=== PATIENT | female | born 1960 | race Caucasian/White ===

== ENCOUNTER → 2016-09-13 | Outpatient (CLI) | payer MEDICARE, MEDICAID ==
[~2016-09-13] MED LIST: AC500T PO; ALBU0.8322 IH; ALBU17AE23 IH; ALPR0.5T72 PO; ALPR1T PO; AMLO5TAB2 PO; ASP81CT PO; ASP81TEC PO; ATOR20TA49 PO; ATOR40TA PO; ATR20T PO; BACL10TA PO; BPR150TCR PO; BREO INH; CLCX200C PO; CPR500T PO; CYCL10TA45 PO; CYCL5TAB PO; DULO60CA6 PO; ESCI20TA38 PO; FLUT100D IH; FLUT9.9S NS; FURO20TA4 PO; HYDR-3062 PO; HYDR-3714 PO; ISOS30TA7 PO; ISOS30TA74 PO; KCL10CCR PO; LATA2.5D5 OU; LISI5TAB PO; LORA10TA7 PO; NAPR-243 PO; NF-ESOM40C PO; NTR.4SL SL; OMEG1CAP PO; ONDAN4ODT PO; POTA10CA43 PO; PRD10T PO; PREG75CA PO; PRM25T PO; PRO AIR; QUET200T PO; QUET300T PO; QUET300T3 PO; QUET50TA PO; RNT150T PO; RT-ALBUINH IH; RT-ALBUTEROL SULF 2.5 MG/3 ML PRE-MIX VIAL IH ONE; RT-ALBUTEROL SULF 2.5 MG/3 ML PRE-MIX VIAL ONE; SOD SULFACET; SUCR1TAB36 PO; TOPI100T11 PO; TOPI200T19 PO; TOPI50TA2 PO; TRAZ50TA67 PO; TRM50T PO; VARE1TAB17 PO; VILA20TA PO; [UNRECOGNIZED DRUG - OTHER]
== END ==
LOC: RT 10:15
PROVIDERS: ATTEND Nurse Practitioner Family
DX: R05 Cough (principal); R06.02 Shortness of breath; J44.9 Chronic obstructive pulmonary disease, unspecified; Z72.0 Tobacco use
CPT/HCPCS: 94060; 94640; 94726; 94729

== ENCOUNTER → 2016-10-04 | Outpatient (CLI) | payer MEDICARE, MEDICAID ==
[~2016-10-04] MED LIST changes: -RT-ALBUTEROL SULF 2.5 MG/3 ML PRE-MIX VIAL IH ONE; -RT-ALBUTEROL SULF 2.5 MG/3 ML PRE-MIX VIAL ONE
== END ==
LOC: RAD 11:44
PROVIDERS: ATTEND Internal Medicine Cardiovascular Disease
DX: I25.10 Atherosclerotic heart disease of native coronary artery without angina pectoris (principal); I65.23 Occlusion and stenosis of bilateral carotid arteries; I73.9 Peripheral vascular disease, unspecified; R06.02 Shortness of breath; Z72.0 Tobacco use
CPT/HCPCS: 93923

== ENCOUNTER → 2017-08-06 | Outpatient (CLI) | payer MEDICARE, MEDICAID ==
--- NOTE | 2017-08-06 12:22 | Diagnostic Imaging Report ---
PROCEDURE: MRI lumbar spine. TECHNIQUE: Multiplanar, multisequence MRI of the lumbar spine was performed without contrast. INDICATION: Low back pain. Correlation is made with prior MRI lumbar spine study from 09/08/2015. FINDINGS: Left convexity scoliotic curvature is noted. Lordotic curvature is normal. There appeared to be chronic compression fracture deformities involving T11 and L4, similar to prior study. Remaining lumbar vertebrae show normal stature and normal marrow signal intensity. No geographic marrow lesion is seen. Mild generalized disc desiccation is noted but no significant loss of disc space is seen. The conus is unremarkable at the L1 level. T12-L1: No central canal or neuroforaminal stenosis is identified. L1-L2: The degree of disc bulging seen on prior MRI is much improved. No significant disc bulge is present on today's study. No central canal or neuroforaminal stenosis is seen. There is some minimal linear signal noted in the posterior annulus midline at this level which may be owing to degeneration. L2-L3: There is ligamentous thickening and facet changes as well as mild annular bulging. However, no significant central canal or neuroforaminal stenosis is seen. L3-L4: There is ligamentous thickening and facet changes as well as broad-based disc/osteophyte complex. This does again demonstrate significant central canal stenosis, similar to prior exam. There is also mild left and moderate right neuroforaminal stenosis. L4-L5: Annular bulging is seen. Central canal is patent. The neuroforamina are patent. L5-S1: Central canal is patent. No neuroforaminal stenosis is seen. There are degenerative changes to the facets. Paraspinous tissues are unremarkable. IMPRESSION: Multilevel lumbar spondylosis and scoliosis, most marked at the L3-L4 level where there is central canal stenosis. This is similar to prior MRI from 09/08/2015. No acute compression fracture is detected. Dictated by: Dictated on workstation # [id number]
== END ==
LOC: RAD 11:17
PROVIDERS: ATTEND Orthopaedic Surgery
DX: M48.061 Spinal stenosis, lumbar region without neurogenic claudication (principal); M47.816 Spondylosis without myelopathy or radiculopathy, lumbar region; M41.86 Other forms of scoliosis, lumbar region
CPT/HCPCS: 72148

== ENCOUNTER 2017-10-16 11:34 | Outpatient (CLI) | payer MEDICARE, MEDICAID ==
[~2017-10-16] VITALS: Ht 165.1 cm; Wt 70.3 kg
[2017-10-16 11:41] VITALS: BP 113/66
[2017-10-16] MEDS ORDERED: OMEG-105 PO (12:30)
[2017-10-16] MEDS ORDERED: ESOM40CA52 PO (12:30)
[2017-10-16] MEDS ORDERED: FURO20TA4 PO (12:30)
[2017-10-16] MEDS ORDERED: ESCI20TA45 PO (12:30)
[2017-10-16] MEDS ORDERED: ISOS30TA3 PO (12:30)
[2017-10-16] MEDS ORDERED: TOPI200T8 PO (12:30)
[2017-10-16] MEDS ORDERED: ACHD5005 PO (12:30)
[2017-10-16] MEDS ORDERED: PREG100C PO (12:30)
[2017-10-16] MEDS ORDERED: FLUT1AER IH (12:30)
[2017-10-16] MEDS ORDERED: RT-ALBUINH IH (12:30)
[2017-10-16] MEDS ORDERED: POTA10TA10 PO (12:30)
[2017-10-16] MEDS ORDERED: ASPI-586 PO (12:30)
[2017-10-16] MEDS ORDERED: UMEC62.5 IH (12:33)
[2017-10-16 12:40] LABS: BASOPHILS % (AUTO) 0 % (0-10); EOSINOPHILS # (AUTO) 0.2 10^3/uL (0.0-0.3); EOSINOPHILS % (AUTO) 2 % (0-10); HEMATOCRIT 39 % (35-52); HEMOGLOBIN 13.2 G/DL (11.5-16.0); LYMPHOCYTES # (AUTO) 2.7 X 10^3 (1.0-4.0); LYMPHOCYTES % (AUTO) 40 % (12-44); MEAN CORPUSCULAR HEMOGLOBIN 30 PG (25-34); MEAN CORPUSCULAR HGB CONC 34 G/DL (32-36); MEAN CORPUSCULAR VOLUME 89 FL (80-99); MEAN PLATELET VOLUME 11.6 FL (7.4-10.4); MONOCYTES # (AUTO) 0.5 X 10^3 (0.0-1.0); MONOCYTES % (AUTO) 8 % (0-12); NEUTROPHILS # (AUTO) 3.3 X 10^3 (1.8-7.8); NEUTROPHILS % (AUTO) 50 % (42-75); PLATELET COUNT 185 10^3/uL (130-400); RED BLOOD COUNT 4.42 10^6/uL (4.35-5.85); RED CELL DISTRIBUTION WIDTH 13.3 % (10.0-14.5); WHITE BLOOD COUNT 6.7 10^3/uL (4.3-11.0)
[2017-10-16 13:14] LABS: BUN/CREATININE RATIO 11; CALCIUM 8.5 MG/DL (8.5-10.1); CARBON DIOXIDE 23 MMOL/L (21-32); CHLORIDE 110 MMOL/L (98-107); CREATININE SERUM 0.81 MG/DL (0.60-1.30); GFR ESTIMATED > 60; GLUCOSE 86 MG/DL (70-105); POTASSIUM 3.6 MMOL/L (3.6-5.0); SODIUM 141 MMOL/L (135-145)
[2017-10-16] MEDS ORDERED: LATA2.5D5 OU (13:19)
[2017-10-16] MEDS ORDERED: SUMA50TA2 PO (13:19)
[2017-10-16] MEDS ORDERED: BUPR100T7 PO (13:19)
[2017-10-16] MEDS ORDERED: MONT10TA24 PO (13:19)
[2017-10-16] MEDS ORDERED: FLUT15.88 NSEACH (13:19)
[2017-10-16] MEDS ORDERED: ALBU0.63 IH (13:19)
== END 2017-10-16 12:10 | disposition home or self-care (01) ==
LOC: PREOP 11:34
PROVIDERS: ATTEND Orthopaedic Surgery
DX: Z01.812 Encounter for preprocedural laboratory examination (principal); Z11.2 Encounter for screening for other bacterial diseases; M48.061 Spinal stenosis, lumbar region without neurogenic claudication
CPT/HCPCS: 36415; 80048; 85025; 87081

== ENCOUNTER 2017-10-22 08:45 | Day surgery (SDC) | payer MEDICARE, MEDICAID ==
[~2017-10-22] VITALS: Ht 165.1 cm; Wt 70.3 kg
[~2017-10-22 08:45] MED LIST changes: +ACHD5005 PO; +ALBU0.63 IH; +ASPI-586 PO; +BUPR100T7 PO; +ESCI20TA45 PO; +ESOM40CA52 PO; +FLUT15.88 NSEACH; +FLUT1AER IH; +ISOS30TA3 PO; +MONT10TA24 PO; +OMEG-105 PO; +POTA10TA10 PO; +PREG100C PO; +SUMA50TA2 PO; +TOPI200T8 PO; +UMEC62.5 IH
[2017-10-22] MEDS ORDERED: proPOfol 200 MG/20 ML (DIPRIVAN) VIAL IV ONE (08:53)
[2017-10-22] MEDS ORDERED: SEVOFLURANE (ULTANE) 15 ML INHAL SOLN ONE ×2 (08:53→12:04)
[2017-10-22] MEDS ORDERED: ROCURONIUM 10 MG/ML 5 ML SYRINGE IV ONE (08:53)
[2017-10-22] MEDS ORDERED: LIDOCAINE PF 2% 5 ML (XYLOCAINE) VIAL ONE (08:53)
[2017-10-22] MEDS ORDERED: MIDAZOLAM 2 MG/2 ML (VERSED) VIAL ONE (08:53)
[2017-10-22] MEDS ORDERED: fentaNYL INJECTION 250 MCG/5 ML AMP ONE (08:53)
[2017-10-22] MEDS ORDERED: ONDANSETRON 4 MG/2 ML (SDV) Z0FRAN ONE (08:53)
[2017-10-22] MEDS ORDERED: NICOTINE 14 MG (NICODERM) PATCH TD SCH (09:00)
[2017-10-22] MEDS ORDERED: RT-ALBUTEROL SULF 2.5 MG/3 ML PRE-MIX VIAL INH ONE (09:15)
[2017-10-22] MEDS ORDERED: BACITRACIN 100,000 UNIT/NS 1000 ML POUR BOTTLE IR ONE ×2 (09:30)
[2017-10-22] MEDS ORDERED: ceFAZolin 2 GM IV Premixed 50 ML IV ONE (09:30)
[2017-10-22] MEDS: LACTATED RINGERS 1,000 ML IV PRN ×2 (09:35→11:25)
[2017-10-22] MEDS ORDERED: VANCOMYCIN 1000 MG/VIAL ONE (09:41)
[2017-10-22] MEDS ORDERED: DEXMEDETOMIDINE 200 MCG/2 ML (PRECEDEX) VIAL IV ONE (10:17)
[2017-10-22] MEDS ORDERED: BUP/EPI 0.5% 1:200,000 (SENSORCAINE) 30 ML VIAL ONE (11:06)
[2017-10-22] MEDS ORDERED: DEXAMETHASONE 10 MG/ML (DECADRON) 1 ML VIAL ONE (11:33)
[2017-10-22] MEDS ORDERED: NEOSTIGMINE 1 MG/ML 5 ML SYRINGE ONE (11:48)
[2017-10-22] MEDS ORDERED: GLYCOPYRROLATE 0.2 MG/ML (ROBINUL) 2 ML VIAL ONE (11:48)
[2017-10-22] MEDS ORDERED: ONDANSETRON 4 MG/2 ML (SDV) Z0FRAN IVP PRN (12:15)
[2017-10-22] MEDS ORDERED: morphine INJ 10 MG/ML 1ML (SYR OR VIAL) IVP PRN (12:15)
[2017-10-22] MEDS ORDERED: BACLOFEN 10 MG (LIORESAL) TAB PO PRN (12:30)
[2017-10-22] MEDS ORDERED: BISACODYL 5 MG (DULCOLAX) TABLET PO PRN (12:30)
[2017-10-22] MEDS ORDERED: SUMAtriptan 50 MG (IMITREX) TAB PO PRN (12:30)
[2017-10-22] MEDS ORDERED: BISACODYL 10 MG SUPP (DULCOLAX) PR PRN (12:30)
[2017-10-22] MEDS ORDERED: RT-ALBUTEROL SULF 2.5 MG/3 ML PRE-MIX VIAL IH PRN (12:30)
[2017-10-22] MEDS ORDERED: NON-FORMULARY MEDICATION 1 EA EA (Albuterol Sulfate 0.63 MG) IH PRN (12:30)
[2017-10-22] MEDS ORDERED: PROMETHAZINE 25 MG (PHENERGAN) TAB PO PRN (12:30)
[2017-10-22] MEDS ORDERED: ACETAMINOPHEN 325 MG TABLET/CAPLET (TYLENOL) PO PRN (12:30)
[2017-10-22] MEDS ORDERED: oxyCODONE/APAP 5/325MG (PERCOCET 5) TABLET PO PRN (12:30)
[2017-10-22] MEDS ORDERED: ONDANSETRON 4 MG/2 ML (SDV) Z0FRAN IV PRN (12:30)
[2017-10-22 13:00] VITALS: BP 93/51
[2017-10-22] MEDS: HYDROcodone/APAP 5 MG/325 MG (LORTAB) TAB PO PRN ×2 (13:30→21:23)
[2017-10-22] MEDS ORDERED: PATIENT MAY USE OWN MEDS, ALL MC SCH (13:45)
[2017-10-22] MEDS: SUCRALFATE 1 GM (CARAFATE) TAB PO SCH ×2 (13:45→21:24)
[2017-10-22] MEDS: PREGABALIN 100 MG (LYRICA) CAPSULE PO SCH ×2 (14:00→22:35)
--- NOTE | 2017-10-22 14:38 | Diagnostic Imaging Report ---
Indication: Fluoroscopy for lumbar spine surgery. Fluoroscopy was provided in the OR during lumbar spine surgery. Seven seconds of fluoroscopy was utilized. Two images were obtained. Surgical instruments are noted in the posterior soft tissues at the L4-5 level. Impression: Fluoroscopy for lumbar spine surgery. Dictated by: Dictated on workstation # [id number]
[2017-10-22 15:20] VITALS: BP 84/50
[2017-10-22] MEDS: fentaNYL INJECTION 100 MCG/2 ML AMP IVP PRN ×2 (15:35→22:42)
[2017-10-22] MEDS: ceFAZolin INJECTION 1,000 MG in NS (IVPB) 50 ML IV SCH (16:25)
--- NOTE | 2017-10-22 17:17 | OPERATIVE REPORT ---
DATE OF SERVICE: 10/22/2017 SURGEON: Natalie Gomez DO MERCHANT MARINER: SHAUNA Foy This is a medically necessary procedure. Assistance is necessary for retraction of vital neurovascular structures. Without an assistant clinical nurse manager, the procedure would not be possible. PREOPERATIVE DIAGNOSES: 1. Lumbar spinal stenosis (central, connective tissue). 2. Lumbar radiculopathy. 3. Neurogenic claudication. POSTOPERATIVE DIAGNOSES: 1. Lumbar spinal stenosis (central, connective tissue). 2. Lumbar radiculopathy. 3. Neurogenic claudication. PROCEDURE PERFORMED: L3-4 bilateral laminectomy with hemifacetectomy and foraminotomies. COMPLICATIONS: None. SPECIMENS: None. DRAINS PLACED: None. ESTIMATED BLOOD LOSS: Minimal. HISTORY OF PRESENT ILLNESS: The patient is a very pleasant 57-year-old female who presented to me with neurogenic claudication. She failed all conservative measures and wished to proceed with surgery. DESCRIPTION OF PROCEDURE: The patient was identified by name and wrist band in the preoperative holding area. Her operative site was signed, consent was signed. SCDs were placed. Neuromonitoring was hooked up and antibiotics were started. She was taken to the operating room theater and placed under general endotracheal tube anesthesia and transferred to the operating room table in the prone position. She was prepped and draped in usual sterile fashion. Formal timeout was conducted. At this point, lateral x-ray was used to ada out the extent of my incision. I infiltrated the skin and soft tissue with 0.5% Marcaine with epinephrine. I made a midline incision from the spinous process of L3, spinous process of L4, I proceed with bilateral subperiosteal paraspinal muscular approach exposing the L3-L4 posterior elements. I used a Leksell rongeur, high speed bur and Kerrison rongeurs to perform bilateral laminectomy, hemifacetectomies and foraminotomies and I was happy with the decompression. I irrigated the wound, maintained hemostasis and I closed the wound in my usual layered fashion utilizing 0 Vicryl followed by 2-0 Vicryl followed by running 3-0 subcuticular stitch. I then placed the patient in the supine position, took her to PACU where she awoke without incident. She tolerated the procedure well. Plan at this time is to discharge the patient today. She knows to avoid any bending, twisting, pushing, pulling. Follow up with me in 2 weeks. Keep her wound clean and dry. Job ID: [id number] DocumentID: [id number] Dictated Date: 10/22/2017 11:42:13 Antique Furniture Reproducer Date: 10/22/2017 17:16:55 Dictated By: NATALIE GOMEZ DO
--- OUTSIDE RECORDS SUMMARY | 2017-10-22 17:54 | XMS REPORT ---
Author Author HASEEB COOK Organization [facility] Address [address] [place] [address] Care Team Providers Care Cleaner And Trimmer Name Role Phone HASEEB COOK Unavailable PROBLEMS Type Condition ICD9-CM Code [id number] Code Onset Dates Condition Status SNOMED Code Problem Arthritis M19.90 Active 6693922 Problem Mixed hyperlipidemia E78.2 Active 609803562 Problem Chronic pain syndrome G89.4 Active 495472115 Problem Chronic obstructive pulmonary disease (COPD) suggested by initial evaluation J44.9 Active 49921205 Problem Gastroesophageal reflux disease without esophagitis K21.9 Active 014424236 Problem 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 09790975 Problem Migraine without aura and with status migrainosus, not intractable G43.001 Active 528665866 Problem Chronic renal insufficiency, stage 1 N18.1 Active 739437547 Problem Cervical pain M54.2 Active 59728430 Problem Compression fracture T14.8 Active 812494450 Problem Back pain at L4-L5 level M54.5 Active 175741476 ALLERGIES Unknown Allergies SOCIAL HISTORY No smoking Hx information available PLAN OF CARE VITAL SIGNS MEDICATIONS Medication Instructions Dosage Frequency Start Date End Date Duration Status Hydrocodone-Acetaminophen 5-325 MG Orally 2 times a day prn 1 tablet as needed Active RESULTS No Results PROCEDURES No Known procedures IMMUNIZATIONS No Known Immunizations
--- OUTSIDE RECORDS SUMMARY | 2017-10-22 17:54 | XMS REPORT ---
Author Author HASEEB COOK Organization [employer] Address Unknown Phone Unavailable Care Team Providers Care Pulley Worker Name Role Phone HASEEB COOK CP Unavailable Allergies No Known Allergies Problems Problem Type Condition Code Onset Dates Condition Status Problem Cervical pain M54.2 Active Problem Gastroesophageal reflux disease without esophagitis K21.9 Active Problem Mixed hyperlipidemia E78.2 Active Problem Migraine without aura and with status migrainosus, not intractable G43.001 Active Problem Back pain at L4-L5 level M54.5 Active Problem 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 Problem Chronic pain syndrome G89.4 Active Problem Chronic renal insufficiency, stage 1 N18.1 Active Problem Compression fracture T14.8 Active Problem Arthritis M19.90 Active Medications No Known Medications Results No Known Results Summary Purpose [employer] Submission
--- OUTSIDE RECORDS SUMMARY | 2017-10-22 17:54 | XMS REPORT ---
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 Active Problem Other disorder of coccyx 724.79 Active Problem Lumbago 724.2 Active Problem Impaired fasting glucose 790.21 Active Problem Pure hyperglyceridemia 272.1 Active Problem Other and unspecified hyperlipidemia 272.4 Active Problem Onychia and paronychia of finger 681.02 Active Problem Unspecified myalgia and myositis 729.1 Active Problem Costochondritis 733.6 Active Problem Edema 782.3 Active Problem Unspecified hypothyroidism 244.9 Active Problem Peptic ulcer, unspecified site, unspecified as acute or chronic, without mention of hemorrhage, perforation, or obstruction 533.90 Active Problem Enthesopathy of hip region 726.5 Active Problem Nondependent tobacco use disorder 305.1 Active Problem Unspecified arthropathy, site unspecified 716.90 Active Problem Unspecified disorder of kidney and ureter 593.9 Active Problem Painful respiration 786.52 Active Problem Encounter for long-term (current) use of other medications V58.69 Active Problem Nonspecific abnormal results of thyroid function study 794.5 Active Problem Esophageal reflux 530.81 Active Problem Dizziness and giddiness 780.4 Active Problem Diabetes mellitus without mention of complication, type II or unspecified type, not stated as uncontrolled 250.00 Active Problem Chest pain, unspecified 786.50 Active Problem Orthostatic hypotension 458.0 Active Problem Cervicalgia 723.1 Active Problem Shortness of breath 786.05 Active Problem Other disorder of impulse control 312.39 Active Problem Sacroiliitis, not elsewhere classified 720.2 Active Problem Dyspepsia and other specified disorders of function of stomach 536.8 Active Problem Disturbance of skin sensation 782.0 Active Problem Special screening for malignant neoplasms, colon V76.51 Active Problem Routine gynecological examination V72.31 Active Problem Disturbance of salivary secretion 527.7 Active Problem Abnormal involuntary movements 781.0 Active Medications Medication Code System Code Instructions Start Date End Date Status Dosage Zantac 75 [facility] [address]-34 75 MG Orally 2 times a day Feb 03, 2015 1 tablet Results No Known Results Summary Purpose [employer] Submission
--- OUTSIDE RECORDS SUMMARY | 2017-10-22 17:54 | XMS REPORT ---
Author Author HASEEB COOK Organization [employer] Address Unknown Phone Unavailable Care Team Providers Care Supervisor Engraving Name Role Phone HASEEB COOK CP Unavailable [...]
--- OUTSIDE RECORDS SUMMARY | 2017-10-22 17:56 | XMS REPORT ---
Author Author HASEEB COOK Organization [facility] Address [address] [place] [address] Care Team Providers Care Slip Feeder Name Role Phone HASEEB COOK Unavailable PROBLEMS Type Condition ICD9-CM Code [id number] Code Onset Dates Condition Status SNOMED Code Problem Arthritis M19.90 Active 7592912 Problem Mixed hyperlipidemia E78.2 Active 767283541 Problem Chronic pain syndrome G89.4 Active 733916644 Problem Chronic obstructive pulmonary disease (COPD) suggested by initial evaluation J44.9 Active 44231559 Problem Gastroesophageal reflux disease without esophagitis K21.9 Active 795984790 Problem 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 48924388 Problem Migraine without aura and with status migrainosus, not intractable G43.001 Active 622764877 Problem Chronic renal insufficiency, stage 1 N18.1 Active 230795987 Problem Cervical pain M54.2 Active 16873960 Problem Compression fracture T14.8 Active 589023627 Problem Back pain at L4-L5 level M54.5 Active 279570055 ALLERGIES No Information SOCIAL HISTORY Never Assessed PLAN OF CARE VITAL SIGNS MEDICATIONS Medication Instructions Dosage Frequency Start Date End Date Duration Status Albuterol Sulfate 0.083% Inhalation 2 times a day 3 ml 12h 20 Active RESULTS No Results PROCEDURES No Known procedures IMMUNIZATIONS No Known Immunizations MEDICAL (GENERAL) HISTORY Type Description Date Medical History 11/2009 cardiovascular disorder-- lexiscan normal done by Dr Alba Medical History respiratory disorder-- PFT's 08/18/09: "possible small airway disease, otherwise normal." Will trial on Albuterol Medical History gastrointestinal disorder-- colon cancer screening 08/2009: hemoccult cards negative Medical History post cholecyectomy Medical History hyperlipidemia Medical History arthritis-- MRI of the L-spine 11/2009- degenerative disc disease, most pronounced @ L2-3; no evidence of spinal stenosis or nerve root encroachment Medical History evaluated by Thad Fermin 10/2009- dx of right sacroiliac joint dysfunction w/ a chronic lumbosacral sprain and core deconditioning. PT ordered Medical History headache syndromes Medical History psychiatric disorders- depression, panic disorder, dependent personality disorder. Being seen by [facility] Medical History chonic pain since 1994 when pt fell and pulled tendons in back , hip, and right knee Medical History sleep study- negative for apnea, positive for primary snoring disorder Medical History Peptic ulcer, unspecified site, unspecified as acute or chronic, without mention of hemorrhage, perforation, or obstruction Medical History Impaired fasting glucose Surgical History genito-urinary tract surgery Surgical History hysterectomy 1986 partial--2004 oophorectomy Surgical History arthroscopy of the right knee- done by Dr Coleman 06/2009 Surgical History EGD: hiatal hernia, multiple stomach ulcers in the antrum (2- 3 mm in diameter), shallow erosions in the duodenum. Biopsy negative for H pylori. 07/2012 Surgical History heart cath - did not show any significant CAD Spring 2009 Surgical History bilat eye lid surgery for drooping 10/06/13 Hospitalization History numerous hospitalizations
--- OUTSIDE RECORDS SUMMARY | 2017-10-22 17:56 | XMS REPORT ---
Author HASEEB Valverde Organization [employer] Address Unknown Phone Unavailable Care Team Providers Care Production Support Manager Name Role Phone HASEEB COOK CP Unavailable Allergies No Known Allergies Problems Problem Type Condition Code Onset Dates Condition Status Problem Chronic pain syndrome G89.4 Active Problem Chronic renal insufficiency, stage 1 N18.1 Active Problem Arthritis M19.90 Active Problem Cervical pain M54.2 Active Problem Gastroesophageal reflux disease without esophagitis K21.9 Active Problem Mixed hyperlipidemia E78.2 Active Medications No Known Medications Results No Known Results Summary Purpose [employer] Submission
--- OUTSIDE RECORDS SUMMARY | 2017-10-22 17:56 | XMS REPORT ---
Author HASEEB Valverde Organization [employer] Address Unknown Phone Unavailable Care Team Providers Care Nursing Home Admissions Director Name Role Phone HASEEB COOK CP Unavailable Allergies No Known Allergies Problems Problem Type Condition Code Onset Dates Condition Status Problem Chronic pain syndrome G89.4 Active Problem Chronic renal insufficiency, stage 1 N18.1 Active Problem Arthritis M19.90 Active Problem Cervical pain M54.2 Active Problem Gastroesophageal reflux disease without esophagitis K21.9 Active Problem Mixed hyperlipidemia E78.2 Active Medications Medication Code System Code Instructions Start Date End Date Status Dosage Lyrica [facility] [id number] 75MG TAKE ONE CAPSULE BY MOUTH TWICE DAILY FOR NEUROPATHY/ANXIETY AND PAIN Results No Known Results Summary Purpose [employer] Submission
--- OUTSIDE RECORDS SUMMARY | 2017-10-22 17:56 | XMS REPORT ---
Author HASEEB Valverde Organization [employer] Address Unknown Phone Unavailable Care Team Providers Care Asphalt Heater Tender Name Role Phone HASEEB COOK CP Unavailable [...] Start Date End Date Status Dosage Lyrica [facility] [id number] 75MG TAKE ONE CAPSULE BY MOUTH TWICE DAILY FOR NEUROPATHY/ANXIETY AND PAIN Results No Known Results Summary Purpose [employer] Submission
--- OUTSIDE RECORDS SUMMARY | 2017-10-22 17:56 | XMS REPORT ---
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
--- OUTSIDE RECORDS SUMMARY | 2017-10-22 17:56 | XMS REPORT ---
Author HASEEB Valverde Organization [employer] Address Unknown Phone Unavailable Care Team Providers Care Photo Lab Specialist Name Role Phone HASEEB COOK CP Unavailable Allergies No Known Allergies Problems Problem Type Condition Code Onset Dates Condition Status Problem Chronic pain syndrome G89.4 Active Problem Chronic renal insufficiency, stage 1 N18.1 Active Problem Arthritis M19.90 Active Problem Cervical pain M54.2 Active Assessment Chronic renal insufficiency, stage 1 N18.1 Active Problem Gastroesophageal reflux disease without esophagitis K21.9 Active Problem Mixed hyperlipidemia E78.2 Active Medications No Known Medications Results No Known Results Summary Purpose [employer] Submission
--- OUTSIDE RECORDS SUMMARY | 2017-10-22 17:56 | XMS REPORT ---
Author Author HASEEB COOK Organization [employer] Address Unknown Phone Unavailable Care Team Providers Care Computer Tape Librarian Name Role Phone HASEEB COOK CP Unavailable [...] Instructions Start Date End Date Status Dosage Carafate [facility] [address]-55 1 GM 3 times a day Feb 10, 2015 1 tablet on an empty stomach before meals Results No Known Results Summary Purpose [employer] Submission
--- OUTSIDE RECORDS SUMMARY | 2017-10-22 17:56 | XMS REPORT ---
Author Author HASEEB COOK Organization [facility] Address [address] [place] [address] Care Team Providers Care Payment Processor Name Role Phone HASEEB COOK Unavailable PROBLEMS Type Condition ICD9-CM Code [id number] Code Onset Dates Condition Status SNOMED Code Problem Gastroesophageal reflux disease without esophagitis K21.9 Active 115926498 Problem Chronic renal insufficiency, stage 1 N18.1 Active 328287068 Problem Cervical pain M54.2 Active 51143208 Problem Chronic fatigue R53.82 Active 96713116 Problem Psychiatric illness F99 Active 39059803 Problem Compression fracture T14.8 Active 532082601 Problem Back pain at L4-L5 level M54.5 Active 149901486 Problem 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 05490147 Problem Migraine without aura and with status migrainosus, not intractable G43.001 Active 368150314 Problem Chronic obstructive pulmonary disease (COPD) suggested by initial evaluation J44.9 Active 29989651 Problem Arthritis M19.90 Active 8243690 Problem Chronic pain syndrome G89.4 Active 287910270 Problem Infarction of distal end of right femur M87.051 Active 298618423 Problem Mixed hyperlipidemia E78.2 Active 174516560 ALLERGIES No Information ENCOUNTERS Encounter Location Date Diagnosis [facility] [id number] [address] Sep, Arthritis M19.90 [facility] [id number], [place] [address] Sep, [facility] [id number] [place] [address] 56968- 2875 Aug, Chronic pain syndrome G89.4 ; Chronic obstructive pulmonary disease (COPD) suggested by initial evaluation J44.9 ; Arthritis M19.90 ; Migraine without aura and with status migrainosus, not intractable G43.001 ; Gastroesophageal reflux disease without esophagitis K21.9 ; Mixed hyperlipidemia E78.2 ; Chronic renal insufficiency, stage 1 N18.1 and Chronic fatigue R53.82 [facility] [facility] [id number] [place] [address] 13315- 3212 Aug, Chronic pain syndrome G89.4 [facility] [id number] [place] [address] 18663- 8008 Aug, [facility] [id number] [place] [address] 38126- 0145 Aug, Arthritis M19.90 [facility] [id number] [place] [address] 55886- 0163 Aug, [facility] [id number] [place] [address] 53176- 9104 Jul, Chronic pain syndrome G89.4 ; Chronic obstructive pulmonary disease (COPD) suggested by initial evaluation J44.9 ; Arthritis M19.90 ; Migraine without aura and with status migrainosus, not intractable G43.001 ; Gastroesophageal reflux disease without esophagitis K21.9 ; Mixed hyperlipidemia E78.2 ; Chronic renal insufficiency, stage 1 N18.1 and Closed compression fracture of L4 lumbar vertebra with delayed healing, subsequent encounter S32.040G [place] [id number] [place] [address] 99042- 7715 Jul, Chronic pain syndrome G89.4 [facility] [id number] [place] [address] 25184- 0357 Jul, [facility] [facility] [id number] [place] [address] 17000- 2122 Jul, [facility] [facility] [id number] [place] [address] 81443- 1524 Jul, Arthritis M19.90 [facility] [id number] [place] [address] 10436- 4056 Jul, Infarction of distal end of right femur M87.051 [place] [facility] [address], [place] [address] 3462 Jun, Chronic pain syndrome G89.4 ; Chronic obstructive pulmonary disease (COPD) suggested by initial evaluation J44.9 ; Arthritis M19.90 ; Migraine without aura and with status migrainosus, not intractable G43.001 ; Gastroesophageal reflux disease without esophagitis K21.9 ; Mixed hyperlipidemia E78.2 ; Chronic renal insufficiency, stage 1 N18.1 ; Pain in right ankle and joints of right foot M25.571 and Pain, joint, knee, right M25.561 [place] [facility] [id number] [place] [address] 58074- 2606 Jun, Arthritis M19.90 [facility] [facility] [id number] [place] [address] 93247- 7530 May, [facility] [id number] [place] [address] 62888- 4895 May, Chronic pain syndrome G89.4 and Migraine without aura and with status migrainosus, not intractable G43.001 [place] [id number] [place] [address] 83473- 8363 May, Arthritis M19.90 [facility] [facility] [id number] [place] [address] 11894- 3828 May, Chronic obstructive pulmonary disease (COPD) suggested by initial evaluation J44.9 [place] [id number] [place] [address] 39743- 1723 Apr, [place] [facility] [id number] [place] [address] 71635- 4902 Apr, Arthritis M19.90 [facility] [facility] [id number] [place] [address] 74054- 4248 Mar, Arthritis M19.90 [facility] [id number] [place] [address] 17292- 1439 Feb, [place] [id number] [place] [address] 07197- 6042 Feb, [facility] [id number] [place] [address] 57170- 6613 Feb, Chronic pain syndrome G89.4 [place] [id number] [place] [address] 46331- 2707 13 Feb, 2017 Migraine without aura and with status migrainosus, not intractable G43.001 ; Arthritis M19.90 ; Gastroesophageal reflux disease without esophagitis K21.9 ; Chronic pain syndrome G89.4 ; Chronic renal insufficiency, stage 1 N18.1 ; Mixed hyperlipidemia E78.2 ; Chronic obstructive pulmonary disease (COPD) suggested by initial evaluation J44.9 ; Skin infection L08.9 and Encounter for immunization Z23 [place] [id number] [place] [address] 60026- 2603 Jan, Migraine without aura and with status migrainosus, not intractable G43.001 [place] [address] 80167- 6258 Jan, Migraine without aura and with status migrainosus, not intractable G43.001 [place] [id number] [place] [address] 99590- 0438 Jan, Arthritis M19.90 [place] [id number] [place] [address] 21507- 0860 Jan, [place] [id number] [place] [address] 61380- 5285 Dec, Arthritis M19.90 [place] [id number] [place] [address] 16956- 8375 Nov, Gastroesophageal reflux disease without esophagitis K21.9 [place] [address] 35124- 2616 Nov, Arthritis M19.90 [place] [id number] [place] [address] 87214- 8294 October, Chronic pain syndrome G89.4 ; Arthritis M19.90 ; Chronic renal insufficiency, stage 1 N18.1 ; Gastroesophageal reflux disease without esophagitis K21.9 ; Cervical pain M54.2 and Chronic obstructive pulmonary disease (COPD) suggested by initial evaluation J44.9 [facility] [id number] [place] [address] 87049- 5732 October, [facility] [id number] [place] [address] 42316- 3104 October, Chronic obstructive pulmonary disease (COPD) suggested by initial evaluation J44.9 [facility] [id number] [place] [address] 45781- 2280 October, 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 [facility] [id number] [place] [address] 35440- 1908 October, Mixed hyperlipidemia E78.2 ; Migraine without aura and with status migrainosus, not intractable G43.001 and 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 [facility] [id number] [place] [address] 45866- 0612 October, [facility] [id number] [place] [address] 63651- 3831 October, [facility] [id number] [place] [address] 15395- 0164 October, [facility] [id number] [place] [address] 40020- 2391 October, [facility] [id number] [place] [address] 88977- 5965 October, [facility] [id number] [place] [address] 91025- 0826 Sep, Chronic pain syndrome G89.4 [facility] [id number] [place] [address] 69207- 1187 Sep, Chronic pain syndrome G89.4 [facility] [id number] [place] [address] 28055- 5293 Sep, [facility] [id number] [place] [address] 92578- 9485 Sep, [facility] [id number] [place] [address] 52229- 8848 Sep, Chronic pain syndrome G89.4 [facility] [id number] [place] [address] 04376- 2881 Aug, Chronic pain syndrome G89.4 [facility] [id number] [place] [address] 76328- 7174 Aug, Chronic pain syndrome G89.4 and Mixed hyperlipidemia E78.2 [facility] [id number] [place] [address] 20938- 9634 Jul, [facility] [id number] [place] [address] 80710- 8750 Jun, [facility] [id number] [place] [address] 37124- 4723 Jun, Chronic pain syndrome G89.4 [facility] [id number] [place] [address] 85136- 1983 Jun, [facility] [id number] [place] [address] 68159- 7071 May, Fever chills R50.9 ; Chronic pain syndrome G89.4 ; Chronic renal insufficiency, stage 1 N18.1 ; Influenza B J10.1 ; Upper respiratory tract infection, unspecified type J06.9 and Migraine without aura and with status migrainosus, not intractable G43.001 [facility] [id number] [place] [address] 25896- 4053 May, [facility] [id number] [place] [address] 32139- 2504 Apr, [facility] [id number] [place] [address] 05301- 8225 Apr, [facility] [id number] [place] [address] 82329- 5528 Apr, [facility] [id number] [place] [address] 26879- 8445 Mar, [facility] [id number] [place] [address] 41262- 4133 Mar, [facility] [id number] [place] [address] 56713- 1006 Mar, Left anterior shoulder pain M25.512 [facility] [id number] [place] [address] 90793- 3352 Mar, Left anterior shoulder pain M25.512 ; Chronic pain syndrome G89.4 and Chronic renal insufficiency, stage 1 N18.1 [facility] [id number] [place] [address] 95272- 6382 Mar, [facility] [id number] [place] [address] 63860- 3178 Feb, [facility] [id number] [place] [address] 16600- 9543 Feb, [facility] [id number] [place] [address] 55407- 4823 Feb, [facility] [id number] [place] [address] 15937- 1392 Feb, Encounter for immunization Z23 [facility] [id number] [place] [address] 22463- 6349 Feb, [facility] [id number] [place] [address] 97098- 3775 Feb, [facility] [id number] [place] [address] 79296- 7863 Feb, Chronic pain syndrome G89.4 ; Chronic renal insufficiency, stage 1 N18.1 ; Migraine without aura and with status migrainosus, not intractable G43.001 ; Gastroesophageal reflux disease without esophagitis K21.9 ; Mixed hyperlipidemia E78.2 and 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 [place] [address] [address]- 7772 Jan, [facility] [id number] [place] [address] 73802- 3335 Nov, Chronic pain syndrome G89.4 ; Chronic renal insufficiency, stage 1 N18.1 ; Migraine without aura and with status migrainosus, not intractable G43.001 and Gastroesophageal reflux disease without esophagitis K21.9 [facility] [id number] [place] [address] 01979- 3995 October, [facility] [id number] [place] [address] 69488- 6692 October, [facility] [id number] [place] [address] 72306- 1135 Sep, [facility] [id number] [place] [address] 92717- 9064 Sep, Back pain at L4-L5 level M54.5 and Compression fracture T14.8 [facility] [id number] [place] [address] 55063- 0788 Aug, [facility] [id number] [place] [address] 86600- 6583 Aug, [facility] [address] [place] [address] 19969- 0922 Aug, Back pain at L4-L5 level M54.5 and Compression fracture T14.8 [facility] [id number] [place] [address] 60631- 4534 Aug, Rib pain on right side R07.81 ; Right hip pain M25.551 and Lumbar pain M54.5 [facility] [id number] [place] [address] 57651- 2569 Jul, [facility] [address] [place] [address] 51787- 4122 Jul, [facility] [id number] [address]- 7416 Jul, Chronic pain syndrome G89.4 ; Chronic renal insufficiency, stage 1 N18.1 ; Mixed hyperlipidemia E78.2 and Scleritis, left H15.002 [facility] [address], [place] [address]- 5711 Jun, [facility] [id number] [place] [address] 28961- 7356 May, [facility] [id number] [place] [address] 16441- 8864 Apr, [facility] [id number] [place] [address] 30337- 4257 Apr, [facility] [id number] [place] [address] 20109- 1632 Apr, [facility] [id number] [place] [address] 24108- 9572 Mar, [facility] [id number] [place] [address] 99133- 7273 Mar, Chronic renal insufficiency, stage 1 N18.1 [facility] [address] [place] [address] 32837- 1690 Mar, Arthritis M19.90 ; Encounter for immunization Z23 ; Chronic pain syndrome G89.4 ; Chronic renal insufficiency, stage 1 N18.1 ; Gastroesophageal reflux disease without esophagitis K21.9 and Mixed hyperlipidemia E78.2 [facility] [address], [place] [address]- 7996 Mar, [facility] [id number] [place] [address] 12507- 7384 Feb, [facility] [address], [place] [address]- 0768 Feb, [facility] [address] [place] [address] 61784- 5449 Dec, [facility] [address] [address]- 9702 Dec, Unspecified myalgia and myositis 729.1 ; Sacroiliitis, not elsewhere classified 720.2 ; Headache 784.0 ; Renal insufficiency 593.9 ; Vitamin D deficiency 268.9 ; Fatigue 780.79 and Edema 782.3 [facility] [id number] [place] [address] 40338- 7184 Dec, [facility] [id number] [place] [address] 77796- 1832 Dec, [facility] [id number] [place] [address] 67025- 7760 Dec, [facility] [id number] [place] [address] 04095- 8618 Dec, [facility] [id number] [place] [address] 19239- 4022 Dec, [facility] [address] [place] [address] 88054- 2320 Nov, [facility] [id number] [place] [address] 54247- 9271 Nov, [facility] [address], [place] [address]- 6966 Nov, [facility] [id number] [place] [address] 20191- 7786 Nov, Unspecified myalgia and myositis 729.1 ; Nausea alone 787.02 ; Sacroiliitis, not elsewhere classified 720.2 ; Headache 784.0 and Renal insufficiency 593.9 [facility] [address] [place] [address] 27343- 5831 October, [facility] [address], [place] [address]- 4764 October, [facility] [id number] [place] [address] [place] [address]- 5948 14 Sep, 2014 [facility] [place] [facility] [address] [id number] [place] [address]- 2980 13 Sep, 2014 [facility] [place] [facility] [address] [id number] [place] [address]- 1916 30 Aug, 2014 [facility] [place] [facility] [address] [id number] [place] [address]- 8016 30 Aug, 2014 [facility] [place] [facility] [address] [id number] [place] [address]- 3061 20 Aug, 2014 [facility] [place] [facility] [address] [id number] [place] [address]- 8113 20 Aug, 2014 [facility] [place] [facility] [address] [id number] [place] [address]- 2007 20 Aug, 2014 [facility] [place] [facility] [address] [id number] [place] [address]- 2201 20 Aug, 2014 [facility] [place] [facility] [address] [id number] [place] [address]- 3785 13 Aug, 2014 [facility] [place] [facility] [address] [id number] [place] [address]- 2879 13 Aug, 2014 [facility] [place] [facility] [address] [id number] [place] [address]- 8937 13 Aug, 2014 [facility] [place] [facility] [address] [id number] [place] [address]- 6089 13 Aug, 2014 [facility] [place] [facility] [address] [id number] [place] [address]- 0023 11 Aug, 2014 [facility] [place] [facility] [address] [id number] [place] [address]- 0374 11 Aug, 2014 [facility] [place] [facility] [address] [id number] [place] [address]- 5409 05 Aug, 2014 [facility] [place] [facility] [address] [id number] [place] [address]- 3646 05 Aug, 2014 [facility] [place] [facility] [address] [id number] [place] [address]- 8565 Aug, 2014 [facility] [place] [facility] [address] [id number] [place] [address]- 6600 Aug, 2014 [facility] [place] [facility] [address] [id number] [place] [address]- 3917 Jul, 2014 [facility] [place] [facility] [address] [id number] [place] [address]- 5292 Jul, 2014 [facility] [place] [facility] [address] [id number] [place] [address]- 6105 Jul, 2014 [facility] [place] [facility] [address] [id number] [place] [address]- 1321 Jul, 2014 [facility] [place] [facility] [address] [facility] [id number] [place] [address]- 6576 Jul, 2014 [facility] [place] [facility] [address] [facility] [id number] [place] [address]- 8175 Jul, 2014 [facility] [place] [facility] [address] [facility] [id number] [place] [address]- 4304 Jul, 2014 [facility] [place] [facility] [address] [facility] [id number] [place] [address]- 2601 Jul, 2014 [facility] [place] [facility] [address] [facility] [id number] [place] [address]- 5007 Jul, 2014 [facility] [place] [facility] [address] [facility] [id number] [place] [address]- 4872 Jul, 2014 [facility] [place] [facility] [address] [facility] [id number] [place] [address]- 4240 Jul, 2014 [facility] [place] [facility] [address] [id number] [place] [address]- 7484 Jul, 2014 [facility] [place] [facility] [address] [facility] [id number] [place] [address]- 3066 Jul, 2014 [facility] [place] [facility] [address] [facility] [id number] [place] [address]- 9213 Jul, [facility] [address] [id number] [place] [address]- 3795 Jul, [facility] [place] [facility] [address] [id number] [place] [address]- 5276 Jul, [facility] [place] [facility] [address] [id number] [place] [address]- 4203 Jun, [facility] [place] [facility] [address] [id number] [place] [address]- 9136 Jun, [facility] [place] [facility] [address] [id number] [place] [address]- 6359 Jun, [facility] [place] [facility] [address] [id number] [place] [address]- 1987 Jun, [facility] [place] [facility] [address] [id number] [place] [address]- 1335 Jun, [facility] [place] [facility] [address] [id number] [place] [address]- 1622 Jun, [facility] [place] [facility] [address] [id number] [place] [address]- 1639 Jun, [facility] [place] [facility] [address] [id number] [place] [address]- 0735 Jun, [facility] [place] [facility] [address] [id number] [place] [address]- 8233 Jun, [facility] [place] [facility] [address] [id number] [place] [address]- 8590 Jun, [facility] [place] [facility] [address] [id number] [place] [address]- 5223 Jun, [facility] [place] [facility] [address] [id number] [place] [address]- 8296 Jun, [facility] [place] [facility] [address] [id number] [place] [address]- 8946 May, [facility] [place] [facility] [address] [id number] [place] [address]- 8867 29 May, 2014 [facility] [place] [facility] [address] [id number] [place] [address]- 7754 May, [facility] [place] [facility] [address] [id number] [place] [address] May, [facility] [place] [facility] [address] [id number] [place] [address] 18 May, 2014 [facility] [place] [facility] [address] [id number] [place] [address] 16 May, 2014 [facility] [place] [facility] [address] [id number] [place] [address] 15 May, 2014 [facility] [place] [facility] [address] [id number] [place] [address] 12 May, 2014 [facility] [place] [facility] [address] [id number] [place] [address] May, [facility] [place] [facility] [address] [id number] [place] [address] May, [facility] [place] [facility] [address] [id number] [place] [address] May, [facility] [place] [facility] [address] [id number] [place] [address] May, [facility] [place] [facility] [address] [id number] [place] [address] May, [facility] [place] [facility] [address] [id number] [place] [address] May, [facility] [place] [facility] [address] [id number] [place] [address] May, [facility] [place] [facility] [address] [id number] [place] [address] May, [facility] [place] [facility] [address] [id number] [place] [address] May, [facility] [place] [facility] [address] [id number] [place] [address] May, [facility] [place] [facility] [address] [id number] [place] [address] Apr, [facility] [place] [facility] [address] [id number] [place] [address] Apr, [facility] [place] [facility] [address] [id number] [place] [address] Apr, [facility] [place] [facility] [address] [id number] [place] [address] Apr, [facility] [place] [facility] [address] [id number] [place] [address] Apr, [facility] [place] [facility] [address] [id number] [place] [address] Apr, [facility] [place] [facility] [address] [id number] [place] [address] Apr, [facility] [place] [facility] [address] [id number] [place] [address] Apr, [facility] [place] [facility] [address] [id number] [place] [address] Mar, [facility] [place] [facility] [address] [id number] [place] [address] Mar, [facility] [place] [facility] [address] [id number] [address] 14 Mar, 2014 [facility] [place] [facility] [address] [id number] [place] [address]673 30 Feb, 2014 [facility] [place] [facility] [address] [id number] [place] [address] 0605 30 Feb, 2014 [facility] [place] [facility] [address] [id number] [place] [address] 4589 26 Feb, 2014 [facility] [place] [facility] [address] [id number] [place] [address] 6975 26 Feb, 2014 [facility] [place] [facility] [address] [id number] [place] [address] 59[address] Feb, [facility] [place] [facility] [address] [id number] [place] [address] 2546 Feb, [facility] [place] [facility] [address] [id number] [place] [address]- 9206 Feb, [facility] [place] [facility] [address] [id number] [place] [address]- 5818 Feb, [facility] [place] [facility] [address] [id number] [place] [address] 4018 Jan, [facility] [place] [facility] [address] [id number] [place] [address]- 3290 Jan, [facility] [place] [facility] [address] [id number] [place] [address] 3108 Jan, [facility] [place] [facility] [address] [id number] [place] [address]- 0248 Jan, [facility] [place] [facility] [address] [id number] [place] [address]- 2117 Jan, [facility] [place] [facility] [address] [id number] [place] [address]- 8602 Jan, [facility] [place] [facility] [address] [id number] [place] [address]- 5679 Dec, [facility] [place] [facility] [address] [id number] [place] [address]- 6136 Dec, [facility] [place] [facility] [address] [id number] [place] [address]- 2791 Dec, [facility] [place] [facility] [address] [id number] [place] [address]- 9440 Dec, [facility] [place] [facility] [address] [id number] [place] [address]- 1170 Nov, [facility] [place] [facility] [address] [id number] [place] [address]- 2867 Nov, [facility] [place] [facility] [address] [id number] [place] [address]- 4774 Nov, [facility] [place] [facility] [address] [id number] [place] [address]- 1523 Nov, [facility] [place] [facility] [address] [id number] [place] [address]- 9674 Nov, [facility] [place] [facility] [address] [id number] [place] [address]- 1302 Nov, [facility] [place] [facility] [address] [id number] [place] [address]- 3676 Nov, [facility] [place] [facility] [address] [id number] [place] [address]- 6534 Nov, [facility] [place] [facility] [address] [id number], [place] [address] 3323 Nov, [facility] [place] [facility] [address] [id number], [place] [address]- 0583 Nov, [facility] [place] [facility] [address] [id number] [place] [address]- 0604 Nov, [facility] [place] [facility] [address] [id number], [place] [address]- 7602 Nov, [facility] [place] [facility] [address] [id number], [place] [address]- 9859 Nov, [facility] [place] [facility] [address] [id number], [place] [address]- 7535 Nov, [facility] [place] [facility] [address] [id number], [place] [address]- 9133 Nov, [facility] [place] [facility] [address] [id number] [address]- 3958 Nov, [facility] [place] [facility] [address] [id number] [place] [address]- 1334 Nov, [facility] [place] [facility] [address] [id number] [place] [address]- 3552 Nov, [facility] [place] [facility] [address] [id number] [place] [address]- 6728 Nov, [facility] [place] [facility] [address] [id number] [place] [address]- 3857 Nov, [facility] [place] [facility] [address] [id number] [place] [address]- 9831 Nov, [facility] [place] [facility] [address] [id number] [place] [address]- 4071 Nov, [facility] [place] [facility] [address] [id number] [place] [address]- 6645 Nov, [facility] [place] [facility] [address] [id number] [place] [address]- 5348 Nov, [facility] [place] [facility] [address] [id number] [place] [address]- 0228 Nov, [facility] [place] [facility] [address] [id number] [place] [address]- 9890 Nov, [facility] [place] [facility] [address] [id number] [place] [address]- 5385 October, [facility] [place] [facility] [address] [id number] [place] [address]- 2885 October, [facility] [place] [facility] [address] [id number] [place] [address]- 9107 October, [facility] [place] [facility] [address] [id number] [place] [address]- 0181 October, [facility] [place] [facility] [address] [id number] [place] [address]- 8452 October, [facility] [place] [facility] [address] [id number] [place] [address]- 6826 October, [facility] [place] [facility] [address] [id number] [place] [address]- 0068 October, [facility] [address] [id number] [place] [address]- 2860 October, [facility] [address] [id number] [place] [address]- 9751 October, [facility] [place] [facility] [address] [id number] [place] [address]- 3611 October, [facility] [address] [id number] [place] [address]- 3045 October, [facility] [place] [facility] [address] [id number] [place] [address]- 0678 October, [facility] [address] [id number] [place] [address]- 4101 October, [facility] [address] [id number] [place] [address]- 5112 October, [facility] [address] [id number] [place] [address]- 8230 October, [facility] [place] [facility] [address] [id number] [place] [address]- 0039 October, [facility] [place] [facility] [address] [id number] [place] [address]- 5021 October, [facility] [place] [facility] [address] [id number] [place] [address]- 8536 Sep, [facility] [place] [facility] [address] [id number] [place] [address]- 4877 Sep, [facility] [place] [facility] [address] [id number] [place] [address]- 0492 Sep, [facility] [place] [facility] [address] [id number] [place] [address]- 3409 Sep, [facility] [place] [facility] [address] [id number], [place] [address]- 1688 Sep, [facility] [place] [facility] [address] [id number] [place] [address]- 5996 Sep, [facility] [place] [facility] [address] [id number] [place] [address] Sep, [facility] [place] [facility] [address] [id number] [place] [address]- 3133 Aug, [facility] [place] [facility] [address] [id number] [place] [address]- 5000 Aug, [facility] [place] [facility] [address] [id number] [place] [address]- 8042 Aug, [facility] [place] [facility] [address] [facility] [id number] [place] [address]- 5659 Aug, [facility] [place] [facility] [address] [facility] [id number] [place] [address]- 5836 Aug, [facility] [place] [facility] [address] [facility] [id number] [place] [address]- 2629 Aug, [facility] [place] [facility] [address] [id number] [place] [address]- 0587 Jul, [facility] [place] [facility] [address] [facility] [id number] [place] [address]- 8915 Jul, [facility] [place] [facility] [address] [id number] [place] [address]- 7901 Jul, [facility] [place] [facility] [address] [facility] [id number], [place] [address] 1947 Jul, [facility] [place] [facility] [address] [id number] [place] [address]- 0104 Jul, [facility] [place] [facility] [address] [id number] [place] [address]- 2972 Jul, [facility] [place] [facility] [address] [facility] [id number], [place] [address]- 1186 Jul, [facility] [place] [facility] [address] [id number] [place] [address]- 6184 17 Jul, 2013 [facility] [place] [facility] [address] [id number] [place] [address]- 6883 Jul, [facility] [place] [facility] [address] [id number] [place] [address]- 2240 Jul, [facility] [place] [facility] [address] [id number] [place] [address]- 7512 Jun, [facility] [place] [facility] [address] [id number] [place] [address]- 8408 Jun, [facility] [place] [facility] [address] [id number] [place] [address]- 8280 Jun, [facility] [place] [facility] [address] [id number] [place] [address]- 9505 Jun, [facility] [place] [facility] [address] [id number] [place] [address]- 8371 Jun, [facility] [place] [facility] [address] [id number] [place] [address]- 6326 Jun, [facility] [place] [facility] [address] [id number], [place] [address]- 2379 Jun, [facility] [place] [facility] [address] [facility] [id number], [place] [address]- 2462 May, [facility] [place] [facility] [address] [id number], [place] [address]- 3585 May, [facility] [place] [facility] [address] [id number] [place] [address]- 4419 May, [facility] [place] [facility] [address] [id number] [place] [address]- 0017 May, [facility] [place] [facility] [address] [id number] 6654 May, [facility] [place] [facility] [address] [id number], [place] [address]- 9347 May, [facility] [place] [facility] [address] [id number] [place] [address]- 3675 Apr, [facility] [place] [facility] [address] [id number], [place] [address]- 2423 Apr, [facility] [place] [facility] [address] [facility] [id number] [place] [address]- 1924 Apr, [facility] [place] [facility] [address] [id number] [place] [address]- 5624 Apr, [facility] [place] [facility] [address] [id number] [place] [address]- 9061 15 Apr, 2013 [facility] [place] [facility] [address] [facility] [id number] [place] [address]- 2705 14 Apr, 2013 [facility] [place] [facility] [address] [facility] [id number][place] [address]- 8626 Apr, [facility] [place] [facility] [address] [facility] [id number] [place] [address]- 5340 Apr, [facility] [place] [facility] [address] [facility] [id number], [place] [address]- 9293 Apr, [facility] [place] [facility] [address] [facility] [id number], [place] [address]- 7322 Apr, [facility] [place] [facility] [address] [facility] [id number], [place] [address]- 7990 Apr, [facility] [place] [facility] [address] [facility] [id number], [place] [address]- 9684 Apr, [facility] [place] [facility] [address] [id number], [place] [address]- 2857 Apr, [facility] [place] [facility] [address] [facility] [id number], [place] [address]- 8591 Mar, [facility] [place] [facility] [address] [facility] [id number], [place] [address]- 9917 Mar, [facility] [place] [facility] [address] [id number] [place] [address]- 5354 29 Mar, 2012 [facility] [place] [facility] [address] [id number] [place] [address]- 2595 28 Mar, 2012 [facility] [place] [facility] [address] [id number] [place] [address]- 5012 28 Mar, 2012 [facility] [place] [facility] [address] [id number] [place] [address]- 1526 16 Mar, 2012 [facility] [place] [facility] [address] [id number] [place] [address]- 9524 16 Mar, 2012 [facility] [place] [facility] [address] [id number] [place] [address]- 9394 15 Mar, 2012 [facility] [place] [facility] [address] [id number] [place] [address]- 3910 15 Mar, 2012 [facility] [place] [facility] [address] [id number] [place] [address]- 8178 15 Mar, 2012 [facility] [place] [facility] [address] [id number] [place] [address]- 2311 15 Mar, 2012 [facility] [place] [facility] [address] [id number] [place] [address]- 6968 13 Mar, 2012 [facility] [place] [facility] [address] [id number] [place] [address]- 9467 10 Mar, 2012 [facility] [place] [facility] [address] [id number] [place] [address]- 6187 10 Mar, 2012 [facility] [place] [facility] [address] [id number] [place] [address]- 6042 2012 [facility] [place] [facility] [address] [id number] [place] [address]- 9649 03 Mar, 2012 [facility] [place] [facility] [address] [id number] [place] [address]- 1021 27 Feb, 2012 [facility] [place] [facility] [address] [id number] [place] [address]- 7888 26 Sep, 2012 [facility] [place] [facility] [address] [id number] [place] [address] 2540 25 Sep, 2012 [facility] [place] [facility] [address] [id number] [place] [address] 254 24 Sep, 2012 [facility] [place] [facility] [address] [id number] [place] [address]- 6155 23 Sep, 2012 [facility] [place] [facility] [address] [id number] [place] [address]- 9330 20 Sep, 2012 [facility] [place] [facility] [address] [id number] [place] [address]- 1993 18 Sep, 2012 [facility] [place] [facility] [address] [id number] [place] [address]- 9602 17 Feb, 2012 [facility] [place] [facility] [address] [id number] [place] [address]- 1802 11 Feb, 2012 [facility] [place] [facility] [address] [id number] [place] [address]- 6437 09 Sep, 2012 [facility] [place] [facility] [address] [id number] [place] [address]- 4836 09 Sep, 2012 [facility] [place] [facility] [address] [id number] [place] [address]- 1547 08 Sep, 2012 [facility] [place] [facility] [address] [id number], [place] [address]- 0810 06 Sep, 2012 [facility] [place] [facility] [address] [id number], [place] [address]- 0150 06 Sep, 2012 [facility] [place] [facility] [address] [id number] [place] [address]- 1370 04 Feb, 2012 [facility] [place] [facility] [address] [id number] [place] [address]- 4328 26 Jan, 2012 [facility] [place] [facility] [address] [id number] [place] [address]- 4223 23 Jan, 2013 [facility] [place] [facility] [address] [id number] [place] [address]- 6467 Jan, [facility] [address] [id number] [place] [address]- 8133 Jan, [facility] [place] [facility] [address] [id number] [place] [address]- 0667 Jan, [facility] [place] [facility] [address] [id number] [place] [address]- 1250 Jan, [facility] [place] [facility] [address] [id number] [place] [address]- 5783 Jan, [facility] [place] [facility] [address] [id number] [place] [address]- 0580 Jan, [facility] [place] [facility] [address] [id number] [place] [address]- 3773 Jan, [facility] [place] [facility] [address] [id number] [place] [address]- 2348 Dec, [facility] [place] [facility] [address] [id number] [place] [address]- 5622 Dec, [facility] [place] [facility] [address] [id number] [place] [address]- 8867 Dec, [facility] [place] [facility] [address] [id number] [place] [address]- 1688 Dec, [facility] [place] [facility] [address] [id number] [place] [address]- 4525 Dec, [facility] [place] [facility] [address] [id number] [place] [address]- 8878 Dec, [facility] [place] [facility] [address] [id number] [place] [address]- 4758 Dec, [facility] [place] [facility] [address] [id number] [place] [address]- 0463 Dec, [facility] [place] [facility] [address] [id number] [place] [address]- 7008 Nov, [facility] [place] [facility] [address] [id number] [place] [address]- 2286 28 Nov, 2012 [facility] [place] [facility] [address] [id number] [place] [address]- 6934 25 Nov, 2012 [facility] [place] [facility] [address] [id number] [place] [address]- 4788 24 Nov, 2012 [facility] [place] [facility] [address] [id number] [place] [address]- 8417 Nov, [facility] [place] [facility] [address] [id number] [place] [address]- 1001 18 Nov, 2012 [facility] [place] [facility] [address] [id number] [place] [address]- 8188 18 Nov, 2012 [facility] [place] [facility] [address] [id number] [place] [address]- 1388 17 Nov, 2012 [facility] [place] [facility] [address] [id number] [place] [address]- 9618 14 Nov, 2012 [facility] [place] [facility] [address] [id number] [place] [address]- 9075 Nov, [facility] [place] [facility] [address] [id number] [place] [address]- 7336 12 Nov, 2012 [facility] [place] [facility] [address] [id number] [place] [address]- 9264 08 Nov, 2012 [facility] [place] [facility] [address] [id number] [place] [address]- 0627 05 Nov, 2012 [facility] [place] [facility] [address] [id number] [place] [address]- 5675 04 Nov, 2012 [facility] [place] [facility] [address] [id number] [place] [address]- 8424 04 Nov, 2012 [facility] [place] [facility] [address] [id number] [place] [address]- 1536 03 Nov, 2012 [facility] [place] [facility] [address] [id number] [place] [address]- 7046 Nov, [facility] [address] [id number] [place] [address] Nov, [facility] [address] [id number] [place] [address] October, [facility] [address] [id number] [place] [address] October, [facility] [address] [id number] [place] [address] October, [facility] [address] [id number] [place] [address] October, [facility] [address] [id number] [place] [address] October, [facility] [address] [id number] [place] [address] October, [facility] [address] [id number] [place] [address] October, [facility] [address] [id number] [place] [address] October, [facility] [address] [id number] [place] [address] Sep, [facility] [address] [id number] [place] [address] Sep, [facility] [place] [facility] [address] [id number] [place] [address] Sep, [facility] [place] [facility] [address] [id number] [place] [address] Sep, [facility] [place] [facility] [address] [id number] [place] [address] Sep, [facility] [place] [facility] [address] [id number] [place] [address] Sep, [facility] [place] [facility] [address] [id number] [place] [address] 05 Sep, 2012 [facility] [address] [id number] [place] [address] 29 Aug, 2012 [facility] [address] [id number] [place] [address] Aug, [facility] [address] [id number] [place] [address] Aug, [facility] [address] [id number] [place] [address] Aug, [facility] [address] [id number] [place] [address] Aug, [facility] [address] [id number] [place] [address] Aug, [facility] [address] [id number] [place] [address] Aug, [facility] [address] [id number] [place] [address]268 Aug, [facility] [address] [id number] [place] [address] Jul, [facility] [address] [id number] [place] [address] 14[address] Jul, [facility] [address] [id number] [place] [address] Jun, [facility] [address] [id number] [place] [address] Jun, [facility] [address] [id number] [place] [address] Jun, [facility] [address] [id number] [place] [address]46 Jun, [facility] [address] [id number] [place] [address] Jun, [facility] [place] [facility] [address] [id number] [place] [address] May, [facility] [place] [facility] [address] [id number] [place] [address]36 May, [facility] [place] [facility] [address] [id number] [place] [address]676 May, [facility] [place] [facility] [address] [id number] [place] [address]- [address]846 May, [facility] [place] [facility] [address] [id number] [place] [address] 1449 May, [facility] [place] [facility] [address] [id number] [place] [address]20 May, [facility] [place] [facility] [address] [id number] [place] [address]- 6715 May, [facility] [place] [facility] [address] [id number] [place] [address] May, [facility] [place] [facility] [address] [id number] [place] [address]- [address]687 Apr, [facility] [place] [facility] [address] [id number] [place] [address] 8037 Apr, [facility] [place] [facility] [address] [id number] [place] [address]- [address] Apr, [facility] [place] [facility] [address] [id number] [place] [address]- 6[address] Apr, [facility] [place] [facility] [address] [id number] [place] [address]- 8900 Apr, [facility] [place] [facility] [address] [id number] [place] [address]- 6680 Apr, [facility] [place] [facility] [address] [id number] [place] [address] 16 Apr, 2012 [facility] [place] [facility] [address] [id number], [place] [address] 16 Apr, 2012 [facility] [place] [facility] [address] [id number] [place] [address] 15 Apr, 2012 [facility] [place] [facility] [address] [id number], [place] [address] 15 Apr, 2012 [facility] [place] [facility] [address] [id number] [place] [address] Apr, [facility] [place] [facility] [address] [id number] [place] [address]- [address]486 Apr, [facility] [place] [facility] [address] [id number] [place] [address], [place] [address]- [address] Apr, [facility] [place] [facility] [address] [id number], [place] [address] 8[address] Apr, [facility] [place] [facility] [address] [id number], [place] [address] Apr, [facility] [place] [facility] [address] [id number], [place] [address]- [address]240 Apr, [facility] [place] [facility] [address] [facility] [id number] [place] [address]- 3849 Apr, [facility] [place] [facility] [address] [facility] [id number], [place] [address]- [address] Apr, [facility] [place] [facility] [address] [facility] [id number], [place] [address] 44[address] Mar, [facility] [place] [facility] [address] [id number], [place] [address]- 9769 Mar, [facility] [place] [facility] [address] [id number], [place] [address]- 8853 Mar, [facility] [place] [facility] [address] [facility] [id number], [place] [address]- 74[address] Mar, [facility] [place] [facility] [address] [facility] [id number], [place] [address]- 1599 17 Mar, 2012 [facility] [place] [facility] [address] [id number] [place] [address]- 9306 15 Mar, 2012 [facility] [place] [facility] [address] [id number] [place] [address]- 8126 15 Mar, 2012 [facility] [place] [facility] [address] [id number] [place] [address] 2546 Mar, [facility] [place] [facility] [address] [id number] [place] [address]- 4296 Mar, [facility] [place] [facility] [address] [address] [id number] [place] [address] Mar, [facility] [place] [facility] [address] [id number] [place] [address] Mar, [facility] [place] [facility] [address] [id number] [place] [address] 4799 27 Feb, 2012 [facility] [place] [facility] [address] [id number] [place] [address] 5[address] 26 Feb, 2012 [facility] [place] [facility] [address] [id number] [place] [address] 9644 12 Feb, 2012 [facility] [place] [facility] [address] [id number] [place] [address] 2462 30 Jan, 2012 [facility] [place] [facility] [address] [id number] [place] [address] 2547 29 Jan, 2012 [facility] [place] [facility] [address] [id number] [place] [address] 2546 Jan, [facility] [place] [facility] [address] [id number] [place] [address] 2547 Jan, [facility] [place] [facility] [address] [id number] [place] [address] 2546 Jan, [facility] [place] [facility] [address] [id number] [place] [address] 2546 16 Jan, 2012 [facility] [place] [facility] [address] [id number] [place] [address] 2488 16 Jan, 2012 [facility] [place] [facility] [address] [id number] [place] [address] 8694 Jan, [facility] [place] [facility] [address] [id number] [place] [address] 3596 15 Jan, 2012 [facility] [place] [facility] [address] [id number] [place] [address] 6866 Jan, [facility] [place] [facility] [address] [id number] [place] [address] 3203 Dec, [facility] [place] [facility] [address] [id number] [place] [address] 7750 Dec, [facility] [place] [facility] [address] [id number] [place] [address] 9360 Dec, [facility] [place] [facility] [address] [id number] [place] [address] 3426 Dec, [facility] [place] [facility] [address] [id number] [place] [address] 24 Dec, 2011 [facility] [place] [facility] [address] [id number] [place] [address] 0305 Dec, [facility] [place] [facility] [address] [id number] [place] [address] 3897 18 Dec, 2011 [facility] [place] [facility] [address] [id number] [place] [address] 6598 17 Dec, 2011 [facility] [place] [facility] [address] [id number] [place] [address]- 1135 14 Dec, 2011 [facility] [place] [facility] [address] [id number] [place] [address] 0950 12 Dec, 2011 [facility] [place] [facility] [address] [id number] [place] [address] 3336 Dec, [facility] [place] [facility] [address] [id number] [place] [address] 9038 Dec, [facility] [place] [facility] [address] [id number] [place] [address] 6960 Dec, [facility] [place] [facility] [address] [id number] [place] [address] 7734 Nov, [facility] [place] [facility] [address] [id number] [place] [address] 6225 Nov, [facility] [place] [facility] [address] [id number] [place] [address] 0440 Nov, [facility] [place] [facility] [address] [id number] [place] [address] 7336 Nov, [facility] [place] [facility] [address] [id number] [place] [address] 7915 Nov, [facility] [place] [facility] [address] [id number] [place] [address] 6882 Nov, [facility] [address] [id number] [place] [address] 2460 October, [facility] [address] [id number] [place] [address] 4440 October, [facility] [place] [facility] [address] [id number] [place] [address] 5358 October, [facility] [address] [id number] [place] [address] 5911 October, [facility] [place] [facility] [address] [id number] [place] [address] 8183 October, [facility] [place] [facility] [address] [id number] [place] [address] 9745 October, [facility] [place] [facility] [address] [id number] [place] [address]- 1744 October, [facility] [place] [facility] [address] [id number] [place] [address] 9164 Sep, [facility] [place] [facility] [address] [id number] [place] [address] 3124 Sep, [facility] [place] [facility] [address] [id number] [place] [address] 6710 Sep, [facility] [address] [id number] [place] [address] 5415 Sep, [facility] [address] [id number] [place] [address] 1992 Sep, [facility] [address] [id number] [place] [address] 2379 20 Sep, 2011 [facility] [address] [id number] [place] [address] 2025 16 Sep, 2011 [facility] [address] [id number] [place] [address] 9190 Sep, [facility] [address] [id number] [place] [address] 7210 Sep, [facility] [address] [id number] [place] [address] 8571 Sep, [facility] [address] [id number] [place] [address] 5998 Sep, [facility] [address] [id number] [place] [address]- 2387 Sep, [facility] [address] [id number] [place] [address] 4925 15 Aug, 2011 [facility] [place] [facility] [address] [id number] [place] [address]- 7627 Aug, [facility] [place] [facility] [address] [id number] [place] [address]- 4033 Aug, [facility] [place] [facility] [address] [id number] [place] [address]- 8792 Aug, [facility] [place] [facility] [address] [id number] [place] [address] 6178 Jul, [facility] [place] [facility] [address] [id number] [place] [address] 2546 Jul, [facility] [address] [id number] [place] [address] 2546 Jul, [facility] [place] [facility] [address] [id number] [place] [address] 2546 Jul, [facility] [place] [facility] [address] [id number] [place] [address]- 3046 Jul, [facility] [place] [facility] [address] [id number] [place] [address] 2546 Jul, [facility] [address] [id number] [place] [address] 1966 Jul, [facility] [place] [facility] [address] [id number] [place] [address] 2546 Jul, [facility] [address] [id number] [place] [address]- 5806 Jul, [facility] [address] [id number] [place] [address]- 9847 Jul, [facility] [place] [facility] [address] [id number] [place] [address]- 8386 Jul, [facility] [address] [id number] [place] [address]- 3930 Jul, [facility] [place] [facility] [address] [id number] [place] [address] 2546 Jul, [facility] [place] [facility] [address] [id number] [place] [address] 2546 Jun, [facility] [place] [facility] [address] [id number] [place] [address] 2546 Jun, [facility] [place] [facility] [address] [id number] [place] [address] 2546 Jun, [facility] [place] [facility] [address] [id number] [place] [address]- 9779 Jun, [facility] [address] [id number] [place] [address]- 6913 Jun, [facility] [place] [facility] [address] [id number] [place] [address]- 9795 Jun, [facility] [place] [facility] [address] [id number] [place] [address]- 6541 Jun, [facility] [place] [facility] [address] [id number] [place] [address]- 5075 Jun, [facility] [place] [facility] [address] [id number] [place] [address]- 4214 Jun, [facility] [place] [facility] [address] [id number] [place] [address]- 5679 Jun, [facility] [place] [facility] [address] [id number] [place] [address]- 4427 May, [facility] [place] [facility] [address] [id number] [place] [address]- 2496 May, [facility] [place] [facility] [address] [id number] [place] [address]- 1816 May, [facility] [place] [facility] [address] [id number] [place] [address]- 2777 May, [facility] [place] [facility] [address] [id number] [place] [address]- 3104 Apr, [facility] [place] [facility] [address] [id number] [address]- 0831 Apr, [facility] [place] [facility] [address] [id number] [place] [address]- 3624 Apr, [facility] [place] [facility] [address] [id number] [place] [address]- 1370 Apr, [facility] [place] [facility] [address] [id number] [place] [address]- 3597 Apr, [facility] [place] [facility] [address] [id number] [place] [address]- 6842 31 Mar, 2011 [facility] [address] [id number] [place] [address]- 0066 24 Mar, 2011 [facility] [place] [facility] [address] [id number] [place] [address]- 0506 18 Mar, 2011 [facility] [place] [facility] [address] [id number] [place] [address]- 7746 18 Mar, 2011 [facility] [place] [facility] [address] [id number] [place] [address]- 0091 28 May, 2010 [facility] [place] [facility] [address] [id number] [place] [address]- 3760 22 May, 2010 [facility] [place] [facility] [address] [id number] [place] [address]- 2809 17 May, 2010 [facility] [place] [facility] [address] [id number] [place] [address]- 7440 17 May, 2010 [facility] [place] [facility] [address] [id number] [place] [address]- 7327 15 May, 2010 [facility] [place] [facility] [address] [id number] [place] [address]- 5172 09 May, 2010 [facility] [place] [facility] [address] [facility] [id number] [place] [address]- 1624 08 May, 2010 [facility] [place] [facility] [address] [id number] [place] [address]- 7890 May, [facility] [place] [facility] [address] [id number] [place] [address]- 2547 29 Apr, 2010 [facility] [place] [facility] [address] [id number] [place] [address]- 2116 16 Apr, 2010 [facility] [place] [facility] [address] [facility] [id number] [place] 6396 16 Apr, 2010 [facility] [place] [facility] [address] [facility] [id number] [place] 7435 15 Apr, 2010 [facility] [place] [facility] [address] [place] [address]- [address] 08 Apr, 2010 [facility] [address] [place] [address]- 6906 Apr, [facility] [address] [place] [address]- 2546 Apr, [facility] [id number] [place] [address]- 5446 Apr, [facility] [address], [place] [address]- 0146 Mar, [facility] [id number] [place] [address] 20[address]- 7876 Jan, [facility] [id number] [place] [address] 106[address]- 2812 Nov, [facility] [id number] [place] [address] 79[address]- 1326 October, [facility] [id number] [place] [address]- 5233 Sep, [facility] [id number] [place] [address] 8[address]- 7905 Aug, [facility] [address] [place] [address]- 6145 Jul, [facility] [address], [place] [address]- 0866 Jun, IMMUNIZATIONS No Known Immunizations SOCIAL HISTORY Never Assessed REASON FOR VISIT Refill request PLAN OF CARE VITAL SIGNS MEDICATIONS Unknown Medications RESULTS No Results PROCEDURES No Known procedures INSTRUCTIONS MEDICATIONS ADMINISTERED No Known Medications MEDICAL (GENERAL) HISTORY Type Description Date Medical History 11/2009 cardiovascular disorder-- lexiscan normal done by Dr Alba Medical History respiratory disorder-- PFT's 08/18/09: "possible small airway disease, otherwise normal." Will trial on Albuterol Medical History gastrointestinal disorder-- colon cancer screening 08/2009: hemoccult cards negative Medical History hyperlipidemia Medical History arthritis-- MRI of the L-spine 11/2009- degenerative disc disease, most pronounced @ L2-3; no evidence of spinal stenosis or nerve root encroachment Medical History evaluated by Thad Fermin 10/2009- dx of right sacroiliac joint dysfunction w/ a chronic lumbosacral sprain and core deconditioning. PT ordered Medical History Chronic Migraine with/without aura Dr. Vo [facility] Manages Medical History psychiatric disorders- depression, panic disorder, dependent personality disorder. Being seen by [facility] Medical History chonic pain since 1994 when pt fell and pulled tendons in back , hip, and right knee Medical History sleep study- negative for apnea, positive for primary snoring disorder Medical History Peptic ulcer Disease Medical History COPD-Small Airway Disease sees Dr. Bustillo Medical History Arthritis Medical History Renal Insuficiency Chronic Stage I Medical History Compression fracture Surgical History genito-urinary tract surgery Surgical History [...]
--- OUTSIDE RECORDS SUMMARY | 2017-10-22 17:56 | XMS REPORT ---
Author HASEEB Valverde [facility] eClinicalWorks Address Unknown Phone Unavailable Care Team Providers Care Engine Head Repairer Name Role Phone HASEEB COOK Unavailable Allergies, Adverse Reactions, Alerts Substance Reaction Event Type N.K.D.A. Info Not Available Non Drug Allergy Problems Problem Type Condition Code Onset Dates [...] fracture T14.8 Active Problem Arthritis M19.90 Active Assessment Chronic renal insufficiency, stage 1 N18.1 Active Assessment Chronic pain syndrome G89.4 Active Assessment Left anterior shoulder pain M25.512 Active Medications Medication Code System Code Instructions Start Date End Date Status Dosage Imitrex [facility] [address]-69 50 mg Orally Twice a day prn 1 tablet as needed Albuterol Sulfate [facility] [address]-11 (2.5 MG/3ML) 0.083% Inhalation 2 times a day 3 ml Potassium Chloride [facility] [address]-08 10 mEq Once a day December 11, 2012 started by Aayush Lexapro [facility] [address]-00 20 mg Jun 08, 2014 1 tablet by Oral route 1 time per day takes 1 1/2 tabs daily Nexium [facility] [address]-57 40MG Orally Once a day [address] [facility] [address]-55 100 mg October 09, 2013 take 1 tablet (50 mg ) by oral route 2 times per day Lyrica [facility] [address]-86 100 MG Orally 2 times a day 1 capsule Hydrocodone-Acetaminophen [facility] [address]-47 5-325 MG Orally 2 times a day prn 1 tablet as needed Lipitor [facility] [address]-13 20 mg Orally Once a day Jan 18, 2012 1 tablet by Oral route 1 time per day Ventolin HFA [facility] [address]-53 90 mcg/actuation Inhalation every 4 hrs prn November 06, [address] [facility] [address]-92 1 mg December 24, 2013 0.5 tablet by Oral route 2 times per day Baclofen [facility] [address]-92 10 mg Orally 2 times a day PRN 1 tablet with food or milk Promethazine HCl [facility] 44243646058 25 MG Orally every 12 hrs prn nausea 1 tablet as needed Seroquel XR [facility] [address]-64 200 MG Orally December 24, 2013 200 Mg by Oral route 1 time per day once daily at night (300 mg) [id number] Ethyl Esters [facility] 92128147213 1GM TAKE ONE CAPSULE BY MOUTH TWICE DAILY Procedures Procedure Coding System Code Date [facility] VISIT ESTABLISHED PATIENT CPT-4 G0467 Mar 28, 2016 Office Visit, Est Pt., Level 4 CPT-4 77676 Mar 28, 2016 X-RAY EXAM OF SHOULDER CPT-4 01209 Mar 28, 2016 Vital Signs Date/Time: Mar 28, 2016 Cardiac Monitoring Heart Rate 100 bpm Weight 164 lbs Height 64 in BMI 28.15 Index Head Circumference 16 cm Blood Pressure Diastolic 78 mmHg Blood Pressure Systolic 110 mmHg Results No Known Results Summary Purpose eClinicalWorks Submission
--- OUTSIDE RECORDS SUMMARY | 2017-10-22 17:57 | XMS REPORT ---
Author Author HASEEB COOK [facility] Address [address] [place] [address] Care Team Providers Care Scalder Name Role Phone HASEEB COOK Unavailable PROBLEMS Type Condition ICD9-CM Code YHV33-LC Code Onset Dates Condition Status SNOMED Code Problem Mixed hyperlipidemia E78.2 Active 158454389 Problem Chronic renal insufficiency, stage 1 N18.1 Active 136447191 Problem Gastroesophageal reflux disease without esophagitis K21.9 Active 860353888 Problem Cervical pain M54.2 Active 88817848 Problem 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 84145881 Problem Migraine without aura and with status migrainosus, not intractable G43.001 Active 462148410 Problem Arthritis M19.90 Active 3250036 Problem Chronic pain syndrome G89.4 Active 924050229 Problem Back pain at L4-L5 level M54.5 Active 221213665 Problem Compression fracture T14.8 Active 231556468 ALLERGIES Unknown Allergies SOCIAL HISTORY No smoking Hx information available PLAN OF CARE VITAL SIGNS MEDICATIONS Unknown Medications RESULTS No Results PROCEDURES No Known procedures IMMUNIZATIONS No Known Immunizations
--- OUTSIDE RECORDS SUMMARY | 2017-10-22 17:57 | XMS REPORT ---
Author HASEEB Valverde [facility] eClinicalWorks Address Unknown Phone Unavailable Care Team Providers Care Track Laying Machine Operator Name Role Phone HASEEB COOK Unavailable Allergies, Adverse Reactions, Alerts Substance Reaction Event Type N.K.D.A. Info Not Available Non Drug Allergy Problems Problem Type Condition Code Onset Dates Condition Status Assessment Chronic renal insufficiency, stage 1 N18.1 Active Assessment Encounter for immunization Z23 Active Assessment Chronic pain syndrome G89.4 Active Assessment Mixed hyperlipidemia E78.2 Active Assessment Gastroesophageal reflux disease without esophagitis K21.9 Active Problem Chronic pain syndrome G89.4 Active Problem Chronic renal insufficiency, stage 1 N18.1 Active Problem Arthritis M19.90 Active Problem Cervical pain M54.2 Active Assessment Arthritis M19.90 Active Problem Gastroesophageal reflux disease without esophagitis K21.9 Active Problem Mixed hyperlipidemia E78.2 Active Medications Medication Code System Code Instructions Start Date End Date Status Dosage Topamax [facility] [address]-33 100 mg October 09, 2013 take 1 tablet (50 mg ) by oral route 2 times per day Seroquel XR [facility] [address]-53 200 MG Orally December 24, 2013 200 Mg by Oral route 1 time per day once daily at night (300 mg) Baclofen [facility] [address]-37 10 MG Orally 2 times a day PRN 1 tablet with food or milk T.E.D. Knee Length/M-Long [facility] 8080-471956 November 12, 2014 as directed Ventolin HFA [facility] [address]-22 90 mcg/actuation November 06, 2012 inhale 2 puff by Inhalation route as needed every 4-6 hours PRN for cough or wheeze Nexium [facility] 45217528580 40MG TAKE ONE CAPSULE BY MOUTH TWICE DAILY Flonase [facility] [address]-43 50 mcg/actuation August 06, 2014 1 sprays by Nasal route 2 times per day in each nostril Lipitor [facility] [address]-41 20 mg 1 TAB orally once a day Jan 18, 2012 1 tablet by Oral route 1 time per day Carafate [facility] 38703781375 1 GM 3 times a day 1 tablet on an empty stomach before meals Lexapro [facility] [address]-37 20 mg Jun 08, 2014 1 tablet by Oral route 1 time per day takes 1 1/2 tabs daily Albuterol Sulfate [facility] 59296716060 (2.5 MG/3ML) 0.083% USE ONE VIAL IN NEBULIZER TWICE DAILY NEEDED FOR COUGH AND WHEEZE Promethazine HCl [facility] 62940956111 25 MG Orally every 12 hrs prn nausea 1 tablet as needed Fish Oil [facility] [address]-84 1000 MG Orally Twice a day 1 capsule Lyrica [facility] 05731301940 75MG TAKE ONE CAPSULE BY MOUTH TWICE DAILY FOR NEUROPATHY/ANXIETY AND PAIN Potassium Chloride [facility] [address]-47 10 mEq Once a day December 11, 2012 started by Aayush Hydrocodone-Acetaminophen [facility] [address]-58 5-325 MG Orally 3 times a day prn- must last 30 days. 1 tablet as needed Procedures Procedure Coding System Code Date VENIPUNCT, ROUTINE* CPT-4 16703 Mar 18, 2015 FLUARIX QUAD (3 & UP)-GSK-2014 CPT-4 15711 Mar 18, 2015 [facility] NOBLL Mar 18, 2015 [facility] VISIT ESTABLISHED PATIENT CPT-4 G0467 Mar 18, 2015 SINGLE IMMUNIZATION ADMIN CPT-4 46370 Mar 18, 2015 Office Visit, Est Pt., Level 4 CPT-4 65347 Mar 18, 2015 Vital Signs Date/Time: Mar 18, 2015 Temperature 99.6 F Weight 172.4 lbs Height 64 in BMI 29.59 Index Blood Pressure Diastolic 72 mmHg Blood Pressure Systolic 110 mmHg Cardiac Monitoring Heart Rate 80 bpm Results Name Result Date Reference Range Unit Abnormality Flag ROUTINE VENIPUNCTURE CMP Immunizations Vaccine Administration Date FLUARIX QUAD (3 & UP)-GSK-2014Mar 18, 2015 Summary Purpose eClinicalWorks Submission
--- OUTSIDE RECORDS SUMMARY | 2017-10-22 17:58 | XMS REPORT ---
Author Author HASEEB COOK Organization [facility] Address [address] [place] [address] Care Team Providers Care Industrial Maintenance Technician Name Role Phone HASEEB COOK Unavailable PROBLEMS Type Condition ICD9-CM Code RRR89-KR Code Onset Dates Condition Status SNOMED Code Problem Gastroesophageal reflux disease without esophagitis K21.9 Active 903172349 Problem Chronic renal insufficiency, stage 1 N18.1 Active 373945755 Problem Cervical pain M54.2 Active 23178470 Problem Chronic fatigue R53.82 Active 26670294 Problem Psychiatric illness F99 Active 23582692 Problem Compression fracture T14.8 Active 268547546 Problem Back pain at L4-L5 level M54.5 Active 088505529 Problem 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 45756224 Problem Migraine without aura and with status migrainosus, not intractable G43.001 Active 245772432 Problem Chronic obstructive pulmonary disease (COPD) suggested by initial evaluation J44.9 Active 25001227 Problem Arthritis M19.90 Active 3976239 Problem Chronic pain syndrome G89.4 Active 484638598 Problem Infarction of distal end of right femur M87.051 Active 404258339 Problem Mixed hyperlipidemia E78.2 Active 991901286 ALLERGIES No Known Allergies ENCOUNTERS Encounter Location Date Diagnosis [facility] [id number], [place] [address] Sep, Arthritis M19.90 [facility] [address] [facility] [id number] [address] Sep, [facility] [address], [place] [address] Aug, Chronic pain syndrome G89.4 ; Chronic obstructive pulmonary disease (COPD) suggested by initial evaluation J44.9 ; Arthritis M19.90 ; Migraine without aura and with status migrainosus, not intractable G43.001 ; Gastroesophageal reflux disease without esophagitis K21.9 ; Mixed hyperlipidemia E78.2 ; Chronic renal insufficiency, stage 1 N18.1 and Chronic fatigue R53.82 [id number] [place] [address] 88627- 8968 Aug, Chronic pain syndrome G89.4 [facility] [id number] [place] [address] 69458- 1333 Aug, [facility] [id number] [place] [address] 82083- 9383 Aug, Arthritis M19.90 [facility] [id number] [place] [address] 30135- 9955 Aug, [facility] [id number] [place] [address] 79069- 2597 Jul, Chronic pain syndrome G89.4 ; Chronic obstructive pulmonary disease (COPD) suggested by initial evaluation J44.9 ; Arthritis M19.90 ; Migraine without aura and with status migrainosus, not intractable G43.001 ; Gastroesophageal reflux disease without esophagitis K21.9 ; Mixed hyperlipidemia E78.2 ; Chronic renal insufficiency, stage 1 N18.1 and Closed compression fracture of L4 lumbar vertebra with delayed healing, subsequent encounter S32.040G [id number] [place] [address] 24665- 9383 Jul, Chronic pain syndrome G89.4 [facility] [id number] [place] [address] 32152- 1807 Jul, [facility] [id number] [place] [address] 00261- 2280 Jul, [facility] [id number] [place] [address] 14004- 3368 Jul, Arthritis M19.90 [facility] [id number] [place] [address] 02437- 2144 Jul, Infarction of distal end of right femur M87.051 [facility] [address] [address], [place] [address] Jun, Chronic pain syndrome G89.4 ; Chronic [...] M25.571 and Pain, joint, knee, right M25.561 [facility] [id number], [place] [address] Jun, Arthritis M19.90 [facility] [id number] [place] [address] 00514- 6269 May, [facility] [id number] [place] [address] 17430- 0965 May, Chronic pain syndrome G89.4 and Migraine without aura and with status migrainosus, not intractable G43.001 [address] [id number] [place] [address] 44661- 4015 May, Arthritis M19.90 [facility] [id number] [place] [address] 48577- 3122 May, Chronic obstructive pulmonary disease (COPD) suggested by initial evaluation J44.9 [facility] [id number] [place] [address] 85114- 6740 Apr, [address] [id number] [place] [address] 84959- 7577 Apr, Arthritis M19.90 [facility] [id number] [place] [address] 83985- 8439 Mar, Arthritis M19.90 [facility] [id number] [place] [address] 34715- 4793 30 Feb, 2017 [facility] [id number] [place] [address] 74138- 3944 Feb, [facility] [id number] [place] [address] 54524- 1461 Feb, Chronic pain syndrome G89.4 [facility] [id number] [place] [address] 49049- 1722 13 Feb, 2017 Migraine without aura and with status migrainosus, not intractable G43.001 ; Arthritis M19.90 ; Gastroesophageal reflux disease without esophagitis K21.9 ; Chronic pain syndrome G89.4 ; Chronic renal insufficiency, stage 1 N18.1 ; Mixed hyperlipidemia E78.2 ; Chronic obstructive pulmonary disease (COPD) suggested by initial evaluation J44.9 ; Skin infection L08.9 and Encounter for immunization Z23 [facility] [id number] [place] [address] 38632- 2405 Jan, Migraine without aura and with status migrainosus, not intractable G43.001 [facility] [id number] [place] [address] 41666- 7926 Jan, Migraine without aura and with status migrainosus, not intractable G43.001 [facility] [id number] [place] [address] 71796- 2124 Jan, Arthritis M19.90 [facility] [id number] [place] [address] 32216- 1970 Jan, [facility] [id number] [place] [address] 26085- 3780 Dec, Arthritis M19.90 [facility] [id number] [place] [address] 93496- 5765 Nov, Gastroesophageal reflux disease without esophagitis K21.9 [facility] [id number] [place] [address] 57108- 8615 Nov, Arthritis M19.90 [facility] [id number] [place] [address] 64136- 6428 October, Chronic pain syndrome G89.4 ; Arthritis M19.90 ; Chronic renal insufficiency, stage 1 N18.1 ; Gastroesophageal reflux disease without esophagitis K21.9 ; Cervical pain M54.2 and Chronic obstructive pulmonary disease (COPD) suggested by initial evaluation J44.9 [facility] [id number] [place] [address] 41906- 6365 October, [facility] [id number] [place] [address] 16186- 7505 October, Chronic obstructive pulmonary disease (COPD) suggested by initial evaluation J44.9 [facility] [id number] [place] [address] 37635- 5679 October, 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 [facility] [id number] [place] [address] 75908- 5875 October, Mixed hyperlipidemia E78.2 ; Migraine without aura and with status migrainosus, not intractable G43.001 and 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 [facility] [id number] [place] [address] 26985- 3288 October, [facility] [id number] [place] [address] 41116- 2397 October, [facility] [id number] [place] [address] 10755- 6235 October, [facility] [id number] [place] [address] 33771- 0599 October, [facility] [id number] [place] [address] 26796- 0171 October, [facility] [id number] [place] [address] 38738- 2455 Sep, Chronic pain syndrome G89.4 [facility] [id number] [place] [address] 93555- 1363 Sep, Chronic pain syndrome G89.4 [facility] [id number] [place] [address] 68365- 7882 Sep, [facility] [address], [place] [address]- 4648 Sep, [facility] [id number] [place] [address] 58083- 3764 Sep, Chronic pain syndrome G89.4 [facility] [id number] [place] [address] 14923- 0439 Aug, Chronic pain syndrome G89.4 [facility] [id number] [place] [address] 81707- 4789 Aug, Chronic pain syndrome G89.4 and Mixed hyperlipidemia E78.2 [facility] [id number] [place] [address] 68948- 7633 Jul, [facility] [id number] [place] [address] 18314- 9001 Jun, [facility] [id number] [place] [address] 04772- 6146 Jun, Chronic pain syndrome G89.4 [facility] [id number] [place] [address] 68788- 4977 Jun, [facility] [id number] [place] [address] 16907- 2031 May, Fever chills R50.9 ; Chronic pain syndrome G89.4 ; Chronic renal insufficiency, stage 1 N18.1 ; Influenza B J10.1 ; Upper respiratory tract infection, unspecified type J06.9 and Migraine without aura and with status migrainosus, not intractable G43.001 [facility] [address], [place] [address]- 4684 May, [facility] [id number] [place] [address] 71730- 2546 Apr, [facility] [id number] [place] [address] 36009- 3530 Apr, [facility] [id number] [place] [address] 10402- 8270 Apr, [facility] [id number] [place] [address] 86075- 1187 Mar, [facility] [id number] [place] [address] 68341- 6372 Mar, [facility] [id number] [place] [address] 94525- 6670 Mar, Left anterior shoulder pain M25.512 [facility] [id number] [place] [address] 66537- 0819 Mar, Left anterior shoulder pain M25.512 ; Chronic pain syndrome G89.4 and Chronic renal insufficiency, stage 1 N18.1 [facility] [id number] [place] [address] 78609- 0944 Mar, [facility] [id number] [place] [address] 04420- 0683 Feb, [facility] [id number] [place] [address] 83302- 5797 Feb, [facility] [id number] [place] [address] 31854- 4650 Feb, [facility] [id number] [place] [address] 80587- 3684 Feb, Encounter for immunization Z23 [facility] [id number] [place] [address] 74650- 2712 Feb, [facility] [id number] [place] [address] 46772- 0881 Feb, [facility] [id number] [place] [address] 94904- 0751 Feb, Chronic pain syndrome G89.4 ; Chronic renal insufficiency, stage 1 N18.1 ; Migraine without aura and with status migrainosus, not intractable G43.001 ; Gastroesophageal reflux disease without esophagitis K21.9 ; Mixed hyperlipidemia E78.2 and 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 [address] [facility] [id number] [place] [address] 81995- 9789 Jan, [facility] [id number] [place] [address] 28426- 4982 Nov, Chronic pain syndrome G89.4 ; Chronic renal insufficiency, stage 1 N18.1 ; Migraine without aura and with status migrainosus, not intractable G43.001 and Gastroesophageal reflux disease without esophagitis K21.9 [facility] [id number] [place] [address] 63489- 6478 October, [facility] [id number] [place] [address] 99800- 8594 October, [facility] [id number] [place] [address] 79605- 5338 Sep, [facility] [id number] [place] [address] 48130- 1584 Sep, Back pain at L4-L5 level M54.5 and Compression fracture T14.8 [facility] [id number] [place] [address] 32402- 4083 Aug, [facility] [id number] [place] [address] 14475- 4088 Aug, [facility] [id number] [place] [address] 37404- 7279 Aug, Back pain at L4-L5 level M54.5 and Compression fracture T14.8 [facility] [id number] [place] [address] 05113- 7483 Aug, Rib pain on right side R07.81 ; Right hip pain M25.551 and Lumbar pain M54.5 [facility] [id number] [place] [address] 69390- 0002 Jul, [facility] [id number] [place] [address] 10607- 6372 Jul, [facility] [address], [place] [address]- 5486 Jul, Chronic pain syndrome G89.4 ; Chronic renal insufficiency, stage 1 N18.1 ; Mixed hyperlipidemia E78.2 and Scleritis, left H15.002 [facility] [address], [place] [address]- 5096 Jun, [facility] [id number] [place] [address] 18819- 1769 May, [facility] [id number] [place] [address] 60070- 1414 Apr, [facility] [id number] [place] [address] 98088- 8819 Apr, [facility] [id number] [place] [address] 93025- 1323 Apr, [facility] [id number] [place] [address] 58067- 2301 Mar, [facility] [id number] [place] [address] 84979- 1772 Mar, Chronic renal insufficiency, stage 1 N18.1 [facility] [id number] [place] [address] 15207- 1855 Mar, Arthritis M19.90 ; Encounter for immunization Z23 ; Chronic pain syndrome G89.4 ; Chronic renal insufficiency, stage 1 N18.1 ; Gastroesophageal reflux disease without esophagitis K21.9 and Mixed hyperlipidemia E78.2 [facility] [address], [place] [address]- 5786 Mar, [facility] [id number] [place] [address] 37568- 0919 Feb, [facility] [address], [place] [address]- 8467 Feb, [facility] [address], [place] [address]- 4456 Dec, [facility] [address], [place] [address]- 5603 Dec, Unspecified myalgia and myositis 729.1 ; Sacroiliitis, not elsewhere classified 720.2 ; Headache 784.0 ; Renal insufficiency 593.9 ; Vitamin D deficiency 268.9 ; Fatigue 780.79 and Edema 782.3 [facility] [id number] [place] [address] 08937- 8730 Dec, [facility] [id number] [place] [address] 13062- 3556 Dec, [facility] [id number] [place] [address] 52591- 9255 Dec, [facility] [id number] [place] [address] 12436- 1591 Dec, [facility] [id number] [place] [address] 60545- 0476 Dec, [facility] [id number] [place] [address] 99186- 7426 Nov, [facility] [id number] [place] [address] 98274- 3567 Nov, [facility] [address], [place] [address]- 1438 Nov, [facility] [id number] [place] [address] 94425- 1325 Nov, Unspecified myalgia and myositis 729.1 ; Nausea alone 787.02 ; Sacroiliitis, not elsewhere classified 720.2 ; Headache 784.0 and Renal insufficiency 593.9 [facility] [id number] [place] [address] 24198- 8654 October, [facility] [id number], [place] [address]- 6824 October, [facility] [id number] [place] [address], [place] [address]- 5834 14 Sep, 2014 [facility] [place] [facility] [address] [id number] [place] [address]- 5297 13 Sep, 2014 [facility] [place] [facility] [address] [id number] [place] [address]- 7506 30 Aug, 2014 [facility] [place] [facility] [address] [id number] [place] [address]- 3926 30 Aug, 2014 [facility] [place] [facility] [address] [id number] [place] [address]- 5803 20 Aug, 2014 [facility] [place] [facility] [address] [id number] [place] [address]- 4430 20 Aug, 2014 [facility] [place] [facility] [address] [id number] [place] [address]- 4807 20 Aug, 2014 [facility] [place] [facility] [address] [id number] [place] [address]- 4535 20 Aug, 2014 [facility] [place] [facility] [address] [id number] [place] [address]- 6200 13 Aug, 2014 [facility] [place] [facility] [address] [id number] [place] [address]- 7295 13 Aug, 2014 [facility] [place] [facility] [address] [id number] [place] [address]- 4245 13 Aug, 2014 [facility] [place] [facility] [address] [id number] [place] [address]- 2740 13 Aug, 2014 [facility] [place] [facility] [address] [id number] [place] [address]- 6193 11 Aug, 2014 [facility] [place] [facility] [address] [id number] [place] [address]- 2281 11 Aug, 2014 [facility] [place] [facility] [address] [id number] [place] [address]- 5220 05 Aug, 2014 [facility] [place] [facility] [address] [id number] [place] [address]- 9741 05 Aug, 2014 [facility] [place] [facility] [address] [id number] [place] [address]- 3234 Aug, 2014 [facility] [place] [facility] [address] [id number] [place] [address]- 7142 Aug, 2014 [facility] [place] [facility] [address] [id number] [place] [address]- 1913 Jul, 2014 [facility] [place] [facility] [address] [facility] [id number] [place] [address]- 4053 Jul, 2014 [facility] [place] [facility] [address] [id number] [place] [address]- 2753 Jul, 2014 [facility] [place] [facility] [address] [id number] [place] [address]- 8614 Jul, 2014 [facility] [place] [facility] [address] [facility] [id number] [place] [address]- 4913 Jul, 2014 [facility] [place] [facility] [address] [facility] [id number] [place] [address]- 8593 Jul, 2014 [facility] [place] [facility] [address] [facility] [id number] [place] [address]- 9560 Jul, 2014 [facility] [place] [facility] [address] [facility] [id number] [place] [address]- 4325 Jul, 2014 [facility] [place] [facility] [address] [facility] [id number] [place] [address]- 5045 Jul, 2014 [facility] [place] [facility] [address] [facility] [id number] [address]- 1692 Jul, 2014 [facility] [place] [facility] [address] [facility] [id number] [place] [address]- 6863 Jul, 2014 [facility] [place] [facility] [address] [facility] [id number] [place] [address]- 2137 Jul, 2014 [facility] [place] [facility] [address] [facility] [id number] [place] [address]- 5510 Jul, 2014 [facility] [place] [facility] [address] [facility] [id number] [place] [address] Jul, [facility] [place] [facility] [address] [id number] [place] [address] Jul, [facility] [place] [facility] [address] [id number] [place] [address] Jul, [facility] [place] [facility] [address] [id number] [place] [address] Jun, [facility] [place] [facility] [address] [id number] [place] [address] Jun, [facility] [place] [facility] [address] [id number] [place] [address] Jun, [facility] [place] [facility] [address] [id number] [place] [address] Jun, [facility] [place] [facility] [address] [id number] [place] [address] Jun, [facility] [place] [facility] [address] [id number] [place] [address] Jun, [facility] [place] [facility] [address] [id number] [place] [address] Jun, [facility] [place] [facility] [address] [id number] [place] [address] Jun, [facility] [place] [facility] [address] [id number] [place] [address]681 Jun, [facility] [place] [facility] [address] [id number] [place] [address] Jun, [facility] [place] [facility] [address] [id number] [place] [address] Jun, [facility] [place] [facility] [address] [id number] [place] [address] Jun, [facility] [place] [facility] [address] [id number] [place] [address] May, [facility] [place] [facility] [address] [id number] [place] [address] 29 May, 2014 [facility] [place] [facility] [address] [id number] [place] [address] May, [facility] [place] [facility] [address] [id number] [place] [address] May, [facility] [place] [facility] [address] [id number] [place] [address] 18 May, 2014 [facility] [place] [facility] [address] [id number] [place] [address] 16 May, 2014 [facility] [place] [facility] [address] [id number] [place] [address]- [address] 15 May, 2014 [facility] [place] [facility] [address] [id number] [place] [address] 12 May, 2014 [facility] [place] [facility] [address] [id number] [place] [address]- [address] May, [facility] [place] [facility] [address] [id number] [place] [address] 39[address] May, [facility] [place] [facility] [address] [id number] [place] [address] May, [facility] [place] [facility] [address] [id number] [place] [address] May, [facility] [place] [facility] [address] [id number] [place] [address] May, [facility] [place] [facility] [address] [id number] [place] [address] May, [facility] [place] [facility] [address] [id number] [place] [address] May, [facility] [place] [facility] [address] [id number] [place] [address] May, [facility] [place] [facility] [address] [id number] [place] [address]676 May, [facility] [place] [facility] [address] [id number] [place] [address] May, [facility] [place] [facility] [address] [id number] [place] [address] Apr, [facility] [place] [facility] [address] [id number] [place] [address] Apr, [facility] [place] [facility] [address] [id number] [place] [address] Apr, [facility] [place] [facility] [address] [id number] [place] [address] Apr, [facility] [place] [facility] [address] [address] [id number] [place] [address] Apr, [facility] [place] [facility] [address] [id number] [place] [address] 96[address] Apr, [facility] [place] [facility] [address] [id number] [place] [address]- 1192 Apr, [facility] [place] [facility] [address] [id number] [place] [address] 48[address] Apr, [facility] [place] [facility] [address] [facility] [id number] [place] [address] 8040 Mar, [facility] [place] [facility] [address] [id number] [place] [address] 1520 14 Mar, 2014 [facility] [place] [facility] [address] [id number] [place] [address]- 1065 14 Mar, 2014 [facility] [place] [facility] [address] [id number] [place] [address]- 7958 30 Feb, 2014 [facility] [place] [facility] [address] [id number] [place] [address]- 9900 30 Feb, 2014 [facility] [place] [facility] [address] [id number] [place] [address] 1079 26 Feb, 2014 [facility] [place] [facility] [address] [id number] [place] [address] 2489 Feb, [facility] [place] [facility] [address] [id number] [place] [address] 2887 Feb, [facility] [place] [facility] [address] [id number] [place] [address] 3353 Feb, [facility] [place] [facility] [address] [id number] [place] [address]- 7599 Feb, [facility] [place] [facility] [address] [id number] [place] [address]- 7365 Feb, [facility] [place] [facility] [address] [id number] [place] [address]- 8886 Jan, [facility] [place] [facility] [address] [id number] [place] [address]- 0080 Jan, [facility] [place] [facility] [address] [id number] [place] [address]- 1857 Jan, [facility] [place] [facility] [address] [id number] [place] [address]- 7407 Jan, [facility] [place] [facility] [address] [id number] [place] [address]- 1702 Jan, [facility] [place] [facility] [address] [id number] [place] [address]- 3543 Jan, [facility] [place] [facility] [address] [id number] [place] [address]- 5967 Dec, [facility] [place] [facility] [address] [id number] [place] [address]- 5433 Dec, [facility] [place] [facility] [address] [id number] [place] [address]- 5477 Dec, [facility] [place] [facility] [address] [id number] [place] [address]- 6029 Dec, [facility] [place] [facility] [address] [id number] [place] [address]- 5652 Nov, [facility] [place] [facility] [address] [id number] [place] [address]- 4342 Nov, [facility] [place] [facility] [address] [id number] [place] [address]- 5852 Nov, [facility] [place] [facility] [address] [id number] [place] [address]- 5117 Nov, [facility] [place] [facility] [address] [id number] [place] [address]- 7604 Nov, [facility] [place] [facility] [address] [id number] [place] [address]- 7140 Nov, [facility] [place] [facility] [address] [id number] [place] [address]- 9758 Nov, [facility] [place] [facility] [address] [id number] [place] [address]- 2563 Nov, [facility] [place] [facility] [address] [id number] [place] [address]- 6345 Nov, [facility] [place] [facility] [address] [id number] [place] [address]- 5583 Nov, [facility] [place] [facility] [address] [id number] [place] [address]- 9232 Nov, [facility] [place] [facility] [address] [id number], [place] [address]- 6409 Nov, [facility] [place] [facility] [address] [id number], [place] [address]- 5863 Nov, [facility] [place] [facility] [address] [id number] [place] [address]- 5145 Nov, [facility] [place] [facility] [address] [id number] [place] [address]- 8143 Nov, [facility] [place] [facility] [address] [id number] [place] [address]- 7701 Nov, [facility] [place] [facility] [address] [id number] [place] [address]- 5426 Nov, [facility] [place] [facility] [address] [id number] [place] [address]- 7868 Nov, [facility] [place] [facility] [address] [id number] [place] [address]- 5723 Nov, [facility] [place] [facility] [address] [id number] [place] [address]- 1241 Nov, [facility] [place] [facility] [address] [id number] [place] [address]- 9080 Nov, [facility] [place] [facility] [address] [id number] [place] [address]- 1213 Nov, [facility] [place] [facility] [address] [id number] [place] [address]- 7040 Nov, [facility] [place] [facility] [address] [id number] [place] [address]- 1251 Nov, [facility] [place] [facility] [address] [id number] [place] [address]- 2972 Nov, [facility] [place] [facility] [address] [id number] [place] [address]- 8652 Nov, [facility] [place] [facility] [address] [id number] [place] [address]- 1605 October, [facility] [place] [facility] [address] [id number] [place] [address]- 4154 October, [facility] [place] [facility] [address] [id number] [place] [address]- 7480 October, [facility] [place] [facility] [address] [id number] [place] [address]- 6197 October, [facility] [place] [facility] [address] [id number] [place] [address]- 4633 October, [facility] [place] [facility] [address] [id number] [place] [address]- 1376 October, [facility] [address] [id number] [place] [address]- 1176 October, [facility] [place] [facility] [address] [id number] [place] [address]- 9601 October, [facility] [place] [facility] [address] [id number] [place] October, [facility] [place] [facility] [address] [id number] [place] [address]- 2408 October, [facility] [place] [facility] [address] [id number] [place] [address]- 2323 October, [facility] [place] [facility] [address] [id number] [place] [address]- 2870 October, [facility] [place] [facility] [address] [id number] [place] [address]- 7228 October, [facility] [place] [facility] [address] [id number] [place] [address]- 8826 October, [facility] [place] [facility] [address] [id number] [place] [address]- 0103 October, [facility] [place] [facility] [address] [id number] [place] [address]- 1859 October, [facility] [place] [facility] [address] [id number] [place] [address]- 8103 October, [facility] [place] [facility] [address] [id number] [place] [address]- 7379 Sep, [facility] [place] [facility] [address] [id number] [place] [address]- 2742 Sep, [facility] [place] [facility] [address] [id number] [place] [address]- 9024 Sep, [facility] [place] [facility] [address] [id number] [place] [address]- 3484 Sep, [facility] [place] [facility] [address] [id number], [place] [address]- 5057 Sep, [facility] [place] [facility] [address] [id number] [place] [address]- 1602 Sep, [facility] [place] [facility] [address] [id number] [place] [address]690 Sep, [facility] [place] [facility] [address] [facility] [id number] [place] [address]- 8866 Aug, [facility] [place] [facility] [address] [id number] [place] [address]- 3092 Aug, [facility] [place] [facility] [address] [id number] [place] [address]- 2000 Aug, [facility] [place] [facility] [address] [facility] [id number] [place] [address]- 5964 Aug, [facility] [place] [facility] [address] [facility] [id number] [place] [address]- 3192 Aug, [facility] [place] [facility] [address] [facility] [id number] [place] [address]- 3521 Aug, [facility] [place] [facility] [address] [facility] [id number] [place] [address]- 5314 Jul, [facility] [place] [facility] [address] [facility] [id number] [place] [address]- 3334 Jul, [facility] [place] [facility] [address] [facility] [id number] [place] [address]- 9215 Jul, [facility] [place] [facility] [address] [facility] [id number], [place] [address]- 6388 Jul, [facility] [place] [facility] [address] [facility] [id number] [place] [address]- 0067 Jul, [facility] [place] [facility] [address] [facility] [id number], [place] [address]- 2948 Jul, [facility] [place] [facility] [address] [facility] [id number], [place] [address]- 5041 Jul, [facility] [place] [facility] [address] [id number] [place] [address]- 5251 Jul, [facility] [place] [facility] [address] [id number] [place] [address]- 6038 Jul, [facility] [place] [facility] [address] [id number] [place] [address]- 8695 Jul, [facility] [place] [facility] [address] [id number] [place] [address]- 2626 Jun, [facility] [place] [facility] [address] [id number] [place] [address]- 2094 Jun, [facility] [place] [facility] [address] [id number] [place] [address]- 4294 Jun, [facility] [place] [facility] [address] [id number] [place] [address]- 7947 Jun, [facility] [place] [facility] [address] [id number], [place] [address]- 9577 Jun, [facility] [place] [facility] [address] [id number] [place] [address]- 2283 Jun, [facility] [place] [facility] [address] [id number], [place] [address]- 8520 Jun, [facility] [place] [facility] [address] [id number], [place] [address]- 8654 May, [facility] [place] [facility] [address] [id number], [place] [address]- 8418 May, [facility] [place] [facility] [address] [id number], [place] [address]- 8637 May, [facility] [place] [facility] [address] [id number], [place] [address]- 3839 May, [facility] [place] [facility] [address] [id number], [place] [address]- 3069 May, [facility] [place] [facility] [address] [id number], [place] [address]- 8431 May, [facility] [address] [id number] [place] [address]- 1510 Apr, [facility] [place] [facility] [address] [id number], [place] [address]- 0367 Apr, [facility] [place] [facility] [address] [facility] [id number] [place] [address]- 8282 Apr, [facility] [place] [facility] [address] [id number], [place] [address]- 8532 Apr, [facility] [place] [facility] [address] [facility] [id number] [place] [address], [place] [address]- 6489 15 Apr, 2013 [facility] [place] [facility] [address] [facility] [id number], [place] [address]- 1664 14 Apr, 2013 [facility] [place] [facility] [address] [id number], [place] [address]- 6129 Apr, [facility] [place] [facility] [address] [facility] [id number], [place] [address]- 7724 Apr, [facility] [place] [facility] [address] [id number], [place] [address]- 4852 Apr, [facility] [place] [facility] [address] [id number], [place] [address]- 5867 Apr, [facility] [place] [facility] [address] [facility] [id number], [place] [address]- 4151 Apr, [facility] [place] [facility] [address] [facility] [id number], [place] [address]- 1220 Apr, [facility] [place] [facility] [address] [facility] [id number], [place] [address]- 3424 Apr, [facility] [place] [facility] [address] [facility] [id number], [place] [address]- 9484 Mar, [facility] [place] [facility] [address] [facility] [id number], [place] [address]- 4168 Mar, [facility] [place] [facility] [address] [id number] [place] [address]- 3743 29 Mar, 2012 [facility] [place] [facility] [address] [id number] [place] [address]- 9383 28 Mar, 2012 [facility] [place] [facility] [address] [id number] [place] [address]- 5649 28 Mar, 2012 [facility] [place] [facility] [address] [id number] [place] [address]- 4319 16 Mar, 2012 [facility] [place] [facility] [address] [id number] [place] [address]- 3022 16 Mar, 2012 [facility] [place] [facility] [address] [id number] [place] [address]- 6056 15 Mar, 2012 [facility] [place] [facility] [address] [id number] [place] [address]- 0293 15 Mar, 2012 [facility] [place] [facility] [address] [id number] [place] [address]- 1927 15 Mar, 2012 [facility] [place] [facility] [address] [id number] [place] [address]- 2301 15 Mar, 2012 [facility] [place] [facility] [address] [id number] [place] [address]- 0621 13 Mar, 2012 [facility] [place] [facility] [address] [id number] [place] [address]- 9266 10 Mar, 2012 [facility] [place] [facility] [address] [id number] [place] [address]- 4472 10 Mar, 2012 [facility] [place] [facility] [address] [id number] [place] [address]- 9825 2013 [facility] [place] [facility] [address] [id number] [place] [address]- 8209 03 Mar, 2013 [facility] [place] [facility] [address] [id number] [place] [address]- 3741 27 Feb, 2012 [facility] [place] [facility] [address] [id number] [place] [address]- 7998 26 Sep, 2012 [facility] [place] [facility] [address] [id number] [place] [address] 2545 25 Sep, 2012 [facility] [place] [facility] [address] [id number] [place] [address]- 3106 24 Sep, 2012 [facility] [place] [facility] [address] [id number] [place] [address]- 3546 23 Sep, 2012 [facility] [place] [facility] [address] [id number] [place] [address]- 4413 20 Sep, 2012 [facility] [place] [facility] [address] [id number] [place] [address]- 8027 18 Sep, 2012 [facility] [place] [facility] [address] [id number] [place] [address]- 8017 17 Feb, 2012 [facility] [place] [facility] [address] [id number] [place] [address]- 6126 11 Feb, 2012 [facility] [place] [facility] [address] [id number] [place] [address]- 2832 09 Sep, 2012 [facility] [place] [facility] [address] [id number] [place] [address]- 5182 09 Sep, 2012 [facility] [place] [facility] [address] [id number] [place] [address]- 8152 08 Sep, 2012 [facility] [place] [facility] [address] [id number], [place] [address]- 3439 06 Sep, 2012 [facility] [place] [facility] [address] [id number], [place] [address]- 2540 06 Sep, 2012 [facility] [place] [facility] [address] [id number] [place] [address]- 2542 04 Feb, 2012 [facility] [place] [facility] [address] [id number] [place] [address]- 6515 26 Jan, 2013 [facility] [place] [facility] [address] [id number] [place] [address]- 8949 Jan, [facility] [place] [facility] [address] [id number] [place] [address]- 8770 Jan, [facility] [place] [facility] [address] [id number] [place] [address]- 3214 Jan, [facility] [place] [facility] [address] [id number] [place] [address]- 3171 Jan, [facility] [place] [facility] [address] [id number] [place] [address]- 4074 Jan, [facility] [place] [facility] [address] [id number] [place] [address]- 4016 Jan, [facility] [place] [facility] [address] [id number] [place] [address]- 8165 Jan, [facility] [place] [facility] [address] [id number] [place] [address]- 4473 Jan, [facility] [place] [facility] [address] [id number] [place] [address]- 8983 Dec, [facility] [place] [facility] [address] [id number] [place] [address]- 3592 Dec, [facility] [place] [facility] [address] [id number] [place] [address]- 8418 Dec, [facility] [place] [facility] [address] [id number] [place] [address]- 6912 Dec, [facility] [place] [facility] [address] [id number] [place] [address]- 3460 Dec, [facility] [place] [facility] [address] [id number] [place] [address]- 3062 Dec, [facility] [place] [facility] [address] [id number] [place] [address]- 2887 Dec, [facility] [place] [facility] [address] [id number] [id number] 7231 Dec, [facility] [place] [facility] [address] [id number] [place] [address]- 7510 Nov, [facility] [place] [facility] [address] [id number] [place] [address]- 8765 Nov, [facility] [place] [facility] [address] [id number] [place] [address]- 7048 Nov, [facility] [place] [facility] [address] [id number] [place] [address]- 1024 24 Nov, 2012 [facility] [place] [facility] [address] [id number] [place] [address]- 6536 Nov, [facility] [place] [facility] [address] [id number] [place] [address]- 7243 18 Nov, 2012 [facility] [place] [facility] [address] [id number] [place] [address]- 3406 Nov, [facility] [place] [facility] [address] [id number] [place] [address]- 1313 17 Nov, 2012 [facility] [place] [facility] [address] [id number] [place] [address]- 6937 14 Nov, 2012 [facility] [place] [facility] [address] [id number] [place] [address]- 1478 Nov, [facility] [place] [facility] [address] [id number] [place] [address]- 7567 Nov, [facility] [place] [facility] [address] [id number] [place] [address]- 2279 08 Nov, 2012 [facility] [place] [facility] [address] [id number] [place] [address]- 0601 05 Nov, 2012 [facility] [place] [facility] [address] [id number] [place] [address]- 0054 04 Nov, 2012 [facility] [place] [facility] [address] [id number] [place] [address]- 1299 04 Nov, 2012 [facility] [place] [facility] [address] [id number] [place] [address]- 7029 03 Nov, 2012 [facility] [place] [facility] [address] [id number] [place] [address]- 2546 Nov, [facility] [address] [id number] [place] [address]- 6789 Nov, [facility] [address] [id number] [place] [address] October, [facility] [address] [id number] [place] [address] October, [facility] [address] [id number] [place] [address] October, [facility] [address] [id number] [place] [address] October, [facility] [address] [id number] [place] [address] October, [facility] [address] [id number] [place] [address] October, [facility] [address] [id number] [place] [address] October, [facility] [address] [id number] [place] [address] October, [facility] [address] [id number] [place] [address] Sep, [facility] [place] [facility] [address] [id number] [place] [address] Sep, [facility] [place] [facility] [address] [id number] [place] [address] Sep, [facility] [place] [facility] [address] [id number] [place] [address] Sep, [facility] [place] [facility] [address] [id number] [place] [address] Sep, [facility] [place] [facility] [address] [id number] [place] [address] Sep, [facility] [place] [facility] [address] [id number] [place] [address] 05 Sep, 2012 [facility] [address] [id number] [place] [address] 29 Aug, 2012 [facility] [address] [id number] [place] [address] Aug, [facility] [address] [id number] [place] [address] 269[address] Aug, [facility] [address] [id number] [place] [address] Aug, [facility] [address] [id number] [place] [address] Aug, [facility] [address] [id number] [place] [address] Aug, [facility] [address] [id number] [place] [address] Aug, [facility] [address] [id number] [place] [address] Aug, [facility] [address] [id number] [place] [address] 15[address] Jul, [facility] [address] [id number] [place] [address] 79[address] Jul, [facility] [address] [id number] [place] [address] Jun, [facility] [address] [id number] [place] [address] Jun, [facility] [place] [facility] [address] [id number] [place] [address]- 27[address] Jun, [facility] [place] [facility] [address] [id number] [place] [address]- [address] Jun, [facility] [address] [id number] [place] [address] 1673 Jun, [facility] [place] [facility] [address] [id number] [place] [address] May, [facility] [place] [facility] [address] [id number] [place] [address]- 07[address] May, [facility] [place] [facility] [address] [id number] [place] [address] May, [facility] [place] [facility] [address] [id number] [place] [address] May, [facility] [place] [facility] [address] [id number] [place] [address] 94[address] May, [facility] [place] [facility] [address] [id number] [place] [address] 39[address] May, [facility] [place] [facility] [address] [id number] [place] [address] May, [facility] [place] [facility] [address] [id number] [place] [address]- [address] May, [facility] [place] [facility] [address] [id number] [place] [address]- [address] Apr, [facility] [place] [facility] [address] [id number] [place] [address] 46[address] Apr, [facility] [place] [facility] [address] [id number] [place] [address] Apr, [facility] [place] [facility] [address] [id number], [place] [address] Apr, [facility] [place] [facility] [address] [id number] [place] [address] Apr, [facility] [place] [facility] [address] [id number] [place] [address]- [address] Apr, [facility] [place] [facility] [address] [facility] [id number] [place] [address]- [address] 16 Apr, 2012 [facility] [place] [facility] [address] [id number] [place] [address]- 76[address] 16 Apr, 2012 [facility] [place] [facility] [address] [id number] [place] [address] 15 Apr, 2012 [facility] [place] [facility] [address] [id number] [place] [address]- [address] 15 Apr, 2012 [facility] [place] [facility] [address] [facility] [id number] [place] [address]- 2870 Apr, [facility] [place] [facility] [address] [id number] [place] [address] 96[address] Apr, [facility] [place] [facility] [address] [id number] [place] [address]- 26[address] Apr, [facility] [place] [facility] [address] [id number] [place] [address]- 8698 Apr, [facility] [place] [facility] [address] [facility] [id number] [place] [address]- [address]17 Apr, [facility] [place] [facility] [address] [facility] [id number] [place] [address]- 3947 Apr, [facility] [place] [facility] [address] [facility] [id number] [place] [address]- 7[address] Apr, [facility] [place] [facility] [address] [facility] [id number] [place] [address]- 9601 Apr, [facility] [place] [facility] [address] [facility] [id number] [place] [address] 9447 Mar, [facility] [place] [facility] [address] [id number], [place] [address] Mar, [facility] [place] [facility] [address] [id number] [place] [address]- 9189 Mar, [facility] [place] [facility] [address] [facility] [id number] [place] [address]- [address] 18 Mar, 2012 [facility] [place] [facility] [address] [facility] [id number], [place] [address] 17 Mar, 2012 [facility] [place] [facility] [address] [id number] [place] [address]- 75[address] 15 Mar, 2012 [facility] [place] [facility] [address] [id number] [place] [address]- 9664 15 Mar, 2012 [facility] [place] [facility] [address] [id number] [place] [address]- 4[address] Mar, [facility] [place] [facility] [address] [id number] [place] [address]- 1087 Mar, [facility] [place] [facility] [address] [id number] [place] [address]- 5963 Mar, [facility] [place] [facility] [address] [id number] [place] [address] Mar, [facility] [place] [facility] [address] [id number] [place] [address] Feb, [facility] [place] [facility] [address] [id number] [place] [address] Feb, [facility] [place] [facility] [address] [id number] [place] [address] 6[address] Feb, [facility] [place] [facility] [address] [id number] [place] [address]141 30 Jan, 2012 [facility] [place] [facility] [address] [id number] [place] [address] Jan, [facility] [place] [facility] [address] [id number] [place] [address] 46[address] Jan, [facility] [place] [facility] [address] [id number] [place] [address] Jan, [facility] [place] [facility] [address] [id number] [place] [address] Jan, [facility] [place] [facility] [address] [id number] [place] [address]- 254 16 Jan, 2012 [facility] [place] [facility] [address] [id number] [place] [address] 2439 16 Jan, 2012 [facility] [place] [facility] [address] [id number] [place] [address] 3254 Jan, [facility] [place] [facility] [address] [id number] [place] [address] 4586 Jan, [facility] [place] [facility] [address] [id number] [place] [address] 8[address] Jan, [facility] [place] [facility] [address] [id number] [place] [address] 4[address] Dec, [facility] [place] [facility] [address] [id number] [place] [address]- 5533 Dec, [facility] [place] [facility] [address] [id number] [place] [address] 2860 Dec, [facility] [place] [facility] [address] [id number] [place] [address]- 4[address] Dec, [facility] [place] [facility] [address] [id number] [place] [address] 00[address] 24 Dec, 2011 [facility] [place] [facility] [address] [id number] [place] [address] 7339 Dec, [facility] [place] [facility] [address] [id number] [place] [address] 37[address] Dec, [facility] [place] [facility] [address] [id number] [place] [address]- 0965 17 Dec, 2011 [facility] [place] [facility] [address] [id number] [place] [address] 4[address] 14 Dec, 2011 [facility] [place] [facility] [address] [id number] [place] [address] 9143 12 Dec, 2011 [facility] [place] [facility] [address] [id number] [place] [address] 2829 Dec, [facility] [place] [facility] [address] [id number] [place] [address] 3118 Dec, [facility] [place] [facility] [address] [id number] [place] [address] 2173 Dec, [facility] [address] [id number] [place] [address] 6325 Nov, [facility] [address] [id number] [place] [address] 8744 Nov, [facility] [address] [id number] [place] [address]- 0166 Nov, [facility] [address] [id number] [place] [address] 9296 Nov, [facility] [address] [id number] [place] [address] 3580 Nov, [facility] [address] [id number] [place] [address] 6309 Nov, [facility] [address] [id number] [place] [address] 3216 October, [facility] [address] [id number] [place] [address] 4973 October, [facility] [address] [id number] [place] [address] 7303 October, [facility] [address] [id number] [place] [address] 8629 October, [facility] [address] [id number] [place] [address] 5924 October, [facility] [address] [id number] [place] [address]- 3235 October, [facility] [place] [facility] [address] [id number] [place] [address] 6466 October, [facility] [address] [id number] [place] [address]- 5878 Sep, [facility] [address] [id number] [place] [address]- 1874 Sep, [facility] [place] [facility] [address] [id number] [place] [address]- 1195 26 Sep, 2011 [facility] [place] [facility] [address] [id number] [place] [address]- 5498 25 Sep, 2011 [facility] [place] [facility] [address] [id number] [place] [address]- 5529 23 Sep, 2011 [facility] [place] [facility] [address] [id number] [place] [address]- 0184 20 Sep, 2011 [facility] [address] [id number] [place] [address]- 9603 16 Sep, 2011 [facility] [place] [facility] [address] [id number] [place] [address]- 6894 Sep, [facility] [address] [id number] [place] [address]- 9023 Sep, [facility] [address] [id number] [place] [address]- 8477 Sep, [facility] [place] [facility] [address] [id number] [place] [address]- 3928 Sep, [facility] [place] [facility] [address] [id number] [place] [address]- 1183 Sep, [facility] [place] [facility] [address] [id number] [place] [address] 8124 15 Aug, 2011 [facility] [place] [facility] [address] [id number], [place] [address] 116[address] Aug, [facility] [place] [facility] [address] [id number] [place] [address]- 8764 Aug, [facility] [place] [facility] [address] [id number] [place] [address]- 6721 Aug, [facility] [place] [facility] [address] [id number] [place] [address] 4460 Jul, [facility] [place] [facility] [address] [id number], [place] [address] 2546 Jul, [facility] [address] [id number] [place] [address] 2546 Jul, [facility] [place] [facility] [address] [id number] [place] [address] 2546 Jul, [facility] [place] [facility] [address] [id number] [place] [address] 2546 Jul, [facility] [place] [facility] [address] [id number] [place] [address] 2546 Jul, [facility] [place] [facility] [address] [id number] [place] [address] 2546 Jul, [facility] [place] [facility] [address] [id number] [place] [address] 2546 Jul, [facility] [place] [facility] [address] [id number] [place] [address] 2546 Jul, [facility] [place] [facility] [address] [id number] [place] [address]- 5117 Jul, [facility] [place] [facility] [address] [id number] [place] [address] 1766 Jul, [facility] [place] [facility] [address] [facility] [id number] [place] [address] 8956 Jul, [facility] [place] [facility] [address] [facility] [id number] [place] [address] 2546 Jul, [facility] [place] [facility] [address] [id number] [place] [address] 2546 Jun, [facility] [place] [facility] [address] [id number] [place] [address] 2546 Jun, [facility] [place] [facility] [address] [facility] [id number] [place] [address] 2546 Jun, [facility] [place] [facility] [address] [facility] [id number] [place] [address]- 3336 Jun, [facility] [place] [facility] [address] [id number] [place] [address]- 4215 Jun, [facility] [place] [facility] [address] [id number] [place] [address]- 6026 Jun, [facility] [place] [facility] [address] [id number] [place] [address]- 9447 Jun, [facility] [place] [facility] [address] [id number] [place] [address]- 9386 Jun, [facility] [place] [facility] [address] [id number] [place] [address]- 7264 Jun, [facility] [place] [facility] [address] [id number] [place] [address]- 1055 Jun, [facility] [place] [facility] [address] [id number] [place] [address]- 1520 May, [facility] [place] [facility] [address] [id number] [place] [address]- 7730 May, [facility] [place] [facility] [address] [id number] [place] [address]- 2050 May, [facility] [place] [facility] [address] [id number] [place] [address]- 5153 May, [facility] [place] [facility] [address] [id number], [place] [address]- 4698 Apr, [facility] [place] [facility] [address] [id number], [place] [address]- 1589 Apr, [facility] [place] [facility] [address] [id number] [place] [address]- 7143 Apr, [facility] [place] [facility] [address] [id number] [place] [address]- 0237 Apr, [facility] [place] [facility] [address] [id number] [place] [address]- 9018 Apr, [facility] [place] [facility] [address] [id number] [place] [address]- 4662 31 Mar, 2011 [facility] [address] [id number] [place] [address]- 1016 24 Mar, 2011 [facility] [place] [facility] [address] [id number] [place] [address]- 9586 18 Mar, 2011 [facility] [address] [id number] [place] [address]- 6176 18 Mar, 2011 [facility] [place] [facility] [address] [id number] [place] [address] 2545 28 May, 2010 [facility] [address] [id number] [place] [address]- 7343 22 May, 2010 [facility] [place] [facility] [address] [id number] [place] [address]- 3016 17 May, 2010 [facility] [address] [id number] [place] [address]- 2211 17 May, 2010 [facility] [place] [facility] [address] [id number] [place] [address] 2544 15 May, 2010 [facility] [place] [facility] [address] [id number] [place] [address]- 1939 09 May, 2010 [facility] [place] [facility] [address] [facility] [id number] [place] [address]- 4472 08 May, 2010 [facility] [place] [facility] [address] [id number] [place] [address]- 8540 May, [facility] [place] [facility] [address] [id number] [place] [address] 2544 29 Apr, 2010 [facility] [place] [facility] [address] [id number] [place] [address] 2546 16 Apr, 2010 [facility] [place] [facility] [address] [id number] [place] [address]- 2546 16 Apr, 2010 [facility] [place] [facility] [address] [id number] [place] [address]- 0549 15 Apr, 2010 [facility] [address] [address]- 2546 08 Apr, 2010 [facility] [id number] [place] [address] 2546 05 Apr, 2010 [facility] [id number] [place] [address] 635[address]- 2546 Apr, [facility] [id number] [place] [address]58- 2546 Apr, [facility] [id number] [place] [address] 90353- 7403 Mar, [facility] [id number] [place] [address] 30897- 3426 Jan, [facility] [id number] [place] [address] 83584- 0746 Nov, [facility] [id number] [place] [address] 80092- 4726 October, [facility] [id number] [place] [address] 57170- 9779 Sep, [facility] [id number] [place] [address] 79945- 0976 Aug, [facility] [id number] [place] [address] 99398- 1256 Jul, [facility] [id number] [place] [address] 84742- 2546 Jun, IMMUNIZATIONS Vaccine Route Administration Date Status FLUARIX QUAD (3 AND UP) 2017 IM Intramuscular Feb 14, 2017 Administered SOCIAL HISTORY Never Assessed REASON FOR VISIT Pain management (chronic)-AHarrymanRN, Dizziness, is temporarily stopping certain meds to rule them out PLAN OF CARE Activity Details Follow Up 3 Months or prn Reason:pain VITAL SIGNS Height 64 in 2017-02-14 Weight 165.0 lbs 2017-02-14 Temperature 98.6 degrees Fahrenheit 2017-02-14 Heart Rate 90 bpm 2017-02-14 Respiratory Rate 20 2017-02-14 BMI 28.32 kg/m2 2017-02-14 Blood pressure systolic 94 mmHg 2017-02-14 Blood pressure diastolic 62 mmHg 2017-02-14 MEDICATIONS Medication Instructions Dosage Frequency Start Date End Date Duration Status Carafate 1 GM 1 tablet on an empty stomach before meals 8h Active Baclofen 10MG Orally 2 times a day PRN 1 tablet with food or milk 90 days Active Potassium Chloride 10 mEq started by Aayush 24h Dec, Active Lyrica 100 mg Orally 2 times a day 1 capsule 12h 28 days Active Topamax 200 MG Orally Twice a day 1 tablet 12h October, Active Vstzg-2-hsij Ethyl Esters 1GM 1 capsule 12h Active Bactroban 2 % Externally Three times a day 1 application to affected area 8h Feb, Feb, 07 days Active Promethazine HCl 25MG Orally every 12 hrs prn nausea 1 tablet as needed 15 Active Lipitor 20 mg Orally Once a day-must have appt for further refills 1 tablet by Oral route 1 time per day Jan, Active Hydrocodone-Acetaminophen 5-325 MG Orally 3 times a day 1 tablet as needed 8h 13 Feb, 2017 Mar, 28 days Active Ventolin HFA 108 (90 Base) mcg/act Inhalation every 4 hrs prn 2 puffs Nov, Active Imitrex 50 mg Orally Twice a day prn 1 tablet as needed Active Nexium 40 mg Orally Once a day 1 capsule 24h Active Lexapro 20 mg 1 tablet by Oral route 1 time per day takes 1 1/2 tabs daily Jun, Active Albuterol Sulfate (2.5 MG/3ML) 0.083% Inhalation 2 times a day 3 ml 12h Active Seroquel XR 50 mg Orally 2 times a day 1 tablet 12h Dec, Active Fluticasone Propionate 50 mcg/act USE ONE SPRAY(S) IN EACH NOSTRIL TWICE DAILY Active RESULTS Name Result Date Reference Range AMERITOX 2017-02-14 CBC 2017-02-14 WBC 8.5 3.4-10.8 RBC 4.76 3.77-5.28 Hemoglobin 13.9 11.1-15.9 Hematocrit 41.1 34.0-46.6 MCV 86 79-97 MCH 29.2 26.6-33.0 MCHC 33.8 31.5-35.7 RDW 14.6 12.3-15.4 Platelets 237 150-379 Neutrophils 42 Lymphs 48 Monocytes 9 Eos 1 Basos 0 Neutrophils (Absolute) 3.6 1.4-7.0 Lymphs (Absolute) 4.0 0.7-3.1 Monocytes(Absolute) 0.7 0.1-0.9 Eos (Absolute) 0.1 0.0-0.4 Baso (Absolute) 0.0 0.0-0.2 Immature Granulocytes 0 Immature Grans (Abs) 0.0 0.0-0.1 CMP 2017-02-14 Glucose, Serum 86 65-99 BUN 8 6-24 Creatinine, Serum 1.01 0.57-1.00 eGFR If NonAfricn Am 62 >59 eGFR If Africn Am 71 >59 BUN/Creatinine Ratio 8 9-23 Sodium, Serum 143 134-144 Potassium, Serum 4.0 3.5-5.2 Chloride, Serum 102 96-106 Carbon Dioxide, Total 25 18-29 Calcium, Serum 8.8 8.7-10.2 Protein, Total, Serum 6.2 6.0-8.5 Albumin, Serum 3.9 3.5-5.5 Globulin, Total 2.3 1.5-4.5 A/G Ratio 1.7 1.2-2.2 Bilirubin, Total <0.2 0.0-1.2 Alkaline Phosphatase, S 125 39-117 AST (SGOT) 12 0-40 ALT (SGPT) 21 0-32 PROCEDURES Procedure Date Ordered Result Body Site LAB [facility] Feb 14, 2017 [facility] VISIT ESTABLISHED PATIENT Feb 14, 2017 No Charge Feb 14, 2017 VENIPUNCT, ROUTINE* Feb 14, 2017 SINGLE IMMUNIZATION ADMIN Feb 14, 2017 FLUARIX QUAD (3 & UP)-[id number] 14, 2017 INSTRUCTIONS MEDICATIONS ADMINISTERED No Known Medications MEDICAL [...] disorder, dependent personality disorder. Being seen by [facility] Medical History chonic pain since 1994 when [...]
--- OUTSIDE RECORDS SUMMARY | 2017-10-22 17:58 | XMS REPORT ---
Author Author HASEEB COOK Organization [employer] Address Unknown Phone Unavailable Care Team Providers Care Zipper Sewing Machine Operator Name Role Phone HASEEB COOK CP Unavailable [...] T14.8 Active Problem Arthritis M19.90 Active Medications Medication Code System Code Instructions Start Date End Date Status Dosage Nexium [facility] [place] [address]-04 40MG Orally Once a day 1 capsule Promethazine HCl [facility] [place] 00816040844 25 MG Orally every 12 hrs prn nausea 1 tablet as needed Lyrica [facility] [place] [address]-67 100 MG Orally 2 times a day 1 capsule Dkzam-5-pkxn Ethyl Esters [facility] [place] [id number] 1GM Twice a day October 04, 2016 1 capsule Results No Known Results Summary Purpose [employer] Submission
--- OUTSIDE RECORDS SUMMARY | 2017-10-22 17:58 | XMS REPORT ---
Author HASEEB Valverde Organization [employer] Address Unknown Phone Unavailable Care Team Providers Care Pipe Or Steam Fitter Furnace Installer Name Role Phone HASEEB COOK CP Unavailable [...] Start Date End Date Status Dosage Lyrica [facility] [id number] 75MG TAKE ONE CAPSULE BY MOUTH TWICE DAILY FOR NEUROPATHY/ANXIETY AND PAIN Results No Known Results Summary Purpose [employer] Submission
--- OUTSIDE RECORDS SUMMARY | 2017-10-22 17:59 | XMS REPORT ---
Author Author HASEEB COOK Organization [employer] Address Unknown Phone Unavailable Care Team Providers Care Volunteer Specialist Name Role Phone HASEEB COOK CP [...] Instructions Start Date End Date Status Dosage Albuterol Sulfate [facility] [address]-62 (2.5 MG/3ML) 0.083% Inhalation 2 times a day 3 ml Results No Known Results Summary Purpose [employer] Submission
--- OUTSIDE RECORDS SUMMARY | 2017-10-22 17:59 | XMS REPORT ---
Author Author HASEEB COOK Organization [facility] Address [address] [place] [address] Care Team Providers Care Secondary Education Professor Name Role Phone HASEEB COOK Unavailable PROBLEMS Type Condition ICD9-CM Code HCP15-IE Code Onset Dates Condition Status SNOMED Code Problem Arthritis M19.90 Active 6210352 Problem Mixed hyperlipidemia E78.2 Active 933953172 Problem Chronic pain syndrome G89.4 Active 188665962 Problem Chronic obstructive pulmonary disease (COPD) suggested by initial evaluation J44.9 Active 21834936 Problem Gastroesophageal reflux disease without esophagitis K21.9 Active 691677223 Problem 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 66963333 Problem Migraine without aura and with status migrainosus, not intractable G43.001 Active 107038574 Problem Chronic renal insufficiency, stage 1 N18.1 Active 018007468 Problem Cervical pain M54.2 Active 30613677 Problem Compression fracture T14.8 Active 503155396 Problem Back pain at L4-L5 level M54.5 Active 431291890 ALLERGIES No Information SOCIAL HISTORY Never Assessed PLAN OF CARE VITAL SIGNS MEDICATIONS Medication Instructions Dosage Frequency Start Date End Date Duration Status Albuterol Sulfate (2.5 MG/3ML) 0.083% Inhalation 2 times a day 3 ml 12h 90 days Active Fluticasone Propionate 50 mcg/act USE ONE SPRAY(S) IN EACH NOSTRIL TWICE DAILY 30 Active RESULTS No Results PROCEDURES No Known [...] disorder, dependent personality disorder. Being seen by [facility] Medical History chonic pain since 1994 when [...]
--- OUTSIDE RECORDS SUMMARY | 2017-10-22 17:59 | XMS REPORT ---
Author Author HASEEB COOK Organization [facility] Address [address] [place] [address] Care Team Providers Care Rug Hooker Name Role Phone HASEEB COOK Unavailable PROBLEMS Type Condition ICD9-CM Code VIL24-RU Code Onset Dates Condition Status SNOMED Code Problem Gastroesophageal reflux disease without esophagitis K21.9 Active 008964409 Problem Chronic renal insufficiency, stage 1 N18.1 Active 937194560 Problem Cervical pain M54.2 Active 03340416 Problem Chronic fatigue R53.82 Active 05942886 Problem Psychiatric illness F99 Active 27528775 Problem Compression fracture T14.8 Active 160957316 Problem Back pain at L4-L5 level M54.5 Active 547475945 Problem 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 48406109 Problem Migraine without aura and with status migrainosus, not intractable G43.001 Active 936825414 Problem Chronic obstructive pulmonary disease (COPD) suggested by initial evaluation J44.9 Active 67386686 Problem Arthritis M19.90 Active 6165759 Problem Chronic pain syndrome G89.4 Active 899108999 Problem Infarction of distal end of right femur M87.051 Active 091262248 Problem Mixed hyperlipidemia E78.2 Active 597074004 ALLERGIES No Information ENCOUNTERS Encounter Location Date Diagnosis [facility] [id number] [address] Sep, Arthritis M19.90 [facility] [id number] [address] Sep, [facility] [address] [address] Aug, Chronic pain syndrome G89.4 ; Chronic obstructive pulmonary disease (COPD) suggested by initial evaluation J44.9 ; Arthritis M19.90 ; Migraine without aura and with status migrainosus, not intractable G43.001 ; Gastroesophageal reflux disease without esophagitis K21.9 ; Mixed hyperlipidemia E78.2 ; Chronic renal insufficiency, stage 1 N18.1 and Chronic fatigue R53.82 [facility] [id number] [place] [address] 12022- 5743 Aug, Chronic pain syndrome G89.4 [facility] [id number] [place] [address] 23479- 5257 Aug, [facility] [id number] [place] [address] 27323- 7700 Aug, Arthritis M19.90 [facility] [id number] [place] [address] 46128- 9907 Aug, [facility] [id number] [place] [address] 28324- 0165 Jul, Chronic pain syndrome G89.4 ; Chronic obstructive pulmonary disease (COPD) suggested by initial evaluation J44.9 ; Arthritis M19.90 ; Migraine without aura and with status migrainosus, not intractable G43.001 ; Gastroesophageal reflux disease without esophagitis K21.9 ; Mixed hyperlipidemia E78.2 ; Chronic renal insufficiency, stage 1 N18.1 and Closed compression fracture of L4 lumbar vertebra with delayed healing, subsequent encounter S32.040G [facility] [id number] [place] [address] 89308- 0218 Jul, Chronic pain syndrome G89.4 [facility] [id number] [place] [address] 83098- 1884 Jul, [facility] [id number] [place] [address] 08514- 3583 Jul, [facility] [id number] [place] [address] 96187- 0097 Jul, Arthritis M19.90 [facility] [id number] [place] [address] 25860- 3741 Jul, Infarction of distal end of right femur M87.051 [facility] [address] [address] 5[address] Jun, Chronic pain syndrome G89.4 ; Chronic [...] M25.571 and Pain, joint, knee, right M25.561 [facility] [id number] [place] [address] 76255- 7480 Jun, Arthritis M19.90 [facility] [id number] [place] [address] 32402- 2296 May, [facility] [id number] [place] [address] 81618- 8324 May, Chronic pain syndrome G89.4 and Migraine without aura and with status migrainosus, not intractable G43.001 [facility] [id number] [place] [address] 36558- 9726 May, Arthritis M19.90 [facility] [id number] [place] [address] 43960- 0185 May, Chronic obstructive pulmonary disease (COPD) suggested by initial evaluation J44.9 [facility] [id number] [place] [address] 02179- 0682 Apr, [facility] [id number] [place] [address] 16816- 4805 Apr, Arthritis M19.90 [facility] [id number] [place] [address] 17510- 1149 Mar, Arthritis M19.90 [facility] [address] [place] [address] 74968- 7747 Feb, [facility] [id number] [place] [address] 13388- 6339 Feb, [facility] [id number] [place] [address] 42593- 8079 Feb, Chronic pain syndrome G89.4 [facility] [id number] [place] [address] 08436- 1560 13 Feb, 2017 Migraine without aura and with status migrainosus, not intractable G43.001 ; Arthritis M19.90 ; Gastroesophageal reflux disease without esophagitis K21.9 ; Chronic pain syndrome G89.4 ; Chronic renal insufficiency, stage 1 N18.1 ; Mixed hyperlipidemia E78.2 ; Chronic obstructive pulmonary disease (COPD) suggested by initial evaluation J44.9 ; Skin infection L08.9 and Encounter for immunization Z23 [facility] [id number] [place] [address] 72671- 5759 Jan, Migraine without aura and with status migrainosus, not intractable G43.001 [facility] [address] 46438- 2844 Jan, Migraine without aura and with status migrainosus, not intractable G43.001 [facility] [id number] [place] [address] 49970- 0970 Jan, Arthritis M19.90 [facility] [id number] [place] [address] 15804- 3888 Jan, [facility] [id number] [place] [address] 35046- 6411 Dec, Arthritis M19.90 [facility] [id number] [place] [address] 63417- 5498 Nov, Gastroesophageal reflux disease without esophagitis K21.9 [facility] [address] 36961- 9503 Nov, Arthritis M19.90 [facility] [id number] [place] [address] 83772- 1712 October, Chronic pain syndrome G89.4 ; Arthritis M19.90 ; Chronic renal insufficiency, stage 1 N18.1 ; Gastroesophageal reflux disease without esophagitis K21.9 ; Cervical pain M54.2 and Chronic obstructive pulmonary disease (COPD) suggested by initial evaluation J44.9 [facility] [id number] [place] [address] 20330- 8468 October, [facility] [id number] [place] [address] 76960- 1070 October, Chronic obstructive pulmonary disease (COPD) suggested by initial evaluation J44.9 [facility] [id number] [place] [address] 08349- 3003 October, 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 [facility] [id number] [place] [address] 53455- 2605 October, Mixed hyperlipidemia E78.2 ; Migraine without aura and with status migrainosus, not intractable G43.001 and 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 [facility] [id number] [place] [address] 62792- 4684 October, [facility] [id number] [place] [address] 37673- 6583 October, [facility] [id number] [place] [address] 56604- 1967 October, [facility] [id number] [place] [address] 22139- 8903 October, [facility] [id number] [place] [address] 88878- 8213 October, [facility] [id number] [place] [address] 20000- 4438 Sep, Chronic pain syndrome G89.4 [facility] [id number] [place] [address] 78502- 0995 Sep, Chronic pain syndrome G89.4 [facility] [id number] [place] [address] 01977- 2470 Sep, [facility] [id number] [place] [address] 84675- 5944 Sep, [facility] [id number] [place] [address] 41106- 8847 Sep, Chronic pain syndrome G89.4 [facility] [id number] [place] [address] 21042- 6671 Aug, Chronic pain syndrome G89.4 [facility] [id number] [place] [address] 06637- 7668 Aug, Chronic pain syndrome G89.4 and Mixed hyperlipidemia E78.2 [facility] [id number] [place] [address] 73459- 3154 Jul, [facility] [id number] [place] [address] 95251- 1770 Jun, [facility] [id number] [place] [address] 08896- 8813 Jun, Chronic pain syndrome G89.4 [facility] [id number] [place] [address] 49353- 4879 Jun, [facility] [id number] [place] [address] 22337- 8351 May, Fever chills R50.9 ; Chronic pain syndrome G89.4 ; Chronic renal insufficiency, stage 1 N18.1 ; Influenza B J10.1 ; Upper respiratory tract infection, unspecified type J06.9 and Migraine without aura and with status migrainosus, not intractable G43.001 [facility] [id number] [place] [address] 43114- 0891 May, [facility] [id number] [place] [address] 11400- 3198 Apr, [facility] [id number] [place] [address] 84044- 6257 Apr, [facility] [id number] [place] [address] 02488- 3678 Apr, [facility] [id number] [place] [address] 38619- 0433 Mar, [facility] [id number] [place] [address] 91057- 1485 Mar, [facility] [id number] [place] [address] 59233- 6469 Mar, Left anterior shoulder pain M25.512 [facility] [id number] [place] [address] 20826- 6564 Mar, Left anterior shoulder pain M25.512 ; Chronic pain syndrome G89.4 and Chronic renal insufficiency, stage 1 N18.1 [facility] [id number] [place] [address] 26629- 3410 Mar, [facility] [id number] [place] [address] 76136- 6984 Feb, [facility] [id number] [place] [address] 80232- 1041 Feb, [facility] [id number] [place] [address] 94804- 5314 Feb, [facility] [id number] [place] [address] 66614- 5156 Feb, Encounter for immunization Z23 [facility] [id number] [place] [address] 02791- 6750 Feb, [facility] [id number] [place] [address] 26087- 9489 Feb, [facility] [id number] [place] [address] 55589- 7551 Feb, Chronic pain syndrome G89.4 ; Chronic renal insufficiency, stage 1 N18.1 ; Migraine without aura and with status migrainosus, not intractable G43.001 ; Gastroesophageal reflux disease without esophagitis K21.9 ; Mixed hyperlipidemia E78.2 and 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 [facility] [address] [address]- 6343 Jan, [facility] [id number] [place] [address] 27901- 1514 Nov, Chronic pain syndrome G89.4 ; Chronic renal insufficiency, stage 1 N18.1 ; Migraine without aura and with status migrainosus, not intractable G43.001 and Gastroesophageal reflux disease without esophagitis K21.9 [facility] [id number] [place] [address] 01715- 6600 October, [facility] [id number] [place] [address] 66036- 0998 October, [facility] [id number] [place] [address] 78087- 9052 Sep, [facility] [id number] [place] [address] 09725- 6804 Sep, Back pain at L4-L5 level M54.5 and Compression fracture T14.8 [facility] [id number] [place] [address] 26894- 2717 Aug, [facility] [id number] [place] [address] 53610- 3837 Aug, [facility] [address] [place] [address] 09226- 8729 Aug, Back pain at L4-L5 level M54.5 and Compression fracture T14.8 [facility] [id number] [place] [address] 45687- 4838 Aug, Rib pain on right side R07.81 ; Right hip pain M25.551 and Lumbar pain M54.5 [facility] [id number] [place] [address] 75109- 5804 Jul, [facility] [address] [place] [address] 23226- 1165 Jul, [facility] [id number] [address]- 4785 Jul, Chronic pain syndrome G89.4 ; Chronic renal insufficiency, stage 1 N18.1 ; Mixed hyperlipidemia E78.2 and Scleritis, left H15.002 [facility] [address] [address]- 0990 Jun, [facility] [id number] [place] [address] 37214- 4488 May, [facility] [id number] [place] [address] 01184- 5953 Apr, [facility] [id number] [place] [address] 65478- 2845 Apr, [facility] [id number] [place] [address] 92971- 5200 Apr, [facility] [id number] [place] [address] 65368- 4285 Mar, [facility] [id number] [place] [address] 04372- 0297 Mar, Chronic renal insufficiency, stage 1 N18.1 [facility] [address] [place] [address] 49324- 8934 Mar, Arthritis M19.90 ; Encounter for immunization Z23 ; Chronic pain syndrome G89.4 ; Chronic renal insufficiency, stage 1 N18.1 ; Gastroesophageal reflux disease without esophagitis K21.9 and Mixed hyperlipidemia E78.2 [facility] [address] [address]- 0147 Mar, [facility] [id number] [place] [address] 15030- 5697 Feb, [facility] [address] [address]- 1466 Feb, [facility] [address] [place] [address] 87728- 2622 Dec, [facility] [address] [address]- 8260 Dec, Unspecified myalgia and myositis 729.1 ; Sacroiliitis, not elsewhere classified 720.2 ; Headache 784.0 ; Renal insufficiency 593.9 ; Vitamin D deficiency 268.9 ; Fatigue 780.79 and Edema 782.3 [facility] [id number] [place] [address] 78907- 6378 Dec, [facility] [id number] [place] [address] 15532- 1180 Dec, [facility] [id number] [place] [address] 55978- 7541 Dec, [facility] [id number] [place] [address] 92395- 3909 Dec, [facility] [id number] [place] [address] 09028- 3125 Dec, [facility] [address] [place] [address] 14128- 8589 Nov, [facility] [id number] [place] [address] 37497- 1241 Nov, [facility] [address] [address]- 8291 Nov, [facility] [id number] [place] [address] 37475- 0330 Nov, Unspecified myalgia and myositis 729.1 ; Nausea alone 787.02 ; Sacroiliitis, not elsewhere classified 720.2 ; Headache 784.0 and Renal insufficiency 593.9 [facility] [address] [place] [address] 79839- 8942 October, [facility] [address] [address]- 4792 October, [facility] [id number] [place] [address] [place] [address]- 4233 14 Sep, 2014 [facility] [place] [facility] [address] [id number] [place] [address]- 9244 13 Sep, 2014 [facility] [place] [facility] [address] [id number] [place] [address]- 0556 30 Aug, 2014 [facility] [place] [facility] [address] [id number] [place] [address]- 3376 30 Aug, 2014 [facility] [place] [facility] [address] [id number] [place] [address]- 8545 20 Aug, 2014 [facility] [place] [facility] [address] [id number] [place] [address]- 2687 20 Aug, 2014 [facility] [place] [facility] [address] [id number] [place] [address]- 9292 20 Aug, 2014 [facility] [place] [facility] [address] [id number] [place] [address]- 9551 20 Aug, 2014 [facility] [place] [facility] [address] [id number] [place] [address]- 1026 13 Aug, 2014 [facility] [place] [facility] [address] [id number] [place] [address]- 1728 13 Aug, 2014 [facility] [place] [facility] [address] [id number] [place] [address]- 3248 13 Aug, 2014 [facility] [place] [facility] [address] [id number] [place] [address]- 5712 13 Aug, 2014 [facility] [place] [facility] [address] [id number] [place] [address]- 6885 11 Aug, 2014 [facility] [place] [facility] [address] [id number] [place] [address]- 2205 11 Aug, 2014 [facility] [place] [facility] [address] [id number] [place] [address]- 1018 05 Aug, 2014 [facility] [place] [facility] [address] [id number] [place] [address]- 6796 05 Aug, 2014 [facility] [place] [facility] [address] [id number] [place] [address]- 9895 Aug, 2014 [facility] [place] [facility] [address] [id number] [place] [address]- 6905 Aug, 2014 [facility] [place] [facility] [address] [id number] [place] [address]- 3904 Jul, 2014 [facility] [place] [facility] [address] [id number] [place] [address]- 0326 Jul, 2014 [facility] [place] [facility] [address] [id number] [place] [address]- 8952 Jul, 2014 [facility] [place] [facility] [address] [id number] [place] [address]- 3582 Jul, 2014 [facility] [place] [facility] [address] [facility] [id number] [place] [address]- 5807 Jul, 2014 [facility] [place] [facility] [address] [facility] [id number] [place] [address]- 2648 Jul, 2014 [facility] [place] [facility] [address] [facility] [id number] [place] [address]- 5859 Jul, 2014 [facility] [place] [facility] [address] [facility] [id number] [place] [address]- 6094 Jul, 2014 [facility] [place] [facility] [address] [facility] [id number] [place] [address]- 2643 Jul, 2014 [facility] [place] [facility] [address] [facility] [id number] [place] [address]- 7467 Jul, 2014 [facility] [place] [facility] [address] [facility] [id number] [place] [address]- 4708 Jul, 2014 [facility] [place] [facility] [address] [id number] [place] [address]- 4351 Jul, 2014 [facility] [place] [facility] [address] [facility] [id number] [place] [address]- 4281 Jul, 2014 [facility] [place] [facility] [address] [facility] [id number] [place] [address]- 2903 Jul, [facility] [address] [id number] [place] [address]- 5257 Jul, [facility] [place] [facility] [address] [id number] [place] [address]- 3266 Jul, [facility] [place] [facility] [address] [id number] [place] [address]- 2210 Jun, [facility] [place] [facility] [address] [id number] [place] [address]- 7598 Jun, [facility] [place] [facility] [address] [id number] [place] [address]- 1215 Jun, [facility] [place] [facility] [address] [id number] [place] [address]- 1411 Jun, [facility] [place] [facility] [address] [id number] [place] [address]- 6422 Jun, [facility] [place] [facility] [address] [id number] [place] [address]- 0963 Jun, [facility] [place] [facility] [address] [id number] [place] [address]- 0423 Jun, [facility] [place] [facility] [address] [id number] [place] [address]- 9190 Jun, [facility] [place] [facility] [address] [id number] [place] [address]- 4262 Jun, [facility] [place] [facility] [address] [id number] [place] [address]- 2063 Jun, [facility] [place] [facility] [address] [id number] [place] [address]- 9412 Jun, [facility] [place] [facility] [address] [id number] [place] [address]- 9166 Jun, [facility] [place] [facility] [address] [id number] [place] [address]- 3513 May, [facility] [place] [facility] [address] [id number] [place] [address]- 2042 29 May, 2014 [facility] [place] [facility] [address] [id number] [place] [address] May, [facility] [place] [facility] [address] [id number] [place] [address] May, [facility] [place] [facility] [address] [id number] [place] [address] 18 May, 2014 [facility] [place] [facility] [address] [id number] [place] [address] 16 May, 2014 [facility] [place] [facility] [address] [id number] [place] [address] 15 May, 2014 [facility] [place] [facility] [address] [id number] [place] [address] 12 May, 2014 [facility] [place] [facility] [address] [id number] [place] [address] May, [facility] [place] [facility] [address] [id number] [place] [address] May, [facility] [place] [facility] [address] [id number] [place] [address] May, [facility] [place] [facility] [address] [id number] [place] [address] May, [facility] [place] [facility] [address] [id number] [place] [address] May, [facility] [place] [facility] [address] [id number] [place] [address] May, [facility] [place] [facility] [address] [id number] [place] [address] May, [facility] [place] [facility] [address] [id number] [place] [address] May, [facility] [place] [facility] [address] [id number] [place] [address] May, [facility] [place] [facility] [address] [id number] [place] [address] May, [facility] [place] [facility] [address] [id number] [place] [address] Apr, [facility] [place] [facility] [address] [id number] [place] [address] Apr, [facility] [place] [facility] [address] [id number] [place] [address] Apr, [facility] [place] [facility] [address] [id number] [place] [address] Apr, [facility] [place] [facility] [address] [address] [id number] [place] [address] Apr, [facility] [place] [facility] [address] [id number] [place] [address] 8858 Apr, [facility] [place] [facility] [address] [id number] [place] [address] 4926 Apr, [facility] [place] [facility] [address] [id number] [place] [address] 9247 Apr, [facility] [place] [facility] [address] [id number] [place] [address] 3226 Mar, [facility] [place] [facility] [address] [id number] [place] [address]- 4984 Mar, [facility] [place] [facility] [address] [id number] [place] [address] 3198 14 Mar, 2014 [facility] [place] [facility] [address] [id number] [place] [address]- 5044 30 Feb, 2014 [facility] [place] [facility] [address] [id number] [place] [address]- 5184 30 Feb, 2014 [facility] [place] [facility] [address] [id number] [place] [address]- 5523 26 Feb, 2014 [facility] [place] [facility] [address] [id number] [place] [address] 3173 26 Feb, 2014 [facility] [place] [facility] [address] [id number] [facility] [place] [address] 49[address] Feb, [facility] [place] [facility] [address] [id number] [place] [address] 2546 Feb, [facility] [place] [facility] [address] [id number] [place] [address]- 6586 Feb, [facility] [place] [facility] [address] [id number] [place] [address]- 5581 Feb, [facility] [place] [facility] [address] [id number] [place] [address] 1908 Jan, [facility] [place] [facility] [address] [id number] [place] [address]- 6020 Jan, [facility] [place] [facility] [address] [id number] [place] [address]- 5585 Jan, [facility] [place] [facility] [address] [id number] [place] [address]- 3072 Jan, [facility] [place] [facility] [address] [id number] [place] [address]- 4877 Jan, [facility] [place] [facility] [address] [id number] [place] [address]- 3804 Jan, [facility] [place] [facility] [address] [id number] [place] [address]- 9076 Dec, [facility] [place] [facility] [address] [id number] [place] [address]- 4987 Dec, [facility] [place] [facility] [address] [id number] [place] [address]- 6612 Dec, [facility] [place] [facility] [address] [id number] [place] [address]- 7215 Dec, [facility] [place] [facility] [address] [id number] [place] [address]- 6795 Nov, [facility] [place] [facility] [address] [id number] [place] [address]- 4022 Nov, [facility] [place] [facility] [address] [id number] [place] [address]- 6176 Nov, [facility] [place] [facility] [address] [id number] [place] [address]- 1455 Nov, [facility] [place] [facility] [address] [id number] [place] [address]- 9212 Nov, [facility] [place] [facility] [address] [id number] [place] [address]- 2774 Nov, [facility] [place] [facility] [address] [id number] [place] [address]- 3879 Nov, [facility] [place] [facility] [address] [id number] [place] [address]- 6498 Nov, [facility] [place] [facility] [address] [id number] [place] [address] 1837 Nov, [facility] [place] [facility] [address] [id number] [place] [address]- 1064 Nov, [facility] [place] [facility] [address] [id number] [place] [address]- 7284 Nov, [facility] [place] [facility] [address] [id number] [place] [address] 8754 Nov, [facility] [place] [facility] [address] [id number] [place] [address]- 9478 Nov, [facility] [place] [facility] [address] [id number] [place] [address] 7016 Nov, [facility] [place] [facility] [address] [id number] [place] [address]- 2033 Nov, [facility] [place] [facility] [address] [id number] [place] [address]- 2267 Nov, [facility] [place] [facility] [address] [id number] [place] [address]- 6343 Nov, [facility] [place] [facility] [address] [id number] [place] [address]- 5704 Nov, [facility] [place] [facility] [address] [id number] [place] [address]- 0874 Nov, [facility] [place] [facility] [address] [id number] [place] [address]- 7543 Nov, [facility] [place] [facility] [address] [id number] [place] [address]- 1143 Nov, [facility] [place] [facility] [address] [id number] [place] [address]- 7399 Nov, [facility] [place] [facility] [address] [id number] [place] [address]- 7117 Nov, [facility] [place] [facility] [address] [id number] [place] [address]- 8130 Nov, [facility] [place] [facility] [address] [id number] [place] [address]- 2613 Nov, [facility] [place] [facility] [address] [id number] [place] [address]- 2560 Nov, [facility] [place] [facility] [address] [id number] [place] [address]- 3409 October, [facility] [place] [facility] [address] [id number] [place] [address]- 6465 October, [facility] [place] [facility] [address] [id number] [place] [address]- 2884 October, [facility] [place] [facility] [address] [id number] [place] [address]- 2147 October, [facility] [place] [facility] [address] [id number] [place] [address]- 9626 October, [facility] [place] [facility] [address] [id number] [place] [address]- 0894 October, [facility] [place] [facility] [address] [id number] [place] [address]- 0735 October, [facility] [address] [id number] [place] [address]- 8171 October, [facility] [address] [id number] [place] [address]- 7734 October, [facility] [place] [facility] [address] [id number] [place] [address]- 4274 October, [facility] [address] [id number] [place] [address]- 2326 October, [facility] [place] [facility] [address] [id number] [place] [address]- 6036 October, [facility] [address] [id number] [place] [address]- 5135 October, [facility] [address] [id number] [place] [address]- 2485 October, [facility] [address] [id number] [place] [address]- 3265 October, [facility] [place] [facility] [address] [id number] [place] [address]- 5218 October, [facility] [place] [facility] [address] [id number] [place] [address]- 7575 October, [facility] [place] [facility] [address] [id number] [place] [address]- 7305 Sep, [facility] [place] [facility] [address] [id number] [place] [address]- 0929 Sep, [facility] [place] [facility] [address] [id number] [place] [address]- 7198 Sep, [facility] [place] [facility] [address] [id number] [place] [address]- 2435 Sep, [facility] [place] [facility] [address] [id number] [place] [address]- 4971 Sep, [facility] [place] [facility] [address] [id number] [place] [address]- 1520 Sep, [facility] [place] [facility] [address] [id number] [place]99 Sep, [facility] [place] [facility] [address] [id number] [place] [address]- 3407 Aug, [facility] [place] [facility] [address] [id number] [place] [address]- 2627 Aug, [facility] [place] [facility] [address] [id number] [place] [address]- 2946 Aug, [facility] [place] [facility] [address] [facility] [id number] [place] [address]- 3709 Aug, [facility] [place] [facility] [address] [facility] [id number] [place] [address]- 9758 Aug, [facility] [place] [facility] [address] [facility] [id number] [place] [address]- 4371 Aug, [facility] [place] [facility] [address] [id number] [place] [address]- 9395 Jul, [facility] [place] [facility] [address] [facility] [id number] [place] [address]- 1619 Jul, [facility] [place] [facility] [address] [id number] [place] [address]- 8986 Jul, [facility] [place] [facility] [address] [facility] [id number] [place] [address]- 0005 Jul, [facility] [place] [facility] [address] [id number] [place] [address]- 7439 Jul, [facility] [place] [facility] [address] [id number] [place] [address]- 0486 Jul, [facility] [place] [facility] [address] [facility] [id number] [place] [address]- 4495 Jul, [facility] [place] [facility] [address] [id number] [place] [address]- 2014 17 Jul, 2013 [facility] [place] [facility] [address] [id number] [place] [address]- 8068 Jul, [facility] [place] [facility] [address] [id number] [place] [address]- 8061 Jul, [facility] [place] [facility] [address] [id number] [place] [address]- 2438 Jun, [facility] [place] [facility] [address] [id number] [place] [address]- 2001 Jun, [facility] [place] [facility] [address] [id number] [place] [address]- 7109 Jun, [facility] [place] [facility] [address] [id number] [place] [address]- 1512 Jun, [facility] [place] [facility] [address] [id number] [place] [address]- 8932 Jun, [facility] [place] [facility] [address] [id number] [place] [address]- 5734 Jun, [facility] [place] [facility] [address] [id number] [place] [address]- 2735 Jun, [facility] [place] [facility] [address] [facility] [id number] [place] [address]- 4436 May, [facility] [place] [facility] [address] [id number] [place] [address]- 1901 May, [facility] [place] [facility] [address] [id number] [place] [address]- 1914 May, [facility] [place] [facility] [address] [id number] [place] [address]- 9424 May, [facility] [place] [facility] [address] [id number] [place]84 May, [facility] [place] [facility] [address] [id number] [place] [address]- 6883 May, [facility] [place] [facility] [address] [id number] [place] [address]- 0524 Apr, [facility] [place] [facility] [address] [id number] [place] [address]- 1166 Apr, [facility] [place] [facility] [address] [facility] [id number] [place] [address]- 4519 Apr, [facility] [place] [facility] [address] [id number] [place] [address]- 2562 Apr, [facility] [place] [facility] [address] [id number] [place] [address]- 3499 15 Apr, 2013 [facility] [place] [facility] [address] [facility] [id number] [place] [address]- 1783 14 Apr, 2013 [facility] [place] [facility] [address] [facility] [id number] [place] [address]- 6717 Apr, [facility] [place] [facility] [address] [facility] [id number] [place] [address]- 3437 Apr, [facility] [place] [facility] [address] [facility] [id number] [place] [address]- 2965 Apr, [facility] [place] [facility] [address] [facility] [id number] [place] [address]- 1646 Apr, [facility] [place] [facility] [address] [facility] [id number] [place] [address]- 6070 Apr, [facility] [place] [facility] [address] [facility] [id number] [place] [address]- 0851 Apr, [facility] [place] [facility] [address] [id number] [place] [address]- 7141 Apr, [facility] [place] [facility] [address] [facility] [id number] [place] [address]- 0324 Mar, [facility] [place] [facility] [address] [facility] [id number] [place] [address]- 7149 Mar, [facility] [place] [facility] [address] [id number] [place] [address]- 5699 29 Mar, 2012 [facility] [place] [facility] [address] [id number] [place] [address]- 2795 28 Mar, 2012 [facility] [place] [facility] [address] [id number] [place] [address]- 1171 28 Mar, 2012 [facility] [place] [facility] [address] [id number] [place] [address]- 8977 16 Mar, 2012 [facility] [place] [facility] [address] [id number] [place] [address]- 4846 16 Mar, 2012 [facility] [place] [facility] [address] [id number] [place] [address]- 0971 15 Mar, 2012 [facility] [place] [facility] [address] [id number] [place] [address]- 1111 15 Mar, 2012 [facility] [place] [facility] [address] [id number] [place] [address]- 6970 15 Mar, 2012 [facility] [place] [facility] [address] [id number] [place] [address]- 1919 15 Mar, 2012 [facility] [place] [facility] [address] [id number] [place] [address]- 5833 13 Mar, 2012 [facility] [place] [facility] [address] [id number] [place] [address]- 6968 10 Mar, 2012 [facility] [place] [facility] [address] [id number] [place] [address]- 2811 10 Mar, 2012 [facility] [place] [facility] [address] [id number] [place] [address]- 4046 2012 [facility] [place] [facility] [address] [id number] [place] [address]- 8148 03 Mar, 2012 [facility] [place] [facility] [address] [id number] [place] [address]- 9787 27 Feb, 2012 [facility] [place] [facility] [address] [id number] [place] [address]- 1299 26 Sep, 2012 [facility] [place] [facility] [address] [id number] [place] [address] 2540 25 Sep, 2012 [facility] [place] [facility] [address] [id number] [place] [address] 2549 24 Sep, 2012 [facility] [place] [facility] [address] [id number] [place] [address]- 1870 23 Sep, 2012 [facility] [place] [facility] [address] [id number] [place] [address]- 6593 20 Sep, 2012 [facility] [place] [facility] [address] [id number] [place] [address]- 0145 18 Sep, 2012 [facility] [place] [facility] [address] [id number] [place] [address]- 4820 17 Feb, 2012 [facility] [place] [facility] [address] [id number] [place] [address]- 2189 11 Feb, 2012 [facility] [place] [facility] [address] [id number] [place] [address]- 1781 09 Sep, 2012 [facility] [place] [facility] [address] [id number] [place] [address]- 5594 09 Sep, 2012 [facility] [place] [facility] [address] [id number] [place] [address]- 4618 08 Sep, 2012 [facility] [place] [facility] [address] [id number] [place] [address]- 4082 06 Sep, 2012 [facility] [place] [facility] [address] [id number] [place] [address]- 1113 06 Sep, 2012 [facility] [place] [facility] [address] [id number] [place] [address]- 5364 04 Feb, 2012 [facility] [place] [facility] [address] [id number] [place] [address]- 2331 26 Jan, 2012 [facility] [place] [facility] [address] [id number] [place] [address]- 6333 23 Jan, 2013 [facility] [place] [facility] [address] [id number] [place] [address]- 9933 Jan, [facility] [address] [id number] [place] [address]- 4739 Jan, [facility] [place] [facility] [address] [id number] [place] [address]- 1494 Jan, [facility] [place] [facility] [address] [id number] [place] [address]- 2937 Jan, [facility] [place] [facility] [address] [id number] [place] [address]- 9279 Jan, [facility] [place] [facility] [address] [id number] [place] [address]- 2131 Jan, [facility] [place] [facility] [address] [id number] [place] [address]- 4597 Jan, [facility] [place] [facility] [address] [id number] [place] [address]- 0164 Dec, [facility] [place] [facility] [address] [id number] [place] [address]- 6295 Dec, [facility] [place] [facility] [address] [id number] [place] [address]- 3681 Dec, [facility] [place] [facility] [address] [id number] [place] [address]- 1352 Dec, [facility] [place] [facility] [address] [id number] [place] [address]- 1439 Dec, [facility] [place] [facility] [address] [id number] [place] [address]- 4470 Dec, [facility] [place] [facility] [address] [id number] [place] [address]- 8627 Dec, [facility] [place] [facility] [address] [id number] [place] [address]- 0796 Dec, [facility] [place] [facility] [address] [id number] [place] [address]- 3973 Nov, [facility] [place] [facility] [address] [id number] [place] [address]- 8597 28 Nov, 2012 [facility] [place] [facility] [address] [id number] [place] [address]- 2135 25 Nov, 2012 [facility] [place] [facility] [address] [id number] [place] [address]- 8377 24 Nov, 2012 [facility] [place] [facility] [address] [id number] [place] [address]- 5098 Nov, [facility] [place] [facility] [address] [id number] [place] [address]- 4949 18 Nov, 2012 [facility] [place] [facility] [address] [id number] [place] [address]- 5173 18 Nov, 2012 [facility] [place] [facility] [address] [id number] [place] [address]- 1135 17 Nov, 2012 [facility] [place] [facility] [address] [id number] [place] [address]- 1090 14 Nov, 2012 [facility] [place] [facility] [address] [id number] [place] [address]- 1363 Nov, [facility] [place] [facility] [address] [id number] [place] [address]- 7015 12 Nov, 2012 [facility] [place] [facility] [address] [id number] [place] [address]- 9099 08 Nov, 2012 [facility] [place] [facility] [address] [id number] [place] [address]- 5685 05 Nov, 2012 [facility] [place] [facility] [address] [id number] [place] [address]- 2610 04 Nov, 2012 [facility] [place] [facility] [address] [id number] [place] [address]- 2662 04 Nov, 2012 [facility] [place] [facility] [address] [id number] [place] [address]- 5219 03 Nov, 2012 [facility] [place] [facility] [address] [id number] [place] [address]- 4656 Nov, [facility] [address] [id number] [place] [address]- 1637 Nov, [facility] [address] [id number] [place] [address]- 7682 October, [facility] [address] [id number] [place] [address] October, [facility] [address] [id number] [place] [address] October, [facility] [address] [id number] [place] [address] October, [facility] [address] [id number] [place] [address] October, [facility] [address] [id number] [place] [address] October, [facility] [address] [id number] [place] [address] October, [facility] [address] [id number] [place] [address] October, [facility] [address] [id number] [place] [address] Sep, [facility] [address] [id number] [place] [address] Sep, [facility] [place] [facility] [address] [id number] [place] [address] Sep, [facility] [place] [facility] [address] [id number] [place] [address] Sep, [facility] [place] [facility] [address] [id number] [place] [address] 74[address] Sep, [facility] [place] [facility] [address] [id number] [place] [address] Sep, [facility] [place] [facility] [address] [id number] [place] [address]- 1575 05 Sep, 2012 [facility] [address] [id number] [place] [address] 29 Aug, 2012 [facility] [address] [id number] [place] [address] Aug, [facility] [address] [id number] [place] [address] Aug, [facility] [address] [id number] [place] [address] 9[address] Aug, [facility] [address] [id number] [place] [address] Aug, [facility] [address] [id number] [place] [address] 4758 Aug, [facility] [address] [id number] [place] [address] 8588 Aug, [facility] [address] [id number] [place] [address] 4581 Aug, [facility] [address] [id number] [place] [address] 1156 Jul, [facility] [address] [id number] [place] [address] Jul, [facility] [address] [id number] [place] [address] Jun, [facility] [address] [id number] [place] [address] 1417 Jun, [facility] [address] [id number] [place] [address] Jun, [facility] [address] [id number] [place] [address] Jun, [facility] [address] [id number] [place] [address] 97[address] Jun, [facility] [place] [facility] [address] [id number] [place] [address] May, [facility] [place] [facility] [address] [id number] [place] [address] 9396 May, [facility] [place] [facility] [address] [id number] [place] [address] 5[address] May, [facility] [place] [facility] [address] [id number] [place] [address]- 2166 May, [facility] [place] [facility] [address] [id number] [place] [address] May, [facility] [place] [facility] [address] [id number] [place] [address]- 16[address] May, [facility] [place] [facility] [address] [id number] [place] [address]- [address]208 May, [facility] [place] [facility] [address] [id number] [place] [address]- 8035 May, [facility] [place] [facility] [address] [id number] [place] [address]- 45[address] Apr, [facility] [place] [facility] [address] [id number] [place] [address]- 4410 Apr, [facility] [place] [facility] [address] [id number] [place] [address]- 8477 Apr, [facility] [place] [facility] [address] [id number] [place] [address]- 7147 Apr, [facility] [place] [facility] [address] [id number] [place] [address]- 9417 Apr, [facility] [place] [facility] [address] [id number] [place] [address] Apr, [facility] [place] [facility] [address] [id number] [place] [address] 16 Apr, 2012 [facility] [place] [facility] [address] [id number] [place] [address] 16 Apr, 2012 [facility] [place] [facility] [address] [id number] [place] [address]- [address] 15 Apr, 2012 [facility] [place] [facility] [address] [id number] [place] [address] 15 Apr, 2012 [facility] [place] [facility] [address] [id number] [place] [address]- [address] Apr, [facility] [place] [facility] [address] [id number] [place] [address]- 0901 Apr, [facility] [place] [facility] [id number] [place] [address], [place] [address]- [address] Apr, [facility] [place] [facility] [address] [id number] [place] [address] 80[address] Apr, [facility] [place] [facility] [address] [id number] [place] [address] Apr, [facility] [place] [facility] [address] [id number] [place] [address] 9843 Apr, [facility] [place] [facility] [address] [facility] [id number] [place] [address] 3709 Apr, [facility] [place] [facility] [address] [facility] [id number] [place] [address] Apr, [facility] [place] [facility] [address] [facility] [id number] [place] [address] 80[address] Mar, [facility] [place] [facility] [address] [id number] [place] [address] 2550 Mar, [facility] [place] [facility] [address] [id number] [address] Mar, [facility] [place] [facility] [address] [facility] [id number] [place] [address] Mar, [facility] [place] [facility] [address] [facility] [id number] [address] 17 Mar, 2012 [facility] [place] [facility] [address] [id number] [place] [address] 2936 15 Mar, 2012 [facility] [place] [facility] [address] [id number] [place] [address] 1056 15 Mar, 2012 [facility] [place] [facility] [address] [id number] [place] [address] 2546 Mar, [facility] [place] [facility] [address] [id number] [place] [address] 8356 Mar, [facility] [place] [facility] [address] [id number] [place] [address] 3726 Mar, [facility] [place] [facility] [address] [id number] [place] [address] 8967 Mar, [facility] [place] [facility] [address] [id number] [place] [address] 2242 27 Feb, 2012 [facility] [place] [facility] [address] [id number] [place] [address] 0886 26 Feb, 2012 [facility] [place] [facility] [address] [id number] [place] [address]- 0984 12 Feb, 2012 [facility] [place] [facility] [address] [id number] [place] [address]- 5972 30 Jan, 2012 [facility] [place] [facility] [address] [id number] [place] [address] 2543 29 Jan, 2012 [facility] [place] [facility] [address] [id number] [place] [address]- 2546 Jan, [facility] [place] [facility] [address] [id number] [place] [address] 2543 Jan, [facility] [place] [facility] [address] [id number] [place] [address] 2546 Jan, [facility] [place] [facility] [address] [id number] [place] [address] 2546 16 Jan, 2012 [facility] [place] [facility] [address] [id number] [place] [address]- 7456 16 Jan, 2012 [facility] [place] [facility] [address] [id number] [place] [address]- 0902 Jan, [facility] [place] [facility] [address] [id number] [place] [address]- 3296 15 Jan, 2012 [facility] [place] [facility] [address] [id number] [place] [address] 3136 Jan, [facility] [place] [facility] [address] [id number] [place] [address] 6106 Dec, [facility] [place] [facility] [address] [id number] [place] [address]- 3258 Dec, [facility] [place] [facility] [address] [id number] [place] [address]- 4279 Dec, [facility] [place] [facility] [address] [id number] [place] [address]- 1831 Dec, [facility] [place] [facility] [address] [id number] [place] [address]- 4377 24 Dec, 2011 [facility] [place] [facility] [address] [id number] [place] [address]- 1076 Dec, [facility] [place] [facility] [address] [id number] [place] [address]- 3593 18 Dec, 2011 [facility] [place] [facility] [address] [id number] [place] [address]- 1141 17 Dec, 2011 [facility] [place] [facility] [address] [id number] [place] [address]- 3587 14 Dec, 2011 [facility] [place] [facility] [address] [id number] [place] [address]- 5802 12 Dec, 2011 [facility] [place] [facility] [address] [id number] [place] [address]- 4221 Dec, [facility] [place] [facility] [address] [id number] [place] [address] 9141 Dec, [facility] [place] [facility] [address] [id number] [place] [address]- 4469 Dec, [facility] [place] [facility] [address] [id number] [place] [address]- 4064 Nov, [facility] [place] [facility] [address] [id number] [place] [address]- 8189 Nov, [facility] [place] [facility] [address] [id number] [place] [address]- 9513 Nov, [facility] [place] [facility] [address] [id number] [place] [address]- 5242 Nov, [facility] [place] [facility] [address] [id number] [place] [address]- 3022 Nov, [facility] [place] [facility] [address] [id number] [place] [address]- 7566 Nov, [facility] [address] [id number] [place] [address]- 0838 October, [facility] [address] [id number] [place] [address]- 3925 October, [facility] [place] [facility] [address] [id number] [place] [address]- 1362 October, [facility] [address] [id number] [place] [address] 7214 October, [facility] [place] [facility] [address] [id number] [place] [address]- 3754 October, [facility] [place] [facility] [address] [id number] [place] [address]- 2053 October, [facility] [place] [facility] [address] [id number] [place] [address]- 9334 October, [facility] [place] [facility] [address] [id number] [place] [address]- 9120 Sep, [facility] [place] [facility] [address] [id number] [place] [address]- 6614 Sep, [facility] [place] [facility] [address] [id number] [place] [address]- 7441 Sep, [facility] [address] [id number] [place] [address]- 5049 Sep, [facility] [address] [id number] [place] [address]- 2538 Sep, [facility] [address] [id number] [place] [address]- 3130 20 Sep, 2011 [facility] [address] [id number] [place] [address]- 9978 16 Sep, 2011 [facility] [address] [id number] [place] [address]- 7069 Sep, [facility] [address] [id number] [place] [address]- 6136 Sep, [facility] [address] [id number] [place] [address]- 5683 Sep, [facility] [address] [id number] [place] [address]- 4553 Sep, [facility] [address] [id number] [place] [address]- 1391 Sep, [facility] [address] [id number] [place] [address]- 3513 15 Aug, 2011 [facility] [place] [facility] [address] [id number] [place] [address]- 0133 Aug, [facility] [place] [facility] [address] [id number] [place] [address]- 6092 Aug, [facility] [place] [facility] [address] [id number] [place] [address]- 8309 Aug, [facility] [place] [facility] [address] [id number] [place] [address]- 1246 Jul, [facility] [place] [facility] [address] [id number] [place] [address] 2546 Jul, [facility] [address] [id number] [place] [address] 2546 Jul, [facility] [place] [facility] [address] [id number] [place] [address] 2546 Jul, [facility] [place] [facility] [address] [id number] [place] [address]- 5336 Jul, [facility] [place] [facility] [address] [id number] [place] [address] 2546 Jul, [facility] [address] [id number] [place] [address]- 8906 Jul, [facility] [place] [facility] [address] [id number] [place] [address] 2546 Jul, [facility] [address] [id number] [place] [address]- 4726 Jul, [facility] [address] [id number] [place] [address]- 5879 Jul, [facility] [place] [facility] [address] [id number] [place] [address]- 0066 Jul, [facility] [address] [id number] [place] [address]- 9536 Jul, [facility] [place] [facility] [address] [id number] [place] [address] 2546 Jul, [facility] [place] [facility] [address] [id number] [place] [address] 2546 Jun, [facility] [place] [facility] [address] [id number] [place] [address] 2546 Jun, [facility] [place] [facility] [address] [id number] [place] [address] 2546 Jun, [facility] [place] [facility] [address] [id number] [place] [address]- 9217 Jun, [facility] [address] [id number] [place] [address]- 9944 Jun, [facility] [place] [facility] [address] [id number] [place] [address]- 1713 Jun, [facility] [place] [facility] [address] [id number] [place] [address]- 1268 Jun, [facility] [place] [facility] [address] [id number] [place] [address]- 1765 Jun, [facility] [place] [facility] [address] [id number] [place] [address]- 0448 Jun, [facility] [place] [facility] [address] [id number] [place] [address]- 7644 Jun, [facility] [place] [facility] [address] [id number] [place] [address]- 8565 May, [facility] [place] [facility] [address] [id number] [place] [address]- 6993 May, [facility] [place] [facility] [address] [id number] [place] [address]- 9689 May, [facility] [place] [facility] [address] [id number] [place] [address]- 3508 May, [facility] [place] [facility] [address] [id number] [place] [address]- 9951 Apr, [facility] [place] [facility] [address] [id number] [address]- 4898 Apr, [facility] [place] [facility] [address] [id number] [place] [address]- 5559 Apr, [facility] [place] [facility] [address] [id number] [place] [address]- 8300 Apr, [facility] [place] [facility] [address] [id number] [place] [address]- 3288 Apr, [facility] [place] [facility] [address] [id number] [place] [address]- 9997 31 Mar, 2011 [facility] [address] [id number] [place] [address]- 6956 24 Mar, 2011 [facility] [place] [facility] [address] [id number] [place] [address]- 8926 18 Mar, 2011 [facility] [place] [facility] [address] [id number] [place] [address]- 5756 18 Mar, 2011 [facility] [place] [facility] [address] [id number] [place] [address]- 3364 28 May, 2010 [facility] [place] [facility] [address] [id number] [place] [address]- 5808 22 May, 2010 [facility] [place] [facility] [address] [id number] [place] [address]- 5359 17 May, 2010 [facility] [place] [facility] [address] [id number] [place] [address]- 1506 17 May, 2010 [facility] [place] [facility] [address] [id number] [place] [address]- 6177 15 May, 2010 [facility] [place] [facility] [address] [id number] [place] [address]- 0984 09 May, 2010 [facility] [place] [facility] [address] [facility] [id number] [place] [address]- 3153 08 May, 2010 [facility] [place] [facility] [address] [id number] [place] [address]- 4480 May, [facility] [place] [facility] [address] [id number] [place] [address]- 2540 29 Apr, 2010 [facility] [place] [facility] [address] [id number] [place] [address]- 5756 16 Apr, 2010 [facility] [place] [facility] [address] [facility] [id number] [place] [address]236 16 Apr, 2010 [facility] [place] [facility] [address] [facility] [id number] [place] [address] 15 Apr, 2010 [facility] [place] [facility] [id number] [address] 6716 Apr, [facility] [id number] [address]- 2746 Apr, [facility] [id number] [address]- 3756 Apr, [facility] [id number] [place] [address]- 4616 Apr, [facility] [id number] [address]- 1107 Mar, [facility] [id number] [place] [address]- 7936 Jan, [facility] [id number] [place] [address]- 8741 Nov, [facility] [id number] [place] [address]- 8697 October, [facility] [id number] [place] [address]26- 5794 Sep, [facility] [id number] [address]- 5320 Aug, [facility] [id number] [address]- 5031 Jul, [facility] [id number] [address]- 8006 Jun, IMMUNIZATIONS No Known Immunizations SOCIAL HISTORY Never Assessed REASON FOR VISIT Lyrica refill PLAN OF CARE VITAL SIGNS MEDICATIONS Medication Instructions Dosage Frequency Start Date End Date Duration Status Lyrica 100 mg Orally 2 times a day 1 capsule 12h 28 days Active RESULTS No Results PROCEDURES No Known [...] disorder, dependent personality disorder. Being seen by [facility] Medical History chonic pain since 1994 when [...]
--- OUTSIDE RECORDS SUMMARY | 2017-10-22 17:59 | XMS REPORT ---
Author HASEEB Valverde Organization [employer] Address Unknown Phone Unavailable Care Team Providers Care Mill Tender Name Role Phone HASEEB COOK CP [...] Instructions Start Date End Date Status Dosage Hydrocodone-Acetaminophen [facility] [address]-82 5-325 MG Orally 3 times a day prn- must last 30 days. 1-2 tablet as needed Results No Known Results Summary Purpose [employer] Submission
--- OUTSIDE RECORDS SUMMARY | 2017-10-22 17:59 | XMS REPORT ---
Author Author HASEEB COOK Organization [employer] Address Unknown Phone Unavailable Care Team Providers Care Air Compressor Engineer Name Role Phone HASEEB COOK CP Unavailable Allergies No Known Allergies Problems Problem Type Condition Code Onset Dates Condition Status Problem Mixed hyperlipidemia E78.2 Active Problem Cervical pain M54.2 Active Problem Back pain at L4-L5 level M54.5 Active Problem Compression fracture T14.8 Active Problem Migraine without aura and with status migrainosus, not intractable G43.001 Active Problem Chronic renal insufficiency, stage 1 N18.1 Active Problem Gastroesophageal reflux disease without esophagitis K21.9 Active Problem Arthritis M19.90 Active Problem Chronic pain syndrome G89.4 Active Medications No Known Medications Results No Known Results Summary Purpose [employer] Submission
--- OUTSIDE RECORDS SUMMARY | 2017-10-22 17:59 | XMS REPORT ---
Author Author HASEEB COOK Organization [employer] Address Unknown Phone Unavailable Care Team Providers Care Employment Consultant Name Role Phone HASEEB COOK CP Unavailable Allergies No Known Allergies Problems Problem Type Condition Code Onset Dates Condition Status Problem Cervical pain M54.2 Active Problem Compression fracture T14.8 Active Problem Arthritis M19.90 Active Problem Back pain at L4-L5 level M54.5 Active Problem Gastroesophageal reflux disease without esophagitis K21.9 Active Problem Mixed hyperlipidemia E78.2 Active Problem Chronic pain syndrome G89.4 Active Problem Chronic renal insufficiency, stage 1 N18.1 Active Medications Medication Code System Code Instructions Start Date End Date Status Dosage Lyrica [facility] [id number] 75MG appt needed for futher refills TAKE ONE CAPSULE BY MOUTH TWICE DAILY FOR NEUROPATHY/ANXIETY AND PAIN Results No Known Results Summary Purpose [employer] Submission
--- OUTSIDE RECORDS SUMMARY | 2017-10-22 17:59 | XMS REPORT ---
Author Author HASEEB COOK [facility] Address [address] [place] [address] Care Team Providers Care Sub Acute Care Nurse Name Role Phone HASEEB COOK Unavailable PROBLEMS Type Condition ICD9-CM Code KOR37-DV Code Onset Dates Condition Status SNOMED Code Problem Mixed hyperlipidemia E78.2 Active 987003136 Problem Chronic renal insufficiency, stage 1 N18.1 Active 753654340 Problem Gastroesophageal reflux disease without esophagitis K21.9 Active 807992217 Assessment Encounter for immunization Z23 Feb, Active 475234857 Problem Cervical pain M54.2 Active 85546245 Problem 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 46346620 Problem Migraine without aura and with status migrainosus, not intractable G43.001 Active 638271892 Problem Arthritis M19.90 Active 4824625 Problem Chronic pain syndrome G89.4 Active 187658113 Problem Back pain at L4-L5 level M54.5 Active 048766165 Problem Compression fracture T14.8 Active 491526984 ALLERGIES Unknown Allergies SOCIAL HISTORY No smoking Hx information available PLAN OF CARE VITAL SIGNS MEDICATIONS Unknown Medications RESULTS No Results PROCEDURES Procedure Date Ordered Related Diagnosis Body Site FLUARIX QUAD P-FREE 3 AND UP .50 2015Feb 23, 2016 SINGLE IMMUNIZATION ADMIN Feb 23, 2016 IMMUNIZATIONS Vaccine Route Administration Date Status FLUARIX QUAD P-FREE 3 AND UP .50 2015 IM Intramuscular Feb 23, 2016 Administered
--- OUTSIDE RECORDS SUMMARY | 2017-10-22 17:59 | XMS REPORT ---
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 27565037 Problem Migraine without aura and with status migrainosus, not intractable G43.001 Active 527782604 Problem Arthritis M19.90 Active 9337313 Problem Chronic pain syndrome G89.4 Active 744738419 Problem Back pain at L4-L5 level M54.5 Active 630795082 Problem Compression fracture T14.8 Active 301763620 ALLERGIES Unknown Allergies SOCIAL HISTORY No smoking Hx information available PLAN OF CARE VITAL SIGNS MEDICATIONS Medication Instructions Dosage Frequency Start Date End Date Duration Status Hydrocodone-Acetaminophen 5-325 MG Orally 2 times a day prn must last 28 days 1 tablet as needed Active RESULTS No Results PROCEDURES No Known procedures IMMUNIZATIONS No Known Immunizations
--- OUTSIDE RECORDS SUMMARY | 2017-10-22 18:00 | XMS REPORT ---
Author Author HASEEB COOK Organization 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 68037302 Problem Migraine without aura and with status migrainosus, not intractable G43.001 Active 707757835 Problem Arthritis M19.90 Active 3323499 Problem Chronic pain syndrome G89.4 Active 387510335 Problem Back pain at L4-L5 level M54.5 Active 875180524 Problem Compression fracture T14.8 Active 349609347 ALLERGIES Unknown Allergies SOCIAL HISTORY No smoking Hx information available PLAN OF CARE VITAL SIGNS MEDICATIONS Medication Instructions Dosage Frequency Start Date End Date Duration Status Lyrica 100 MG Orally 2 times a day 1 capsule 12h Active RESULTS No Results PROCEDURES No Known procedures IMMUNIZATIONS No Known Immunizations
--- OUTSIDE RECORDS SUMMARY | 2017-10-22 18:00 | XMS REPORT ---
Author Author HASEEB COOK Organization [employer] Address Unknown Phone Unavailable Care Team Providers Care Quality Worker Name Role Phone HASEEB COOK CP [...]
--- OUTSIDE RECORDS SUMMARY | 2017-10-22 18:01 | XMS REPORT ---
Author Author HASEEB COOK Organization [facility] Address [address] [place] [address] Care Team Providers Care Grounds Maintenance Manager Name Role Phone HASEEB COOK Unavailable PROBLEMS Type Condition ICD9-CM Code GNM72-OP Code Onset Dates Condition Status SNOMED Code Problem Arthritis M19.90 Active 2384060 Problem Mixed hyperlipidemia E78.2 Active 851995621 Problem Chronic pain syndrome G89.4 Active 663169201 Problem Chronic obstructive pulmonary disease (COPD) suggested by initial evaluation J44.9 Active 55839592 Problem Gastroesophageal reflux disease without esophagitis K21.9 Active 974236907 Problem 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 Being seen by [facility] Medical History chonic pain since 1994 [...]
--- OUTSIDE RECORDS SUMMARY | 2017-10-22 18:01 | XMS REPORT ---
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 Unknown Non Drug Allergy Feb, Unknown SOCIAL HISTORY No smoking Hx information available PLAN OF CARE VITAL SIGNS Height 64 in 2016-02-03 Weight 163.3 lbs 2016-02-03 Heart Rate 90 bpm 2016-02-03 Respiratory Rate 18 2016-02-03 BMI 28.03 kg/m2 2016-02-03 Blood pressure systolic 114 mmHg 2016-02-03 Blood pressure diastolic 76 mmHg 2016-02-03 MEDICATIONS Medication Instructions Dosage Frequency Start Date End Date Duration Status Promethazine HCl 25 MG Orally every 12 hrs prn nausea 1 tablet as needed 15 Active Imitrex 50 mg Orally Twice a day prn 1 tablet as needed Active Potassium Chloride 10 mEq started by Aayush 24h Dec, Active Xanax 1 mg 0.5 tablet by Oral route 2 times per day Dec, Active Ventolin HFA 90 mcg/actuation Inhalation every 4 hrs prn 2 puffs Nov, Active Carafate 1 GM 1 tablet on an empty stomach before meals 8h Active Hydrocodone-Acetaminophen 5-325 MG Orally 2 times a day prn 1 tablet as needed Active Topamax 100 mg take 1 tablet (50 mg) by oral route 2 times per day October, Active Lipitor 20 mg Orally Once a day 1 tablet by Oral route 1 time per day 24h 16 Jan, 2012 Active Crfxo-8-cats Ethyl Esters 1GM TAKE ONE CAPSULE BY MOUTH TWICE DAILY 30 Active Albuterol Sulfate (2.5 MG/3ML) 0.083% Inhalation 2 times a day 3 ml 12h 90 days Active Lyrica 100 MG Orally 2 times a day 1 capsule 12h Active Lexapro 20 mg 1 tablet by Oral route 1 time per day takes 1 1/2 tabs daily Jun, Active Seroquel XR 200 MG 200 Mg by Oral route 1 time per day once daily at night (300 mg) Dec, Active Nexium 40MG Orally Once a day 1 capsule 24h 30 Active Fluticasone Propionate 50MCG/AC USE ONE SPRAY(S) IN EACH NOSTRIL TWICE DAILY 30 Active Baclofen 10 MG Orally 2 times a day PRN 1 tablet with food or milk Active RESULTS Name Result Date Reference Range CBC 2016-02-03 WBC 8.8 3.4-10.8 RBC 5.09 3.77-5.28 Hemoglobin 14.8 11.1-15.9 Hematocrit 43.6 34.0-46.6 MCV 86 79-97 MCH 29.1 26.6-33.0 MCHC 33.9 31.5-35.7 RDW 14.4 12.3-15.4 Platelets 233 150-379 Neutrophils 54 Lymphs 37 Monocytes 8 Eos 1 Basos 0 Immature Cells Neutrophils (Absolute) 4.8 1.4-7.0 Lymphs (Absolute) 3.2 0.7-3.1 Monocytes(Absolute) 0.7 0.1-0.9 Eos (Absolute) 0.1 0.0-0.4 Baso (Absolute) 0.0 0.0-0.2 Immature Granulocytes 0 Immature Grans (Abs) 0.0 0.0-0.1 NRBC Hematology Comments: CMP 2016-02-03 Glucose, Serum 95 65-99 BUN 7 6-24 Creatinine, Serum 0.96 0.57-1.00 eGFR If NonAfricn Am 66 >59 eGFR If Africn Am 76 >59 BUN/Creatinine Ratio 7 9-23 Sodium, Serum 145 134-144 Potassium, Serum 3.9 3.5-5.2 Chloride, Serum 105 97-108 Carbon Dioxide, Total 23 18-29 Calcium, Serum 9.0 8.7-10.2 Protein, Total, Serum 6.5 6.0-8.5 Albumin, Serum 4.2 3.5-5.5 Globulin, Total 2.3 1.5-4.5 A/G Ratio 1.8 1.1-2.5 Bilirubin, Total 0.2 0.0-1.2 Alkaline Phosphatase, S 117 39-117 AST (SGOT) 10 0-40 ALT (SGPT) 14 0-32 PROCEDURES Procedure Date Ordered Related Diagnosis Body Site LAB [facility] Feb 03, 2016 [facility] VISIT ESTABLISHED PATIENT Feb 03, 2016 VENIPUNCT, ROUTINE* Feb 03, 2016 Office Visit, Est Pt., Level 5 Feb 03, 2016 IMMUNIZATIONS No Known Immunizations
--- OUTSIDE RECORDS SUMMARY | 2017-10-22 18:01 | XMS REPORT ---
Author Author JAYRO CUMMINGS Organization [facility] Address [address] [place] [address] Care Team Providers Care Training Personnel Supervisor Name Role Phone JAYRO CUMMINGS Unavailable PROBLEMS Type Condition ICD9-CM Code GOS95-[place] Code Onset Dates Condition Status SNOMED Code Problem Gastroesophageal reflux disease without esophagitis K21.9 Active 222561426 Problem Chronic renal insufficiency, stage 1 N18.1 Active 830474092 Problem Cervical pain M54.2 Active 51989621 Problem Chronic fatigue R53.82 Active 86302234 Problem Psychiatric illness F99 Active 15599841 Problem Compression fracture T14.8 Active 660474426 Problem Back pain at L4-L5 level M54.5 Active 943143009 Problem 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 28198529 Problem Migraine without aura and with status migrainosus, not intractable G43.001 Active 607487352 Problem Chronic obstructive pulmonary disease (COPD) suggested by initial evaluation J44.9 Active 54687447 Problem Arthritis M19.90 Active 8195198 Problem Chronic pain syndrome G89.4 Active 142727074 Problem Infarction of distal end of right femur M87.051 Active 432310119 Problem Mixed hyperlipidemia E78.2 Active 026827584 ALLERGIES No Information ENCOUNTERS Encounter Location Date Diagnosis [facility] [address], [place] [address] Aug, Chronic pain syndrome G89.4 ; Chronic obstructive pulmonary disease (COPD) suggested by initial evaluation J44.9 ; Arthritis M19.90 ; Migraine without aura and with status migrainosus, not intractable G43.001 ; Gastroesophageal reflux disease without esophagitis K21.9 ; Mixed hyperlipidemia E78.2 ; Chronic renal insufficiency, stage 1 N18.1 and Chronic fatigue R53.82 [facility] [id number], [place] [address] Aug, Chronic pain syndrome G89.4 [facility] [address] [address] 28[address] Aug, [facility] [id number] [place] [address] 74438- 8833 Aug, Arthritis M19.90 [facility] [id number] [place] [address] 65014- 0101 Aug, [facility] [id number] [place] [address] 59759- 0708 Jul, Chronic pain syndrome G89.4 ; Chronic obstructive pulmonary disease (COPD) suggested by initial evaluation J44.9 ; Arthritis M19.90 ; Migraine without aura and with status migrainosus, not intractable G43.001 ; Gastroesophageal reflux disease without esophagitis K21.9 ; Mixed hyperlipidemia E78.2 ; Chronic renal insufficiency, stage 1 N18.1 and Closed compression fracture of L4 lumbar vertebra with delayed healing, subsequent encounter S32.040G [facility] [id number] [place] [address] 18995- 6248 Jul, Chronic pain syndrome G89.4 [facility] [id number] [place] [address] 63952- 5310 Jul, [facility] [id number] [place] [address] 10610- 5828 Jul, [facility] [id number] [place] [address] 23903- 8346 Jul, Arthritis M19.90 [facility] [id number] [place] [address] 22660- 0359 Jul, Infarction of distal end of right femur M87.051 [facility] [id number] [place] [address] 29769- 8182 Jun, Chronic pain syndrome G89.4 ; Chronic [...] M25.571 and Pain, joint, knee, right M25.561 [facility] [id number] [place] [address] 08354- 7468 Jun, Arthritis M19.90 [facility] [id number] [place] [address] 01414- 1736 May, [facility] [id number] [place] [address] 91344- 7551 May, Chronic pain syndrome G89.4 and Migraine without aura and with status migrainosus, not intractable G43.001 [facility] [id number] [place] [address] 90854- 0429 May, Arthritis M19.90 [facility] [id number] [place] [address] 07871- 2858 May, Chronic obstructive pulmonary disease (COPD) suggested by initial evaluation J44.9 [facility] [id number] [place] [address] 62592- 9996 Apr, [facility] [id number] [place] [address] 67985- 8153 Apr, Arthritis M19.90 [facility] [id number] [place] [address] 95586- 4895 Mar, Arthritis M19.90 [facility] [id number] [place] [address] 93561 2548 30 Feb, 2017 [facility] [id number] [place] [address] 77089- 5846 Feb, [facility] [id number] [place] [address] 03451- 2547 18 Feb, 2017 Chronic pain syndrome G89.4 [facility] [id number] [place] [address] 40748- 6288 Feb, Migraine without aura and with status migrainosus, not intractable G43.001 ; Arthritis M19.90 ; Gastroesophageal reflux disease without esophagitis K21.9 ; Chronic pain syndrome G89.4 ; Chronic renal insufficiency, stage 1 N18.1 ; Mixed hyperlipidemia E78.2 ; Chronic obstructive pulmonary disease (COPD) suggested by initial evaluation J44.9 ; Skin infection L08.9 and Encounter for immunization Z23 [facility] [address] 90165- 1384 Jan, Migraine without aura and with status migrainosus, not intractable G43.001 [facility] [address] 15008- 7523 Jan, Migraine without aura and with status migrainosus, not intractable G43.001 [facility] [id number] [place] [address] 25689- 9503 Jan, Arthritis M19.90 [facility] [address] 43010- 1396 Jan, [facility] [id number] [place] [address] 60541- 2743 Dec, Arthritis M19.90 [facility] [id number] [place] [address] 54569- 4588 Nov, Gastroesophageal reflux disease without esophagitis K21.9 [facility] [id number] [place] [address] 03497- 2406 Nov, Arthritis M19.90 [facility] [id number] [place] [address] 44704- 6777 October, Chronic pain syndrome G89.4 ; Arthritis M19.90 ; Chronic renal insufficiency, stage 1 N18.1 ; Gastroesophageal reflux disease without esophagitis K21.9 ; Cervical pain M54.2 and Chronic obstructive pulmonary disease (COPD) suggested by initial evaluation J44.9 [facility] [id number] [place] [address] 42949- 8129 October, [facility] [address], [place] [address]- 6635 October, Chronic obstructive pulmonary disease (COPD) suggested by initial evaluation J44.9 [facility] [id number] [place] [address] 55738- 5020 October, 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 [facility] [id number] [place] [address] 56853- 6901 October, Mixed hyperlipidemia E78.2 ; Migraine without aura and with status migrainosus, not intractable G43.001 and 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 [facility] [id number] [place] [address] 35829- 0689 October, [facility] [id number] [place] [address] 52920- 1699 October, [facility] [id number] [place] [address] 83809- 8357 October, [facility] [id number] [place] [address] 00832- 9553 October, [facility] [id number] [place] [address] 51786- 3196 October, [facility] [id number] [place] [address] 20132- 5827 Sep, Chronic pain syndrome G89.4 [facility] [id number] [place] [address] 78451- 2054 Sep, Chronic pain syndrome G89.4 [facility] [id number] [place] [address] 38070- 0959 Sep, [facility] [id number] [place] [address] 05759- 8570 Sep, [facility] [id number] [place] [address] 07879- 9660 Sep, Chronic pain syndrome G89.4 [facility] [id number] [place] [address] 22420- 5088 Aug, Chronic pain syndrome G89.4 [facility] [id number] [place] [address] 00417- 2117 Aug, Chronic pain syndrome G89.4 and Mixed hyperlipidemia E78.2 [facility] [id number] [place] [address] 40970- 0866 Jul, [facility] [id number] [place] [address] 15609- 5113 Jun, [facility] [id number] [place] [address] 81706- 3744 Jun, Chronic pain syndrome G89.4 [facility] [id number] [place] [address] 09968- 6410 Jun, [facility] [id number] [place] [address] 35287- 2494 May, Fever chills R50.9 ; Chronic pain syndrome G89.4 ; Chronic renal insufficiency, stage 1 N18.1 ; Influenza B J10.1 ; Upper respiratory tract infection, unspecified type J06.9 and Migraine without aura and with status migrainosus, not intractable G43.001 [facility] [address], [place] [address]- 4539 May, [facility] [id number] [place] [address] 38221- 3421 Apr, [facility] [id number] [place] [address] 97713- 6680 Apr, [facility] [id number] [place] [address] 56329- 2282 Apr, [facility] [id number] [place] [address] 61941- 9993 Mar, [facility] [id number] [place] [address] 25076- 1833 Mar, [facility] [id number] [place] [address] 49119- 2036 Mar, Left anterior shoulder pain M25.512 [facility] [id number] [place] [address] 94999- 7167 Mar, Left anterior shoulder pain M25.512 ; Chronic pain syndrome G89.4 and Chronic renal insufficiency, stage 1 N18.1 [facility] [address] 43686- 7922 Mar, [facility] [id number] [place] [address] 46206- 4807 Feb, [facility] [address] 01292- 6810 Feb, [facility] [address] 89705- 8747 Feb, [facility] [address] 65062- 3615 Feb, Encounter for immunization Z23 [facility] [id number] [place] [address] 41515- 0561 Feb, [facility] [id number] [place] [address] 04096- 5738 Feb, [facility] [id number] [place] [address] 73684- 6793 Feb, Chronic pain syndrome G89.4 ; Chronic renal insufficiency, stage 1 N18.1 ; Migraine without aura and with status migrainosus, not intractable G43.001 ; Gastroesophageal reflux disease without esophagitis K21.9 ; Mixed hyperlipidemia E78.2 and 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 [facility] [id number] [place] [address] 42247- 0523 Jan, [facility] [id number] [place] [address] 15425- 0150 Nov, Chronic pain syndrome G89.4 ; Chronic renal insufficiency, stage 1 N18.1 ; Migraine without aura and with status migrainosus, not intractable G43.001 and Gastroesophageal reflux disease without esophagitis K21.9 [facility] [address] 84353- 2485 October, [facility] [id number] [place] [address] 97135- 4430 October, [facility] [id number] [place] [address] 47950- 8994 Sep, [facility] [id number] [place] [address] 40973- 5166 Sep, Back pain at L4-L5 level M54.5 and Compression fracture T14.8 [facility] [id number] [place] [address] 61782- 1822 Aug, [facility] [address] 44419- 9797 Aug, [facility] [id number] [place] [address] 45343- 7589 Aug, Back pain at L4-L5 level M54.5 and Compression fracture T14.8 [facility] [id number] [place] [address] 42212- 5541 Aug, Rib pain on right side R07.81 ; Right hip pain M25.551 and Lumbar pain M54.5 [facility] [id number] [place] [address] 06966- 2923 Jul, [facility] [id number] [place] [address] 03733- 1835 Jul, [facility] [id number] [place] [address] 65994- 3972 Jul, Chronic pain syndrome G89.4 ; Chronic renal insufficiency, stage 1 N18.1 ; Mixed hyperlipidemia E78.2 and Scleritis, left H15.002 [facility] [id number] [place] [address] 83402- 3176 Jun, [facility] [id number] [place] [address] 86551- 3030 May, [facility] [id number] [place] [address] 28547- 2484 Apr, [facility] [id number] [place] [address] 22969- 1586 Apr, [facility] [address] 24886- 7991 Apr, [facility] [id number] [place] [address] 20704- 2757 Mar, [facility] [id number] [place] [address] 52487- 9190 Mar, Chronic renal insufficiency, stage 1 N18.1 [facility] [address] 66939- 2323 Mar, Arthritis M19.90 ; Encounter for immunization Z23 ; Chronic pain syndrome G89.4 ; Chronic renal insufficiency, stage 1 N18.1 ; Gastroesophageal reflux disease without esophagitis K21.9 and Mixed hyperlipidemia E78.2 [facility] [id number] [place] [address] 17030- 3783 Mar, [facility] [id number] [place] [address] 35280- 3074 Feb, [facility] [id number] [place] [address] 20024- 0216 Feb, [facility] [id number] [place] [address] 66341- 8915 Dec, [facility] [id number] [place] [address] 08960- 3462 Dec, Unspecified myalgia and myositis 729.1 ; Sacroiliitis, not elsewhere classified 720.2 ; Headache 784.0 ; Renal insufficiency 593.9 ; Vitamin D deficiency 268.9 ; Fatigue 780.79 and Edema 782.3 [facility] [address], [place] [address]- 6656 Dec, [facility] [id number] [place] [address] 93989- 5908 Dec, [facility] [id number] [place] [address] 60876- 7672 Dec, [facility] [id number] [place] [address] 31752- 6158 Dec, [facility] [id number] [place] [address] 13747- 5135 Dec, [facility] [id number] [place] [address] 33838- 7675 Nov, [facility] [id number] [place] [address] 17788- 8333 Nov, [facility] [id number] [place] [address] 80432- 3534 Nov, [facility] [id number] [place] [address] 74554- 4999 Nov, Unspecified myalgia and myositis 729.1 ; Nausea alone 787.02 ; Sacroiliitis, not elsewhere classified 720.2 ; Headache 784.0 and Renal insufficiency 593.9 [facility] [id number] [address]- 9586 October, [facility] [address], [place] [address]- 7549 October, [facility] [id number] [place] [address] 21901- 7606 Sep, [facility] [address], [place] [address]- 1702 Sep, [facility] [id number] [place] [address] 69438- 0049 30 Aug, 2014 [facility] [place] [facility] [address] [id number] [place] [address]- 3782 30 Aug, 2014 [facility] [place] [facility] [address] [id number] [place] [address]- 2271 20 Aug, 2014 [facility] [place] [facility] [address] [id number] [place] [address]- 9508 20 Aug, 2014 [facility] [place] [facility] [address] [id number] [place] [address]- 1963 20 Aug, 2014 [facility] [place] [facility] [address] [id number] [place] [address]- 0312 20 Aug, 2014 [facility] [place] [facility] [address] [id number] [place] [address]- 0214 13 Aug, 2014 [facility] [place] [facility] [address] [id number] [place] [address]- 6490 Aug, [facility] [place] [facility] [address] [id number] [place] [address]- 2428 Aug, [facility] [place] [facility] [address] [id number] [place] [address]- 6986 Aug, [facility] [place] [facility] [address] [id number] [place] [address]- 8581 Aug, [facility] [place] [facility] [address] [id number] [place] [address]- 9783 Aug, [facility] [place] [facility] [address] [id number], [place] [address]- 3673 05 Aug, 2014 [facility] [place] [facility] [address] [id number] [place] [address]- 0899 Aug, [facility] [place] [facility] [address] [id number] [place] [address]- 4987 Aug, [facility] [place] [facility] [address] [id number] [place] [address]- 5082 Aug, [facility] [place] [facility] [address] [facility] [id number] [place] [address]- 0183 Jul, 2014 [facility] [place] [facility] [address] [facility] [id number] [place] [address]- 8506 Jul, 2014 [facility] [place] [facility] [address] [facility] [id number] [place] [address]- 2543 20 Jul, 2014 [facility] [place] [facility] [address] [facility] [id number] [place] [address]- 2421 Jul, 2014 [facility] [place] [facility] [address] [facility] [id number] [place] [address]- 5448 Jul, 2014 [facility] [place] [facility] [address] [facility] [id number] [place] [address]- 8218 Jul, 2014 [facility] [place] [facility] [address] [facility] [id number] [place] [address]- 1439 Jul, 2014 [facility] [place] [facility] [id number] [address]- 9046 Jul, 2014 [facility] [place] [facility] [address] [facility] [id number], [place] [address]- 7007 Jul, 2014 [facility] [place] [facility] [id number] [address]- 0309 Jul, 2014 [facility] [place] [facility] [id number], [place] [address]- 0461 Jul, 2014 [facility] [place] [facility] [address] [facility] [id number], [place] [address]- 8457 Jul, 2014 [facility] [place] [facility] [address] [facility] [id number] [place] [address]- 9804 Jul, 2014 [facility] [place] [facility] [address] [facility] [id number], [place] [address]- 1174 Jul, 2014 [facility] [place] [facility] [address] [facility] [id number], [place] [address]- 1540 Jul, 2014 [facility] [place] [facility] [address] [facility] [id number], [place] [address]- 1423 Jul, [facility] [address] [id number] [place] [address]- 9727 Jun, [facility] [place] [facility] [address] [id number] [place] [address]- 5812 Jun, [facility] [place] [facility] [address] [id number] [place] [address]- 1849 Jun, [facility] [place] [facility] [address] [id number] [place] [address]- 8938 Jun, [facility] [place] [facility] [address] [id number] [place] [address]- 6510 Jun, [facility] [place] [facility] [address] [id number] [place] [address]- 4281 Jun, [facility] [place] [facility] [address] [id number] [place] [address]- 6993 Jun, [facility] [place] [facility] [address] [id number] [place] [address]- 4427 Jun, [facility] [place] [facility] [address] [id number] [place] [address]- 6223 Jun, [facility] [place] [facility] [address] [id number] [place] [address]- 8158 Jun, [facility] [place] [facility] [address] [id number] [place] [address]- 1711 Jun, [facility] [place] [facility] [address] [id number], [place] [address]- 2030 Jun, [facility] [place] [facility] [address] [id number] [place] [address]- 6177 May, [facility] [place] [facility] [address] [id number] [place] [address]- 3632 May, [facility] [place] [facility] [address] [id number] [place] [address]- 9063 May, [facility] [place] [facility] [address] [id number] [place] 0965 22 May, 2014 [facility] [place] [facility] [address] [id number] [place] 2726 18 May, 2014 [facility] [place] [facility] [address] [id number] [place] [address] 16 May, 2014 [facility] [place] [facility] [address] [id number] [place] [address] 15 May, 2014 [facility] [place] [facility] [address] [id number] [place] [address] 12 May, 2014 [facility] [place] [facility] [address] [id number] [place] [address] 11 May, 2014 [facility] [place] [facility] [address] [id number] [place] [address] 11 May, 2014 [facility] [place] [facility] [address] [id number] [place] [address] 10 May, 2014 [facility] [place] [facility] [address] [id number] [place] [address] 10 May, 2014 [facility] [place] [facility] [address] [id number] [place] [address] 04 May, 2014 [facility] [place] [facility] [address] [id number] [place] [address] 04 May, 2014 [facility] [place] [facility] [address] [id number] [place] [address] 04 May, 2014 [facility] [place] [facility] [address] [id number] [place] [address] 04 May, 2014 [facility] [place] [facility] [address] [id number] [place] [address] 03 May, 2014 [facility] [place] [facility] [address] [id number] [place] [address] 03 May, 2014 [facility] [place] [facility] [address] [id number] [place] [address] Apr, [facility] [place] [facility] [address] [id number] [place] [address] Apr, [facility] [place] [facility] [address] [id number] [place] [address] Apr, [facility] [place] [facility] [address] [id number] [place] [address] Apr, [facility] [place] [facility] [address] [id number] [place] [address] Apr, [facility] [place] [facility] [address] [id number] [place] [address] Apr, [facility] [place] [facility] [address] [id number] [place] [address] Apr, [facility] [place] [facility] [address] [id number] [place] [address] Apr, [facility] [place] [facility] [address] [id number] [place] [address] 17 Mar, 2014 [facility] [place] [facility] [address] [id number] [place] [address] 14 Mar, 2014 [facility] [place] [facility] [address] [id number] [place] [address] 3969 14 Mar, 2014 [facility] [place] [facility] [address] [id number], [place] [address] 30 Feb, 2014 [facility] [place] [facility] [address] [id number], [place] [address] 30 Feb, 2013 [facility] [place] [facility] [address] [id number] [place] [address] 26 Feb, 2014 [facility] [place] [facility] [address] [id number] [place] [address] 26 Feb, 2013 [facility] [place] [facility] [address] [id number] [place] [address] 9367 10 Feb, 2014 [facility] [place] [facility] [address] [id number] [place] [address] 10 Feb, 2014 [facility] [place] [facility] [address] [id number] [place] [address] 44[address] Feb, [facility] [place] [facility] [address] [id number] [place] [address] 4[address] Feb, [facility] [place] [facility] [address] [id number] [place] [address] 2931 Jan, [facility] [place] [facility] [address] [id number] [place] [address] 2013 Jan, [facility] [place] [facility] [address] [id number] [place] [address]- 4484 Jan, [facility] [place] [facility] [address] [id number] [place] [address] 7567 Jan, [facility] [place] [facility] [address] [id number] [place] [address]- 0224 Jan, [facility] [place] [facility] [address] [id number] [place] [address]- 2240 Jan, [facility] [place] [facility] [address] [id number] [place] [address] 0457 Dec, [facility] [place] [facility] [address] [id number] [place] [address] 7160 Dec, [facility] [place] [facility] [address] [id number] [place] [address]- 1162 Dec, [facility] [place] [facility] [address] [id number] [place] [address]- 8533 Dec, [facility] [place] [facility] [address] [id number] [place] [address]- 8623 Nov, [facility] [place] [facility] [address] [id number] [place] [address]- 2488 Nov, [facility] [place] [facility] [address] [id number] [place] [address]- 7514 Nov, [facility] [place] [facility] [address] [id number] [place] [address]- 0415 Nov, [facility] [place] [facility] [address] [id number] [place] [address]- 6532 Nov, [facility] [place] [facility] [address] [id number] [place] [address]- 7906 Nov, [facility] [place] [facility] [address] [id number] [place] [address]- 6113 Nov, [facility] [place] [facility] [address] [id number] [place] [address]- 8136 Nov, [facility] [place] [facility] [address] [id number] [place] [address]- 4421 Nov, [facility] [place] [facility] [address] [id number] [place] [address]- 3083 Nov, [facility] [place] [facility] [address] [id number] [place] [address]- 1020 Nov, [facility] [place] [facility] [address] [id number] [place] [address]- 4116 Nov, [facility] [place] [facility] [address] [id number] [place] [address]- 7835 Nov, [facility] [place] [facility] [address] [id number] [place] [address]- 5320 Nov, [facility] [place] [facility] [address] [id number] [place] [address]- 7383 Nov, [facility] [place] [facility] [address] [id number] [place] [address]- 5863 Nov, [facility] [place] [facility] [address] [id number] [place] [address]- 1045 Nov, [facility] [place] [facility] [address] [id number] [place] [address]- 9487 Nov, [facility] [place] [facility] [address] [id number] [place] [address]- 4631 Nov, [facility] [place] [facility] [address] [id number] [place] [address]- 6151 Nov, [facility] [place] [facility] [address] [id number] [place] [address]- 3868 Nov, [facility] [place] [facility] [address] [id number] [place] [address]- 7895 Nov, [facility] [place] [facility] [address] [id number] [place] [address]- 1855 Nov, [facility] [place] [facility] [address] [id number] [place] [address]- 2741 Nov, [facility] [place] [facility] [address] [id number] [place] [address]- 9300 Nov, [facility] [place] [facility] [address] [id number] [place] [address]- 5109 Nov, [facility] [place] [facility] [address] [id number] [place] [address]- 0667 October, [facility] [place] [facility] [address] [id number] [place] [address]- 1181 October, [facility] [place] [facility] [address] [id number] [place] [address]- 5283 October, [facility] [place] [facility] [address] [id number] [place] [address]- 0034 October, [facility] [place] [facility] [address] [id number] [place] [address]- 1898 October, [facility] [place] [facility] [address] [id number] [place] [address]- 6974 October, [facility] [place] [facility] [address] [id number] [place] [address]- 7527 October, [facility] [place] [facility] [address] [id number] [place] [address]- 3551 October, [facility] [place] [facility] [address] [id number] [place] [address]- 5077 October, [facility] [address] [id number] [place] [address]- 9607 October, [facility] [address] [id number] [place] [address] 1980 October, [facility] [address] [id number] [place] [address]- 6350 October, [facility] [address] [id number] [place] [address]- 3936 October, [facility] [address] [id number] [place] [address]- 9682 October, [facility] [address] [id number] [place] [address]- 2918 October, [facility] [address] [id number] [place] [address]- 8576 October, [facility] [address] [id number] [place] [address]- 2443 October, [facility] [address] [id number] [place] [address]- 9477 Sep, [facility] [address] [id number] [place] [address]- 7217 Sep, [facility] [place] [facility] [address] [id number] [place] [address]- 0301 Sep, [facility] [address] [id number] [place] [address]- 6964 Sep, [facility] [place] [facility] [address] [id number] [place] [address]- 6322 Sep, [facility] [place] [facility] [address] [id number] [place] [address]- 4026 Sep, [facility] [place] [facility] [address] [id number] [place] [address]29 Sep, [facility] [place] [facility] [address] [id number] [place] [address]- 8551 Aug, [facility] [place] [facility] [address] [id number] [place] [address]- 4376 Aug, [facility] [place] [facility] [address] [id number] [place] [address]- 2583 Aug, [facility] [place] [facility] [address] [id number] [place] [address]- 9294 Aug, [facility] [place] [facility] [address] [id number] [place] [address]- 7721 Aug, [facility] [place] [facility] [address] [id number] [place] [address]- 0175 Aug, [facility] [place] [facility] [address] [id number] [place] [address]- 4431 Jul, [facility] [place] [facility] [address] [id number] [place] [address]- 0699 Jul, [facility] [place] [facility] [address] [id number] [place] [address]- 0344 Jul, [facility] [place] [facility] [address] [facility] [id number] [place] [address]- 5517 Jul, [facility] [place] [facility] [address] [id number] [place] [address]- 9867 Jul, [facility] [place] [facility] [address] [id number] [place] [address]- 5573 18 Jul, 2013 [facility] [place] [facility] [address] [id number] [place] [address]- 5362 Jul, [facility] [place] [facility] [address] [id number] [place] [address]- 9383 17 Jul, 2013 [facility] [place] [facility] [address] [id number] [place] [address]- 2194 14 Jul, 2013 [facility] [place] [facility] [address] [id number] [place] [address]- 2435 14 Jul, 2013 [facility] [address] [id number] [place] [address]- 8340 Jun, [facility] [place] [facility] [address] [id number] [place] [address]- 0916 Jun, [facility] [address] [id number] [place] [address]- 1742 Jun, [facility] [place] [facility] [address] [id number] [place] [address]- 7221 Jun, [facility] [address] [id number] [place] [address]- 2432 Jun, [facility] [address] [id number] [place] [address]- 8053 Jun, [facility] [address] [id number] [place] [address]- 2479 Jun, [facility] [address] [id number] [place] [address]- 5099 May, [facility] [address] [id number] [place] [address]- 3639 May, [facility] [address] [id number] [place] [address]- 0607 May, [facility] [place] [facility] [address] [id number] [place] [address]- 5998 May, [facility] [place] [facility] [address] [id number] [place] [address]- 1630 May, [facility] [place] [facility] [address] [id number] [place] [address]- 4403 May, [facility] [place] [facility] [address] [id number] [place] [address]- 9738 Apr, [facility] [place] [facility] [address] [id number] [place] [address]- 3659 Apr, [facility] [place] [facility] [address] [id number] [place] [address]- 1893 Apr, [facility] [place] [facility] [address] [id number] [place] [address]- 5605 Apr, [facility] [place] [facility] [address] [id number] [place] [address]- 1903 15 Apr, 2013 [facility] [place] [facility] [address] [id number] [place] [address]- 2186 14 Apr, 2013 [facility] [place] [facility] [address] [id number] [place] [address]- 8145 Apr, [facility] [place] [facility] [address] [id number] [address]- 2252 Apr, [facility] [place] [facility] [address] [id number] [place] [address]- 5742 Apr, [facility] [place] [facility] [address] [id number], [place] [address]- 5848 Apr, [facility] [place] [facility] [address] [id number] [place] [address]- 5331 Apr, [facility] [place] [facility] [address] [id number], [place] [address]- 1547 Apr, [facility] [place] [facility] [address] [id number], [place] [address]- 3851 Apr, [facility] [place] [facility] [address] [id number], [place] [address]- 9747 Mar, [facility] [place] [facility] [address] [id number] [place] [address]- 1366 Mar, [facility] [place] [facility] [address] [id number], [place] [address]- 2178 Mar, [facility] [place] [facility] [address] [id number] [place] [address]- 0023 Mar, [facility] [place] [facility] [address] [id number] [place] [address]- 0514 28 Mar, 2012 [facility] [place] [facility] [address] [id number] [place] [address]- 4021 16 Mar, 2012 [facility] [place] [facility] [address] [id number] [place] [address]- 6895 16 Mar, 2012 [facility] [place] [facility] [address] [id number] [place] [address]- 0894 15 Mar, 2012 [facility] [place] [facility] [address] [id number] [place] [address]- 3747 15 Mar, 2012 [facility] [place] [facility] [address] [id number] [place] [address]- 2182 15 Mar, 2012 [facility] [place] [facility] [address] [id number] [place] [address]- 1636 15 Mar, 2012 [facility] [place] [facility] [address] [id number] [place] [address]- 5659 13 Mar, 2012 [facility] [place] [facility] [address] [id number] [place] [address]- 9021 10 Mar, 2012 [facility] [place] [facility] [address] [id number] [place] [address]- 9823 10 Mar, 2012 [facility] [place] [facility] [address] [id number] [place] [address]- 6755 2013 [facility] [place] [facility] [address] [id number] [place] [address]- 9777 03 Mar, 2012 [facility] [place] [facility] [address] [id number] [place] [address]- 2549 27 Feb, 2012 [facility] [place] [facility] [address] [id number] [place] [address]- 7599 26 Feb, 2012 [facility] [place] [facility] [address] [id number] [place] [address]- 5785 25 Feb, 2012 [facility] [place] [facility] [address] [id number] [place] [address]- 1515 24 Feb, 2012 [facility] [place] [facility] [address] [id number] [place] [address] 2541 23 Sep, 2012 [facility] [place] [facility] [address] [id number] [place] [address] 2546 20 Sep, 2012 [facility] [place] [facility] [address] [id number] [place] [address] 2546 18 Sep, 2012 [facility] [place] [facility] [address] [id number] [place] [address] 2546 17 Sep, 2012 [facility] [place] [facility] [address] [id number] [place] [address] 2542 11 Sep, 2012 [facility] [place] [facility] [address] [id number] [place] [address]- 8896 09 Sep, 2012 [facility] [place] [facility] [address] [id number] [place] [address]- 0697 09 Sep, 2012 [facility] [place] [facility] [address] [id number] [place] [address]- 9886 08 Sep, 2012 [facility] [place] [facility] [address] [id number] [place] [address]- 5718 06 Sep, 2012 [facility] [place] [facility] [address] [id number] [place] [address]- 2547 06 Feb, 2012 [facility] [place] [facility] [address] [id number] [place] [address] 2549 04 Feb, 2012 [facility] [place] [facility] [address] [id number] [place] [address]- 2541 26 Jan, 2012 [facility] [place] [facility] [address] [id number] [place] [address] 2540 23 Jan, 2012 [facility] [place] [facility] [address] [id number] [place] [address]- 2543 22 Jan, 2012 [facility] [place] [facility] [address] [id number] [place] [address]- 254 16 Jan, 2012 [facility] [place] [facility] [address] [id number] [place] [address]- 5808 15 Jan, 2013 [facility] [place] [facility] [address] [id number] [place] [address]- 2918 Jan, [facility] [place] [facility] [address] [id number] [place] [address]- 9656 Jan, [facility] [place] [facility] [address] [id number] [place] [address]- 1794 Jan, [facility] [place] [facility] [address] [id number] [place] [address]- 7704 Jan, [facility] [place] [facility] [address] [id number] [place] [address]- 9655 Dec, [facility] [place] [facility] [address] [id number] [place] [address]- 3060 Dec, [facility] [place] [facility] [address] [id number] [place] [address]- 6783 Dec, [facility] [place] [facility] [address] [id number] [place] [address]- 2569 Dec, [facility] [place] [facility] [address] [id number] [place] [address]- 5274 Dec, [facility] [place] [facility] [address] [id number] [place] [address]- 2961 Dec, [facility] [place] [facility] [address] [id number] [place] [address]- 5296 Dec, [facility] [place] [facility] [address] [id number] [place] [address]- 9588 Dec, [facility] [place] [facility] [address] [id number] [place] [address]- 1166 Nov, [facility] [place] [facility] [address] [id number] [place] [address]- 1826 Nov, [facility] [place] [facility] [address] [id number] [place] [address]- 1711 Nov, [facility] [place] [facility] [address] [id number] [place] [address]- 6087 24 Nov, 2012 [facility] [address] [id number] [place] [address]- 0969 Nov, [facility] [place] [facility] [address] [id number] [place] [address]- 1500 18 Nov, 2012 [facility] [place] [facility] [address] [id number] [place] [address]- 1202 18 Nov, 2012 [facility] [place] [facility] [address] [id number] [place] [address]- 1620 17 Nov, 2012 [facility] [place] [facility] [address] [id number] [place] [address]- 1259 14 Nov, 2012 [facility] [place] [facility] [address] [id number] [place] [address]- 5975 Nov, [facility] [place] [facility] [address] [id number] [place] [address]- 3332 Nov, [facility] [place] [facility] [address] [id number] [place] [address]- 8206 08 Nov, 2012 [facility] [place] [facility] [address] [id number] [place] [address]- 4530 05 Nov, 2012 [facility] [place] [facility] [address] [id number] [place] [address]- 5163 04 Nov, 2012 [facility] [place] [facility] [address] [id number] [place] [address]- 2584 Nov, [facility] [place] [facility] [address] [id number] [place] [address]- 9737 Nov, [facility] [place] [facility] [address] [id number] [place] [address]- 6829 Nov, [facility] [place] [facility] [address] [id number] [place] [address]- 2907 Nov, [facility] [place] [facility] [address] [id number] [place] [address]- 0331 October, [facility] [address] [id number] [place] [address]- 4365 October, [facility] [address] [id number] [place] [address]- 7613 October, [facility] [address] [id number] [place] [address]- 3814 October, [facility] [address] [id number] [place] [address]- 7662 October, [facility] [address] [id number] [place] [address]- 3894 October, [facility] [address] [id number] [place] [address]- 2026 October, [facility] [address] [id number] [place] [address]- 8273 October, [facility] [address] [id number] [place] [address]- 0281 Sep, [facility] [address] [id number] [place] [address]- 5608 Sep, [facility] [address] [id number] [place] [address]- 3548 Sep, [facility] [address] [id number] [place] [address]- 7422 Sep, [facility] [address] [id number] [place] [address]- 5380 Sep, [facility] [address] [id number] [place] [address]- 1974 Sep, [facility] [place] [facility] [address] [id number] [place] [address]- 7179 Sep, [facility] [address] [id number] [place] [address]32 Aug, [facility] [address] [id number], [place] [address]- 9745 Aug, [facility] [address] [id number] [place] [address]- 0963 Aug, [facility] [address] [id number] [place] [address]- 4748 Aug, [facility] [address] [id number] [place] [address]- 5502 Aug, [facility] [address] [id number] [place] [address]- 0366 Aug, [facility] [address] [id number] [place] [address] Aug, [facility] [address] [id number] [place] [address] Aug, [facility] [address] [id number] [place] [address] Jul, [facility] [address] [id number] [place] [address] Jul, [facility] [address] [id number] [place] [address] Jun, [facility] [address] [facility] [id number] [place] [address] Jun, [facility] [address] [id number], [place] [address] Jun, [facility] [place] [facility] [address] [id number], [place] [address] Jun, [facility] [place] [facility] [address] [id number] [place] [address] Jun, [facility] [place] [facility] [address] [id number] [place] [address] May, [facility] [place] [facility] [address] [id number] [place] [address] May, [facility] [place] [facility] [address] [id number] [place] [address] 13 May, 2012 [facility] [place] [facility] [address] [id number] [place] [address] May, [facility] [place] [facility] [address] [id number] [place] [address] 2546 May, [facility] [place] [facility] [address] [id number] [place] [address] May, [facility] [place] [facility] [address] [id number] [place] [address] May, [facility] [place] [facility] [address] [id number] [place] [address] May, [facility] [place] [facility] [address] [id number] [place] [address] Apr, [facility] [place] [facility] [address] [id number] [place] [address] Apr, [facility] [place] [facility] [address] [id number] [place] [address] Apr, [facility] [place] [facility] [address] [id number] [place] [address] Apr, [facility] [place] [facility] [address] [id number] [place] [address] Apr, [facility] [place] [facility] [address] [id number] [place] [address]- [address] 19 Apr, 2012 [facility] [place] [facility] [address] [id number] [place] [address] 2546 16 Apr, 2012 [facility] [place] [facility] [address] [id number] [place] [address] 2546 16 Apr, 2012 [facility] [place] [facility] [address] [id number] [place] [address] 15 Apr, 2012 [facility] [place] [facility] [address] [id number] [place] [address] Apr, [facility] [place] [facility] [address] [id number] [place] [address] Apr, [facility] [place] [facility] [address] [id number] [place] [address] Apr, [facility] [place] [facility] [address] [facility] [id number] [place] [address] 39[address] Apr, [facility] [place] [facility] [address] [id number] [place] [address] 9499 Apr, [facility] [place] [facility] [address] [id number] [place] [address]- [address]68 Apr, [facility] [place] [facility] [address] [id number] [place] [address], [place] [address]- [address] Apr, [facility] [place] [facility] [address] [facility] [id number] [place] [address] 3514 Apr, [facility] [place] [facility] [address] [id number], [place] [address] Apr, [facility] [place] [facility] [address] [id number], [place] [address] Mar, [facility] [place] [facility] [address] [facility] [id number], [place] [address] Mar, [facility] [place] [facility] [address] [id number], [place] [address] Mar, [facility] [place] [facility] [address] [id number], [place] [address] 18 Mar, 2012 [facility] [place] [facility] [address] [id number], [place] [address] 17 Mar, 2012 [facility] [place] [facility] [address] [facility] [id number], [place] [address] 15 Mar, 2012 [facility] [place] [facility] [address] [facility] [id number], [place] [address] 15 Mar, 2012 [facility] [place] [facility] [address] [id number] [place] [address] 12 Mar, 2012 [facility] [place] [facility] [address] [id number] [place] [address]- [address] Mar, [facility] [place] [facility] [address] [id number] [place] [address]- [address] Mar, [facility] [place] [facility] [address] [id number] [place] [address]- [address] Mar, [facility] [place] [facility] [address] [id number] [place] [address] 2548 27 Feb, 2012 [facility] [place] [facility] [address] [id number] [place] [address]- [address] 26 Feb, 2012 [facility] [place] [facility] [address] [id number] [place] [address]- [address]79 12 Feb, 2012 [facility] [place] [facility] [address] [id number] [place] [address]- [address] 30 Jan, 2012 [facility] [place] [facility] [address] [id number] [place] [address]- [address]88 29 Jan, 2012 [facility] [place] [facility] [address] [id number] [place] [address]- [address] Jan, [facility] [place] [facility] [address] [id number] [place] [address]- [address]28 23 Jan, 2012 [facility] [place] [facility] [address] [id number] [place] [address] 2546 Jan, [facility] [place] [facility] [address] [id number] [place] [address]- [address]41 16 Jan, 2012 [facility] [place] [facility] [address] [id number] [place] [address] 2541 Jan, [facility] [place] [facility] [address] [id number] [place] [address]- [address]46 15 Jan, 2012 [facility] [place] [facility] [address] [id number] [place] [address]- 2548 Jan, [facility] [place] [facility] [address] [id number] [place] [address]- 6344 Jan, [facility] [place] [facility] [address] [id number] [place] [address]- [address]574 Dec, [facility] [place] [facility] [address] [id number] [place] [address]- 2890 Dec, [facility] [place] [facility] [address] [id number] [place] [address]- 299[address] Dec, [facility] [place] [facility] [address] [id number] [place] [address]- 5868 Dec, [facility] [place] [facility] [address] [id number] [place] [address]- 1249 Dec, [facility] [place] [facility] [address] [id number] [place] [address]- 7028 Dec, [facility] [place] [facility] [address] [id number] [place] [address]- 3738 Dec, [facility] [place] [facility] [address] [id number] [place] [address]- 2530 Dec, [facility] [place] [facility] [address] [id number] [place] [address]- [address] Dec, [facility] [place] [facility] [address] [id number] [place] [address] Dec, [facility] [place] [facility] [address] [id number] [place] [address] Dec, [facility] [place] [facility] [address] [id number] [place] [address] Dec, [facility] [place] [facility] [address] [id number] [place] [address] Dec, [facility] [place] [facility] [address] [id number] [place] [address] 118[address] Nov, [facility] [place] [facility] [address] [id number] [place] [address] 9580 Nov, [facility] [place] [facility] [address] [id number] [place] [address] Nov, [facility] [place] [facility] [address] [id number] [place] [address] Nov, [facility] [place] [facility] [address] [id number] [place] [address] Nov, [facility] [place] [facility] [address] [id number] [place] [address] 9871 Nov, [facility] [place] [facility] [address] [id number] [place] [address] October, [facility] [place] [facility] [address] [id number] [place] [address] October, [facility] [place] [facility] [address] [id number] [place] [address] October, [facility] [place] [facility] [address] [id number] [place] [address] 8[address] October, [facility] [place] [facility] [address] [id number] [place] [address] October, [facility] [place] [facility] [address] [id number] [place] [address] 3093 October, [facility] [place] [facility] [address] [id number] [place] [address] 69[address] October, [facility] [place] [facility] [address] [id number] [place] [address] Sep, [facility] [place] [facility] [address] [id number] [place] [address]753 Sep, [facility] [place] [facility] [address] [id number] [place] [address] Sep, [facility] [place] [facility] [address] [id number] [place] [address] Sep, [facility] [place] [facility] [address] [id number] [place] [address] 23 Sep, 2011 [facility] [address] [id number] [place] [address] 20 Sep, 2011 [facility] [place] [facility] [address] [id number] [place] [address] 5976 16 Sep, 2011 [facility] [address] [id number] [place] [address] 2796 06 Sep, 2011 [facility] [address] [id number] [place] [address] 06 Sep, 2011 [facility] [address] [id number] [place] [address] 3643 04 Sep, 2011 [facility] [address] [id number] [place] [address] Sep, [facility] [address] [id number] [place] [address] 0566 Sep, [facility] [address] [id number] [place] [address] 48[address] 15 Aug, 2011 [facility] [address] [id number] [place] [address] 7702 13 Aug, 2011 [facility] [address] [id number] [place] [address] 378[address] 13 Aug, 2011 [facility] [place] [facility] [address] [id number] [place] [address] Aug, [facility] [address] [id number] [place] [address] 5673 29 Jul, 2011 [facility] [place] [facility] [address] [id number] [place] [address] 4567 28 Jul, 2011 [facility] [place] [facility] [address] [id number] [place] [address] 8776 Jul, [facility] [place] [facility] [address] [id number] [place] [address] 2735 Jul, [facility] [place] [facility] [address] [id number] [place] [address] 1456 Jul, [facility] [place] [facility] [address] [id number] [place] [address] 4866 Jul, [facility] [place] [facility] [address] [facility] [id number] [place] [address] Jul, [facility] [place] [facility] [address] [id number] [place] [address] 8596 Jul, [facility] [place] [facility] [address] [id number] [place] [address] 0406 Jul, [facility] [place] [facility] [address] [id number] [place] [address] 5136 Jul, [facility] [place] [facility] [address] [facility] [id number] [place] [address] 2396 Jul, [facility] [place] [facility] [address] [facility] [id number] [place] [address]- 7205 Jul, [facility] [place] [facility] [address] [facility] [id number] [place] [address]- 5138 Jul, [facility] [place] [facility] [address] [facility] [id number] [place] [address]- 2593 Jun, [facility] [place] [facility] [address] [facility] [id number] [place] [address]- 2666 Jun, [facility] [place] [facility] [address] [id number] [place] [address]- 3402 Jun, [facility] [place] [facility] [address] [id number] [place] [address]- 1446 Jun, [facility] [place] [facility] [address] [facility] [id number] [place] [address]- 2206 Jun, [facility] [place] [facility] [address] [facility] [id number] [place] [address]- 2658 Jun, [facility] [place] [facility] [address] [id number] [place] [address]- 4090 Jun, [facility] [place] [facility] [address] [id number] [place] [address]- 8884 Jun, [facility] [place] [facility] [address] [id number] [place] [address] 1887 Jun, [facility] [place] [facility] [address] [id number] [place] [address]- 3281 Jun, [facility] [place] [facility] [address] [id number] [place] [address]- 7964 May, [facility] [place] [facility] [address] [id number] [place] [address]- 3114 May, [facility] [place] [facility] [address] [id number] [place] [address]- 4514 May, [facility] [place] [facility] [address] [id number] [place] [address]- 9349 May, [facility] [place] [facility] [address] [id number] [place] [address]- 7149 Apr, [facility] [place] [facility] [address] [id number] [place] [address]- 7805 Apr, [facility] [place] [facility] [address] [id number] [place] [address]- 8691 Apr, [facility] [place] [facility] [address] [id number] [place] [address]- 0632 Apr, [facility] [place] [facility] [address] [id number] [place] [address]- 8778 Apr, [facility] [place] [facility] [address] [id number] [place] [address] 31 Mar, 2011 [facility] [place] [facility] [address] [id number] [place] [address]- 9269 24 Mar, 2011 [facility] [place] [facility] [address] [id number] [place] [address]- 5089 18 Mar, 2011 [facility] [address] [id number] [place] [address]- 2701 18 Mar, 2011 [facility] [place] [facility] [address] [id number] [place] [address]- 4526 28 May, 2010 [facility] [place] [facility] [address] [facility] [id number] [place] [address]- 3396 22 May, 2010 [facility] [place] [facility] [address] [id number] [place] [address]- 6586 17 May, 2010 [facility] [place] [facility] [address] [id number] [place] [address]- 2196 17 May, 2010 [facility] [place] [facility] [address] [id number] [place] [address]- 8692 15 May, 2010 [facility] [place] [facility] [address] [facility] [id number] [place] [address]- 9910 09 May, 2010 [facility] [place] [facility] [address] [id number] [address]59 08 May, 2010 [facility] [place] [facility] [address] [id number] [place] [address]- 4905 May, [facility] [place] [facility] [address] [id number], [place] [address]- 4325 29 Apr, 2010 [facility] [place] [facility] [address] [id number], [place] [address]- 2356 16 Apr, 2010 [facility] [place] [facility] [address] [id number], [place] [address] 2544 16 Apr, 2010 [facility] [place] [facility] [address] [id number], [place] [address]- 7556 15 Apr, 2010 [facility] [place] [facility] [address] [facility] [id number], [place] [address]- 9093 08 Apr, 2010 [facility] [place] [facility] [address] [facility] [id number], [place] [address] 2546 05 Apr, 2010 [facility] [place] [facility] [id number], [place] [address] Apr, [facility] [id number], [place] [address]76 Apr, [facility] [id number], [place] [address]- 8146 Mar, [facility] [id number], [place] [address]- 5176 Jan, [facility] [id number] [place] [address]- 9656 Nov, [facility] [id number] [place] [address]- 5096 October, [facility] [id number] [place] [address]- 5436 Sep, [facility] [id number] [place] [address]- 6896 Aug, [facility] [address], [place] [address]- 3876 Jul, [facility] [id number] [place] [address]- 2556 Jun, IMMUNIZATIONS No Known Immunizations SOCIAL HISTORY Never Assessed REASON FOR VISIT Controlled Med Refill PLAN OF CARE VITAL SIGNS MEDICATIONS Medication Instructions Dosage Frequency Start Date End Date Duration Status Hydrocodone-Acetaminophen 5-325 MG Orally 2 times a day prn-Must have appt for further refills 1 tablet as needed Dec, Active RESULTS No Results PROCEDURES No Known [...] disorder, dependent personality disorder. Being seen by [facility] Medical History chonic pain since 1994 [...]
--- OUTSIDE RECORDS SUMMARY | 2017-10-22 18:01 | XMS REPORT ---
Author Author HASEEB COOK Organization [facility] Address [address] [place] [address] Care Team Providers Care Fiscal Manager Name Role Phone HASEEB COOK Unavailable PROBLEMS Type Condition ICD9-CM Code [id number] Code Onset Dates Condition Status SNOMED Code Problem Arthritis M19.90 Active 3606261 Problem Mixed hyperlipidemia E78.2 Active 052982747 Problem Chronic pain syndrome G89.4 Active 107765387 Problem Chronic obstructive pulmonary disease (COPD) suggested by initial evaluation J44.9 Active 97821388 Problem Gastroesophageal reflux disease without esophagitis K21.9 Active 016506247 Problem 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
--- OUTSIDE RECORDS SUMMARY | 2017-10-22 18:01 | XMS REPORT ---
Author Author HASEEB COOK Organization [employer] Address Unknown Phone Unavailable Care Team Providers Care Blog Writer Name Role Phone HASEEB COOK CP Unavailable [...]
--- OUTSIDE RECORDS SUMMARY | 2017-10-22 18:02 | XMS REPORT ---
Author Author HASEEB COOK Organization [employer] Address Unknown Phone Unavailable Care Team Providers Care Director Of Transportation Name Role Phone HASEEB COOK CP Unavailable Allergies No Known Allergies Problems Problem Type Condition Code Onset Dates Condition Status Problem Cervical pain M54.2 Active Problem Gastroesophageal reflux disease without esophagitis K21.9 Active Problem Mixed hyperlipidemia E78.2 Active Assessment Left anterior shoulder pain M25.512 Active Problem Migraine without aura and with status migrainosus, not intractable G43.001 Active Problem Back pain at L4-L5 level M54.5 Active Problem 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 [address]-79 10 mg Orally 2 times a day PRN Jun 27, 2016 1 tablet with food or milk Results No Known Results Summary Purpose [employer] Submission
--- OUTSIDE RECORDS SUMMARY | 2017-10-22 18:02 | XMS REPORT ---
Author Author HASEEB COOK Organization [facility] Address [address] [place] [address] Care Team Providers Care Veneer Jointer Returner Name Role Phone HASEEB COOK Unavailable PROBLEMS Type Condition ICD9-CM Code [id number] Code Onset Dates Condition Status SNOMED Code Problem Mixed hyperlipidemia E78.2 Active 205381037 Problem Chronic renal insufficiency, stage 1 N18.1 Active 089791473 Problem Gastroesophageal reflux disease without esophagitis K21.9 Active 548524165 Problem Chronic obstructive pulmonary disease (COPD) suggested by initial evaluation J44.9 Active 71390787 Problem Cervical pain M54.2 Active 59157972 Problem 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 Unknown Non Drug Allergy May, Unknown SOCIAL HISTORY No smoking Hx information available PLAN OF CARE Activity Details Follow Up 3 Months or if not improving Reason:Pain VITAL SIGNS Height 64 in 2016-05-25 Weight 163.7 lbs 2016-05-25 Temperature 100.1 degrees Fahrenheit 2016-05-25 Heart Rate 94 bpm 2016-05-25 Respiratory Rate 18 2016-05-25 BMI 28.10 kg/m2 2016-05-25 Blood pressure systolic 106 mmHg 2016-05-25 Blood pressure diastolic 68 mmHg 2016-05-25 MEDICATIONS Medication Instructions Dosage Frequency Start Date End Date Duration Status Lexapro 20 mg 1 tablet by Oral route 1 time per day takes 1 1/2 tabs daily Jun, Active Baclofen 10 mg Orally 2 times a day PRN 1 tablet with food or milk Active Promethazine HCl 25 MG Orally every 12 hrs prn nausea 1 tablet as needed 15 Active Lyrica 100 MG Orally 2 times a day 1 capsule 12h Active Kfocq-4-iaob Ethyl Esters 1GM 1 capsule 12h 3 Oct, 2016 90 days Active Ventolin HFA 90 mcg/actuation Inhalation every 4 hrs prn 2 puffs Nov, Active Lipitor 20 mg Orally Once a day 1 tablet by Oral route 1 time per day 24h 16 Jan, 2012 Active Nexium 40MG Orally Once a day 1 capsule 24h Active Levaquin 500 MG Orally Once a day 1 tablet 24h May, Jun, 10 day(s) Active Imitrex 50 mg Orally Twice a day prn 1 tablet as needed Active Potassium Chloride 10 mEq started by Aayush 24h Dec, Active Hydrocodone-Acetaminophen 5-325 MG Orally 2 times a day prn 1 tablet as needed Active Topamax 100 mg take 1 tablet (50 mg) by oral route 2 times per day October, Active Albuterol Sulfate (2.5 MG/3ML) 0.083% Inhalation 2 times a day 3 ml 12h 90 days Active Xanax 1 mg 0.5 tablet by Oral route 2 times per day Dec, Active Seroquel XR 50 mg Orally 2 times a day 1 tablet 12h Dec, Active RESULTS Name Result Date Reference Range INFLUENZA A & B (IN HOUSE) 2016-05-25 INFLUENZA A Negative INFLUENZA B Positive Control + Lot # [id number] Exp date CBC 2016-05-25 WBC 7.6 3.4-10.8 RBC 4.71 3.77-5.28 Hemoglobin 13.5 11.1-15.9 Hematocrit 40.0 34.0-46.6 MCV 85 79-97 MCH 28.7 26.6-33.0 MCHC 33.8 31.5-35.7 RDW 14.7 12.3-15.4 Platelets 235 150-379 Neutrophils 48 Lymphs 44 Monocytes 7 Eos 1 Basos 0 Immature Cells Neutrophils (Absolute) 3.6 1.4-7.0 Lymphs (Absolute) 3.3 0.7-3.1 Monocytes(Absolute) 0.5 0.1-0.9 Eos (Absolute) 0.0 0.0-0.4 Baso (Absolute) 0.0 0.0-0.2 Immature Granulocytes 0 Immature Grans (Abs) 0.0 0.0-0.1 [facility] Hematology Comments: CMP 2016-05-25 Glucose, Serum 85 65-99 BUN 6 6-24 Creatinine, Serum 0.89 0.57-1.00 eGFR If NonAfricn Am 72 >59 eGFR If Africn Am 83 >59 BUN/Creatinine Ratio 7 9-23 Sodium, Serum 144 134-144 Potassium, Serum 4.2 3.5-5.2 Chloride, Serum 104 96-106 Carbon Dioxide, Total 25 18-29 Calcium, Serum 8.6 8.7-10.2 Protein, Total, Serum 6.1 6.0-8.5 Albumin, Serum 4.0 3.5-5.5 Globulin, Total 2.1 1.5-4.5 A/G Ratio 1.9 1.1-2.5 Bilirubin, Total <0.2 0.0-1.2 Alkaline Phosphatase, S 131 39-117 AST (SGOT) 18 0-40 ALT (SGPT) 26 0-32 Xray : Chest (IN HOUSE) 2016-05-25 PROCEDURES Procedure Date Ordered Related Diagnosis Body Site INFLUENZA ASSAY W/OPTIC May 25, 2016 LAB NOT BILLED BY [facility] May 25, 2016 [facility] VISIT ESTABLISHED PATIENT May 25, 2016 CHEST X-RAY May 25, 2016 VENIPUNCT, ROUTINE* May 25, 2016 Office Visit, Est Pt., Level 5 May 25, 2016 IMMUNIZATIONS No Known Immunizations
--- OUTSIDE RECORDS SUMMARY | 2017-10-22 18:02 | XMS REPORT ---
Author Author HASEEB COOK Organization [employer] Address Unknown Phone Unavailable Care Team Providers Care Partition Assembly Machine Operator Name Role Phone HASEEB COOK CP Unavailable Allergies No Known Allergies Problems Problem Type Condition Code Onset Dates Condition Status Problem Mastodynia [...] Start Date End Date Status Dosage Hydrocodone-Acetaminophen [facility] [address]-96 5-325 MG Orally 3 times a day prn- must last 30 days. 1 tablet as needed Results No Known Results Summary Purpose [employer] Submission
--- OUTSIDE RECORDS SUMMARY | 2017-10-22 18:03 | XMS REPORT ---
Author Author HASEEB COOK [facility] Address [address] [place] [address] Care Team Providers Care Branch Specialist Name Role Phone HASEEB COOK Unavailable PROBLEMS Type Condition ICD9-CM Code TFE87-PS Code Onset Dates Condition Status SNOMED Code Problem Chronic pain syndrome G89.4 Active 969146112 Problem Cervical pain M54.2 Active 28000888 Problem Mixed hyperlipidemia E78.2 Active 010579779 Problem Infarction of distal end of right femur M87.051 Active 372047475 Problem Chronic obstructive pulmonary disease (COPD) suggested by initial evaluation J44.9 Active 69945825 Problem Gastroesophageal reflux disease without esophagitis K21.9 Active 079968102 Problem Arthritis M19.90 Active 9791403 Problem Psychiatric illness F99 Active 54212711 Problem 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 96914114 Problem Back pain at L4-L5 level M54.5 Active 319610616 Problem Chronic renal insufficiency, stage 1 N18.1 Active 092348640 Problem Migraine without aura and with status migrainosus, not intractable G43.001 Active 657929330 Problem Compression fracture T14.8 Active 817173535 ALLERGIES No Information ENCOUNTERS Encounter Location Date Diagnosis [facility] [id number] [address] 29 Aug, 2017 [facility] [id number] [address] 1846 21 Aug, 2017 Chronic pain syndrome G89.4 [facility] [address] [address] 8818 20 Aug, 2017 [facility] [address] [address] 4[address] 13 Aug, 2017 Arthritis M19.90 [facility] [id number] [place] [address] 41435- 5781 Aug, [place] [id number] [place] [address] 97626- 5061 Jul, Chronic pain syndrome G89.4 ; Chronic obstructive pulmonary disease (COPD) suggested by initial evaluation J44.9 ; Arthritis M19.90 ; Migraine without aura and with status migrainosus, not intractable G43.001 ; Gastroesophageal reflux disease without esophagitis K21.9 ; Mixed hyperlipidemia E78.2 ; Chronic renal insufficiency, stage 1 N18.1 and Closed compression fracture of L4 lumbar vertebra with delayed healing, subsequent encounter S32.040G [place] [id number] [place] [address] 27361- 5273 Jul, Chronic pain syndrome G89.4 [place] [id number] [place] [address] 05712- 7423 Jul, [place] [id number] [place] [address] 28664- 2430 Jul, [place] [id number] [place] [address] 50070- 7621 Jul, Arthritis M19.90 [place] [id number] [place] [address] 03002- 6652 Jul, Infarction of distal end of right femur M87.051 [place] [id number] [place] [address] 68744- 4037 Jun, Chronic pain syndrome G89.4 ; Chronic [...] M25.571 and Pain, joint, knee, right M25.561 [place] [address] [place] [address] 08899- 0523 Jun, Arthritis M19.90 [facility] [address] [address]- 1189 May, [facility] [id number] [place] [address] 70425- 9602 May, Chronic pain syndrome G89.4 and Migraine without aura and with status migrainosus, not intractable G43.001 [facility] [id number] [place] [address] 45037- 5106 May, Arthritis M19.90 [facility] [id number] [place] [address] 82368- 9275 May, Chronic obstructive pulmonary disease (COPD) suggested by initial evaluation J44.9 [facility] [id number] [place] [address] 32732- 9820 Apr, [facility] [id number] [place] [address] 86350- 2579 Apr, Arthritis M19.90 [facility] [id number] [place] [address] 54048- 2679 Mar, Arthritis M19.90 [facility] [id number] [place] [address] 40878- 2297 30 Feb, 2017 [facility] [address] [address]- 5330 Feb, [facility] [address] [address]- 5963 18 Feb, 2017 Chronic pain syndrome G89.4 [facility] [address] [address]- 6651 13 Feb, 2017 Migraine without aura and with status migrainosus, not intractable G43.001 ; Arthritis M19.90 ; Gastroesophageal reflux disease without esophagitis K21.9 ; Chronic pain syndrome G89.4 ; Chronic renal insufficiency, stage 1 N18.1 ; Mixed hyperlipidemia E78.2 ; Chronic obstructive pulmonary disease (COPD) suggested by initial evaluation J44.9 ; Skin infection L08.9 and Encounter for immunization Z23 [facility] [address] [address]- 8449 Jan, Migraine without aura and with status migrainosus, not intractable G43.001 [facility] [id number] [place] [address] 97637- 1400 Jan, Migraine without aura and with status migrainosus, not intractable G43.001 [facility] [id number] [place] [address] 33115- 1465 Jan, Arthritis M19.90 [facility] [id number] [place] [address] 92081- 6688 Jan, [place] [id number] [place] [address] 54098- 8134 Dec, Arthritis M19.90 [place] [id number] [place] [address] 31524- 1552 Nov, Gastroesophageal reflux disease without esophagitis K21.9 [place] [id number] [place] [address] 28251- 7421 Nov, Arthritis M19.90 [place] [id number] [place] [address] 46426- 9698 October, Chronic pain syndrome G89.4 ; Arthritis M19.90 ; Chronic renal insufficiency, stage 1 N18.1 ; Gastroesophageal reflux disease without esophagitis K21.9 ; Cervical pain M54.2 and Chronic obstructive pulmonary disease (COPD) suggested by initial evaluation J44.9 [place] [id number] [place] [address] 05460- 6265 October, [facility] [id number] [place] [address] 04244- 5340 October, Chronic obstructive pulmonary disease (COPD) suggested by initial evaluation J44.9 [place] [id number] [place] [address] 64600- 6454 October, 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 [place] [address] [address]- 3342 October, Mixed hyperlipidemia E78.2 ; Migraine without aura and with status migrainosus, not intractable G43.001 and 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 [facility] [address] [address]- 4691 October, [facility] [id number] [place] [address] 16107- 4989 October, [facility] [id number] [place] [address] 20958- 6168 October, [facility] [id number] [place] [address] 24307- 6988 October, [facility] [id number] [place] [address] 29156- 6068 October, [facility] [id number] [place] [address] 14500- 7264 Sep, Chronic pain syndrome G89.4 [facility] [id number] [place] [address] 09122- 9223 Sep, Chronic pain syndrome G89.4 [facility] [address] [address]- 7036 Sep, [facility] [address] [address]- 3897 Sep, [facility] [id number] [place] [address] 81609- 3617 Sep, Chronic pain syndrome G89.4 [facility] [id number] [place] [address] 54793- 0915 Aug, Chronic pain syndrome G89.4 [facility] [address] [address]- 8840 Aug, Chronic pain syndrome G89.4 and Mixed hyperlipidemia E78.2 [facility] [id number] [address]- 2140 Jul, [facility] [id number] [place] [address] 07745- 7483 Jun, [facility] [id number] [place] [address] 64872- 6461 Jun, Chronic pain syndrome G89.4 [facility] [id number] [place] [address] 76403- 5547 Jun, [facility] [id number] [place] [address] 91305- 5135 May, Fever chills R50.9 ; Chronic pain syndrome G89.4 ; Chronic renal insufficiency, stage 1 N18.1 ; Influenza B J10.1 ; Upper respiratory tract infection, unspecified type J06.9 and Migraine without aura and with status migrainosus, not intractable G43.001 [facility] [id number] [place] [address] 43024- 4250 May, [facility] [id number] [place] [address] 71972- 5851 Apr, [facility] [id number] [place] [address] 55169- 8144 Apr, [facility] [id number] [place] [address] 10020- 5627 Apr, [facility] [id number] [place] [address] 74822- 4406 Mar, [facility] [id number] [place] [address] 42003- 5548 Mar, [facility] [id number] [place] [address] 93514- 2049 Mar, Left anterior shoulder pain M25.512 [facility] [id number] [place] [address] 65655- 1425 Mar, Left anterior shoulder pain M25.512 ; Chronic pain syndrome G89.4 and Chronic renal insufficiency, stage 1 N18.1 [facility] [address] [address]- 6694 18 Mar, 2016 [facility] [id number] [place] [address] 46785- 8479 30 Feb, 2016 [facility] [address] [address]- 5712 Feb, [facility] [id number] [place] [address] 44433- 8426 Feb, [facility] [id number] [place] [address] 28705- 5804 Feb, Encounter for immunization Z23 [facility] [id number] [place] [address] 60360- 3171 Feb, [place] [id number] [place] [address] 72481- 5803 Feb, [facility] [id number] [place] [address] 60140- 5971 Feb, Chronic pain syndrome G89.4 ; Chronic renal insufficiency, stage 1 N18.1 ; Migraine without aura and with status migrainosus, not intractable G43.001 ; Gastroesophageal reflux disease without esophagitis K21.9 ; Mixed hyperlipidemia E78.2 and 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 [facility] [address] [address]- 7417 Jan, [facility] [address] [address]- 7038 Nov, Chronic pain syndrome G89.4 ; Chronic renal insufficiency, stage 1 N18.1 ; Migraine without aura and with status migrainosus, not intractable G43.001 and Gastroesophageal reflux disease without esophagitis K21.9 [facility] [address] [address]- 3870 October, [facility] [id number] [place] [address] 83762- 7789 October, [facility] [address] [address]- 0102 Sep, [facility] [id number] [place] [address] 80253- 6710 Sep, Back pain at L4-L5 level M54.5 and Compression fracture T14.8 [facility] [id number] [place] [address] 62424- 1660 Aug, [facility] [id number] [place] [address] 11072- 7891 Aug, [facility] [id number] [place] [address] 61990- 6537 Aug, Back pain at L4-L5 level M54.5 and Compression fracture T14.8 [facility] [id number] [place] [address] 55370- 7010 Aug, Rib pain on right side R07.81 ; Right hip pain M25.551 and Lumbar pain M54.5 [facility] [id number] [place] [address] 00034- 6594 Jul, [facility] [id number] [place] [address] 75078- 0715 Jul, [facility] [address] [place] [address] 81857- 4278 Jul, Chronic pain syndrome G89.4 ; Chronic renal insufficiency, stage 1 N18.1 ; Mixed hyperlipidemia E78.2 and Scleritis, left H15.002 [facility] [address] [address]- 8836 Jun, [facility] [id number] [place] [address] 73819- 3500 May, [facility] [id number] [place] [address] 71023- 2735 Apr, [facility] [id number] [place] [address] 90632- 4600 Apr, [facility] [id number] [place] [address] 94213- 8790 Apr, [facility] [id number] [place] [address] 64045- 1658 Mar, [facility] [id number] [place] [address] 10274- 8685 Mar, Chronic renal insufficiency, stage 1 N18.1 [facility] [id number] [place] [address] 30992- 0384 Mar, Arthritis M19.90 ; Encounter for immunization Z23 ; Chronic pain syndrome G89.4 ; Chronic renal insufficiency, stage 1 N18.1 ; Gastroesophageal reflux disease without esophagitis K21.9 and Mixed hyperlipidemia E78.2 [place] [id number] [place] [address] 18534- 1099 Mar, [facility] [id number] [place] [address] 48417- 2708 Feb, [facility] [id number] [place] [address] 15640- 6084 Feb, [facility] [id number] [place] [address] 00913- 1075 Dec, [facility] [id number] [place] [address] 42714- 8676 Dec, Unspecified myalgia and myositis 729.1 ; Sacroiliitis, not elsewhere classified 720.2 ; Headache 784.0 ; Renal insufficiency 593.9 ; Vitamin D deficiency 268.9 ; Fatigue 780.79 and Edema 782.3 [facility] [id number] [place] [address] 04993- 5722 Dec, [facility] [id number] [place] [address] 62782- 1528 Dec, [facility] [address] [address]- 0836 Dec, [facility] [address] [address]- 8185 Dec, [facility] [address] [address]- 9979 Dec, [facility] [id number] [place] [address] 99464- 9994 Nov, [facility] [address] [address]- 2297 Nov, [facility] [id number] [place] [address] 85927- 0877 Nov, [facility] [address] [address]- 7092 Nov, Unspecified myalgia and myositis 729.1 ; Nausea alone 787.02 ; Sacroiliitis, not elsewhere classified 720.2 ; Headache 784.0 and Renal insufficiency 593.9 [facility] [address] [address]- 7401 October, [facility] [address] [address]- 1387 October, [facility] [address] [address]- 6840 Sep, [facility] [address] [address]- 1239 Sep, [facility] [address] [address]- 8688 Aug, [facility] [address] [address]- 5037 Aug, [facility] [id number] [address]- 2163 Aug, [facility] [address] [address]- 1689 20 Aug, 2014 [facility] [place] [facility] [address] [id number] [place] [address]- 4679 Aug, [facility] [place] [facility] [address] [id number] [place] [address]- 9641 20 Aug, 2014 [facility] [place] [facility] [address] [id number] [place] [address]- 2618 13 Aug, 2014 [facility] [place] [facility] [address] [id number] [place] [address]- 1076 13 Aug, 2014 [facility] [place] [facility] [address] [id number] [place] [address]- 7519 Aug, [facility] [place] [facility] [address] [id number] [place] [address]- 1345 Aug, [facility] [place] [facility] [address] [facility] [id number] [place] [address]- 5534 Aug, [facility] [place] [facility] [address] [id number] [place] [address]- 0726 Aug, [facility] [place] [facility] [address] [id number] [place] [address]- 4196 Aug, [facility] [place] [facility] [address] [facility] [id number] [place] [address]- 9398 Aug, [facility] [place] [facility] [address] [id number] [place] [address]- 4534 Aug, [facility] [place] [facility] [address] [id number] [place] [address]- 3051 Aug, [facility] [place] [facility] [address] [id number] [place] [address]- 6682 Jul, [facility] [place] [facility] [address] [id number] [place] [address]- 4533 Jul, [facility] [place] [facility] [address] [facility] [id number] [place] [address]- 5305 Jul, [facility] [place] [facility] [address] [id number] [place] [address]- 9857 Jul, 2014 [facility] [place] [facility] [address] [id number] [place] [address]- 8657 Jul, 2014 [facility] [place] [facility] [address] [id number] [place] [address]- 2861 Jul, 2014 [facility] [place] [facility] [address] [id number] [place] [address]- 4717 Jul, 2014 [facility] [place] [facility] [address] [id number] [place] [address]- 7165 Jul, 2014 [facility] [place] [facility] [address] [id number] [place] [address]- 5247 Jul, 2014 [facility] [place] [facility] [address] [facility] [id number] [place] [address]- 5973 Jul, 2014 [facility] [place] [facility] [address] [facility] [id number] [address]- 5355 Jul, 2014 [facility] [place] [facility] [address] [facility] [id number] [place] [address]- 2170 Jul, 2014 [facility] [place] [facility] [address] [facility] [id number] [place] [address]- 3377 Jul, 2014 [facility] [place] [facility] [address] [facility] [id number] [address]- 6811 Jul, 2014 [facility] [place] [facility] [address] [id number] [address]- 1931 Jul, 2014 [facility] [place] [facility] [address] [id number] [place] [address]- 3108 Jul, 2014 [facility] [place] [facility] [address] [facility] [id number] [place] [address]- 4996 Jun, [facility] [place] [facility] [address] [facility] [id number] [place] [address]- 5797 Jun, [facility] [place] [facility] [address] [facility] [id number] [place] [address]- 0026 15 Jun, 2014 [facility] [address] [id number] [place] [address]- 3422 Jun, [facility] [address] [id number] [place] [address]- 3862 Jun, [facility] [address] [id number] [place] [address]- 6494 Jun, [facility] [address] [id number] [place] [address]- 8198 Jun, [facility] [address] [id number] [place] [address]- 6432 Jun, [facility] [address] [id number] [place] [address]- 6695 Jun, [facility] [address] [id number] [place] [address]- 1137 Jun, [facility] [address] [id number] [place] [address]- 4949 Jun, [facility] [address] [id number] [place] [address] Jun, [facility] [address] [id number] [place] [address] May, [facility] [address] [id number] [place] [address] 29 May, 2014 [facility] [address] [id number] [place] [address] May, [facility] [place] [facility] [address] [id number] [place] [address] 22 May, 2014 [facility] [place] [facility] [address] [id number] [place] [address] 18 May, 2014 [facility] [address] [id number] [place] [address] 16 May, 2014 [facility] [place] [facility] [address] [id number] [place] [address] 15 May, 2014 [facility] [place] [facility] [address] [id number] [place] [address] 12 May, 2014 [facility] [place] [facility] [address] [id number] [place] May, [facility] [place] [facility] [address] [id number] [place] [address] May, [facility] [place] [facility] [address] [id number] [place] [address] May, [facility] [place] [facility] [address] [id number] [place] [address] May, [facility] [place] [facility] [address] [id number] [place] [address] May, [facility] [place] [facility] [address] [id number] [place] [address] 04 May, 2014 [facility] [place] [facility] [address] [id number] [place] [address] May, [facility] [place] [facility] [address] [id number] [place] [address] 04 May, 2014 [facility] [place] [facility] [address] [id number] [place] [address] May, [facility] [place] [facility] [address] [id number] [place] [address] 03 May, 2014 [facility] [place] [facility] [address] [id number] [place] [address] Apr, [facility] [place] [facility] [address] [id number] [place] [address] Apr, [facility] [place] [facility] [address] [id number] [place] [address] Apr, [facility] [place] [facility] [address] [id number] [address] Apr, [facility] [place] [facility] [address] [id number] [place] [address] Apr, [facility] [place] [facility] [address] [id number] [place] [address] Apr, [facility] [place] [facility] [address] [id number] [place] [address]- 2015 Apr, [facility] [place] [facility] [address] [id number] [place] [address] Apr, [facility] [place] [facility] [address] [id number] [place] [address] 17 Mar, 2014 [facility] [place] [facility] [address] [id number] [place] [address] 4023 14 Mar, 2014 [facility] [place] [facility] [address] [id number] [place] [address] 3023 Mar, [facility] [place] [facility] [address] [id number] [place] [address]- 0490 30 Feb, 2014 [facility] [place] [facility] [address] [id number] [place] [address]- 1799 30 Feb, 2014 [facility] [place] [facility] [address] [id number] [place] [address] 2684 26 Feb, 2013 [facility] [place] [facility] [address] [id number] [place] [address] 3326 26 Feb, 2013 [facility] [place] [facility] [address] [id number] [place] [address]- 2544 10 Feb, 2013 [facility] [place] [facility] [address] [id number] [place] [address]- 2544 10 Feb, 2013 [facility] [place] [facility] [address] [id number] [place] [address]- 9410 02 Feb, 2013 [facility] [place] [facility] [address] [id number] [place] [address]- 6812 02 Feb, 2013 [facility] [place] [facility] [address] [id number] [place] [address] 4036 Jan, [facility] [place] [facility] [address] [id number] [place] [address] 3380 Jan, [facility] [place] [facility] [address] [id number] [place] [address] 6226 Jan, [facility] [place] [facility] [address] [id number] [place] [address]- 8676 Jan, [facility] [place] [facility] [address] [id number] [place] [address]- 2600 Jan, [facility] [place] [facility] [address] [id number] [place] [address]- 4637 Jan, [facility] [place] [facility] [address] [id number] [place] [address]- 5228 Dec, [facility] [place] [facility] [address] [id number] [place] [address]- 6502 Dec, [facility] [place] [facility] [address] [id number] [place] [address]- 4700 Dec, [facility] [place] [facility] [address] [id number] [place] [address]- 7941 Dec, [facility] [place] [facility] [address] [id number] [place] [address]- 1658 Nov, [facility] [place] [facility] [address] [id number] [place] [address]- 4835 Nov, [facility] [place] [facility] [address] [id number] [place] [address]- 0119 Nov, [facility] [place] [facility] [address] [id number] [place] [address]- 1655 Nov, [facility] [place] [facility] [address] [id number] [place] [address]- 6945 Nov, [facility] [place] [facility] [address] [id number] [place] [address]- 4637 Nov, [facility] [place] [facility] [address] [id number] [place] [address]- 4939 Nov, [facility] [place] [facility] [address] [id number] [place] [address]- 1666 Nov, [facility] [place] [facility] [address] [id number] [place] [address]- 7797 Nov, [facility] [place] [facility] [address] [id number] [place] [address]- 7350 Nov, [facility] [place] [facility] [address] [id number] [place] [address]- 0276 Nov, [facility] [place] [facility] [address] [id number] [place] [address]- 0212 Nov, [facility] [place] [facility] [address] [id number] [place] [address]- 5561 Nov, [facility] [place] [facility] [address] [id number] [place] [address]- 3210 Nov, [facility] [place] [facility] [address] [id number] [place] [address]- 3780 Nov, [facility] [place] [facility] [address] [id number] [place] [address]- 6868 Nov, [facility] [place] [facility] [address] [id number] [place] [address]- 5972 Nov, [facility] [place] [facility] [address] [id number] [address]- 4934 Nov, [facility] [place] [facility] [address] [id number] [place] [address]- 2616 Nov, [facility] [place] [facility] [address] [id number] [place] [address]- 2461 Nov, [facility] [place] [facility] [address] [id number] [place] [address]- 8177 Nov, [facility] [place] [facility] [address] [id number] [place] [address]- 5450 Nov, [facility] [place] [facility] [address] [id number] [place] [address]- 6918 Nov, [facility] [place] [facility] [address] [id number] [place] [address]- 6727 Nov, [facility] [place] [facility] [address] [id number] [place] [address]- 7961 Nov, [facility] [place] [facility] [address] [id number] [place] [address]- 3294 Nov, [facility] [place] [facility] [address] [id number] [place] [address]- 8362 October, [facility] [place] [facility] [address] [id number] [place] [address]- 4655 October, [facility] [place] [facility] [address] [id number] [place] [address]- 5769 October, [facility] [place] [facility] [address] [id number] [place] [address]- 4078 October, [facility] [place] [facility] [address] [id number] [place] [address]- 8079 October, [facility] [place] [facility] [address] [id number] [place] [address]- 1037 October, [facility] [place] [facility] [address] [id number] [place] [address]- 7000 October, [facility] [place] [facility] [address] [id number] [place] [address]- 1422 October, [facility] [place] [facility] [address] [id number] [place] [address]- 4437 October, [facility] [place] [facility] [address] [id number] [place] [address]- 6828 October, [facility] [place] [facility] [address] [id number] [place] [address] October, [facility] [place] [facility] [address] [id number] [place] [address]- 5436 October, [facility] [place] [facility] [address] [id number] [place] [address]- 2918 October, [facility] [place] [facility] [address] [id number] [place] [address]- 7107 October, [facility] [place] [facility] [address] [id number] [place] [address]- 8605 October, [facility] [place] [facility] [address] [id number] [place] [address]- 0463 October, [facility] [place] [facility] [address] [id number] [place] [address]- 7540 October, [facility] [place] [facility] [address] [id number] [place] [address]- 2968 Sep, [facility] [place] [facility] [address] [id number] [place] [address]- 2824 Sep, [facility] [place] [facility] [address] [id number] [place] [address]- 3311 Sep, [facility] [place] [facility] [address] [id number] [place] [address]- 8552 Sep, [facility] [place] [facility] [address] [id number] [place] [address]- 4052 Sep, [facility] [place] [facility] [address] [id number] [place] [address]- 1893 Sep, [facility] [place] [facility] [address] [id number] [place] [address]- 7226 Sep, [facility] [place] [facility] [address] [id number] [place] [address]- 7637 Aug, [facility] [place] [facility] [address] [id number] [place] [address]- 3667 Aug, [facility] [place] [facility] [address] [id number] [place] [address]- 5897 08 Aug, 2013 [facility] [place] [facility] [address] [id number] [place] [address]- 0046 Aug, [facility] [place] [facility] [address] [id number] [place] [address]- 4555 Aug, [facility] [place] [facility] [address] [facility] [id number] [place] [address]- 9132 Aug, [facility] [place] [facility] [address] [id number] [place] [address]- 8106 Jul, [facility] [place] [facility] [address] [id number] [place] [address]- 8914 Jul, [facility] [place] [facility] [address] [id number] [place] [address]- 3504 Jul, [facility] [place] [facility] [address] [facility] [id number] [place] [address]- 1264 Jul, [facility] [place] [facility] [address] [id number] [place] [address]- 8301 Jul, [facility] [place] [facility] [address] [facility] [id number] [place] [address]- 2019 Jul, [facility] [place] [facility] [address] [facility] [id number] [place] [address]- 7498 Jul, [facility] [place] [facility] [address] [facility] [id number] [place] [address]- 5130 Jul, [facility] [place] [facility] [address] [facility] [id number] [place] [address]- 9956 Jul, [facility] [place] [facility] [address] [id number] [place] [address]- 7046 Jul, [facility] [place] [facility] [address] [facility] [id number] [place] [address]- 6266 Jun, [facility] [place] [facility] [address] [facility] [id number] [place] [address]- 3727 Jun, [facility] [place] [facility] [address] [id number] [place] [address]- 0981 Jun, [facility] [address] [id number] [place] [address]- 7003 Jun, [facility] [place] [facility] [address] [id number] [place] [address]- 0596 Jun, [facility] [address] [id number] [place] [address]- 7710 Jun, [facility] [address] [id number] [place] [address]- 3459 Jun, [facility] [address] [id number] [place] [address]- 2108 May, [facility] [address] [id number] [place] [address]- 1150 May, [facility] [address] [id number] [place] [address]- 2200 May, [facility] [address] [id number] [place] [address]- 6357 May, [facility] [address] [id number] [place] [address]- 0840 May, [facility] [address] [id number] [place] [address]- 9270 May, [facility] [place] [facility] [address] [id number] [place] [address]- 2278 Apr, [facility] [place] [facility] [address] [id number] [place] [address]- 8274 Apr, [facility] [place] [facility] [address] [id number] [place] [address]- 3252 Apr, [facility] [place] [facility] [address] [id number] [place] [address]- 1304 15 Apr, 2013 [facility] [place] [facility] [address] [id number] [place] [address]- 9840 15 Apr, 2013 [facility] [place] [facility] [address] [id number] [place] [address]- 9158 14 Apr, 2013 [facility] [place] [facility] [address] [id number] [place] [address]- 1340 Apr, [facility] [place] [facility] [address] [id number] [place] [address]- 7336 Apr, [facility] [place] [facility] [address] [id number] [place] [address]- 4188 Apr, [facility] [place] [facility] [address] [id number] [place] [address]- 3429 Apr, [facility] [place] [facility] [address] [id number] [place] [address]- 2457 Apr, [facility] [place] [facility] [address] [id number] [place] [address]- 3103 Apr, [facility] [place] [facility] [address] [id number] [place] [address]- 9544 Apr, [facility] [place] [facility] [address] [id number] [place] [address]- 8904 Mar, [facility] [place] [facility] [address] [id number] [place] [address]- 7749 Mar, [facility] [place] [facility] [address] [id number] [address]- 3801 29 Mar, 2013 [facility] [place] [facility] [address] [id number][place] [address]- 1795 28 Mar, 2013 [facility] [place] [facility] [address] [id number] [place] [address]- 0483 28 Mar, 2013 [facility] [place] [facility] [address] [id number][place] [address]- 8602 16 Mar, 2013 [facility] [place] [facility] [address] [id number] [place] [address]- 3859 16 Mar, 2013 [facility] [place] [facility] [address] [id number] [place] [address]- 9069 15 Mar, 2012 [facility] [address] [id number] [place] [address]- 9987 15 Mar, 2012 [facility] [place] [facility] [address] [id number] [place] [address]- 1647 15 Mar, 2012 [facility] [address] [id number] [place] [address]- 0753 15 Mar, 2012 [facility] [place] [facility] [address] [id number] [place] [address]- 3672 13 Mar, 2012 [facility] [address] [id number] [place] [address]- 2084 10 Mar, 2012 [facility] [place] [facility] [address] [id number] [place] [address]- 9468 10 Mar, 2012 [facility] [place] [facility] [address] [id number] [place] [address]- 4783 2012 [facility] [address] [id number] [place] [address]- 4937 03 Mar, 2013 [facility] [place] [facility] [address] [id number] [place] [address]- 7720 27 Feb, 2012 [facility] [address] [id number] [place] [address]- 0750 26 Sep, 2012 [facility] [place] [facility] [address] [id number] [place] [address]- 2542 25 Sep, 2012 [facility] [place] [facility] [address] [id number] [place] [address]- 2547 24 Sep, 2012 [facility] [place] [facility] [address] [id number] [place] [address]- 2542 23 Sep, 2012 [facility] [place] [facility] [address] [id number] [place] [address]- 254 20 Sep, 2012 [facility] [place] [facility] [address] [id number] [place] 4720 18 Sep, 2012 [facility] [place] [facility] [address] [id number] [place] [address]- 3987 17 Feb, 2012 [facility] [place] [facility] [address] [id number] [place] [address]- 7265 11 Feb, 2012 [facility] [place] [facility] [address] [id number] [place] [address]- 4352 09 Sep, 2012 [facility] [place] [facility] [address] [id number] [place] [address]- 4811 09 Sep, 2012 [facility] [place] [facility] [address] [id number] [place] [address]- 3103 08 Sep, 2012 [facility] [place] [facility] [address] [id number] [place] [address]- 0145 06 Feb, 2012 [facility] [place] [facility] [address] [id number] [place] [address]- 0149 06 Feb, 2012 [facility] [place] [facility] [address] [id number] [place] [address]- 6198 04 Feb, 2012 [facility] [place] [facility] [address] [id number] [place] [address]- 3748 26 Jan, 2013 [facility] [place] [facility] [address] [id number] [place] [address]- 6456 23 Jan, 2013 [facility] [place] [facility] [address] [id number] [place] [address]- 3925 22 Jan, 2013 [facility] [place] [facility] [address] [id number][place] [address]- 4446 16 Jan, 2013 [facility] [place] [facility] [address] [id number] [place] [address]- 2912 15 Jan, 2013 [facility] [place] [facility] [address] [id number] [place] [address]- 6740 14 Jan, 2013 [facility] [place] [facility] [address] [id number] [place] [address]- 1317 07 Jan, 2013 [facility] [place] [facility] [address] [id number] [address]- 4225 Jan, [facility] [place] [facility] [address] [id number] [place] [address]- 7177 Jan, [facility] [place] [facility] [address] [id number] [place] [address]- 8938 Dec, [facility] [place] [facility] [address] [id number] [place] [address]- 8491 Dec, [facility] [place] [facility] [address] [id number] [place] [address]- 4815 Dec, [facility] [place] [facility] [address] [id number] [place] [address]- 1733 Dec, [facility] [place] [facility] [address] [id number] [place] [address]- 2587 Dec, [facility] [place] [facility] [address] [id number] [place] [address]- 8892 Dec, [facility] [place] [facility] [address] [id number] [place] [address]- 4980 Dec, [facility] [place] [facility] [address] [id number] [place] [address]- 5834 Dec, [facility] [place] [facility] [address] [id number] [place] [address]- 2209 Nov, [facility] [place] [facility] [address] [id number] [place] [address]- 8308 Nov, [facility] [place] [facility] [address] [id number] [place] [address]- 3091 Nov, [facility] [place] [facility] [address] [id number] [place] [address]- 2410 Nov, [facility] [place] [facility] [address] [id number] [place] [address]- 3174 Nov, [facility] [place] [facility] [address] [id number] [place] [address]- 9724 Nov, [facility] [place] [facility] [address] [id number] [place] [address]- 4738 18 Nov, 2012 [facility] [place] [facility] [address] [id number] [place] [address]- 2770 17 Nov, 2012 [facility] [place] [facility] [address] [id number] [place] [address]- 7262 14 Nov, 2012 [facility] [place] [facility] [address] [id number] [place] [address]- 2518 Nov, [facility] [place] [facility] [address] [id number] [place] [address]- 4001 Nov, [facility] [place] [facility] [address] [id number] [place] [address] Nov, [facility] [place] [facility] [address] [id number] [place] [address] Nov, [facility] [place] [facility] [address] [id number] [place] [address] Nov, [facility] [place] [facility] [address] [id number] [place] [address] Nov, [facility] [place] [facility] [address] [id number] [place] [address] 98[address] Nov, [facility] [place] [facility] [address] [id number] [place] [address] Nov, [facility] [place] [facility] [address] [id number] [place] [address] Nov, [facility] [place] [facility] [address] [id number] [place] [address] October, [facility] [place] [facility] [address] [id number] [place] [address] October, [facility] [place] [facility] [address] [id number] [place] [address] October, [facility] [place] [facility] [address] [id number] [place] [address] October, [facility] [address] [id number] [place] [address] October, [facility] [address] [id number] [place] [address] October, [facility] [address] [id number] [place] [address] October, [facility] [address] [id number] [place] [address] 8448 October, [facility] [address] [id number] [place] [address] 18[address] Sep, [facility] [address] [id number] [place] [address] 235[address] Sep, [facility] [address] [id number] [place] [address] 12[address] Sep, [facility] [address] [id number] [place] [address]- 1836 Sep, [facility] [address] [id number] [place] [address]- [address]841 Sep, [facility] [address] [id number] [place] [address] 59[address] Sep, [facility] [address] [id number] [address] Sep, [facility] [place] [facility] [address] [id number][place] [address] Aug, [facility] [place] [facility] [address] [id number] [place] [address] 6599 Aug, [facility] [place] [facility] [address] [id number] [place] [address] Aug, [facility] [place] [facility] [address] [id number] [place] [address] 2590 Aug, [facility] [place] [facility] [address] [id number] [place] [address]- [address] 04 Aug, 2012 [facility] [address] [id number] [place] [address]679 Aug, [facility] [address] [id number] [place] [address]- 9296 Aug, [facility] [address] [id number] [place] [address]196 Aug, [facility] [address] [id number] [place] [address]226 Jul, [facility] [address] [id number] [place] [address] 8025 Jul, [facility] [address] [id number] [place] [address] 32[address] Jun, [facility] [address] [id number] [place] [address] 117[address] Jun, [facility] [address] [id number] [place] [address]- 1509 Jun, [facility] [address] [id number] [place] [address] 4[address] Jun, [facility] [address] [id number] [place] [address] Jun, [facility] [address] [id number] [place] [address]- 9816 May, [facility] [address] [id number] [place] [address]- 1424 May, [facility] [address] [id number] [place] [address]- [address] May, [facility] [address] [id number] [place] [address] 2546 May, [facility] [address] [id number] [place] [address] 5399 May, [facility] [place] [facility] [address] [id number] [place] [address] 4016 May, [facility] [place] [facility] [address] [id number] [place] [address]- 1518 May, [facility] [place] [facility] [address] [id number] [place] [address]- 1755 May, [facility] [place] [facility] [address] [id number] [place] [address]- 6515 Apr, [facility] [place] [facility] [address] [id number] [place] [address]- 2432 Apr, [facility] [place] [facility] [address] [id number] [place] [address]- 488[address] Apr, [facility] [place] [facility] [address] [id number] [place] [address]- 1170 Apr, [facility] [place] [facility] [address] [id number] [place] [address]- [address]102 Apr, [facility] [place] [facility] [address] [id number] [place] [address]- 6255 Apr, [facility] [place] [facility] [address] [id number] [place] [address]- 4057 16 Apr, 2012 [facility] [place] [facility] [address] [id number] [place] [address]- 6055 16 Apr, 2012 [facility] [place] [facility] [address] [id number] [address]149 15 Apr, 2012 [facility] [place] [facility] [address] [id number] [place] [address]- 9295 15 Apr, 2012 [facility] [place] [facility] [address] [id number] [place] [address]- 2342 Apr, [facility] [place] [facility] [address] [id number][place] [address]- [address]80 12 Apr, 2012 [facility] [place] [facility] [address] [id number] [address]- 1002 Apr, [facility] [place] [facility] [address] [id number] [place] [address]- 1014 Apr, [facility] [place] [facility] [address] [id number][place] [address]- 8424 Apr, [facility] [place] [facility] [address] [facility] [id number] [place] [address]- 6356 Apr, [facility] [place] [facility] [address] [id number] [place] [address] Apr, [facility] [place] [facility] [address] [id number] [place] [address]- 8515 Apr, [facility] [place] [facility] [address] [id number] [place] [address]- 0030 Mar, [facility] [place] [facility] [address] [id number] [place] [address]- 7808 Mar, [facility] [place] [facility] [address] [id number] [place] [address]- 2446 Mar, [facility] [place] [facility] [address] [id number][place] [address]- 4575 Mar, [facility] [place] [facility] [address] [facility] [id number][place] [address]- 1233 Mar, [facility] [place] [facility] [address] [id number][place] [address]- 0549 15 Mar, 2012 [facility] [place] [facility] [address] [facility] [id number][place] [address]- 6218 15 Mar, 2012 [facility] [place] [facility] [address] [id number][place] [address]- 0773 Mar, [facility] [place] [facility] [address] [facility] [id number][place] [address]- 2564 Mar, [facility] [place] [facility] [address] [facility] [id number] [place] [address]- 0747 Mar, [facility] [place] [facility] [address] [id number] [place] [address]- 7127 Mar, [facility] [place] [facility] [address] [id number] [place] [address] 27 Feb, 2012 [facility] [place] [facility] [address] [id number] [place] [address] 26 Feb, 2012 [facility] [place] [facility] [address] [id number] [place] [address] 12 Feb, 2012 [facility] [place] [facility] [address] [id number] [place] [address] 30 Jan, 2012 [facility] [place] [facility] [address] [id number] [place] [address] 74[address] Jan, [facility] [place] [facility] [address] [id number] [place] [address] 9797 Jan, [facility] [place] [facility] [address] [id number] [place] [address] Jan, [facility] [place] [facility] [address] [id number] [place] [address] 8477 Jan, [facility] [place] [facility] [address] [id number] [place] [address] 3460 Jan, [facility] [place] [facility] [address] [id number] [place] [address] 5646 Jan, [facility] [place] [facility] [address] [id number] [place] [address] 10[address] Jan, [facility] [place] [facility] [address] [id number] [place] [address] 254 Jan, [facility] [place] [facility] [address] [id number] [place] [address] 7744 Jan, [facility] [place] [facility] [address] [id number] [place] [address] 2546 Dec, [facility] [place] [facility] [address] [id number] [place] [address] Dec, [facility] [place] [facility] [address] [id number] [place] [address] 5[address] 27 Dec, 2011 [facility] [place] [facility] [address] [id number] [place] [address] 8919 Dec, [facility] [place] [facility] [address] [id number] [place] [address] 8597 24 Dec, 2011 [facility] [place] [facility] [address] [id number] [place] [address]- 3792 20 Dec, 2011 [facility] [place] [facility] [address] [id number] [place] [address] 18 Dec, 2011 [facility] [place] [facility] [address] [id number] [place] [address] 4113 17 Dec, 2011 [facility] [place] [facility] [address] [id number] [place] [address] 8306 Dec, [facility] [place] [facility] [address] [id number] [place] [address] 5889 Dec, [facility] [place] [facility] [address] [id number] [place] [address] 7928 Dec, [facility] [place] [facility] [address] [id number] [place] [address]- 0181 Dec, [facility] [place] [facility] [address] [id number] [place] [address]- 8318 Dec, [facility] [place] [facility] [address] [id number] [place] [address] 3540 Nov, [facility] [place] [facility] [address] [id number] [place] [address] 9033 Nov, [facility] [place] [facility] [address] [id number] [place] [address]- 3435 Nov, [facility] [place] [facility] [address] [id number] [place] [address] 6198 Nov, [facility] [place] [facility] [address] [id number] [place] [address]- 6528 Nov, [facility] [address] [id number] [place] [address] 1519 Nov, [facility] [place] [facility] [address] [id number] [place] [address]- 0540 October, [facility] [address] [id number] [place] [address] 5925 October, [facility] [place] [facility] [address] [id number] [place] [address] 7284 October, [facility] [address] [id number] [place] [address] 3013 October, [facility] [place] [facility] [address] [id number] [place] [address] 6477 October, [facility] [address] [id number] [place] [address]- 2134 October, [facility] [address] [id number] [place] [address] 0235 October, [facility] [address] [id number] [place] [address] 7993 30 Sep, 2011 [facility] [place] [facility] [address] [id number] [place] [address] 0547 Sep, [facility] [place] [facility] [address] [id number] [place] [address] 9644 Sep, [facility] [place] [facility] [address] [id number] [place] [address]- 1710 Sep, [facility] [place] [facility] [address] [id number] [place] [address] 480[address] Sep, [facility] [place] [facility] [address] [id number] [place] [address] 4408 Sep, [facility] [place] [facility] [address] [id number] [place] [address] 16 Sep, 2011 [facility] [place] [facility] [address] [id number] [place] [address] 4253 06 Sep, 2011 [facility] [place] [facility] [address] [id number] [place] [address] Sep, [facility] [place] [facility] [address] [id number] [place] [address]- 6676 04 Sep, 2011 [facility] [place] [facility] [address] [id number] [place] [address] 3470 Sep, [facility] [place] [facility] [address] [id number] [place] [address] 0104 02 Sep, 2011 [facility] [place] [facility] [address] [id number] [place] [address] 7402 15 Aug, 2011 [facility] [place] [facility] [address] [facility] [id number] [place] [address]- 8203 13 Aug, 2011 [facility] [place] [facility] [address] [id number] [place] [address]- 1763 13 Aug, 2011 [facility] [place] [facility] [address] [id number] [place] [address]- 1298 Aug, [facility] [place] [facility] [address] [id number] [place] [address]- 2434 29 Jul, 2011 [facility] [place] [facility] [address] [facility] [id number] [place] [address]- 6644 28 Jul, 2011 [facility] [place] [facility] [address] [id number] [place] [address]- 1458 22 Jul, 2011 [facility] [place] [facility] [address] [id number] [place] [address]- 7414 Jul, [facility] [place] [facility] [address] [id number] [place] [address]- 2243 20 Jul, 2011 [facility] [place] [facility] [address] [facility] [id number] [place] [address]- 3611 16 Jul, 2011 [facility] [place] [facility] [address] [facility] [id number] [place] [address]- 3925 16 Jul, 2011 [facility] [address] [id number] [place] [address]- 2986 09 Jul, 2011 [facility] [place] [facility] [address] [id number] [place] [address]- 9626 07 Jul, 2011 [facility] [address] [id number] [place] [address]- 9966 Jul, [facility] [place] [facility] [address] [id number] [place] [address]- 4926 Jul, [facility] [address] [id number] [place] [address]- 0486 Jul, [facility] [place] [facility] [address] [id number] [place] [address]- 2126 Jul, [facility] [address] [id number] [place] [address]- 5282 Jun, [facility] [address] [id number] [place] [address]- 0593 Jun, [facility] [place] [facility] [address] [id number] [place] [address]- 6470 Jun, [facility] [address] [id number] [place] [address]- 4306 Jun, [facility] [place] [facility] [address] [id number] [place] [address]- 8646 Jun, [facility] [place] [facility] [address] [id number] [place] [address]- 9027 Jun, [facility] [place] [facility] [address] [id number] [place] [address]- 6553 Jun, [facility] [place] [facility] [address] [id number] [place] [address]- 6446 Jun, [facility] [place] [facility] [address] [id number] [place] [address]- 8725 Jun, [facility] [place] [facility] [address] [id number] [place] [address]- 0617 Jun, [facility] [place] [facility] [address] [id number] [place] [address]- 9043 May, [facility] [place] [facility] [address] [id number] [place] [address]- 7711 May, [facility] [place] [facility] [address] [id number] [place] [address]- 0314 May, [facility] [place] [facility] [address] [id number] [place] [address] May, [facility] [place] [facility] [address] [id number] [place] [address]- 2623 Apr, [facility] [place] [facility] [address] [id number] [place] [address]- 5494 Apr, [facility] [place] [facility] [address] [id number] [place] [address]- 6409 Apr, [facility] [place] [facility] [address] [id number] [place] [address]- 1052 Apr, [facility] [place] [facility] [address] [id number] [address]- 1226 Apr, [facility] [place] [facility] [address] [id number] [place] [address]- 3114 31 Mar, 2011 [facility] [place] [facility] [address] [id number] [address]- 6075 Mar, [facility] [place] [facility] [address] [id number] [place] [address]- 9278 Mar, [facility] [place] [facility] [address] [id number] [place] [address]- 8106 Mar, [facility] [place] [facility] [address] [id number][place] [address] 3696 28 May, 2010 [facility] [place] [facility] [address] [id number][place] [address]- 3156 22 May, 2010 [facility] [address] [id number] [place] [address]- 1076 17 May, 2010 [facility] [place] [facility] [address] [id number] [place] [address]- 1316 17 May, 2010 [facility] [place] [facility] [address] [facility] [id number] [place] [address]- 7246 15 May, 2010 [facility] [place] [facility] [address] [id number] [place] [address]- 5677 09 May, 2010 [facility] [address] [id number] [place] [address]- 5976 08 May, 2010 [facility] [place] [facility] [address] [id number] [place] [address]- 9440 May, [facility] [place] [facility] [address] [facility] [id number] [place] [address]- 9857 29 Apr, 2010 [facility] [place] [facility] [address] [facility] [id number] [place] [address]- 6815 16 Apr, 2010 [facility] [place] [facility] [address] [facility] [id number] [place] [address]- 0621 16 Apr, 2010 [facility] [place] [facility] [address] [facility] [id number] [place] [address]- 8103 15 Apr, 2010 [facility] [place] [facility] [address] [facility] [id number][place] [address]- 3137 08 Apr, 2010 [facility] [place] [facility] [address] [facility] [id number][place] [address]- 4782 05 Apr, 2010 [facility] [place] [facility] [address] [facility] [id number] [address]- 3041 04 Apr, 2010 [facility] [place] [facility] [address] [facility] [id number][place] [address]- 4739 03 Apr, 2010 [facility] [place] [facility] [address] [facility] [id number][place] [address]- 9063 21 Mar, 2010 [facility] [place] [facility] [address] [id number] [address]- 2546 11 Jan, 2010 [facility] [address] [id number] [address] 6166 15 Nov, 2009 [facility] [id number] [address] 25[address] October, [facility] [id number] [address] 2546 Sep, [facility] [id number] [address]- 2546 Aug, [facility] [id number] [place] [address] 2546 Jul, [facility] [id number] [address]- 2546 Jun, IMMUNIZATIONS No Known Immunizations SOCIAL HISTORY Never Assessed REASON FOR VISIT medication refill PLAN OF CARE VITAL SIGNS MEDICATIONS Medication Instructions Dosage Frequency Start Date End Date Duration Status Carafate 1 GM 1 tablet on an empty stomach before meals 8h Active RESULTS No Results PROCEDURES No Known [...] disorder, dependent personality disorder. Being seen by [facility] Medical History chonic pain [...]
--- OUTSIDE RECORDS SUMMARY | 2017-10-22 18:04 | XMS REPORT ---
Author Author HASEEB COOK Organization [facility] Address [address] [place] [address] Care Team Providers Care Outbound Supervisor Name Role Phone HASEEB COOK Unavailable PROBLEMS Type Condition ICD9-CM Code CIO14-NE Code Onset Dates Condition Status SNOMED Code Problem Arthritis M19.90 Active 9676256 Problem Mixed hyperlipidemia E78.2 Active 651799700 Problem Chronic pain syndrome G89.4 Active 848091175 Problem Chronic obstructive pulmonary disease (COPD) suggested by initial evaluation J44.9 Active 01396367 Problem Gastroesophageal reflux disease without esophagitis K21.9 Active 569356303 Problem 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
--- OUTSIDE RECORDS SUMMARY | 2017-10-22 18:04 | XMS REPORT ---
Author Author HASEEB COOK Organization [facility] Address [address] [place] [address] Care Team Providers Care Service Operator Name Role Phone HASEEB COOK Unavailable PROBLEMS Type Condition ICD9-CM Code [id number] Code Onset Dates Condition Status SNOMED Code Problem Arthritis M19.90 Active 2704090 Problem Mixed hyperlipidemia E78.2 Active 123482345 Problem Chronic pain syndrome G89.4 Active 331800055 Problem Chronic obstructive pulmonary disease (COPD) suggested by initial evaluation J44.9 Active 90623607 Problem Gastroesophageal reflux disease without esophagitis K21.9 Active 499394438 Problem 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 Being seen by [facility] Medical History chonic pain since [...]
--- OUTSIDE RECORDS SUMMARY | 2017-10-22 18:05 | XMS REPORT ---
Author Author HASEEB COOK Organization [employer] Address Unknown Phone Unavailable Care Team Providers Care Rn Clinical Documentation Name Role Phone HASEEB COOK CP Unavailable [...] Start Date End Date Status Dosage Hydrocodone-Acetaminophen [facility] [address]-13 5-325 MG Orally 2 times a day prn 1 tablet as needed Results No Known Results Summary Purpose [employer] Submission
--- OUTSIDE RECORDS SUMMARY | 2017-10-22 18:05 | XMS REPORT ---
Author Author HASEEB COOK Organization [employer] Address Unknown Phone Unavailable Care Team Providers Care Well Logging [employer] Name Role Phone HASEEB COOK CP Unavailable [...] Start Date End Date Status Dosage Hydrocodone-Acetaminophen [facility] [address]-35 5-325 MG Orally 3 times a day prn- must last 4 weeks. Appt needed before next refill. 1-2 tablet as needed Results No Known Results Summary Purpose [employer] Submission
--- OUTSIDE RECORDS SUMMARY | 2017-10-22 18:05 | XMS REPORT ---
Author Author HASEEB COOK Organization [facility] Address [address] [place] [address] Care Team Providers Care Continuing Education Dean Name Role Phone HASEEB COOK Unavailable PROBLEMS Type Condition ICD9-CM Code XRL28-YO Code Onset Dates Condition Status SNOMED Code Problem Gastroesophageal reflux disease without esophagitis K21.9 Active 740478082 Problem Chronic renal insufficiency, stage 1 N18.1 Active 033935050 Problem Cervical pain M54.2 Active 79456058 Problem Chronic fatigue R53.82 Active 82436473 Problem Psychiatric illness F99 Active 98785031 Problem Compression fracture T14.8 Active 431918829 Problem Back pain at L4-L5 level M54.5 Active 315782139 Problem 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 12159250 Problem Migraine without aura and with status migrainosus, not intractable G43.001 Active 533205283 Problem Chronic obstructive pulmonary disease (COPD) suggested by initial evaluation J44.9 Active 99630172 Problem Arthritis M19.90 Active 1152574 Problem Chronic pain syndrome G89.4 Active 259019848 Problem Infarction of distal end of right femur M87.051 Active 433417895 Problem Mixed hyperlipidemia E78.2 Active 113004563 ALLERGIES No Information ENCOUNTERS Encounter Location Date Diagnosis [facility] [id number] [address] Sep, Arthritis M19.90 [facility] [id number] [address] 8[address] Sep, [facility] [id number] [place] [address] 23878- 7054 Aug, Chronic pain syndrome G89.4 ; Chronic obstructive pulmonary disease (COPD) suggested by initial evaluation J44.9 ; Arthritis M19.90 ; Migraine without aura and with status migrainosus, not intractable G43.001 ; Gastroesophageal reflux disease without esophagitis K21.9 ; Mixed hyperlipidemia E78.2 ; Chronic renal insufficiency, stage 1 N18.1 and Chronic fatigue R53.82 [place] [id number] [place] [address] 19386- 5383 Aug, Chronic pain syndrome G89.4 [facility] [id number] [place] [address] 67789- 2381 Aug, [facility] [id number] [place] [address] 79882- 0814 Aug, Arthritis M19.90 [facility] [id number] [place] [address] 15105- 3267 Aug, [facility] [id number] [place] [address] 57445- 1323 Jul, Chronic pain syndrome G89.4 ; Chronic obstructive pulmonary disease (COPD) suggested by initial evaluation J44.9 ; Arthritis M19.90 ; Migraine without aura and with status migrainosus, not intractable G43.001 ; Gastroesophageal reflux disease without esophagitis K21.9 ; Mixed hyperlipidemia E78.2 ; Chronic renal insufficiency, stage 1 N18.1 and Closed compression fracture of L4 lumbar vertebra with delayed healing, subsequent encounter S32.040G [place] [id number] [place] [address] 98388- 1083 Jul, Chronic pain syndrome G89.4 [place] [id number] [place] [address] 96217- 3970 Jul, [place] [id number] [place] [address] 58287- 3225 Jul, [place] [id number] [place] [address] 14621- 0722 Jul, Arthritis M19.90 [place] [id number] [place] [address] 05263- 9867 Jul, Infarction of distal end of right femur M87.051 [place] [address], [place] [address] 0152 Jun, Chronic pain syndrome G89.4 ; Chronic [...] M25.571 and Pain, joint, knee, right M25.561 [place] [id number] [place] [address] 58146- 6345 Jun, Arthritis M19.90 [place] [id number] [place] [address] 52510- 7797 May, [place] [id number] [place] [address] 11616- 3008 May, Chronic pain syndrome G89.4 and Migraine without aura and with status migrainosus, not intractable G43.001 [place] [id number] [place] [address] 87109- 0578 May, Arthritis M19.90 [facility] [id number] [place] [address] 02723- 7975 May, Chronic obstructive pulmonary disease (COPD) suggested by initial evaluation J44.9 [place] [id number] [place] [address] 20678- 7227 Apr, [place] [id number] [place] [address] 92120- 3161 Apr, Arthritis M19.90 [place] [id number] [place] [address] 53622- 8148 Mar, Arthritis M19.90 [facility] [id number] [place] [address] 54429- 5818 Feb, [place] [id number] [place] [address] 98034- 5644 Feb, [facility] [id number] [place] [address] 24500- 8410 Feb, Chronic pain syndrome G89.4 [place] [id number] [place] [address] 44999- 4879 13 Feb, 2017 Migraine without aura and with status migrainosus, not intractable G43.001 ; Arthritis M19.90 ; Gastroesophageal reflux disease without esophagitis K21.9 ; Chronic pain syndrome G89.4 ; Chronic renal insufficiency, stage 1 N18.1 ; Mixed hyperlipidemia E78.2 ; Chronic obstructive pulmonary disease (COPD) suggested by initial evaluation J44.9 ; Skin infection L08.9 and Encounter for immunization Z23 [place] [id number] [place] [address] 58152- 2811 Jan, Migraine without aura and with status migrainosus, not intractable G43.001 [place] [address] 68621- 1580 Jan, Migraine without aura and with status migrainosus, not intractable G43.001 [place] [id number] [place] [address] 48610- 2626 Jan, Arthritis M19.90 [place] [id number] [place] [address] 07839- 4238 Jan, [place] [id number] [place] [address] 47934- 0472 Dec, Arthritis M19.90 [place] [id number] [place] [address] 47004- 0146 Nov, Gastroesophageal reflux disease without esophagitis K21.9 [place] [address] 11919- 1116 Nov, Arthritis M19.90 [place] [id number] [place] [address] 06709- 7306 October, Chronic pain syndrome G89.4 ; Arthritis M19.90 ; Chronic renal insufficiency, stage 1 N18.1 ; Gastroesophageal reflux disease without esophagitis K21.9 ; Cervical pain M54.2 and Chronic obstructive pulmonary disease (COPD) suggested by initial evaluation J44.9 [facility] [id number] [place] [address] 33230- 9824 October, [facility] [id number] [place] [address] 00698- 5357 October, Chronic obstructive pulmonary disease (COPD) suggested by initial evaluation J44.9 [facility] [id number] [place] [address] 43037- 9219 October, 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 [facility] [id number] [place] [address] 07565- 7476 October, Mixed hyperlipidemia E78.2 ; Migraine without aura and with status migrainosus, not intractable G43.001 and 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 [facility] [id number] [place] [address] 19802- 5833 October, [facility] [id number] [place] [address] 48992- 7831 October, [facility] [id number] [place] [address] 25750- 2730 October, [facility] [id number] [place] [address] 41502- 6751 October, [facility] [id number] [place] [address] 89968- 4576 October, [facility] [id number] [place] [address] 87557- 5520 Sep, Chronic pain syndrome G89.4 [facility] [id number] [place] [address] 74547- 1403 Sep, Chronic pain syndrome G89.4 [facility] [id number] [place] [address] 13953- 6241 Sep, [facility] [id number] [place] [address] 63269- 9193 Sep, [facility] [id number] [place] [address] 28294- 7227 Sep, Chronic pain syndrome G89.4 [facility] [id number] [place] [address] 41187- 4149 Aug, Chronic pain syndrome G89.4 [facility] [id number] [place] [address] 11403- 2293 Aug, Chronic pain syndrome G89.4 and Mixed hyperlipidemia E78.2 [facility] [id number] [place] [address] 14685- 1858 Jul, [facility] [id number] [place] [address] 66543- 1695 Jun, [facility] [id number] [place] [address] 27808- 2198 Jun, Chronic pain syndrome G89.4 [facility] [id number] [place] [address] 80592- 3943 Jun, [facility] [id number] [place] [address] 21790- 7760 May, Fever chills R50.9 ; Chronic pain syndrome G89.4 ; Chronic renal insufficiency, stage 1 N18.1 ; Influenza B J10.1 ; Upper respiratory tract infection, unspecified type J06.9 and Migraine without aura and with status migrainosus, not intractable G43.001 [facility] [id number] [place] [address] 00188- 5170 May, [facility] [id number] [place] [address] 19616- 8565 Apr, [facility] [id number] [place] [address] 89445- 2996 Apr, [facility] [id number] [place] [address] 71683- 7285 Apr, [facility] [id number] [place] [address] 37646- 6890 Mar, [facility] [id number] [place] [address] 84901- 0789 Mar, [facility] [id number] [place] [address] 25298- 1899 Mar, Left anterior shoulder pain M25.512 [facility] [id number] [place] [address] 25663- 4253 Mar, Left anterior shoulder pain M25.512 ; Chronic pain syndrome G89.4 and Chronic renal insufficiency, stage 1 N18.1 [facility] [id number] [place] [address] 46619- 6005 Mar, [facility] [id number] [place] [address] 18407- 7116 Feb, [facility] [id number] [place] [address] 59327- 2218 Feb, [facility] [id number] [place] [address] 59105- 8685 Feb, [facility] [id number] [place] [address] 01712- 0046 Feb, Encounter for immunization Z23 [facility] [id number] [place] [address] 68431- 8001 Feb, [facility] [id number] [place] [address] 48802- 1097 Feb, [facility] [id number] [place] [address] 67154- 0289 Feb, Chronic pain syndrome G89.4 ; Chronic renal insufficiency, stage 1 N18.1 ; Migraine without aura and with status migrainosus, not intractable G43.001 ; Gastroesophageal reflux disease without esophagitis K21.9 ; Mixed hyperlipidemia E78.2 and 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 [place] [address], [place] [address]- 9948 Jan, [facility] [id number] [place] [address] 09857- 4046 Nov, Chronic pain syndrome G89.4 ; Chronic renal insufficiency, stage 1 N18.1 ; Migraine without aura and with status migrainosus, not intractable G43.001 and Gastroesophageal reflux disease without esophagitis K21.9 [facility] [id number] [place] [address] 92425- 7730 October, [facility] [id number] [place] [address] 63248- 9862 October, [facility] [id number] [place] [address] 98114- 1309 Sep, [facility] [id number] [place] [address] 82833- 2745 Sep, Back pain at L4-L5 level M54.5 and Compression fracture T14.8 [facility] [id number] [place] [address] 29029- 2354 Aug, [facility] [id number] [place] [address] 02253- 2445 Aug, [facility] [id number] [place] [address] 25710- 5906 Aug, Back pain at L4-L5 level M54.5 and Compression fracture T14.8 [facility] [id number] [place] [address] 24770- 3835 Aug, Rib pain on right side R07.81 ; Right hip pain M25.551 and Lumbar pain M54.5 [facility] [id number] [place] [address] 54558- 1707 Jul, [facility] [id number] [place] [address] 84363- 7464 Jul, [facility] [id number], [place] [address]- 1791 Jul, Chronic pain syndrome G89.4 ; Chronic renal insufficiency, stage 1 N18.1 ; Mixed hyperlipidemia E78.2 and Scleritis, left H15.002 [facility] [address], [place] [address]- 4996 Jun, [facility] [id number] [place] [address] 52084- 4149 May, [facility] [id number] [place] [address] 77330- 1147 Apr, [facility] [id number] [place] [address] 53703- 3735 Apr, [facility] [id number] [place] [address] 14138- 4506 Apr, [facility] [id number] [place] [address] 79993- 2281 Mar, [facility] [id number] [place] [address] 76624- 8449 Mar, Chronic renal insufficiency, stage 1 N18.1 [facility] [id number] [place] [address] 87047- 9499 Mar, Arthritis M19.90 ; Encounter for immunization Z23 ; Chronic pain syndrome G89.4 ; Chronic renal insufficiency, stage 1 N18.1 ; Gastroesophageal reflux disease without esophagitis K21.9 and Mixed hyperlipidemia E78.2 [facility] [address], [place] [address]- 2781 Mar, [facility] [id number] [place] [address] 45400- 1108 Feb, [facility] [address] [address]- 1064 Feb, [facility] [id number] [place] [address] 34511- 2314 Dec, [facility] [address], [place] [address]- 1560 Dec, Unspecified myalgia and myositis 729.1 ; Sacroiliitis, not elsewhere classified 720.2 ; Headache 784.0 ; Renal insufficiency 593.9 ; Vitamin D deficiency 268.9 ; Fatigue 780.79 and Edema 782.3 [facility] [id number] [place] [address] 29200- 1231 Dec, [facility] [id number] [place] [address] 50394- 6520 Dec, [facility] [id number] [place] [address] 22268- 1524 Dec, [facility] [id number] [place] [address] 25570- 6511 Dec, [facility] [id number] [place] [address] 26201- 3722 Dec, [facility] [id number] [place] [address] 15352- 1311 Nov, [facility] [id number] [place] [address] 75143- 6606 Nov, [facility] [address], [place] [address]- 5349 Nov, [facility] [id number] [place] [address] 56172- 5789 Nov, Unspecified myalgia and myositis 729.1 ; Nausea alone 787.02 ; Sacroiliitis, not elsewhere classified 720.2 ; Headache 784.0 and Renal insufficiency 593.9 [facility] [id number] [place] [address] 07318- 0941 October, [facility] [address] [address]- 1003 October, [facility] [id number] [place] [address] [place] [address]- 2402 14 Sep, 2014 [facility] [place] [facility] [address] [id number] [place] [address]- 8408 13 Sep, 2014 [facility] [place] [facility] [address] [id number] [place] [address]- 1096 30 Aug, 2014 [facility] [place] [facility] [address] [id number] [place] [address]- 8756 30 Aug, 2014 [facility] [place] [facility] [address] [id number] [place] [address]- 8323 20 Aug, 2014 [facility] [place] [facility] [address] [id number] [place] [address]- 6504 20 Aug, 2014 [facility] [place] [facility] [address] [id number] [place] [address]- 2836 20 Aug, 2014 [facility] [place] [facility] [address] [id number] [place] [address]- 1655 20 Aug, 2014 [facility] [place] [facility] [address] [id number] [place] [address]- 7888 13 Aug, 2014 [facility] [place] [facility] [address] [id number] [place] [address]- 4788 13 Aug, 2014 [facility] [place] [facility] [address] [id number] [place] [address]- 6783 13 Aug, 2014 [facility] [place] [facility] [address] [id number] [place] [address]- 6245 13 Aug, 2014 [facility] [place] [facility] [address] [id number] [place] [address]- 2970 11 Aug, 2014 [facility] [place] [facility] [address] [id number] [place] [address]- 1042 11 Aug, 2014 [facility] [place] [facility] [address] [id number] [place] [address]- 7154 05 Aug, 2014 [facility] [place] [facility] [address] [id number] [place] [address]- 9817 05 Aug, 2014 [facility] [place] [facility] [address] [id number] [place] [address]- 2242 Aug, 2014 [facility] [place] [facility] [address] [id number] [place] [address]- 9918 Aug, 2014 [facility] [place] [facility] [address] [id number] [place] [address]- 8315 Jul, 2014 [facility] [place] [facility] [address] [id number] [place] [address]- 8602 Jul, 2014 [facility] [place] [facility] [address] [id number] [place] [address]- 1115 Jul, 2014 [facility] [place] [facility] [address] [id number] [place] [address]- 8125 Jul, 2014 [facility] [place] [facility] [address] [facility] [id number] [place] [address]- 1873 Jul, 2014 [facility] [place] [facility] [address] [facility] [id number] [place] [address]- 4455 Jul, 2014 [facility] [place] [facility] [address] [facility] [id number] [place] [address]- 1201 Jul, 2014 [facility] [place] [facility] [address] [facility] [id number] [place] [address]- 9999 Jul, 2014 [facility] [place] [facility] [address] [facility] [id number] [place] [address]- 0603 Jul, 2014 [facility] [place] [facility] [address] [facility] [id number] [place] [address]- 0848 Jul, 2014 [facility] [place] [facility] [address] [facility] [id number] [place] [address]- 1969 Jul, 2014 [facility] [place] [facility] [address] [id number] [place] [address]- 4506 Jul, 2014 [facility] [place] [facility] [address] [facility] [id number] [place] [address]- 5463 Jul, 2014 [facility] [place] [facility] [address] [facility] [id number] [place] [address]- 7491 Jul, [facility] [address] [id number] [place] [address]- 8429 Jul, [facility] [place] [facility] [address] [id number] [place] [address]- 7276 Jul, [facility] [place] [facility] [address] [id number] [place] [address]- 5271 Jun, [facility] [place] [facility] [address] [id number] [place] [address]- 8780 Jun, [facility] [place] [facility] [address] [id number] [place] [address]- 6812 Jun, [facility] [place] [facility] [address] [id number] [place] [address]- 2005 Jun, [facility] [place] [facility] [address] [id number] [place] [address]- 9753 Jun, [facility] [place] [facility] [address] [id number] [place] [address]- 4969 Jun, [facility] [place] [facility] [address] [id number] [place] [address]- 9869 Jun, [facility] [place] [facility] [address] [id number] [place] [address]- 4081 Jun, [facility] [place] [facility] [address] [id number] [place] [address]- 3711 Jun, [facility] [place] [facility] [address] [id number] [place] [address]- 1796 Jun, [facility] [place] [facility] [address] [id number] [place] [address]- 0003 Jun, [facility] [place] [facility] [address] [id number] [place] [address]- 6646 Jun, [facility] [place] [facility] [address] [id number] [place] [address]- 4530 May, [facility] [place] [facility] [address] [id number] [place] [address]- 5581 29 May, 2014 [facility] [place] [facility] [address] [id number] [place] [address]- 8556 May, [facility] [place] [facility] [address] [id number] [place] [address] May, [facility] [place] [facility] [address] [id number] [place] [address] 18 May, 2014 [facility] [place] [facility] [address] [id number] [place] [address] 16 May, 2014 [facility] [place] [facility] [address] [id number] [place] [address] 15 May, 2014 [facility] [place] [facility] [address] [id number] [place] [address] 12 May, 2014 [facility] [place] [facility] [address] [id number] [place] [address] May, [facility] [place] [facility] [address] [id number] [place] [address] May, [facility] [place] [facility] [address] [id number] [place] [address] May, [facility] [place] [facility] [address] [id number] [place] [address] May, [facility] [place] [facility] [address] [id number] [place] [address] May, [facility] [place] [facility] [address] [id number] [place] [address] May, [facility] [place] [facility] [address] [id number] [place] [address] May, [facility] [place] [facility] [address] [id number] [place] [address] May, [facility] [place] [facility] [address] [id number] [place] [address] May, [facility] [place] [facility] [address] [id number] [place] [address] May, [facility] [place] [facility] [address] [id number] [place] [address] Apr, [facility] [place] [facility] [address] [id number] [place] [address] Apr, [facility] [place] [facility] [address] [id number] [place] [address] Apr, [facility] [place] [facility] [address] [id number] [place] [address] Apr, [facility] [place] [facility] [address] [id number] [place] [address] Apr, [facility] [place] [facility] [address] [id number] [place] [address] Apr, [facility] [place] [facility] [address] [id number] [place] [address] Apr, [facility] [place] [facility] [address] [id number] [place] [address] Apr, [facility] [place] [facility] [address] [id number] [place] [address] Mar, [facility] [place] [facility] [address] [id number] [place] [address] Mar, [facility] [place] [facility] [address] [id number], [place] [address] 14 Mar, 2014 [facility] [place] [facility] [address] [id number] [place] [address] 30 Feb, 2014 [facility] [place] [facility] [address] [id number] [place] [address] 30 Feb, 2014 [facility] [place] [facility] [address] [id number] [place] [address] 26 Feb, 2014 [facility] [place] [facility] [address] [id number] [place] [address] 26 Feb, 2014 [facility] [place] [facility] [address] [id number] [facility] [place] [address] Feb, [facility] [place] [facility] [address] [id number] [place] [address] Feb, [facility] [place] [facility] [address] [id number] [place] [address] Feb, [facility] [place] [facility] [address] [id number] [place] [address] 8642 Feb, [facility] [place] [facility] [address] [id number] [place] [address] 9939 Jan, [facility] [place] [facility] [address] [id number] [place] [address] 2878 Jan, [facility] [place] [facility] [address] [id number] [place] [address] 0946 Jan, [facility] [place] [facility] [address] [id number] [place] [address] 7312 Jan, [facility] [place] [facility] [address] [id number] [place] [address] 9757 Jan, [facility] [place] [facility] [address] [id number] [place] [address] 6969 Jan, [facility] [place] [facility] [address] [id number] [place] [address] 8714 Dec, [facility] [place] [facility] [address] [id number] [place] [address] 7921 Dec, [facility] [place] [facility] [address] [id number] [place] [address] Dec, [facility] [place] [facility] [address] [id number] [place] [address] 6569 Dec, [facility] [place] [facility] [address] [id number] [place] [address] 1914 Nov, [facility] [place] [facility] [address] [id number] [place] [address] 4059 Nov, [facility] [place] [facility] [address] [id number] [place] [address] 2411 Nov, [facility] [place] [facility] [address] [id number] [place] [address]- 7985 Nov, [facility] [place] [facility] [address] [id number] [place] [address] 2980 Nov, [facility] [place] [facility] [address] [id number] [place] [address]- 5444 Nov, [facility] [place] [facility] [address] [id number] [place] [address] 7966 Nov, [facility] [place] [facility] [address] [id number] [place] [address] 6710 Nov, [facility] [place] [facility] [address] [id number], [place] [address] Nov, [facility] [place] [facility] [address] [id number], [place] [address]- 7792 Nov, [facility] [place] [facility] [address] [id number] [place] [address] 1923 Nov, [facility] [place] [facility] [address] [id number], [place] [address] 7372 Nov, [facility] [place] [facility] [address] [id number], [place] [address] 4197 Nov, [facility] [place] [facility] [address] [id number], [place] [address]- 6113 Nov, [facility] [place] [facility] [address] [id number], [place] [address]- 7451 Nov, [facility] [place] [facility] [address] [id number], [place] [address] 7593 Nov, [facility] [place] [facility] [address] [id number] [place] [address] 6016 Nov, [facility] [place] [facility] [address] [id number] [place] [address]- 7393 Nov, [facility] [place] [facility] [address] [id number] [place] [address]- 3126 Nov, [facility] [place] [facility] [address] [id number] [place] [address] 1805 Nov, [facility] [place] [facility] [address] [id number] [place] [address]- 2556 Nov, [facility] [place] [facility] [address] [id number] [place] [address]- 7767 Nov, [facility] [place] [facility] [address] [id number] [place] [address]- 4896 Nov, [facility] [place] [facility] [address] [id number] [place] [address]- 2676 Nov, [facility] [place] [facility] [address] [id number] [place] [address] 6206 Nov, [facility] [place] [facility] [address] [id number] [place] [address] 8640 Nov, [facility] [place] [facility] [address] [id number] [place] [address]- 9568 October, [facility] [place] [facility] [address] [id number] [place] [address]- 7575 October, [facility] [place] [facility] [address] [id number] [place] [address] 5359 October, [facility] [place] [facility] [address] [id number] [place] [address] 2988 October, [facility] [place] [facility] [address] [id number] [place] [address] 2843 October, [facility] [place] [facility] [address] [id number] [place] [address]- 1873 October, [facility] [place] [facility] [address] [id number] [place] [address] 3311 October, [facility] [address] [id number] [place] [address] 4885 October, [facility] [address] [id number] [place] [address] 2098 October, [facility] [place] [facility] [address] [id number] [place] [address] 7442 October, [facility] [address] [id number] [place] [address] 7947 October, [facility] [place] [facility] [address] [id number] [place] [address]- 8898 October, [facility] [address] [id number] [place] [address]- 6086 October, [facility] [address] [id number] [place] [address]- 2199 October, [facility] [address] [id number] [place] [address]- 1502 October, [facility] [place] [facility] [address] [id number] [place] [address] 2259 October, [facility] [place] [facility] [address] [id number] [place] [address] 0104 October, [facility] [place] [facility] [address] [id number] [place] [address] 4701 Sep, [facility] [place] [facility] [address] [id number] [place] [address]- 1152 Sep, [facility] [place] [facility] [address] [id number] [place] [address] 8015 Sep, [facility] [place] [facility] [address] [id number] [place] [address] 1153 Sep, [facility] [place] [facility] [address] [id number], [place] [address]- 6041 Sep, [facility] [place] [facility] [address] [id number] [place] [address] 0513 Sep, [facility] [place] [facility] [address] [id number] [place] [address] Sep, [facility] [place] [facility] [address] [id number] [place] [address]- 9034 Aug, [facility] [place] [facility] [address] [id number] [place] [address]- 2888 Aug, [facility] [place] [facility] [address] [id number] [place] [address]- 8485 Aug, [facility] [place] [facility] [address] [facility] [id number] [place] [address]- 2526 Aug, [facility] [place] [facility] [address] [facility] [id number] [place] [address]- 8123 Aug, [facility] [place] [facility] [address] [facility] [id number] [place] [address]- 1102 Aug, [facility] [place] [facility] [address] [id number] [place] [address]- 9568 Jul, [facility] [place] [facility] [address] [facility] [id number] [place] [address]- 6837 Jul, [facility] [place] [facility] [address] [id number] [place] [address]- 0826 Jul, [facility] [place] [facility] [address] [facility] [id number], [place] [address]- 5197 Jul, [facility] [place] [facility] [address] [id number] [place] [address]- 8186 Jul, [facility] [place] [facility] [address] [id number] [place] [address]- 0832 Jul, [facility] [place] [facility] [address] [facility] [id number], [place] [address]- 2764 Jul, [facility] [place] [facility] [address] [id number] [place] [address]- 3720 17 Jul, 2013 [facility] [place] [facility] [address] [id number] [place] [address]- 8056 Jul, [facility] [place] [facility] [address] [id number] [place] [address]- 6558 Jul, [facility] [place] [facility] [address] [id number] [place] [address]- 4668 Jun, [facility] [place] [facility] [address] [id number] [place] [address]- 3713 Jun, [facility] [place] [facility] [address] [id number] [place] [address]- 7145 Jun, [facility] [place] [facility] [address] [id number] [place] [address]- 3333 Jun, [facility] [place] [facility] [address] [id number] [place] [address]- 2742 Jun, [facility] [place] [facility] [address] [id number] [place] [address]- 9008 Jun, [facility] [place] [facility] [address] [id number], [place] [address]- 4736 Jun, [facility] [place] [facility] [address] [facility] [id number], [place] [address]- 4630 May, [facility] [place] [facility] [address] [id number], [place] [address]- 8951 May, [facility] [place] [facility] [address] [id number] [place] [address]- 5875 May, [facility] [place] [facility] [address] [id number] [place] [address]- 9194 May, [facility] [place] [facility] [address] [id number] 9685 May, [facility] [place] [facility] [address] [id number], [place] [address]- 3335 May, [facility] [place] [facility] [address] [id number] [place] [address]- 6264 Apr, [facility] [place] [facility] [address] [id number], [place] [address]- 6473 Apr, [facility] [place] [facility] [address] [facility] [id number] [place] [address]- 9161 Apr, [facility] [place] [facility] [address] [id number] [place] [address]- 9974 Apr, [facility] [place] [facility] [address] [id number] [place] [address]- 1272 15 Apr, 2013 [facility] [place] [facility] [address] [facility] [id number] [place] [address]- 4656 14 Apr, 2013 [facility] [place] [facility] [address] [facility] [id number], [place] [address]- 7321 Apr, [facility] [place] [facility] [address] [facility] [id number] [place] [address]- 4873 Apr, [facility] [place] [facility] [address] [facility] [id number], [place] [address]- 1961 Apr, [facility] [place] [facility] [address] [facility] [id number], [place] [address]- 2024 Apr, [facility] [place] [facility] [address] [facility] [id number], [place] [address]- 2017 Apr, [facility] [place] [facility] [address] [facility] [id number], [place] [address]- 5510 Apr, [facility] [place] [facility] [address] [id number], [place] [address]- 1884 Apr, [facility] [place] [facility] [address] [facility] [id number], [place] [address]- 1253 Mar, [facility] [place] [facility] [address] [facility] [id number], [place] [address]- 8620 Mar, [facility] [place] [facility] [address] [id number] [place] [address]- 4714 29 Mar, 2012 [facility] [place] [facility] [address] [id number] [place] [address]- 7475 28 Mar, 2012 [facility] [place] [facility] [address] [id number] [place] [address]- 1318 28 Mar, 2012 [facility] [place] [facility] [address] [id number] [place] [address]- 0352 16 Mar, 2012 [facility] [place] [facility] [address] [id number] [place] [address]- 5702 16 Mar, 2012 [facility] [place] [facility] [address] [id number] [place] [address]- 2517 15 Mar, 2012 [facility] [place] [facility] [address] [id number] [place] [address]- 5797 15 Mar, 2012 [facility] [place] [facility] [address] [id number] [place] [address]- 7584 15 Mar, 2012 [facility] [place] [facility] [address] [id number] [place] [address]- 8438 15 Mar, 2012 [facility] [place] [facility] [address] [id number] [place] [address]- 3502 13 Mar, 2012 [facility] [place] [facility] [address] [id number] [place] [address]- 5431 10 Mar, 2012 [facility] [place] [facility] [address] [id number] [place] [address]- 6242 10 Mar, 2012 [facility] [place] [facility] [address] [id number] [place] [address]- 2625 2012 [facility] [place] [facility] [address] [id number] [place] [address]- 9682 03 Mar, 2012 [facility] [place] [facility] [address] [id number] [place] [address]- 1653 27 Feb, 2012 [facility] [place] [facility] [address] [id number] [place] [address]- 6389 26 Sep, 2012 [facility] [place] [facility] [address] [id number] [place] [address] 2548 25 Sep, 2012 [facility] [place] [facility] [address] [id number] [place] [address] 2548 24 Sep, 2012 [facility] [place] [facility] [address] [id number] [place] [address]- 0315 23 Sep, 2012 [facility] [place] [facility] [address] [id number] [place] [address]- 2132 20 Sep, 2012 [facility] [place] [facility] [address] [id number] [place] [address]- 9512 18 Sep, 2012 [facility] [place] [facility] [address] [id number] [place] [address]- 8219 17 Feb, 2012 [facility] [place] [facility] [address] [id number] [place] [address]- 0813 11 Feb, 2012 [facility] [place] [facility] [address] [id number] [place] [address]- 1992 09 Sep, 2012 [facility] [place] [facility] [address] [id number] [place] [address]- 7305 09 Sep, 2012 [facility] [place] [facility] [address] [id number] [place] [address]- 8255 08 Sep, 2012 [facility] [place] [facility] [address] [id number], [place] [address]- 6832 06 Sep, 2012 [facility] [place] [facility] [address] [id number], [place] [address]- 9559 06 Sep, 2012 [facility] [place] [facility] [address] [id number] [place] [address]- 1863 04 Feb, 2012 [facility] [place] [facility] [address] [id number] [place] [address]- 1773 26 Jan, 2012 [facility] [place] [facility] [address] [id number] [place] [address]- 8447 23 Jan, 2013 [facility] [place] [facility] [address] [id number] [place] [address]- 9373 Jan, [facility] [address] [id number] [place] [address]- 9286 Jan, [facility] [place] [facility] [address] [id number] [place] [address]- 3691 Jan, [facility] [place] [facility] [address] [id number] [place] [address]- 8822 Jan, [facility] [place] [facility] [address] [id number] [place] [address]- 1226 Jan, [facility] [place] [facility] [address] [id number] [place] [address]- 1151 Jan, [facility] [place] [facility] [address] [id number] [place] [address]- 7958 Jan, [facility] [place] [facility] [address] [id number] [place] [address]- 1699 Dec, [facility] [place] [facility] [address] [id number] [place] [address]- 8098 Dec, [facility] [place] [facility] [address] [id number] [place] [address]- 5252 Dec, [facility] [place] [facility] [address] [id number] [place] [address]- 4421 Dec, [facility] [place] [facility] [address] [id number] [place] [address]- 2448 Dec, [facility] [place] [facility] [address] [id number] [place] [address]- 3577 Dec, [facility] [place] [facility] [address] [id number] [place] [address]- 2937 Dec, [facility] [place] [facility] [address] [id number] [place] [address]- 6899 Dec, [facility] [place] [facility] [address] [id number] [place] [address]- 0089 Nov, [facility] [place] [facility] [address] [id number] [place] [address]- 7511 28 Nov, 2012 [facility] [place] [facility] [address] [id number] [place] [address]- 6442 25 Nov, 2012 [facility] [place] [facility] [address] [id number] [place] [address]- 6158 24 Nov, 2012 [facility] [place] [facility] [address] [id number] [place] [address]- 0665 Nov, [facility] [place] [facility] [address] [id number] [place] [address]- 6021 18 Nov, 2012 [facility] [place] [facility] [address] [id number] [place] [address]- 0575 18 Nov, 2012 [facility] [place] [facility] [address] [id number] [place] [address]- 8606 17 Nov, 2012 [facility] [place] [facility] [address] [id number] [place] [address]- 0911 14 Nov, 2012 [facility] [place] [facility] [address] [id number] [place] [address]- 0455 Nov, [facility] [place] [facility] [address] [id number] [place] [address]- 9627 12 Nov, 2012 [facility] [place] [facility] [address] [id number] [place] [address]- 0556 08 Nov, 2012 [facility] [place] [facility] [address] [id number] [place] [address]- 5739 05 Nov, 2012 [facility] [place] [facility] [address] [id number] [place] [address]- 7493 04 Nov, 2012 [facility] [place] [facility] [address] [id number] [place] [address]- 4475 04 Nov, 2012 [facility] [place] [facility] [address] [id number] [place] [address]- 6393 03 Nov, 2012 [facility] [place] [facility] [address] [id number] [place] [address]- 4666 Nov, [facility] [address] [id number] [place] [address]- 3798 Nov, [facility] [address] [id number] [place] [address]- 9446 October, [facility] [address] [id number] [place] [address]- 8776 October, [facility] [address] [id number] [place] [address]- 2221 October, [facility] [address] [id number] [place] [address]- 5314 October, [facility] [address] [id number] [place] [address]- 2501 October, [facility] [address] [id number] [place] [address]- 7675 October, [facility] [address] [id number] [place] [address]- 7993 October, [facility] [address] [id number] [place] [address]- 4467 October, [facility] [address] [id number] [place] [address]- 1843 Sep, [facility] [address] [id number] [place] [address]- 6776 Sep, [facility] [place] [facility] [address] [id number] [place] [address]- 2957 Sep, [facility] [place] [facility] [address] [id number] [place] [address]- 5472 Sep, [facility] [place] [facility] [address] [id number] [place] [address]- 3335 Sep, [facility] [place] [facility] [address] [id number] [place] 4450 Sep, [facility] [place] [facility] [address] [id number] [place] [address]- 3385 05 Sep, 2012 [facility] [address] [id number] [place] [address]- 0813 29 Aug, 2012 [facility] [address] [id number] [place] [address]- 4306 Aug, [facility] [address] [id number] [place] [address] Aug, [facility] [address] [id number] [place] [address] Aug, [facility] [address] [id number] [place] [address] Aug, [facility] [address] [id number] [place] [address] Aug, [facility] [address] [id number] [place] [address] Aug, [facility] [address] [id number] [place] [address] Aug, [facility] [address] [id number] [place] [address] Jul, [facility] [address] [id number] [place] [address] Jul, [facility] [address] [id number] [place] [address] Jun, [facility] [address] [id number] [place] [address] Jun, [facility] [address] [id number] [place] [address] Jun, [facility] [address] [id number] [place] [address]46 Jun, [facility] [address] [id number] [place] [address] Jun, [facility] [place] [facility] [address] [id number] [place] [address] May, [facility] [place] [facility] [address] [id number] [place] [address] May, [facility] [place] [facility] [address] [id number] [place] [address] May, [facility] [place] [facility] [address] [id number] [place] [address] May, [facility] [place] [facility] [address] [id number] [place] [address] May, [facility] [place] [facility] [address] [id number] [place] [address]- [address] May, [facility] [place] [facility] [address] [id number] [place] [address] May, [facility] [place] [facility] [address] [id number] [place] [address] 40[address] May, [facility] [place] [facility] [address] [id number] [place] [address] Apr, [facility] [place] [facility] [address] [id number] [place] [address] Apr, [facility] [place] [facility] [address] [id number] [place] [address] Apr, [facility] [place] [facility] [address] [id number] [place] [address]- 6289 Apr, [facility] [place] [facility] [address] [id number] [place] [address] Apr, [facility] [place] [facility] [address] [id number] [place] [address] 7769 Apr, [facility] [place] [facility] [address] [id number] [place] [address] 16 Apr, 2012 [facility] [place] [facility] [address] [id number], [place] [address] 16 Apr, 2012 [facility] [place] [facility] [address] [id number] [place] [address] 15 Apr, 2012 [facility] [place] [facility] [address] [id number], [place] [address] 15 Apr, 2012 [facility] [place] [facility] [address] [id number] [place] [address] Apr, [facility] [place] [facility] [address] [id number] [place] [address] Apr, [facility] [place] [facility] [address] [id number] [place] [address], [place] [address]- [address] Apr, [facility] [place] [facility] [address] [id number], [place] [address] Apr, [facility] [place] [facility] [address] [id number], [place] [address] Apr, [facility] [place] [facility] [address] [id number], [place] [address] Apr, [facility] [place] [facility] [address] [facility] [id number] [place] [address]- [address] Apr, [facility] [place] [facility] [address] [facility] [id number], [place] [address] Apr, [facility] [place] [facility] [address] [facility] [id number], [place] [address] Mar, [facility] [place] [facility] [address] [id number], [place] [address] Mar, [facility] [place] [facility] [address] [id number], [place] [address] Mar, [facility] [place] [facility] [address] [facility] [id number], [place] [address]- [address] Mar, [facility] [place] [facility] [address] [facility] [id number], [place] [address] 17 Mar, 2012 [facility] [place] [facility] [address] [id number] [place] [address] 15 Mar, 2012 [facility] [place] [facility] [address] [id number] [place] [address]- 9426 15 Mar, 2012 [facility] [place] [facility] [address] [id number] [place] [address] 2546 Mar, [facility] [place] [facility] [address] [id number] [place] [address] Mar, [facility] [place] [facility] [address] [id number] [place] [address] 486[address] Mar, [facility] [place] [facility] [address] [id number] [place] [address] 59[address] Mar, [facility] [place] [facility] [address] [id number] [place] [address] 4066 27 Feb, 2012 [facility] [place] [facility] [address] [id number] [place] [address]- 6282 26 Feb, 2012 [facility] [place] [facility] [address] [id number] [place] [address]- 7985 12 Feb, 2012 [facility] [place] [facility] [address] [id number] [place] [address]- 2847 30 Jan, 2012 [facility] [place] [facility] [address] [id number] [place] [address] 254 29 Jan, 2012 [facility] [place] [facility] [address] [id number] [place] [address]- 2546 Jan, [facility] [place] [facility] [address] [id number] [place] [address] 2547 Jan, [facility] [place] [facility] [address] [id number] [place] [address] 2546 Jan, [facility] [place] [facility] [address] [id number] [place] [address] 2546 16 Jan, 2012 [facility] [place] [facility] [address] [id number] [place] [address]- [address]807 16 Jan, 2012 [facility] [place] [facility] [address] [id number] [place] [address]- 5255 Jan, [facility] [place] [facility] [address] [id number] [place] [address]- 1046 15 Jan, 2012 [facility] [place] [facility] [address] [id number] [place] [address]- 37[address] Jan, [facility] [place] [facility] [address] [id number] [place] [address]- 9355 Dec, [facility] [place] [facility] [address] [id number] [place] [address]- 7338 Dec, [facility] [place] [facility] [address] [id number] [place] [address]- 2364 Dec, [facility] [place] [facility] [address] [id number] [place] [address]- 7328 Dec, [facility] [place] [facility] [address] [id number] [place] [address]- 5453 24 Dec, 2011 [facility] [place] [facility] [address] [id number] [place] [address]- 9264 Dec, [facility] [place] [facility] [address] [id number] [place] [address] 18 Dec, 2011 [facility] [place] [facility] [address] [id number] [place] [address] 17 Dec, 2011 [facility] [place] [facility] [address] [id number] [place] [address] 14 Dec, 2011 [facility] [place] [facility] [address] [id number] [place] [address] 12 Dec, 2011 [facility] [place] [facility] [address] [id number] [place] [address] Dec, [facility] [place] [facility] [address] [id number] [place] [address] Dec, [facility] [place] [facility] [address] [id number] [place] [address] 89[address] Dec, [facility] [place] [facility] [address] [id number] [place] [address] Nov, [facility] [place] [facility] [address] [id number] [place] [address] Nov, [facility] [place] [facility] [address] [id number] [place] [address]078 Nov, [facility] [place] [facility] [address] [id number] [place] [address] 8468 Nov, [facility] [place] [facility] [address] [id number] [place] [address] Nov, [facility] [place] [facility] [address] [id number] [place] [address] 44[address] Nov, [facility] [address] [id number] [place] [address] October, [facility] [address] [id number] [place] [address] October, [facility] [place] [facility] [address] [id number] [place] [address] October, [facility] [address] [id number] [place] [address] 44[address] October, [facility] [place] [facility] [address] [id number] [place] [address] 28[address] October, [facility] [place] [facility] [address] [id number] [place] [address]107 October, [facility] [place] [facility] [address] [id number] [place] [address] October, [facility] [place] [facility] [address] [id number] [place] [address] 6496 Sep, [facility] [place] [facility] [address] [id number] [place] [address] 0795 Sep, [facility] [place] [facility] [address] [id number] [place] [address] 3111 Sep, [facility] [address] [id number] [place] [address] 8758 Sep, [facility] [address] [id number] [place] [address]26 Sep, [facility] [address] [id number] [place] [address] 2574 20 Sep, 2011 [facility] [address] [id number] [place] [address] 8207 16 Sep, 2011 [facility] [address] [id number] [place] [address] 378[address] Sep, [facility] [address] [id number] [place] [address] 4[address] Sep, [facility] [address] [id number] [place] [address] 3714 Sep, [facility] [address] [id number] [place] [address] 6037 Sep, [facility] [address] [id number] [place] [address] 277[address] Sep, [facility] [address] [id number] [place] [address] 4410 15 Aug, 2011 [facility] [place] [facility] [address] [id number] [place] [address] 6486 Aug, [facility] [place] [facility] [address] [id number] [place] [address] 8209 Aug, [facility] [place] [facility] [address] [id number] [place] [address] Aug, [facility] [place] [facility] [address] [id number] [place] [address] Jul, [facility] [place] [facility] [address] [id number] [place] [address] 2546 Jul, [facility] [address] [id number] [place] [address] 2546 Jul, [facility] [place] [facility] [address] [id number] [place] [address] 2546 Jul, [facility] [place] [facility] [address] [id number] [place] [address] 4[address] Jul, [facility] [place] [facility] [address] [id number] [place] [address] 2546 Jul, [facility] [address] [id number] [place] [address] 7876 Jul, [facility] [place] [facility] [address] [id number] [place] [address] 2546 Jul, [facility] [address] [id number] [place] [address] 5236 Jul, [facility] [address] [id number] [place] [address] 6544 Jul, [facility] [place] [facility] [address] [id number] [place] [address] 4016 Jul, [facility] [address] [id number] [place] [address] 6342 Jul, [facility] [place] [facility] [address] [id number] [place] [address] 2546 Jul, [facility] [place] [facility] [address] [id number] [place] [address] 2546 Jun, [facility] [place] [facility] [address] [id number] [place] [address] 2546 Jun, [facility] [place] [facility] [address] [id number] [place] [address] 2546 Jun, [facility] [place] [facility] [address] [id number] [place] [address] 6117 Jun, [facility] [address] [id number] [place] [address] 8462 Jun, [facility] [place] [facility] [address] [id number] [place] [address] 6949 Jun, [facility] [place] [facility] [address] [id number] [place] [address] 5607 Jun, [facility] [place] [facility] [address] [id number] [place] [address] 5314 Jun, [facility] [place] [facility] [address] [id number] [place] [address] 2660 Jun, [facility] [place] [facility] [address] [id number] [place] [address] 5541 Jun, [facility] [place] [facility] [address] [id number] [place] [address] 5232 May, [facility] [place] [facility] [address] [id number] [place] [address] 0791 May, [facility] [place] [facility] [address] [id number] [place] [address] 4880 May, [facility] [place] [facility] [address] [id number] [place] [address] 4063 May, [facility] [place] [facility] [address] [id number] [place] [address]- 8758 Apr, [facility] [place] [facility] [address] [id number], [place] [address] 27[address] Apr, [facility] [place] [facility] [address] [id number] [place] [address]- 0554 Apr, [facility] [place] [facility] [address] [id number] [place] [address]- 3543 Apr, [facility] [place] [facility] [address] [id number] [place] [address]- 9617 Apr, [facility] [place] [facility] [address] [id number] [place] [address]- 5822 31 Mar, 2011 [facility] [address] [id number] [place] [address]- 9046 24 Mar, 2011 [facility] [place] [facility] [address] [id number] [place] [address]- 3926 18 Mar, 2011 [facility] [place] [facility] [address] [id number] [place] [address]- 9956 18 Mar, 2011 [facility] [place] [facility] [address] [id number] [place] [address]- 0590 28 May, 2010 [facility] [place] [facility] [address] [id number] [place] [address]- 1701 22 May, 2010 [facility] [place] [facility] [address] [id number] [place] [address]- 8393 17 May, 2010 [facility] [place] [facility] [address] [id number] [place] [address]- 7045 17 May, 2010 [facility] [place] [facility] [address] [id number] [place] [address]- 4311 15 May, 2010 [facility] [place] [facility] [address] [id number] [place] [address]- 2831 09 May, 2010 [facility] [place] [facility] [address] [facility] [id number] [place] [address]- 0073 08 May, 2010 [facility] [place] [facility] [address] [id number] [place] [address]- 2089 May, [facility] [place] [facility] [address] [id number] [place] [address]- 2541 29 Apr, 2010 [facility] [place] [facility] [address] [id number] [place] [address]- 0816 16 Apr, 2010 [facility] [place] [facility] [address] [facility] [id number] [place] [address] 16 Apr, 2010 [facility] [place] [facility] [address] [facility] [id number] [place] [address] 15 Apr, 2010 [facility] [place] [facility] [address] [address] 08 Apr, 2010 [facility] [address], [place] [address] Apr, [facility] [address], [place] [address] 6066 Apr, [facility] [id number] [place] [address]- 3543 Apr, [facility] [id number], [place] [address] 8395 Mar, [facility] [id number] [place] [address]- 7689 Jan, [facility] [id number] [place] [address]- 7428 Nov, [facility] [id number] [place] [address]- 1930 October, [facility] [id number] [place] [address]- 5822 Sep, [facility] [address], [place] [address]- [address] Aug, [facility] [address], [place] [address] 0756 Jul, [facility] [address], [place] [address]150 Jun, IMMUNIZATIONS No Known Immunizations SOCIAL HISTORY Never Assessed REASON FOR VISIT Requests return call PLAN OF CARE VITAL SIGNS MEDICATIONS Unknown [...] disorder, dependent personality disorder. Being seen by [facility] Medical History chonic pain since 1994 when [...]
--- OUTSIDE RECORDS SUMMARY | 2017-10-22 18:05 | XMS REPORT ---
Author Author HASEEB COOK Organization [facility] Address [address] [place] [address] Care Team Providers Care Computational Chemist Name Role Phone HASEEB COOK Unavailable PROBLEMS Type Condition ICD9-CM Code [id number] Code Onset Dates Condition Status SNOMED Code Problem Arthritis M19.90 Active 7226660 Problem Mixed hyperlipidemia E78.2 Active 383343273 Problem Chronic pain syndrome G89.4 Active 788720528 Problem Chronic obstructive pulmonary disease (COPD) suggested by initial evaluation J44.9 Active 99907297 Problem Gastroesophageal reflux disease without esophagitis K21.9 Active 707239871 Problem 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 54792552 Problem Migraine without aura and with status migrainosus, not intractable G43.001 Active 147965738 Problem Chronic renal insufficiency, stage 1 N18.1 Active 878941358 Problem Cervical pain M54.2 Active 53148210 Problem Compression fracture T14.8 Active 661035785 Problem Back pain at L4-L5 level M54.5 Active 467247693 ALLERGIES No Information SOCIAL HISTORY Never Assessed PLAN OF CARE VITAL SIGNS MEDICATIONS Medication Instructions Dosage Frequency Start Date End Date Duration Status Topamax 100 mg 1 tablet 12h October, 30 days Active RESULTS No Results PROCEDURES No [...] disorder, dependent personality disorder. Being seen by [facility] Medical History chonic pain since [...]
--- OUTSIDE RECORDS SUMMARY | 2017-10-22 18:05 | XMS REPORT ---
Author Author HASEEB COOK Organization [facility] Address [address] [place] [address] Care Team Providers Care Reel Cutter Name Role Phone HASEEB COOK Unavailable PROBLEMS Type Condition ICD9-CM Code GDZ19-DQ Code Onset Dates Condition Status SNOMED Code Problem Arthritis M19.90 Active 2635582 Problem Mixed hyperlipidemia E78.2 Active 255418745 Problem Chronic pain syndrome G89.4 Active 130421242 Problem Chronic obstructive pulmonary disease (COPD) suggested by initial evaluation J44.9 Active 27887002 Problem Gastroesophageal reflux disease without esophagitis K21.9 Active 105292382 Problem 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 60427632 Problem Migraine without aura and with status migrainosus, not intractable G43.001 Active 848433478 Problem Chronic renal insufficiency, stage 1 N18.1 Active 422166874 Problem Cervical pain M54.2 Active 90425677 Problem Compression fracture T14.8 Active 048347199 Problem Back pain at L4-L5 level M54.5 Active 143226858 ALLERGIES No Information SOCIAL HISTORY Never Assessed PLAN OF CARE VITAL SIGNS MEDICATIONS Medication Instructions Dosage Frequency Start Date End Date Duration Status Lipitor 20 mg Orally Once a day-must have appt for further refills 1 tablet by Oral route 1 time per day Jan, Active Lyrica 100 mg Orally 2 times [...] disorder, dependent personality disorder. Being seen by [facility] Medical History chonic [...]
--- OUTSIDE RECORDS SUMMARY | 2017-10-22 18:14 | XMS REPORT | Continuity of Care Document ---
Author Author [facility] Address Unknown Phone Unavailable Allergies Active Description Code Type Severity Reaction Onset Reported/Identified Relationship to Patient Clinical Status Yes No Known Drug Allergies [id number] Drug Allergy Unknown N/A 10/12/2009 Medications There is no data. Problems Date Dx Coded Attending Type Code Diagnosis Diagnosed By 06/15/2009 KIERAN JAMESON DO 845.00 Sprain/strain Ankle 06/15/2009 845.00 Sprain/ strain Ankle 06/15/2009 KIERAN JAMESON DO 845.00 Sprain/strain Ankle 06/15/2009 KIERAN JAMESON DO 845.00 Sprain/strain Ankle 06/15/2009 KIERAN JAMESON DO 845.00 Sprain/strain Ankle 06/15/2009 KIERAN JAMESON DO 845.00 Sprain/strain Ankle 06/15/2009 KIERAN JAMESON DO 845.00 Sprain/strain Ankle 06/15/2009 845.00 Sprain/ strain Ankle 06/15/2009 845.00 Sprain/ strain Ankle 06/15/2009 KIERAN JAMESON DO 845.00 Sprain/strain Ankle 06/15/2009 845.00 Sprain/ strain Ankle 06/15/2009 845.00 Sprain/ strain Ankle 06/15/2009 845.00 Sprain/ strain Ankle 06/15/2009 845.00 Sprain/ strain Ankle 06/15/2009 845.00 Sprain/ strain Ankle 06/15/2009 845.00 Sprain/ strain Ankle 06/15/2009 845.00 Sprain/ strain Ankle 06/15/2009 845.00 Sprain/ strain Ankle 06/15/2009 845.00 Sprain/ strain Ankle 06/15/2009 845.00 Sprain/ strain Ankle 06/15/2009 WADE CARVER MD 845.00 Sprain/strain Ankle 06/15/2009 WEN MD, WADE M 845.00 Sprain/strain Ankle 06/15/2009 WEN VEGA, WADE Ramírez 845.00 Sprain/strain Ankle 06/15/2009 NAA VEGA, AZALEA 845.00 Sprain/strain Ankle 06/15/2009 NAA VEGA, AZALEA 845.00 Sprain/strain Ankle 06/15/2009 NAA VEGA, AZALEA 845.00 Sprain/strain Ankle 06/15/2009 WEN VEGA, WADE Ramírez 845.00 Sprain/strain Ankle 06/15/2009 WEN VEGA, WADE M 845.00 Sprain/strain Ankle 06/15/2009 JAMESON DO, KIERAN K 845.00 Sprain/strain Ankle 06/15/2009 JAMESON DO, KIERAN K 845.00 Sprain/strain Ankle 06/15/2009 JAMESON DO, KIERAN K 845.00 Sprain/strain Ankle 06/15/2009 JAMESON DO, KIERAN K 845.00 Sprain/strain Ankle 06/15/2009 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, HASEEB L 845.00 Sprain/strain Ankle 06/15/2009 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, HASEEB L 845.00 Sprain/strain Ankle 06/15/2009 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, HASEEB L 845.00 Sprain/strain Ankle 06/15/2009 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, HASEEB L 845.00 Sprain/strain Ankle 06/15/2009 JAMESON DO, KIERAN K 845.00 Sprain/strain Ankle 06/15/2009 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, HASEEB L 845.00 Sprain/strain Ankle 06/15/2009 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, HASEEB L 845.00 Sprain/strain Ankle 06/15/2009 JAMESON DO, KIERAN K 845.00 Sprain/strain Ankle 06/15/2009 JAMESON DO, KIERAN K 845.00 Sprain/strain Ankle 06/15/2009 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, HASEEB L 845.00 Sprain/strain Ankle 06/15/2009 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, HASEEB L 845.00 Sprain/strain Ankle 06/15/2009 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, HASEEB L 845.00 Sprain/strain Ankle 06/15/2009 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, HASEEB L 845.00 Sprain/strain Ankle 07/14/2009 JAMESON DO, KIERAN K 296.32 MO DEPRESSIVE RECURRENT MODERATE 07/14/2009 TRINO DO KIERAN K 300.01 AN PANIC DIS W/O AGORA 07/14/2009 296.32 MO DEPRESSIVE RECURRENT MODERATE 07/14/2009 300.01 AN PANIC DIS W/O AGORA 07/14/2009 JAMESON DO, KIERAN K 296.32 MO DEPRESSIVE RECURRENT MODERATE 07/14/2009 TRINO DO KIERAN K 300.01 AN PANIC DIS W/O AGORA 07/14/2009 JAMESON DO, KIERAN K 296.32 MO DEPRESSIVE RECURRENT MODERATE 07/14/2009 JAMESON DO KIERAN K 300.01 AN PANIC DIS W/O AGORA 07/14/2009 TRINO DO, KIERAN K 296.32 MO DEPRESSIVE RECURRENT MODERATE 07/14/2009 JAMESON DO KIERAN K 300.01 AN PANIC DIS W/O AGORA 07/14/2009 TRINO DO KIERAN K 296.32 MO DEPRESSIVE RECURRENT MODERATE 07/14/2009 TRINO DOBAYLEEA K 300.01 AN PANIC DIS W/O AGORA 07/14/2009 JAMESON DO KIERAN K 296.32 MO DEPRESSIVE RECURRENT MODERATE 07/14/2009 JAMESON DO KIERAN K 300.01 AN PANIC DIS W/O AGORA 07/14/2009 296.32 MO DEPRESSIVE RECURRENT MODERATE 07/14/2009 300.01 AN PANIC DIS W/O AGORA 07/14/2009 296.32 MO DEPRESSIVE RECURRENT MODERATE 07/14/2009 300.01 AN PANIC DIS W/O AGORA 07/14/2009 TRINO DOBAYLEEA K 296.32 MO DEPRESSIVE RECURRENT MODERATE 07/14/2009 TRINO DO KIERAN K 300.01 AN PANIC DIS W/O AGORA 07/14/2009 296.32 MO DEPRESSIVE RECURRENT MODERATE 07/14/2009 300.01 AN PANIC DIS W/O AGORA 07/14/2009 296.32 MO DEPRESSIVE RECURRENT MODERATE 07/14/2009 300.01 AN PANIC DIS W/O AGORA 07/14/2009 296.32 MO DEPRESSIVE RECURRENT MODERATE 07/14/2009 300.01 AN PANIC DIS W/O AGORA 07/14/2009 296.32 MO DEPRESSIVE RECURRENT MODERATE 07/14/2009 300.01 AN PANIC DIS W/O AGORA 07/14/2009 296.32 MO DEPRESSIVE RECURRENT MODERATE 07/14/2009 300.01 AN PANIC DIS W/O AGORA 07/14/2009 296.32 MO DEPRESSIVE RECURRENT MODERATE 07/14/2009 300.01 AN PANIC DIS W/O AGORA 07/14/2009 296.32 MO DEPRESSIVE RECURRENT MODERATE 07/14/2009 300.01 AN PANIC DIS W/O AGORA 07/14/2009 296.32 MO DEPRESSIVE RECURRENT MODERATE 07/14/2009 300.01 AN PANIC DIS W/O AGORA 07/14/2009 296.32 MO DEPRESSIVE RECURRENT MODERATE 07/14/2009 300.01 AN PANIC DIS W/O AGORA 07/14/2009 296.32 MO DEPRESSIVE RECURRENT MODERATE 07/14/2009 300.01 AN PANIC DIS W/O AGORA 07/14/2009 WADE CARVER MD 296.32 MO DEPRESSIVE RECURRENT MODERATE 07/14/2009 WADE CARVER MD 300.01 AN PANIC DIS W/O AGORA 07/14/2009 WADE CARVER MD 296.32 MO DEPRESSIVE RECURRENT MODERATE 07/14/2009 WADE CARVER MD 300.01 AN PANIC DIS W/O AGORA 07/14/2009 WADE CARVER MD 296.32 MO DEPRESSIVE RECURRENT MODERATE 07/14/2009 WADE CARVER MD 300.01 AN PANIC DIS W/O AGORA 07/14/2009 AZALEA JACOME MD 296.32 MO DEPRESSIVE RECURRENT MODERATE 07/14/2009 AZALEA JACOME MD 300.01 AN PANIC DIS W/O AGORA 07/14/2009 AZALEA JACOME MD 296.32 MO DEPRESSIVE RECURRENT MODERATE 07/14/2009 AZALEA JACOME MD 300.01 AN PANIC DIS W/O AGORA 07/14/2009 AZALEA JACOME MD 296.32 MO DEPRESSIVE RECURRENT MODERATE 07/14/2009 AZALEA JACOME MD 300.01 AN PANIC DIS W/O AGORA 07/14/2009 WADE CARVER MD 296.32 MO DEPRESSIVE RECURRENT MODERATE 07/14/2009 WADE CARVER MD 300.01 AN PANIC DIS W/O AGORA 07/14/2009 WADE CARVER MD 296.32 MO DEPRESSIVE RECURRENT MODERATE 07/14/2009 WADE CARVER MD 300.01 AN PANIC DIS W/O AGORA 07/14/2009 JAMESON DO, KIERAN K 296.32 MO DEPRESSIVE RECURRENT MODERATE 07/14/2009 JAMESON DO, KIERAN K 300.01 AN PANIC DIS W/O AGORA 07/14/2009 JAMESON DO, KIERAN K 296.32 MO DEPRESSIVE RECURRENT MODERATE 07/14/2009 JAMESON DO, KIERAN K 300.01 AN PANIC DIS W/O AGORA 07/14/2009 JAMESON DO, KIERAN K 296.32 MO DEPRESSIVE RECURRENT MODERATE 07/14/2009 JAMESON DO, KIERAN K 300.01 AN PANIC DIS W/O AGORA 07/14/2009 JAMESON DO, KIERAN K 296.32 MO DEPRESSIVE RECURRENT MODERATE 07/14/2009 JAMESON DO, KIERAN K 300.01 AN PANIC DIS W/O AGORA 07/14/2009 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, HASEEB L 296.32 MO DEPRESSIVE RECURRENT MODERATE 07/14/2009 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, HASEEB L 300.01 AN PANIC DIS W/O AGORA 07/14/2009 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, HASEEB L 296.32 MO DEPRESSIVE RECURRENT MODERATE 07/14/2009 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, HASEEB L 300.01 AN PANIC DIS W/O AGORA 07/14/2009 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, HASEEB L 296.32 MO DEPRESSIVE RECURRENT MODERATE 07/14/2009 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, HASEEB L 300.01 AN PANIC DIS W/O AGORA 07/14/2009 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, HASEEB L 296.32 MO DEPRESSIVE RECURRENT MODERATE 07/14/2009 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, HASEEB L 300.01 AN PANIC DIS W/O AGORA 07/14/2009 JAMESON DO, KIERAN K 296.32 MO DEPRESSIVE RECURRENT MODERATE 07/14/2009 JAMESON DO, KIERAN K 300.01 AN PANIC DIS W/O AGORA 07/14/2009 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, HASEEB L 296.32 MO DEPRESSIVE RECURRENT MODERATE 07/14/2009 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, HASEEB L 300.01 AN PANIC DIS W/O AGORA 07/14/2009 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, HASEEB L 296.32 MO DEPRESSIVE RECURRENT MODERATE 07/14/2009 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, HASEEB L 300.01 AN PANIC DIS W/O AGORA 07/14/2009 JAMESON DO, KIERAN K 296.32 MO DEPRESSIVE RECURRENT MODERATE 07/14/2009 JAMESON DO KIERAN K 300.01 AN PANIC DIS W/O AGORA 07/14/2009 JAMESON DO KIERAN K 296.32 MO DEPRESSIVE RECURRENT MODERATE 07/14/2009 JAMESON DO KIERAN K 300.01 AN PANIC DIS W/O AGORA 07/14/2009 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, HASEEB L 296.32 MO DEPRESSIVE RECURRENT MODERATE 07/14/2009 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, HASEEB L 300.01 AN PANIC DIS W/O AGORA 07/14/2009 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, HASEEB L 296.32 MO DEPRESSIVE RECURRENT MODERATE 07/14/2009 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, HASEEB L 300.01 AN PANIC DIS W/O AGORA 07/14/2009 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, HASEEB L 296.32 MO DEPRESSIVE RECURRENT MODERATE 07/14/2009 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, HASEEB L 300.01 AN PANIC DIS W/O AGORA 07/14/2009 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, HASEEB L 296.32 MO DEPRESSIVE RECURRENT MODERATE 07/14/2009 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, HASEEB L 300.01 AN PANIC DIS W/O AGORA 07/19/2009 TRINO VACA KIERAN K 786.50 Chest Pain Or Discomfort 07/19/2009 786.50 Chest Pain Or Discomfort 07/19/2009 TRINO VACA KIERAN K 786.50 Chest Pain Or Discomfort 07/19/2009 TRINO VACA KIERAN K 786.50 Chest Pain Or Discomfort 07/19/2009 TRINO VACA KIERAN K 786.50 Chest Pain Or Discomfort 07/19/2009 TRINO VACA KIERAN K 786.50 Chest Pain Or Discomfort 07/19/2009 JAMESON DO, KIERAN K 786.50 Chest Pain Or Discomfort 07/19/2009 786.50 Chest Pain Or Discomfort 07/19/2009 786.50 Chest Pain Or Discomfort 07/19/2009 JAMESON DO, KIERAN K 786.50 Chest Pain Or Discomfort 07/19/2009 786.50 Chest Pain Or Discomfort 07/19/2009 786.50 Chest Pain Or Discomfort 07/19/2009 786.50 Chest Pain Or Discomfort 07/19/2009 786.50 Chest Pain Or Discomfort 07/19/2009 786.50 Chest Pain Or Discomfort 07/19/2009 786.50 Chest Pain Or Discomfort 07/19/2009 786.50 Chest Pain Or Discomfort 07/19/2009 786.50 Chest Pain Or Discomfort 07/19/2009 786.50 Chest Pain Or Discomfort 07/19/2009 786.50 Chest Pain Or Discomfort 07/19/2009 WADE CARVER MD 786.50 Chest Pain Or Discomfort 07/19/2009 WADE CARVER MD 786.50 Chest Pain Or Discomfort 07/19/2009 WADE CARVER MD 786.50 Chest Pain Or Discomfort 07/19/2009 AZALEA JACOME MD 786.50 Chest Pain Or Discomfort 07/19/2009 AZALEA JACOME MD 786.50 Chest Pain Or Discomfort 07/19/2009 AZALEA JACOME MD 786.50 Chest Pain Or Discomfort 07/19/2009 WADE CARVER MD 786.50 Chest Pain Or Discomfort 07/19/2009 WADE CARVER MD 786.50 Chest Pain Or Discomfort 07/19/2009 JAMESON DO, KIERAN K 786.50 Chest Pain Or Discomfort 07/19/2009 JAMESON DO, KIERAN K 786.50 Chest Pain Or Discomfort 07/19/2009 JAMESON DO, KIERAN K 786.50 Chest Pain Or Discomfort 07/19/2009 JAMESON DO, KIERAN K 786.50 Chest Pain Or Discomfort 07/19/2009 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, HASEEB L 786.50 Chest Pain Or Discomfort 07/19/2009 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, HASEEB L 786.50 Chest Pain Or Discomfort 07/19/2009 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, HASEEB L 786.50 Chest Pain Or Discomfort 07/19/2009 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, HASEEB L 786.50 Chest Pain Or Discomfort 07/19/2009 JAMESON DO, KIERAN K 786.50 Chest Pain Or Discomfort 07/19/2009 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, HASEEB L 786.50 Chest Pain Or Discomfort 07/19/2009 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, HASEEB L 786.50 Chest Pain Or Discomfort 07/19/2009 JAMESON DO, KIERAN K 786.50 Chest Pain Or Discomfort 07/19/2009 JAMESON DO, KIERAN K 786.50 Chest Pain Or Discomfort 07/19/2009 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, HASEEB L 786.50 Chest Pain Or Discomfort 07/19/2009 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, HASEEB L 786.50 Chest Pain Or Discomfort 07/19/2009 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, HASEEB L 786.50 Chest Pain Or Discomfort 07/19/2009 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, HASEEB L 786.50 Chest Pain Or Discomfort 08/03/2009 JAMESON DO, KIERAN K 724.2 Lumbago 08/03/2009 JAMESON DO, KIERAN K 788.1 Pain During Urination (dysuria) 08/03/2009 724.2 Lumbago 08/03/2009 788.1 Pain During Urination (dysuria) 08/03/2009 JAMESON DO, KIERAN K 724.2 Lumbago 08/03/2009 JAMESON DO, KIERAN K 788.1 Pain During Urination (dysuria) 08/03/2009 JAMESON DO, KIERAN K 724.2 Lumbago 08/03/2009 JAMESON DO, KIERAN K 788.1 Pain During Urination (dysuria) 08/03/2009 JAMESON DO, KIERAN K 724.2 Lumbago 08/03/2009 JAMESON DO, KIERAN K 788.1 Pain During Urination (dysuria) 08/03/2009 JAMESON DO, KIERAN K 724.2 Lumbago 08/03/2009 JAMESON DO, KIERAN K 788.1 Pain During Urination (dysuria) 08/03/2009 JAMESON DO, KIERAN K 724.2 Lumbago 08/03/2009 JAMESON DO, KIERAN K 788.1 Pain During Urination (dysuria) 08/03/2009 724.2 Lumbago 08/03/2009 788.1 Pain During Urination (dysuria) 08/03/2009 724.2 Lumbago 08/03/2009 788.1 Pain During Urination (dysuria) 08/03/2009 JAMESON DO, KIERAN K 724.2 Lumbago 08/03/2009 JAMESON DO, KIERAN K 788.1 Pain During Urination (dysuria) 08/03/2009 724.2 Lumbago 08/03/2009 788.1 Pain During Urination (dysuria) 08/03/2009 724.2 Lumbago 08/03/2009 788.1 Pain During Urination (dysuria) 08/03/2009 724.2 Lumbago 08/03/2009 788.1 Pain During Urination (dysuria) 08/03/2009 724.2 Lumbago 08/03/2009 788.1 Pain During Urination (dysuria) 08/03/2009 724.2 Lumbago 08/03/2009 788.1 Pain During Urination (dysuria) 08/03/2009 724.2 Lumbago 08/03/2009 788.1 Pain During Urination (dysuria) 08/03/2009 724.2 Lumbago 08/03/2009 788.1 Pain During Urination (dysuria) 08/03/2009 724.2 Lumbago 08/03/2009 788.1 Pain During Urination (dysuria) 08/03/2009 724.2 Lumbago 08/03/2009 788.1 Pain During Urination (dysuria) 08/03/2009 724.2 Lumbago 08/03/2009 788.1 Pain During Urination (dysuria) 08/03/2009 WADE CARVER MD 724.2 Lumbago 08/03/2009 WADE CARVER MD 788.1 Pain During Urination (dysuria) 08/03/2009 WADE CARVER MD 724.2 Lumbago 08/03/2009 WADE CARVER MD 788.1 Pain During Urination (dysuria) 08/03/2009 WADE CARVER MD 724.2 Lumbago 08/03/2009 WADE CARVER MD 788.1 Pain During Urination (dysuria) 08/03/2009 AZALEA JACOME MD 724.2 Lumbago 08/03/2009 AZALEA JACOME MD 788.1 Pain During Urination (dysuria) 08/03/2009 AZALEA JACOME MD 724.2 Lumbago 08/03/2009 AZALEA JACOME MD 788.1 Pain During Urination (dysuria) 08/03/2009 AZALEA JACOME MD 724.2 Lumbago 08/03/2009 AZALEA JACOME MD 788.1 Pain During Urination (dysuria) 08/03/2009 WADE CARVER MD 724.2 Lumbago 08/03/2009 WEN MD, WADE M 788.1 Pain During Urination (dysuria) 08/03/2009 WADE CARVER MD 724.2 Lumbago 08/03/2009 WADE CARVER MD 788.1 Pain During Urination (dysuria) 08/03/2009 JAMESON DO, KIERAN K 724.2 Lumbago 08/03/2009 JAMESON DO, KIERAN K 788.1 Pain During Urination (dysuria) 08/03/2009 JAMESON DO, KIERAN K 724.2 Lumbago 08/03/2009 JAMESON DO, KIERAN K 788.1 Pain During Urination (dysuria) 08/03/2009 JAMESON DO, KIERAN K 724.2 Lumbago 08/03/2009 JAMESON DO, KIERAN K 788.1 Pain During Urination (dysuria) 08/03/2009 JAMESON DO, KIERAN K 724.2 Lumbago 08/03/2009 JAMESON DO, KIERAN K 788.1 Pain During Urination (dysuria) 08/03/2009 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, HASEEB L 724.2 Lumbago 08/03/2009 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, HASEEB L 788.1 Pain During Urination (dysuria) 08/03/2009 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, HASEEB L 724.2 Lumbago 08/03/2009 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, HASEEB L 788.1 Pain During Urination (dysuria) 08/03/2009 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, HASEEB L 724.2 Lumbago 08/03/2009 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, HASEEB L 788.1 Pain During Urination (dysuria) 08/03/2009 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, HASEEB L 724.2 Lumbago 08/03/2009 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, HASEEB L 788.1 Pain During Urination (dysuria) 08/03/2009 JAMESON DO, KIERAN K 724.2 Lumbago 08/03/2009 JAMESON DO, KIERAN K 788.1 Pain During Urination (dysuria) 08/03/2009 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, HASEEB L 724.2 Lumbago 08/03/2009 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, HASEEB L 788.1 Pain During Urination (dysuria) 08/03/2009 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, HASEEB L 724.2 Lumbago 08/03/2009 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, HASEEB L 788.1 Pain During Urination (dysuria) 08/03/2009 JAMESON DO, KIERAN K 724.2 Lumbago 08/03/2009 JAMESON DO, KIERAN K 788.1 Pain During Urination (dysuria) 08/03/2009 JAMESON DO, KIERAN K 724.2 Lumbago 08/03/2009 JAMESON DO, KIERAN K 788.1 Pain During Urination (dysuria) 08/03/2009 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, HASEEB L 724.2 Lumbago 08/03/2009 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, HASEEB L 788.1 Pain During Urination (dysuria) 08/03/2009 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, HASEEB L 724.2 Lumbago 08/03/2009 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, HASEEB L 788.1 Pain During Urination (dysuria) 08/03/2009 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, HASEEB L 724.2 Lumbago 08/03/2009 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, HASEEB L 788.1 Pain During Urination (dysuria) 08/03/2009 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, HASEEB L 724.2 Lumbago 08/03/2009 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, HASEEB L 788.1 Pain During Urination (dysuria) 08/12/2009 JAMESON DO, KIERAN K 338.29 Chronic Pain 08/12/2009 JAMESON DO, KIERAN K 414.00 CORONARY ARTERY DISEASE 08/12/2009 JAMESON DO, KIERAN K V15.82 tobacco use 08/12/2009 JAMESON DO, KIERAN K V76.51 Visit For: Screening Malignant Neoplasm Colon 08/12/2009 338.29 Chronic Pain 08/12/2009 414.00 CORONARY ARTERY DISEASE 08/12/2009 V15.82 tobacco use 08/12/2009 V76.51 Visit For: Screening Malignant Neoplasm Colon 08/12/2009 JAMESON DO, KIERAN K 338.29 Chronic Pain 08/12/2009 JAMESON DO, KIERAN K 414.00 CORONARY ARTERY DISEASE 08/12/2009 JAMESON DO, KIERAN K V15.82 tobacco use 08/12/2009 JAMESON DO, KIERAN K V76.51 Visit For: Screening Malignant Neoplasm Colon 08/12/2009 JAMESON DO, KIERAN K 338.29 Chronic Pain 08/12/2009 JAMESON DO, KIERAN K 414.00 CORONARY ARTERY DISEASE 08/12/2009 JAMESON DO, KIERAN K V15.82 tobacco use 08/12/2009 JAMESON DO, KIERAN K V76.51 Visit For: Screening Malignant Neoplasm Colon 08/12/2009 JAMESON DO, KIERAN K 338.29 Chronic Pain 08/12/2009 JAMESON DO, KIERAN K 414.00 CORONARY ARTERY DISEASE 08/12/2009 JAMESON DO, KIERAN K V15.82 tobacco use 08/12/2009 JAMESON DO, KIERAN K V76.51 Visit For: Screening Malignant Neoplasm Colon 08/12/2009 JAMESON DO, KIERAN K 338.29 Chronic Pain 08/12/2009 JAMESON DO, KIERAN K 414.00 CORONARY ARTERY DISEASE 08/12/2009 JAMESON DO, KIERAN K V15.82 tobacco use 08/12/2009 JAMESON DO, KIERAN K V76.51 Visit For: Screening Malignant Neoplasm Colon 08/12/2009 JAMESON DO, KIERAN K 338.29 Chronic Pain 08/12/2009 JAMESON DO, KIERAN K 414.00 CORONARY ARTERY DISEASE 08/12/2009 JAMESON DO, KIERAN K V15.82 tobacco use 08/12/2009 JAMESON DO, KIERAN K V76.51 Visit For: Screening Malignant Neoplasm Colon 08/12/2009 338.29 Chronic Pain 08/12/2009 414.00 CORONARY ARTERY DISEASE 08/12/2009 V15.82 tobacco use 08/12/2009 V76.51 Visit For: Screening Malignant Neoplasm Colon 08/12/2009 338.29 Chronic Pain 08/12/2009 414.00 CORONARY ARTERY DISEASE 08/12/2009 V15.82 tobacco use 08/12/2009 V76.51 Visit For: Screening Malignant Neoplasm Colon 08/12/2009 JAMESON DO, KIERAN K 338.29 Chronic Pain 08/12/2009 JAMESON DO, KIERAN K 414.00 CORONARY ARTERY DISEASE 08/12/2009 JAMESON DO, KIERAN K V15.82 tobacco use 08/12/2009 JAMESON DO, KIERAN K V76.51 Visit For: Screening Malignant Neoplasm Colon 08/12/2009 338.29 CHRONIC PAIN 08/12/2009 414.00 CORONARY ARTERY DISEASE 08/12/2009 V15.82 tobacco use 08/12/2009 V76.51 Visit For: Screening Malignant Neoplasm Colon 08/12/2009 338.29 CHRONIC PAIN 08/12/2009 414.00 CORONARY ARTERY DISEASE 08/12/2009 V15.82 tobacco use 08/12/2009 V76.51 Visit For: Screening Malignant Neoplasm Colon 08/12/2009 338.29 CHRONIC PAIN 08/12/2009 414.00 CORONARY ARTERY DISEASE 08/12/2009 V15.82 tobacco use 08/12/2009 V76.51 Visit For: Screening Malignant Neoplasm Colon 08/12/2009 338.29 CHRONIC PAIN 08/12/2009 414.00 CORONARY ARTERY DISEASE 08/12/2009 V15.82 tobacco use 08/12/2009 V76.51 Visit For: Screening Malignant Neoplasm Colon 08/12/2009 338.29 CHRONIC PAIN 08/12/2009 414.00 CORONARY ARTERY DISEASE 08/12/2009 V15.82 tobacco use 08/12/2009 V76.51 Visit For: Screening Malignant Neoplasm Colon 08/12/2009 338.29 CHRONIC PAIN 08/12/2009 414.00 CORONARY ARTERY DISEASE 08/12/2009 V15.82 tobacco use 08/12/2009 V76.51 Visit For: Screening Malignant Neoplasm Colon 08/12/2009 338.29 CHRONIC PAIN 08/12/2009 414.00 CORONARY ARTERY DISEASE 08/12/2009 V15.82 tobacco use 08/12/2009 V76.51 Visit For: Screening Malignant Neoplasm Colon 08/12/2009 338.29 CHRONIC PAIN 08/12/2009 414.00 CORONARY ARTERY DISEASE 08/12/2009 V15.82 tobacco use 08/12/2009 V76.51 Visit For: Screening Malignant Neoplasm Colon 08/12/2009 338.29 CHRONIC PAIN 08/12/2009 414.00 CORONARY ARTERY DISEASE 08/12/2009 V15.82 tobacco use 08/12/2009 V76.51 Visit For: Screening Malignant Neoplasm Colon 08/12/2009 338.29 CHRONIC PAIN 08/12/2009 414.00 CORONARY ARTERY DISEASE 08/12/2009 V15.82 tobacco use 08/12/2009 V76.51 Visit For: Screening Malignant Neoplasm Colon 08/12/2009 WADE CARVER MD 338.29 CHRONIC PAIN 08/12/2009 WADE CARVER MD 414.00 CORONARY ARTERY DISEASE 08/12/2009 WADE CARVER MD V15.82 tobacco use 08/12/2009 WADE CARVER MD V76.51 Visit For: Screening Malignant Neoplasm Colon 08/12/2009 WADE CARVER MD 338.29 CHRONIC PAIN 08/12/2009 WADE CARVER MD 414.00 CORONARY ARTERY DISEASE 08/12/2009 WADE CARVER MD V15.82 tobacco use 08/12/2009 WADE CARVER MD V76.51 Visit For: Screening Malignant Neoplasm Colon 08/12/2009 WADE CARVER MD 338.29 CHRONIC PAIN 08/12/2009 WADE CARVER MD 414.00 CORONARY ARTERY DISEASE 08/12/2009 WADE CARVER MD V15.82 tobacco use 08/12/2009 WADE CARVER MD V76.51 Visit For: Screening Malignant Neoplasm Colon 08/12/2009 AZALEA JACOME MD 338.29 CHRONIC PAIN 08/12/2009 AZALEA JACOME MD 414.00 CORONARY ARTERY DISEASE 08/12/2009 AZALEA JACOME MD V15.82 tobacco use 08/12/2009 AZALEA JACOME MD V76.51 Visit For: Screening Malignant Neoplasm Colon 08/12/2009 AZALEA JACOME MD 338.29 CHRONIC PAIN 08/12/2009 AZALEA JACOME MD 414.00 CORONARY ARTERY DISEASE 08/12/2009 AZALEA JACOME MD V15.82 tobacco use 08/12/2009 AZALEA JACOME MD V76.51 Visit For: Screening Malignant Neoplasm Colon 08/12/2009 AZALEA JACOME MD 338.29 CHRONIC PAIN 08/12/2009 AZALEA JACOME MD 414.00 CORONARY ARTERY DISEASE 08/12/2009 AZALEA JACOME MD V15.82 tobacco use 08/12/2009 AZALEA JACOME MD V76.51 Visit For: Screening Malignant Neoplasm Colon 08/12/2009 WADE CARVER MD 338.29 CHRONIC PAIN 08/12/2009 WADE CARVER MD 414.00 CORONARY ARTERY DISEASE 08/12/2009 WADE CARVER MD V15.82 tobacco use 08/12/2009 WADE CARVER MD V76.51 Visit For: Screening Malignant Neoplasm Colon 08/12/2009 WADE CARVER MD 338.29 CHRONIC PAIN 08/12/2009 WEN VEGA, WADE Ramírez 414.00 CORONARY ARTERY DISEASE 08/12/2009 WADE CARVER MD V15.82 tobacco use 08/12/2009 WADE CARVER MD V76.51 Visit For: Screening Malignant Neoplasm Colon 08/12/2009 JAMESON DO, KIERAN K 338.29 CHRONIC PAIN 08/12/2009 JAMESON DO, KIERAN K 414.00 CORONARY ARTERY DISEASE 08/12/2009 JAMESON DO, KIERAN K V15.82 tobacco use 08/12/2009 JAMESON DO, KIERAN K V76.51 Visit For: Screening Malignant Neoplasm Colon 08/12/2009 JAMESON DO, KIERAN K 338.29 CHRONIC PAIN 08/12/2009 JAMESON DO, KIERAN K 414.00 CORONARY ARTERY DISEASE 08/12/2009 JAMESON DO, KIERAN K V15.82 tobacco use 08/12/2009 JAMESON DO, KIERAN K V76.51 Visit For: Screening Malignant Neoplasm Colon 08/12/2009 JAMESON DO, KIERAN K 338.29 CHRONIC PAIN 08/12/2009 JAMESON DO, KIERAN K 414.00 CORONARY ARTERY DISEASE 08/12/2009 JAMESON DO, KIERAN K V15.82 tobacco use 08/12/2009 JAMESON DO, KIERAN K V76.51 Visit For: Screening Malignant Neoplasm Colon 08/12/2009 JAMESON DO, KIERAN K 338.29 CHRONIC PAIN 08/12/2009 JAMESON DO, KIERAN K 414.00 CORONARY ARTERY DISEASE 08/12/2009 JAMESON DO, KIERAN K V15.82 tobacco use 08/12/2009 JAMESON DO, KIERAN K V76.51 Visit For: Screening Malignant Neoplasm Colon 08/12/2009 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, HASEEB L 338.29 CHRONIC PAIN 08/12/2009 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, HASEEB L 414.00 CORONARY ARTERY DISEASE 08/12/2009 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, HASEEB L V15.82 tobacco use 08/12/2009 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, HASEEB L V76.51 Visit For: Screening Malignant Neoplasm Colon 08/12/2009 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, HASEEB L 338.29 CHRONIC PAIN 08/12/2009 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, HASEEB L 414.00 CORONARY ARTERY DISEASE 08/12/2009 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, HASEEB L V15.82 tobacco use 08/12/2009 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, HASEEB L V76.51 Visit For: Screening Malignant Neoplasm Colon 08/12/2009 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, HASEEB L 338.29 CHRONIC PAIN 08/12/2009 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, HASEEB L 414.00 CORONARY ARTERY DISEASE 08/12/2009 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, HASEEB L V15.82 tobacco use 08/12/2009 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, HASEEB L V76.51 Visit For: Screening Malignant Neoplasm Colon 08/12/2009 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, HASEEB L 338.29 CHRONIC PAIN 08/12/2009 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, HASEEB L 414.00 CORONARY ARTERY DISEASE 08/12/2009 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, HASEEB L V15.82 tobacco use 08/12/2009 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, HASEEB L V76.51 Visit For: Screening Malignant Neoplasm Colon 08/12/2009 JAMESON DO, KIERAN K 338.29 CHRONIC PAIN 08/12/2009 JAMESON DO, KIERAN K 414.00 CORONARY ARTERY DISEASE 08/12/2009 JAMESON DO, KIERAN K V15.82 tobacco use 08/12/2009 JAMESON DO, KIERAN K V76.51 Visit For: Screening Malignant Neoplasm Colon 08/12/2009 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, HASEEB L 338.29 CHRONIC PAIN 08/12/2009 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, HASEEB L 414.00 CORONARY ARTERY DISEASE 08/12/2009 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, HASEEB L V15.82 tobacco use 08/12/2009 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, HASEEB L V76.51 Visit For: Screening Malignant Neoplasm Colon 08/12/2009 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, HASEEB L 338.29 CHRONIC PAIN 08/12/2009 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, HASEEB L 414.00 CORONARY ARTERY DISEASE 08/12/2009 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, HASEEB L V15.82 tobacco use 08/12/2009 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, HASEEB L V76.51 Visit For: Screening Malignant Neoplasm Colon 08/12/2009 JAMESON DO, KIERAN K 338.29 CHRONIC PAIN 08/12/2009 JAMESON DO, KIERAN K 414.00 CORONARY ARTERY DISEASE 08/12/2009 JAMESON DO, KIERAN K V15.82 tobacco use 08/12/2009 JAMESON DO, KIERAN K V76.51 Visit For: Screening Malignant Neoplasm Colon 08/12/2009 JAMESON DO, KIERAN K 338.29 CHRONIC PAIN 08/12/2009 JAMESON DO, KIERAN K 414.00 CORONARY ARTERY DISEASE 08/12/2009 JAMESON DO, KIERAN K V15.82 tobacco use 08/12/2009 JAMESON DO, KIERAN K V76.51 Visit For: Screening Malignant Neoplasm Colon 08/12/2009 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, HASEEB L 338.29 CHRONIC PAIN 08/12/2009 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, HASEEB L 414.00 CORONARY ARTERY DISEASE 08/12/2009 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, HASEEB L V15.82 tobacco use 08/12/2009 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, HASEEB L V76.51 Visit For: Screening Malignant Neoplasm Colon 08/12/2009 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, HASEEB L 338.29 CHRONIC PAIN 08/12/2009 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, HASEEB L 414.00 CORONARY ARTERY DISEASE 08/12/2009 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, HASEEB L V15.82 tobacco use 08/12/2009 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, HASEEB L V76.51 Visit For: Screening Malignant Neoplasm Colon 08/12/2009 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, HASEEB L 338.29 CHRONIC PAIN 08/12/2009 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, HASEEB L 414.00 CORONARY ARTERY DISEASE 08/12/2009 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, HASEEB L V15.82 tobacco use 08/12/2009 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, HASEEB L V76.51 Visit For: Screening Malignant Neoplasm Colon 08/12/2009 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, HASEEB L 338.29 CHRONIC PAIN 08/12/2009 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, HASEEB L 414.00 CORONARY ARTERY DISEASE 08/12/2009 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, HASEEB L V15.82 tobacco use 08/12/2009 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, HASEEB L V76.51 Visit For: Screening Malignant Neoplasm Colon 09/21/2009 JAMESON DO KIERAN K 719.46 Joint Pain, Localized In The Knee 09/21/2009 JAMESON DO KIERAN K 786.09 Difficulty Breathing (dyspnea) 09/21/2009 719.46 Joint Pain, Localized In The Knee 09/21/2009 786.09 Difficulty Breathing (dyspnea) 09/21/2009 JAMESON DO, KIERAN K 719.46 Joint Pain, Localized In The Knee 09/21/2009 JAMESON DO, KIERAN K 786.09 Difficulty Breathing (dyspnea) 09/21/2009 JAMESON DO, KIERAN K 719.46 Joint Pain, Localized In The Knee 09/21/2009 JAMESON DO, KIERAN K 786.09 Difficulty Breathing (dyspnea) 09/21/2009 JAMESON DO, KIERAN K 719.46 Joint Pain, Localized In The Knee 09/21/2009 JAMESON DO, KIERAN K 786.09 Difficulty Breathing (dyspnea) 09/21/2009 JAMESON DO, KIERAN K 719.46 Joint Pain, Localized In The Knee 09/21/2009 JAMESON DO, KIERAN K 786.09 Difficulty Breathing (dyspnea) 09/21/2009 JAMESON DO, IKERAN K 719.46 Joint Pain, Localized In The Knee 09/21/2009 JAMESON DO, KIERAN K 786.09 Difficulty Breathing (dyspnea) 09/21/2009 719.46 Joint Pain, Localized In The Knee 09/21/2009 786.09 Difficulty Breathing (dyspnea) 09/21/2009 719.46 Joint Pain, Localized In The Knee 09/21/2009 786.09 Difficulty Breathing (dyspnea) 09/21/2009 JAMESON DO, KIERAN K 719.46 Joint Pain, Localized In The Knee 09/21/2009 JAMESON DO, KIERAN K 786.09 Difficulty Breathing (dyspnea) 09/21/2009 719.46 Joint Pain, Localized In The Knee 09/21/2009 786.09 Difficulty Breathing (dyspnea) 09/21/2009 719.46 Joint Pain, Localized In The Knee 09/21/2009 786.09 Difficulty Breathing (dyspnea) 09/21/2009 719.46 Joint Pain, Localized In The Knee 09/21/2009 786.09 Difficulty Breathing (dyspnea) 09/21/2009 719.46 Joint Pain, Localized In The Knee 09/21/2009 786.09 Difficulty Breathing (dyspnea) 09/21/2009 719.46 Joint Pain, Localized In The Knee 09/21/2009 786.09 Difficulty Breathing (dyspnea) 09/21/2009 719.46 Joint Pain, Localized In The Knee 09/21/2009 786.09 Difficulty Breathing (dyspnea) 09/21/2009 719.46 Joint Pain, Localized In The Knee 09/21/2009 786.09 Difficulty Breathing (dyspnea) 09/21/2009 719.46 Joint Pain, Localized In The Knee 09/21/2009 786.09 Difficulty Breathing (dyspnea) 09/21/2009 719.46 Joint Pain, Localized In The Knee 09/21/2009 786.09 Difficulty Breathing (dyspnea) 09/21/2009 719.46 Joint Pain, Localized In The Knee 09/21/2009 786.09 Difficulty Breathing (dyspnea) 09/21/2009 WADE CARVER MD 719.46 Joint Pain, Localized In The Knee 09/21/2009 WADE CARVER MD 786.09 Difficulty Breathing (dyspnea) 09/21/2009 WADE CARVER MD 719.46 Joint Pain, Localized In The Knee 09/21/2009 WADE CARVER MD 786.09 Difficulty Breathing (dyspnea) 09/21/2009 WADE CARVER MD 719.46 Joint Pain, Localized In The Knee 09/21/2009 WADE CARVER MD 786.09 Difficulty Breathing (dyspnea) 09/21/2009 AZALEA JACOME MD 719.46 Joint Pain, Localized In The Knee 09/21/2009 AZALEA JACOME MD 786.09 Difficulty Breathing (dyspnea) 09/21/2009 AZALEA JACOME MD 719.46 Joint Pain, Localized In The Knee 09/21/2009 AZALEA JACOME MD 786.09 Difficulty Breathing (dyspnea) 09/21/2009 AZALEA JACOME MD 719.46 Joint Pain, Localized In The Knee 09/21/2009 AZALEA JACOME MD 786.09 Difficulty Breathing (dyspnea) 09/21/2009 WADE CARVER MD 719.46 Joint Pain, Localized In The Knee 09/21/2009 WADE CARVER MD 786.09 Difficulty Breathing (dyspnea) 09/21/2009 WADE CARVER MD 719.46 Joint Pain, Localized In The Knee 09/21/2009 WADE CARVER MD 786.09 Difficulty Breathing (dyspnea) 09/21/2009 KIERAN JAMESON DO 719.46 Joint Pain, Localized In The Knee 09/21/2009 JMAESON DO, KIERAN K 786.09 Difficulty Breathing (dyspnea) 09/21/2009 JAMESON DO, KIERAN K 719.46 Joint Pain, Localized In The Knee 09/21/2009 JAMESON DO, KIERAN K 786.09 Difficulty Breathing (dyspnea) 09/21/2009 JAMESON DO, KIERAN K 719.46 Joint Pain, Localized In The Knee 09/21/2009 AJMESON DO, KIERAN K 786.09 Difficulty Breathing (dyspnea) 09/21/2009 JAMESON DO, KIERAN K 719.46 Joint Pain, Localized In The Knee 09/21/2009 JAMESON DO, KIERAN K 786.09 Difficulty Breathing (dyspnea) 09/21/2009 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, HASEEB L 719.46 Joint Pain, Localized In The Knee 09/21/2009 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, HASEEB L 786.09 Difficulty Breathing (dyspnea) 09/21/2009 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, HASEEB L 719.46 Joint Pain, Localized In The Knee 09/21/2009 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, HASEEB L 786.09 Difficulty Breathing (dyspnea) 09/21/2009 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, HASEEB L 719.46 Joint Pain, Localized In The Knee 09/21/2009 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, HASEEB L 786.09 Difficulty Breathing (dyspnea) 09/21/2009 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, HASEEB L 719.46 Joint Pain, Localized In The Knee 09/21/2009 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, HASEEB L 786.09 Difficulty Breathing (dyspnea) 09/21/2009 JAMESON DO, KIERAN K 719.46 Joint Pain, Localized In The Knee 09/21/2009 JAMESON DO, KIERAN K 786.09 Difficulty Breathing (dyspnea) 09/21/2009 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, HASEEB L 719.46 Joint Pain, Localized In The Knee 09/21/2009 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, HASEEB L 786.09 Difficulty Breathing (dyspnea) 09/21/2009 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, HASEEB L 719.46 Joint Pain, Localized In The Knee 09/21/2009 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, HASEEB L 786.09 Difficulty Breathing (dyspnea) 09/21/2009 JAMESON DO, KIERAN K 719.46 Joint Pain, Localized In The Knee 09/21/2009 JAMESON DO, KIERAN K 786.09 Difficulty Breathing (dyspnea) 09/21/2009 JAMESON DO, KIERAN K 719.46 Joint Pain, Localized In The Knee 09/21/2009 JAMESON DO, KIERAN K 786.09 Difficulty Breathing (dyspnea) 09/21/2009 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, HASEEB L 719.46 Joint Pain, Localized In The Knee 09/21/2009 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, HASEEB L 786.09 Difficulty Breathing (dyspnea) 09/21/2009 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, HASEEB L 719.46 Joint Pain, Localized In The Knee 09/21/2009 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, HASEEB L 786.09 Difficulty Breathing (dyspnea) 09/21/2009 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, HASEEB L 719.46 Joint Pain, Localized In The Knee 09/21/2009 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, HASEEB L 786.09 Difficulty Breathing (dyspnea) 09/21/2009 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, HASEEB L 719.46 Joint Pain, Localized In The Knee 09/21/2009 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, HASEEB L 786.09 Difficulty Breathing (dyspnea) 10/06/2009 JAMESON DO, KIERAN K 414.01 CAD 10/06/2009 JAMESON DO, KIERAN K 719.45 joint pain, localized in the hip 10/06/2009 414.01 CAD 10/06/2009 719.45 joint pain, localized in the hip 10/06/2009 JAMESON DO, KIERAN K 414.01 CAD 10/06/2009 JAMESON DO, KIERAN K 719.45 joint pain, localized in the hip 10/06/2009 JAMESON DO, KIERAN K 414.01 CAD 10/06/2009 JAMESON DO, KIERAN K 719.45 joint pain, localized in the hip 10/06/2009 JAMESON DO, KIERAN K 414.01 CAD 10/06/2009 JAMESON DO, KIERAN K 719.45 joint pain, localized in the hip 10/06/2009 JAMESON DO, KIERAN K 414.01 CAD 10/06/2009 JAMESON DO, KIERAN K 719.45 joint pain, localized in the hip 10/06/2009 JAMESON DO, KIERAN K 414.01 CAD 10/06/2009 JAMESON DO, KIERAN K 719.45 joint pain, localized in the hip 10/06/2009 414.01 CAD 10/06/2009 719.45 joint pain, localized in the hip 10/06/2009 414.01 CAD 10/06/2009 719.45 joint pain, localized in the hip 10/06/2009 JAMESON KIERAN VACA K 414.01 CAD 10/06/2009 JAMESON DOKIERAN K 719.45 joint pain, localized in the hip 10/06/2009 414.01 CAD 10/06/2009 719.45 joint pain, localized in the hip 10/06/2009 414.01 CAD 10/06/2009 719.45 joint pain, localized in the hip 10/06/2009 414.01 CAD 10/06/2009 719.45 joint pain, localized in the hip 10/06/2009 414.01 CAD 10/06/2009 719.45 joint pain, localized in the hip 10/06/2009 414.01 CAD 10/06/2009 719.45 joint pain, localized in the hip 10/06/2009 414.01 CAD 10/06/2009 719.45 joint pain, localized in the hip 10/06/2009 414.01 CAD 10/06/2009 719.45 joint pain, localized in the hip 10/06/2009 414.01 CAD 10/06/2009 719.45 joint pain, localized in the hip 10/06/2009 414.01 CAD 10/06/2009 719.45 joint pain, localized in the hip 10/06/2009 414.01 CAD 10/06/2009 719.45 joint pain, localized in the hip 10/06/2009 WADE CARVER MD 414.01 CAD 10/06/2009 WADE CARVER MD 719.45 joint pain, localized in the hip 10/06/2009 WADE CARVER MD 414.01 CAD 10/06/2009 WADE CARVER MD 719.45 joint pain, localized in the hip 10/06/2009 WADE CARVER MD 414.01 CAD 10/06/2009 WADE CARVER MD 719.45 joint pain, localized in the hip 10/06/2009 AZALEA JACOME MD 414.01 CAD 10/06/2009 AZALEA JACOME MD 719.45 joint pain, localized in the hip 10/06/2009 AZALEA JACOME MD.01 CAD 10/06/2009 AZALEA JACOME MD 719.45 joint pain, localized in the hip 10/06/2009 NAA VEGA, AZALEA 414.01 CAD 10/06/2009 AZALEA AJCOME MD 719.45 joint pain, localized in the hip 10/06/2009 WEN VEGA, WADE Ramírez 414.01 CAD 10/06/2009 WADE CARVER MD 719.45 joint pain, localized in the hip 10/06/2009 WEN VEGA, WADE Ramírez 414.01 CAD 10/06/2009 WADE CARVER MD 719.45 joint pain, localized in the hip 10/06/2009 JAMESON DO, KIERAN K 414.01 CAD 10/06/2009 JAMESON DO, KIERAN K 719.45 joint pain, localized in the hip 10/06/2009 JAMESON DO, KIERAN K 414.01 CAD 10/06/2009 JAMESON DO, KIERAN K 719.45 joint pain, localized in the hip 10/06/2009 JAMESON DO, KIERAN K 414.01 CAD 10/06/2009 JAMESON DO, KIERAN K 719.45 joint pain, localized in the hip 10/06/2009 JAMESON DO, KIERAN K 414.01 CAD 10/06/2009 JAMESON DO, KIERAN K 719.45 joint pain, localized in the hip 10/06/2009 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, HASEEB L 414.01 CAD 10/06/2009 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, HASEEB L 719.45 joint pain, localized in the hip 10/06/2009 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, HASEEB L 414.01 CAD 10/06/2009 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, HASEEB L 719.45 joint pain, localized in the hip 10/06/2009 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, HASEEB L 414.01 CAD 10/06/2009 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, HASEEB L 719.45 joint pain, localized in the hip 10/06/2009 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, HASEEB L 414.01 CAD 10/06/2009 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, HASEEB L 719.45 joint pain, localized in the hip 10/06/2009 JAMESON DO, KIERAN K 414.01 CAD 10/06/2009 JAMESON DO, KIERAN K 719.45 joint pain, localized in the hip 10/06/2009 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, HASEEB L 414.01 CAD 10/06/2009 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, HASEEB L 719.45 joint pain, localized in the hip 10/06/2009 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, HASEEB L 414.01 CAD 10/06/2009 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, HASEEB L 719.45 joint pain, localized in the hip 10/06/2009 JAMESON DO, KIERAN K 414.01 CAD 10/06/2009 JAMESON DO, KIERAN K 719.45 joint pain, localized in the hip 10/06/2009 JAMESON DO, KIERAN K 414.01 CAD 10/06/2009 JAMESON DO, KIERAN K 719.45 joint pain, localized in the hip 10/06/2009 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, HASEEB L 414.01 CAD 10/06/2009 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, HASEEB L 719.45 joint pain, localized in the hip 10/06/2009 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, HASEEB L 414.01 CAD 10/06/2009 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, HASEEB L 719.45 joint pain, localized in the hip 10/06/2009 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, HASEEB L 414.01 CAD 10/06/2009 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, HASEEB L 719.45 joint pain, localized in the hip 10/06/2009 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, HASEEB L 414.01 CAD 10/06/2009 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, HASEEB L 719.45 joint pain, localized in the hip 10/13/2009 Ot 272.4 10/13/2009 Ot 786.59 10/14/2009 JAMESON DO, KIERAN K 372.00 Acute Conjunctivitis, Unspecified 10/14/2009 372.00 Acute Conjunctivitis, Unspecified 10/14/2009 JAMESON DO, KIERAN K 372.00 Acute Conjunctivitis, Unspecified 10/14/2009 JAMESON DO, KIERAN K 372.00 Acute Conjunctivitis, Unspecified 10/14/2009 JAMESON DO, KIERAN K 372.00 Acute Conjunctivitis, Unspecified 10/14/2009 JAMESON DO, KIERAN K 372.00 Acute Conjunctivitis, Unspecified 10/14/2009 JAMESON DO, KIERAN K 372.00 Acute Conjunctivitis, Unspecified 10/14/2009 372.00 Acute Conjunctivitis, Unspecified 10/14/2009 372.00 Acute Conjunctivitis, Unspecified 10/14/2009 JAMESON DO, KIERAN K 372.00 Acute Conjunctivitis, Unspecified 10/14/2009 372.00 Acute Conjunctivitis, Unspecified 10/14/2009 372.00 Acute Conjunctivitis, Unspecified 10/14/2009 372.00 Acute Conjunctivitis, Unspecified 10/14/2009 372.00 Acute Conjunctivitis, Unspecified 10/14/2009 372.00 Acute Conjunctivitis, Unspecified 10/14/2009 372.00 Acute Conjunctivitis, Unspecified 10/14/2009 372.00 Acute Conjunctivitis, Unspecified 10/14/2009 372.00 Acute Conjunctivitis, Unspecified 10/14/2009 372.00 Acute Conjunctivitis, Unspecified 10/14/2009 372.00 Acute Conjunctivitis, Unspecified 10/14/2009 WEN VEGA, WADE Ramírez 372.00 Acute Conjunctivitis, Unspecified 10/14/2009 WEN VEGA, WADE Ramírez 372.00 Acute Conjunctivitis, Unspecified 10/14/2009 WEN VEGA, WADE Ramírez 372.00 Acute Conjunctivitis, Unspecified 10/14/2009 NAA VEGA, AZALEA 372.00 Acute Conjunctivitis, Unspecified 10/14/2009 NAA VEGA, AZALEA 372.00 Acute Conjunctivitis, Unspecified 10/14/2009 AZALEA JACOME MD 372.00 Acute Conjunctivitis, Unspecified 10/14/2009 WEN VEGA, WADE Ramírez 372.00 Acute Conjunctivitis, Unspecified 10/14/2009 WEN VEGA, WADE Ramírez 372.00 Acute Conjunctivitis, Unspecified 10/14/2009 JAMESON DO, KIERAN K 372.00 Acute Conjunctivitis, Unspecified 10/14/2009 JAMESON DO, KEIRAN K 372.00 Acute Conjunctivitis, Unspecified 10/14/2009 JAMESON DO, KIERAN K 372.00 Acute Conjunctivitis, Unspecified 10/14/2009 JAMESON DO, KIERAN K 372.00 Acute Conjunctivitis, Unspecified 10/14/2009 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, HASEEB L 372.00 Acute Conjunctivitis, Unspecified 10/14/2009 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, HASEEB L 372.00 Acute Conjunctivitis, Unspecified 10/14/2009 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, HASEEB L 372.00 Acute Conjunctivitis, Unspecified 10/14/2009 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, HASEEB L 372.00 Acute Conjunctivitis, Unspecified 10/14/2009 JAMESON DO, KIERAN K 372.00 Acute Conjunctivitis, Unspecified 10/14/2009 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, HASEEB L 372.00 Acute Conjunctivitis, Unspecified 10/14/2009 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, HASEEB L 372.00 Acute Conjunctivitis, Unspecified 10/14/2009 JAMESON DO, KIERAN K 372.00 Acute Conjunctivitis, Unspecified 10/14/2009 JAMESON DO, KIERAN K 372.00 Acute Conjunctivitis, Unspecified 10/14/2009 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, HASEEB L 372.00 Acute Conjunctivitis, Unspecified 10/14/2009 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, HASEEB L 372.00 Acute Conjunctivitis, Unspecified 10/14/2009 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, HASEEB L 372.00 Acute Conjunctivitis, Unspecified 10/14/2009 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, HASEEB L 372.00 Acute Conjunctivitis, Unspecified 10/21/2009 JAMESON DO, KIERAN K 715.15 OSTEOARTHROSIS, LOCALIZED, PRIMARY, PELVIC REGION AND THIGH 10/21/2009 715.15 OSTEOARTHROSIS, LOCALIZED, PRIMARY, PELVIC REGION AND THIGH 10/21/2009 JAMESON DO, KIERAN K 715.15 OSTEOARTHROSIS, LOCALIZED, PRIMARY, PELVIC REGION AND THIGH 10/21/2009 JAMESON DO, KIERAN K 715.15 OSTEOARTHROSIS, LOCALIZED, PRIMARY, PELVIC REGION AND THIGH 10/21/2009 JAMESON DO, KIERAN K 715.15 OSTEOARTHROSIS, LOCALIZED, PRIMARY, PELVIC REGION AND THIGH 10/21/2009 JAMESON DO, KIERAN K 715.15 OSTEOARTHROSIS, LOCALIZED, PRIMARY, PELVIC REGION AND THIGH 10/21/2009 JAMESON DO, KIERAN K 715.15 OSTEOARTHROSIS, LOCALIZED, PRIMARY, PELVIC REGION AND THIGH 10/21/2009 715.15 OSTEOARTHROSIS, LOCALIZED, PRIMARY, PELVIC REGION AND THIGH 10/21/2009 715.15 OSTEOARTHROSIS, LOCALIZED, PRIMARY, PELVIC REGION AND THIGH 10/21/2009 JAMESON DO, KIERAN K 715.15 OSTEOARTHROSIS, LOCALIZED, PRIMARY, PELVIC REGION AND THIGH 10/21/2009 715.15 OSTEOARTHROSIS, LOCALIZED, PRIMARY, PELVIC REGION AND THIGH 10/21/2009 715.15 OSTEOARTHROSIS, LOCALIZED, PRIMARY, PELVIC REGION AND THIGH 10/21/2009 715.15 OSTEOARTHROSIS, LOCALIZED, PRIMARY, PELVIC REGION AND THIGH 10/21/2009 715.15 OSTEOARTHROSIS, LOCALIZED, PRIMARY, PELVIC REGION AND THIGH 10/21/2009 715.15 OSTEOARTHROSIS, LOCALIZED, PRIMARY, PELVIC REGION AND THIGH 10/21/2009 715.15 OSTEOARTHROSIS, LOCALIZED, PRIMARY, PELVIC REGION AND THIGH 10/21/2009 715.15 OSTEOARTHROSIS, LOCALIZED, PRIMARY, PELVIC REGION AND THIGH 10/21/2009 715.15 OSTEOARTHROSIS, LOCALIZED, PRIMARY, PELVIC REGION AND THIGH 10/21/2009 715.15 OSTEOARTHROSIS, LOCALIZED, PRIMARY, PELVIC REGION AND THIGH 10/21/2009 715.15 OSTEOARTHROSIS, LOCALIZED, PRIMARY, PELVIC REGION AND THIGH 10/21/2009 WADE CARVER MD 715.15 OSTEOARTHROSIS, LOCALIZED, PRIMARY, PELVIC REGION AND THIGH 10/21/2009 WADE CARVER MD 715.15 OSTEOARTHROSIS, LOCALIZED, PRIMARY, PELVIC REGION AND THIGH 10/21/2009 WADE CARVER MD 715.15 OSTEOARTHROSIS, LOCALIZED, PRIMARY, PELVIC REGION AND THIGH 10/21/2009 AZALEA JACOME MD 715.15 OSTEOARTHROSIS, LOCALIZED, PRIMARY, PELVIC REGION AND THIGH 10/21/2009 AZALEA JACOME MD 715.15 OSTEOARTHROSIS, LOCALIZED, PRIMARY, PELVIC REGION AND THIGH 10/21/2009 AZALEA JACOME MD 715.15 OSTEOARTHROSIS, LOCALIZED, PRIMARY, PELVIC REGION AND THIGH 10/21/2009 WADE CARVER MD 715.15 OSTEOARTHROSIS, LOCALIZED, PRIMARY, PELVIC REGION AND THIGH 10/21/2009 WADE CARVER MD 715.15 OSTEOARTHROSIS, LOCALIZED, PRIMARY, PELVIC REGION AND THIGH 10/21/2009 KIERAN JAMESON DO 715.15 OSTEOARTHROSIS, LOCALIZED, PRIMARY, PELVIC REGION AND THIGH 10/21/2009 KIERAN JAMESON DO K 715.15 OSTEOARTHROSIS, LOCALIZED, PRIMARY, PELVIC REGION AND THIGH 10/21/2009 KIERAN JAMESON DO K 715.15 OSTEOARTHROSIS, LOCALIZED, PRIMARY, PELVIC REGION AND THIGH 10/21/2009 JAMESON DOBAYLEEA K 715.15 OSTEOARTHROSIS, LOCALIZED, PRIMARY, PELVIC REGION AND THIGH 10/21/2009 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, HASEEB L 715.15 OSTEOARTHROSIS, LOCALIZED, PRIMARY, PELVIC REGION AND THIGH 10/21/2009 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, HASEEB L 715.15 OSTEOARTHROSIS, LOCALIZED, PRIMARY, PELVIC REGION AND THIGH 10/21/2009 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, HASEEB L 715.15 OSTEOARTHROSIS, LOCALIZED, PRIMARY, PELVIC REGION AND THIGH 10/21/2009 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, HASEEB L 715.15 OSTEOARTHROSIS, LOCALIZED, PRIMARY, PELVIC REGION AND THIGH 10/21/2009 JAMESON DOBAYLEEA K 715.15 OSTEOARTHROSIS, LOCALIZED, PRIMARY, PELVIC REGION AND THIGH 10/21/2009 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, HASEEB L 715.15 OSTEOARTHROSIS, LOCALIZED, PRIMARY, PELVIC REGION AND THIGH 10/21/2009 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, 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 L 715.15 OSTEOARTHROSIS, LOCALIZED, PRIMARY, PELVIC REGION AND THIGH 10/21/2009 JAMESON DOBAYLEEA K 715.15 OSTEOARTHROSIS, LOCALIZED, PRIMARY, PELVIC REGION AND THIGH 10/21/2009 JAMESON DO KIERAN K 715.15 OSTEOARTHROSIS, LOCALIZED, PRIMARY, PELVIC REGION AND THIGH 10/21/2009 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, 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 L 715.15 OSTEOARTHROSIS, LOCALIZED, PRIMARY, PELVIC REGION AND THIGH 10/21/2009 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, HASEEB L 715.15 OSTEOARTHROSIS, LOCALIZED, PRIMARY, PELVIC REGION AND THIGH 10/21/2009 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, HASEEB L 715.15 OSTEOARTHROSIS, LOCALIZED, PRIMARY, PELVIC REGION AND THIGH 10/21/2009 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, HASEEB L 715.15 OSTEOARTHROSIS, LOCALIZED, PRIMARY, PELVIC REGION AND THIGH 11/12/2009 Ot 786.50 11/16/2009 KIERAN JAMESON DO 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, Tear Film Insufficiency, Unspecified 11/16/2009 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, Tear Film Insufficiency, Unspecified 11/16/2009 KIERAN JAMESON DO 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, Tear Film Insufficiency, Unspecified 11/16/2009 JAMESON DO, KIERAN 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, Tear Film Insufficiency, Unspecified 11/16/2009 JAMESON DO, KIERAN 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, Tear Film Insufficiency, Unspecified 11/16/2009 JAMESON DO, KIERAN 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, Tear Film Insufficiency, Unspecified 11/16/2009 TRINO DO, KIERAN 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, Tear Film Insufficiency, Unspecified 11/16/2009 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, Tear Film Insufficiency, Unspecified 11/16/2009 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, Tear Film Insufficiency, Unspecified 11/16/2009 TRINO DO, KIERAN 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, Tear Film Insufficiency, Unspecified 11/16/2009 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, Tear Film Insufficiency, Unspecified 11/16/2009 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, Tear Film Insufficiency, Unspecified 11/16/2009 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, Tear Film Insufficiency, Unspecified 11/16/2009 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, Tear Film Insufficiency, Unspecified 11/16/2009 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, Tear Film Insufficiency, Unspecified 11/16/2009 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, Tear Film Insufficiency, Unspecified 11/16/2009 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, Tear Film Insufficiency, Unspecified 11/16/2009 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, Tear Film Insufficiency, Unspecified 11/16/2009 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, Tear Film Insufficiency, Unspecified 11/16/2009 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, Tear Film Insufficiency, Unspecified 11/16/2009 WADE CARVRE MD 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, Tear Film Insufficiency, Unspecified 11/16/2009 WADE CARVER MD 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, Tear Film Insufficiency, Unspecified 11/16/2009 WADE CARVER MD 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, Tear Film Insufficiency, Unspecified 11/16/2009 AZALEA JACOME MD 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, Tear Film Insufficiency, Unspecified 11/16/2009 AZALEA JACOME MD.15 Lacrimal System, Tear Film Insufficiency, Unspecified 11/16/2009 AZALEA JACOME MD.15 Lacrimal System, Tear Film Insufficiency, Unspecified 11/16/2009 WADE CARVER MD.15 Lacrimal System, Tear Film Insufficiency, Unspecified 11/16/2009 LIZBETH CARVER MDA M 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, Tear Film Insufficiency, Unspecified 11/16/2009 JAMESON DO, KIERAN 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, Tear Film Insufficiency, Unspecified 11/16/2009 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, HASEEB L 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, Tear Film Insufficiency, Unspecified 11/16/2009 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, HASEEB L 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, Tear Film Insufficiency, Unspecified 11/16/2009 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, HASEEB L 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, Tear Film Insufficiency, Unspecified 12/02/2009 JAMESON DO, KIERAN K 724.02 SPINAL STENOSIS, LUMBAR REGION 12/02/2009 724.02 SPINAL STENOSIS, LUMBAR REGION 12/02/2009 JAMESON DO, KIERAN K 724.02 SPINAL STENOSIS, LUMBAR REGION 12/02/2009 JAMESON DO, KIERAN K 724.02 SPINAL STENOSIS, LUMBAR REGION 12/02/2009 JAMESON DO, KIERAN K 724.02 SPINAL STENOSIS, LUMBAR REGION 12/02/2009 JAMESON DO, KIERAN K 724.02 SPINAL STENOSIS, LUMBAR REGION 12/02/2009 JAMESON DO, KIERAN K 724.02 SPINAL STENOSIS, LUMBAR REGION 12/02/2009 724.02 SPINAL STENOSIS, LUMBAR REGION 12/02/2009 724.02 SPINAL STENOSIS, LUMBAR REGION 12/02/2009 JAMESON DO, KIERAN K 724.02 SPINAL STENOSIS, LUMBAR REGION 12/02/2009 724.02 SPINAL STENOSIS, LUMBAR REGION 12/02/2009 724.02 SPINAL STENOSIS, LUMBAR REGION 12/02/2009 724.02 SPINAL STENOSIS, LUMBAR REGION 12/02/2009 724.02 SPINAL STENOSIS, LUMBAR REGION 12/02/2009 724.02 SPINAL STENOSIS, LUMBAR REGION 12/02/2009 724.02 SPINAL STENOSIS, LUMBAR REGION 12/02/2009 724.02 SPINAL STENOSIS, LUMBAR REGION 12/02/2009 724.02 SPINAL STENOSIS, LUMBAR REGION 12/02/2009 724.02 SPINAL STENOSIS, LUMBAR REGION 12/02/2009 724.02 SPINAL STENOSIS, LUMBAR REGION 12/02/2009 WEN VEGA, WADE Ramírez 724.02 SPINAL STENOSIS, LUMBAR REGION 12/02/2009 WEN VEGA, WADE Ramírez 724.02 SPINAL STENOSIS, LUMBAR REGION 12/02/2009 WEN VEGA, WADE Ramírez 724.02 SPINAL STENOSIS, LUMBAR REGION 12/02/2009 AZALEA JACOME MD 724.02 SPINAL STENOSIS, LUMBAR REGION 12/02/2009 NAA VEGA, AZALEA 724.02 SPINAL STENOSIS, LUMBAR REGION 12/02/2009 NAA VEGA, AZALEA 724.02 SPINAL STENOSIS, LUMBAR REGION 12/02/2009 WEN VEGA, WADE Ramírez 724.02 SPINAL STENOSIS, LUMBAR REGION 12/02/2009 WEN VEGA, WADE Ramírez 724.02 SPINAL STENOSIS, LUMBAR REGION 12/02/2009 JAMESON DO, KIERAN K 724.02 SPINAL STENOSIS, LUMBAR REGION 12/02/2009 JAMESON DO, KIERAN K 724.02 SPINAL STENOSIS, LUMBAR REGION 12/02/2009 JAMESON DO, KIERAN K 724.02 SPINAL STENOSIS, LUMBAR REGION 12/02/2009 JAMESON DO, KIERAN K 724.02 SPINAL STENOSIS, LUMBAR REGION 12/02/2009 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, HASEEB L 724.02 SPINAL STENOSIS, LUMBAR REGION 12/02/2009 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, HASEEB L 724.02 SPINAL STENOSIS, LUMBAR REGION 12/02/2009 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, HASEEB L 724.02 SPINAL STENOSIS, LUMBAR REGION 12/02/2009 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, HASEEB L 724.02 SPINAL STENOSIS, LUMBAR REGION 12/02/2009 JAMESON DO, KIERAN K 724.02 SPINAL STENOSIS, LUMBAR REGION 12/02/2009 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, HASEEB L 724.02 SPINAL STENOSIS, LUMBAR REGION 12/02/2009 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, HASEEB L 724.02 SPINAL STENOSIS, LUMBAR REGION 12/02/2009 JAMESON DO, KIERAN K 724.02 SPINAL STENOSIS, LUMBAR REGION 12/02/2009 JAMESON DO, KIERAN K 724.02 SPINAL STENOSIS, LUMBAR REGION 12/02/2009 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, HASEEB L 724.02 SPINAL STENOSIS, LUMBAR REGION 12/02/2009 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, HASEEB L 724.02 SPINAL STENOSIS, LUMBAR REGION 12/02/2009 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, HASEEB L 724.02 SPINAL STENOSIS, LUMBAR REGION 12/02/2009 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, HASEEB L 724.02 SPINAL STENOSIS, LUMBAR REGION 01/12/2010 JAMESON DO, KIERAN K 783.1 Recent Weight Gain (___ Lbs) [reported] 01/12/2010 783.1 Recent Weight Gain (___ Lbs) [reported] 01/12/2010 TRINO DO KIERAN K 783.1 Recent Weight Gain (___ Lbs) [reported] 01/12/2010 JAMESON DO KIERAN K 783.1 Recent Weight Gain (___ Lbs) [reported] 01/12/2010 JAMESON DO, KIERAN K 783.1 Recent Weight Gain (___ Lbs) [reported] 01/12/2010 JAMESON DO KIERAN K 783.1 Recent Weight Gain (___ Lbs) [reported] 01/12/2010 JAMESON DO KIERAN K 783.1 Recent Weight Gain (___ Lbs) [reported] 01/12/2010 783.1 Recent Weight Gain (___ Lbs) [reported] 01/12/2010 783.1 Recent Weight Gain (___ Lbs) [reported] 01/12/2010 KIERAN JAMESON DO 783.1 Recent Weight Gain (___ Lbs) [reported] 01/12/2010 783.1 Recent Weight Gain (___ Lbs) [reported] 01/12/2010 783.1 Recent Weight Gain (___ Lbs) [reported] 01/12/2010 783.1 Recent Weight Gain (___ Lbs) [reported] 01/12/2010 783.1 Recent Weight Gain (___ Lbs) [reported] 01/12/2010 783.1 Recent Weight Gain (___ Lbs) [reported] 01/12/2010 783.1 Recent Weight Gain (___ Lbs) [reported] 01/12/2010 783.1 Recent Weight Gain (___ Lbs) [reported] 01/12/2010 783.1 Recent Weight Gain (___ Lbs) [reported] 01/12/2010 783.1 Recent Weight Gain (___ Lbs) [reported] 01/12/2010 783.1 Recent Weight Gain (___ Lbs) [reported] 01/12/2010 WADE CARVER MD 783.1 Recent Weight Gain (___ Lbs) [reported] 01/12/2010 WADE CARVER MD 783.1 Recent Weight Gain (___ Lbs) [reported] 01/12/2010 WADE CARVER MD 783.1 Recent Weight Gain (___ Lbs) [reported] 01/12/2010 AZALEA JACOME MD 783.1 Recent Weight Gain (___ Lbs) [reported] 01/12/2010 AZALEA JACOME MD 783.1 Recent Weight Gain (___ Lbs) [reported] 01/12/2010 AZALEA JACOME MD 783.1 Recent Weight Gain (___ Lbs) [reported] 01/12/2010 WADE CARVER MD 783.1 Recent Weight Gain (___ Lbs) [reported] 01/12/2010 WADE CARVER MD 783.1 Recent Weight Gain (___ Lbs) [reported] 01/12/2010 JAMESON DO KIERAN K 783.1 Recent Weight Gain (___ Lbs) [reported] 01/12/2010 JAMESON DO, KIERAN K 783.1 Recent Weight Gain (___ Lbs) [reported] 01/12/2010 JAMESON DO KIERAN K 783.1 Recent Weight Gain (___ Lbs) [reported] 01/12/2010 JAMESON DO, KIERAN K 783.1 Recent Weight Gain (___ Lbs) [reported] 01/12/2010 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, HASEBE L 783.1 Recent Weight Gain (___ Lbs) [reported] 01/12/2010 CLAUDYL 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 ENGINEER, HASEEB L 783.1 Recent Weight Gain (___ Lbs) [reported] 01/12/2010 JOEY HICKMANWILLARD MurrellHASEEB L 783.1 Recent Weight Gain (___ Lbs) [reported] 01/12/2010 JOEY 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 ENGINEER, HASEEB L 783.1 Recent Weight Gain (___ Lbs) [reported] 01/12/2010 TRINO VACA KIERAN K 783.1 Recent Weight Gain (___ Lbs) [reported] 01/12/2010 JOEY HICKMANHandy HASEEB L 783.1 Recent Weight Gain (___ Lbs) [reported] 01/12/2010 CLAUDYBurt 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 ENGINEERWILLARD MurrellHASEEB L 783.1 Recent Weight Gain (___ Lbs) [reported] 01/12/2010 TRINO DO KIERAN K 783.1 Recent Weight Gain (___ Lbs) [reported] 01/12/2010 JAMESON DO KIERAN K 783.1 Recent Weight Gain (___ Lbs) [reported] 01/12/2010 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, HASEEB L 783.1 Recent Weight Gain (___ Lbs) [reported] 01/12/2010 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, HASEEB L 783.1 Recent Weight Gain (___ Lbs) [reported] 01/12/2010 HASEEB COOK APRN 783.1 Recent Weight Gain (___ Lbs) [reported] 01/12/2010 HASEEB COOK APRN 783.1 Recent Weight Gain (___ Lbs) [reported] 01/31/2010 Ot 305.1 01/31/2010 Ot 311 01/31/2010 Ot 496 01/31/2010 Ot 722.52 01/31/2010 Ot V57.1 02/03/2010 JAMESON DO, KIERAN K 724.5 BACKACHE UNSPECIFIED 02/03/2010 724.5 BACKACHE UNSPECIFIED 02/03/2010 JAMESON DO, KIERAN K 724.5 BACKACHE UNSPECIFIED 02/03/2010 JAMESON DO, KIERAN K 724.5 BACKACHE UNSPECIFIED 02/03/2010 JAMESON DO, KIERAN K 724.5 BACKACHE UNSPECIFIED 02/03/2010 JAMESON DO, KIERAN K 724.5 BACKACHE UNSPECIFIED 02/03/2010 JAMESON DO, KIERAN K 724.5 BACKACHE UNSPECIFIED 02/03/2010 724.5 BACKACHE UNSPECIFIED 02/03/2010 724.5 BACKACHE UNSPECIFIED 02/03/2010 JAMESON DO, KIERAN K 724.5 BACKACHE UNSPECIFIED 02/03/2010 724.5 BACKACHE UNSPECIFIED 02/03/2010 724.5 BACKACHE UNSPECIFIED 02/03/2010 724.5 BACKACHE UNSPECIFIED 02/03/2010 724.5 BACKACHE 02/03/2010 724.5 BACKACHE 02/03/2010 724.5 BACKACHE 02/03/2010 724.5 BACKACHE 02/03/2010 724.5 BACKACHE 02/03/2010 724.5 BACKACHE 02/03/2010 724.5 BACKACHE 02/03/2010 WEN VEGA, WADE Ramírez 724.5 BACKACHE 02/03/2010 WEN VEGA, WADE Ramírez 724.5 BACKACHE 02/03/2010 WEN VEGA, WADE Ramírez 724.5 BACKACHE 02/03/2010 NAA VEGA, AZALEA 724.5 BACKACHE 02/03/2010 NAA VEGA, AZALEA 724.5 BACKACHE 02/03/2010 NAA VEGA, AZALEA 724.5 BACKACHE 02/03/2010 WEN VEGA, WADE M 724.5 BACKACHE 02/03/2010 WEN VEGA, WADE M 724.5 BACKACHE 02/03/2010 JAMESON DO, KIERAN K 724.5 BACKACHE 02/03/2010 JAMESON DO, KIERAN K 724.5 BACKACHE 02/03/2010 JAMESON DO, KIERAN K 724.5 BACKACHE 02/03/2010 JAMESON DO, KIERAN K 724.5 BACKACHE 02/03/2010 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, HASEEB L 724.5 BACKACHE 02/03/2010 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, HASEEB L 724.5 BACKACHE 02/03/2010 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, HASEEB L 724.5 BACKACHE 02/03/2010 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, HASEEB L 724.5 BACKACHE 02/03/2010 JAMESON DO, KIERAN K 724.5 BACKACHE 02/03/2010 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, HASEEB L 724.5 BACKACHE 02/03/2010 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, HASEEB L 724.5 BACKACHE 02/03/2010 JAMESON DO, KIERAN K 724.5 BACKACHE 02/03/2010 JAMESON DO, KIERAN K 724.5 BACKACHE 02/03/2010 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, HASEEB L 724.5 BACKACHE 02/03/2010 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, HASEEB L 724.5 BACKACHE 02/03/2010 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, HASEEB L 724.5 BACKACHE 02/03/2010 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, HASEEB L 724.5 BACKACHE 02/16/2010 JAMESON DO, KIERAN K 780.79 Other Malaise And Fatigue 02/16/2010 780.79 Other Malaise And Fatigue 02/16/2010 JAMESON DO, KIERAN K 780.79 Other Malaise And Fatigue 02/16/2010 JAMESON DO, KIERAN K 780.79 Other Malaise And Fatigue 02/16/2010 JAMESON DO, KIERAN K 780.79 Other Malaise And Fatigue 02/16/2010 JAMESON DO, KIERAN K 780.79 Other Malaise And Fatigue 02/16/2010 JAMESON DO, KIERAN K 780.79 Other Malaise And Fatigue 02/16/2010 780.79 Other Malaise And Fatigue 02/16/2010 780.79 Other Malaise And Fatigue 02/16/2010 JAMESON DO, KIERAN K 780.79 Other Malaise And Fatigue 02/16/2010 780.79 Other Malaise And Fatigue 02/16/2010 780.79 Other Malaise And Fatigue 02/16/2010 780.79 Other Malaise And Fatigue 02/16/2010 780.79 Other Malaise And Fatigue 02/16/2010 780.79 Other Malaise And Fatigue 02/16/2010 780.79 Other Malaise And Fatigue 02/16/2010 780.79 Other Malaise And Fatigue 02/16/2010 780.79 Other Malaise And Fatigue 02/16/2010 780.79 Other Malaise And Fatigue 02/16/2010 780.79 Other Malaise And Fatigue 02/16/2010 WADE CARVER MD 780.79 Other Malaise And Fatigue 02/16/2010 WADE CARVER MD 780.79 Other Malaise And Fatigue 02/16/2010 WADE CARVER MD 780.79 Other Malaise And Fatigue 02/16/2010 AZALEA JACOME MD 780.79 Other Malaise And Fatigue 02/16/2010 AZALEA JACOME MD 780.79 Other Malaise And Fatigue 02/16/2010 AZALEA JACOME MD 780.79 Other Malaise And Fatigue 02/16/2010 WADE CARVER MD 780.79 Other Malaise And Fatigue 02/16/2010 WADE CARVER MD 780.79 Other Malaise And Fatigue 02/16/2010 JAMESON DO, KIERAN K 780.79 Other Malaise And Fatigue 02/16/2010 JAMESON DO, KIERAN K 780.79 Other Malaise And Fatigue 02/16/2010 JAMESON DO, KIERAN K 780.79 Other Malaise And Fatigue 02/16/2010 JAMESON DO, KIERAN K 780.79 Other Malaise And Fatigue 02/16/2010 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, HASEEB L 780.79 Other Malaise And Fatigue 02/16/2010 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, HASEEB L 780.79 Other Malaise And Fatigue 02/16/2010 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, HASEEB L 780.79 Other Malaise And Fatigue 02/16/2010 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, HASEEB L 780.79 Other Malaise And Fatigue 02/16/2010 JAMESON DO, KIERAN K 780.79 Other Malaise And Fatigue 02/16/2010 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, HASEEB L 780.79 Other Malaise And Fatigue 02/16/2010 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, HASEEB L 780.79 Other Malaise And Fatigue 02/16/2010 JAMESON DOKIERAN K 780.79 Other Malaise And Fatigue 02/16/2010 JAMESON DO, KIERAN K 780.79 Other Malaise And Fatigue 02/16/2010 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, HASEEB L 780.79 Other Malaise And Fatigue 02/16/2010 MADL LOGISTICS SYSTEM ENGINEER, HASEEB L 780.79 Other Malaise And Fatigue 02/16/2010 MADL LOGISTICS SYSTEM ENGINEER, HASEEB L 780.79 Other Malaise And Fatigue 02/16/2010 MADL LOGISTICS SYSTEM ENGINEER, HASEEB L 780.79 Other Malaise And Fatigue 04/01/2010 Ot 786.50 04/01/2010 Ot 786.52 04/06/2010 KIERAN JAMESON DO 733.6 Tietze's Disease 04/06/2010 733.6 Tietze's Disease 04/06/2010 KIERAN JAMESON DO 733.6 Tietze's Disease 04/06/2010 JAMESON DOKIERAN 733.6 Tietze's Disease 04/06/2010 KIERAN JAMESON DO 733.6 Tietze's Disease 04/06/2010 KIERAN JAMESON DO 733.6 Tietze's Disease 04/06/2010 JAMESON DOKIEARN 733.6 Tietze's Disease 04/06/2010 733.6 Tietze's Disease 04/06/2010 733.6 Tietze's Disease 04/06/2010 TRINO DOKIERAN 733.6 Tietze's Disease 04/06/2010 733.6 Tietze's Disease 04/06/2010 733.6 Tietze's Disease 04/06/2010 733.6 Tietze's Disease 04/06/2010 733.6 Tietze's Disease 04/06/2010 733.6 Tietze's Disease 04/06/2010 733.6 Tietze's Disease 04/06/2010 733.6 Tietze's Disease 04/06/2010 733.6 Tietze's Disease 04/06/2010 733.6 Tietze's Disease 04/06/2010 733.6 Tietze's Disease 04/06/2010 WADE CARVER MD 733.6 Tietze's Disease 04/06/2010 WADE CARVER MD 733.6 Tietze's Disease 04/06/2010 WADE CARVER MD 733.6 Tietze's Disease 04/06/2010 NAA VEGA, AZALEA 733.6 Tietze's Disease 04/06/2010 AZALEA JACOME MD 733.6 Tietze's Disease 04/06/2010 AZALEA JACOME MD 733.6 Tietze's Disease 04/06/2010 WADE CARVER MD 733.6 Tietze's Disease 04/06/2010 WADE CARVER MD 733.6 Tietze's Disease 04/06/2010 JAMESON DO, KIERAN K 733.6 Tietze's Disease 04/06/2010 JAMESON DO, KIERAN K 733.6 Tietze's Disease 04/06/2010 JAMESON DO, KIERAN K 733.6 Tietze's Disease 04/06/2010 JAMESON DO, KIERAN K 733.6 Tietze's Disease 04/06/2010 MADL LOGISTICS SYSTEM ENGINEER, HASEEB L 733.6 Tietze's Disease 04/06/2010 MADL LOGISTICS SYSTEM ENGINEER, HASEEB L 733.6 Tietze's Disease 04/06/2010 MADL LOGISTICS SYSTEM ENGINEER, HASEEB L 733.6 Tietze's Disease 04/06/2010 MADL LOGISTICS SYSTEM ENGINEER, HASEEB L 733.6 Tietze's Disease 04/06/2010 JAMESON DO, KIERAN K 733.6 Tietze's Disease 04/06/2010 MADL LOGISTICS SYSTEM ENGINEER, HASEEB L 733.6 Tietze's Disease 04/06/2010 MADL LOGISTICS SYSTEM ENGINEER, HASEEB L 733.6 Tietze's Disease 04/06/2010 JAMESON DO, KIERAN K 733.6 Tietze's Disease 04/06/2010 JAMESON DO, KIERAN K 733.6 Tietze's Disease 04/06/2010 MADL LOGISTICS SYSTEM ENGINEER, HASEEB L 733.6 Tietze's Disease 04/06/2010 MADL LOGISTICS SYSTEM ENGINEER, HASEEB L 733.6 Tietze's Disease 04/06/2010 MADL LOGISTICS SYSTEM ENGINEER, HASEEB L 733.6 Tietze's Disease 04/06/2010 MADL LOGISTICS SYSTEM ENGINEER, HASEEB L 733.6 Tietze's Disease 04/19/2010 TRINO VACA KIERAN K 465.9 Acute Upper Respiratory Infections Of Unspecified Site 04/19/2010 TRINO VACA KIERAN K 496 CHRONIC AIRWAY OBSTRUCTION NOT ELSEWHERE CLASSIFIED 04/19/2010 465.9 Acute Upper Respiratory Infections Of Unspecified Site 04/19/2010 496 CHRONIC AIRWAY OBSTRUCTION NOT ELSEWHERE CLASSIFIED 04/19/2010 TRINO VACA KIERAN K 465.9 Acute Upper Respiratory Infections Of Unspecified Site 04/19/2010 JAMESON DO KIERAN K 496 CHRONIC AIRWAY OBSTRUCTION NOT ELSEWHERE CLASSIFIED 04/19/2010 TRINO VACA KIERAN K 465.9 Acute Upper Respiratory Infections Of Unspecified Site 04/19/2010 JAMESON DO KIERAN K 496 CHRONIC AIRWAY OBSTRUCTION NOT ELSEWHERE CLASSIFIED 04/19/2010 TRINO VACA KIERAN K 465.9 Acute Upper Respiratory Infections Of Unspecified Site 04/19/2010 TRINO VACA KIERAN K 496 CHRONIC AIRWAY OBSTRUCTION NOT ELSEWHERE CLASSIFIED 04/19/2010 JAMESON DO KIERAN K 465.9 Acute Upper Respiratory Infections Of Unspecified Site 04/19/2010 JAMESON DO, KIERAN K 496 CHRONIC AIRWAY OBSTRUCTION NOT ELSEWHERE CLASSIFIED 04/19/2010 JAMESON DO KIERAN K 465.9 Acute Upper Respiratory Infections Of Unspecified Site 04/19/2010 JAMESON DO KIERAN K 496 CHRONIC AIRWAY OBSTRUCTION NOT ELSEWHERE CLASSIFIED 04/19/2010 465.9 Acute Upper Respiratory Infections Of Unspecified Site 04/19/2010 496 CHRONIC AIRWAY OBSTRUCTION NOT ELSEWHERE CLASSIFIED 04/19/2010 465.9 Acute Upper Respiratory Infections Of Unspecified Site 04/19/2010 496 CHRONIC AIRWAY OBSTRUCTION NOT ELSEWHERE CLASSIFIED 04/19/2010 JAMESON DO, KIERAN K 465.9 Acute Upper Respiratory Infections Of Unspecified Site 04/19/2010 JAMESON DO, KIERAN K 496 CHRONIC AIRWAY OBSTRUCTION NOT ELSEWHERE CLASSIFIED 04/19/2010 465.9 Acute Upper Respiratory Infections Of Unspecified Site 04/19/2010 496 CHRONIC AIRWAY OBSTRUCTION NOT ELSEWHERE CLASSIFIED 04/19/2010 465.9 Acute Upper Respiratory Infections Of Unspecified Site 04/19/2010 496 CHRONIC AIRWAY OBSTRUCTION NOT ELSEWHERE CLASSIFIED 04/19/2010 465.9 Acute Upper Respiratory Infections Of Unspecified Site 04/19/2010 496 CHRONIC AIRWAY OBSTRUCTION NOT ELSEWHERE CLASSIFIED 04/19/2010 465.9 Acute Upper Respiratory Infections Of Unspecified Site 04/19/2010 496 CHRONIC AIRWAY OBSTRUCTION NOT ELSEWHERE CLASSIFIED 04/19/2010 465.9 Acute Upper Respiratory Infections Of Unspecified Site 04/19/2010 496 CHRONIC AIRWAY OBSTRUCTION NOT ELSEWHERE CLASSIFIED 04/19/2010 465.9 Acute Upper Respiratory Infections Of Unspecified Site 04/19/2010 496 CHRONIC AIRWAY OBSTRUCTION NOT ELSEWHERE CLASSIFIED 04/19/2010 465.9 Acute Upper Respiratory Infections Of Unspecified Site 04/19/2010 496 CHRONIC AIRWAY OBSTRUCTION NOT ELSEWHERE CLASSIFIED 04/19/2010 465.9 Acute Upper Respiratory Infections Of Unspecified Site 04/19/2010 496 CHRONIC AIRWAY OBSTRUCTION NOT ELSEWHERE CLASSIFIED 04/19/2010 465.9 Acute Upper Respiratory Infections Of Unspecified Site 04/19/2010 496 CHRONIC AIRWAY OBSTRUCTION NOT ELSEWHERE CLASSIFIED 04/19/2010 465.9 Acute Upper Respiratory Infections Of Unspecified Site 04/19/2010 496 CHRONIC AIRWAY OBSTRUCTION NOT ELSEWHERE CLASSIFIED 04/19/2010 WADE CARVER MD 465.9 Acute Upper Respiratory Infections Of Unspecified Site 04/19/2010 WADE CARVER MD 496 CHRONIC AIRWAY OBSTRUCTION NOT ELSEWHERE CLASSIFIED 04/19/2010 WADE CARVER MD 465.9 Acute Upper Respiratory Infections Of Unspecified Site 04/19/2010 WADE CARVER MD 49Declan CHRONIC AIRWAY OBSTRUCTION NOT ELSEWHERE CLASSIFIED 04/19/2010 WADE CARVER MD 465.9 Acute Upper Respiratory Infections Of Unspecified Site 04/19/2010 WADE CARVER MD 496 CHRONIC AIRWAY OBSTRUCTION NOT ELSEWHERE CLASSIFIED 04/19/2010 AZALEA JACOME MD 465.9 Acute Upper Respiratory Infections Of Unspecified Site 04/19/2010 HUERTER MD, AZALEA 496 CHRONIC AIRWAY OBSTRUCTION NOT ELSEWHERE CLASSIFIED 04/19/2010 AZALEA JACOME MD 465.9 Acute Upper Respiratory Infections Of Unspecified Site 04/19/2010 AZALEA JACOME MD 49Declan CHRONIC AIRWAY OBSTRUCTION NOT ELSEWHERE CLASSIFIED 04/19/2010 AZALEA JACOME MD 465.9 Acute Upper Respiratory Infections Of Unspecified Site 04/19/2010 AZALEA JACOME MD 49Declan CHRONIC AIRWAY OBSTRUCTION NOT ELSEWHERE CLASSIFIED 04/19/2010 WADE CARVER MD 465.9 Acute Upper Respiratory Infections Of Unspecified Site 04/19/2010 WADE CARVER MD 496 CHRONIC AIRWAY OBSTRUCTION NOT ELSEWHERE CLASSIFIED 04/19/2010 WADE CARVER MD 465.9 Acute Upper Respiratory Infections Of Unspecified Site 04/19/2010 WADE CARVER MD 496 CHRONIC AIRWAY OBSTRUCTION NOT ELSEWHERE CLASSIFIED 04/19/2010 JAMESON DO, KIERAN K 465.9 Acute Upper Respiratory Infections Of Unspecified Site 04/19/2010 JAMESON DO, KIERAN K 496 CHRONIC AIRWAY OBSTRUCTION NOT ELSEWHERE CLASSIFIED 04/19/2010 JAMESON DO, KIERAN K 465.9 Acute Upper Respiratory Infections Of Unspecified Site 04/19/2010 JAMESON DO, KIERAN K 496 CHRONIC AIRWAY OBSTRUCTION NOT ELSEWHERE CLASSIFIED 04/19/2010 JAMESON DO, KIERAN K 465.9 Acute Upper Respiratory Infections Of Unspecified Site 04/19/2010 JAMESON DO, KIERAN K 496 CHRONIC AIRWAY OBSTRUCTION NOT ELSEWHERE CLASSIFIED 04/19/2010 JAMESON DO, KIERAN K 465.9 Acute Upper Respiratory Infections Of Unspecified Site 04/19/2010 JAMESON DO, KIERAN K 496 CHRONIC AIRWAY OBSTRUCTION NOT ELSEWHERE CLASSIFIED 04/19/2010 MADL LOGISTICS SYSTEM ENGINEER, HASEEB L 465.9 Acute Upper Respiratory Infections Of Unspecified Site 04/19/2010 MADL LOGISTICS SYSTEM ENGINEER, HASEEB L 496 CHRONIC AIRWAY OBSTRUCTION NOT ELSEWHERE CLASSIFIED 04/19/2010 MADL LOGISTICS SYSTEM ENGINEER, HASEEB L 465.9 Acute Upper Respiratory Infections Of Unspecified Site 04/19/2010 MADL LOGISTICS SYSTEM ENGINEER, HASEEB L 496 CHRONIC AIRWAY OBSTRUCTION NOT ELSEWHERE CLASSIFIED 04/19/2010 MADL LOGISTICS SYSTEM ENGINEER, HASEEB L 465.9 Acute Upper Respiratory Infections Of Unspecified Site 04/19/2010 MADL LOGISTICS SYSTEM ENGINEER, HASEEB L 496 CHRONIC AIRWAY OBSTRUCTION NOT ELSEWHERE CLASSIFIED 04/19/2010 MADL LOGISTICS SYSTEM ENGINEER, HASEEB L 465.9 Acute Upper Respiratory Infections Of Unspecified Site 04/19/2010 MADL LOGISTICS SYSTEM ENGINEER, HASEEB L 496 CHRONIC AIRWAY OBSTRUCTION NOT ELSEWHERE CLASSIFIED 04/19/2010 JAMESON DO, KIERAN K 465.9 Acute Upper Respiratory Infections Of Unspecified Site 04/19/2010 JAMESON DO, KIERAN K 496 CHRONIC AIRWAY OBSTRUCTION NOT ELSEWHERE CLASSIFIED 04/19/2010 [employer] ENGINEER, HASEEB L 465.9 Acute Upper Respiratory Infections Of Unspecified Site 04/19/2010 [employer] SYSTEM ENGINEER, HASEEB L 496 CHRONIC AIRWAY OBSTRUCTION NOT ELSEWHERE CLASSIFIED 04/19/2010 [employer] SYSTEM ENGINEER, HASEEB L 465.9 Acute Upper Respiratory Infections Of Unspecified Site 04/19/2010 [employer] SYSTEM ENGINEER, HASEEB L 496 CHRONIC AIRWAY OBSTRUCTION NOT ELSEWHERE CLASSIFIED 04/19/2010 JAMESON DO, KIERAN K 465.9 Acute Upper Respiratory Infections Of Unspecified Site 04/19/2010 JAMESON DO, KIERAN K 496 CHRONIC AIRWAY OBSTRUCTION NOT ELSEWHERE CLASSIFIED 04/19/2010 JAMESON DO, KIERAN K 465.9 Acute Upper Respiratory Infections Of Unspecified Site 04/19/2010 JAMESON DO, KIERAN K 496 CHRONIC AIRWAY OBSTRUCTION NOT ELSEWHERE CLASSIFIED 04/19/2010 [employer] ENGINEER, HASEEB L 465.9 Acute Upper Respiratory Infections Of Unspecified Site 04/19/2010 [employer] ENGINEER, HASEEB L 496 CHRONIC AIRWAY OBSTRUCTION NOT ELSEWHERE CLASSIFIED 04/19/2010 [employer] SYSTEM ENGINEER, HASEEB L 465.9 Acute Upper Respiratory Infections Of Unspecified Site 04/19/2010 [employer] SYSTEM ENGINEER, HASEEB L 496 CHRONIC AIRWAY OBSTRUCTION NOT ELSEWHERE CLASSIFIED 04/19/2010 [employer] SYSTEM ENGINEER, HASEEB L 465.9 Acute Upper Respiratory Infections Of Unspecified Site 04/19/2010 [employer] SYSTEM ENGINEER, HASEEB L 496 CHRONIC AIRWAY OBSTRUCTION NOT ELSEWHERE CLASSIFIED 04/19/2010 [employer] SYSTEM ENGINEER, HASEEB L 465.9 Acute Upper Respiratory Infections Of Unspecified Site 04/19/2010 M[employer]IST[employer] SYSTEM ENGINEER, HASEEB L 496 CHRONIC AIRWAY OBSTRUCTION NOT ELSEWHERE CLASSIFIED 05/02/2010 JAMESON DO, KIERAN K 466.0 Bronchitis, Acute 05/02/2010 466.0 Bronchitis, Acute 05/02/2010 JAMESON DO, KIERAN K 466.0 Bronchitis, Acute 05/02/2010 JAMESON DO, KIERAN K 466.0 Bronchitis, Acute 05/02/2010 JAMESON DO, KIERAN K 466.0 Bronchitis, Acute 05/02/2010 JAMESON DO, KIERAN K 466.0 Bronchitis, Acute 05/02/2010 JAMESON DO, KIERAN K 466.0 Bronchitis, Acute 05/02/2010 466.0 Bronchitis, Acute 05/02/2010 466.0 Bronchitis, Acute 05/02/2010 JAMESON DO, KIERAN K 466.0 Bronchitis, Acute 05/02/2010 466.0 Bronchitis, Acute 05/02/2010 466.0 Bronchitis, Acute 05/02/2010 466.0 Bronchitis, Acute 05/02/2010 466.0 Bronchitis, Acute 05/02/2010 466.0 Bronchitis, Acute 05/02/2010 466.0 Bronchitis, Acute 05/02/2010 466.0 Bronchitis, Acute 05/02/2010 466.0 Bronchitis, Acute 05/02/2010 466.0 Bronchitis, Acute 05/02/2010 466.0 Bronchitis, Acute 05/02/2010 WEN VEGA, WADE M 466.0 Bronchitis, Acute 05/02/2010 WEN VEGA, WADE M 466.0 Bronchitis, Acute 05/02/2010 WEN VEGA, WADE M 466.0 Bronchitis, Acute 05/02/2010 NAA VEGA, AZALEA 466.0 Bronchitis, Acute 05/02/2010 NAA VEGA, AZALEA 466.0 Bronchitis, Acute 05/02/2010 NAA VEGA, AZALEA 466.0 Bronchitis, Acute 05/02/2010 WEN VEGA, WADE M 466.0 Bronchitis, Acute 05/02/2010 WEN VEGA, WADE M 466.0 Bronchitis, Acute 05/02/2010 JAMESON DO, KIERAN K 466.0 Bronchitis, Acute 05/02/2010 JAMESON DO, KIERAN K 466.0 Bronchitis, Acute 05/02/2010 JAMESON DO, KIERAN K 466.0 Bronchitis, Acute 05/02/2010 JAMESON DO, KIERAN K 466.0 Bronchitis, Acute 05/02/2010 [employer] LOGIST[employer] ENGINEER, HASEEB L 466.0 Bronchitis, Acute 05/02/2010 [employer]AD[employer] LOGISTICS SYSTEM ENGINEER, HASEEB L 466.0 Bronchitis, Acute 05/02/2010 [employer]AD[employer] LOGIST[employer] SYSTEM ENGINEER, HASEEB L 466.0 Bronchitis, Acute 05/02/2010 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 ENGINEER, 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 L 466.0 Bronchitis, Acute 05/02/2010 JAMESON DO, KIERAN K 466.0 Bronchitis, Acute 05/02/2010 MAD[employer] LOGISTICS SYSTEM ENGINEER, HASEEB L 466.0 Bronchitis, Acute 05/02/2010 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 SYSTEM ENGINEER, 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 L 466.0 Bronchitis, Acute 05/02/2010 JAMESON DO, KIERAN K 466.0 Bronchitis, Acute 05/02/2010 JAMESON DO, KIERAN K 466.0 Bronchitis, Acute 05/02/2010 [employer]IST[employer] ENGINEER, HASEEB L 466.0 Bronchitis, Acute 05/02/2010 MAD[employer] LOGISTICS SYSTEM ENGINEER, HASEEB L 466.0 Bronchitis, Acute 05/02/2010 M[employer] LOGISTICS SYSTEM ENGINEER, HASEEB L 466.0 Bronchitis, Acute 05/02/2010 [employer] LOGISTICS SYSTEM ENGINEER, HASEEB L 466.0 Bronchitis, Acute 05/20/2010 JAMESON DO, KIERAN K 786.2 Cough 05/20/2010 786.2 Cough 05/20/2010 JAMESON DO, KIERAN K 786.2 Cough 05/20/2010 JAMESON DO, KIERAN K 786.2 Cough 05/20/2010 JAMESON DO, KIERAN K 786.2 Cough 05/20/2010 JAMESON DO, KIERAN K 786.2 Cough 05/20/2010 JAMESON DO, KIERAN K 786.2 Cough 05/20/2010 786.2 Cough 05/20/2010 786.2 Cough 05/20/2010 JAMESON DO, KIERAN K 786.2 Cough 05/20/2010 786.2 Cough 05/20/2010 786.2 Cough 05/20/2010 786.2 Cough 05/20/2010 786.2 Cough 05/20/2010 786.2 Cough 05/20/2010 786.2 Cough 05/20/2010 786.2 Cough 05/20/2010 786.2 Cough 05/20/2010 786.2 Cough 05/20/2010 786.2 Cough 05/20/2010 WEN VEGA, WADE Ramírez 786.2 Cough 05/20/2010 WEN VEGA, WADE Ramírez 786.2 Cough 05/20/2010 WEN VEGA, WADE Ramírez 786.2 Cough 05/20/2010 NAA VEGA, AZALEA 786.2 Cough 05/20/2010 NAA VEGA, AZALEA 786.2 Cough 05/20/2010 NAA VEGA, AZALEA 786.2 Cough 05/20/2010 WEN VEGA, WADE Ramírez 786.2 Cough 05/20/2010 WEN VEGA, WADE Ramírez 786.2 Cough 05/20/2010 JAMESON DO, KIERAN K 786.2 Cough 05/20/2010 JAMESON DO, KIERAN K 786.2 Cough 05/20/2010 JAMESON DO, KIERAN K 786.2 Cough 05/20/2010 JAMESON DO, KIERAN K 786.2 Cough 05/20/2010 [employer] ENGINEER, HASEEB L 786.2 Cough 05/20/2010 MAD[employer] LOGISTICS SYSTEM ENGINEER, HASEEB L 786.2 Cough 05/20/2010 M[employer] LOG[employer] SYSTEM ENGINEER, HASEEB L 786.2 Cough 05/20/2010 M[employer] LOGISTICS SYSTEM ENGINEER, HASEEB L 786.2 Cough 05/20/2010 JAMESON DO, KIERAN K 786.2 Cough 05/20/2010 MAD[employer] LOGISTICS SYSTEM ENGINEER, HASEEB L 786.2 Cough 05/20/2010 MAD[employer] LOGISTICS SYSTEM ENGINEER, HASEEB L 786.2 Cough 05/20/2010 JAMESON DO, KIERAN K 786.2 Cough 05/20/2010 JAMESON DO, KIERAN K 786.2 Cough 05/20/2010 [employer]ISTICS SYSTEM ENGINEER, HASEEB L 786.2 Cough 05/20/2010 MAD[employer] LOGISTICS SYSTEM ENGINEER, HASEEB L 786.2 Cough 05/20/2010 M[employer] LOGISTICS SYSTEM ENGINEER, HASEEB L 786.2 Cough 05/20/2010 M[employer] LOGISTICS SYSTEM ENGINEER, HASEEB L 786.2 Cough 05/31/2010 JAMESON DO, KIERAN K 401.1 HYPERTENSION, BENIGN ESSENTIAL 05/31/2010 401.1 HYPERTENSION, BENIGN ESSENTIAL 05/31/2010 JAMESON DO, KIERAN K 401.1 HYPERTENSION, BENIGN ESSENTIAL 05/31/2010 JMAESON DO, KIERAN K 401.1 HYPERTENSION, BENIGN ESSENTIAL 05/31/2010 JAMESON DO, KIERAN K 401.1 HYPERTENSION, BENIGN ESSENTIAL 05/31/2010 JAMESON DO, KIERAN K 401.1 HYPERTENSION, BENIGN ESSENTIAL 05/31/2010 JAMESON DO, KIERAN K 401.1 HYPERTENSION, BENIGN ESSENTIAL 05/31/2010 401.1 HYPERTENSION, BENIGN ESSENTIAL 05/31/2010 401.1 HYPERTENSION, BENIGN ESSENTIAL 05/31/2010 JAMESON DO, KIERAN K 401.1 HYPERTENSION, BENIGN ESSENTIAL 05/31/2010 401.1 HYPERTENSION, BENIGN ESSENTIAL 05/31/2010 401.1 HYPERTENSION, BENIGN ESSENTIAL 05/31/2010 401.1 HYPERTENSION, BENIGN ESSENTIAL 05/31/2010 401.1 HYPERTENSION, BENIGN ESSENTIAL 05/31/2010 401.1 HYPERTENSION, BENIGN ESSENTIAL 05/31/2010 401.1 HYPERTENSION, BENIGN ESSENTIAL 05/31/2010 401.1 HYPERTENSION, BENIGN ESSENTIAL 05/31/2010 401.1 HYPERTENSION, BENIGN ESSENTIAL 05/31/2010 401.1 HYPERTENSION, BENIGN ESSENTIAL 05/31/2010 401.1 HYPERTENSION, BENIGN ESSENTIAL 05/31/2010 WEN VEGA, WADE Rmaírez 401.1 HYPERTENSION, BENIGN ESSENTIAL 05/31/2010 WEN VEGA, WADE Ramírez 401.1 HYPERTENSION, BENIGN ESSENTIAL 05/31/2010 WEN VEGA, WADE Ramírez 401.1 HYPERTENSION, BENIGN ESSENTIAL 05/31/2010 AZALEA JACOME MD 401.1 HYPERTENSION, BENIGN ESSENTIAL 05/31/2010 AZALEA JACOME MD 401.1 HYPERTENSION, BENIGN ESSENTIAL 05/31/2010 NAA VEGA, AZALEA 401.1 HYPERTENSION, BENIGN ESSENTIAL 05/31/2010 WADE CARVER MD 401.1 HYPERTENSION, BENIGN ESSENTIAL 05/31/2010 WEN VEGA, WADE M 401.1 HYPERTENSION, BENIGN ESSENTIAL 05/31/2010 JAMESON DO, KIERAN K 401.1 HYPERTENSION, BENIGN ESSENTIAL 05/31/2010 JAMESON DO, KIERAN K 401.1 HYPERTENSION, BENIGN ESSENTIAL 05/31/2010 JAMESON DO, KIERAN K 401.1 HYPERTENSION, BENIGN ESSENTIAL 05/31/2010 JAMESON DO, KIERAN K 401.1 HYPERTENSION, BENIGN ESSENTIAL 05/31/2010 M[employer] LOG[employer] ENGINEER, HASEEB L 401.1 HYPERTENSION, BENIGN ESSENTIAL 05/31/2010 M[employer] LOGIST[employer] SYSTEM ENGINEER, HASEEB L 401.1 HYPERTENSION, BENIGN ESSENTIAL 05/31/2010 M[employer] LOGIST[employer] SYSTEM ENGINEER, HASEEB L 401.1 HYPERTENSION, BENIGN ESSENTIAL 05/31/2010 MAD[employer] LOGISTICS SYSTEM ENGINEER, HASEEB L 401.1 HYPERTENSION, BENIGN ESSENTIAL 05/31/2010 JAMESON DO, KIERAN K 401.1 HYPERTENSION, BENIGN ESSENTIAL 05/31/2010 MADL LOGISTICS SYSTEM ENGINEER, HASEEB L 401.1 HYPERTENSION, BENIGN ESSENTIAL 05/31/2010 MAD[employer] LOGISTICS SYSTEM ENGINEER, HASEEB L 401.1 HYPERTENSION, BENIGN ESSENTIAL 05/31/2010 JAMESON DO, KIERAN K 401.1 HYPERTENSION, BENIGN ESSENTIAL 05/31/2010 JAMESON DO, KIERAN K 401.1 HYPERTENSION, BENIGN ESSENTIAL 05/31/2010 MADL LOGISTICS SYSTEM ENGINEER, HASEEB L 401.1 HYPERTENSION, BENIGN ESSENTIAL 05/31/2010 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 LOGISTICS SYSTEM ENGINEER, HASEEB L 401.1 HYPERTENSION, BENIGN ESSENTIAL 05/31/2010 MADL LOGISTICS SYSTEM ENGINEER, HASEEB L 401.1 HYPERTENSION, BENIGN ESSENTIAL 05/31/2010 MAD[employer] LOGIST[employer] SYSTEM ENGINEER, HASEEB L 401.1 HYPERTENSION, BENIGN ESSENTIAL 06/07/2010 JAMESON DO, KIERAN K 380.4 Impacted Cerumen 06/07/2010 380.4 Impacted Cerumen 06/07/2010 JAMESON DO, KIERAN K 380.4 Impacted Cerumen 06/07/2010 JAMESON DO, KIERAN K 380.4 Impacted Cerumen 06/07/2010 JAMESON DO, KIERAN K 380.4 Impacted Cerumen 06/07/2010 JAMESON DO, KIERAN K 380.4 Impacted Cerumen 06/07/2010 JAMESON DO, KIERAN K 380.4 Impacted Cerumen 06/07/2010 380.4 Impacted Cerumen 06/07/2010 380.4 Impacted Cerumen 06/07/2010 JAMESON DO, KIERAN K 380.4 Impacted Cerumen 06/07/2010 380.4 Impacted Cerumen 06/07/2010 380.4 Impacted Cerumen 06/07/2010 380.4 Impacted Cerumen 06/07/2010 380.4 Impacted Cerumen 06/07/2010 380.4 Impacted Cerumen 06/07/2010 380.4 Impacted Cerumen 06/07/2010 380.4 Impacted Cerumen 06/07/2010 380.4 Impacted Cerumen 06/07/2010 380.4 Impacted Cerumen 06/07/2010 380.4 Impacted Cerumen 06/07/2010 WEN VEGA, WADE Ramírez 380.4 Impacted Cerumen 06/07/2010 WEN VEGA, WADE Rmaírez 380.4 Impacted Cerumen 06/07/2010 WEN VEGA, WADE Ramírez 380.4 Impacted Cerumen 06/07/2010 AZALEA JACOME MD 380.4 Impacted Cerumen 06/07/2010 AZALEA JACOME MD 380.4 Impacted Cerumen 06/07/2010 NAA VEGA, AZALEA 380.4 Impacted Cerumen 06/07/2010 WEN VEGA, WADE Ramírez 380.4 Impacted Cerumen 06/07/2010 WEN VEGA, WADE Ramírez 380.4 Impacted Cerumen 06/07/2010 JAMESON DO, KIERAN K 380.4 Impacted Cerumen 06/07/2010 JAMESON DO, KIERAN K 380.4 Impacted Cerumen 06/07/2010 JAMESON DO, KIERAN K 380.4 Impacted Cerumen 06/07/2010 JAMESON DO, KIERAN K 380.4 Impacted Cerumen 06/07/2010 M[employer] ENGINEER, HASEEB L 380.4 Impacted Cerumen 06/07/2010 MAD[employer] LOGISTICS SYSTEM ENGINEER, HASEEB L 380.4 Impacted Cerumen 06/07/2010 MAD[employer] LOGISTICS SYSTEM ENGINEER, HASEEB L 380.4 Impacted Cerumen 06/07/2010 MADL LOGISTICS SYSTEM ENGINEER, HASEEB L 380.4 Impacted Cerumen 06/07/2010 JAMESON DO, KIERAN K 380.4 Impacted Cerumen 06/07/2010 MADL LOGISTICS SYSTEM ENGINEER, HASEEB L 380.4 Impacted Cerumen 06/07/2010 MADL LOGISTICS SYSTEM ENGINEER, HASEEB L 380.4 Impacted Cerumen 06/07/2010 JAMESON DO, KIERAN K 380.4 Impacted Cerumen 06/07/2010 JAMESON DO, KIERAN K 380.4 Impacted Cerumen 06/07/2010 MADL LOGISTICS SYSTEM ENGINEER, HASEEB L 380.4 Impacted Cerumen 06/07/2010 MADL LOGISTICS SYSTEM ENGINEER, HASEEB L 380.4 Impacted Cerumen 06/07/2010 MADL LOGISTICS SYSTEM ENGINEER, HASEEB L 380.4 Impacted Cerumen 06/07/2010 MADL LOGISTICS SYSTEM ENGINEER, HASEEB L 380.4 Impacted Cerumen 06/16/2010 JAMESON DO, KIERAN K NODX No Diagnosis 06/16/2010 NODX No Diagnosis 06/16/2010 JAMESON DO, KIERAN K NODX No Diagnosis 06/16/2010 JAMESON DO, KIERAN K NODX No Diagnosis 06/16/2010 JAMESON DO, KIERAN K NODX No Diagnosis 06/16/2010 JAMESON DO, KIERAN K NODX No Diagnosis 06/16/2010 JAMESON DO, KIERAN K NODX No Diagnosis 06/16/2010 NODX No Diagnosis 06/16/2010 NODX No Diagnosis 06/16/2010 TRINO VACA KIERAN K NODX No Diagnosis 06/16/2010 NODX No Diagnosis 06/16/2010 NODX No Diagnosis 06/16/2010 NODX No Diagnosis 06/16/2010 NODX No Diagnosis 06/16/2010 NODX No Diagnosis 06/16/2010 NODX No Diagnosis 06/16/2010 NODX No Diagnosis 06/16/2010 NODX No Diagnosis 06/16/2010 NODX No Diagnosis 06/16/2010 NODX No Diagnosis 06/16/2010 WEN VEGA, WADE Ramírez NODX No Diagnosis 06/16/2010 WEN VEGA, WADE Ramírez NODX No Diagnosis 06/16/2010 WEN VEGA, WADE Ramírez NODX No Diagnosis 06/16/2010 NAA VEGA, AZALEA NODX No Diagnosis 06/16/2010 NAA VEGA, AZALEA NODX No Diagnosis 06/16/2010 NAA VEGA, AZALEA NODX No Diagnosis 06/16/2010 WEN VEGA, WADE Ramírez NODX No Diagnosis 06/16/2010 WEN VEGA, WADE Ramírez NODX No Diagnosis 06/16/2010 JAMESON DO KIERAN K NODX No Diagnosis 06/16/2010 TRINO VACA KIERAN K NODX No Diagnosis 06/16/2010 TRINO VACA KIERAN K NODX No Diagnosis 06/16/2010 JAMESON DO KIERAN K NODX No Diagnosis 06/16/2010 M[employer]L LOG[employer] SYSTEM ENGINEER, HASEEB L NODX No Diagnosis 06/16/2010 MADL LOGISTICS SYSTEM ENGINEER, HASEEB L NODX No Diagnosis 06/16/2010 MADL LOGISTICS SYSTEM ENGINEER, HASEEB L NODX No Diagnosis 06/16/2010 MADL LOGISTICS SYSTEM ENGINEER, HASEEB L NODX No Diagnosis 06/16/2010 JAMESON DO KIERAN K NODX No Diagnosis 06/16/2010 MADL LOGISTICS SYSTEM ENGINEER, HASEEB L NODX No Diagnosis 06/16/2010 MADL LOGISTICS SYSTEM ENGINEER, HASEEB L NODX No Diagnosis 06/16/2010 JAMESON DO KIERAN K NODX No Diagnosis 06/16/2010 JAMESON DO KIERAN K NODX No Diagnosis 06/16/2010 MADL LOGISTICS SYSTEM ENGINEER, HASEEB L NODX No Diagnosis 06/16/2010 MADL LOGIST[employer] SYSTEM ENGINEER, HASEEB L NODX No Diagnosis 06/16/2010 MADL LOGIST[employer] SYSTEM ENGINEER, HASEEB L NODX No Diagnosis 06/16/2010 MADL LOGISTICS SYSTEM ENGINEER, HASEEB L NODX No Diagnosis 06/20/2010 Ot 717.7 10/27/2010 JAMESON DO, KIERAN K 780.54 HYPERSOMNIA UNSPECIFIED 10/27/2010 JAMESON DO, KIERAN K 784.0 Headache 10/27/2010 780.54 HYPERSOMNIA UNSPECIFIED 10/27/2010 784.0 Headache 10/27/2010 JAMESON DO, KIERAN K 780.54 HYPERSOMNIA UNSPECIFIED 10/27/2010 JAMESON DO, KIERAN K 784.0 Headache 10/27/2010 JAMESON DO, KIERAN K 780.54 HYPERSOMNIA UNSPECIFIED 10/27/2010 JAMESON DO, KIERAN K 784.0 Headache 10/27/2010 JAMESON DO, KIERAN K 780.54 HYPERSOMNIA UNSPECIFIED 10/27/2010 JAMESON DO, KIERAN K 784.0 Headache 10/27/2010 JAMESON DO, KIERAN K 780.54 HYPERSOMNIA UNSPECIFIED 10/27/2010 JAMESON DO, KIERAN K 784.0 Headache 10/27/2010 JAMESON DO, KIERAN K 780.54 HYPERSOMNIA UNSPECIFIED 10/27/2010 JAMESON DO, KIERAN K 784.0 Headache 10/27/2010 780.54 HYPERSOMNIA UNSPECIFIED 10/27/2010 784.0 Headache 10/27/2010 780.54 HYPERSOMNIA UNSPECIFIED 10/27/2010 784.0 Headache 10/27/2010 JAMESON DO, KIERAN K 780.54 HYPERSOMNIA UNSPECIFIED 10/27/2010 JAMESON DO, KIERAN K 784.0 Headache 10/27/2010 780.54 HYPERSOMNIA UNSPECIFIED 10/27/2010 784.0 Headache 10/27/2010 780.54 HYPERSOMNIA UNSPECIFIED 10/27/2010 784.0 Headache 10/27/2010 780.54 HYPERSOMNIA UNSPECIFIED 10/27/2010 784.0 Headache 10/27/2010 780.54 HYPERSOMNIA UNSPECIFIED 10/27/2010 784.0 Headache 10/27/2010 780.54 HYPERSOMNIA UNSPECIFIED 10/27/2010 784.0 Headache 10/27/2010 780.54 HYPERSOMNIA UNSPECIFIED 10/27/2010 784.0 Headache 10/27/2010 780.54 HYPERSOMNIA UNSPECIFIED 10/27/2010 784.0 Headache 10/27/2010 780.54 HYPERSOMNIA UNSPECIFIED 10/27/2010 784.0 Headache 10/27/2010 780.54 HYPERSOMNIA UNSPECIFIED 10/27/2010 784.0 Headache 10/27/2010 780.54 HYPERSOMNIA UNSPECIFIED 10/27/2010 784.0 Headache 10/27/2010 WADE CARVER MD 780.54 HYPERSOMNIA UNSPECIFIED 10/27/2010 WADE CARVER MD 784.0 Headache 10/27/2010 WADE CARVER MD 780.54 HYPERSOMNIA UNSPECIFIED 10/27/2010 WADE CARVER MD 784.0 Headache 10/27/2010 WADE CARVER MD 780.54 HYPERSOMNIA UNSPECIFIED 10/27/2010 WADE CARVER MD 784.0 Headache 10/27/2010 AZALEA JACOME MD 780.54 HYPERSOMNIA UNSPECIFIED 10/27/2010 AZALEA JACOME MD 784.0 Headache 10/27/2010 AZALEA JACOME MD 780.54 HYPERSOMNIA UNSPECIFIED 10/27/2010 AZALEA JACOME MD 784.0 Headache 10/27/2010 AZALEA JACOME MD 780.54 HYPERSOMNIA UNSPECIFIED 10/27/2010 AZALEA JACOME MD 784.0 Headache 10/27/2010 WADE CARVER MD 780.54 HYPERSOMNIA UNSPECIFIED 10/27/2010 WADE CARVER MD 784.0 Headache 10/27/2010 WADE CARVER MD 780.54 HYPERSOMNIA UNSPECIFIED 10/27/2010 WADE CARVER MD 784.0 Headache 10/27/2010 JAMESON DO, KIERAN K 780.54 HYPERSOMNIA UNSPECIFIED 10/27/2010 JAMESON DO, KIERAN K 784.0 Headache 10/27/2010 JAMESON DO, KIERAN K 780.54 HYPERSOMNIA UNSPECIFIED 10/27/2010 JAMESON DO, KIERAN K 784.0 Headache 10/27/2010 JAMESON DO, KIERAN K 780.54 HYPERSOMNIA UNSPECIFIED 10/27/2010 JAMESON DO, KIERAN K 784.0 Headache 10/27/2010 JAMESON DO, KIERAN K 780.54 HYPERSOMNIA UNSPECIFIED 10/27/2010 JAMESON DO, KIERAN K 784.0 Headache 10/27/2010 MADL LOGISTICS SYSTEM ENGINEER, HASEEB L 780.54 HYPERSOMNIA UNSPECIFIED 10/27/2010 MAD[employer] LOGISTICS SYSTEM ENGINEER, HASEEB L 784.0 Headache 10/27/2010 MAD[employer] LOGISTICS SYSTEM ENGINEER, HASEEB L 780.54 HYPERSOMNIA UNSPECIFIED 10/27/2010 MADL LOGISTICS SYSTEM ENGINEER, HASEEB L 784.0 Headache 10/27/2010 MADL LOGISTICS SYSTEM ENGINEER, HASEEB L 780.54 HYPERSOMNIA UNSPECIFIED 10/27/2010 MADL LOGISTICS SYSTEM ENGINEER, HASEEB L 784.0 Headache 10/27/2010 MADL LOGISTICS SYSTEM ENGINEER, HASEEB L 780.54 HYPERSOMNIA UNSPECIFIED 10/27/2010 MADL LOGISTICS SYSTEM ENGINEER, HASEEB L 784.0 Headache 10/27/2010 JAMESON DO, KIERAN K 780.54 HYPERSOMNIA UNSPECIFIED 10/27/2010 JAMESON DO, KIERAN K 784.0 Headache 10/27/2010 MAD[employer] LOGISTICS SYSTEM ENGINEER, HASEEB L 780.54 HYPERSOMNIA UNSPECIFIED 10/27/2010 MADL LOGISTICS SYSTEM ENGINEER, HASEEB L 784.0 Headache 10/27/2010 MADL LOGIST[employer] SYSTEM ENGINEER, HASEEB L 780.54 HYPERSOMNIA UNSPECIFIED 10/27/2010 MADL LOGISTICS SYSTEM ENGINEER, HASEEB L 784.0 Headache 10/27/2010 JAMESON DO, KIERAN K 780.54 HYPERSOMNIA UNSPECIFIED 10/27/2010 JAMESON DO, KIERAN K 784.0 Headache 10/27/2010 JAMESON DO KIERAN K 780.54 HYPERSOMNIA UNSPECIFIED 10/27/2010 JAMESON DO, KIERAN K 784.0 Headache 10/27/2010 MADL LOGISTICS SYSTEM ENGINEER, HASEEB L 780.54 HYPERSOMNIA UNSPECIFIED 10/27/2010 MADL LOGISTICS SYSTEM ENGINEER, HASEEB L 784.0 Headache 10/27/2010 MADL LOGISTICS SYSTEM ENGINEER, HASEEB L 780.54 HYPERSOMNIA UNSPECIFIED 10/27/2010 MADL LOGISTICS SYSTEM ENGINEER, HASEEB L 784.0 Headache 10/27/2010 MAD[employer] LOGISTICS SYSTEM ENGINEER, HASEEB L 780.54 HYPERSOMNIA UNSPECIFIED 10/27/2010 MADL LOGISTICS SYSTEM ENGINEER, HASEEB L 784.0 Headache 10/27/2010 HASEEB COOK APRN 780.54 HYPERSOMNIA UNSPECIFIED 10/27/2010 HASEEB COOK APRN 784.0 Headache 02/26/2011 Ot 944.00 02/26/2011 Ot E000.8 02/26/2011 Ot E849.0 02/26/2011 Ot E924.1 06/09/2011 Ot 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 07/13/2011 KIERAN JAMESON DO 726.5 ENTHESOPATHY OF HIP REGION 07/13/2011 726.5 ENTHESOPATHY OF HIP REGION 07/13/2011 KIERAN JAMESON DO 726.5 ENTHESOPATHY OF HIP REGION 07/13/2011 KIERAN JAMESON DO 726.5 ENTHESOPATHY OF HIP REGION 07/13/2011 KIERAN JAMESON DO 726.5 ENTHESOPATHY OF HIP REGION 07/13/2011 KIERAN JAMESON DO 726.5 ENTHESOPATHY OF HIP REGION 07/13/2011 KIERAN JAMESON DO 726.5 ENTHESOPATHY OF HIP REGION 07/13/2011 726.5 ENTHESOPATHY OF HIP REGION 07/13/2011 726.5 ENTHESOPATHY OF HIP REGION 07/13/2011 KIERAN JAMESON DO 726.5 ENTHESOPATHY OF HIP REGION 07/13/2011 726.5 ENTHESOPATHY OF HIP REGION 07/13/2011 726.5 ENTHESOPATHY OF HIP REGION 07/13/2011 726.5 ENTHESOPATHY OF HIP REGION 07/13/2011 726.5 ENTHESOPATHY OF HIP REGION 07/13/2011 726.5 ENTHESOPATHY OF HIP REGION 07/13/2011 726.5 ENTHESOPATHY OF HIP REGION 07/13/2011 726.5 ENTHESOPATHY OF HIP REGION 07/13/2011 726.5 ENTHESOPATHY OF HIP REGION 07/13/2011 726.5 ENTHESOPATHY OF HIP REGION 07/13/2011 726.5 ENTHESOPATHY OF HIP REGION 07/13/2011 WADE CARVER MD 726.5 ENTHESOPATHY OF HIP REGION 07/13/2011 WADE CARVER MD 726.5 ENTHESOPATHY OF HIP REGION 07/13/2011 WADE CARVER MD 726.5 ENTHESOPATHY OF HIP REGION 07/13/2011 AZALEA JACOME MD 726.5 ENTHESOPATHY OF HIP REGION 07/13/2011 AZALEA JACOME MD 726.5 ENTHESOPATHY OF HIP REGION 07/13/2011 AZALEA JACOME MD 726.5 ENTHESOPATHY OF HIP REGION 07/13/2011 WADE CARVER MD 726.5 ENTHESOPATHY OF HIP REGION 07/13/2011 WADE CARVER MD 726.5 ENTHESOPATHY OF HIP REGION 07/13/2011 JAMESON DO, KIERAN K 726.5 ENTHESOPATHY OF HIP REGION 07/13/2011 JAMESON DO, KIERAN K 726.5 ENTHESOPATHY OF HIP REGION 07/13/2011 JAMESON DO, KIERAN K 726.5 ENTHESOPATHY OF HIP REGION 07/13/2011 JAMESON DO, KIERAN K 726.5 ENTHESOPATHY OF HIP REGION 07/13/2011 MADL LOGISTICS SYSTEM ENGINEER, HASEEB L 726.5 ENTHESOPATHY OF HIP REGION 07/13/2011 MADL LOGISTICS SYSTEM ENGINEER, HASEEB L 726.5 ENTHESOPATHY OF HIP REGION 07/13/2011 MADL LOGISTICS SYSTEM ENGINEER, HASEEB L 726.5 ENTHESOPATHY OF HIP REGION 07/13/2011 MADL LOGISTICS SYSTEM ENGINEER, HASEEB L 726.5 ENTHESOPATHY OF HIP REGION 07/13/2011 JAMESON DO, KIERAN K 726.5 ENTHESOPATHY OF HIP REGION 07/13/2011 MADL LOGISTICS SYSTEM ENGINEER, HASEEB L 726.5 ENTHESOPATHY OF HIP REGION 07/13/2011 MADL LOGISTICS SYSTEM ENGINEER, HASEEB L 726.5 ENTHESOPATHY OF HIP REGION 07/13/2011 JAMESON DO, KIERAN K 726.5 ENTHESOPATHY OF HIP REGION 07/13/2011 JAMESON DO, KIERAN K 726.5 ENTHESOPATHY OF HIP REGION 07/13/2011 MADL LOGISTICS SYSTEM ENGINEER, HASEEB L 726.5 ENTHESOPATHY OF HIP REGION 07/13/2011 MADL LOGISTICS SYSTEM ENGINEER, HASEEB L 726.5 ENTHESOPATHY OF HIP REGION 07/13/2011 MADL LOGISTICS SYSTEM ENGINEER, HASEEB L 726.5 ENTHESOPATHY OF HIP REGION 07/13/2011 MADL LOGISTICS SYSTEM ENGINEER, HASEEB L 726.5 ENTHESOPATHY OF HIP REGION 07/20/2011 JAMESON DO, KIERAN K 458.0 Orthostatic Hypotension 07/20/2011 JAMESON DO, KIERAN K 786.05 Shortness Of Breath 07/20/2011 458.0 Orthostatic Hypotension 07/20/2011 786.05 Shortness Of Breath 07/20/2011 JAMESON DO, KIERAN K 458.0 Orthostatic Hypotension 07/20/2011 JAMESON DO, KIERAN K 786.05 Shortness Of Breath 07/20/2011 JAMESON DO, KIERAN K 458.0 Orthostatic Hypotension 07/20/2011 JAMESON DO, KIERAN K 786.05 Shortness Of Breath 07/20/2011 JAMESON DO, KIERAN K 458.0 Orthostatic Hypotension 07/20/2011 JAMESON DO, KIERAN K 786.05 Shortness Of Breath 07/20/2011 JAMESON DO, KIERAN K 458.0 Orthostatic Hypotension 07/20/2011 JAMESON DO, KIERAN K 786.05 Shortness Of Breath 07/20/2011 JAMESON DO, KIERAN K 458.0 Orthostatic Hypotension 07/20/2011 JAMESON DO, KIERAN K 786.05 Shortness Of Breath 07/20/2011 458.0 Orthostatic Hypotension 07/20/2011 786.05 Shortness Of Breath 07/20/2011 458.0 Orthostatic Hypotension 07/20/2011 786.05 Shortness Of Breath 07/20/2011 JAMESON DO, KIERAN K 458.0 Orthostatic Hypotension 07/20/2011 JAMESON DO, KIERAN K 786.05 Shortness Of Breath 07/20/2011 458.0 Orthostatic Hypotension 07/20/2011 786.05 Shortness Of Breath 07/20/2011 458.0 Orthostatic Hypotension 07/20/2011 786.05 Shortness Of Breath 07/20/2011 458.0 Orthostatic Hypotension 07/20/2011 786.05 Shortness Of Breath 07/20/2011 458.0 Orthostatic Hypotension 07/20/2011 786.05 Shortness Of Breath 07/20/2011 458.0 Orthostatic Hypotension 07/20/2011 786.05 Shortness Of Breath 07/20/2011 458.0 Orthostatic Hypotension 07/20/2011 786.05 Shortness Of Breath 07/20/2011 458.0 Orthostatic Hypotension 07/20/2011 786.05 Shortness Of Breath 07/20/2011 458.0 Orthostatic Hypotension 07/20/2011 786.05 Shortness Of Breath 07/20/2011 458.0 Orthostatic Hypotension 07/20/2011 786.05 Shortness Of Breath 07/20/2011 458.0 Orthostatic Hypotension 07/20/2011 786.05 Shortness Of Breath 07/20/2011 WADE CARVER MD 458.0 Orthostatic Hypotension 07/20/2011 WADE CARVER MD 786.05 Shortness Of Breath 07/20/2011 WADE CARVER MD 458.0 Orthostatic Hypotension 07/20/2011 WADE CARVER MD 786.05 Shortness Of Breath 07/20/2011 WADE CARVER MD 458.0 Orthostatic Hypotension 07/20/2011 WADE CARVER MD 786.05 Shortness Of Breath 07/20/2011 AZALEA JACOME MD 458.0 Orthostatic Hypotension 07/20/2011 AZALEA JACOME MD 786.05 Shortness Of Breath 07/20/2011 AZALEA JACOME MD 458.0 Orthostatic Hypotension 07/20/2011 AZALEA JACOME MD 786.05 Shortness Of Breath 07/20/2011 AZALEA JACOME MD 458.0 Orthostatic Hypotension 07/20/2011 AZALEA JACOME MD 786.05 Shortness Of Breath 07/20/2011 WADE CARVER MD 458.0 Orthostatic Hypotension 07/20/2011 WADE CARVER MD 786.05 Shortness Of Breath 07/20/2011 WADE CARVER MD 458.0 Orthostatic Hypotension 07/20/2011 WADE CARVER MD 786.05 Shortness Of Breath 07/20/2011 JAMESON DO, KIERAN K 458.0 Orthostatic Hypotension 07/20/2011 JAMESON DO, KIERAN K 786.05 Shortness Of Breath 07/20/2011 JAMESON DO, KIERAN K 458.0 Orthostatic Hypotension 07/20/2011 JAMESON DO, KIERAN K 786.05 Shortness Of Breath 07/20/2011 JAMESON DO, KIERAN K 458.0 Orthostatic Hypotension 07/20/2011 JAMESON DO, KIERAN K 786.05 Shortness Of Breath 07/20/2011 JAMESON DO, KIERAN K 458.0 Orthostatic Hypotension 07/20/2011 JAMESON DO, KIERAN K 786.05 Shortness Of Breath 07/20/2011 [employer]INEER, HASEEB L 458.0 Orthostatic Hypotension 07/20/2011 [employer] ENGINEER, HASEEB L 786.05 Shortness Of Breath 07/20/2011 [employer] ENGINEER, HASEEB L 458.0 Orthostatic Hypotension 07/20/2011 [employer] ENGINEER, HASEEB L 786.05 Shortness Of Breath 07/20/2011 [employer] ENGINEER, HASEEB L 458.0 Orthostatic Hypotension 07/20/2011 [employer] ENGINEER, HASEEB L 786.05 Shortness Of Breath 07/20/2011 [employer] ENGINEER, HASEEB L 458.0 Orthostatic Hypotension 07/20/2011 [employer] ENGINEER, HASEEB L 786.05 Shortness Of Breath 07/20/2011 JAMESON DO, KIERAN K 458.0 Orthostatic Hypotension 07/20/2011 JAMESON DO, KIERAN K 786.05 Shortness Of Breath 07/20/2011 [employer] ENGINEER, HASEEB L 458.0 Orthostatic Hypotension 07/20/2011 [employer] ENGINEER, HASEEB L 786.05 Shortness Of Breath 07/20/2011 [employer] ENGINEER, HASEEB L 458.0 Orthostatic Hypotension 07/20/2011 [employer]ER, HASEEB L 786.05 Shortness Of Breath 07/20/2011 JAMESON DO, KIERAN K 458.0 Orthostatic Hypotension 07/20/2011 JAMESON DO, KIERAN K 786.05 Shortness Of Breath 07/20/2011 JAMESON DO, KIERAN K 458.0 Orthostatic Hypotension 07/20/2011 JAMESON DO, KIERAN K 786.05 Shortness Of Breath 07/20/2011 MAD[employer] LOGISTICS SYSTEM ENGINEER, HASEEB L 458.0 Orthostatic Hypotension 07/20/2011 MAD[employer] LOGISTICS SYSTEM ENGINEER, HASEEB L 786.05 Shortness Of Breath 07/20/2011 MAD[employer] LOGISTICS SYSTEM ENGINEER, HASEEB L 458.0 Orthostatic Hypotension 07/20/2011 MAD[employer] LOGISTICS SYSTEM ENGINEER, HASEEB L 786.05 Shortness Of Breath 07/20/2011 MAD[employer] LOGISTICS SYSTEM ENGINEER, HASEEB L 458.0 Orthostatic Hypotension 07/20/2011 MADL LOGISTICS SYSTEM ENGINEER, HASEEB L 786.05 Shortness Of Breath 07/20/2011 MAD[employer] LOGISTICS SYSTEM ENGINEER, HASEEB L 458.0 Orthostatic Hypotension 07/20/2011 MAD[employer] LOGISTICS SYSTEM ENGINEER, HASEEB L 786.05 Shortness Of Breath 08/01/2011 JAMESON DO, KIERAN K 611.71 Mastodynia 08/01/2011 JAMESON DO, KIERAN K 724.79 OTHER DISORDERS OF COCCYX 08/01/2011 JAMESON DO, KIERAN K V76.10 BREAST SCREENING UNSPECIFIED 08/01/2011 611.71 Mastodynia 08/01/2011 724.79 OTHER DISORDERS OF COCCYX 08/01/2011 V76.10 BREAST SCREENING UNSPECIFIED 08/01/2011 JAMESON DO, KIERAN K 611.71 Mastodynia 08/01/2011 JAMESON DO, KIERAN K 724.79 OTHER DISORDERS OF COCCYX 08/01/2011 JAMESON DO, KIERAN K V76.10 BREAST SCREENING UNSPECIFIED 08/01/2011 JAMESON DO, KIERAN K 611.71 Mastodynia 08/01/2011 JAMESON DO, KIERAN K 724.79 OTHER DISORDERS OF COCCYX 08/01/2011 JAMESON DO, KIERAN K V76.10 BREAST SCREENING UNSPECIFIED 08/01/2011 JAMESON DO, KIERAN K 611.71 Mastodynia 08/01/2011 JAMESON DO, KIERAN K 724.79 OTHER DISORDERS OF COCCYX 08/01/2011 JAMESON DO, KIERAN K V76.10 BREAST SCREENING UNSPECIFIED 08/01/2011 JAMESON DO, KIERAN K 611.71 Mastodynia 08/01/2011 JAMESON DO, KIERAN K 724.79 OTHER DISORDERS OF COCCYX 08/01/2011 JAMESON DO, KIERAN K V76.10 BREAST SCREENING UNSPECIFIED 08/01/2011 JAMESON DO, KIERAN K 611.71 Mastodynia 08/01/2011 JAMESON DO, KIERAN K 724.79 OTHER DISORDERS OF COCCYX 08/01/2011 JAMESON DO, KIERAN K V76.10 BREAST SCREENING UNSPECIFIED 08/01/2011 611.71 Mastodynia 08/01/2011 724.79 OTHER DISORDERS OF COCCYX 08/01/2011 V76.10 BREAST SCREENING UNSPECIFIED 08/01/2011 611.71 Mastodynia 08/01/2011 724.79 OTHER DISORDERS OF COCCYX 08/01/2011 V76.10 BREAST SCREENING UNSPECIFIED 08/01/2011 JAMESON DO, KIERAN K 611.71 Mastodynia 08/01/2011 KIERAN JAMESON DO 724.79 OTHER DISORDERS OF COCCYX 08/01/2011 KIERAN JAMESON DO V76.10 BREAST SCREENING UNSPECIFIED 08/01/2011 611.71 Mastodynia 08/01/2011 724.79 OTHER DISORDERS OF COCCYX 08/01/2011 V76.10 BREAST SCREENING UNSPECIFIED 08/01/2011 611.71 Mastodynia 08/01/2011 724.79 OTHER DISORDERS OF COCCYX 08/01/2011 V76.10 BREAST SCREENING UNSPECIFIED 08/01/2011 611.71 Mastodynia 08/01/2011 724.79 OTHER DISORDERS OF COCCYX 08/01/2011 V76.10 BREAST SCREENING UNSPECIFIED 08/01/2011 611.71 Mastodynia 08/01/2011 724.79 OTHER DISORDERS OF COCCYX 08/01/2011 V76.10 BREAST SCREENING UNSPECIFIED 08/01/2011 611.71 Mastodynia 08/01/2011 724.79 OTHER DISORDERS OF COCCYX 08/01/2011 V76.10 BREAST SCREENING UNSPECIFIED 08/01/2011 611.71 Mastodynia 08/01/2011 724.79 OTHER DISORDERS OF COCCYX 08/01/2011 V76.10 BREAST SCREENING UNSPECIFIED 08/01/2011 611.71 Mastodynia 08/01/2011 724.79 OTHER DISORDERS OF COCCYX 08/01/2011 V76.10 BREAST SCREENING UNSPECIFIED 08/01/2011 611.71 Mastodynia 08/01/2011 724.79 OTHER DISORDERS OF COCCYX 08/01/2011 V76.10 BREAST SCREENING UNSPECIFIED 08/01/2011 611.71 Mastodynia 08/01/2011 724.79 OTHER DISORDERS OF COCCYX 08/01/2011 V76.10 BREAST SCREENING UNSPECIFIED 08/01/2011 611.71 Mastodynia 08/01/2011 724.79 OTHER DISORDERS OF COCCYX 08/01/2011 V76.10 BREAST SCREENING UNSPECIFIED 08/01/2011 WADE CARVER MD 611.71 Mastodynia 08/01/2011 WADE CARVER MD 724.79 OTHER DISORDERS OF COCCYX 08/01/2011 WADE CARVER MD V76.10 BREAST SCREENING UNSPECIFIED 08/01/2011 WADE CARVER MD 611.71 Mastodynia 08/01/2011 WADE CARVER MD 724.79 OTHER DISORDERS OF COCCYX 08/01/2011 WADE CARVER MD V76.10 BREAST SCREENING UNSPECIFIED 08/01/2011 WADE CARVER MD 611.71 Mastodynia 08/01/2011 WADE CARVER MD 724.79 OTHER DISORDERS OF COCCYX 08/01/2011 WADE CARVER MD V76.10 BREAST SCREENING UNSPECIFIED 08/01/2011 AZALEA JACOME MD 611.71 Mastodynia 08/01/2011 AZALEA JACOME MD 724.79 OTHER DISORDERS OF COCCYX 08/01/2011 AZALEA JACOME MD V76.10 BREAST SCREENING UNSPECIFIED 08/01/2011 AZALEA JACOME MD 611.71 Mastodynia 08/01/2011 AZALEA JACOME MD 724.79 OTHER DISORDERS OF COCCYX 08/01/2011 AZALEA JACOME MD V76.10 BREAST SCREENING UNSPECIFIED 08/01/2011 AZALEA JACOME MD 611.71 Mastodynia 08/01/2011 AZALEA JACOME MD 724.79 OTHER DISORDERS OF COCCYX 08/01/2011 AZALEA JACOME MD V76.10 BREAST SCREENING UNSPECIFIED 08/01/2011 WADE CARVER MD 611.71 Mastodynia 08/01/2011 WADE CARVER MD 724.79 OTHER DISORDERS OF COCCYX 08/01/2011 WADE CARVER MD V76.10 BREAST SCREENING UNSPECIFIED 08/01/2011 WADE CARVER MD 611.71 Mastodynia 08/01/2011 WADE CARVER MD 724.79 OTHER DISORDERS OF COCCYX 08/01/2011 WADE CARVER MD V76.10 BREAST SCREENING UNSPECIFIED 08/01/2011 JAMESON DO KIERAN K 611.71 Mastodynia 08/01/2011 JAMESON DO KIERAN K 724.79 OTHER DISORDERS OF COCCYX 08/01/2011 JAMESON DO KIERAN K V76.10 BREAST SCREENING UNSPECIFIED 08/01/2011 JAMESON DO KIERAN K 611.71 Mastodynia 08/01/2011 JAMESON DO KIERAN K 724.79 OTHER DISORDERS OF COCCYX 08/01/2011 JAMESON DO, KIERAN K V76.10 BREAST SCREENING UNSPECIFIED 08/01/2011 JAMESON DO, KIERAN K 611.71 Mastodynia 08/01/2011 JAMESON DO, KIERAN K 724.79 OTHER DISORDERS OF COCCYX 08/01/2011 JAMESON DO, KIERAN K V76.10 BREAST SCREENING UNSPECIFIED 08/01/2011 JAMESON DO, KIERAN K 611.71 Mastodynia 08/01/2011 JAMESON DO, KIERAN K 724.79 OTHER DISORDERS OF COCCYX 08/01/2011 JAMESON DO, KIERAN K V76.10 BREAST SCREENING UNSPECIFIED 08/01/2011 MAD[employer] LOGISTICS SYSTEM ENGINEER, HASEEB L 611.71 Mastodynia 08/01/2011 MADL LOGISTICS SYSTEM ENGINEER, HASEEB L 724.79 OTHER DISORDERS OF COCCYX 08/01/2011 MADL LOGISTICS SYSTEM ENGINEER, HASEEB L V76.10 BREAST SCREENING UNSPECIFIED 08/01/2011 MADL LOGISTICS SYSTEM ENGINEER, HASEEB L 611.71 Mastodynia 08/01/2011 MADL LOGISTICS SYSTEM ENGINEER, HASEEB L 724.79 OTHER DISORDERS OF COCCYX 08/01/2011 MADL LOGISTICS SYSTEM ENGINEER, HASEEB L V76.10 BREAST SCREENING UNSPECIFIED 08/01/2011 MADL LOGISTICS SYSTEM ENGINEER, HASEEB L 611.71 Mastodynia 08/01/2011 MADL LOGISTICS SYSTEM ENGINEER, HASEEB L 724.79 OTHER DISORDERS OF COCCYX 08/01/2011 MADL LOGISTICS SYSTEM ENGINEER, HASEEB L V76.10 BREAST SCREENING UNSPECIFIED 08/01/2011 MADL LOGISTICS SYSTEM ENGINEER, HASEEB L 611.71 Mastodynia 08/01/2011 MADL LOGISTICS SYSTEM ENGINEER, HASEEB L 724.79 OTHER DISORDERS OF COCCYX 08/01/2011 MADL LOGISTICS SYSTEM ENGINEER, HASEEB L V76.10 BREAST SCREENING UNSPECIFIED 08/01/2011 JAMESON DO, KIERAN K 611.71 Mastodynia 08/01/2011 JAMESON DO, KIERAN K 724.79 OTHER DISORDERS OF COCCYX 08/01/2011 JAMESON DO, KIERAN K V76.10 BREAST SCREENING UNSPECIFIED 08/01/2011 MADL LOGISTICS SYSTEM ENGINEER, HASEEB L 611.71 Mastodynia 08/01/2011 MADL LOGISTICS SYSTEM ENGINEER, HASEEB L 724.79 OTHER DISORDERS OF COCCYX 08/01/2011 MADL LOGISTICS SYSTEM ENGINEER, HASEEB L V76.10 BREAST SCREENING UNSPECIFIED 08/01/2011 MADL LOGISTICS SYSTEM ENGINEER, HASEEB L 611.71 Mastodynia 08/01/2011 MADL LOGISTICS SYSTEM ENGINEER, HASEEB L 724.79 OTHER DISORDERS OF COCCYX 08/01/2011 MADL LOGISTICS SYSTEM ENGINEER, HASEEB L V76.10 BREAST SCREENING UNSPECIFIED 08/01/2011 JAMESON DO, KIERAN K 611.71 Mastodynia 08/01/2011 JAMESON DO, KIERAN K 724.79 OTHER DISORDERS OF COCCYX 08/01/2011 JAMESON DO, KIERAN K V76.10 BREAST SCREENING UNSPECIFIED 08/01/2011 JAMESON DO, KIERAN K 611.71 Mastodynia 08/01/2011 JAMESON DO, KIERAN K 724.79 OTHER DISORDERS OF COCCYX 08/01/2011 JAMESON DO, KIERAN K V76.10 BREAST SCREENING UNSPECIFIED 08/01/2011 MADL LOGISTICS SYSTEM ENGINEER, HASEEB L 611.71 Mastodynia 08/01/2011 MADL LOGISTICS SYSTEM ENGINEER, HASEEB L 724.79 OTHER DISORDERS OF COCCYX 08/01/2011 MADL LOGISTICS SYSTEM ENGINEER, HASEEB L V76.10 BREAST SCREENING UNSPECIFIED 08/01/2011 MADL LOGISTICS SYSTEM ENGINEER, HASEEB L 611.71 Mastodynia 08/01/2011 MADL LOGISTICS SYSTEM ENGINEER, HASEEB L 724.79 OTHER DISORDERS OF COCCYX 08/01/2011 MADL LOGISTICS SYSTEM ENGINEER, HASEEB L V76.10 BREAST SCREENING UNSPECIFIED 08/01/2011 MADL LOGISTICS SYSTEM ENGINEER, HASEEB L 611.71 Mastodynia 08/01/2011 MADL LOGISTICS SYSTEM ENGINEER, HASEEB L 724.79 OTHER DISORDERS OF COCCYX 08/01/2011 MADL LOGISTICS SYSTEM ENGINEER, HASEEB L V76.10 BREAST SCREENING UNSPECIFIED 08/01/2011 MADL LOGISTICS SYSTEM ENGINEER, HASEEB L 611.71 Mastodynia 08/01/2011 MADL LOGISTICS SYSTEM ENGINEER, HASEEB L 724.79 OTHER DISORDERS OF COCCYX 08/01/2011 MADL LOGISTICS SYSTEM ENGINEER, HASEEB L V76.10 BREAST SCREENING UNSPECIFIED 09/05/2011 Ot 272.4 HYPERLIPIDEMIA NEC/NOS 09/05/2011 Ot 397.0 TRICUSPID VALVE DISEASE 09/05/2011 Ot 401.9 HYPERTENSION NOS 09/05/2011 Ot 424.0 MITRAL VALVE DISORDER 09/05/2011 Ot 715.90 OSTEOARTHROS NOS-UNSPEC 09/05/2011 Ot 786.50 CHEST PAIN NOS 09/05/2011 Ot V58.66 LONG-TERM ( CURRENT) USE OF ASPIRIN 09/05/2011 Ot V58.69 OTH MED,LT, CURRENT USE 09/08/2011 JAMESON DOBAYLEEA K 780.4 Dizziness And Giddiness 09/08/2011 780.4 Dizziness And Giddiness 09/08/2011 JAMESON DO, KIERAN K 780.4 Dizziness And Giddiness 09/08/2011 JAMESON DO, KIERAN K 780.4 Dizziness And Giddiness 09/08/2011 JAMESON DO, KIERAN K 780.4 Dizziness And Giddiness 09/08/2011 JAMESON DO, KIERAN K 780.4 Dizziness And Giddiness 09/08/2011 JAMESON DO, KIERAN K 780.4 Dizziness And Giddiness 09/08/2011 780.4 Dizziness And Giddiness 09/08/2011 780.4 Dizziness And Giddiness 09/08/2011 JAMESON DO, KIERAN K 780.4 Dizziness And Giddiness 09/08/2011 780.4 Dizziness And Giddiness 09/08/2011 780.4 Dizziness And Giddiness 09/08/2011 780.4 Dizziness And Giddiness 09/08/2011 780.4 dizziness 09/08/2011 780.4 dizziness 09/08/2011 780.4 dizziness 09/08/2011 780.4 dizziness 09/08/2011 780.4 dizziness 09/08/2011 780.4 dizziness 09/08/2011 780.4 dizziness 09/08/2011 WADE CARVER MD 780.4 dizziness 09/08/2011 WADE CARVER MD 780.4 dizziness 09/08/2011 WADE CARVER MD 780.4 dizziness 09/08/2011 AZALEA JACOME MD 780.4 dizziness 09/08/2011 AZALEA JACOME MD 780.4 dizziness 09/08/2011 AZALEA JACOME MD 780.4 dizziness 09/08/2011 WADE CARVER MD 780.4 dizziness 09/08/2011 WADE CARVER MD 780.4 dizziness 09/08/2011 KIERAN JAMESON DO 780.4 dizziness 09/08/2011 JAMESON DO, KIERAN K 780.4 dizziness 09/08/2011 JAMESON DO, KIERAN K 780.4 dizziness 09/08/2011 JAMESON DO, KIERAN K 780.4 dizziness 09/08/2011 MADL LOGISTICS SYSTEM ENGINEER, HASEEB L 780.4 dizziness 09/08/2011 MADL LOGISTICS SYSTEM ENGINEER, HASEEB L 780.4 dizziness 09/08/2011 MADL LOGISTICS SYSTEM ENGINEER, HASEEB L 780.4 dizziness 09/08/2011 MADL LOGISTICS SYSTEM ENGINEER, HASEEB L 780.4 dizziness 09/08/2011 JAMESON DO, KIERAN K 780.4 dizziness 09/08/2011 MADL LOGISTICS SYSTEM ENGINEER, HASEEB L 780.4 dizziness 09/08/2011 MADL LOGISTICS SYSTEM ENGINEER, HASEEB L 780.4 dizziness 09/08/2011 JAMESON DO, KIERAN K 780.4 dizziness 09/08/2011 JAMESON DO, KIERAN K 780.4 dizziness 09/08/2011 MADL LOGISTICS SYSTEM ENGINEER, HASEEB L 780.4 dizziness 09/08/2011 MADL LOGISTICS SYSTEM ENGINEER, HASEEB L 780.4 dizziness 09/08/2011 MADL LOGISTICS SYSTEM ENGINEER, HASEEB L 780.4 dizziness 09/08/2011 MADL LOGISTICS SYSTEM ENGINEER, HASEEB L 780.4 dizziness 09/18/2011 JAMESON DO, KIERAN K 720.2 SACROILIITIS NOT ELSEWHERE CLASSIFIED 09/18/2011 720.2 SACROILIITIS NOT ELSEWHERE CLASSIFIED 09/18/2011 JAMESON DO, KIERAN K 720.2 SACROILIITIS NOT ELSEWHERE CLASSIFIED 09/18/2011 JAMESON DO, KIERAN K 720.2 SACROILIITIS NOT ELSEWHERE CLASSIFIED 09/18/2011 JAMESON DO, KIERAN K 720.2 SACROILIITIS NOT ELSEWHERE CLASSIFIED 09/18/2011 JAMESON DO, KIERAN K 720.2 SACROILIITIS 09/18/2011 JAMESON DO, KIERAN K 720.2 SACROILIITIS 09/18/2011 720.2 SACROILIITIS 09/18/2011 720.2 SACROILIITIS 09/18/2011 JAMESON DO, KIERAN K 720.2 SACROILIITIS NOT ELSEWHERE CLASSIFIED 09/18/2011 720.2 SACROILIITIS 09/18/2011 720.2 SACROILIITIS 09/18/2011 720.2 SACROILIITIS 09/18/2011 720.2 SACROILIITIS 09/18/2011 720.2 SACROILIITIS 09/18/2011 720.2 SACROILIITIS 09/18/2011 720.2 SACROILIITIS 09/18/2011 720.2 SACROILIITIS 09/18/2011 720.2 SACROILIITIS 09/18/2011 720.2 SACROILIITIS 09/18/2011 WADE CARVER MD 720.2 SACROILIITIS 09/18/2011 WEN VEGA, WADE Ramírez 720.2 SACROILIITIS 09/18/2011 WADE CARVER MD 720.2 SACROILIITIS 09/18/2011 NAA VEGA, AZALEA 720.2 SACROILIITIS 09/18/2011 NAA VEGA, AZALEA 720.2 SACROILIITIS 09/18/2011 NAA VEGA, AZALEA 720.2 SACROILIITIS 09/18/2011 WADE CARVER MD 720.2 SACROILIITIS 09/18/2011 WADE CARVER MD 720.2 SACROILIITIS 09/18/2011 JAMESON DO, KIERAN K 720.2 SACROILIITIS 09/18/2011 JAMESON DO, KIERAN K 720.2 SACROILIITIS 09/18/2011 JAMESON DO, KIERAN K 720.2 SACROILIITIS 09/18/2011 JAMESON DO, KIERAN K 720.2 SACROILIITIS 09/18/2011 MADL LOGISTICS SYSTEM ENGINEER, HASEEB L 720.2 SACROILIITIS 09/18/2011 MADL LOGISTICS SYSTEM ENGINEER, HASEEB L 720.2 SACROILIITIS 09/18/2011 MADL LOGISTICS SYSTEM ENGINEER, HASEEB L 720.2 SACROILIITIS 09/18/2011 MADL LOGISTICS SYSTEM ENGINEER, HASEEB L 720.2 SACROILIITIS 09/18/2011 JAMESON DO, KIERAN K 720.2 SACROILIITIS 09/18/2011 MADL LOGISTICS SYSTEM ENGINEER, HASEEB L 720.2 SACROILIITIS 09/18/2011 MADL LOGISTICS SYSTEM ENGINEER, HASEEB L 720.2 SACROILIITIS 09/18/2011 JAMESON DO, KIERAN K 720.2 SACROILIITIS 09/18/2011 JAMESON DO, KIERAN K 720.2 SACROILIITIS 09/18/2011 MADL LOGISTICS SYSTEM ENGINEER, HASEEB L 720.2 SACROILIITIS 09/18/2011 MADL LOGISTICS SYSTEM ENGINEER, HASEEB L 720.2 SACROILIITIS 09/18/2011 MADL LOGISTICS SYSTEM ENGINEER, HASEEB L 720.2 SACROILIITIS 09/18/2011 MADL LOGISTICS SYSTEM ENGINEER, HASEEB L 720.2 SACROILIITIS 09/27/2011 JAMESON DO, KIERAN K 272.4 OTHER AND UNSPECIFIED HYPERLIPIDEMIA 09/27/2011 272.4 OTHER AND UNSPECIFIED HYPERLIPIDEMIA 09/27/2011 JAMESON DO, KIERAN K 272.4 OTHER AND UNSPECIFIED HYPERLIPIDEMIA 09/27/2011 JAMESON DO, KIERAN K 272.4 OTHER AND UNSPECIFIED HYPERLIPIDEMIA 09/27/2011 JAMESON DO, KIERAN K 272.4 OTHER AND UNSPECIFIED HYPERLIPIDEMIA 09/27/2011 JAMESON DO, KIERAN K 272.4 OTHER AND UNSPECIFIED HYPERLIPIDEMIA 09/27/2011 JAMESON DO, KIERAN K 272.4 OTHER AND UNSPECIFIED HYPERLIPIDEMIA 09/27/2011 272.4 OTHER AND UNSPECIFIED HYPERLIPIDEMIA 09/27/2011 272.4 OTHER AND UNSPECIFIED HYPERLIPIDEMIA 09/27/2011 JAMESON DO, KIERAN K 272.4 OTHER AND UNSPECIFIED HYPERLIPIDEMIA 09/27/2011 272.4 OTHER AND UNSPECIFIED HYPERLIPIDEMIA 09/27/2011 272.4 OTHER AND UNSPECIFIED HYPERLIPIDEMIA 09/27/2011 272.4 OTHER AND UNSPECIFIED HYPERLIPIDEMIA 09/27/2011 272.4 OTHER AND UNSPECIFIED HYPERLIPIDEMIA 09/27/2011 272.4 OTHER AND UNSPECIFIED HYPERLIPIDEMIA 09/27/2011 272.4 OTHER AND UNSPECIFIED HYPERLIPIDEMIA 09/27/2011 272.4 OTHER AND UNSPECIFIED HYPERLIPIDEMIA 09/27/2011 272.4 OTHER AND UNSPECIFIED HYPERLIPIDEMIA 09/27/2011 272.4 OTHER AND UNSPECIFIED HYPERLIPIDEMIA 09/27/2011 272.4 OTHER AND UNSPECIFIED HYPERLIPIDEMIA 09/27/2011 WADE CARVER MD 272.4 OTHER AND UNSPECIFIED HYPERLIPIDEMIA 09/27/2011 WADE CARVER MD 272.4 OTHER AND UNSPECIFIED HYPERLIPIDEMIA 09/27/2011 WADE CARVER MD 272.4 OTHER AND UNSPECIFIED HYPERLIPIDEMIA 09/27/2011 AZALEA JACOME MD 272.4 OTHER AND UNSPECIFIED HYPERLIPIDEMIA 09/27/2011 AZALEA JACOME MD 272.4 OTHER AND UNSPECIFIED HYPERLIPIDEMIA 09/27/2011 AZALEA JACOME MD 272.4 OTHER AND UNSPECIFIED HYPERLIPIDEMIA 09/27/2011 WADE CARVER MD 272.4 OTHER AND UNSPECIFIED HYPERLIPIDEMIA 09/27/2011 WADE CARVER MD 272.4 OTHER AND UNSPECIFIED HYPERLIPIDEMIA 09/27/2011 JAMESON DO, KIERAN K 272.4 OTHER AND UNSPECIFIED HYPERLIPIDEMIA 09/27/2011 JAMESON DO, KIERAN K 272.4 OTHER AND UNSPECIFIED HYPERLIPIDEMIA 09/27/2011 JAMESON DO, KIERAN K 272.4 OTHER AND UNSPECIFIED HYPERLIPIDEMIA 09/27/2011 JAMESON DO, KIERAN K 272.4 OTHER AND UNSPECIFIED HYPERLIPIDEMIA 09/27/2011 MADL LOGISTICS SYSTEM ENGINEER, HASEEB L 272.4 OTHER AND UNSPECIFIED HYPERLIPIDEMIA 09/27/2011 MADL LOGISTICS SYSTEM ENGINEER, HASEEB L 272.4 OTHER AND UNSPECIFIED HYPERLIPIDEMIA 09/27/2011 MADL LOGISTICS SYSTEM ENGINEER, HASEEB L 272.4 OTHER AND UNSPECIFIED HYPERLIPIDEMIA 09/27/2011 MADL LOGISTICS SYSTEM ENGINEER, HASEEB L 272.4 OTHER AND UNSPECIFIED HYPERLIPIDEMIA 09/27/2011 JAMESON DO, KIERAN K 272.4 OTHER AND UNSPECIFIED HYPERLIPIDEMIA 09/27/2011 MADL LOGISTICS SYSTEM ENGINEER, HASEEB L 272.4 OTHER AND UNSPECIFIED HYPERLIPIDEMIA 09/27/2011 MADL LOGISTICS SYSTEM ENGINEER, HASEEB L 272.4 OTHER AND UNSPECIFIED HYPERLIPIDEMIA 09/27/2011 JAMESON DO, KIERAN K 272.4 OTHER AND UNSPECIFIED HYPERLIPIDEMIA 09/27/2011 JAMESON DO, KIERAN K 272.4 OTHER AND UNSPECIFIED HYPERLIPIDEMIA 09/27/2011 MADL LOGISTICS SYSTEM ENGINEER, HASEEB L 272.4 OTHER AND UNSPECIFIED HYPERLIPIDEMIA 09/27/2011 MADL LOGISTICS SYSTEM ENGINEER, HASEEB L 272.4 OTHER AND UNSPECIFIED HYPERLIPIDEMIA 09/27/2011 MADL LOGISTICS SYSTEM ENGINEER, HASEEB L 272.4 OTHER AND UNSPECIFIED HYPERLIPIDEMIA 09/27/2011 MADL LOGISTICS SYSTEM ENGINEER, HASEEB L 272.4 OTHER AND UNSPECIFIED HYPERLIPIDEMIA 10/20/2011 JAMESON DO, KIERAN K 786.52 Painful Respiration 10/20/2011 786.52 Painful Respiration 10/20/2011 JAMESON DO, KIERAN K 786.52 Painful Respiration 10/20/2011 JAMESON DO, KIERAN K 786.52 Painful Respiration 10/20/2011 JAMESON DO, KIERAN K 786.52 Painful Respiration 10/20/2011 JAMESON DO, KIERAN K 786.52 Painful Respiration 10/20/2011 JAMESON DO, KIERAN K 786.52 Painful Respiration 10/20/2011 786.52 Painful Respiration 10/20/2011 786.52 Painful Respiration 10/20/2011 JAMESON DO, KIERAN K 786.52 Painful Respiration 10/20/2011 786.52 Painful Respiration 10/20/2011 786.52 Painful Respiration 10/20/2011 786.52 Painful Respiration 10/20/2011 786.52 Painful Respiration 10/20/2011 786.52 Painful Respiration 10/20/2011 786.52 Painful Respiration 10/20/2011 786.52 Painful Respiration 10/20/2011 786.52 Painful Respiration 10/20/2011 786.52 Painful Respiration 10/20/2011 786.52 Painful Respiration 10/20/2011 WADE CARVER MD 786.52 Painful Respiration 10/20/2011 WADE CARVER MD 786.52 Painful Respiration 10/20/2011 WADE CARVER MD 786.52 Painful Respiration 10/20/2011 AZALEA JACOME MD 786.52 Painful Respiration 10/20/2011 AZALEA JACOME MD 786.52 Painful Respiration 10/20/2011 AZALEA JACOME MD 786.52 Painful Respiration 10/20/2011 WADE CARVER MD 786.52 Painful Respiration 10/20/2011 WADE CARVER MD 786.52 Painful Respiration 10/20/2011 JAMESON DO, KIERAN K 786.52 Painful Respiration 10/20/2011 JAMESON DO, KIERAN K 786.52 Painful Respiration 10/20/2011 JAMESON DO, KIERAN K 786.52 Painful Respiration 10/20/2011 JAMESON DO, KIERAN K 786.52 Painful Respiration 10/20/2011 MADL LOGISTICS SYSTEM ENGINEER, HASEEB L 786.52 Painful Respiration 10/20/2011 MADL LOGISTICS SYSTEM ENGINEER, HASEEB L 786.52 Painful Respiration 10/20/2011 MADL LOGISTICS SYSTEM ENGINEER, HASEEB L 786.52 Painful Respiration 10/20/2011 MADL LOGISTICS SYSTEM ENGINEER, HASEEB L 786.52 Painful Respiration 10/20/2011 JAMESON DO, KIERAN K 786.52 Painful Respiration 10/20/2011 MADL LOGISTICS SYSTEM ENGINEER, HASEEB L 786.52 Painful Respiration 10/20/2011 MADL LOGISTICS SYSTEM ENGINEER, HASEEB L 786.52 Painful Respiration 10/20/2011 JAMESON DO, KIERAN K 786.52 Painful Respiration 10/20/2011 JAMESON DO, KIERAN K 786.52 Painful Respiration 10/20/2011 MADL LOGISTICS SYSTEM ENGINEER, HASEEB L 786.52 Painful Respiration 10/20/2011 MADL LOGISTICS SYSTEM ENGINEER, HASEEB L 786.52 Painful Respiration 10/20/2011 MADL LOGISTICS SYSTEM ENGINEER, HASEEB L 786.52 Painful Respiration 10/20/2011 MADL LOGISTICS SYSTEM ENGINEER, HASEEB L 786.52 Painful Respiration 10/25/2011 JAMESON DO, KIERAN K 733.6 Tietze's Disease 10/25/2011 733.6 Tietze's Disease 10/25/2011 JAMESON DO, KIERAN K 733.6 Tietze's Disease 10/25/2011 JAMESON DO, KIERAN K 733.6 Tietze's Disease 10/25/2011 JAMESON DO, KIERAN K 733.6 Tietze's Disease 10/25/2011 JAMESON DO, KIERAN K 733.6 Tietze's Disease 10/25/2011 JAMESON DO, KIERAN K 733.6 Tietze's Disease 10/25/2011 733.6 Tietze's Disease 10/25/2011 733.6 Tietze's Disease 10/25/2011 JAMESON DO, KIERAN K 733.6 Tietze's Disease 10/25/2011 733.6 Tietze's Disease 10/25/2011 733.6 Tietze's Disease 10/25/2011 733.6 Tietze's Disease 10/25/2011 733.6 Tietze's Disease 10/25/2011 733.6 Tietze's Disease 10/25/2011 733.6 Tietze's Disease 10/25/2011 733.6 Tietze's Disease 10/25/2011 733.6 Tietze's Disease 10/25/2011 733.6 Tietze's Disease 10/25/2011 733.6 Tietze's Disease 10/25/2011 WADE CARVER MD 733.6 Tietze's Disease 10/25/2011 WADE CARVER MD 733.6 Tietze's Disease 10/25/2011 WADE CARVER MD 733.6 Tietze's Disease 10/25/2011 NAA VEGA, AZALEA 733.6 Tietze's Disease 10/25/2011 NAA VEGA, AZALEA 733.6 Tietze's Disease 10/25/2011 NAA VEGA, AZALEA 733.6 Tietze's Disease 10/25/2011 WEN VEGA, WADE Ramírez 733.6 Tietze's Disease 10/25/2011 WEN VEGA, WADE Ramírez 733.6 Tietze's Disease 10/25/2011 JAMESON DO, KIERAN K 733.6 Tietze's Disease 10/25/2011 JAMESON DO, KIERAN K 733.6 Tietze's Disease 10/25/2011 JAMESON DO, KIERAN K 733.6 Tietze's Disease 10/25/2011 JAMESON DO, KIERAN K 733.6 Tietze's Disease 10/25/2011 [employer] ENGINEER, HASEEB L 733.6 Tietze's Disease 10/25/2011 [employer] ENGINEER, HASEEB L 733.6 Tietze's Disease 10/25/2011 [employer] ENGINEER, HASEEB L 733.6 Tietze's Disease 10/25/2011 [employer] ENGINEER, HASEEB L 733.6 Tietze's Disease 10/25/2011 JAMESON DO, KIERAN K 733.6 Tietze's Disease 10/25/2011 [employer] ENGINEER, HASEEB L 733.6 Tietze's Disease 10/25/2011 [employer] ENGINEER, HASEEB L 733.6 Tietze's Disease 10/25/2011 JAMESON DO, KIERAN K 733.6 Tietze's Disease 10/25/2011 JAMESON DO, KIERAN K 733.6 Tietze's Disease 10/25/2011 [employer] ENGINEER, HASEEB L 733.6 Tietze's Disease 10/25/2011 [employer] ENGINEER, HASEEB L 733.6 Tietze's Disease 10/25/2011 [employer] ENGINEER, HASEEB L 733.6 Tietze's Disease 10/25/2011 [employer] ENGINEER, HASEEB L 733.6 Tietze's Disease 11/06/2011 JAMESON DO, KIERAN K 458.0 ORTHOSTATIC HYPOTENSION 11/06/2011 458.0 ORTHOSTATIC HYPOTENSION 11/06/2011 JAMESON DO, KIERAN K 458.0 ORTHOSTATIC HYPOTENSION 11/06/2011 JAMESON DO, KIERAN K 458.0 ORTHOSTATIC HYPOTENSION 11/06/2011 JAMESON DO, KIERAN K 458.0 ORTHOSTATIC HYPOTENSION 11/06/2011 JAMESON DO, KIERAN K 458.0 ORTHOSTATIC HYPOTENSION 11/06/2011 JMAESON DO, KIERAN K 458.0 ORTHOSTATIC HYPOTENSION 11/06/2011 458.0 ORTHOSTATIC HYPOTENSION 11/06/2011 458.0 ORTHOSTATIC HYPOTENSION 11/06/2011 JAEMSON DO, KIERAN K 458.0 ORTHOSTATIC HYPOTENSION 11/06/2011 458.0 ORTHOSTATIC HYPOTENSION 11/06/2011 458.0 ORTHOSTATIC HYPOTENSION 11/06/2011 458.0 ORTHOSTATIC HYPOTENSION 11/06/2011 458.0 ORTHOSTATIC HYPOTENSION 11/06/2011 458.0 ORTHOSTATIC HYPOTENSION 11/06/2011 458.0 ORTHOSTATIC HYPOTENSION 11/06/2011 458.0 ORTHOSTATIC HYPOTENSION 11/06/2011 458.0 ORTHOSTATIC HYPOTENSION 11/06/2011 458.0 ORTHOSTATIC HYPOTENSION 11/06/2011 458.0 ORTHOSTATIC HYPOTENSION 11/06/2011 WADE CARVER MD 458.0 ORTHOSTATIC HYPOTENSION 11/06/2011 WADE CARVER MD 458.0 ORTHOSTATIC HYPOTENSION 11/06/2011 WADE CARVER MD 458.0 ORTHOSTATIC HYPOTENSION 11/06/2011 AZALEA JACOME MD 458.0 ORTHOSTATIC HYPOTENSION 11/06/2011 AZALEA JACOME MD 458.0 ORTHOSTATIC HYPOTENSION 11/06/2011 AZALEA JACOME MD 458.0 ORTHOSTATIC HYPOTENSION 11/06/2011 WADE CARVER MD 458.0 ORTHOSTATIC HYPOTENSION 11/06/2011 WADE CARVER MD 458.0 ORTHOSTATIC HYPOTENSION 11/06/2011 JAMESON DO, KIERAN K 458.0 ORTHOSTATIC HYPOTENSION 11/06/2011 JAMESON DO, KIERAN K 458.0 ORTHOSTATIC HYPOTENSION 11/06/2011 JAMESON DO, KIERAN K 458.0 ORTHOSTATIC HYPOTENSION 11/06/2011 JAMESON DO, KIERAN K 458.0 ORTHOSTATIC HYPOTENSION 11/06/2011 [employer] ENGINEER, HASEEB L 458.0 ORTHOSTATIC HYPOTENSION 11/06/2011 [employer] ENGINEER, HASEEB L 458.0 ORTHOSTATIC HYPOTENSION 11/06/2011 [employer] ENGINEER, HASEEB L 458.0 ORTHOSTATIC HYPOTENSION 11/06/2011 [employer] ENGINEER, HASEEB L 458.0 ORTHOSTATIC HYPOTENSION 11/06/2011 JAMESON DO, KIERAN K 458.0 ORTHOSTATIC HYPOTENSION 11/06/2011 [employer] ENGINEER, HASEEB L 458.0 ORTHOSTATIC HYPOTENSION 11/06/2011 [employer]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, HASEEB L 458.0 ORTHOSTATIC HYPOTENSION 11/06/2011 JAMESON DO, KIERAN K 458.0 ORTHOSTATIC HYPOTENSION 11/06/2011 JAMESON DO, KIERAN K 458.0 ORTHOSTATIC HYPOTENSION 11/06/2011 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 LOGISTICS SYSTEM ENGINEER, HASEEB L 458.0 ORTHOSTATIC HYPOTENSION 11/06/2011 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 LOGISTICS SYSTEM ENGINEER, HASEEB L 458.0 ORTHOSTATIC HYPOTENSION 11/06/2011 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 LOGISTICS SYSTEM ENGINEER, HASEEB L 458.0 ORTHOSTATIC HYPOTENSION 11/06/2011 MADL LOGISTICS SYSTEM ENGINEER, HASEEB L 458.0 ORTHOSTATIC HYPOTENSION 12/22/2011 JAMESON DO KIERAN K V58.69 LONG-TERM (CURRENT) USE OF OTHER MEDICATIONS 12/22/2011 V58.69 LONG-TERM ( CURRENT) USE OF OTHER MEDICATIONS 12/22/2011 TRINO VACA KIERAN K V58.69 LONG-TERM (CURRENT) USE OF OTHER MEDICATIONS 12/22/2011 JAMESON DO KIERAN K V58.69 LONG-TERM (CURRENT) USE OF OTHER MEDICATIONS 12/22/2011 TRINO VACA KIERAN K V58.69 LONG-TERM (CURRENT) USE OF OTHER MEDICATIONS 12/22/2011 JAMESON , KIERAN K V58.69 LONG-TERM (CURRENT) USE OF OTHER MEDICATIONS 12/22/2011 JAMESON DO KIERAN K V58.69 LONG-TERM (CURRENT) USE OF OTHER MEDICATIONS 12/22/2011 V58.69 LONG-TERM ( CURRENT) USE OF OTHER MEDICATIONS 12/22/2011 V58.69 LONG-TERM ( CURRENT) USE OF OTHER MEDICATIONS 12/22/2011 JAMESON DO KIERAN K V58.69 LONG-TERM (CURRENT) USE OF OTHER MEDICATIONS 12/22/2011 V58.69 LONG-TERM ( CURRENT) USE OF OTHER MEDICATIONS 12/22/2011 V58.69 LONG-TERM ( CURRENT) USE OF OTHER MEDICATIONS 12/22/2011 V58.69 LONG-TERM ( CURRENT) USE OF OTHER MEDICATIONS 12/22/2011 V58.69 LONG-TERM ( CURRENT) USE OF OTHER MEDICATIONS 12/22/2011 V58.69 LONG-TERM ( CURRENT) USE OF OTHER MEDICATIONS 12/22/2011 V58.69 LONG-TERM ( CURRENT) USE OF OTHER MEDICATIONS 12/22/2011 V58.69 LONG-TERM ( CURRENT) USE OF OTHER MEDICATIONS 12/22/2011 V58.69 LONG-TERM ( CURRENT) USE OF OTHER MEDICATIONS 12/22/2011 V58.69 LONG-TERM ( CURRENT) USE OF OTHER MEDICATIONS 12/22/2011 V58.69 LONG-TERM ( CURRENT) USE OF OTHER MEDICATIONS 12/22/2011 WADE CARVER MD V58.69 LONG-TERM (CURRENT) USE OF OTHER MEDICATIONS 12/22/2011 WADE CARVER MD V58.69 LONG-TERM (CURRENT) USE OF OTHER MEDICATIONS 12/22/2011 WADE CARVER MD V58.69 LONG-TERM (CURRENT) USE OF OTHER MEDICATIONS 12/22/2011 AZALEA JACOME MD V58.69 LONG-TERM (CURRENT) USE OF OTHER MEDICATIONS 12/22/2011 AZALEA JACOME MD V58.69 LONG-TERM (CURRENT) USE OF OTHER MEDICATIONS 12/22/2011 AZALEA JACOME MD V58.69 LONG-TERM (CURRENT) USE OF OTHER MEDICATIONS 12/22/2011 WADE CARVER MD V58.69 LONG-TERM (CURRENT) USE OF OTHER MEDICATIONS 12/22/2011 WADE CARVER MD V58.69 LONG-TERM (CURRENT) USE OF OTHER MEDICATIONS 12/22/2011 BAYLEE JAMESON DOA K V58.69 LONG-TERM (CURRENT) USE OF OTHER MEDICATIONS 12/22/2011 JAMESON DOBAYLEEA K V58.69 LONG-TERM (CURRENT) USE OF OTHER MEDICATIONS 12/22/2011 JAMESON DO KIREAN K V58.69 LONG-TERM (CURRENT) USE OF OTHER MEDICATIONS 12/22/2011 JAMESON DO KIERAN K V58.69 LONG-TERM (CURRENT) USE OF OTHER MEDICATIONS 12/22/2011 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 ENGINEER, HASEEB L V58.69 LONG-TERM (CURRENT) USE OF OTHER MEDICATIONS 12/22/2011 MADL LOGISTICS SYSTEM ENGINEER, HASEEB L V58.69 LONG-TERM (CURRENT) USE OF OTHER MEDICATIONS 12/22/2011 MADL LOGISTICS SYSTEM ENGINEER, HASEEB L V58.69 LONG-TERM (CURRENT) USE OF OTHER MEDICATIONS 12/22/2011 MADL LOGISTICS SYSTEM ENGINEER, HASEEB L V58.69 LONG-TERM (CURRENT) USE OF OTHER MEDICATIONS 12/22/2011 KIERAN JAMESON DO K V58.69 LONG-TERM (CURRENT) USE OF OTHER MEDICATIONS 12/22/2011 MADL LOGISTICS SYSTEM ENGINEER, HASEEB L V58.69 LONG-TERM (CURRENT) USE OF OTHER MEDICATIONS 12/22/2011 MADL LOGISTICS SYSTEM ENGINEER, HASEEB L V58.69 LONG-TERM (CURRENT) USE OF OTHER MEDICATIONS 12/22/2011 KIERAN JAMESON DO K V58.69 LONG-TERM (CURRENT) USE OF OTHER MEDICATIONS 12/22/2011 KIERAN JAMESON DO K V58.69 LONG-TERM (CURRENT) USE OF OTHER MEDICATIONS 12/22/2011 MADL LOGISTICS SYSTEM ENGINEER, HASEEB L V58.69 LONG-TERM (CURRENT) USE OF OTHER MEDICATIONS 12/22/2011 MADL LOGISTICS SYSTEM ENGINEER, HASEEB L V58.69 LONG-TERM (CURRENT) USE OF OTHER MEDICATIONS 12/22/2011 MADL LOGISTICS SYSTEM ENGINEER, HASEEB L V58.69 LONG-TERM (CURRENT) USE OF OTHER MEDICATIONS 12/22/2011 MADL LOGISTICS SYSTEM ENGINEER, HASEEB L V58.69 LONG-TERM (CURRENT) USE OF OTHER MEDICATIONS 12/26/2011 KIERAN JAMESON DO 681.02 Onychia And Paronychia Of Finger 12/26/2011 681.02 Onychia And Paronychia Of Finger 12/26/2011 KIERAN JAMESON DO 681.02 Onychia And Paronychia Of Finger 12/26/2011 KIERAN JAMESON DO 681.02 Onychia And Paronychia Of Finger 12/26/2011 JAMESON KIERAN VACA 681.02 Onychia And Paronychia Of Finger 12/26/2011 JAMESON KIERAN VACA 681.02 Onychia And Paronychia Of Finger 12/26/2011 KIERAN JAMESON DO 681.02 Onychia And Paronychia Of Finger 12/26/2011 681.02 Onychia And Paronychia Of Finger 12/26/2011 681.02 Onychia And Paronychia Of Finger 12/26/2011 KIERAN JAMESON DO 681.02 Onychia And Paronychia Of Finger 12/26/2011 681.02 Onychia And Paronychia Of Finger 12/26/2011 681.02 Onychia And Paronychia Of Finger 12/26/2011 681.02 Onychia And Paronychia Of Finger 12/26/2011 681.02 Onychia And Paronychia Of Finger 12/26/2011 681.02 Onychia And Paronychia Of Finger 12/26/2011 681.02 Onychia And Paronychia Of Finger 12/26/2011 681.02 Onychia And Paronychia Of Finger 12/26/2011 681.02 Onychia And Paronychia Of Finger 12/26/2011 681.02 Onychia And Paronychia Of Finger 12/26/2011 681.02 Onychia And Paronychia Of Finger 12/26/2011 WADE CARVER MD 681.02 Onychia And Paronychia Of Finger 12/26/2011 WADE CARVER MD 681.02 Onychia And Paronychia Of Finger 12/26/2011 WADE CARVER MD 681.02 Onychia And Paronychia Of Finger 12/26/2011 AZALEA JACOME MD 681.02 Onychia And Paronychia Of Finger 12/26/2011 AZALEA JACOME MD 681.02 Onychia And Paronychia Of Finger 12/26/2011 AZALEA JACOME MD 681.02 Onychia And Paronychia Of Finger 12/26/2011 WADE CARVER MD 681.02 Onychia And Paronychia Of Finger 12/26/2011 WADE CARVER MD 681.02 Onychia And Paronychia Of Finger 12/26/2011 KIERAN JAMESON DO 681.02 Onychia And Paronychia Of Finger 12/26/2011 JAMESON DO, KIERAN K 681.02 Onychia And Paronychia Of Finger 12/26/2011 JAMESON DO, KIERAN K 681.02 Onychia And Paronychia Of Finger 12/26/2011 JAMESON DO, KIERAN K 681.02 Onychia And Paronychia Of Finger 12/26/2011 MADL LOGISTICS SYSTEM ENGINEER, HASEEB L 681.02 Onychia And Paronychia Of Finger 12/26/2011 MADL LOGISTICS SYSTEM ENGINEER, HASEEB L 681.02 Onychia And Paronychia Of Finger 12/26/2011 MADL LOGISTICS SYSTEM ENGINEER, HASEEB L 681.02 Onychia And Paronychia Of Finger 12/26/2011 MADL LOGISTICS SYSTEM ENGINEER, HASEEB L 681.02 Onychia And Paronychia Of Finger 12/26/2011 JAMESON DO, KIERAN K 681.02 Onychia And Paronychia Of Finger 12/26/2011 MADL LOGISTICS SYSTEM ENGINEER, HASEEB L 681.02 Onychia And Paronychia Of Finger 12/26/2011 MADL LOGISTICS SYSTEM ENGINEER, HASEEB L 681.02 Onychia And Paronychia Of Finger 12/26/2011 JAMESON DO, KIERAN K 681.02 Onychia And Paronychia Of Finger 12/26/2011 JAMESON DO, KIERAN K 681.02 Onychia And Paronychia Of Finger 12/26/2011 MADL LOGISTICS SYSTEM ENGINEER, HASEEB L 681.02 Onychia And Paronychia Of Finger 12/26/2011 MADL LOGISTICS SYSTEM ENGINEER, HASEEB L 681.02 Onychia And Paronychia Of Finger 12/26/2011 MADL LOGISTICS SYSTEM ENGINEER, HASEEB L 681.02 Onychia And Paronychia Of Finger 12/26/2011 MADL LOGISTICS SYSTEM ENGINEER, HASEEB L 681.02 Onychia And Paronychia Of Finger 01/17/2012 JAMESON DOKIERAN K 786.50 Chest Pain 01/17/2012 786.50 Chest Pain 01/17/2012 JAMESON DO KIERAN K 786.50 Chest Pain 01/17/2012 JAMESON DO, KIERAN K 786.50 Chest Pain 01/17/2012 JAMESON DO, KIERAN K 786.50 Chest Pain 01/17/2012 JAMESON DO, KIERAN K 786.50 Chest Pain 01/17/2012 JAMESON DO, KIERAN K 786.50 Chest Pain 01/17/2012 786.50 Chest Pain 01/17/2012 786.50 Chest Pain 01/17/2012 JAMESON DO, KIERAN K 786.50 Chest Pain 01/17/2012 786.50 Chest Pain 01/17/2012 786.50 Chest Pain 01/17/2012 786.50 Chest Pain 01/17/2012 786.50 Chest Pain 01/17/2012 786.50 Chest Pain 01/17/2012 786.50 Chest Pain 01/17/2012 786.50 Chest Pain 01/17/2012 786.50 Chest Pain 01/17/2012 786.50 Chest Pain 01/17/2012 786.50 Chest Pain 01/17/2012 WEN VEGA, WADE Ramírez 786.50 Chest Pain 01/17/2012 WEN VEGA, WADE Ramírez 786.50 Chest Pain 01/17/2012 WEN VEGA, AWDE Ramírez 786.50 Chest Pain 01/17/2012 NAA VEGA, AZALEA 786.50 Chest Pain 01/17/2012 NAA VEGA, AZALEA 786.50 Chest Pain 01/17/2012 NAA VEGA, AZALEA 786.50 Chest Pain 01/17/2012 WEN VEGA, WADE Ramírez 786.50 Chest Pain 01/17/2012 WEN VEGA, WADE Ramírez 786.50 Chest Pain 01/17/2012 JAMESON DO, KIERAN K 786.50 Chest Pain 01/17/2012 JAMESON DO, KIERAN K 786.50 Chest Pain 01/17/2012 JAMESON DO, KIERAN K 786.50 Chest Pain 01/17/2012 JAMESON DO, KIERAN K 786.50 Chest Pain 01/17/2012 MADL LOGISTICS SYSTEM ENGINEER, HASEEB L 786.50 Chest Pain 01/17/2012 MADL LOGISTICS SYSTEM ENGINEER, HASEEB L 786.50 Chest Pain 01/17/2012 MADL LOGISTICS SYSTEM ENGINEER, HASEEB L 786.50 Chest Pain 01/17/2012 MADL LOGISTICS SYSTEM ENGINEER, HASEEB L 786.50 Chest Pain 01/17/2012 JAMESON DO, KIERAN K 786.50 Chest Pain 01/17/2012 MADL LOGISTICS SYSTEM ENGINEER, HASEEB L 786.50 Chest Pain 01/17/2012 MADL LOGISTICS SYSTEM ENGINEER, HASEEB L 786.50 Chest Pain 01/17/2012 JAMESON DO, KIERAN K 786.50 Chest Pain 01/17/2012 JAMESON DO, KIERAN K 786.50 Chest Pain 01/17/2012 MADL LOGISTICS SYSTEM ENGINEER, HASEEB L 786.50 Chest Pain 01/17/2012 MADL LOGISTICS SYSTEM ENGINEER, HASEEB L 786.50 Chest Pain 01/17/2012 MADL LOGISTICS SYSTEM ENGINEER, HASEEB L 786.50 Chest Pain 01/17/2012 MADL LOGISTICS SYSTEM ENGINEER, HASEEB L 786.50 Chest Pain 02/06/2012 Ot 726.5 ENTHESOPATHY OF HIP 02/06/2012 Ot V57.1 PHYSICAL THERAPY NEC 02/08/2012 Ot 726.5 ENTHESOPATHY OF HIP 02/08/2012 Ot V57.1 PHYSICAL THERAPY NEC 03/18/2012 JAMESON DO KIERAN K 527.7 DISTURBANCE OF SALIVARY SECRETION 03/18/2012 JAMESON DO KIERAN K 787.02 Nausea Alone 03/18/2012 JAMESON DO, KIERAN K V04.81 FLU DX (MEDICARE ONLY) 03/18/2012 527.7 DISTURBANCE OF SALIVARY SECRETION 03/18/2012 787.02 Nausea Alone 03/18/2012 V04.81 Flu Dx ( medicare Only) 03/18/2012 JAMESON DO, KIERAN K 527.7 DISTURBANCE OF SALIVARY SECRETION 03/18/2012 JAMESON DO, KIERAN K 787.02 Nausea Alone 03/18/2012 JAMESON DO, KIERAN K V04.81 Flu Dx (medicare Only) 03/18/2012 JAMESON DO, KIERAN K 527.7 DISTURBANCE OF SALIVARY SECRETION 03/18/2012 JAMESON DO, KIERAN K 787.02 Nausea Alone 03/18/2012 JAMESON DO, KIERAN K V04.81 Flu Dx (medicare Only) 03/18/2012 JAMESON DO, KIERAN K 527.7 DISTURBANCE OF SALIVARY SECRETION 03/18/2012 JAMESON DO, KIERAN K 787.02 Nausea Alone 03/18/2012 JAMESON DO, KIERAN K V04.81 Flu Dx (medicare Only) 03/18/2012 JAMESON DO, KIERAN K 527.7 DISTURBANCE OF SALIVARY SECRETION 03/18/2012 JAMESON DO, KIERAN K 787.02 Nausea Alone 03/18/2012 JAMESON DO, KIERAN K V04.81 Flu Dx (medicare Only) 03/18/2012 TRINO VACA KIERAN K 527.7 DISTURBANCE OF SALIVARY SECRETION 03/18/2012 TRINO DOKIERAN K 787.02 Nausea Alone 03/18/2012 KIERAN JAMESON DO K V04.81 Flu Dx (medicare Only) 03/18/2012 527.7 DISTURBANCE OF SALIVARY SECRETION 03/18/2012 787.02 Nausea Alone 03/18/2012 V04.81 Flu Dx ( medicare Only) 03/18/2012 527.7 DISTURBANCE OF SALIVARY SECRETION 03/18/2012 787.02 Nausea Alone 03/18/2012 V04.81 Flu Dx ( medicare Only) 03/18/2012 JAMESON DOKIERAN K 527.7 DISTURBANCE OF SALIVARY SECRETION 03/18/2012 JAMESON DOKIERAN K 787.02 Nausea Alone 03/18/2012 TRINO VACA KIERAN K V04.81 FLU DX (MEDICARE ONLY) 03/18/2012 527.7 DISTURBANCE OF SALIVARY SECRETION 03/18/2012 787.02 Nausea Alone 03/18/2012 V04.81 Flu Dx ( medicare Only) 03/18/2012 527.7 DISTURBANCE OF SALIVARY SECRETION 03/18/2012 787.02 Nausea Alone 03/18/2012 V04.81 Flu Dx ( medicare Only) 03/18/2012 527.7 DISTURBANCE OF SALIVARY SECRETION 03/18/2012 787.02 Nausea Alone 03/18/2012 V04.81 Flu Dx ( medicare Only) 03/18/2012 527.7 DISTURBANCE OF SALIVARY SECRETION 03/18/2012 787.02 Nausea Alone 03/18/2012 V04.81 Flu Dx ( medicare Only) 03/18/2012 527.7 DISTURBANCE OF SALIVARY SECRETION 03/18/2012 787.02 Nausea Alone 03/18/2012 V04.81 Flu Dx ( medicare Only) 03/18/2012 527.7 DISTURBANCE OF SALIVARY SECRETION 03/18/2012 787.02 Nausea Alone 03/18/2012 V04.81 Flu Dx ( medicare Only) 03/18/2012 527.7 DISTURBANCE OF SALIVARY SECRETION 03/18/2012 787.02 Nausea Alone 03/18/2012 V04.81 Flu Dx ( medicare Only) 03/18/2012 527.7 DISTURBANCE OF SALIVARY SECRETION 03/18/2012 787.02 Nausea Alone 03/18/2012 V04.81 Flu Dx ( medicare Only) 03/18/2012 527.7 DISTURBANCE OF SALIVARY SECRETION 03/18/2012 787.02 Nausea Alone 03/18/2012 V04.81 Flu Dx ( medicare Only) 03/18/2012 527.7 DISTURBANCE OF SALIVARY SECRETION 03/18/2012 787.02 Nausea Alone 03/18/2012 V04.81 Flu Dx ( medicare Only) 03/18/2012 WADE CARVER MD 527.7 DISTURBANCE OF SALIVARY SECRETION 03/18/2012 WADE CARVER MD 787.02 Nausea Alone 03/18/2012 WADE CARVER MD V04.81 Flu Dx (medicare Only) 03/18/2012 WADE CARVER MD 527.7 DISTURBANCE OF SALIVARY SECRETION 03/18/2012 WADE CARVER MD 787.02 Nausea Alone 03/18/2012 WADE CARVER MD V04.81 Flu Dx (medicare Only) 03/18/2012 WADE CARVER MD 527.7 DISTURBANCE OF SALIVARY SECRETION 03/18/2012 WADE CARVER MD 787.02 Nausea Alone 03/18/2012 WADE CARVER MD V04.81 Flu Dx (medicare Only) 03/18/2012 AZALEA JACOME MD 527.7 DISTURBANCE OF SALIVARY SECRETION 03/18/2012 AZALEA JACOME MD 787.02 Nausea Alone 03/18/2012 AZALEA JACOME MD V04.81 Flu Dx (medicare Only) 03/18/2012 AZALEA JACOME MD 527.7 DISTURBANCE OF SALIVARY SECRETION 03/18/2012 AZALEA JACOME MD 787.02 Nausea Alone 03/18/2012 AZALEA JACOME MD4.81 Flu Dx (medicare Only) 03/18/2012 AZALEA JACOME MD 527.7 DISTURBANCE OF SALIVARY SECRETION 03/18/2012 AZALEA JACOME MD 787.02 Nausea Alone 03/18/2012 AZALEA JACOME MD4.81 Flu Dx (medicare Only) 03/18/2012 WADE CARVER MD 527.7 DISTURBANCE OF SALIVARY SECRETION 03/18/2012 WADE CARVER MD 787.02 Nausea Alone 03/18/2012 WADE CARVER MD V04.81 Flu Dx (medicare Only) 03/18/2012 WADE CARVER MD 527.7 DISTURBANCE OF SALIVARY SECRETION 03/18/2012 WADE CARVER MD 787.02 Nausea Alone 03/18/2012 WADE CARVER MD V04.81 Flu Dx (medicare Only) 03/18/2012 JAMESON DO, KIERAN K 527.7 DISTURBANCE OF SALIVARY SECRETION 03/18/2012 JAMESON DO, KIERAN K 787.02 Nausea Alone 03/18/2012 JAMESON DO, KIERAN K V04.81 Flu Dx (medicare Only) 03/18/2012 JAMESON DO, KIERAN K 527.7 DISTURBANCE OF SALIVARY SECRETION 03/18/2012 JAMESON DO, KIERAN K 787.02 Nausea Alone 03/18/2012 JAMESON DO, KIERAN K V04.81 Flu Dx (medicare Only) 03/18/2012 JAMESON DO, KIERAN K 527.7 DISTURBANCE OF SALIVARY SECRETION 03/18/2012 JAMESON DO, KIERAN K 787.02 Nausea Alone 03/18/2012 JAMESON DO, KIERAN K V04.81 Flu Dx (medicare Only) 03/18/2012 JAMESON DO, KIERAN K 527.7 DISTURBANCE OF SALIVARY SECRETION 03/18/2012 JAMESON DO, KIERAN K 787.02 Nausea Alone 03/18/2012 JAMESON DO, KIERAN K V04.81 Flu Dx (medicare Only) 03/18/2012 MADL LOGISTICS SYSTEM ENGINEER, HASEEB L 527.7 DISTURBANCE OF SALIVARY SECRETION 03/18/2012 MADL LOGISTICS SYSTEM ENGINEER, HASEEB L 787.02 Nausea Alone 03/18/2012 MADL LOGISTICS SYSTEM ENGINEER, HASEEB L V04.81 Flu Dx (medicare Only) 03/18/2012 MADL LOGISTICS SYSTEM ENGINEER, HASEEB L 527.7 DISTURBANCE OF SALIVARY SECRETION 03/18/2012 MADL LOGISTICS SYSTEM ENGINEER, HASEEB L 787.02 Nausea Alone 03/18/2012 MADL LOGISTICS SYSTEM ENGINEER, HASEEB L V04.81 Flu Dx (medicare Only) 03/18/2012 MADL LOGISTICS SYSTEM ENGINEER, HASEEB L 527.7 DISTURBANCE OF SALIVARY SECRETION 03/18/2012 MADL LOGISTICS SYSTEM ENGINEER, HASEEB L 787.02 Nausea Alone 03/18/2012 MADL LOGISTICS SYSTEM ENGINEER, HASEEB L V04.81 Flu Dx (medicare Only) 03/18/2012 MADL LOGISTICS SYSTEM ENGINEER, HASEEB L 527.7 DISTURBANCE OF SALIVARY SECRETION 03/18/2012 MADL LOGISTICS SYSTEM ENGINEER, HASEEB L 787.02 Nausea Alone 03/18/2012 MADL LOGISTICS SYSTEM ENGINEER, HASEEB L V04.81 Flu Dx (medicare Only) 03/18/2012 JAMESON DO, KIERAN K 527.7 DISTURBANCE OF SALIVARY SECRETION 03/18/2012 JAMESON DO, KIERAN K 787.02 Nausea Alone 03/18/2012 JAMESON DO, KIERAN K V04.81 Flu Dx (medicare Only) 03/18/2012 MADL LOGISTICS SYSTEM ENGINEER, HASEEB L 527.7 DISTURBANCE OF SALIVARY SECRETION 03/18/2012 MADL LOGISTICS SYSTEM ENGINEER, HASEEB L 787.02 Nausea Alone 03/18/2012 MADL LOGISTICS SYSTEM ENGINEER, HASEEB L V04.81 Flu Dx (medicare Only) 03/18/2012 MADL LOGISTICS SYSTEM ENGINEER, HASEEB L 527.7 DISTURBANCE OF SALIVARY SECRETION 03/18/2012 MADL LOGISTICS SYSTEM ENGINEER, HASEEB L 787.02 Nausea Alone 03/18/2012 MADL LOGISTICS SYSTEM ENGINEER, HASEEB L V04.81 Flu Dx (medicare Only) 03/18/2012 JAMESON DO, KIERAN K 527.7 DISTURBANCE OF SALIVARY SECRETION 03/18/2012 JAMESON DO, KIERAN K 787.02 Nausea Alone 03/18/2012 JAMESON DO, KIERAN K V04.81 Flu Dx (medicare Only) 03/18/2012 JAMESON DO, KIERAN K 527.7 DISTURBANCE OF SALIVARY SECRETION 03/18/2012 JAMESON DO, KIERAN K 787.02 Nausea Alone 03/18/2012 JAMESON DO, KIERAN K V04.81 Flu Dx (medicare Only) 03/18/2012 MADL LOGISTICS SYSTEM ENGINEER, HASEEB L 527.7 DISTURBANCE OF SALIVARY SECRETION 03/18/2012 MADL LOGISTICS SYSTEM ENGINEER, HASEEB L 787.02 Nausea Alone 03/18/2012 MADL LOGISTICS SYSTEM ENGINEER, HASEEB L V04.81 Flu Dx (medicare Only) 03/18/2012 MADL LOGISTICS SYSTEM ENGINEER, HASEEB L 527.7 DISTURBANCE OF SALIVARY SECRETION 03/18/2012 MADL LOGISTICS SYSTEM ENGINEER, HASEEB L 787.02 Nausea Alone 03/18/2012 MADL LOGISTICS SYSTEM ENGINEER, HASEEB L V04.81 Flu Dx (medicare Only) 03/18/2012 MADL LOGISTICS SYSTEM ENGINEER, HASEEB L 527.7 DISTURBANCE OF SALIVARY SECRETION 03/18/2012 MADL LOGISTICS SYSTEM ENGINEER, HASEEB L 787.02 Nausea Alone 03/18/2012 MADL LOGISTICS SYSTEM ENGINEER, HASEEB L V04.81 Flu Dx (medicare Only) 03/18/2012 MADL LOGISTICS SYSTEM ENGINEER, HASEEB L 527.7 DISTURBANCE OF SALIVARY SECRETION 03/18/2012 MADL LOGISTICS SYSTEM ENGINEER, HASEEB L 787.02 Nausea Alone 03/18/2012 MADL LOGISTICS SYSTEM ENGINEER, HASEEB L V04.81 Flu Dx (medicare Only) 06/07/2012 786.50 CHEST PAIN 06/07/2012 JAMESON DO, KIERAN K 786.50 CHEST PAIN 06/07/2012 JAMESON DO, KIERAN K 786.50 CHEST PAIN 06/07/2012 JAMESON DO, KIERAN K 786.50 CHEST PAIN 06/07/2012 JAMESON DO, KIERAN K 786.50 Chest Pain 06/07/2012 JAMESON DO, KIERAN K 786.50 Chest Pain 06/07/2012 786.50 Chest Pain 06/07/2012 786.50 Chest Pain 06/07/2012 786.50 Chest Pain 06/07/2012 786.50 Chest Pain 06/07/2012 786.50 Chest Pain 06/07/2012 786.50 Chest Pain 06/07/2012 786.50 Chest Pain 06/07/2012 786.50 Chest Pain 06/07/2012 786.50 Chest Pain 06/07/2012 786.50 Chest Pain 06/07/2012 786.50 Chest Pain 06/07/2012 786.50 Chest Pain 06/07/2012 WADE CARVER MD 786.50 Chest Pain 06/07/2012 WADE CARVER MD 786.50 Chest Pain 06/07/2012 WADE CARVER MD 786.50 Chest Pain 06/07/2012 AZALEA JACOME MD 786.50 Chest Pain 06/07/2012 NAA VEGA, AZALEA 786.50 Chest Pain 06/07/2012 NAA VEGA, AZALEA 786.50 Chest Pain 06/07/2012 WADE CARVER MD 786.50 Chest Pain 06/07/2012 WADE CARVER MD 786.50 Chest Pain 06/07/2012 JAMESON DO KIERAN K 786.50 Chest Pain 06/07/2012 JAMESON DO, KIERAN K 786.50 Chest Pain 06/07/2012 JAMESON DO, KIERAN K 786.50 Chest Pain 06/07/2012 JAMESON DO, KIERAN K 786.50 Chest Pain 06/07/2012 MADL LOGISTICS SYSTEM ENGINEER, HASEEB L 786.50 Chest Pain 06/07/2012 MADL LOGISTICS SYSTEM ENGINEER, HASEEB L 786.50 Chest Pain 06/07/2012 MADL LOGISTICS SYSTEM ENGINEER, HASEEB L 786.50 Chest Pain 06/07/2012 MADL LOGISTICS SYSTEM ENGINEER, HASEEB L 786.50 Chest Pain 06/07/2012 JAMESON DO, KIERAN K 786.50 Chest Pain 06/07/2012 MADL LOGISTICS SYSTEM ENGINEER, HASEEB L 786.50 Chest Pain 06/07/2012 MADL LOGISTICS SYSTEM ENGINEER, HASEEB L 786.50 Chest Pain 06/07/2012 JAMESON DO, KIERAN K 786.50 Chest Pain 06/07/2012 JAMESON DO, KIERAN K 786.50 Chest Pain 06/07/2012 MADL LOGISTICS SYSTEM ENGINEER, HASEEB L 786.50 Chest Pain 06/07/2012 MADL LOGISTICS SYSTEM ENGINEER, HASEEB L 786.50 Chest Pain 06/07/2012 MADL LOGISTICS SYSTEM ENGINEER, HASEEB L 786.50 Chest Pain 06/07/2012 MADL LOGISTICS SYSTEM ENGINEER, HASEEB L 786.50 Chest Pain 06/14/2012 JAMESON DO, KIERAN K 784.1 THROAT PAIN 06/14/2012 JAMESON DO, KIERAN K 784.1 THROAT PAIN 06/14/2012 JAMESON DO, KIERAN K 784.1 THROAT PAIN 06/14/2012 JAMESON DO, KIERAN K 784.1 Throat Pain 06/14/2012 JAMESON DO, KIERAN K 784.1 Throat Pain 06/14/2012 784.1 Throat Pain 06/14/2012 784.1 Throat Pain 06/14/2012 784.1 Throat Pain 06/14/2012 784.1 Throat Pain 06/14/2012 784.1 Throat Pain 06/14/2012 784.1 Throat Pain 06/14/2012 784.1 Throat Pain 06/14/2012 784.1 Throat Pain 06/14/2012 784.1 Throat Pain 06/14/2012 784.1 Throat Pain 06/14/2012 784.1 Throat Pain 06/14/2012 784.1 Throat Pain 06/14/2012 WEN VEGA, WADE Ramírez 784.1 Throat Pain 06/14/2012 WADE CARVER MD 784.1 Throat Pain 06/14/2012 WADE CARVER MD 784.1 Throat Pain 06/14/2012 AZALEA JACOME MD 784.1 Throat Pain 06/14/2012 AZALEA JACOME MD 784.1 Throat Pain 06/14/2012 AZALEA JACOME MD 784.1 Throat Pain 06/14/2012 WEN VEGA, WADE Ramírez 784.1 Throat Pain 06/14/2012 WADE CARVER MD 784.1 Throat Pain 06/14/2012 JAMESON DO, KIERAN K 784.1 Throat Pain 06/14/2012 JAMESON DO, KIERAN K 784.1 Throat Pain 06/14/2012 JAMESON DO, KIERAN K 784.1 Throat Pain 06/14/2012 JAMESON DO, KIERAN K 784.1 Throat Pain 06/14/2012 [employer] ENGINEER, HASEEB L 784.1 Throat Pain 06/14/2012 M[employer] LOGIST[employer] SYSTEM ENGINEER, HASEEB L 784.1 Throat Pain 06/14/2012 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[employer] 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 ENGINEER, HASEEB L 784.1 Throat Pain 06/14/2012 M[employer]IST[employer] SYSTEM ENGINEER, HASEEB L 784.1 Throat Pain 06/14/2012 JAMESON DO, KIERAN K 784.1 Throat Pain 06/14/2012 M[employer] SYSTEM ENGINEER, HASEEB L 784.1 Throat Pain 06/14/2012 M[employer] SYSTEM ENGINEER, HASEEB L 784.1 Throat Pain 06/14/2012 JAMESON DO, KIERAN K 784.1 Throat Pain 06/14/2012 JAMESON DO, KIERAN K 784.1 Throat Pain 06/14/2012 M[employer]IST[employer] SYSTEM ENGINEER, HASEEB L 784.1 Throat Pain 06/14/2012 MAD[employer]ISTICS SYSTEM ENGINEER, HASEEB L 784.1 Throat Pain 06/14/2012 MAD[employer]ISTICS SYSTEM ENGINEER, HASEEB L 784.1 Throat Pain 06/14/2012 M[employer] SYSTEM ENGINEER, HASEEB L 784.1 Throat Pain 06/24/2012 JAMESON DO, KEIRAN K 530.81 GERD 06/24/2012 JAMESON DO, KIERAN K 530.81 GERD 06/24/2012 JAMESON DO, KIERAN K 530.81 GERD 06/24/2012 JAMESON DO, KIERAN K 530.81 GERD 06/24/2012 530.81 GERD 06/24/2012 530.81 GERD 06/24/2012 530.81 GERD 06/24/2012 530.81 GERD 06/24/2012 530.81 GERD 06/24/2012 530.81 GERD 06/24/2012 530.81 GERD 06/24/2012 530.81 GERD 06/24/2012 530.81 GERD 06/24/2012 530.81 GERD 06/24/2012 530.81 GERD 06/24/2012 530.81 GERD 06/24/2012 WEN VEGA, WADE Ramírez 530.81 GERD 06/24/2012 WEN VEGA, WADE Ramírez 530.81 GERD 06/24/2012 WEN VEGA, WADE Ramírez 530.81 GERD 06/24/2012 NAA VEGA, AZALEA 530.81 GERD 06/24/2012 NAA VEGA, AZALEA 530.81 GERD 06/24/2012 NAA VEGA, AZALEA 530.81 GERD 06/24/2012 WEN VEGA, WADE Ramírez 530.81 GERD 06/24/2012 WEN VEGA, WADE Ramírez 530.81 GERD 06/24/2012 JAMESON DO, KIERAN K 530.81 GERD 06/24/2012 JAMESON DO, KIERAN K 530.81 GERD 06/24/2012 JAMESON DO, KIERAN K 530.81 GERD 06/24/2012 JAMESON DO, KIERAN K 530.81 GERD 06/24/2012 M[employer] SYSTEM ENGINEER, HASEEB L 530.81 GERD 06/24/2012 M[employer] SYSTEM ENGINEER, HASEEB L 530.81 GERD 06/24/2012 M[employer] SYSTEM ENGINEER, HASEEB L 530.81 GERD 06/24/2012 M[employer] SYSTEM ENGINEER, HASEEB L 530.81 GERD 06/24/2012 JAMESON DO, KIERAN K 530.81 GERD 06/24/2012 M[employer] SYSTEM ENGINEER, HASEEB L 530.81 GERD 06/24/2012 [employer] SYSTEM ENGINEER, HASEEB L 530.81 GERD 06/24/2012 JAMESON DO, KIERAN K 530.81 GERD 06/24/2012 JAMESON DO, KIERAN K 530.81 GERD 06/24/2012 [employer] SYSTEM ENGINEER, HASEEB L 530.81 GERD 06/24/2012 M[employer] SYSTEM ENGINEER, HASEEB L 530.81 GERD 06/24/2012 [employer] SYSTEM ENGINEER, HASEEB L 530.81 GERD 06/24/2012 M[employer] SYSTEM ENGINEER, HASEEB L 530.81 GERD 07/10/2012 Ot 531.90 STOMACH ULCER NOS 07/10/2012 Ot 553.3 DIAPHRAGMATIC HERNIA 08/02/2012 KIERAN JAMESON DO 461.9 SINUSITIS ACUTE 08/02/2012 KIERAN JAMESON DO 794.5 Thyroid Function Tests Nonspecific Abnormal Findings 08/02/2012 KIERAN JAMESON DO 461.9 SINUSITIS ACUTE 08/02/2012 KIERAN JAMESON DO 794.5 Thyroid Function Tests Nonspecific Abnormal Findings 08/02/2012 461.9 SINUSITIS ACUTE 08/02/2012 794.5 Thyroid Function Tests Nonspecific Abnormal Findings 08/02/2012 461.9 SINUSITIS ACUTE 08/02/2012 794.5 Thyroid Function Tests Nonspecific Abnormal Findings 08/02/2012 461.9 SINUSITIS ACUTE 08/02/2012 794.5 Thyroid Function Tests Nonspecific Abnormal Findings 08/02/2012 461.9 SINUSITIS ACUTE 08/02/2012 794.5 Thyroid Function Tests Nonspecific Abnormal Findings 08/02/2012 461.9 SINUSITIS ACUTE 08/02/2012 794.5 Thyroid Function Tests Nonspecific Abnormal Findings 08/02/2012 461.9 SINUSITIS ACUTE 08/02/2012 794.5 Thyroid Function Tests Nonspecific Abnormal Findings 08/02/2012 461.9 SINUSITIS ACUTE 08/02/2012 794.5 Thyroid Function Tests Nonspecific Abnormal Findings 08/02/2012 461.9 SINUSITIS ACUTE 08/02/2012 794.5 Thyroid Function Tests Nonspecific Abnormal Findings 08/02/2012 461.9 SINUSITIS ACUTE 08/02/2012 794.5 Thyroid Function Tests Nonspecific Abnormal Findings 08/02/2012 461.9 SINUSITIS ACUTE 08/02/2012 794.5 Thyroid Function Tests Nonspecific Abnormal Findings 08/02/2012 461.9 SINUSITIS ACUTE 08/02/2012 794.5 Thyroid Function Tests Nonspecific Abnormal Findings 08/02/2012 461.9 SINUSITIS ACUTE 08/02/2012 794.5 Thyroid Function Tests Nonspecific Abnormal Findings 08/02/2012 WADE CARVER MD 461.9 SINUSITIS ACUTE 08/02/2012 WADE CARVER MD 794.5 Thyroid Function Tests Nonspecific Abnormal Findings 08/02/2012 WADE CARVER MD 461.9 SINUSITIS ACUTE 08/02/2012 WADE CARVER MD 794.5 Thyroid Function Tests Nonspecific Abnormal Findings 08/02/2012 WADE CARVER MD 461.9 SINUSITIS ACUTE 08/02/2012 WADE CARVER MD 794.5 Thyroid Function Tests Nonspecific Abnormal Findings 08/02/2012 AZALEA JACOME MD 461.9 SINUSITIS ACUTE 08/02/2012 AZALEA JACOME MD 794.5 Thyroid Function Tests Nonspecific Abnormal Findings 08/02/2012 AZALEA JACOME MD 461.9 SINUSITIS ACUTE 08/02/2012 AZALEA JACOME MD 794.5 Thyroid Function Tests Nonspecific Abnormal Findings 08/02/2012 AZALEA JACOME MD 461.9 SINUSITIS ACUTE 08/02/2012 AZALEA JACOME MD 794.5 Thyroid Function Tests Nonspecific Abnormal Findings 08/02/2012 WADE CARVER MD 461.9 SINUSITIS ACUTE 08/02/2012 WADE CARVER MD 794.5 Thyroid Function Tests Nonspecific Abnormal Findings 08/02/2012 WADE CARVER MD 461.9 SINUSITIS ACUTE 08/02/2012 WADE CARVER MD 794.5 Thyroid Function Tests Nonspecific Abnormal Findings 08/02/2012 JAMESON DO KIERAN K 461.9 SINUSITIS ACUTE 08/02/2012 JAMESON DO KIERAN K 794.5 Thyroid Function Tests Nonspecific Abnormal Findings 08/02/2012 JAMESON DO, KIERAN K 461.9 SINUSITIS ACUTE 08/02/2012 JAMESON DO, KIERAN K 794.5 Thyroid Function Tests Nonspecific Abnormal Findings 08/02/2012 JAMESON DO, KIERAN K 461.9 SINUSITIS ACUTE 08/02/2012 JAMESON DO, KIERAN K 794.5 Thyroid Function Tests Nonspecific Abnormal Findings 08/02/2012 JAMESON DO, KIERAN K 461.9 SINUSITIS ACUTE 08/02/2012 JAMESON DO, KIERAN K 794.5 Thyroid Function Tests Nonspecific Abnormal Findings 08/02/2012 MADL LOGISTICS SYSTEM ENGINEER, HASEEB L 461.9 SINUSITIS ACUTE 08/02/2012 MADL LOGISTICS SYSTEM ENGINEER, HASEEB L 794.5 Thyroid Function Tests Nonspecific Abnormal Findings 08/02/2012 MADL LOGISTICS SYSTEM ENGINEER, HASEEB L 461.9 SINUSITIS ACUTE 08/02/2012 MADL LOGISTICS SYSTEM ENGINEER, HASEEB L 794.5 Thyroid Function Tests Nonspecific Abnormal Findings 08/02/2012 MADL LOGISTICS SYSTEM ENGINEER, HASEEB L 461.9 SINUSITIS ACUTE 08/02/2012 MADL LOGISTICS SYSTEM ENGINEER, HASEEB L 794.5 Thyroid Function Tests Nonspecific Abnormal Findings 08/02/2012 MADL LOGISTICS SYSTEM ENGINEER, HASEEB L 461.9 SINUSITIS ACUTE 08/02/2012 MADL LOGISTICS SYSTEM ENGINEER, HASEEB L 794.5 Thyroid Function Tests Nonspecific Abnormal Findings 08/02/2012 JAMESON DO, KIERAN K 461.9 SINUSITIS ACUTE 08/02/2012 JAMESON DO, KIERAN K 794.5 Thyroid Function Tests Nonspecific Abnormal Findings 08/02/2012 MADL LOGISTICS SYSTEM ENGINEER, HASEEB L 461.9 SINUSITIS ACUTE 08/02/2012 MADL LOGISTICS SYSTEM ENGINEER, HASEEB L 794.5 Thyroid Function Tests Nonspecific Abnormal Findings 08/02/2012 MADL LOGISTICS SYSTEM ENGINEER, HASEEB L 461.9 SINUSITIS ACUTE 08/02/2012 MADL LOGISTICS SYSTEM ENGINEER, HASEEB L 794.5 Thyroid Function Tests Nonspecific Abnormal Findings 08/02/2012 JAEMSON DO, KIERAN K 461.9 SINUSITIS ACUTE 08/02/2012 JAMESON DO, KIERAN K 794.5 Thyroid Function Tests Nonspecific Abnormal Findings 08/02/2012 JAMESON DO, KIERAN K 461.9 SINUSITIS ACUTE 08/02/2012 JAMESON DO, KIERAN K 794.5 Thyroid Function Tests Nonspecific Abnormal Findings 08/02/2012 MADL LOGISTICS SYSTEM ENGINEER, HASEEB L 461.9 SINUSITIS ACUTE 08/02/2012 MADL LOGISTICS SYSTEM ENGINEER, HASEEB L 794.5 Thyroid Function Tests Nonspecific Abnormal Findings 08/02/2012 MADL LOGISTICS SYSTEM ENGINEER, HASEEB L 461.9 SINUSITIS ACUTE 08/02/2012 MADL LOGISTICS SYSTEM ENGINEER, HASEEB L 794.5 Thyroid Function Tests Nonspecific Abnormal Findings 08/02/2012 MADL LOGISTICS SYSTEM ENGINEER, HASEEB L 461.9 SINUSITIS ACUTE 08/02/2012 MADL LOGISTICS SYSTEM ENGINEER, HASEEB L 794.5 Thyroid Function Tests Nonspecific Abnormal Findings 08/02/2012 MADL LOGISTICS SYSTEM ENGINEER, HASEEB L 461.9 SINUSITIS ACUTE 08/02/2012 MADL LOGISTICS SYSTEM ENGINEER, HASEEB L 794.5 Thyroid Function Tests Nonspecific Abnormal Findings 08/19/2012 JAMESON DO, KIERAN K 536.8 DYSPEPSIA 08/19/2012 536.8 DYSPEPSIA 08/19/2012 536.8 DYSPEPSIA 08/19/2012 536.8 DYSPEPSIA 08/19/2012 536.8 DYSPEPSIA 08/19/2012 536.8 DYSPEPSIA 08/19/2012 536.8 DYSPEPSIA 08/19/2012 536.8 DYSPEPSIA 08/19/2012 536.8 DYSPEPSIA 08/19/2012 536.8 DYSPEPSIA 08/19/2012 536.8 DYSPEPSIA 08/19/2012 536.8 DYSPEPSIA 08/19/2012 536.8 DYSPEPSIA 08/19/2012 WEN VEGA, WADE Ramírez 536.8 DYSPEPSIA 08/19/2012 WEN VEGA, WADE Ramírez 536.8 DYSPEPSIA 08/19/2012 WADE CARVER MD 536.8 DYSPEPSIA 08/19/2012 NAA VEGA, AZALEA 536.8 DYSPEPSIA 08/19/2012 NAA VEGA, AZALEA 536.8 DYSPEPSIA 08/19/2012 NAA VEGA, AZALEA 536.8 DYSPEPSIA 08/19/2012 WEN VEGA, WADE Ramírez 536.8 DYSPEPSIA 08/19/2012 WEN VEGA, WADE Ramírez 536.8 DYSPEPSIA 08/19/2012 JAMESON DO, KIERAN K 536.8 DYSPEPSIA 08/19/2012 JAMESON DO, KIERAN K 536.8 DYSPEPSIA 08/19/2012 JAMESON DO, KIERAN K 536.8 DYSPEPSIA 08/19/2012 JAMESON DO, KIERAN K 536.8 DYSPEPSIA 08/19/2012 MADL LOGISTICS SYSTEM ENGINEER, HASEEB L 536.8 DYSPEPSIA 08/19/2012 MADL LOGISTICS SYSTEM ENGINEER, HASEEB L 536.8 DYSPEPSIA 08/19/2012 MADL LOGISTICS SYSTEM ENGINEER, HASEEB L 536.8 DYSPEPSIA 08/19/2012 MADL LOGISTICS SYSTEM ENGINEER, HASEEB L 536.8 DYSPEPSIA 08/19/2012 JAMESON DO, KIERAN K 536.8 DYSPEPSIA 08/19/2012 MADL LOGISTICS SYSTEM ENGINEER, HASEEB L 536.8 DYSPEPSIA 08/19/2012 MADL LOGISTICS SYSTEM ENGINEER, HASEEB L 536.8 DYSPEPSIA 08/19/2012 JAMESON DO, KIERAN K 536.8 DYSPEPSIA 08/19/2012 JAMESON DO, KIERAN K 536.8 DYSPEPSIA 08/19/2012 MADL LOGISTICS SYSTEM ENGINEER, HASEEB L 536.8 DYSPEPSIA 08/19/2012 MADL LOGISTICS SYSTEM ENGINEER, HASEEB L 536.8 DYSPEPSIA 08/19/2012 MADL LOGISTICS SYSTEM ENGINEER, HASEEB L 536.8 DYSPEPSIA 08/19/2012 MADL LOGISTICS SYSTEM ENGINEER, HASEEB L 536.8 DYSPEPSIA 09/25/2012 599.0 URINARY TRACT INFECTION 09/25/2012 599.0 URINARY TRACT INFECTION 09/25/2012 599.0 URINARY TRACT INFECTION 09/25/2012 599.0 URINARY TRACT INFECTION 09/25/2012 599.0 URINARY TRACT INFECTION 09/25/2012 599.0 URINARY TRACT INFECTION 09/25/2012 599.0 URINARY TRACT INFECTION 09/25/2012 599.0 URINARY TRACT INFECTION 09/25/2012 599.0 URINARY TRACT INFECTION 09/25/2012 599.0 URINARY TRACT INFECTION 09/25/2012 599.0 URINARY TRACT INFECTION 09/25/2012 WADE CARVER MD 599.0 URINARY TRACT INFECTION 09/25/2012 WADE CARVER MD 599.0 URINARY TRACT INFECTION 09/25/2012 WADE CARVER MD 599.0 URINARY TRACT INFECTION 09/25/2012 AZALEA JACOME MD 599.0 URINARY TRACT INFECTION 09/25/2012 AZALAE JACOME MD 599.0 URINARY TRACT INFECTION 09/25/2012 AZALEA JACOME MD 599.0 URINARY TRACT INFECTION 09/25/2012 WEN MD, WADE M 599.0 URINARY TRACT INFECTION 09/25/2012 WEN VEGA, WADE Ramírez 599.0 URINARY TRACT INFECTION 09/25/2012 JAMESON DO, KIERAN K 599.0 URINARY TRACT INFECTION 09/25/2012 JAMESON DO, KIERAN K 599.0 URINARY TRACT INFECTION 09/25/2012 JAMESON DO, KIERAN K 599.0 URINARY TRACT INFECTION 09/25/2012 JAMESON DO, KIERAN K 599.0 URINARY TRACT INFECTION 09/25/2012 MADL LOGISTICS SYSTEM ENGINEER, HASEEB L 599.0 URINARY TRACT INFECTION 09/25/2012 MADL LOGISTICS SYSTEM ENGINEER, HASEEB L 599.0 URINARY TRACT INFECTION 09/25/2012 MADL LOGISTICS SYSTEM ENGINEER, HASEEB L 599.0 URINARY TRACT INFECTION 09/25/2012 MADL LOGISTICS SYSTEM ENGINEER, HASEEB L 599.0 URINARY TRACT INFECTION 09/25/2012 JAMESON DO, KIERAN K 599.0 URINARY TRACT INFECTION 09/25/2012 MADL LOGISTICS SYSTEM ENGINEER, HASEEB L 599.0 URINARY TRACT INFECTION 09/25/2012 MADL LOGISTICS SYSTEM ENGINEER, HASEEB L 599.0 URINARY TRACT INFECTION 09/25/2012 JAMESON DO, KIERAN K 599.0 URINARY TRACT INFECTION 09/25/2012 JAMESON DO, KIERAN K 599.0 URINARY TRACT INFECTION 09/25/2012 MADL LOGISTICS SYSTEM ENGINEER, HASEEB L 599.0 URINARY TRACT INFECTION 09/25/2012 MADL LOGISTICS SYSTEM ENGINEER, HASEEB L 599.0 URINARY TRACT INFECTION 09/25/2012 MADL LOGISTICS SYSTEM ENGINEER, HASEEB L 599.0 URINARY TRACT INFECTION 09/25/2012 MADL LOGISTICS SYSTEM ENGINEER, HASEEB L 599.0 URINARY TRACT INFECTION 10/25/2012 782.1 RASH 10/25/2012 782.1 RASH 10/25/2012 782.1 RASH 10/25/2012 782.1 RASH 10/25/2012 782.1 RASH 10/25/2012 782.1 RASH 10/25/2012 782.1 RASH 10/25/2012 782.1 RASH 10/25/2012 782.1 RASH 10/25/2012 782.1 RASH 10/25/2012 WADE CARVER MD 782.1 RASH 10/25/2012 WADE CARVER MD 782.1 RASH 10/25/2012 WEN VEGA, WADE Ramírez 782.1 RASH 10/25/2012 AZALEA JACOME MD 782.1 RASH 10/25/2012 NAA VEGA, AZALEA 782.1 RASH 10/25/2012 ANA VEGA, AZALEA 782.1 RASH 10/25/2012 WEN VEGA, WADE Ramírez 782.1 RASH 10/25/2012 WADE CARVER MD 782.1 RASH 10/25/2012 JAMESON DO, KIERAN K 782.1 RASH 10/25/2012 JAMESON DO, KIERAN K 782.1 RASH 10/25/2012 JAMESON DO, KIERAN K 782.1 RASH 10/25/2012 JAMESON DO, KIERAN K 782.1 RASH 10/25/2012 MADL LOGISTICS SYSTEM ENGINEER, HASEEB L 782.1 RASH 10/25/2012 MADL LOGISTICS SYSTEM ENGINEER, HASEEB L 782.1 RASH 10/25/2012 MADL LOGISTICS SYSTEM ENGINEER, HASEEB L 782.1 RASH 10/25/2012 MADL LOGISTICS SYSTEM ENGINEER, HASEEB L 782.1 RASH 10/25/2012 JAMESON DO, KIERAN K 782.1 RASH 10/25/2012 MADL LOGISTICS SYSTEM ENGINEER, HASEEB L 782.1 RASH 10/25/2012 MADL LOGISTICS SYSTEM ENGINEER, HASEEB L 782.1 RASH 10/25/2012 JAMESON DO, KIERAN K 782.1 RASH 10/25/2012 JAMESON DO, KIERAN K 782.1 RASH 10/25/2012 MADL LOGISTICS SYSTEM ENGINEER, HASEEB L 782.1 RASH 10/25/2012 MADL LOGISTICS SYSTEM ENGINEER, HASEEB L 782.1 RASH 10/25/2012 MADL LOGISTICS SYSTEM ENGINEER, HASEEB L 782.1 RASH 10/25/2012 MADL LOGISTICS SYSTEM ENGINEER, HASEEB L 782.1 RASH 10/28/2012 530.5 DYSPHAGIA 10/28/2012 530.5 DYSPHAGIA 10/28/2012 530.5 DYSPHAGIA 10/28/2012 530.5 DYSPHAGIA 10/28/2012 530.5 DYSPHAGIA 10/28/2012 530.5 DYSPHAGIA 10/28/2012 530.5 DYSPHAGIA 10/28/2012 530.5 DYSPHAGIA 10/28/2012 530.5 DYSPHAGIA 10/28/2012 530.5 DYSPHAGIA 10/28/2012 WEN VEGA, WADE Ramírez 530.5 DYSPHAGIA 10/28/2012 WEN VEGA, WADE Ramírez 530.5 DYSPHAGIA 10/28/2012 WEN VEGA, WADE Ramírez 530.5 DYSPHAGIA 10/28/2012 NAA VEGA, AZALEA 530.5 DYSPHAGIA 10/28/2012 NAA VEGA, AZALEA 530.5 DYSPHAGIA 10/28/2012 NAA VEGA, AZALEA 530.5 DYSPHAGIA 10/28/2012 WEN VEGA, WADE Ramírez 530.5 DYSPHAGIA 10/28/2012 WEN VEGA, WADE Ramírez 530.5 DYSPHAGIA 10/28/2012 JAMESON DO, KIERAN K 530.5 DYSPHAGIA 10/28/2012 JAMESON DO, KIERAN K 530.5 DYSPHAGIA 10/28/2012 JAMESON DO, KIERAN K 530.5 DYSPHAGIA 10/28/2012 JAMESON DO, KIERAN K 530.5 DYSPHAGIA 10/28/2012 MADL LOGISTICS SYSTEM ENGINEER, HASEEB L 530.5 DYSPHAGIA 10/28/2012 MADL LOGISTICS SYSTEM ENGINEER, HASEEB L 530.5 DYSPHAGIA 10/28/2012 MADL LOGISTICS SYSTEM ENGINEER, HASEEB L 530.5 DYSPHAGIA 10/28/2012 MADL LOGISTICS SYSTEM ENGINEER, HASEEB L 530.5 DYSPHAGIA 10/28/2012 JAMESON DO, KIERAN K 530.5 DYSPHAGIA 10/28/2012 MADL LOGISTICS SYSTEM ENGINEER, HASEEB L 530.5 DYSPHAGIA 10/28/2012 MADL LOGISTICS SYSTEM ENGINEER, HASEEB L 530.5 DYSPHAGIA 10/28/2012 JAMESON DO, KIERAN K 530.5 DYSPHAGIA 10/28/2012 JAMESON DO, KIERAN K 530.5 DYSPHAGIA 10/28/2012 MADL LOGISTICS SYSTEM ENGINEER, HASEEB L 530.5 DYSPHAGIA 10/28/2012 MADL LOGISTICS SYSTEM ENGINEER, HASEEB L 530.5 DYSPHAGIA 10/28/2012 MADL LOGISTICS SYSTEM ENGINEER, HASEEB L 530.5 DYSPHAGIA 10/28/2012 MADL LOGISTICS SYSTEM ENGINEER, HASEEB L 530.5 DYSPHAGIA 11/15/2012 729.1 FIBROMYALGIA 11/15/2012 729.1 FIBROMYALGIA 11/15/2012 729.1 FIBROMYALGIA 11/15/2012 729.1 FIBROMYALGIA 11/15/2012 729.1 FIBROMYALGIA 11/15/2012 729.1 FIBROMYALGIA 11/15/2012 729.1 FIBROMYALGIA 11/15/2012 729.1 FIBROMYALGIA 11/15/2012 WEN VEGA, WADE Ramírez 729.1 FIBROMYALGIA 11/15/2012 WEN VEGA, WADE Ramírez 729.1 FIBROMYALGIA 11/15/2012 WEN VEGA, WADE Ramírez 729.1 FIBROMYALGIA 11/15/2012 NAA VEGA, AZALEA 729.1 FIBROMYALGIA 11/15/2012 NAA VEGA, AZALEA 729.1 FIBROMYALGIA 11/15/2012 AZALEA JACOME MD 729.1 FIBROMYALGIA 11/15/2012 WEN VEGA, WADE Ramríez 729.1 FIBROMYALGIA 11/15/2012 WEN VEGA, WADE Ramírez 729.1 FIBROMYALGIA 11/15/2012 JAMESON DO KIERAN K 729.1 FIBROMYALGIA 11/15/2012 JAMESON DO KIERAN K 729.1 FIBROMYALGIA 11/15/2012 JAMESON DO KIERAN K 729.1 FIBROMYALGIA 11/15/2012 JAMESON DO KIERAN K 729.1 FIBROMYALGIA 11/15/2012 MADL LOGISTICS SYSTEM ENGINEER, HASEEB L 729.1 FIBROMYALGIA 11/15/2012 MADL LOGISTICS SYSTEM ENGINEER, HASEEB L 729.1 FIBROMYALGIA 11/15/2012 MADL LOGISTICS SYSTEM ENGINEER, HASEEB L 729.1 FIBROMYALGIA 11/15/2012 MADL LOGISTICS SYSTEM ENGINEER, HASEEB L 729.1 FIBROMYALGIA 11/15/2012 JAMESON DO, KIERAN K 729.1 FIBROMYALGIA 11/15/2012 MADL LOGISTICS SYSTEM ENGINEER, HASEEB L 729.1 FIBROMYALGIA 11/15/2012 MADL LOGISTICS SYSTEM ENGINEER, HASEEB L 729.1 FIBROMYALGIA 11/15/2012 JAMESON DO KIERAN K 729.1 FIBROMYALGIA 11/15/2012 JAMESON DO, KIERAN K 729.1 FIBROMYALGIA 11/15/2012 MADL LOGISTICS SYSTEM ENGINEER, HASEEB L 729.1 FIBROMYALGIA 11/15/2012 MADL LOGISTICS SYSTEM ENGINEER, HASEEB L 729.1 FIBROMYALGIA 11/15/2012 MADL LOGISTICS SYSTEM ENGINEER, HASEEB L 729.1 FIBROMYALGIA 11/15/2012 MADL LOGISTICS SYSTEM ENGINEER, HASEEB L 729.1 FIBROMYALGIA 11/15/2012 AGNES ABDULLAHI MD Ot 599.0 URIN TRACT INFECTION NOS 11/15/2012 AGNES ABDULLAHI MD Ot 787.01 NAUSEA WITH VOMITING 11/29/2012 312.39 OTHER DISORDERS OF IMPULSE CONTROL 11/29/2012 723.1 CERVICALGIA 11/29/2012 312.39 OTHER DISORDERS OF IMPULSE CONTROL 11/29/2012 723.1 neck pain 11/29/2012 312.39 OTHER DISORDERS OF IMPULSE CONTROL 11/29/2012 723.1 neck pain 11/29/2012 312.39 OTHER DISORDERS OF IMPULSE CONTROL 11/29/2012 723.1 neck pain 11/29/2012 312.39 OTHER DISORDERS OF IMPULSE CONTROL 11/29/2012 723.1 neck pain 11/29/2012 312.39 OTHER DISORDERS OF IMPULSE CONTROL 11/29/2012 723.1 neck pain 11/29/2012 WADE CARVER MD 312.39 OTHER DISORDERS OF IMPULSE CONTROL 11/29/2012 WADE CARVER MD 723.1 neck pain 11/29/2012 WADE CARVER MD 312.39 OTHER DISORDERS OF IMPULSE CONTROL 11/29/2012 WADE CARVER MD 723.1 neck pain 11/29/2012 WADE CARVER MD 312.39 OTHER DISORDERS OF IMPULSE CONTROL 11/29/2012 WADE CARVER MD 723.1 neck pain 11/29/2012 AZALEA JACOME MD 312.39 OTHER DISORDERS OF IMPULSE CONTROL 11/29/2012 AZALEA JACOME MD 723.1 neck pain 11/29/2012 AZALEA JACOME MD 312.39 OTHER DISORDERS OF IMPULSE CONTROL 11/29/2012 AZALEA JACOME MD 723.1 neck pain 11/29/2012 AZALEA JACOME MD 312.39 OTHER DISORDERS OF IMPULSE CONTROL 11/29/2012 AZALEA JACOME MD 723.1 neck pain 11/29/2012 WADE CARVER MD 312.39 OTHER DISORDERS OF IMPULSE CONTROL 11/29/2012 WADE CARVER MD 723.1 neck pain 11/29/2012 WADE CARVER MD 312.39 OTHER DISORDERS OF IMPULSE CONTROL 11/29/2012 WADE CARVER MD 723.1 neck pain 11/29/2012 JAMESON KIERAN VACA K 312.39 OTHER DISORDERS OF IMPULSE CONTROL 11/29/2012 JAMESON DOKIERAN K 723.1 neck pain 11/29/2012 JAMESON DO, KIERAN K 312.39 OTHER DISORDERS OF IMPULSE CONTROL 11/29/2012 JAMESON DO, KIERAN K 723.1 neck pain 11/29/2012 JAMESON DO, KIERAN K 312.39 OTHER DISORDERS OF IMPULSE CONTROL 11/29/2012 JAMESON DO, KIERAN K 723.1 neck pain 11/29/2012 JAMESON DO, KIERAN K 312.39 OTHER DISORDERS OF IMPULSE CONTROL 11/29/2012 JAMESON DO, KIERAN K 723.1 neck pain 11/29/2012 MADL LOGISTICS SYSTEM ENGINEER, HASEEB L 312.39 OTHER DISORDERS OF IMPULSE CONTROL 11/29/2012 MADL LOGISTICS SYSTEM ENGINEER, HASEEB L 723.1 neck pain 11/29/2012 MADL LOGISTICS SYSTEM ENGINEER, HASEEB L 312.39 OTHER DISORDERS OF IMPULSE CONTROL 11/29/2012 MADL LOGISTICS SYSTEM ENGINEER, HASEEB L 723.1 neck pain 11/29/2012 MADL LOGISTICS SYSTEM ENGINEER, HASEEB L 312.39 OTHER DISORDERS OF IMPULSE CONTROL 11/29/2012 MADL LOGISTICS SYSTEM ENGINEER, HASEEB L 723.1 neck pain 11/29/2012 MADL LOGISTICS SYSTEM ENGINEER, HASEEB L 312.39 OTHER DISORDERS OF IMPULSE CONTROL 11/29/2012 MADL LOGISTICS SYSTEM ENGINEER, HASEEB L 723.1 neck pain 11/29/2012 JAMESON DO, KIERAN K 312.39 OTHER DISORDERS OF IMPULSE CONTROL 11/29/2012 JAMESON DO, KIERAN K 723.1 neck pain 11/29/2012 MADL LOGISTICS SYSTEM ENGINEER, HASEEB L 312.39 OTHER DISORDERS OF IMPULSE CONTROL 11/29/2012 MADL LOGISTICS SYSTEM ENGINEER, HASEEB L 723.1 neck pain 11/29/2012 MADL LOGISTICS SYSTEM ENGINEER, HASEEB L 312.39 OTHER DISORDERS OF IMPULSE CONTROL 11/29/2012 MADL LOGISTICS SYSTEM ENGINEER, HASEEB L 723.1 neck pain 11/29/2012 JAMESON DO, KIERAN K 312.39 OTHER DISORDERS OF IMPULSE CONTROL 11/29/2012 JAMESON DO, KIERAN K 723.1 neck pain 11/29/2012 JAMESON DO, KIERAN K 312.39 OTHER DISORDERS OF IMPULSE CONTROL 11/29/2012 JAMESON DO, KIERAN K 723.1 neck pain 11/29/2012 MADL LOGISTICS SYSTEM ENGINEER, HASEEB L 312.39 OTHER DISORDERS OF IMPULSE CONTROL 11/29/2012 MADL LOGISTICS SYSTEM ENGINEER, HASEEB L 723.1 neck pain 11/29/2012 MADL LOGISTICS SYSTEM ENGINEER, HASEEB L 312.39 OTHER DISORDERS OF IMPULSE CONTROL 11/29/2012 MADL LOGISTICS SYSTEM ENGINEER, HASEEB L 723.1 neck pain 11/29/2012 MADL LOGISTICS SYSTEM ENGINEER, HASEEB L 312.39 OTHER DISORDERS OF IMPULSE CONTROL 11/29/2012 MADL LOGISTICS SYSTEM ENGINEER, HASEEB L 723.1 neck pain 11/29/2012 MADL LOGISTICS SYSTEM ENGINEER, HASEEB L 312.39 OTHER DISORDERS OF IMPULSE CONTROL 11/29/2012 MADL LOGISTICS SYSTEM ENGINEER, HASEEB L 723.1 neck pain 02/06/2013 WADE CARVER MD Ot 724.2 LUMBAGO 02/06/2013 WADE CARVER MD Ot 781.2 ABNORMALITY OF GAIT 02/06/2013 WADE CARVER MD Ot V57.1 PHYSICAL THERAPY NEC 02/10/2013 533.90 PEPTIC ULCER OF UNSPECIFIED SITE UNSPECIFIED ACUTE OR CHRONIC WITHOUT HEMORRHAGE OR PERFORATION WITHOUT OBSTRUCTION 02/10/2013 WADE CARVER MD 533.90 PEPTIC ULCER OF UNSPECIFIED SITE UNSPECIFIED ACUTE OR CHRONIC WITHOUT HEMORRHAGE OR PERFORATION WITHOUT OBSTRUCTION 02/10/2013 WADE CARVER MD 533.90 PEPTIC ULCER OF UNSPECIFIED SITE UNSPECIFIED ACUTE OR CHRONIC WITHOUT HEMORRHAGE OR PERFORATION WITHOUT OBSTRUCTION 02/10/2013 WADE CARVER MD 533.90 PEPTIC ULCER OF UNSPECIFIED SITE UNSPECIFIED ACUTE OR CHRONIC WITHOUT HEMORRHAGE OR PERFORATION WITHOUT OBSTRUCTION 02/10/2013 AZALEA JACOME MD 533.90 PEPTIC ULCER OF UNSPECIFIED SITE UNSPECIFIED ACUTE OR CHRONIC WITHOUT HEMORRHAGE OR PERFORATION WITHOUT OBSTRUCTION 02/10/2013 AZALEA JACOME MD 533.90 PEPTIC ULCER OF UNSPECIFIED SITE UNSPECIFIED ACUTE OR CHRONIC WITHOUT HEMORRHAGE OR PERFORATION WITHOUT OBSTRUCTION 02/10/2013 AZALEA JACOME MD 533.90 PEPTIC ULCER OF UNSPECIFIED SITE UNSPECIFIED ACUTE OR CHRONIC WITHOUT HEMORRHAGE OR PERFORATION WITHOUT OBSTRUCTION 02/10/2013 WADE CARVER MD 533.90 PEPTIC ULCER OF UNSPECIFIED SITE UNSPECIFIED ACUTE OR CHRONIC WITHOUT HEMORRHAGE OR PERFORATION WITHOUT OBSTRUCTION 02/10/2013 WADE CARVER MD 533.90 PEPTIC ULCER OF UNSPECIFIED SITE UNSPECIFIED ACUTE OR CHRONIC WITHOUT HEMORRHAGE OR PERFORATION WITHOUT OBSTRUCTION 02/10/2013 JAMESON DOBAYLEEA K 533.90 PEPTIC ULCER OF UNSPECIFIED SITE UNSPECIFIED ACUTE OR CHRONIC WITHOUT HEMORRHAGE OR PERFORATION WITHOUT OBSTRUCTION 02/10/2013 JAMESON DO, KIERAN K 533.90 PEPTIC ULCER OF UNSPECIFIED SITE UNSPECIFIED ACUTE OR CHRONIC WITHOUT HEMORRHAGE OR PERFORATION WITHOUT OBSTRUCTION 02/10/2013 JAMESON DOBAYLEEA K 533.90 PEPTIC ULCER OF UNSPECIFIED SITE UNSPECIFIED ACUTE OR CHRONIC WITHOUT HEMORRHAGE OR PERFORATION WITHOUT OBSTRUCTION 02/10/2013 JAMESON DO KIERAN K 533.90 PEPTIC ULCER OF UNSPECIFIED SITE UNSPECIFIED ACUTE OR CHRONIC WITHOUT HEMORRHAGE OR PERFORATION WITHOUT OBSTRUCTION 02/10/2013 MADL LOGISTICS SYSTEM ENGINEER, HASEEB L 533.90 PEPTIC ULCER OF UNSPECIFIED SITE UNSPECIFIED ACUTE OR CHRONIC WITHOUT HEMORRHAGE OR PERFORATION WITHOUT OBSTRUCTION 02/10/2013 MADL LOGISTICS SYSTEM ENGINEER, HASEEB L 533.90 PEPTIC ULCER OF UNSPECIFIED SITE UNSPECIFIED ACUTE OR CHRONIC WITHOUT HEMORRHAGE OR PERFORATION WITHOUT OBSTRUCTION 02/10/2013 MADL LOGISTICS SYSTEM ENGINEER, HASEEB L 533.90 PEPTIC ULCER OF UNSPECIFIED SITE UNSPECIFIED ACUTE OR CHRONIC WITHOUT HEMORRHAGE OR PERFORATION WITHOUT OBSTRUCTION 02/10/2013 MADL LOGISTICS SYSTEM ENGINEER, HASEEB L 533.90 PEPTIC ULCER OF UNSPECIFIED SITE UNSPECIFIED ACUTE OR CHRONIC WITHOUT HEMORRHAGE OR PERFORATION WITHOUT OBSTRUCTION 02/10/2013 JAMESON DOBAYLEEA K 533.90 PEPTIC ULCER OF UNSPECIFIED SITE UNSPECIFIED ACUTE OR CHRONIC WITHOUT HEMORRHAGE OR PERFORATION WITHOUT OBSTRUCTION 02/10/2013 MAD[employer] LOGISTICS SYSTEM ENGINEER, HASEEB L 533.90 PEPTIC ULCER OF UNSPECIFIED SITE UNSPECIFIED ACUTE OR CHRONIC WITHOUT HEMORRHAGE OR PERFORATION WITHOUT OBSTRUCTION 02/10/2013 MAD[employer] LOGISTICS SYSTEM ENGINEER, HASEEB L 533.90 PEPTIC ULCER OF UNSPECIFIED SITE UNSPECIFIED ACUTE OR CHRONIC WITHOUT HEMORRHAGE OR PERFORATION WITHOUT OBSTRUCTION 02/10/2013 JAMESON DOBAYLEEA K 533.90 PEPTIC ULCER OF UNSPECIFIED SITE UNSPECIFIED ACUTE OR CHRONIC WITHOUT HEMORRHAGE OR PERFORATION WITHOUT OBSTRUCTION 02/10/2013 JAMESON DO KIERAN K 533.90 PEPTIC ULCER OF UNSPECIFIED SITE UNSPECIFIED ACUTE OR CHRONIC WITHOUT HEMORRHAGE OR PERFORATION WITHOUT OBSTRUCTION 02/10/2013 MAD[employer] LOGISTICS SYSTEM ENGINEER, HASEEB L 533.90 PEPTIC ULCER OF UNSPECIFIED SITE UNSPECIFIED ACUTE OR CHRONIC WITHOUT HEMORRHAGE OR PERFORATION WITHOUT OBSTRUCTION 02/10/2013 MAD[employer] LOGISTICS SYSTEM ENGINEER, HASEEB L 533.90 PEPTIC ULCER OF UNSPECIFIED SITE UNSPECIFIED ACUTE OR CHRONIC WITHOUT HEMORRHAGE OR PERFORATION WITHOUT OBSTRUCTION 02/10/2013 M[employer] LOGISTICS SYSTEM ENGINEER, HASEEB L 533.90 PEPTIC ULCER OF UNSPECIFIED SITE UNSPECIFIED ACUTE OR CHRONIC WITHOUT HEMORRHAGE OR PERFORATION WITHOUT OBSTRUCTION 02/10/2013 M[employer] LOGISTICS SYSTEM ENGINEER, HASEEB L 533.90 PEPTIC ULCER OF UNSPECIFIED SITE UNSPECIFIED ACUTE OR CHRONIC WITHOUT HEMORRHAGE OR PERFORATION WITHOUT OBSTRUCTION 02/18/2013 WADE CARVER MD 782.0 tingling (paresthesia) 02/18/2013 WADE CARVER MD M 782.0 tingling (paresthesia) 02/18/2013 WADE CARVER MD 782.0 tingling (paresthesia) 02/18/2013 AZALEA JACOME MD 782.0 tingling (paresthesia) 02/18/2013 AZALEA JACOME MD 782.0 tingling (paresthesia) 02/18/2013 AZALEA JACOME MD 782.0 tingling (paresthesia) 02/18/2013 WADE CARVER MD 782.0 tingling (paresthesia) 02/18/2013 WADE CARVER MD M 782.0 tingling (paresthesia) 02/18/2013 JAMESON DO, KIERAN K 782.0 tingling (paresthesia) 02/18/2013 JAMESON DO, KIERAN K 782.0 tingling (paresthesia) 02/18/2013 JAMESON DO, KIERAN K 782.0 tingling (paresthesia) 02/18/2013 JAMESON DO, KIERAN K 782.0 tingling (paresthesia) 02/18/2013 MAD[employer] LOGISTICS SYSTEM ENGINEER, HASEEB L 782.0 tingling (paresthesia) 02/18/2013 MAD[employer] LOGISTICS SYSTEM ENGINEER, HASEEB L 782.0 tingling (paresthesia) 02/18/2013 MAD[employer] LOGISTICS SYSTEM ENGINEER, HASEEB L 782.0 tingling (paresthesia) 02/18/2013 MAD[employer] LOGISTICS SYSTEM ENGINEER, HASEEB L 782.0 tingling (paresthesia) 02/18/2013 JAMESON DO, KIERAN K 782.0 tingling (paresthesia) 02/18/2013 M[employer] LOGISTICS SYSTEM ENGINEER, HASEEB L 782.0 tingling (paresthesia) 02/18/2013 MAD[employer] LOGISTICS SYSTEM ENGINEER, HASEEB L 782.0 tingling (paresthesia) 02/18/2013 JAMESON DO, KIERAN K 782.0 tingling (paresthesia) 02/18/2013 JAMESON DO, KIERAN K 782.0 tingling (paresthesia) 02/18/2013 MAD[employer] LOGISTICS SYSTEM ENGINEER, HASEEB L 782.0 tingling (paresthesia) 02/18/2013 MAD[employer] LOGISTICS SYSTEM ENGINEER, HASEEB L 782.0 tingling (paresthesia) 02/18/2013 MAD[employer] LOGISTICS SYSTEM ENGINEER, HASEEB L 782.0 tingling (paresthesia) 02/18/2013 MAD[employer] LOGISTICS SYSTEM ENGINEER, HASEEB L 782.0 tingling (paresthesia) 02/24/2013 ARMANI VEGA, BREEZY Ramírez Ot 300.00 ANXIETY STATE NOS 02/24/2013 ARMANI VEGA, BREEZY Ramírez Ot 401.9 HYPERTENSION NOS 02/24/2013 ARMANI VEGA, BREEZY Ramírez Ot 496 CHR AIRWAY OBSTRUCT NEC 02/24/2013 ARMANI VEGA, BREEZY Ramírez Ot 531.90 STOMACH ULCER NOS 04/04/2013 AZALEA JACOME MD 716.90 UNSPECIFIED ARTHROPATHY SITE UNSPECIFIED 04/04/2013 AZALEA JACOME MD V03.82 PPV23 (PNEUMOVAX) DX 04/04/2013 AZALEA JACOME MD 716.90 UNSPECIFIED ARTHROPATHY SITE UNSPECIFIED 04/04/2013 AZALEA JACOME MD V03.82 PPV23 (PNEUMOVAX) DX 04/04/2013 AZALEA JACOME MD 716.90 UNSPECIFIED ARTHROPATHY SITE UNSPECIFIED 04/04/2013 AZALEA JACOME MD V03.82 PPV23 (PNEUMOVAX) DX 04/04/2013 WADE CARVER MD 716.90 UNSPECIFIED ARTHROPATHY SITE UNSPECIFIED 04/04/2013 WADE CARVER MD V03.82 PPV23 (PNEUMOVAX) DX 04/04/2013 WADE CARVER MD 716.90 UNSPECIFIED ARTHROPATHY SITE UNSPECIFIED 04/04/2013 WEN VEGA, WADE Ramírez V03.82 PPV23 (PNEUMOVAX) DX 04/04/2013 JAMESON DO, KIERAN K 716.90 UNSPECIFIED ARTHROPATHY SITE UNSPECIFIED 04/04/2013 JAMESON DO, KIERAN K V03.82 PPV23 (PNEUMOVAX) DX 04/04/2013 JAMESON DO, KIERAN K 716.90 UNSPECIFIED ARTHROPATHY SITE UNSPECIFIED 04/04/2013 JAMESON DO, KIERAN K V03.82 PPV23 (PNEUMOVAX) DX 04/04/2013 JAMESON DO, KIERAN K 716.90 UNSPECIFIED ARTHROPATHY SITE UNSPECIFIED 04/04/2013 JAMESON DO, KIERAN K V03.82 PPV23 (PNEUMOVAX) DX 04/04/2013 JAMESON DO, KIERAN K 716.90 UNSPECIFIED ARTHROPATHY SITE UNSPECIFIED 04/04/2013 JAMESON DO, KIERAN K V03.82 PPV23 (PNEUMOVAX) DX 04/04/2013 MADL LOGISTICS SYSTEM ENGINEER, HASEEB L 716.90 UNSPECIFIED ARTHROPATHY SITE UNSPECIFIED 04/04/2013 MADL LOGISTICS SYSTEM ENGINEER, HASEEB L V03.82 PPV23 (PNEUMOVAX) DX 04/04/2013 MADL LOGISTICS SYSTEM ENGINEER, HASEEB L 716.90 UNSPECIFIED ARTHROPATHY SITE UNSPECIFIED 04/04/2013 MADL LOGISTICS SYSTEM ENGINEER, HASEEB L V03.82 PPV23 (PNEUMOVAX) DX 04/04/2013 MADL LOGISTICS SYSTEM ENGINEER, HASEEB L 716.90 UNSPECIFIED ARTHROPATHY SITE UNSPECIFIED 04/04/2013 MADL LOGISTICS SYSTEM ENGINEER, HASEEB L V03.82 PPV23 (PNEUMOVAX) DX 04/04/2013 MADL LOGISTICS SYSTEM ENGINEER, HASEEB L 716.90 UNSPECIFIED ARTHROPATHY SITE UNSPECIFIED 04/04/2013 MADL LOGISTICS SYSTEM ENGINEER, HASEEB L V03.82 PPV23 (PNEUMOVAX) DX 04/04/2013 JAMESON DO, KIERAN K 716.90 UNSPECIFIED ARTHROPATHY SITE UNSPECIFIED 04/04/2013 JAMESON DO, KIERAN K V03.82 PPV23 (PNEUMOVAX) DX 04/04/2013 MADL LOGISTICS SYSTEM ENGINEER, HASEEB L 716.90 UNSPECIFIED ARTHROPATHY SITE UNSPECIFIED 04/04/2013 MADL LOGISTICS SYSTEM ENGINEER, HASEEB L V03.82 PPV23 (PNEUMOVAX) DX 04/04/2013 MADL LOGISTICS SYSTEM ENGINEER, HASEEB L 716.90 UNSPECIFIED ARTHROPATHY SITE UNSPECIFIED 04/04/2013 MADL LOGISTICS SYSTEM ENGINEER, HASEEB L V03.82 PPV23 (PNEUMOVAX) DX 04/04/2013 JAMESON DO, KIERAN K 716.90 UNSPECIFIED ARTHROPATHY SITE UNSPECIFIED 04/04/2013 JAMESON DO, KIERAN K V03.82 PPV23 (PNEUMOVAX) DX 04/04/2013 JAMESON DO, KIERAN K 716.90 UNSPECIFIED ARTHROPATHY SITE UNSPECIFIED 04/04/2013 JAMESON DO, KIERAN K V03.82 PPV23 (PNEUMOVAX) DX 04/04/2013 MADL LOGISTICS SYSTEM ENGINEER, HASEEB L 716.90 UNSPECIFIED ARTHROPATHY SITE UNSPECIFIED 04/04/2013 MADL LOGISTICS SYSTEM ENGINEER, HASEEB L V03.82 PPV23 (PNEUMOVAX) DX 04/04/2013 MADL LOGISTICS SYSTEM ENGINEER, HASEEB L 716.90 UNSPECIFIED ARTHROPATHY SITE UNSPECIFIED 04/04/2013 MADL LOGISTICS SYSTEM ENGINEER, HASEEB L V03.82 PPV23 (PNEUMOVAX) DX 04/04/2013 MADL LOGISTICS SYSTEM ENGINEER, HASEEB L 716.90 UNSPECIFIED ARTHROPATHY SITE UNSPECIFIED 04/04/2013 MADL LOGISTICS SYSTEM ENGINEER, HASEEB L V03.82 PPV23 (PNEUMOVAX) DX 04/04/2013 MADL LOGISTICS SYSTEM ENGINEER, HASEEB L 716.90 UNSPECIFIED ARTHROPATHY SITE UNSPECIFIED 04/04/2013 MADL LOGISTICS SYSTEM ENGINEER, HASEEB L V03.82 PPV23 (PNEUMOVAX) DX 04/18/2013 NAA VEGA, AZALEA 781.0 TREMOR/SPASM 04/18/2013 NAA VEGA, AZALEA 781.0 TREMOR/SPASM 04/18/2013 WEN VEGA, WADE Ramírez 781.0 TREMOR/SPASM 04/18/2013 WEN VEGA, WADE Ramírez 781.0 TREMOR/SPASM 04/18/2013 JAMESON DO, KIERAN K 781.0 TREMOR/SPASM 04/18/2013 JAMESON DO, KIERAN K 781.0 TREMOR/SPASM 04/18/2013 JAMESON DO, KIERAN K 781.0 TREMOR/SPASM 04/18/2013 JAMESON DO, KIERAN K 781.0 TREMOR/SPASM 04/18/2013 MADL LOGISTICS SYSTEM ENGINEER, HASEEB L 781.0 TREMOR/SPASM 04/18/2013 MADL LOGISTICS SYSTEM ENGINEER, HASEEB L 781.0 TREMOR/SPASM 04/18/2013 MADL LOGISTICS SYSTEM ENGINEER, HASEEB L 781.0 TREMOR/SPASM 04/18/2013 MADL LOGISTICS SYSTEM ENGINEER, HASEEB L 781.0 TREMOR/SPASM 04/18/2013 JAMESON DO, KIERAN K 781.0 TREMOR/SPASM 04/18/2013 MADL LOGISTICS SYSTEM ENGINEER, HASEEB L 781.0 TREMOR/SPASM 04/18/2013 MADL LOGISTICS SYSTEM ENGINEER, HASEEB L 781.0 TREMOR/SPASM 04/18/2013 JAMESON DO, KIERAN K 781.0 TREMOR/SPASM 04/18/2013 JAMESON DO, KIERAN K 781.0 TREMOR/SPASM 04/18/2013 MADL LOGISTICS SYSTEM ENGINEER, HASEEB L 781.0 TREMOR/SPASM 04/18/2013 MADL LOGISTICS SYSTEM ENGINEER, HASEEB L 781.0 TREMOR/SPASM 04/18/2013 MADL LOGISTICS SYSTEM ENGINEER, HASEEB L 781.0 TREMOR/SPASM 04/18/2013 MADL LOGISTICS SYSTEM ENGINEER, HASEEB L 781.0 TREMOR/SPASM 04/26/2013 BÁRBARA HERNÁNDEZ DO Ot 496 CHR AIRWAY OBSTRUCT NEC 04/26/2013 BÁRBARA HERNÁNDEZ DO Ot 780.54 HYPERSOMNIA, UNSPECIFIED 04/26/2013 BÁRBARA HERNÁNDEZ DO Ot 786.09 RESPIRATORY ABNORM NEC 06/12/2013 WADE CARVER MD Ot 780.4 DIZZINESS AND GIDDINESS 06/12/2013 WADE CARVER MD Ot 782.0 SKIN SENSATION DISTURB 07/14/2013 BÁRBARA HERNÁNDEZ DO Ot 278.00 OBESITY, NOS 07/14/2013 BÁRBARA HERNÁNDEZ DO Ot 296.90 UNSPECIFIED EPISODIC MOOD DISORDER 07/14/2013 BÁRBARA HERNÁNDEZ DO Ot 300.00 ANXIETY STATE NOS 07/14/2013 BÁRBARA HERNÁNDEZ DO Ot 305.1 TOBACCO USE DISORDER 07/14/2013 BÁRBARA HERNÁNDEZ DO Ot 496 CHR AIRWAY OBSTRUCT NEC 07/14/2013 BÁRBARA HERNÁNDEZ DO Ot 729.81 SWELLING OF LIMB 07/14/2013 BÁRBARA HERNÁNDEZ DO Ot 780.4 DIZZINESS AND GIDDINESS 07/14/2013 BÁRBARA HERNÁNDEZ DO Ot 786.09 RESPIRATORY ABNORM NEC 07/14/2013 BÁRBARA HERNÁNDEZ DO Ot 788.43 NOCTURIA 07/14/2013 BÁRBARA HERNÁNDEZ DO Ot V12.79 PERSONAL HISTORY OTH SPEC DIGESTIVE SYST 07/22/2013 WADE CARVER MD 780.4 dizziness 07/22/2013 WADE CARVER MD 780.4 dizziness 07/22/2013 JAMESON DO, KIERAN K 780.4 dizziness 07/22/2013 JAMESON DO, KIERAN K 780.4 dizziness 07/22/2013 JAMESON DO, KIERAN K 780.4 dizziness 07/22/2013 JAMESON DO, KIERAN K 780.4 dizziness 07/22/2013 MADL LOGISTICS SYSTEM ENGINEER, HASEEB L 780.4 dizziness 07/22/2013 MADL LOGISTICS SYSTEM ENGINEER, HASEEB L 780.4 dizziness 07/22/2013 MADL LOGISTICS SYSTEM ENGINEER, HASEEB L 780.4 dizziness 07/22/2013 MADL LOGISTICS SYSTEM ENGINEER, HASEEB L 780.4 dizziness 07/22/2013 JAMESON DO, KIERAN K 780.4 dizziness 07/22/2013 MADL LOGISTICS SYSTEM ENGINEER, HASEEB L 780.4 dizziness 07/22/2013 MADL LOGISTICS SYSTEM ENGINEER, HASEEB L 780.4 dizziness 07/22/2013 JAMESON DO, KIERAN K 780.4 dizziness 07/22/2013 JAMESON DO, KIERAN K 780.4 dizziness 07/22/2013 MADL LOGISTICS SYSTEM ENGINEER, HASEEB L 780.4 DIZZINESS 07/22/2013 MADL LOGISTICS SYSTEM ENGINEER, HASEEB L 780.4 DIZZINESS 07/22/2013 MADL LOGISTICS SYSTEM ENGINEER, HASEEB L 780.4 DIZZINESS 07/22/2013 MADL LOGISTICS SYSTEM ENGINEER, HASEEB L 780.4 DIZZINESS 09/26/2013 JAMESON DO, KIERAN K 272.1 HYPERTRIGLYCERIDEMIA 09/26/2013 JAMESON DO, KIERAN K 790.21 IMPAIRED FASTING GLUCOSE 09/26/2013 JAMESON DO, KIERAN K 272.1 HYPERTRIGLYCERIDEMIA 09/26/2013 JAMESON DO, KIERAN K 790.21 IMPAIRED FASTING GLUCOSE 09/26/2013 JAMESON DO, KIERAN K 272.1 HYPERTRIGLYCERIDEMIA 09/26/2013 JAMESON DO, KIERAN K 790.21 IMPAIRED FASTING GLUCOSE 09/26/2013 JAMESON DO, KIERAN K 272.1 HYPERTRIGLYCERIDEMIA 09/26/2013 JAMESON DO, KIERAN K 790.21 IMPAIRED FASTING GLUCOSE 09/26/2013 MADL LOGISTICS SYSTEM ENGINEER, HASEEB L 272.1 HYPERTRIGLYCERIDEMIA 09/26/2013 MADL LOGISTICS SYSTEM ENGINEER, HASEEB L 790.21 IMPAIRED FASTING GLUCOSE 09/26/2013 MADL LOGISTICS SYSTEM ENGINEER, HASEEB L 272.1 HYPERTRIGLYCERIDEMIA 09/26/2013 MADL LOGISTICS SYSTEM ENGINEER, HASEEB L 790.21 IMPAIRED FASTING GLUCOSE 09/26/2013 MADL LOGISTICS SYSTEM ENGINEER, HASEEB L 272.1 HYPERTRIGLYCERIDEMIA 09/26/2013 MADL LOGISTICS SYSTEM ENGINEER, HASEEB L 790.21 IMPAIRED FASTING GLUCOSE 09/26/2013 MADL LOGISTICS SYSTEM ENGINEER, HASEEB L 272.1 HYPERTRIGLYCERIDEMIA 09/26/2013 [facility], HASEEB L 790.21 IMPAIRED FASTING GLUCOSE 09/26/2013 JAMESON DO, KIERAN K 272.1 HYPERTRIGLYCERIDEMIA 09/26/2013 JAMESON DO, KIERAN K 790.21 IMPAIRED FASTING GLUCOSE 09/26/2013 MADL LOGISTICS SYSTEM ENGINEER, HASEEB L 272.1 HYPERTRIGLYCERIDEMIA 09/26/2013 MADL LOGISTICS SYSTEM ENGINEER, HASEEB L 790.21 IMPAIRED FASTING GLUCOSE 09/26/2013 MADL LOGISTICS SYSTEM ENGINEER, HASEEB L 272.1 HYPERTRIGLYCERIDEMIA 09/26/2013 MADL LOGISTICS SYSTEM ENGINEER, HASEEB L 790.21 IMPAIRED FASTING GLUCOSE 09/26/2013 JAMESON DO, KIERAN K 272.1 HYPERTRIGLYCERIDEMIA 09/26/2013 JAMESON DO, KIERAN K 790.21 IMPAIRED FASTING GLUCOSE 09/26/2013 JAMESON DO, KIERAN K 272.1 HYPERTRIGLYCERIDEMIA 09/26/2013 JAMESON DO, KIERAN K 790.21 IMPAIRED FASTING GLUCOSE 09/26/2013 MADL LOGISTICS SYSTEM ENGINEER, HASEEB L 272.1 HYPERTRIGLYCERIDEMIA 09/26/2013 MADL LOGISTICS SYSTEM ENGINEER, HASEEB L 790.21 IMPAIRED FASTING GLUCOSE 09/26/2013 MADL LOGISTICS SYSTEM ENGINEER, HASEEB L 272.1 HYPERTRIGLYCERIDEMIA 09/26/2013 MADL LOGISTICS SYSTEM ENGINEER, HASEEB L 790.21 IMPAIRED FASTING GLUCOSE 09/26/2013 MADL LOGISTICS SYSTEM ENGINEER, HASEEB L 272.1 HYPERTRIGLYCERIDEMIA 09/26/2013 MADL LOGISTICS SYSTEM ENGINEER, HASEEB L 790.21 IMPAIRED FASTING GLUCOSE 09/26/2013 MADL LOGISTICS SYSTEM ENGINEER, HASEEB L 272.1 HYPERTRIGLYCERIDEMIA 09/26/2013 MADL LOGISTICS SYSTEM ENGINEER, HASEEB L 790.21 IMPAIRED FASTING GLUCOSE 10/09/2013 JAMESON DO KIERAN K 250.00 DIABETES MELLITUS WITHOUT MENTION OF COMPLICATION TYPE II OR UNSPECIFIED TYPE NOT STATED UNCONTROLLED 10/09/2013 JAMESON DO, KIERAN K 250.00 DIABETES MELLITUS WITHOUT MENTION OF COMPLICATION TYPE II OR UNSPECIFIED TYPE NOT STATED UNCONTROLLED 10/09/2013 MADL LOGISTICS SYSTEM ENGINEER, HASEEB L 250.00 DIABETES MELLITUS WITHOUT MENTION OF COMPLICATION TYPE II OR UNSPECIFIED TYPE NOT STATED UNCONTROLLED 10/09/2013 MADL LOGISTICS SYSTEM ENGINEER, HASEEB L 250.00 DIABETES MELLITUS WITHOUT MENTION OF COMPLICATION TYPE II OR UNSPECIFIED TYPE NOT STATED UNCONTROLLED 10/09/2013 MADL LOGISTICS SYSTEM ENGINEER, HASEEB L 250.00 DIABETES MELLITUS WITHOUT MENTION OF COMPLICATION TYPE II OR UNSPECIFIED TYPE NOT STATED UNCONTROLLED 10/09/2013 MADL LOGISTICS SYSTEM ENGINEER, HASEEB L 250.00 DIABETES MELLITUS WITHOUT MENTION OF COMPLICATION TYPE II OR UNSPECIFIED TYPE NOT STATED UNCONTROLLED 10/09/2013 JAMESON DO, KIERAN K 250.00 DIABETES MELLITUS WITHOUT MENTION OF COMPLICATION TYPE II OR UNSPECIFIED TYPE NOT STATED UNCONTROLLED 10/09/2013 MADL LOGISTICS SYSTEM ENGINEER, HASEEB L 250.00 DIABETES MELLITUS WITHOUT MENTION OF COMPLICATION TYPE II OR UNSPECIFIED TYPE NOT STATED UNCONTROLLED 10/09/2013 MADL LOGISTICS SYSTEM ENGINEER, HASEEB L 250.00 DIABETES MELLITUS WITHOUT MENTION OF COMPLICATION TYPE II OR UNSPECIFIED TYPE NOT STATED UNCONTROLLED 10/09/2013 JAMESON DO KIERAN K 250.00 DIABETES MELLITUS WITHOUT MENTION OF COMPLICATION TYPE II OR UNSPECIFIED TYPE NOT STATED UNCONTROLLED 10/09/2013 JAMESON DO, KIERAN K 250.00 DIABETES MELLITUS WITHOUT MENTION OF COMPLICATION TYPE II OR UNSPECIFIED TYPE NOT STATED UNCONTROLLED 10/09/2013 MADL LOGISTICS SYSTEM ENGINEER, HASEEB L 250.00 DIABETES MELLITUS WITHOUT MENTION OF COMPLICATION TYPE II OR UNSPECIFIED TYPE NOT STATED UNCONTROLLED 10/09/2013 MADL LOGISTICS SYSTEM ENGINEER, HASEEB L 250.00 DIABETES MELLITUS WITHOUT MENTION OF COMPLICATION TYPE II OR UNSPECIFIED TYPE NOT STATED UNCONTROLLED 10/09/2013 MADL LOGISTICS SYSTEM ENGINEER, HASEEB L 250.00 DIABETES MELLITUS WITHOUT MENTION OF COMPLICATION TYPE II OR UNSPECIFIED TYPE NOT STATED UNCONTROLLED 10/09/2013 MADL LOGISTICS SYSTEM ENGINEER, HASEEB L 250.00 DIABETES MELLITUS WITHOUT MENTION OF COMPLICATION TYPE II OR UNSPECIFIED TYPE NOT STATED UNCONTROLLED 10/16/2013 JAMESON DO, KIERAN K V72.31 PROJECT ENGINEER CHEMICALS EXAM, ROUTINE 10/16/2013 JAMESON DO, KIERAN K V76.51 COLON CANCER SCREENING 10/16/2013 MADL LOGISTICS SYSTEM ENGINEER, HASEEB L V72.31 PROJECT ENGINEER CHEMICALS EXAM, ROUTINE 10/16/2013 MADL LOGISTICS SYSTEM ENGINEER, HASEEB L V76.51 COLON CANCER SCREENING 10/16/2013 MADL LOGISTICS SYSTEM ENGINEER, HASEEB L V72.31 PROJECT ENGINEER CHEMICALS EXAM, ROUTINE 10/16/2013 MADL LOGISTICS SYSTEM ENGINEER, HASEEB L V76.51 COLON CANCER SCREENING 10/16/2013 MADL LOGISTICS SYSTEM ENGINEER, HASEEB L V72.31 PROJECT ENGINEER CHEMICALS EXAM, ROUTINE 10/16/2013 MADL LOGISTICS SYSTEM ENGINEER, HASEEB L V76.51 COLON CANCER SCREENING 10/16/2013 MADL LOGISTICS SYSTEM ENGINEER, HASEEB L V72.31 PROJECT ENGINEER CHEMICALS EXAM, ROUTINE 10/16/2013 MADL LOGISTICS SYSTEM ENGINEER, HASEEB L V76.51 COLON CANCER SCREENING 10/16/2013 JAMESON DO, KIERAN K V72.31 PROJECT ENGINEER CHEMICALS EXAM, ROUTINE 10/16/2013 JAMESON DO, KIERAN K V76.51 COLON CANCER SCREENING 10/16/2013 MADL LOGISTICS SYSTEM ENGINEER, HASEEB L V72.31 PROJECT ENGINEER CHEMICALS EXAM, ROUTINE 10/16/2013 MADL LOGISTICS SYSTEM ENGINEER, HASEEB L V76.51 COLON CANCER SCREENING 10/16/2013 MADL LOGISTICS SYSTEM ENGINEER, HASEEB L V72.31 PROJECT ENGINEER CHEMICALS EXAM, ROUTINE 10/16/2013 MADL LOGISTICS SYSTEM ENGINEER, HASEEB L V76.51 COLON CANCER SCREENING 10/16/2013 JAMESON DO, KIERAN K V72.31 PROJECT ENGINEER CHEMICALS EXAM, ROUTINE 10/16/2013 JAMESON DO, KIERAN K V76.51 COLON CANCER SCREENING 10/16/2013 JAMESON DO, KIERAN K V72.31 PROJECT ENGINEER CHEMICALS EXAM, ROUTINE 10/16/2013 JAMESON DO, KIERAN K V76.51 COLON CANCER SCREENING 10/16/2013 MADL LOGISTICS SYSTEM ENGINEER, HASEEB L V72.31 PROJECT ENGINEER CHEMICALS EXAM, ROUTINE 10/16/2013 MADL LOGISTICS SYSTEM ENGINEER, HASEEB L V76.51 COLON CANCER SCREENING 10/16/2013 MADL LOGISTICS SYSTEM ENGINEER, HASEEB L V72.31 PROJECT ENGINEER CHEMICALS EXAM, ROUTINE 10/16/2013 MADL LOGISTICS SYSTEM ENGINEER, HASEEB L V76.51 COLON CANCER SCREENING 10/16/2013 MADL LOGISTICS SYSTEM ENGINEER, HASEEB L V72.31 PROJECT ENGINEER CHEMICALS EXAM, ROUTINE 10/16/2013 MADL LOGISTICS SYSTEM ENGINEER, HASEEB L V76.51 COLON CANCER SCREENING 10/16/2013 MADL LOGISTICS SYSTEM ENGINEER, HASEEB L V72.31 PROJECT ENGINEER CHEMICALS EXAM, ROUTINE 10/16/2013 MADL LOGISTICS SYSTEM ENGINEER, HASEEB L V76.51 COLON CANCER SCREENING 11/05/2013 RIGOBERTO HUBBARD MD Ot 272.0 PURE HYPERCHOLESTEROLEM 11/05/2013 RIGOBERTO HUBBARD MD Ot 401.9 HYPERTENSION NOS 11/05/2013 RIGOBERTO HUBBARD MD Ot 414.00 CORON ATHEROSCLER NOS TYPE VESSEL, NATIV 11/05/2013 RIGOBERTO HUBBARD MD Ot 455.0 INT HEMORRHOID W/O COMPL 11/05/2013 RIGOBERTO HUBBARD MD Ot 455.3 EXT HEMORRHOID W/O COMPL 11/05/2013 RIGOBERTO HUBBARD MD Ot 496 CHR AIRWAY OBSTRUCT NEC 11/05/2013 RIGOBERTO HUBBARD MD Ot 530.81 ESOPHAGEAL REFLUX 11/05/2013 RIGOBERTO HUBBARD MD Ot 562.10 DIVERTICULOSIS COLON (W/O MENT OF HEMORR 11/05/2013 RIGOBERTO HUBBARD MD Ot V76.51 SCREEN MAL NEOP-COLON 11/10/2013 MADL LOGISTICS SYSTEM ENGINEER, HASEEB L 305.1 TOBACCO ABUSE 11/10/2013 MADL LOGISTICS SYSTEM ENGINEER, HASEEB L 786.2 COUGH 11/10/2013 MADL LOGISTICS SYSTEM ENGINEER, HASEEB L 305.1 TOBACCO ABUSE 11/10/2013 MADL LOGISTICS SYSTEM ENGINEER, HASEEB L 786.2 COUGH 11/10/2013 MADL LOGISTICS SYSTEM ENGINEER, HASEEB L 305.1 TOBACCO ABUSE 11/10/2013 MADL LOGISTICS SYSTEM ENGINEER, HASEEB L 786.2 COUGH 11/10/2013 TRINO VACA KIERAN K 305.1 TOBACCO ABUSE 11/10/2013 JAMESON DO, KIERAN K 786.2 COUGH 11/10/2013 MADL LOGISTICS SYSTEM ENGINEER, HASEEB L 305.1 TOBACCO ABUSE 11/10/2013 MADL LOGISTICS SYSTEM ENGINEER, HASEEB L 786.2 COUGH 11/10/2013 MADL LOGISTICS SYSTEM ENGINEER, HASEEB L 305.1 TOBACCO ABUSE 11/10/2013 MADL LOGISTICS SYSTEM ENGINEER, HASEEB L 786.2 COUGH 11/10/2013 JAMESON DO, KIERAN K 305.1 TOBACCO ABUSE 11/10/2013 JAMESON DO, KIERAN K 786.2 COUGH 11/10/2013 JAMESON DO, KIERAN K 305.1 TOBACCO ABUSE 11/10/2013 JAMESON DO, KIERAN K 786.2 COUGH 11/10/2013 MADL LOGISTICS SYSTEM ENGINEER, HASEEB L 305.1 TOBACCO ABUSE 11/10/2013 MADL LOGISTICS SYSTEM ENGINEER, HASEEB L 786.2 COUGH 11/10/2013 MADL LOGISTICS SYSTEM ENGINEER, HASEEB L 305.1 TOBACCO ABUSE 11/10/2013 MADL LOGISTICS SYSTEM ENGINEER, HASEEB L 786.2 COUGH 11/10/2013 MADL LOGISTICS SYSTEM ENGINEER, HASEEB L 305.1 TOBACCO ABUSE 11/10/2013 MADL LOGISTICS SYSTEM ENGINEER, HASEEB L 786.2 COUGH 11/10/2013 MADL LOGISTICS SYSTEM ENGINEER, HASEEB L 305.1 TOBACCO ABUSE 11/10/2013 MADL LOGISTICS SYSTEM ENGINEER, HASEEB L 786.2 COUGH 11/26/2013 MADL LOGISTICS SYSTEM ENGINEER, HASEEB L 724.2 LUMBAGO 11/26/2013 MADL LOGISTICS SYSTEM ENGINEER, HASEEB L 724.2 LUMBAGO 11/26/2013 JAMESON DO, KIERAN K 724.2 LUMBAGO 11/26/2013 MADL LOGISTICS SYSTEM ENGINEER, HASEEB L 724.2 LUMBAGO 11/26/2013 MADL LOGISTICS SYSTEM ENGINEER, HASEEB L 724.2 LUMBAGO 11/26/2013 JAMESON DO, KIERAN K 724.2 LUMBAGO 11/26/2013 JAMESON DO, KIERAN K 724.2 LUMBAGO 11/26/2013 MADL LOGISTICS SYSTEM ENGINEER, HASEEB L 724.2 LUMBAGO 11/26/2013 MADL LOGISTICS SYSTEM ENGINEER, HASEEB L 724.2 LUMBAGO 11/26/2013 MADL LOGISTICS SYSTEM ENGINEER, HASEEB L 724.2 LUMBAGO 11/26/2013 MADL LOGISTICS SYSTEM ENGINEER, HASEEB L 724.2 LUMBAGO 12/24/2013 MADL LOGISTICS SYSTEM ENGINEER, HASEEB L 244.9 HYPOTHYROIDISM 12/24/2013 JAMESON DO, KIERAN K 244.9 HYPOTHYROIDISM 12/24/2013 MADL LOGISTICS SYSTEM ENGINEER, HASEEB L 244.9 HYPOTHYROIDISM 12/24/2013 MADL LOGISTICS SYSTEM ENGINEER, HASEEB L 244.9 HYPOTHYROIDISM 12/24/2013 JAMESON DO, KIERAN K 244.9 HYPOTHYROIDISM 12/24/2013 JAMESON DO, KIERAN K 244.9 HYPOTHYROIDISM 12/24/2013 MADL LOGISTICS SYSTEM ENGINEER, HASEEB L 244.9 HYPOTHYROIDISM 12/24/2013 MADL LOGISTICS SYSTEM ENGINEER, HASEEB L 244.9 HYPOTHYROIDISM 12/24/2013 MADL LOGISTICS SYSTEM ENGINEER, HASEEB L 244.9 HYPOTHYROIDISM 12/24/2013 MADL LOGISTICS SYSTEM ENGINEER, HASEEB L 244.9 HYPOTHYROIDISM 02/17/2014 THERESA VEGA FACC, ALI FACP CCDS Ot 300.4 DYSTHYMIC DISORDER 02/17/2014 THERESA VEGA FACC, ALI FACP CCDS Ot 305.1 TOBACCO USE DISORDER 02/17/2014 THERESA VEGA FACC, ALI FACP CCDS Ot 413.9 ANGINA PECTORIS NEC/NOS 02/17/2014 THERESA VEGA FACC, ALI FACP CCDS Ot 414.01 CORONARY ATHEROSCLEROSIS OF [place] CORON 02/17/2014 THERESA VEGA FACC, ALI FACP CCDS Ot 496 CHR AIRWAY OBSTRUCT NEC 02/17/2014 THERESA VEGA FACC, ALI FACP CCDS Ot 530.81 ESOPHAGEAL REFLUX 02/17/2014 THERESA VEGA FACC, ALI FACP CCDS Ot 715.98 OSTEOARTHRO NOS-OTH SITE 02/17/2014 THERESA VEGA FACC, ALI FACP CCDS Ot 729.81 SWELLING OF LIMB 02/17/2014 THERESA VEGA FACC, ALI FACP CCDS Ot 786.59 CHEST PAIN NEC 02/17/2014 THERESA VEGA FACC, ALI FACP CCDS Ot V58.69 OT MED,LT,CURRENT USE 04/13/2014 MADL LOGISTICS SYSTEM ENGINEER, HASEEB L V04.81 FLU SHOT 04/13/2014 MADL LOGISTICS SYSTEM ENGINEER, HASEEB L V04.81 FLU SHOT 04/13/2014 JAMESON DOBAYLEEA K V04.81 FLU SHOT 04/13/2014 JAMESON DOBAYLEEA K V04.81 FLU SHOT 04/13/2014 MADL LOGISTICS SYSTEM ENGINEER, HASEEB L V04.81 FLU SHOT 04/13/2014 MADL LOGISTICS SYSTEM ENGINEER, HASEEB L V04.81 FLU SHOT 04/13/2014 MADL LOGISTICS SYSTEM ENGINEER, HASEEB L V04.81 FLU SHOT 04/13/2014 MADL LOGISTICS SYSTEM ENGINEER, HASEEB L V04.81 FLU SHOT 04/29/2014 ROSALIO LUCAS LOGISTICS SYSTEM ENGINEER Ot 719.46 04/29/2014 ROSALIO LUCAS E LOGISTICS SYSTEM ENGINEER Ot V57.1 05/06/2014 MADL LOGISTICS SYSTEM ENGINEER, HASEEB L 593.9 UNSPECIFIED DISORDER OF KIDNEY AND URETER 05/06/2014 BAYLEE JAMESON DOA K 593.9 UNSPECIFIED DISORDER OF KIDNEY AND URETER 05/06/2014 TRINO VACA KIERAN K 593.9 UNSPECIFIED DISORDER OF KIDNEY AND URETER 05/06/2014 MADL LOGISTICS SYSTEM ENGINEER, HASEEB L 593.9 UNSPECIFIED DISORDER OF KIDNEY AND URETER 05/06/2014 MADL LOGISTICS SYSTEM ENGINEER, HASEEB L 593.9 UNSPECIFIED DISORDER OF KIDNEY AND URETER 05/06/2014 MADL LOGISTICS SYSTEM ENGINEER, HASEEB L 593.9 UNSPECIFIED DISORDER OF KIDNEY AND URETER 05/06/2014 MADL LOGISTICS SYSTEM ENGINEER, HASEEB L 593.9 UNSPECIFIED DISORDER OF KIDNEY AND URETER 05/07/2014 MARY CARRENO DO Ot 715.36 06/03/2014 ROSALIO LUCAS LOGISTICS SYSTEM ENGINEER Ot 719.46 06/03/2014 ROSALIO LUCAS LOGISTICS SYSTEM ENGINEER Ot V57.1 06/05/2014 ROSALIO LUCAS E LOGISTICS SYSTEM ENGINEER Ot 719.46 JOINT PAIN-L/LEG 06/05/2014 ROSALIO LUCAS LOGISTICS SYSTEM ENGINEER Ot V57.1 PHYSICAL THERAPY NEC 06/23/2014 CLAUDYBurtHASEEB Burt OLERICULTURIST Ot 721.3 07/07/2014 Ot 397.0 07/07/2014 Ot 424.0 07/07/2014 Ot 786.05 07/07/2014 Ot 786.50 07/07/2014 Ot 722.52 07/07/2014 Ot 414.00 07/07/2014 Ot 783.1 07/07/2014 Ot 496 07/07/2014 Ot 717.3 07/07/2014 Ot V72.83 07/07/2014 Ot 786.05 07/07/2014 Ot 786.50 07/07/2014 Ot V72.83 07/07/2014 Ot 414.9 07/07/2014 Ot 786.50 07/07/2014 Ot V58.69 07/07/2014 Ot 272.4 07/07/2014 Ot 401.9 07/07/2014 Ot V58.69 07/07/2014 Ot 611.71 07/07/2014 Ot V72.84 07/07/2014 Ot 244.9 07/07/2014 Ot 414.01 07/07/2014 Ot V76.12 07/07/2014 NAA VEGA, AZALEA Cortez Ot 553.3 07/07/2014 NAA VEGA, AZALEA Cortez Ot 787.20 07/07/2014 THERESA VEGA FAC, [facility] CCDS Ot 729.81 07/07/2014 ARMANI VEGA, BREEZY Ramírez Ot V72.84 07/07/2014 HERMILO PARIKH OLERICULTURIST Ot 401.9 07/07/2014 BAIHERMILO HORTON OLERICULTURIST Ot 515 07/07/2014 BAIHERMILO HORTON OLERICULTURIST Ot 786.09 07/07/2014 BAIMAHERMILO L OLERICULTURIST Ot 786.50 07/07/2014 WEN VEGA, WADE Ramírez Ot 782.0 07/07/2014 WEN VEGA, WADE Ramírez Ot 784.0 07/07/2014 BÁRBARA HERNÁNDEZ DO Ot 278.00 07/07/2014 BÁRBARA HERNÁNDEZ DO Ot 305.1 07/07/2014 BÁRBARA HERNÁNDEZ DO Ot 496 07/07/2014 BÁRBARA HERNÁNDEZ DO Ot 786.09 07/07/2014 Ot 780.4 07/07/2014 Ot 782.0 07/07/2014 Ot 278.00 07/07/2014 Ot 296.90 07/07/2014 Ot 300.00 07/07/2014 Ot 305.1 07/07/2014 Ot 496 07/07/2014 Ot 729.81 07/07/2014 Ot 780.4 07/07/2014 Ot 786.09 07/07/2014 Ot 788.43 07/07/2014 Ot V12.79 07/07/2014 IRENAMENDOZABARBARA Earle LOGISTICS SYSTEM ENGINEER Ot V72.31 07/07/2014 IRENAMENDOZABARBARA A LOGISTICS SYSTEM ENGINEER Ot V76.12 07/07/2014 IRENAMENDOZABARBARA Earle LOGISTICS SYSTEM ENGINEER Ot V76.51 07/07/2014 RIGOBERTO HUBBARD MD Ot V72.84 07/07/2014 MARY CARRENO DO Ot 715.36 07/07/2014 MADL HASEEB L OLERICULTURIST Ot 721.3 07/29/2014 BÁRBARA HERNÁNDEZ DO Ot 305.1 07/29/2014 BÁRBARA HERNÁNDEZ DO Ot 496 08/14/2014 MADL LOGISTICS SYSTEM ENGINEER, HASEEB L 782.3 EDEMA 08/14/2014 MADL LOGISTICS SYSTEM ENGINEER, HASEEB L 782.3 EDEMA 08/28/2014 Ot 300.00 08/28/2014 Ot 305.1 08/28/2014 Ot 414.00 08/28/2014 Ot 496 08/28/2014 Ot 715.90 08/28/2014 Ot 729.81 09/07/2014 JASON LAHKANI MD Ot 722.52 LUMB/LUMBOSAC DISC DEGEN 10/02/2014 JASON LAKHANI MD Ot 721.3 LUMBOSACRAL SPONDYLOSIS 10/02/2014 JASON LAKHANI MD Ot V58.69 OTH MED,LT,CURRENT USE 10/09/2014 JASON LAKHANI MD Ot 721.3 LUMBOSACRAL SPONDYLOSIS 10/09/2014 JASON LAKHANI MD Ot V58.69 OTH MED,LT,CURRENT USE 04/16/2015 JANEY DRAPER LOGISTICS SYSTEM ENGINEER Ot F41.9 04/16/2015 JANEY DRAPER LOGISTICS SYSTEM ENGINEER Ot J44.9 04/16/2015 JANEY DRAPER LOGISTICS SYSTEM ENGINEER Ot J45.909 04/16/2015 JANEY DRAPER LOGISTICS SYSTEM ENGINEER Ot R05 04/16/2015 JANEY DRAPER LOGISTICS SYSTEM ENGINEER Ot Z72.0 05/05/2015 JANEY DRAPER LOGISTICS SYSTEM ENGINEER Ot F41.9 05/05/2015 JANEY DRAPER LOGISTICS SYSTEM ENGINEER Ot J44.9 05/05/2015 CORI DRAPERINE Sandra LOGISTICS SYSTEM ENGINEER Ot J45.909 05/05/2015 CORI DRAPERINE Sandra LOGISTICS SYSTEM ENGINEER Ot R05 05/05/2015 CORI DRAPERINE Sandra LOGISTICS SYSTEM ENGINEER Ot Z72.0 05/17/2015 CORI DRAPERINE Sandra LOGISTICS SYSTEM ENGINEER Ot F41.9 05/17/2015 CORI DRAPERINE Sandra LOGISTICS SYSTEM ENGINEER Ot J44.9 05/17/2015 CORI DRAPERINE Sandra LOGISTICS SYSTEM ENGINEER Ot J45.909 05/17/2015 CORI DRAPERINE Sandra LOGISTICS SYSTEM ENGINEER Ot R05 05/17/2015 JANEY DRAEPR LOGISTICS SYSTEM ENGINEER Ot Z72.0 08/04/2015 WAI , MARY Cortez Ot M22.41 08/04/2015 WAI , MARY Cortez Ot Z01.812 08/04/2015 WAI , MARY Cortez Ot Z11.2 08/13/2015 WAI , MARY Cortez Ot M22.41 08/13/2015 WAI , MARY Cortez Ot Z01.812 08/13/2015 WAI , MARY Cortez Ot Z11.2 09/09/2015 MADL, HASEEB L OLERICULTURIST Ot M54.5 09/09/2015 MADL, HASEEB L OLERICULTURIST Ot M84.48XA 09/20/2015 MARY CARRENO DO Ot M94.261 CHONDROMALACIA, RIGHT KNEE 09/28/2015 MADL, HASEEB L OLERICULTURIST Ot M54.5 LOW BACK PAIN 09/28/2015 MADL, HASEEB L OLERICULTURIST Ot M84.48XA PATHOLOGICAL FRACTURE, OTHER SITE, INIT 10/07/2015 MARY CARRENO DO Ot M94.261 CHONDROMALACIA, RIGHT KNEE 10/08/2015 MADL, HASEEB L OLERICULTURIST Ot M54.5 LOW BACK PAIN 10/08/2015 MADL, HASEEB L OLERICULTURIST Ot M84.48XA PATHOLOGICAL FRACTURE, OTHER SITE, INIT 11/26/2015 MARY CARRENO DO Ot M94.261 CHONDROMALACIA, RIGHT KNEE 01/19/2016 HERMILO PARIKH OLERICULTURIST Ot R07.89 OTHER CHEST PAIN 01/20/2016 HERMILO PARIKH OLERICULTURIST Ot E78.5 HYPERLIPIDEMIA, UNSPECIFIED 01/20/2016 BAIMA, HERMILO L OLERICULTURIST Ot I10 ESSENTIAL (PRIMARY) HYPERTENSION 01/20/2016 BAIMA, HERMILO L OLERICULTURIST Ot I25.10 ATHSCL HEART DISEASE OF [place] CORONARY 01/20/2016 BAIMA, HERMILO L OLERICULTURIST Ot I65.23 OCCLUSION AND STENOSIS OF BILATERAL UNGER 01/20/2016 BAIMA, HERMILO L OLERICULTURIST Ot J44.9 CHRONIC OBSTRUCTIVE PULMONARY DISEASE, U 01/20/2016 BAIMA, HERMILO L OLERICULTURIST Ot R00.2 PALPITATIONS 01/20/2016 BAIMA, HERMILO L OLERICULTURIST Ot R07.89 OTHER CHEST PAIN 01/20/2016 BAIMA, HERMILO L OLERICULTURIST Ot Z72.0 TOBACCO USE 01/20/2016 BAIMA, HERMILO L OLERICULTURIST Ot E78.5 HYPERLIPIDEMIA, UNSPECIFIED 01/20/2016 BAIMA, HERMILO L OLERICULTURIST Ot I10 ESSENTIAL (PRIMARY) HYPERTENSION 01/20/2016 BAIMA, HERMILO L OLERICULTURIST Ot I25.10 ATHSCL HEART DISEASE OF [place] CORONARY 01/20/2016 BAIMA, HERMILO L OLERICULTURIST Ot I65.23 OCCLUSION AND STENOSIS OF BILATERAL UNGER 01/20/2016 BAIMA, HERMILO L OLERICULTURIST Ot J44.9 CHRONIC OBSTRUCTIVE PULMONARY DISEASE, U 01/20/2016 BAIMA, HERMILO L OLERICULTURIST Ot R00.2 PALPITATIONS 01/20/2016 BAIMA, HERMILO L OLERICULTURIST Ot R07.89 OTHER CHEST PAIN 01/20/2016 BAIMA, HERMILO L OLERICULTURIST Ot Z72.0 TOBACCO USE 01/21/2016 BAIMA, HERMILO L OLERICULTURIST Ot E78.5 HYPERLIPIDEMIA, UNSPECIFIED 01/21/2016 BAIMA, HERMILO L OLERICULTURIST Ot I10 ESSENTIAL (PRIMARY) HYPERTENSION 01/21/2016 BAIMA, HERMILO L OLERICULTURIST Ot I25.10 ATHSCL HEART DISEASE OF [place] CORONARY 01/21/2016 BAIMA, HERMILO L OLERICULTURIST Ot I65.23 OCCLUSION AND STENOSIS OF BILATERAL UNGER 01/21/2016 BAIMA, HERMILO L OLERICULTURIST Ot J44.9 CHRONIC OBSTRUCTIVE PULMONARY DISEASE, U 01/21/2016 BAIMA, HERMILO L OLERICULTURIST Ot R00.2 PALPITATIONS 01/21/2016 BAIMA, HERMILO L OLERICULTURIST Ot R07.89 OTHER CHEST PAIN 01/21/2016 BAIMA, HERMILO L OLERICULTURIST Ot Z72.0 TOBACCO USE 01/21/2016 BAIMA, HERMILO L OLERICULTURIST Ot E78.5 HYPERLIPIDEMIA, UNSPECIFIED 01/21/2016 BAIMA, HERMILO L OLERICULTURIST Ot I10 ESSENTIAL (PRIMARY) HYPERTENSION 01/21/2016 BAIMA, HERMILO L OLERICULTURIST Ot I25.10 ATHSCL HEART DISEASE OF [place] CORONARY 01/21/2016 BAIMA, HERMILO L OLERICULTURIST Ot I65.23 OCCLUSION AND STENOSIS OF BILATERAL UNGER 01/21/2016 BAIMA, HERMILO L OLERICULTURIST Ot J44.9 CHRONIC OBSTRUCTIVE PULMONARY DISEASE, U 01/21/2016 BAIMA, HERMILO L OLERICULTURIST Ot R00.2 PALPITATIONS 01/21/2016 BAIMA, HERMILO L OLERICULTURIST Ot R07.89 OTHER CHEST PAIN 01/21/2016 BAIMA, HERMILO L OLERICULTURIST Ot Z72.0 TOBACCO USE 01/25/2016 BAIMA, HERMILO L OLERICULTURIST Ot E78.5 HYPERLIPIDEMIA, UNSPECIFIED 01/25/2016 BAIMA, HERMILO L OLERICULTURIST Ot I10 ESSENTIAL (PRIMARY) HYPERTENSION 01/25/2016 BAIMA, HERMILO L OLERICULTURIST Ot I25.10 ATHSCL HEART DISEASE OF [place] CORONARY 01/25/2016 BAIMA, HERMILO L OLERICULTURIST Ot I65.23 OCCLUSION AND STENOSIS OF BILATERAL UNGER 01/25/2016 BAIMA, HERMILO L OLERICULTURIST Ot J44.9 CHRONIC OBSTRUCTIVE PULMONARY DISEASE, U 01/25/2016 BAIMA, HERMILO L OLERICULTURIST Ot R00.2 PALPITATIONS 01/25/2016 BAIMA, HERMILO L OLERICULTURIST Ot R07.89 OTHER CHEST PAIN 01/25/2016 BAIMA, HERMILO L OLERICULTURIST Ot Z72.0 TOBACCO USE 01/26/2016 BAIMA, HERMILO L OLERICULTURIST Ot E78.5 HYPERLIPIDEMIA, UNSPECIFIED 01/26/2016 BAIMA, HERMILO L OLERICULTURIST Ot I10 ESSENTIAL (PRIMARY) HYPERTENSION 01/26/2016 BAIMA, HERMILO L OLERICULTURIST Ot I25.10 ATHSCL HEART DISEASE OF [place] CORONARY 01/26/2016 BAIMA, HERMILO L OLERICULTURIST Ot I65.23 OCCLUSION AND STENOSIS OF BILATERAL [place]GER 01/26/2016 BAIMA, HERMILO L OLERICULTURIST Ot J44.9 CHRONIC OBSTRUCTIVE PULMONARY DISEASE, U 01/26/2016 BAIMA, HERMILO L OLERICULTURIST Ot R00.2 PALPITATIONS 01/26/2016 BAIMA, HERMILO L OLERICULTURIST Ot R07.89 OTHER CHEST PAIN 01/26/2016 BAIMA, HERMILO L OLERICULTURIST Ot Z72.0 TOBACCO USE 02/03/2016 WEN VEGA, WADE Ramírez Ot 782.0 SKIN SENSATION DISTURB 02/03/2016 WEN VEGA, WADE Ramírez Ot 784.0 HEADACHE 02/11/2016 BAIMA, HERMILO L OLERICULTURIST Ot E78.5 HYPERLIPIDEMIA, UNSPECIFIED 02/11/2016 BAIMA, HERMILO L OLERICULTURIST Ot I10 ESSENTIAL (PRIMARY) HYPERTENSION 02/11/2016 BAIMA, HERMILO L OLERICULTURIST Ot I25.10 ATHSCL HEART DISEASE OF [place] CORONARY 02/11/2016 BAIMA, HERMILO L OLERICULTURIST Ot I65.23 OCCLUSION AND STENOSIS OF BILATERAL [place] 02/11/2016 BAIMA, HERMILO L OLERICULTURIST Ot J44.9 CHRONIC OBSTRUCTIVE PULMONARY DISEASE, U 02/11/2016 BAIMA, HERMILO L OLERICULTURIST Ot R00.2 PALPITATIONS 02/11/2016 BAIMA, HERMILO L OLERICULTURIST Ot R07.89 OTHER CHEST PAIN 02/11/2016 BAIMA, HERMILO L OLERICULTURIST Ot Z72.0 TOBACCO USE 02/11/2016 BAIMA, HERMILO L OLERICULTURIST Ot E78.5 HYPERLIPIDEMIA, UNSPECIFIED 02/11/2016 BAIMA, HERMILO L OLERICULTURIST Ot I10 ESSENTIAL (PRIMARY) HYPERTENSION 02/11/2016 BAIMA, HERMILO L OLERICULTURIST Ot I25.10 ATHSCL HEART DISEASE OF [place] CORONARY 02/11/2016 BAIMA, HERMILO L OLERICULTURIST Ot I65.23 OCCLUSION AND STENOSIS OF BILATER[place] 02/11/2016 BAIMA, HERMILO L OLERICULTURIST Ot J44.9 CHRONIC OBSTRUCTIVE PULMONARY DISEASE, U 02/11/2016 BAIMA, HERMILO L OLERICULTURIST Ot R00.2 PALPITATIONS 02/11/2016 BAIMA, HERMILO L OLERICULTURIST Ot R07.89 OTHER CHEST PAIN 02/11/2016 BAIMA, HERMILO L OLERICULTURIST Ot Z72.0 TOBACCO USE 02/22/2016 BAIMA, HERMILO L OLERICULTURIST Ot E78.5 HYPERLIPIDEMIA, UNSPECIFIED 02/22/2016 BAIMA, HERMILO L OLERICULTURIST Ot I10 ESSENTIAL (PRIMARY) HYPERTENSION 02/22/2016 BAIMA, HERMILO L OLERICULTURIST Ot I25.10 ATHSCL HEART DISEASE OF [place] CORONARY 02/22/2016 BAIMAOLGAHERMILO L OLERICULTURIST Ot I65.23 OCCLUSION AND STENOSIS OF BILATERAL UNGER 02/22/2016 BAIMA HERMILO L OLERICULTURIST Ot J44.9 CHRONIC OBSTRUCTIVE PULMONARY DISEASE, U 02/22/2016 BAIMA, HERMILO L OLERICULTURIST Ot R00.2 PALPITATIONS 02/22/2016 BAIMA, HERMILO L OLERICULTURIST Ot R07.89 OTHER CHEST PAIN 02/22/2016 BAIMA, HERMILO L OLERICULTURIST Ot Z72.0 TOBACCO USE 02/29/2016 BAIMA, HERMILO L OLERICULTURIST Ot E78.5 HYPERLIPIDEMIA, UNSPECIFIED 02/29/2016 BAIMA, HERMILO L OLERICULTURIST Ot I10 ESSENTIAL (PRIMARY) HYPERTENSION 02/29/2016 BAIMA, HERMILO L OLERICULTURIST Ot I25.10 ATHSCL HEART DISEASE OF [place] CORONARY 02/29/2016 BAIMA HERMILO L OLERICULTURIST Ot I65.23 OCCLUSION AND STENOSIS OF BILATERAL UNGER 02/29/2016 BAISOL HERMILO L OLERICULTURIST Ot J44.9 CHRONIC OBSTRUCTIVE PULMONARY DISEASE, U 02/29/2016 BAIMA, HERMILO L OLERICULTURIST Ot R00.2 PALPITATIONS 02/29/2016 BAIMA, HERMILO L OLERICULTURIST Ot R07.89 OTHER CHEST PAIN 02/29/2016 BAIMA, HERMILO L OLERICULTURIST Ot Z72.0 TOBACCO USE 03/04/2016 WADE CARVER MD Ot 782.0 SKIN SENSATION DISTURB 03/04/2016 WADE CARVER MD Ot 784.0 HEADACHE 07/05/2016 WADE CARVER MD Ot 782.0 SKIN SENSATION DISTURB 07/05/2016 WADE CARVER MD Ot 784.0 HEADACHE 09/13/2016 Ot 272.4 HYPERLIPIDEMIA NEC/NOS 09/13/2016 Ot 401.9 HYPERTENSION NOS 09/13/2016 Ot V58.69 OTH MED,LT, CURRENT USE 09/13/2016 Ot 611.71 MASTODYNIA 09/13/2016 Ot V72.84 EXAM PRE- OPERATIVE NOS 09/13/2016 Ot 244.9 HYPOTHYROIDISM NOS 09/13/2016 Ot 414.01 CORONARY ATHEROSCLEROSIS OF [place] CORON 09/13/2016 Ot V76.12 OTH SCREEN MAMMO-MALIGN NEOPLASM OF [place] 09/13/2016 NAA VEGA, AZALEA Cortez Ot 553.3 DIAPHRAGMATIC HERNIA 09/13/2016 NAA VEGA, AZALEA Cortez Ot 787.20 DYSPHAGIA, UNSPECIFIED 09/13/2016 THERESA VEGA FAC, REID FACP CCDS Ot 729.81 SWELLING OF LIMB 09/13/2016 ARMANI VEGA, BREEZY Ramírez Ot V72.84 EXAM PRE-OPERATIVE NOS 09/13/2016 KATI HERMILO L OLERICULTURIST Ot 401.9 HYPERTENSION NOS 09/13/2016 KATI HERMILO L OLERICULTURIST Ot 515 POSTINFLAM PULM FIBROSIS 09/13/2016 BAISOL HERMILO L OLERICULTURIST Ot 786.09 RESPIRATORY ABNORM NEC 09/13/2016 KATI HERMILO L OLERICULTURIST Ot 786.50 CHEST PAIN NOS 09/13/2016 WADE CARVER MD Ot 782.0 SKIN SENSATION DISTURB 09/13/2016 WADE CARVER MD Ot 784.0 HEADACHE 09/13/2016 BÁRBARA HERNÁNDEZ DO Ot 278.00 OBESITY, NOS 09/13/2016 BÁRBARA HERNÁNDEZ DO Ot 305.1 TOBACCO USE DISORDER 09/13/2016 BÁRBARA HERNÁNDEZ DO Ot 496 CHR AIRWAY OBSTRUCT NEC 09/13/2016 BÁRBARA HERNÁNDEZ DO Ot 786.09 RESPIRATORY ABNORM NEC 09/13/2016 Ot 780.4 DIZZINESS AND GIDDINESS 09/13/2016 Ot 782.0 SKIN SENSATION DISTURB 09/13/2016 Ot 278.00 OBESITY, NOS 09/13/2016 Ot 296.90 UNSPECIFIED EPISODIC MOOD DISORDER 09/13/2016 Ot 300.00 ANXIETY STATE NOS 09/13/2016 Ot 305.1 TOBACCO USE DISORDER 09/13/2016 Ot 496 CHR AIRWAY OBSTRUCT NEC 09/13/2016 Ot 729.81 SWELLING OF LIMB 09/13/2016 Ot 780.4 DIZZINESS AND GIDDINESS 09/13/2016 Ot 786.09 RESPIRATORY ABNORM NEC 09/13/2016 Ot 788.43 NOCTURIA 09/13/2016 Ot V12.79 PERSONAL HISTORY OTH SPEC DIGESTIVE SYST 09/13/2016 BARBARA OSBORN APRN Ot V72.31 ROUTINE GYNECOLOGICAL EXAMINATION 09/13/2016 BARBARA OSBORN APRN Ot V76.12 OTH SCREEN MAMMO-MALIGN NEOPLASM OF [place] 09/13/2016 BARBARA OSBORN APRN Ot V76.51 SCREEN MAL NEOP-COLON 09/13/2016 HAYDEE VEGA, RIGOBERTO Ot V72.84 EXAM PRE-OPERATIVE NOS 09/13/2016 MARY CARRENO DO Ot 715.36 LOC OSTEOARTH NOS-L/LEG 09/13/2016 HASEEB COOK OLERICULTURIST Ot 721.3 LUMBOSACRAL SPONDYLOSIS 09/13/2016 BÁRBARA HERNÁNDEZ DO Ot 305.1 TOBACCO USE DISORDER 09/13/2016 BÁRBARA HERNÁNDEZ DO Ot 496 CHR AIRWAY OBSTRUCT NEC 09/13/2016 Ot 300.00 ANXIETY STATE NOS 09/13/2016 Ot 305.1 TOBACCO USE DISORDER 09/13/2016 Ot 414.00 CORON ATHEROSCLER NOS TYPE VESSEL, NATIV 09/13/2016 Ot 496 CHR AIRWAY OBSTRUCT NEC 09/13/2016 Ot 715.90 OSTEOARTHROS NOS-UNSPEC 09/13/2016 Ot 729.81 SWELLING OF LIMB 09/13/2016 JANEY DRAPER APRN Ot F41.9 ANXIETY DISORDER, UNSPECIFIED 09/13/2016 JANEY DRAPER APRN Ot J44.9 CHRONIC OBSTRUCTIVE PULMONARY DISEASE, U 09/13/2016 JANEY DRAPER APRN Ot J45.909 UNSPECIFIED ASTHMA, UNCOMPLICATED 09/13/2016 JANEY DRAPER APRN Ot R05 COUGH 09/13/2016 JANEY DRAPER APRN Ot Z72.0 TOBACCO USE 09/13/2016 MARY CARRENO DO Ot M17.11 UNILATERAL PRIMARY OSTEOARTHRITIS, RIGHT 09/13/2016 MARY CARRENO DO Ot M22.41 CHONDROMALACIA PATELLAE, RIGHT KNEE 09/13/2016 MARY CARRENO DO Ot Z01.812 ENCOUNTER FOR PREPROCEDURAL LABORATORY E 09/13/2016 MARY CARRENO DO Ot Z11.2 ENCOUNTER FOR SCREENING FOR OTHER BACTER 09/13/2016 HASEEB COOK OLERICULTURIST Ot M54.5 LOW BACK PAIN 09/13/2016 HASEEB COOK OLERICULTURIST Ot M84.48XA PATHOLOGICAL FRACTURE, OTHER SITE, INIT 09/13/2016 MARY CARRENO DO Ot M94.261 CHONDROMALACIA, RIGHT KNEE 09/13/2016 HERMILO PARIKH OLERICULTURIST Ot E78.5 HYPERLIPIDEMIA, UNSPECIFIED 09/13/2016 BAIMA, HERMILO L OLERICULTURIST Ot I10 ESSENTIAL (PRIMARY) HYPERTENSION 09/13/2016 BAIMA, HERMILO L OLERICULTURIST Ot I25.10 ATHSCL HEART DISEASE OF [place] CORONARY 09/13/2016 BAIMA, HERMILO L OLERICULTURIST Ot I65.23 OCCLUSION AND STENOSIS OF BILATERAL [place]GER 09/13/2016 BAIMA, HERMILO L OLERICULTURIST Ot J44.9 CHRONIC OBSTRUCTIVE PULMONARY DISEASE, U 09/13/2016 BAIMA, HERMILO L OLERICULTURIST Ot R00.2 PALPITATIONS 09/13/2016 BAIMA, HERMILO L OLERICULTURIST Ot R07.89 OTHER CHEST PAIN 09/13/2016 BAIMA, HERMILO L OLERICULTURIST Ot Z72.0 TOBACCO USE 09/13/2016 BAIMA, HERMILO L OLERICULTURIST Ot E78.5 HYPERLIPIDEMIA, UNSPECIFIED 09/13/2016 BAIMA, HERMILO L OLERICULTURIST Ot I10 ESSENTIAL (PRIMARY) HYPERTENSION 09/13/2016 BAIMA, HERMILO L OLERICULTURIST Ot I25.10 ATHSCL HEART DISEASE OF [place] CORONARY 09/13/2016 BAIMA, HERMILO L OLERICULTURIST Ot I65.23 OCCLUSION AND STENOSIS OF BILATERAL [place] 09/13/2016 BAIMA, HERMILO L OLERICULTURIST Ot J44.9 CHRONIC OBSTRUCTIVE PULMONARY DISEASE, U 09/13/2016 BAIMA, HERMILO L OLERICULTURIST Ot R00.2 PALPITATIONS 09/13/2016 BAIMA, HERMILO L OLERICULTURIST Ot R07.89 OTHER CHEST PAIN 09/13/2016 BAIMA, HERMILO L OLERICULTURIST Ot Z72.0 TOBACCO USE 10/23/2016 JANEY DRAPER LOGISTICS SYSTEM ENGINEER Ot J44.9 CHRONIC OBSTRUCTIVE PULMONARY DISEASE, U 10/23/2016 CORI DRAPERINE E LOGISTICS SYSTEM ENGINEER Ot R05 COUGH 10/23/2016 JANEY DRAPER E LOGISTICS SYSTEM ENGINEER Ot R06.02 SHORTNESS OF BREATH 10/23/2016 JANEY DRAPER E LOGISTICS SYSTEM ENGINEER Ot Z72.0 TOBACCO USE 11/01/2016 JANEY DRAPER LOGISTICS SYSTEM ENGINEER Ot J44.9 CHRONIC OBSTRUCTIVE PULMONARY DISEASE, U 11/01/2016 JANEY DRPAER E LOGISTICS SYSTEM ENGINEER Ot R05 COUGH 11/01/2016 CORI DRAPERINE E LOGISTICS SYSTEM ENGINEER Ot R06.02 SHORTNESS OF BREATH 11/01/2016 JANEY DRAPER E LOGISTICS SYSTEM ENGINEER Ot Z72.0 TOBACCO USE 11/13/2016 THERESA VEGA [facility], ALI FACP CCDS Ot I25.10 ATHSCL HEART DISEASE OF [place] CORONARY 11/13/2016 THERESA VEGA [facility], ALI FACP CCDS Ot I65.23 OCCLUSION AND STENOSIS OF BILATERAL UNGER 11/13/2016 THERESA VEGA [facility], ALI FACP CCDS Ot I73.9 PERIPHERAL VASCULAR DISEASE, UNSPECIFIED 11/13/2016 THERESA VEGA [facility], ALI FACP CCDS Ot R06.02 SHORTNESS OF BREATH 11/13/2016 THERESA VEGA [facility], ALI FACP CCDS Ot Z72.0 TOBACCO USE 02/02/2017 WADE CARVER MD Ot 782.0 SKIN SENSATION DISTURB 02/02/2017 WADE CARVER MD Ot 784.0 HEADACHE 03/04/2017 WADE CARVER MD Ot 782.0 SKIN SENSATION DISTURB 03/04/2017 WADE CARVER MD Ot 784.0 HEADACHE 08/02/2017 Ot V72.84 EXAM PRE- OPERATIVE NOS 08/02/2017 Ot 244.9 HYPOTHYROIDISM NOS 08/02/2017 Ot 414.01 CORONARY ATHEROSCLEROSIS OF [place] CORON 08/02/2017 Ot V76.12 OTH SCREEN MAMMO-MALIGN NEOPLASM OF [place] 08/02/2017 NAA VEGA, AZALEA Cortez Ot 553.3 DIAPHRAGMATIC HERNIA 08/02/2017 NAA VEGA, AZALEA Cortez Ot 787.20 DYSPHAGIA, UNSPECIFIED 08/02/2017 THERESA VEGA [facility], ALI FACP CCDS Ot 729.81 SWELLING OF LIMB 08/02/2017 ARMANI VEGA, BREEZY Ramírez Ot V72.84 EXAM PRE-OPERATIVE NOS 08/02/2017 BAIMAHERMILO L OLERICULTURIST Ot 401.9 HYPERTENSION NOS 08/02/2017 BAIMA HERMILO L OLERICULTURIST Ot 515 POSTINFLAM PULM FIBROSIS 08/02/2017 BAIMA HERMILO L OLERICULTURIST Ot 786.09 RESPIRATORY ABNORM NEC 08/02/2017 BAISOL HERMILO L OLERICULTURIST Ot 786.50 CHEST PAIN NOS 08/02/2017 WADE CARVER MD Ot 782.0 SKIN SENSATION DISTURB 08/02/2017 WADE CARVER MD Ot 784.0 HEADACHE 08/02/2017 BÁRBARA HERNÁNDEZ DO Ot 278.00 OBESITY, NOS 08/02/2017 BÁRBARA HERNÁNDEZ DO Ot 305.1 TOBACCO USE DISORDER 08/02/2017 BÁRBARA HERNÁNDEZ DO Ot 496 CHR AIRWAY OBSTRUCT NEC 08/02/2017 BÁRBARA HERNÁNDEZ DO Ot 786.09 RESPIRATORY ABNORM NEC 08/02/2017 Ot 780.4 DIZZINESS AND GIDDINESS 08/02/2017 Ot 782.0 SKIN SENSATION DISTURB 08/02/2017 Ot 278.00 OBESITY, NOS 08/02/2017 Ot 296.90 UNSPECIFIED EPISODIC MOOD DISORDER 08/02/2017 Ot 300.00 ANXIETY STATE NOS 08/02/2017 Ot 305.1 TOBACCO USE DISORDER 08/02/2017 Ot 496 CHR AIRWAY OBSTRUCT NEC 08/02/2017 Ot 729.81 SWELLING OF LIMB 08/02/2017 Ot 780.4 DIZZINESS AND GIDDINESS 08/02/2017 Ot 786.09 RESPIRATORY ABNORM NEC 08/02/2017 Ot 788.43 NOCTURIA 08/02/2017 Ot V12.79 PERSONAL HISTORY OTH SPEC DIGESTIVE SYST 08/02/2017 BARBARA OSBORN LOGISTICS SYSTEM ENGINEER Ot V72.31 ROUTINE GYNECOLOGICAL EXAMINATION 08/02/2017 BARBARA OSBORN LOGISTICS SYSTEM ENGINEER Ot V76.12 OTH SCREEN MAMMO-MALIGN NEOPLASM OF [place] 08/02/2017 BARBARA OSBORN LOGISTICS SYSTEM ENGINEER Ot V76.51 SCREEN MAL NEOP-COLON 08/02/2017 RIGOBERTO HUBBARD MD Ot V72.84 EXAM PRE-OPERATIVE NOS 08/02/2017 MARY CARRENO DO Ot 715.36 LOC OSTEOARTH NOS-L/LEG 08/02/2017 HASEEB COOK OLERICULTURIST Ot 721.3 LUMBOSACRAL SPONDYLOSIS 08/02/2017 BÁRBARA HERNÁNDEZ DO Ot 305.1 TOBACCO USE DISORDER 08/02/2017 BÁRBARA HERNÁNDEZ DO Ot 496 CHR AIRWAY OBSTRUCT NEC 08/02/2017 Ot 300.00 ANXIETY STATE NOS 08/02/2017 Ot 305.1 TOBACCO USE DISORDER 08/02/2017 Ot 414.00 CORON ATHEROSCLER NOS TYPE VESSEL, NATIV 08/02/2017 Ot 496 CHR AIRWAY OBSTRUCT NEC 08/02/2017 Ot 715.90 OSTEOARTHROS NOS-UNSPEC 08/02/2017 Ot 729.81 SWELLING OF LIMB 08/02/2017 BONNY, JANEY E LOGISTICS SYSTEM ENGINEER Ot F41.9 ANXIETY DISORDER, UNSPECIFIED 08/02/2017 BONNY JANEY Flores LOGISTICS SYSTEM ENGINEER Ot J44.9 CHRONIC OBSTRUCTIVE PULMONARY DISEASE, U 08/02/2017 BONNY JANEY Flores LOGISTICS SYSTEM ENGINEER Ot J45.909 UNSPECIFIED ASTHMA, UNCOMPLICATED 08/02/2017 JANEY DRAPER LOGISTICS SYSTEM ENGINEER Ot R05 COUGH 08/02/2017 JANEY DRAPER APRN Ot Z72.0 TOBACCO USE 08/02/2017 WAI MARY Cortez Ot M17.11 UNILATERAL PRIMARY OSTEOARTHRITIS, RIGHT 08/02/2017 WAI DO, MARY F Ot M22.41 CHONDROMALACIA PATELLAE, RIGHT KNEE 08/02/2017 WAI MARY Diego Ot Z01.812 ENCOUNTER FOR PREPROCEDURAL LABORATORY E 08/02/2017 WAI VACA MARY Cortez Ot Z11.2 ENCOUNTER FOR SCREENING FOR OTHER BACTER 08/02/2017 HASEEB COOK OLERICULTURIST Ot M54.5 LOW BACK PAIN 08/02/2017 HASEEB COOK OLERICULTURIST Ot M84.48XA PATHOLOGICAL FRACTURE, OTHER SITE, INIT 08/02/2017 WAI DO MARY Cortez Ot M94.261 CHONDROMALACIA, RIGHT KNEE 08/02/2017 HERMILO PARIKH L OLERICULTURIST Ot E78.5 HYPERLIPIDEMIA, UNSPECIFIED 08/02/2017 KATI HERMILO L OLERICULTURIST Ot I10 ESSENTIAL (PRIMARY) HYPERTENSION 08/02/2017 KATI HERMILO L OLERICULTURIST Ot I25.10 ATHSCL HEART DISEASE OF [place] CORONARY 08/02/2017 HERMILO PARIKH L OLERICULTURIST Ot I65.23 OCCLUSION AND STENOSIS OF BILATERAL UNGER 08/02/2017 HERMILO PARIKH L OLERICULTURIST Ot J44.9 CHRONIC OBSTRUCTIVE PULMONARY DISEASE, U 08/02/2017 BAIMA HERMILO L OLERICULTURIST Ot R00.2 PALPITATIONS 08/02/2017 BAIMA HERMILO L OLERICULTURIST Ot R07.89 OTHER CHEST PAIN 08/02/2017 OLGA PARIKHHER L OLERICULTURIST Ot Z72.0 TOBACCO USE 08/02/2017 BAISOL HERMILO L OLERICULTURIST Ot E78.5 HYPERLIPIDEMIA, UNSPECIFIED 08/02/2017 BAIMA, HERMILO L OLERICULTURIST Ot I10 ESSENTIAL (PRIMARY) HYPERTENSION 08/02/2017 BAIMA HERMILO L OLERICULTURIST Ot I25.10 ATHSCL HEART DISEASE OF [place] CORONARY 08/02/2017 HERMILO PARIKH OLERICULTURIST Ot I65.23 OCCLUSION AND STENOSIS OF BILATERAL UNGER 08/02/2017 HERMILO PARIKH OLERICULTURIST Ot J44.9 CHRONIC OBSTRUCTIVE PULMONARY DISEASE, U 08/02/2017 HERMILO PARIKH OLERICULTURIST Ot R00.2 PALPITATIONS 08/02/2017 HERMILO PARIKH OLERICULTURIST Ot R07.89 OTHER CHEST PAIN 08/02/2017 HERMILO PARIKH OLERICULTURIST Ot Z72.0 TOBACCO USE 08/02/2017 JANEY DRAPER E LOGISTICS SYSTEM ENGINEER Ot J44.9 CHRONIC OBSTRUCTIVE PULMONARY DISEASE, U 08/02/2017 BONNYCORI PALOMARESINE E LOGISTICS SYSTEM ENGINEER Ot R05 COUGH 08/02/2017 BONNYCORI PALOMARESINE E LOGISTICS SYSTEM ENGINEER Ot R06.02 SHORTNESS OF BREATH 08/02/2017 JANEY DRAPER E LOGISTICS SYSTEM ENGINEER Ot Z72.0 TOBACCO USE 08/02/2017 THERESA VEGA FACC, ALI FACP CCDS Ot I25.10 ATHSCL HEART DISEASE OF [place] CORONARY 08/02/2017 THERESA VEGA FACC, ALI FACP CCDS Ot I65.23 OCCLUSION AND STENOSIS OF BILATERAL UNGER 08/02/2017 THERESA VEGA FACC, ALI FACP CCDS Ot I73.9 PERIPHERAL VASCULAR DISEASE, UNSPECIFIED 08/02/2017 THERESA EVGA FACC, ALI FACP CCDS Ot R06.02 SHORTNESS OF BREATH 08/02/2017 THERESA VEGA FACC, ALI FACP CCDS Ot Z72.0 TOBACCO USE 08/07/2017 NATALIE ALVA DO Ot M41.86 OTHER FORMS OF SCOLIOSIS, LUMBAR REGION 08/07/2017 NATALIE ALVA DO Ot M47.816 SPONDYLOSIS W/O MYELOPATHY OR RADICULOPA 08/07/2017 NATALIE ALVA DO Ot M48.061 SPINAL STENOSIS, LUMBAR REGION WITHOUT N 08/12/2017 NATALIE ALVA DO Ot M41.86 OTHER FORMS OF SCOLIOSIS, LUMBAR REGION 08/12/2017 NATALIE ALVA DO Ot M47.816 SPONDYLOSIS W/O MYELOPATHY OR RADICULOPA 08/12/2017 NATALIE ALVA DO Ot M48.061 SPINAL STENOSIS, LUMBAR REGION WITHOUT N 08/29/2017 NATALIE ALVA DO Ot M41.86 OTHER FORMS OF SCOLIOSIS, LUMBAR REGION 08/29/2017 NATALIE ALVA DO Ot M47.816 SPONDYLOSIS W/O MYELOPATHY OR RADICULOPA 08/29/2017 NATALIE ALVA DO Ot M48.061 SPINAL STENOSIS, LUMBAR REGION WITHOUT N 09/07/2017 NATALIE ALVA DO Ot M41.86 OTHER FORMS OF SCOLIOSIS, LUMBAR REGION 09/07/2017 NATALIE ALVA DO Ot M47.816 SPONDYLOSIS W/O MYELOPATHY OR RADICULOPA 09/07/2017 NATALIE ALVA DO Ot M48.061 SPINAL STENOSIS, LUMBAR REGION WITHOUT N 10/18/2017 NATALIE ALVA DO Ot M48.061 SPINAL STENOSIS, LUMBAR REGION WITHOUT N 10/18/2017 NATALIE ALVA DO Ot Z01.812 ENCOUNTER FOR PREPROCEDURAL LABORATORY E 10/18/2017 NIDA VACA NATALIE Ramírez Ot Z11.2 ENCOUNTER FOR SCREENING FOR OTHER BACTER Procedures Code [place] [address] EKG, TRACING (IN-HOUSE) 06/07/2012 BREEZY MCLEAN 06/10/2012 Cardiolog [place] 06/13/2012 General S Breezy Parekh 06/14/2012 74340 ROUTINE VENIPUNCTURE 08/02/2012 78556 MAMMOGRAM, SCREENING 08/02/2012 20611 TSH 08/02/2012 Orthopedi Thad Fermin 09/20/2012 99001 UA W/ CULTURE IF INDICATED 09/25/2012 72913 CULTURE URINE 09/26/2012 92901 ROUTINE VENIPUNCTURE 10/25/2012 56397 JOINT INJECTION- INTERMEDIATE JOINT 10/25/2012 55329 CBC 10/25/2012 33383 CMP 10/25/2012 9482255 GFR CALC (RESULT ONLY) 10/25/2012 11526 ESR/SED RATE 10/25/2012 57303 CRP 10/25/2012 19139 A1C (RML) 10/25/2012 13111 HEPATITIS PROFILE 10/25/2012 76036 RA FACTOR 10/26/2012 ANAANA EDUARDO ANALYZER (SCREEN) 10/26/2012 15904 BARIUM SWALLOW XRAY 11/01/2012 19986 ROUTINE VENIPUNCTURE 11/01/2012 11560 CPK 11/02/2012 11838 LDH 11/02/2012 50273 ALDOLASE 11/05/2012 53690 CCP ANTIBODY 11/09/2012 Physical Physical Therapy, [facility] 11/25/2012 62516 THERAPUTIC INJ SQ/IM 11/29/2012 J1885 TORADOL INJ 11/29/2012 J1885 TORADOL INJ 12/04/2012 78861 THERAPUTIC INJ SQ/IM 12/04/2012 Physical Physical Therapy 12/09/2012 36802 UA W/ CULTURE IF INDICATED 02/07/2013 75696 CULTURE URINE 02/09/2013 29671 FLUARIX QUAD 3 YEARS & OLDER 02/10/2013 G0008 FLU ADMINISTRATION ( MEDICARE ONLY) 02/10/2013 01229 ROUTINE VENIPUNCTURE 02/18/2013 88965 BMP 02/19/2013 62947 MAGNESIUM 02/19/2013 7545809 GFR CALC (RESULT ONLY) 02/19/[address] HEAD/BRAIN W/O & W/DYE 02/20/2013 25813 SLEEP STUDY 02/20/2013 53104 VIT B 12 02/21/2013 62532 ROUTINE VENIPUNCTURE 03/11/2013 93106 EVENT MONITOR 03/14/2013 44795 METHYLMELONIC 03/16/2013 72433 UA W/ CULTURE IF INDICATED 04/29/2013 13696 CULTURE URINE 04/30/2013 Neurology Marv Vora 05/02/2013 51029 ROUTINE VENIPUNCTURE 07/22/2013 45145 A1C (IN-HOUSE) 07/22/2013 45239 LIPID PANEL 07/22/2013 81460 CBC 07/22/2013 22362 CMP 07/22/2013 1668225 GFR CALC (RESULT ONLY) 07/22/2013 79450 TSH 07/22/2013 79775 ROUTINE VENIPUNCTURE 09/29/2013 97396 GLUCOSE LUCA 2 HOUR 09/29/2013 29746 A1C (IN-HOUSE) 10/09/2013 76316 MICRO ALBUMIN-IN HOUSE 10/09/2013 70539 MAMMOGRAM, SCREENING 10/16/2013 GENERAL S ANGELITA HUBBARD 10/16/2013 12322 UA W/ CULTURE IF INDICATED 10/16/2013 90632 HEMOCCULT 10/16/2013 28840 CULTURE URINE 10/19/2013 93412 UA W/ CULTURE IF INDICATED 11/26/2013 57487 CULTURE URINE 11/27/2013 92914 ROUTINE VENIPUNCTURE 12/24/2013 3867823 GFR CALC (RESULT ONLY) 12/24/2013 98679 [facility] 12/24/2013 34757 TSH 12/24/2013 89505 ROUTINE VENIPUNCTURE 04/13/2014 G0008 FLU ADMINISTRATION ( MEDICARE ONLY) 04/13/2014 43522 A1C (IN-HOUSE) 04/13/20147960595 GFR CALC (RESULT ONLY) 04/13/2014 63848 [facility] 04/13/2014 47952 MRI SPINE (LUMBAR) W & W/O CONTRAST 04/26/2014 74448 XRAY LUMBAR SPINE 2 OR 3 VIEWS 05/06/2014 84554 [facility] 05/06/2014 82835 TSH 05/06/2014 08628 ROUTINE VENIPUNCTURE 06/08/2014 40614 CBC 06/08/20147822342 GFR CALC (RESULT ONLY) 06/08/2014 80672 [facility] 06/08/2014 48532 UA W/ CULTURE IF INDICATED 07/07/2014 63261 CULTURE URINE 07/09/2014 96870 ROUTINE VENIPUNCTURE 08/31/20148634569 GFR CALC (RESULT ONLY) 08/31/2014 92246 [facility] 08/31/2014 16966 BNP 08/31/2014 Results Test Result Range CBC With Differential/Platelet - 02/03/16 11:30 WBC 8.8 x10E3/uL 3.4-10.8 RBC 5.09 x10E6/uL 3.77-5.28 Hemoglobin 14.8 g/dL 11.1-15.9 Hematocrit 43.6 % 34.0-46.6 MCV 86 fL 79-97 MCH 29.1 pg 26.6-33.0 MCHC 33.9 g/dL 31.5-35.7 RDW 14.4 % 12.3-15.4 Platelets 233 x10E3/uL 150-379 Neutrophils 54 % Lymphs 37 % Monocytes 8 % Eos 1 % Basos 0 % Neutrophils (Absolute) 4.8 x10E3/uL 1.4-7.0 Lymphs (Absolute) 3.2 x10E3/uL 0.7-3.1 Monocytes(Absolute) 0.7 x10E3/uL 0.1-0.9 Eos (Absolute) 0.1 x10E3/uL 0.0-0.4 Baso (Absolute) 0.0 x10E3/uL 0.0-0.2 Immature Granulocytes 0 % Immature Grans (Abs) 0.0 x10E3/uL 0.0-0.1 Comp. Metabolic Panel (14) - 02/03/16 11:30 Glucose, Serum 95 mg/dL 65-99 BUN 7 mg/dL 6-24 Creatinine, Serum 0.96 mg/dL 0.57-1.00 eGFR If NonAfricn Am 66 mL/min/1.73 >59 eGFR If Africn Am 76 mL/min/1.73 >59 BUN/Creatinine Ratio 7 9-23 Sodium, Serum 145 mmol/L 134-144 Potassium, Serum 3.9 mmol/L 3.5-5.2 Chloride, Serum 105 mmol/L 97-108 Carbon Dioxide, Total 23 mmol/L 18-29 Calcium, Serum 9.0 mg/dL 8.7-10.2 Protein, Total, Serum 6.5 g/dL 6.0-8.5 Albumin, Serum 4.2 g/dL 3.5-5.5 Globulin, Total 2.3 g/dL 1.5-4.5 A/G Ratio 1.8 1.1-2.5 Bilirubin, Total 0.2 mg/dL 0.0-1.2 Alkaline Phosphatase, S 117 IU/L 39-117 AST (SGOT) 10 IU/L 0-40 ALT (SGPT) 14 IU/L 0-32 CBC With Differential/Platelet - 05/25/16 14:25 WBC 7.6 x10E3/uL 3.4-10.8 RBC 4.71 x10E6/uL 3.77-5.28 Hemoglobin 13.5 g/dL 11.1-15.9 Hematocrit 40.0 % 34.0-46.6 MCV 85 fL 79-97 MCH 28.7 pg 26.6-33.0 MCHC 33.8 g/dL 31.5-35.7 RDW 14.7 % 12.3-15.4 Platelets 235 x10E3/uL 150-379 Neutrophils 48 % Lymphs 44 % Monocytes 7 % Eos 1 % Basos 0 % Neutrophils (Absolute) 3.6 x10E3/uL 1.4-7.0 Lymphs (Absolute) 3.3 x10E3/uL 0.7-3.1 Monocytes(Absolute) 0.5 x10E3/uL 0.1-0.9 Eos (Absolute) 0.0 x10E3/uL 0.0-0.4 Baso (Absolute) 0.0 x10E3/uL 0.0-0.2 Immature Granulocytes 0 % Immature Grans (Abs) 0.0 x10E3/uL 0.0-0.1 Comp. Metabolic Panel (14) - 05/25/16 14:25 Glucose, Serum 85 mg/dL 65-99 BUN 6 mg/dL 6-24 Creatinine, Serum 0.89 mg/dL 0.57-1.00 eGFR If NonAfricn Am 72 mL/min/1.73 >59 eGFR If Africn Am 83 mL/min/1.73 >59 BUN/Creatinine Ratio 7 9-23 Sodium, Serum 144 mmol/L 134-144 Potassium, Serum 4.2 mmol/L 3.5-5.2 Chloride, Serum 104 mmol/L 96-106 Carbon Dioxide, Total 25 mmol/L 18-29 Calcium, Serum 8.6 mg/dL 8.7-10.2 Protein, Total, Serum 6.1 g/dL 6.0-8.5 Albumin, Serum 4.0 g/dL 3.5-5.5 Globulin, Total 2.1 g/dL 1.5-4.5 A/G Ratio 1.9 1.1-2.5 Bilirubin, Total <0.2 mg/dL 0.0-1.2 Alkaline Phosphatase, S 131 IU/L 39-117 AST (SGOT) 18 IU/L 0-40 ALT (SGPT) 26 IU/L 0-32 CBC With Differential/Platelet - 10/17/16 12:00 WBC 8.5 x10E3/uL 3.4-10.8 RBC 4.99 x10E6/uL 3.77-5.28 Hemoglobin 13.9 g/dL 11.1-15.9 Hematocrit 43.4 % 34.0-46.6 MCV 87 fL 79-97 MCH 27.9 pg 26.6-33.0 MCHC 32.0 g/dL 31.5-35.7 RDW 15.0 % 12.3-15.4 Platelets 230 x10E3/uL 150-379 Neutrophils 51 % Lymphs 40 % Monocytes 8 % Eos 1 % Basos 0 % Neutrophils (Absolute) 4.4 x10E3/uL 1.4-7.0 Lymphs (Absolute) 3.4 x10E3/uL 0.7-3.1 Monocytes(Absolute) 0.7 x10E3/uL 0.1-0.9 Eos (Absolute) 0.1 x10E3/uL 0.0-0.4 Baso (Absolute) 0.0 x10E3/uL 0.0-0.2 Immature Granulocytes 0 % Immature Grans (Abs) 0.0 x10E3/uL 0.0-0.1 Comp. Metabolic Panel (14) - 10/17/16 12:00 Glucose, Serum 90 mg/dL 65-99 BUN 10 mg/dL 6-24 Creatinine, Serum 0.97 mg/dL 0.57-1.00 eGFR If NonAfricn Am 65 mL/min/1.73 >59 eGFR If Africn Am 74 mL/min/1.73 >59 BUN/Creatinine Ratio 10 9-23 Sodium, Serum 141 mmol/L 134-144 Potassium, Serum 4.2 mmol/L 3.5-5.2 Chloride, Serum 103 mmol/L 96-106 Carbon Dioxide, Total 24 mmol/L 18-29 Calcium, Serum 8.7 mg/dL 8.7-10.2 Protein, Total, Serum 6.6 g/dL 6.0-8.5 Albumin, Serum 4.1 g/dL 3.5-5.5 Globulin, Total 2.5 g/dL 1.5-4.5 A/G Ratio 1.6 1.2-2.2 Bilirubin, Total 0.3 mg/dL 0.0-1.2 Alkaline Phosphatase, S 139 IU/L 39-117 AST (SGOT) 18 IU/L 0-40 ALT (SGPT) 26 IU/L 0-32 Magnesium, Serum - 10/17/16 12:00 Magnesium, Serum 2.2 mg/dL 1.6-2.3 CBC With Differential/Platelet - 02/14/17 14:11 WBC 8.5 x10E3/uL 3.4-10.8 RBC 4.76 x10E6/uL 3.77-5.28 Hemoglobin 13.9 g/dL 11.1-15.9 Hematocrit 41.1 % 34.0-46.6 MCV 86 fL 79-97 MCH 29.2 pg 26.6-33.0 MCHC 33.8 g/dL 31.5-35.7 RDW 14.6 % 12.3-15.4 Platelets 237 x10E3/uL 150-379 Neutrophils 42 % Lymphs 48 % Monocytes 9 % Eos 1 % Basos 0 % Neutrophils (Absolute) 3.6 x10E3/uL 1.4-7.0 Lymphs (Absolute) 4.0 x10E3/uL 0.7-3.1 Monocytes(Absolute) 0.7 x10E3/uL 0.1-0.9 Eos (Absolute) 0.1 x10E3/uL 0.0-0.4 Baso (Absolute) 0.0 x10E3/uL 0.0-0.2 Immature Granulocytes 0 % Immature Grans (Abs) 0.0 x10E3/uL 0.0-0.1 Comp. Metabolic Panel (14) - 02/14/17 14:11 Glucose, Serum 86 mg/dL 65-99 BUN 8 mg/dL 6-24 Creatinine, Serum 1.01 mg/dL 0.57-1.00 eGFR If NonAfricn Am 62 mL/min/1.73 >59 eGFR If Africn Am 71 mL/min/1.73 >59 BUN/Creatinine Ratio 8 9-23 Sodium, Serum 143 mmol/L 134-144 Potassium, Serum 4.0 mmol/L 3.5-5.2 Chloride, Serum 102 mmol/L 96-106 Carbon Dioxide, Total 25 mmol/L 18-29 Calcium, Serum 8.8 mg/dL 8.7-10.2 Protein, Total, Serum 6.2 g/dL 6.0-8.5 Albumin, Serum 3.9 g/dL 3.5-5.5 Globulin, Total 2.3 g/dL 1.5-4.5 A/G Ratio 1.7 1.2-2.2 Bilirubin, Total <0.2 mg/dL 0.0-1.2 Alkaline Phosphatase, S 125 IU/L 39-117 AST (SGOT) 12 IU/L 0-40 ALT (SGPT) 21 IU/L 0-32 CMP - 02/14/17 14:11 Glucose, Serum 86 mg/dL 65-99 BUN 8 mg/dL 6-24 Creatinine, Serum 1.01 mg/dL 0.57-1.00 eGFR If NonAfricn Am 62 mL/min/1.73 >59 eGFR If Africn Am 71 mL/min/1.73 >59 BUN/Creatinine Ratio 8 9-23 Sodium, Serum 143 mmol/L 134-144 Potassium, Serum 4.0 mmol/L 3.5-5.2 Chloride, Serum 102 mmol/L 96-106 Carbon Dioxide, Total 25 mmol/L 18-29 Calcium, Serum 8.8 mg/dL 8.7-10.2 Protein, Total, Serum 6.2 g/dL 6.0-8.5 Albumin, Serum 3.9 g/dL 3.5-5.5 Globulin, Total 2.3 g/dL 1.5-4.5 A/G Ratio 1.7 1.2-2.2 Bilirubin, Total <0.2 mg/dL 0.0-1.2 Alkaline Phosphatase, S 125 IU/L 39-117 AST (SGOT) 12 IU/L 0-40 ALT (SGPT) 21 IU/L 0-32 LIPID PANEL - 07/04/17 12:52 CHOLESTEROL, TOTAL 153 mg/dL <200 HDL CHOLESTEROL 45 mg/dL >50 TRIGLYCERIDES 142 mg/dL <150 LDL-CHOLESTEROL 84 mg/dL (calc) NRG CHOL/HDLC RATIO 3.4 (calc) <5.0 NON HDL CHOLESTEROL 108 mg/dL (calc) <130 CMP - 07/04/17 12:52 GLUCOSE 95 mg/dL 65-99 UREA NITROGEN (BUN) 12 mg/dL 7-25 CREATININE 1.00 mg/dL 0.50-1.05 eGFR NON-AFR. PU[place] RICAN 62 mL/min/1.73m2 > OR=60 eGFR 71 mL/min/1.73m2 > OR=60 BUN/CREATININE RATIO NOT APPLICABLE (calc) 6-22 SODIUM 141 mmol/L 135-146 POTASSIUM 3.9 mmol/L 3.5-5.3 CHLORIDE 106 mmol/L 98-110 CARBON DIOXIDE 27 mmol/L 20-31 CALCIUM 8.9 mg/dL 8.6-10.4 PROTEIN, TOTAL 6.5 g/dL 6.1-8.1 ALBUMIN 4.2 g/dL 3.6-5.1 GLOBULIN 2.3 g/dL (calc) 1.9-3.7 ALBUMIN/GLOBULIN RATIO 1.8 (calc) 1.0-2.5 BILIRUBIN, TOTAL 0.4 mg/dL 0.2-1.2 ALKALINE PHOSPHATASE 81 U/L 33-130 AST 14 U/L 10-35 ALT 18 U/L 6-29 MAGNESIUM SERUM - 07/04/17 12:52 MAGNESIUM 2.0 mg/dL 1.5-2.5 CBC - 07/04/17 12:52 WHITE BLOOD CELL COUNT 8.3 Thousand/uL 3.8-10.8 RED BLOOD CELL COUNT 4.95 Million/uL 3.80-5.10 HEMOGLOBIN 14.3 g/dL 11.7-15.5 HEMATOCRIT 45.5 % 35.0-45.0 MCV 91.9 fL 80.0-100.0 MCH 28.9 pg 27.0-33.0 MCHC 31.4 g/dL 32.0-36.0 RDW 12.8 % 11.0-15.0 PLATELET COUNT 232 Thousand/uL 140-400 MPV 10.7 fL 7.5-12.5 ABSOLUTE NEUTROPHILS 4557 cells/uL 8295-0629 ABSOLUTE LYMPHOCYTES 3179 cells/uL 850-3900 ABSOLUTE MONOCYTES 506 cells/uL 200-950 ABSOLUTE EOSINOPHILS 42 cells/uL 15-500 ABSOLUTE BASOPHILS 17 cells/uL 0-200 NEUTROPHILS 54.9 % NRG LYMPHOCYTES 38.3 % NRG MONOCYTES 6.1 % NRG EOSINOPHILS 0.5 % NRG BASOPHILS 0.2 % NRG Complete blood count (CBC) with automated white blood cell (WBC) differential - 10/16/17 12:00 Blood leukocytes automated count (number/volume) 6.7 10*3/uL 4.3-11.0 Blood erythrocytes automated count (number/volume) 4.42 10*6/uL 4.35-5.85 Venous blood hemoglobin measurement (mass/volume) 13.2 g/dL 11.5-16.0 Blood hematocrit (volume fraction) 39 % 35-52 Automated erythrocyte mean corpuscular volume 89 [foz_us] 80-99 Automated erythrocyte mean corpuscular hemoglobin (mass per erythrocyte) 30 pg 25-34 Automated erythrocyte mean corpuscular hemoglobin concentration measurement ( mass/volume) 34 g/dL 32-36 Automated erythrocyte distribution width ratio 13.3 % 10.0-14.5 Automated blood platelet count (count/volume) 185 10*3/uL 130-400 Automated blood platelet mean volume measurement 11.6 [foz_us] 7.4-10.4 Automated blood neutrophils/100 leukocytes 50 % 42-75 Automated blood lymphocytes/100 leukocytes 40 % 12-44 Blood monocytes/100 leukocytes 8 % 0-12 Automated blood eosinophils/100 leukocytes 2 % 0-10 Automated blood basophils/100 leukocytes 0 % 0-10 Blood neutrophils automated count (number/volume) 3.3 10*3 1.8-7.8 Blood lymphocytes automated count (number/volume) 2.7 10*3 1.0-4.0 Blood monocytes automated count (number/volume) 0.5 10*3 0.0-1.0 Automated eosinophil count 0.2 10*3/uL 0.0-0.3 Automated blood basophil count (count/volume) 0.0 10*3/uL 0.0-0.1 Whole blood basic metabolic panel - 10/16/17 12:00 Serum or plasma sodium measurement (moles/volume) 141 mmol/L 135-145 Serum or plasma potassium measurement (moles/volume) 3.6 mmol/L 3.6-5.0 Serum or plasma chloride measurement (moles/volume) 110 mmol/L 98-107 Carbon dioxide 23 mmol/L 21-32 Serum or plasma anion gap determination (moles/volume) 8 mmol/L 5-14 Serum or plasma urea nitrogen measurement (mass/volume) 9 mg/dL 7-18 Serum or plasma creatinine measurement (mass/volume) 0.81 mg/dL 0.60-1.30 Serum or plasma urea nitrogen/creatinine mass ratio 11 NRG Serum or plasma creatinine measurement with calculation of estimated glomerular filtration rate > NRG Serum or plasma glucose measurement (mass/volume) 86 mg/dL 70-105 Serum or plasma calcium measurement (mass/volume) 8.5 mg/dL 8.5-10.1 Methicillin resistant Staphylococcus aureus (MRSA) screening culture - 12:00 Methicillin resistant Staphylococcus aureus (MRSA) screening culture NEG NRG Encounters ACCT No. Visit Date/Time Discharge Status Pt. Type Provider Facility Loc./Unit Complaint [id number] 09/14/2014 14:09:00 09/14/2014 23:59:59 CLS Outpatient HASEEB COOK APRN [id number] 08/31/2014 09:48:00 08/31/2014 23:59:59 CLS Outpatient HASEEB COOK APRN [id number] 07/07/2014 12:00:00 07/07/2014 23:59:59 CLS Outpatient CLAUDYL HASEEB QUIGLEY L [id number] 06/08/2014 13:25:00 06/08/2014 23:59:59 CLS Outpatient MADL LOGISTICS SYSTEM ENGINEERHASEEB L [id number] 05/06/2014 13:37:00 05/06/2014 23:59:59 CLS Outpatient JAMESON DO, KIERAN Robb [id number] 05/06/2014 13:37:00 05/06/2014 23:59:59 CLS Outpatient MADL LOGISTICS SYSTEM ENGINEER, HASEEB L [id number] 04/13/2014 13:42:00 04/13/2014 23:59:59 CLS Outpatient MADL LOGISTICS SYSTEM ENGINEER, HASEEB L [id number] 04/13/2014 13:42:00 04/13/2014 23:59:59 CLS Outpatient JAMESON DO, KIERAN Zamudio [id number] 01/14/2014 13:11:00 01/14/2014 23:59:59 CLS Outpatient JAMESON DO, KIERAN K [id number] 12/24/2013 14:01:00 12/24/2013 23:59:59 CLS Outpatient MADL LOGISTICS SYSTEM ENGINEER, HASEEB L [id number] 11/26/2013 14:10:00 11/26/2013 23:59:59 CLS Outpatient MADL LOGISTICS SYSTEM ENGINEER, HASEEB L [id number] 11/10/2013 11:00:00 11/10/2013 23:59:59 CLS Outpatient MADL LOGISTICS SYSTEM ENGINEER, HASEEB L [id number] 10/28/2013 10:54:00 10/28/2013 23:59:59 CLS Outpatient MADL LOGISTICS SYSTEM ENGINEER, HASEEB L [id number] 10/16/2013 12:06:00 10/16/2013 23:59:59 CLS Outpatient JAMESON DO, KIERAN K [id number] 10/09/2013 14:11:00 10/09/2013 23:59:59 CLS Outpatient JAMESON DO, KIERAN K [id number] 09/29/2013 07:49:00 09/29/2013 23:59:59 CLS Outpatient JAMESON DO, KIERAN K [id number] 09/26/2013 08:53:00 09/26/2013 23:59:59 CLS Outpatient JAMESON DO, KIERAN Zamudio [id number] 07/22/2013 10:28:00 07/22/2013 23:59:59 CLS Outpatient WADE CARVER MD [id number] 07/22/2013 10:28:00 07/22/2013 23:59:59 CLS Outpatient WADE CARVER MD [id number] 05/08/2013 14:11:00 05/08/2013 23:59:59 CLS Outpatient AZALEA JACOME MD [id number] 04/29/2013 15:46:00 04/29/2013 23:59:59 CLS Outpatient AZALEA JACOME MD [id number] 04/04/2013 09:23:00 04/04/2013 23:59:59 CLS Outpatient AZALEA JACOME MD [id number] 03/11/2013 16:07:00 03/11/2013 23:59:59 CLS Outpatient WADE CARVER MD [id number] 02/18/2013 15:25:00 02/18/2013 23:59:59 CLS Outpatient WADE CARVER MD [id number] 02/18/2013 15:25:00 02/18/2013 23:59:59 CLS Outpatient WADE CARVER MD [id number] 08/19/2012 14:27:00 08/19/2012 23:59:59 CLS Outpatient JAMESON DOKIERAN [id number] 08/02/2012 13:23:00 08/02/2012 23:59:59 CLS Outpatient JAMESON DOKIERAN [id number] 08/02/2012 13:23:00 08/02/2012 23:59:59 CLS Outpatient [id number] 06/24/2012 14:08:00 06/24/2012 23:59:59 CLS Outpatient JAMESON DOKIERAN [id number] 06/13/2012 13:31:00 06/13/2012 23:59:59 CLS Outpatient JAMESON DOKIERAN [id number] 06/07/2012 14:38:00 06/07/2012 23:59:59 CLS Outpatient JAMESON DOKIERAN [id number] 06/07/2012 14:38:00 06/07/2012 23:59:59 CLS Outpatient [id number] 04/18/2012 09:34:00 04/18/2012 23:59:59 CLS Outpatient JAMESON DOKIERAN [id number] 03/18/2012 11:22:00 03/18/2012 23:59:59 CLS Outpatient JAMESON DOKIERAN [id number] 02/10/2013 14:34:00 Document Registration [id number] 02/07/2013 14:37:00 Document Registration [id number] 12/04/2012 14:55:00 Document Registration [id number] 12/04/2012 14:55:00 Document Registration [id number] 11/29/2012 15:15:00 Document Registration [id number] 11/29/2012 15:15:00 Document Registration [id number] 11/22/2012 14:14:00 Document Registration [id number] 11/18/2012 13:44:00 Document Registration [id number] 11/01/2012 10:06:00 Document Registration [id number] 10/25/2012 11:00:00 Document Registration [id number] 09/25/2012 13:28:00 Document Registration [id number] 02/15/2017 08:06:00 Document Registration [id number] 05/26/2016 08:06:00 Document Registration [id number] 10/16/2017 11:34:00 10/16/2017 12:10:00 DIS Outpatient NATALIE ALVA DO [facility] PREOP STENOSIS [id number] 08/06/2017 11:17:00 08/06/2017 23:59:59 CLS Outpatient NATALIE ALVA DO [facility] RAD LUMBAR FRACTURE [id number] 10/04/2016 11:44:00 10/04/2016 23:59:59 CLS Outpatient THERESA VEGA FACCREID FACP CCDS [facility] RAD I25.10 [id number] 09/13/2016 10:15:00 09/13/2016 23:59:59 CLS Outpatient JANEY DRAPER APRN [facility] RT COUGH,SOB [id number] 01/20/2016 08:20:00 01/20/2016 23:59:59 CLS Outpatient BAIHERMILO HORTON OLERICULTURIST [facility] CARD COPD [id number] 01/19/2016 07:23:00 01/19/2016 23:59:59 CLS Outpatient BAIHERMILO HORTON OLERICULTURIST [facility] CARD CAD [id number] 09/17/2015 10:43:00 09/17/2015 23:59:59 CLS Outpatient MARY CARRENO DO [facility] CARD RT KNEE PAIN [id number] 09/08/2015 11:38:00 09/08/2015 23:59:59 CLS Outpatient HASEEB COOK [facility] RAD BACK PAIN [id number] 07/20/2015 14:45:00 07/20/2015 23:59:59 CLS Preadmit WAI MARY [facility] SDC RIGHT KNEE PAIN [id number] 07/14/2015 11:37:00 07/14/2015 23:59:59 CLS Outpatient WAI MARY VACA [facility] PREOP RIGHT KNEE PAIN [id number] 06/11/2015 10:51:00 06/11/2015 23:59:59 CLS Outpatient WAI DO, MARY Cortez [facility] RAD UNILATERAL OA RT KNEE , GRADE 3 OA [id number] 04/14/2015 14:35:00 04/14/2015 23:59:59 CLS Outpatient JANEY DRAPER APRN [facility] RAD COPD,COUGH,ASTHMA [id number] 10/09/2014 06:46:00 10/09/2014 07:40:00 DIS Outpatient JASON LAKHANI MD [facility] CARD LUMBAR SPONDYLOSIS [id number] 10/02/2014 07:33:00 10/02/2014 08:58:00 DIS Outpatient JASON LAKHANI MD [facility] CARD LUMBAR SPONDYLOSIS [id number] 09/07/2014 14:47:00 09/07/2014 17:02:00 DIS Outpatient JASON LAKHANI MD [facility] CARD DEGENERATIVE DISC DISEASE LUMBAR [id number] 07/07/2014 09:55:00 07/07/2014 23:59:59 CLS Outpatient BÁRBARA HERNÁNDEZ DO [facility] RAD COPD,ASTHMA, TOBACCO USER [id number] 04/09/2014 12:35:00 06/05/2014 10:59:00 DIS Outpatient ROSALIO LUCAS APRN [facility] REHAB LATERAL PATELLAR TILT; PF SYNDROME [id number] 05/26/2014 10:01:00 05/26/2014 23:59:59 CLS Outpatient MADL, HASEEB L OLERICULTURIST [facility] RAD CHRONIC LOW BACK PAIN [id number] 04/16/2014 08:25:00 04/16/2014 23:59:59 CLS Outpatient MARY CARRENO DO [facility] RAD RT KNEE DJD [id number] 02/17/2014 08:37:00 02/17/2014 17:00:00 DIS Outpatient THERESA VEGA FACC, REID MURPHY CCDS [facility] CATH ANGINA,SOB, CAD [id number] 11/05/2013 07:31:00 11/05/2013 12:20:00 DIS Outpatient RIGOBERTO HUBBARD MD [facility] SDC SCREENING [id number] 10/29/2013 07:39:00 10/29/2013 23:59:59 CLS Outpatient RIGOBERTO HUBBARD MD [facility] PREOP SCREENING [id number] 10/28/2013 08:49:00 10/28/2013 23:59:59 CLS Outpatient BARBARA OSBORN APRN [facility] RAD SCREENING [id number] 04/24/2013 10:00:00 07/14/2013 00:01:00 DIS Outpatient BÁRBARA HERNÁNDEZ DO [facility] PULM COPD,SNORING, OBESITY [id number] 04/07/2013 08:33:00 06/12/2013 00:01:00 DIS Outpatient WADE CARVER MD [facility] CARD DIZZINESS,SYNCOPE [id number] 04/25/2013 21:54:00 04/26/2013 06:10:00 DIS Outpatient BÁRBARA HERNÁNDEZ DO [facility] SLEEP NOCTURIA,SNORING [id number] 04/16/2013 10:49:00 04/16/2013 23:59:59 CLS Outpatient BÁRBARA HERNÁNDEZ DO [facility] RT COPD,SNORING,OBESITY [id number] 02/24/2013 08:56:00 02/24/2013 12:45:00 DIS Outpatient BREEZY PAREKH MD [facility] SDC PEPTIC ULCERS [id number] 02/20/2013 09:31:00 02/20/2013 23:59:59 CLS Outpatient WADE CARVER MD [facility] RAD INTRACTABLE HEADACHES ,MEMORY PROBLEMS [id number] 02/20/2013 09:26:00 02/20/2013 23:59:59 CLS Outpatient KATI HERMILOHER Burt SHAH [facility] RAD CHEST PAIN,DYSPNEA [id number] 02/19/2013 08:44:00 02/19/2013 23:59:59 CLS Outpatient BREEZY PAREKH MD [facility] PREOP PEPTIC ULCERS [id number] 01/31/2013 08:45:00 02/06/2013 14:31:00 DIS Outpatient WADE CARVER MD [facility] REHAB LOW BACK PAIN, UNSTEADY GAIT, NECK PAIN [id number] 01/14/2013 07:02:00 01/14/2013 23:59:59 CLS Outpatient THERESA VEGA FACC, REID MURPHY CCDS [facility] LAB LEG SWELLING, [id number] 12/30/2012 14:37:00 12/30/2012 23:59:59 CLS Outpatient [id number] 11/15/2012 06:25:00 11/15/2012 09:54:00 DIS Emergency BRADLY VEGA, AGNES Zamudio [facility] ER VOMITING,NAUSEA,FEVER [id number] 11/01/2012 08:49:00 11/01/2012 23:59:59 CLS Outpatient NAA VEGA, AZALEA Cortez [facility] RAD DIFFICULTY SWALLOWING SOLIDS AND LIQUIDS [id number] 10/20/2012 13:53:00 10/20/2012 23:59:59 CLS Outpatient [id number] 10/22/2017 07:30:00 PEN Preadmit NATALIE ALVA DO [facility] STENOSIS [id number] 08/06/2014 16:31:00 Document Registration [id number] 07/07/2014 09:56:00 Document Registration [id number] 07/15/2013 15:00:00 Document Registration [id number] 06/13/2013 10:00:00 Document Registration [id number] 08/15/2012 14:43:00 Document Registration [id number] 07/19/2012 08:30:00 Document Registration [id number] 07/10/2012 11:38:00 Document Registration [id number] 07/03/2012 08:05:00 Document Registration [id number] 02/08/2012 09:36:00 Document Registration [id number] 01/31/2012 08:38:00 Document Registration [id number] 09/04/2011 10:22:00 Document Registration [id number] 08/10/2011 09:59:00 Document Registration [id number] 06/08/2011 19:47:00 Document Registration [id number] 04/04/2011 10:08:00 Document Registration [id number] 03/10/2011 12:07:00 Document Registration [id number] 02/25/2011 23:54:00 Document Registration [id number] 06/20/2010 06:03:00 Document Registration [id number] 06/14/2010 10:19:00 Document Registration [id number] 04/01/2010 11:40:00 Document Registration [id number] 03/09/2010 10:06:00 Document Registration [id number] 01/27/2010 15:53:00 Document Registration [id number] 12/09/2009 14:00:00 Document Registration [id number] 11/11/2009 08:07:00 Document Registration [id number] 10/26/2009 14:05:00 Document Registration [id number] 10/12/2009 18:35:00 Document Registration [id number] 10/11/2009 14:14:00 Document Registration [id number] 10/08/2009 12:17:00 Document Registration [id number] 10/18/2016 08:48:00 Document Registration [id number] 10/10/2014 03:32:13 ACT Document Registration [id number] 08/30/2017 09:00:00 08/30/2017 23:59:59 CLS Outpatient MADL LOGISTICS SYSTEM ENGINEER, HASEEB L [facility] [id number] 07/04/2017 12:00:00 Document Registration [id number] 02/14/2017 13:20:00 Document Registration [id number] 02/04/2016 07:06:00 Document Registration
[2017-10-22 19:45] VITALS: BP 100/53
[2017-10-22] MEDS ORDERED: LATANOPROST 0.005% (XALATAN) OPHTH SOLN 2.5 ML OU SCH (21:00)
[2017-10-22] MEDS ORDERED: SENNOSIDES 8.6 MG (SENOKOT) TAB PO SCH (21:00)
[2017-10-22] MEDS ORDERED: MONTELUKAST 10 MG (SINGULAIR) TAB PO SCH (21:00)
[2017-10-22] MEDS ORDERED: TOPIRAMATE 200 MG PO SCH (21:00)
[2017-10-22] MEDS ORDERED: DOCUSATE SODIUM 100 MG (COLACE) CAP PO SCH (21:00)
[2017-10-23] VITALS: BP 100/55
[2017-10-23] MEDS: ceFAZolin INJECTION 1,000 MG in NS (IVPB) 50 ML IV SCH ×2 (02:21→08:11)
[2017-10-23 04:14] VITALS: BP 129/60
[2017-10-23 04:48] LABS: HEMOGLOBIN 13.7 G/DL (11.5-16.0); MEAN PLATELET VOLUME 11.1 FL (7.4-10.4); RED BLOOD COUNT 4.58 10^6/uL (4.35-5.85); RED CELL DISTRIBUTION WIDTH 13.5 % (10.0-14.5); WHITE BLOOD COUNT 12.9 10^3/uL (4.3-11.0)
[2017-10-23 05:06] LABS: ALANINE AMINOTRANSFERASE 156 U/L (0-55); ALBUMIN 3.8 GM/DL (3.2-4.5); ALKALINE PHOSPHATASE 100 U/L (40-136); BILIRUBIN,TOTAL 0.3 MG/DL (0.1-1.0); BUN/CREATININE RATIO 10; CALCIUM 8.7 MG/DL (8.5-10.1); CARBON DIOXIDE 20 MMOL/L (21-32); CHLORIDE 113 MMOL/L (98-107); GFR ESTIMATED > 60; GLUCOSE 91 MG/DL (70-105); POTASSIUM 3.6 MMOL/L (3.6-5.0); SODIUM 144 MMOL/L (135-145)
[2017-10-23] MEDS ORDERED: OXYC-471 PO (06:13)
--- NOTE | 2017-10-23 06:16 | Discharge Inst-Simple/Standard ---
Discharge Inst-Standard Discharge Medications New, Converted or Re-Newed RX: RX on Chart Patient Instructions/Follow Up Plan of Care/Instructions/FU: follow up in clinic in 2 weeks [phone] dont bend lift twist push or pull keep incision covered and dry Activity as Tolerated: No Discharge Diet: No Restrictions Return to The Hospital For: fever chills shortness of breath chest pain neurologic changes LIZETH DALY October 23, 2017 6:16 am
[2017-10-23] MEDS ORDERED: MULTIVIT W/MINERALS TAB (THERAGRAN M) PO SCH (07:00)
[2017-10-23 08:00] VITALS: BP 114/57
[2017-10-23] MEDS: HYDROcodone/APAP 5 MG/325 MG (LORTAB) TAB PO PRN ×2 (08:00→08:13)
[2017-10-23] MEDS: PREGABALIN 100 MG (LYRICA) CAPSULE PO SCH (08:13)
--- NOTE | 2017-10-23 08:57 | Discharge Summary ---
Diagnosis/Chief Complaint Date of Admission 10/22/2017 Date of Discharge 10/23/2017 Admission Diagnosis Admission Diagnosis lumbar stenosis with neurogenic claudication Discharge Diagnosis same Reason Hospital Visit L3-4 laminectomy Discharge Summary Hospital Course Hospital Course Mrs Wise is a 57 y/o female we have followed for the c/c of back and Le pain worse with activity, consistent with neurogenic claudication. She failed to improve with conservative treatment. She was admitted for laminectomy. She tolerated the procedure well and on POD #1 her vss and pain was controlled. She was dismissed home. Labs Laboratory Tests 10/23/17 04:00: White Blood Count 12.9H, Mean Platelet Volume 11.1H, Chloride Level 113H, Carbon Dioxide Level 20L, Aspartate Amino Transf (AST/SGOT) 111H, Alanine Aminotransferase (ALT/SGPT) 156H, Total Protein 6.0L Procedures None. Discharge Physical Examination Allergies: Coded Allergies: No Known Drug Allergies (Unverified , 10/12/09) Vitals & I&Os Vital Signs Date Time Temp Pulse Resp B/P (MAP) Pulse Ox O2 Delivery O2 Flow Rate FiO2 10/23/17 08:00 97.5 77 20 114/57 (76) 98 Room Air 10/23/17 04:14 3.00 General Appearance: Alert, Oriented X3, No Acute Distress Respiratory: Normal Air Movement Cardiovascular: Regular Rate Abdominal: Normal Bowel Sounds Neuro: Normal Gait, Normal Speech Discharge Home Medications Reviewed and agree with Discharge Medication list on patient's Discharge Instruction sheet Instructions to Patient/Family Please see electronic discharge instructions given to patient. Clinical Quality Measures DVT/VTE Risk/Contraindication: Risk Factor Score Per Nursin RFS Level Per Nursing on Admit: 4+=Very High LIZETH DALY October 23, 2017 08:57
[2017-10-23] MEDS ORDERED: NICOTINE PATCH REMOVAL TP SCH (08:59)
[2017-10-23] MEDS ORDERED: FUROSEMIDE 20 MG (LASIX) TAB PO SCH (09:00)
[2017-10-23] MEDS ORDERED: ESCITALOPRAM 20 MG (LEXAPRO) TABLET NON-FORMULARY PO SCH (09:00)
[2017-10-23] MEDS ORDERED: ATORVASTATIN 20 MG (LIPITOR) TABLET PO SCH (09:00)
[2017-10-23] MEDS ORDERED: UMECLIDINIUM BROMIDE (INCRUSE ELLIPTA) 7'S IH SCH (09:00)
[2017-10-23] MEDS ORDERED: FLUTICASONE PROPIONATE NSEACH SCH (09:00)
[2017-10-23] MEDS ORDERED: ESOMEPRAZOLE 40 MG PO SCH (09:00)
[2017-10-23] MEDS ORDERED: KCL 10 MEQ TAB (MICRO K) PO SCH (09:00)
[2017-10-23] MEDS ORDERED: buPROPion SR 100 MG (WELLBUTRIN SR) TAB PO SCH (09:00)
[2017-10-23] MEDS ORDERED: FLUTICASONE NASAL SPRAY (FLONASE) 16 GM BTL NS SCH (09:00)
[2017-10-23] MEDS ORDERED: ISOSORBIDE MONONITRATE 30 MG (IMDUR) TAB PO SCH (09:00)
--- NOTE | 2017-10-23 10:38 | Physical Therapy Evaluation ---
PT Evaluation-General Medical Diagnosis Admission Date Medical Diagnosis: L3-4 laminectomy Onset Date: October 22, 2017 Therapy Diagnosis Therapy Diagnosis: impaired mobility, strength, endurance Height/Weight Height (Feet): 5 Height (Inches): 5.00 Weight (Pounds): 155 Weight (Ounces): 0.0 Precautions Precautions/Isolations: Fall Prevention, Standard Precautions, Pressure Ulcer Weight Bear Status Right Lower Extremity: Right Full Weight Bearing Left Lower Extremity: Left Full Weight Bearing Referral Physician: Taras Tobias Reason for Referral: Evaluation/Treatment Medical History Pertinent Medical History: GERD Additional Medical History right knee scope Current History lumbar stenosis with neurogenic claudication Social History Home: Single Level Current Living Status: Alone Entry Into Home: Level Entry Prior/Core FIM Prior Level of Function Functional [place] Measure 0=Not Assessed/NA 4=Minimal Assistance 1=Total Assistance 5=Supervision or Setup 2=Maximal Assistance 6=Modified [place] 3=Moderate Assistance 7=Complete [place] Bed Mobility: 6 Transfers (B,C,W/C) (FIM): 6 Gait: 6 Patient states she was using a single point cane and rolling walker before the surgery. PT Evaluation-Current Subjective Patient coming from bathroom pre tx, agrees to PT, has 9/10 pain in her low back. Patient has a back brace but it is too small to fit. Patient ambulates back to her recliner without back brace using a single point cane. Pt/Family Goals to be independent at home Objective Patient Orientation: Person, Place, Situation ROM/Strength ROM Lower Extremities WNL Strength Lower Extremities 4+/5 gross bilateral lower extremities Sensory Vision: Wears Glasses Hearing: Functional Sensation Right Lower Extremit: Intact Sensation Left Lower Extremity: Intact Transfers Functional [place] Measure 0=Not Assessed/NA 4=Minimal Assistance 1=Total Assistance 5=Supervision or Setup 2=Maximal Assistance 6=Modified [place] 3=Moderate Assistance 7=Complete [place] Transfers (B, C, W/C) (FIM): 5 Sit to/from Stand: 5 Gait Mode of Locomotion: Walk Anticipated Mode of Locomotion: Walk Gait (FIM): 1 Distance: 10' Gait Level of Assist: 5 Gait Persons Needed: 1 Gait Assistive Device: Cane Single Point Comments/Gait Description Patient ambulated from the bathroom to her recliner about 10' using a single point cane with SBA. Patient has a back brace but it is too small, nurse aide had taken her to the bathroom. Balance Sitting Static: Normal Sitting Dynamic: Normal Standing Static: Good Standing Dynamic: Good Assessment/Needs Patient has impaired mobility, strength, endurance post lumbar surgery. Rehab Potential: Fair PT Short Term Goals Short Term Goals Time Frame: October 30, 2017 Transfers (B,C,W/C) (FIM): 6 Gait (FIM): 2 Gait Distance Comment: 50' Gait Level of Assist: 5 Gait Assistive Device: Cane Single Point PT Plan Problem List Problem List: Activity Tolerance, Functional Strength, Safety, Balance, Gait, Transfer, Bed Mobility, ROM Treatment/Plan Treatment Plan: Continue Plan of Care Treatment Plan: Bed Mobility, Education, Functional Activity Thad, Functional Strength, Gait, Safety, Therapeutic Exercise, Transfers Treatment Duration: October 30, 2017 Frequency: 6 times per week Estimated Hrs Per Day: .25 hour per day Patient and/or Family Agrees t: Yes Safety Risks/Education Patient Education: Gait Training, Transfer Techniques, Reviewed Precautions, Correct Positioning, Reviewed Don/Doff Brace, Disease Process, Safety Issues Teaching Recipient: Patient, Family Teaching Methods: Demonstration, Discussion Response to Teaching: Reinforcement Needed Discharge Recommendations Plan Patient will perform bed mobility and transfer training, balance and endurance training, functional strengthening, stair training, gait training, and education , to improve functional mobility and independence at home. Therapy D/C Recommendations: Home w/ Family Support Time/GCodes Time In: 1005 Time Out: 1020 Total Billed Treatment Time: 15 Total Billed Treatment 1 visit JEFRY 15' WILMAR WHITE PT October 23, 2017 10:38
[2017-10-23 12:25] VITALS: BP 114/57
--- NOTE | 2017-10-23 13:11 | Anesthesia-General Post-Op ---
General Patient Condition Mental Status/LOC: Same as Preop Cardiovascular: Satisfactory Nausea/Vomiting: Absent Respiratory: Satisfactory Pain: Controlled Complications: Absent Post Op Complications Complications None Follow Up Care/Instructions Patient Instructions None needed. Anesthesia/Patient Condition Patient Condition Patient is doing well, no complaints, stable vital signs, no apparent adverse anesthesia problems. No complications reported per nursing. D/C home per [facility] Criteria: Yes CHENTE JANSEN CRNA October 23, 2017 13:11
--- NOTE | 2017-10-23 13:20 | Occupational Therapy Eval ---
OT Evaluation-General/PLF Medical Diagnosis Admission Date 10-22-17 Medical Diagnosis: L3-4 laminectomy Onset Date: October 22, 2017 Therapy Diagnosis Therapy Diagnosis: Weakness Height/Weight Height (Feet): 5 Height (Inches): 5.00 Weight (Pounds): 155 Weight (Ounces): 0.0 Precautions Precautions/Isolations: Fall Prevention, Standard Precautions, Pressure Ulcer Safety Interventions: Bed Exit Alarm Weight Bear Status Weight Bearing Restriction: Weight Bearing/Tolerated Back/spinal precautions. Referral Physician: Taras Tobias Referral Reason: Activity Tolerance, Self Care, Evaluation/Treatment, Strengthening/ROM Medical History Pertinent Medical History: GERD Current History Pt. had back brace in room that nursing states that physician wanted her to have. However, brace too small, so measures taken and large brace delivered to room. Reviewed History: Yes Social History Home: Apartment Current Living Status: Alone Entry Into Home: Level Entry ADL-Prior Level of Function ADL PLOF Comments Pt. states that she was independent with all daily skills. DME/Equipment: Tub/Shower DME/Equipment Comments Pt. states that she has a walker, recliner, and hospital bed. OT Current Status Subjective Pt. does not report a pain level, but states that she has "always had pain." Pt. is getting ready to discharge home. Appearance Pt. is sitting up in chair. Pt. is fully dressed. Agrees to work with OT. Mental Status/Objective Patient Orientation: Person, Place Current Glasses/Contacts: Yes Hand Dominance: Right Upper Extremity ROM WFL ADL-Treatment Functional [place] Measure 0=Not Assessed/NA 4=Minimal Assistance 1=Total Assistance 5=Supervision or Setup 2=Maximal Assistance 6=Modified [place] 3=Moderate Assistance 7=Complete IndependenceIRFPAI Quality Coding Scale 6 Independent with activity with or without an assistive device 5 Patient requires set up or clean up by helper. Patient completes activity by themselves 4 Supervision or touching assist (CGA). [place] provide cues , steadying assist 3 The helper provides less than half the effort to complete the activity 2 The helper provides more than half the effort to complete the activity 1 Dependent. The helper does all the effort to complete an activity 7 Patient refused to complete or attempt activity 9 The patient did not perform the activity before the current illness or injury 88 Not attempted due to Medical conditions or safety concerns Transfers (B, C, W/C) (FIM): 5 (SBA to stand out of chair.) Pt. is already dressed and sitting up in chair. Pt. states that nursing assisted her this morning, but declines practicing clothing at this time. OT does fit her new brace to her, and educates her on donning this herself. Pt. practices with assist. Once brace is on, pt. agrees to ambulate with OT down conner. Ambulated approximately 200 feet with walker with SBA. No LOB noted. Pt. states that her ride will be here within 45 minutes. Pt. has no further questions for OT at this time. All needs met in room. Education OT Patient Education: Correct positioning, Modified ADL techniques, Progress toward Goal/Update tx plan, Purpose of tx/functional activities, Reviewed precautions, Rehab process, Transfer techniques Teaching Recipient: Patient Teaching Methods: Demonstration, Discussion Response to Teaching: Verbalize Understanding, Return Demonstration OT Short Term Goals Short Term Goals Transfers (B,C,W/C) (FIM): 6 1=Demonstrate adherence to instructed precautions during ADL tasks. 2=Patient will verbalize/demonstrate understanding of assistive devices/ modifications for ADL. 3=Patient will improve strength/tolerance for activity to enable patient to perform ADL's. OT Edge Burnisher Goals Edge Burnisher Goals Time Frame: October 23, 2017 Additional Goals: 2-Verbalize Understanding 1=Demonstrate adherence to instructed precautions during ADL tasks. 2=Patient will verbalize/demonstrate understanding of assistive devices/ modifications for ADL. 3=Patient will improve strength/tolerance for activity to enable patient to perform ADL's. Pt. has been educated on donning brace and importance of walking. Pt. states that she is going to see about getting some assist at home. OT Education/Plan Problem List/Assessment Assessment: Decreased Activ Tolerance, Impaired I ADL's, Impaired Self-Care Skills Discharge Recommendations Plan/Recommendations: Discontinue OT Therapy D/C Recommendations: Home w/ Family Support, Occupational Therapy Home Care, Scheduled Assistance Comment Pt. getting ready to discharge. Would benefit from home health and hip kit. Treatment Plan/Plan of Care Treatment,Training & Education: Yes Patient would benefit from OT for education, treatment and training to promote independence in ADL's, mobility, safety and/or upper extremity function for ADL' s. Plan of Care: ADL Retraining, Functional Mobility Treatment Duration: October 23, 2017 Frequency: 1 time per week Estimated Hrs Per Day: .25 hour per day Agreement: Yes Rehab Potential: Good Time/GCodes Start Time: 10:50 Stop Time: 11:05 Total Time Billed (hr/min): 15 Billed Treatment Time 1, WATLER SHELDON OT October 23, 2017 13:20
== END 2017-10-23 12:20 | disposition home or self-care (01) ==
LOC: SDC 08:45 → 4TH 13:10 → SDC 10-23 12:20
PROVIDERS: ATTEND Orthopaedic Surgery
DX: M48.062 Spinal stenosis, lumbar region with neurogenic claudication (principal); M54.16 Radiculopathy, lumbar region; I25.10 Atherosclerotic heart disease of native coronary artery without angina pectoris; I10 Essential (primary) hypertension; E78.5 Hyperlipidemia, unspecified; F17.210 Nicotine dependence, cigarettes, uncomplicated; J43.9 Emphysema, unspecified; G43.909 Migraine, unspecified, not intractable, without status migrainosus; F32.9 Major depressive disorder, single episode, unspecified; F41.9 Anxiety disorder, unspecified; M79.7 Fibromyalgia; K21.9 Gastro-esophageal reflux disease without esophagitis; Z79.82 Long term (current) use of aspirin; Z79.899 Other long term (current) drug therapy
CPT/HCPCS: 36415; 80053; 85027; 94640; 94664

== ENCOUNTER → 2018-10-16 | Outpatient (CLI) | payer MEDICARE, MEDICAID ==
[~2018-10-16] MED LIST changes: +OXYC-471 PO
--- NOTE | 2018-10-16 12:13 | Diagnostic Imaging Report ---
PROCEDURE: MRI right joint lower extremity without contrast. TECHNIQUE: Multiplanar, multisequence non contrast-enhanced MRI of the right lower extremity was accomplished. INDICATION: Knee pain. COMPARISON: The study is less than optimal due to motion artifact. 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 This finding was felt to be most likely related to an enchondroma and appeared stable when compared to the previous MRI right knee exam of 04/16/2014. On this study that finding is again visualized and now measures 2.6 x 2.7 x 2.9 cm. The stability of this finding over a roughly 5 year period would indicate that it is not related to an aggressive neoplastic process. As noted on the prior exam, there is a band of altered signal extending to the posterior horn of the medial meniscus. The signal abnormality does not communicate with the articular surface and consequently is not felt to represent a tear. The lateral meniscus is intact. The anterior and posterior cruciate ligaments, the quadriceps and infrapatellar tendons and the collateral ligaments, the biceps femoris tendon and the iliotibial band are intact. There is no sign of an injury to either the medial or lateral retinaculum. There is no abnormal signal arising from the osseous structures to suggest bone edema or a fracture. The knee joint is fairly well-maintained. There is no significant joint effusion present. There is no evidence for a Tyler's cyst. IMPRESSION: 1. The suspected chondroid lesion in the distal femur seen previously is again evident and appears stable. There is no acute bony abnormality appreciated. 2. There is degenerative disease of the posterior horn of the medial meniscus but there is no evidence for a tear of either meniscus. 3. The major ligaments and tendons are intact. Dictated by: Dictated on workstation # [id number]
== END ==
LOC: RAD 09:20
PROVIDERS: ATTEND Nurse Practitioner Primary Care
DX: M23.321 Other meniscus derangements, posterior horn of medial meniscus, right knee (principal); M17.11 Unilateral primary osteoarthritis, right knee
CPT/HCPCS: 73721

== ENCOUNTER → 2019-02-27 | Outpatient (CLI) | payer MEDICARE, MEDICAID ==
--- NOTE | 2019-02-27 11:30 | Diagnostic Imaging Report ---
Exam: MRI of the lumbar spine performed without IV contrast. Sagittal T2, sagittal T1, sagittal stir, axial T1, and axial T2. Comparison: MRI of the lumbar spine without contrast dated 08/06/2017. Findings: There are interval postop changes with interval development of L3 laminectomies with decompression of the central canal at this level. There is levoscoliosis of the lumbar spine which has progressed. There is no acute lumbar spine fracture. The visualized portions of the distal thoracic spinal cord, conus medullaris, and cauda equina nerve roots are unremarkable. The conus medullaris tip is seen at the L1-L2 intervertebral level. There are hypertrophic spurs seen throughout the lumbar spine and facet arthropathy. There is no significant paraspinal soft tissue abnormality. T11-T12: There is bilateral facet arthropathy with the left side more than the right. There is no significant central spinal canal or neural foramen narrowing. T12-L1: There is no significant central spinal canal or neural foramen narrowing. L1-L2: There is mild bilateral facet arthropathy. There is no significant central spinal canal or neural foramen narrowing. L2-L3: There is mild bilateral facet arthropathy. There is no significant central spinal canal or neural foramen narrowing.. L3-L4: There is progression of the diffuse disc bulge with increased size of the posterior disc herniation and components extending into the foraminal regions. There is severe right neural foramen narrowing and mild to moderate left neural foramen narrowing which has progressed. The previously seen central canal stenosis has resolved. L4-L5: There is a stable diffuse disc bulge and severe bilateral facet arthropathy. There is progression of ligamentum flavum buckling. There is mild to moderate central canal narrowing which has progressed. There is mild bilateral neural foramen narrowing which has slightly progressed. L5-S1: There is moderate left facet arthropathy and mild right facet arthropathy. There is no significant central spinal canal or neural foramen narrowing. Impression: 1: There is progression of levoscoliosis of lumbar spine and multilevel degenerative disc disease. 2: There is progression of diffuse disc bulge and herniations at the L3-L4 level with progression of bilateral neural foramen narrowing. 3: There is interval laminectomy at the L3 level with resolution of previously seen severe stenosis at the L3-L4 level. 4: The remainder of the lumbar spine degenerative changes are described above. Dictated by: Dictated on workstation # [id number]
== END ==
LOC: RAD 09:54
PROVIDERS: ATTEND Orthopaedic Surgery
DX: M41.26 Other idiopathic scoliosis, lumbar region (principal); M51.36 Other intervertebral disc degeneration, lumbar region; M51.26 Other intervertebral disc displacement, lumbar region; M46.97 Unspecified inflammatory spondylopathy, lumbosacral region
CPT/HCPCS: 72148

== ENCOUNTER → 2019-03-11 | Outpatient (CLI) | payer MEDICARE, MEDICAID ==
--- NOTE | 2019-03-11 15:04 | Diagnostic Imaging Report ---
INDICATION: Screening for osteoporosis. COMPARISON: None. The bone mineral density of the hips and spine was measured. COMPARISON: There are no prior studies available for comparison. FINDINGS: The T score for the spine is -3.7. This does indicate osteoporosis. The total T score for the left hip is -2.9 and the T score for the left femoral neck is -2.5. These values also indicate osteoporosis. The total T score for the right hip is -2.4 and for the right femoral neck -2.3. These values fall in the range of severe osteopenia. AP Spine L1-L4: [BMD (g/cm2): 0.753] [T-Score: -3.7] [Z-Score: -2.3] [BMD Previous: N/A] [BMD % Change: N/A] LT Hip Neck: [BMD (g/cm2): 0.691] [T-Score: -2.5] [Z-Score: -1.1] LT Hip Total: [BMD (g/cm2):0.648] [T-Score:-2.9] [Z-Score: -1.7] [BMD Previous: N/A] [BMD % Change: N/A] RT Hip Neck: [BMD (g/cm2):0.713] [T-Score:-2.3] [Z-Score:-0.9] RT Hip Total: [BMD (g/cm2):0.711] [T-score:-2.4] [Z-Score:-1.2] [BMD Previous:N/A] [BMD % Change:N/A] *Indicates significant change from prior examination based on 95% confidence level. World Health Organization criteria for BMD interpretation classify patients as Normal (T-score at or above -1.0), Osteopenic (T-score between -1.0 and -2.5) or Osteoporotic (T-score at or below -2.5). LIMITATIONS AND MODIFICATION: None. FRACTURE RISK (FRAX SCORE): The ten year probability of (%): Major Osteoporotic Fracture: [N/A] Hip Fracture: [N/A] IMPRESSION: 1. There is osteoporosis of the spine and left hip and left femoral neck. 2. The T score values for the right hip and right femoral neck indicate severe osteopenia. 3. See below National Osteoporosis Foundation guidelines on when to potentially initiate pharmacologic therapy. Based on the National Osteoporosis Foundation Guidelines, pharmacologic treatment should be initiated in any of the following, unless clinical conditions suggest otherwise: * Any patient with prior fragility fracture of the hip or vertebrae. A spine fracture indicates 5X risk for subsequent spine fracture and 2X risk for subsequent hip fracture. * Osteoporosis (T-score <-2.5). * Postmenopausal women and men age 50 and older with low bone mass/osteopenia (T-score between -1.0 and -2.5) by DXA and 10-year major osteoporotic fracture greater than 20% or a 10-year probability of hip fracture greater than 3%. These fracture risks are supplied above in the FRAX score, if applicable. * Clinician judgement and/or patient preferences may indicate treatment for people with 10-year fracture probabilities above or below these levels. Dictated by: Dictated on workstation # [id number]
== END ==
LOC: RAD 13:17
PROVIDERS: ATTEND Nurse Practitioner Primary Care
DX: Z13.820 Encounter for screening for osteoporosis (principal); M81.0 Age-related osteoporosis without current pathological fracture; N95.9 Unspecified menopausal and perimenopausal disorder
CPT/HCPCS: 77080

== ENCOUNTER 2019-03-20 19:12 | Emergency (ER) | payer MEDICARE, MEDICAID ==
[~2019-03-20] VITALS: Ht 160 cm; Wt 61.8 kg
[2019-03-20] MEDS ORDERED: KETOROLAC 30 MG/ML VIAL IVP STA (19:28)
[2019-03-20] MEDS ORDERED: fentaNYL INJECTION 100 MCG/2 ML AMP IVP STA (19:28)
--- NOTE | 2019-03-20 19:35 | ED Fall/Injury ---
General Chief Complaint: Lower Extremity Stated Complaint: KNEE PAIN Nursing Triage Note: PT. FELL WHILE DOING LAUNDRY. SHE FELL ON LIQUID SOAP, NO LOC. PT. DOES C/O RIGHT KNEE PAIN. SHE REPORTED SHE HIT HER LUMBAR AND HEAD. THE KNEE IS SLIGHTLY SWOLLEN. PT. WAS BROUGHT IN TO ER 3 BY EMS. PT. HAS A SALINE LOCK IN THE RIGHT AC. PT. WAS GIVEN FENTANYL BY EMS. Source: patient, EMS History of Present Illness Date Seen by Provider: Mar 20, 2019 Time Seen by Provider: 19:13 Initial Comments 59-year-old female presenting with complaints of right knee pain and low back pain since having a fall at her apartment complex. She was working on laundry and slipped on some liquid soap on the floor. She isn't sure exactly how she fell but knows that she hurt her right knee, low back, and hit her head. She denies having any loss of consciousness. She was unable to get back up off of the concrete after the fall due to the pain in her right knee. She also is having increased pain in her lumbar spine compared to normal. She denies any nausea or vomiting. She has no change in her vision. She has had improvement in her pain since getting fentanyl by EMS. She feels she can't straighten out her right leg due to the pain. Allergies and Home Medications Allergies Coded Allergies: No Known Drug Allergies (Unverified , 10/12/09) Home Medications Albuterol Sulfate 1 Puff Puff, 2 PUFF IH Q4H PRN for WHEEZING, (Reported) 1 PUFF = 90 MCG Albuterol Sulfate 0.63 Mg/3 Ml Vial.neb, 0.63 MG IH QID PRN for SHORTNESS OF BREATH, (Reported) Atorvastatin Calcium 20 Mg Tablet, 20 MG PO DAILY, (Reported) Baclofen 10 Mg Tablet, 10 MG PO BID PRN for MUSCLE SPASMS, (Reported) Bupropion HCl 100 Mg Tablet.er, 100 MG PO DAILY, (Reported) Escitalopram Oxalate 20 Mg Tablet, 30 MG PO DAILY, (Reported) take 1 1/2 of 20mg tab for 30mg total Esomeprazole Magnesium 40 Mg Capsule.dr, 40 MG PO DAILY, (Reported) Fluticasone Propionate 15.8 Ml [place].susp, 1 SPRAYS NSEACH DAILY, (Reported) Fluticasone/Vilanterol 1 Each Blst.w.dev, 1 EACH IH BID, (Reported) Furosemide 20 Mg Tablet, 20 MG PO DAILY, (Reported) Hydrocodone Bit/Acetaminophen 1 Tab Tab, 1 EACH PO Q6H PRN for PAIN-SEVERE Prescribed by: ARASH QUEEN on 03/20/192138 Isosorbide Mononitrate 30 Mg Tab.er.24h, 30 MG PO DAILY, (Reported) Latanoprost 2.5 Ml Drops, 1 DROP OU HS, (Reported) Montelukast Sodium 10 Mg Tablet, 10 MG PO HS, (Reported) Lorraine-3 Acid Ethyl Esters 1 Gm Capsule, 1 GM PO BID, (Reported) Oxycodone HCl/Acetaminophen 1 Each Tablet, 1-2 TAB PO Q4H PRN for PAIN-MODERATE TO SEVERE Prescribed by: LIZETH DALY on 10/23/17 0613 Potassium Chloride 10 Meq Tablet.er, 10 MEQ PO DAILY, (Reported) Pregabalin 100 Mg Capsule, 100 MG PO TID, (Reported) Sucralfate 1 Gm Tablet, 1 GM PO TID, (Reported) Sumatriptan Succinate 50 Mg Tablet, 100 MG PO BID PRN for MIGRAINE, (Reported) take 2 (50mg) tabs Topiramate 200 Mg Tablet, 200 MG PO BID, (Reported) Umeclidinium Holstein 62.5 Mcg Blst.w.dev, 62.5 MCG IH DAILY, (Reported) Patient Home Medication List Home Medication List Reviewed: Yes Review of Systems Review of Systems Constitutional: no symptoms reported Eyes: No Symptoms Reported Ears, Nose, Mouth, Throat: no symptoms reported Respiratory: no symptoms reported Cardiovascular: no symptoms reported Gastrointestinal: no symptoms reported Genitourinary: no symptoms reported Musculoskeletal: see HPI, back pain (acute on chronic), joint pain (right knee pain and swelling), joint swelling (right knee) Skin: no symptoms reported Psychiatric/Neurological: Anxiety Past Tcvyjcc-Yiebdx-Pubwqk Hx Past Med/Social Hx: Reviewed Nursing Past Med/Soc Hx Patient Social History Type Used: Cigarettes, Electronic/Vapor Recent Foreign Travel: No Contact w/Someone Who Travel: No Recent Infectious Disease Expo: No Recent Hopitalizations: No Immunizations Up To Date Date of Pneumonia Vaccine: Jul 14, 2013 Date of Influenza Vaccine: Feb 11, 2015 Seasonal Allergies Seasonal Allergies: Yes Past Medical History Surgeries: Yes (RIGHT KNEE SCOPE) Gallbladder, Hysterectomy, Oophorectomy Respiratory: Yes COPD, Emphysema Cardiac: Yes Hypertension Neurological: Yes Headaches /Migraines : No 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 Disorders: No 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 Sexually Transmitted Disease: No HIV/AIDS: No Gastrointestinal: Yes Gastroesophageal Reflux, Ulcer Musculoskeletal: Yes Degenerate Disk Disease, Arthritis, Fibromyalgia, Chronic Back Pain Endocrine: No Glaucoma Loss of Vision: Bilateral Hearing Impairment: Denies Cancer: No Psychosocial: Yes Anxiety, Depression Integumentary: No Blood Disorders: No Adverse Reaction/Blood Tranf: No Physical Exam Vital Signs Vital Signs - First Documented 03/20/19 19:21 Temp 36.3 Pulse 82 Resp 20 B/P (MAP) 117/67 (84) Pulse Ox 97 O2 Delivery Room Air Capillary Refill : Less Than 3 Seconds Height, Weight, BMI Height: 5'5.00" Weight: 155lbs. 0.0oz. 70.408385rr; 24.00 BMI Method: General Appearance: WD/WN, no apparent distress HEENT: PERRL/EOMI, pharynx normal (edentulous) Neck: non-tender, full range of motion, supple, normal inspection Cardiovascular: normal peripheral pulses, regular rate, rhythm Respiratory: chest non-tender, lungs clear, normal breath sounds Gastrointestinal: normal bowel sounds, soft, no pulsatile mass Extremities: normal capillary refill, pelvis stable, swelling (pain and swelling to right knee with decreased ROM due to pain and swelling), other (pain with ROM of the right knee. Joint effusion present. unable to assess laxity of l igaments of right knee due to patient's pain ) Neurologic/Psychiatric: alert, normal mood/affect, oriented x 3 Skin: normal color, warm/dry Phillip Coma Score Best Eye Response: (4) Open Spontaneously Best Verbal Response: (5) Oriented Best Motor Response: (6) Obeys Commands Phlilip Total: 15 Progress/Results/Core Measures Results/Orders My Orders Orders - ARSAH QUEEN MD Ketorolac Injection (Toradol Injection) (03/20/19 19:28) Fentanyl Injection (Sublimaze Injection (03/20/19 19:28) Knee 3 View Right (03/20/19 19:28) Ct Lumbar Spine Wo (03/20/19 19:28) Miguel Bandage (03/20/19 21:36) Rx-Hydrocodone/Apap 5-325 Mg (Rx-Vicodin (03/20/19 21:45) Medications Given in ED Current Medications Medications Dose Ordered Sig/Pasquale Route Start Time Stop Time Status Last Admin Dose Admin Acetaminophen/ Hydrocodone Bitart 1 ea Q6H PRN PO 03/20/19 21:45 03/20/19 21:48 DC 03/20/19 21:46 1 EA Vital Signs/I&O 03/20/19 03/20/19 19:21 21:38 Temp 36.3 36.3 Pulse 82 84 Resp 20 16 B/P (MAP) 117/67 (84) 120/68 Pulse Ox 97 97 O2 Delivery Room Air Room Air Blood Pressure Mean: 84 Progress Progress Note #1: Progress Note Toradol and fentanyl for pain. Check xrays of the right knee and CT of the Lumbar spine since she reports acute on chronic pain with the spine. Progress Note #2: Progress Note No acute abnormality seen on the CT of the lumbar spine. Appears stable from prior MRI. The right knee x-rays show a small joint effusion but no definite fracture. Diagnostic Imaging Diagonstic Imaging: CT Plain Films/CT/US/NM/MRI: other (lumbar spine) Comments NAME: JARED DUNCAN [facility] REC#: [id number] PT STATUS: REG ER : 1960 PHYSICIAN: ARASH QUEEN MD ADMIT DATE: 03/20/19/ER FS Draft Date of Exam:03/20/19 CT LUMBAR SPINE WO PROCEDURE: CT lumbar spine without contrast. TECHNIQUE: Multiple contiguous axial images were obtained through the lumbar spine without the use of intravenous contrast. Sagittal and coronal reformations were then performed. Auto Exposure Controls were utilized during the CT exam to meet ALARA standards for radiation dose reduction. INDICATION: Fell, back pain. FINDINGS: The reconstructed parasagittal images again show the long-standing compression deformity of L4 that was noted on the previous MRI lumbar spine exam of 02/27/2019. There is no acute bony abnormality appreciated. As noted on the previous MRI lumbar spine exam there is levoscoliosis of the lumbar spine and the patient has undergone a prior laminectomy at L3-L4. The spinal stenosis at L3-L4 and L4-L5, seen previously, do not appear to have progressed. There is no sign of a paraspinal mass. IMPRESSION: 1. There is no evidence for an acute bony abnormality. The compression deformity at L4, seen previously, appears stable. 2. There is spinal stenosis at both L3, L4 and L5. These findings seem similar to the prior MRI lumbar spine exam. 3. If clinical concern regarding an underlying abnormality persists, then repeat MRI lumbar spine exam would be recommended for further study. Dictated on workstation # [id number] Dict: 03/20/192019 Trans: 03/20/192043 [facility] [id number] Interpreted by: GIFTY PAGE MD Electronically signed by: Diagonstic Imaging: Xray Plain Films/CT/US/NM/MRI: knee Comments NAME: JARED DUNCAN [facility] REC#: [id number] PT STATUS: REG ER : 1960 PHYSICIAN: ARASH QUEEN MD ADMIT DATE: 03/20/19/ER FS Draft Date of Exam:03/20/19 KNEE 3 VIEW RIGHT EXAMINATION: Right knee at 7:33 PM INDICATION: Injury, knee pain 3 views were obtained. There is no fracture, dislocation or acute bony abnormality evident. The chondroid lesion in the distal femur seen on the prior exam of 11/23/2011 is again evident and no different. The knee joint itself is fairly well maintained. There is a small joint effusion present, however. The soft tissues are otherwise unremarkable. IMPRESSION: 1. There is no evidence for an acute bony abnormality. 2. There is a small joint effusion present. If there is clinical concern regarding internal derangement, then MRI would be recommended for further study. 3. The chondroid lesion in the distal femur seen previously appear stable. Most likely, this is a benign process such as an enchondroma or bone infarct. Dictated on workstation # [id number] Dict: 03/20/192010 Trans: 03/20/19 2018 [facility] [id number] Interpreted by: GIFTY PAGE MD Electronically signed by: Departure Impression Primary Impression: Sprain of knee Qualified Codes: S83.91XA - Sprain of unspecified site of right knee, initial encounter Additional Impressions: Lumbar contusion Qualified Codes: S30.0XXA - Contusion of lower back and pelvis, initial encounter Acute exacerbation of chronic low back pain Fall at home Qualified Codes: W19.XXXA - Unspecified fall, initial encounter; Y92.009 - Unspecified place in unspecified non-institutional (private) residence as the place of occurrence of the external cause Disposition: 01 HOME, SELF-CARE Condition: Stable Departure-Patient Inst. Decision time for Depature: 21:11 Referrals: [facility] (PCP) Primary Care Physician ALEXANDRU ALVA APRN (Family) Primary Care Physician Patient Instructions: Getting Up From a Fall, Knee Sprain (DC), Low Back Pain in Adults, Preventing Falls Add. Discharge Instructions: Ice and elevate your knee to help with swelling and pain. Use the miguel bandage and see if you can get a knee immobilizer to help with pain and keep your knee stable. Weight bearing as you tolerate it with crutches or walker. Check with clinic for continued problems as you may need to see Orthopedics or Primary provider about your symptoms if not improving with symptomatic care of your knee. Do not take Tramadol and Hydrocodone at the same time. All discharge instructions reviewed with patient and/or family. Voiced unde rstanding. Scripts Leg Brace (Knee Stabilizer) 1 Each Each EACH MC DAILY for knee sprain, #1 0 Refills Wear knee immobilizer for support of right knee Prov: ARASH QUEEN MD 03/20/19 Hydrocodone Bit/Acetaminophen (Hydrocodone/Acetaminophen 5/325mg Tablet) 1 Tab Tab 1 EACH PO Q6H PRN for PAIN-SEVERE MDD 10 for 3 Days, #12 TAB 0 Refills Prov: ARASH QUEEN MD 03/20/19 ARASH QUEEN MD Mar 20, 2019 19:34
--- NOTE | 2019-03-20 20:20 | Diagnostic Imaging Report ---
EXAMINATION: Right knee at 7:33 PM INDICATION: Injury, knee pain 3 views were obtained. There is no fracture, dislocation or acute bony abnormality evident. The chondroid lesion in the distal femur seen on the prior exam of 11/23/2011 is again evident and no different. The knee joint itself is fairly well maintained. There is a small joint effusion present, however. The soft tissues are otherwise unremarkable. IMPRESSION: 1. There is no evidence for an acute bony abnormality. 2. There is a small joint effusion present. If there is clinical concern regarding internal derangement, then MRI would be recommended for further study. 3. The chondroid lesion in the distal femur seen previously appear stable. Most likely, this is a benign process such as an enchondroma or bone infarct. Dictated by: Dictated on workstation # [id number]
--- NOTE | 2019-03-20 20:46 | Diagnostic Imaging Report ---
PROCEDURE: CT lumbar spine without contrast. TECHNIQUE: Multiple contiguous axial images were obtained through the lumbar spine without the use of intravenous contrast. Sagittal and coronal reformations were then performed. Auto Exposure Controls were utilized during the CT exam to meet ALARA standards for radiation dose reduction. INDICATION: Fell, back pain. FINDINGS: The reconstructed parasagittal images again show the long-standing compression deformity of L4 that was noted on the previous MRI lumbar spine exam of 02/27/2019. There is no acute bony abnormality appreciated. As noted on the previous MRI lumbar spine exam there is levoscoliosis of the lumbar spine and the patient has undergone a prior laminectomy at L3-L4. The spinal stenosis at L3-L4 and L4-L5, seen previously, do not appear to have progressed. There is no sign of a paraspinal mass. IMPRESSION: 1. There is no evidence for an acute bony abnormality. The compression deformity at L4, seen previously, appears stable. 2. There is spinal stenosis at both L3- L4 and L4-L5. These findings seem similar to the prior MRI lumbar spine exam. 3. If clinical concern regarding an underlying abnormality persists, then repeat MRI lumbar spine exam would be recommended for further study. Dictated by: Dictated on workstation # [id number]
[2019-03-20 21:38] VITALS: BP 120/68
[2019-03-20] MEDS ORDERED: ACHD5005 PO (21:39)
[2019-03-20] MEDS ORDERED: LEG1EACH50 MC (21:42)
[2019-03-20] MEDS ORDERED: RX-HYDROCODONE/APAP 5/325 MG #4 TAB PK PO PRN (21:45)
== END 2019-03-20 21:48 | disposition home or self-care (01) ==
LOC: EDUNIT# 19:12 → ER FS 19:16
DX: S83.91XA Sprain of unspecified site of right knee, initial encounter (principal); S30.0XXA Contusion of lower back and pelvis, initial encounter; G89.29 Other chronic pain; I10 Essential (primary) hypertension; J43.9 Emphysema, unspecified; G43.909 Migraine, unspecified, not intractable, without status migrainosus; K21.9 Gastro-esophageal reflux disease without esophagitis; M79.7 Fibromyalgia; F41.9 Anxiety disorder, unspecified; F32.9 Major depressive disorder, single episode, unspecified; Z79.51 Long term (current) use of inhaled steroids; Z90.710 Acquired absence of both cervix and uterus; W01.198A Fall on same level from slipping, tripping and stumbling with subsequent striking against other object, initial encounter; Y92.039 Unspecified place in apartment as the place of occurrence of the external cause
CPT/HCPCS: 72131; 73562

== ENCOUNTER → 2019-04-08 | Outpatient (CLI) | payer MEDICARE, MEDICAID ==
[~2019-04-08] MED LIST changes: +LEG1EACH50 MC
--- NOTE | 2019-04-08 15:12 | Diagnostic Imaging Report ---
EXAMINATION: Magnetic resonance imaging of the right knee without intravenous contrast. DATE: April 08, 2019. COMPARISON: Right knee radiographs of March 20, 2019. MRI right knee dating back to April 16, 2014. INDICATION: 59-year-old female, right knee pain. Injury in March 2019. TECHNIQUE: Multiplanar/multisequence noncontrast enhanced MR imaging was accomplished. FINDINGS: MENISCI: There is signal in the body and posterior horn of the medial meniscus not meeting strict MRI criteria for a diagnosis of tear. The lateral meniscus is intact. LIGAMENTS AND TENDONS: The anterior and posterior cruciate ligaments are intact. The medial collateral ligament is intact. The iliotibial band, mid third lateral capsular ligament, fibular collateral ligament, biceps femoris tendon, and conjoined tendon are intact. The quadriceps tendon and patella ligament are intact. JOINT: The articular cartilage is grossly intact. There is a moderate-sized knee joint effusion with internal blood product. BONE: There is a T2 hyperintense lobulated lesion in the distal femur which involves most of the distal femoral metaphysis with extension into the distal femoral epiphysis which measures 2.9 x 2.7 x 2.8 cm in size. On the prior MRI of April 16, 2014, this previously measured approximately 2.6 x 2.7 x 2.7 cm in size. This lesion is essentially unchanged in size or very minimally increased in size since April 2014. This is most consistent with a benign enchondroma. There is a comminuted acute fracture involving the distal femur with intra-articular fracture extension involving the lateral femoral condyle well illustrated on coronal STIR sequence image 12 with roughly 1 to 2 mm offset of the articulating surface at this location. The fracture also extends to involve the lateral aspect of the lateral femoral condyle with fracture extension both proximal and distal to the femoral attachment site for the lateral collateral ligament. There is prominent adjacent marrow edema. The fracture also has more proximal extension to involve the anterior aspect of the distal femoral metaphysis and extends near the medial margin of the medial femoral trochlea. There is fracture extension to involve the intercondylar notch. BURSAE AND SOFT TISSUES: There is a very small amount of fluid in the popliteal fossa without sizable Tyler's cyst. IMPRESSION: 1. Acute very mildly displaced fracture of the distal femur including involvement of the articulating surface of the lateral femoral condyle with 1 to 2 mm offset of the articulating surface and additional fracture extension as above. 2. Redemonstrated cartilage matrix lesion in the distal femur with essentially unchanged size since April 2014, consistent with an enchondroma. 3. Intact menisci and cruciate ligaments. Additional ligaments and tendons are intact. 4. The report was called and faxed to the office of Courtney Gomez APRN, by [email or web address]@2:46 PM. Dictated by: Dictated on workstation # [id number]
== END ==
LOC: RAD 12:46
PROVIDERS: ATTEND Nurse Practitioner Primary Care
DX: S72.421A Displaced fracture of lateral condyle of right femur, initial encounter for closed fracture (principal)
CPT/HCPCS: 73721

== ENCOUNTER → 2019-04-15 | Outpatient (CLI) | payer MEDICARE, MEDICAID ==
[~2019-04-15] VITALS: Ht 165 cm; Wt 58.0 kg
[~2019-04-15] MED LIST changes: +CATHETER FLUSH 10 ML SYR IV PRN; +REGADENOSON 0.4 MG/5 ML SYR (LEXISCAN) IV ONE
[2019-04-15 09:39] VITALS: BP 127/68
[2019-04-15 09:42] VITALS: BP 153/70
--- NOTE | 2019-04-15 14:18 | STRESS TEST ---
DATE OF SERVICE: 04/15/2019 RESTING AND POST REGADENOSON TECHNETIUM-99M TETROFOSMIN SPECT CT IMAGING ORDERING PHYSICIAN: Dr. Looney. PRIMARY PHYSICIAN: [facility]. CLINICAL DIAGNOSES: Shortness of breath, coronary artery disease, hypertension, hyperlipidemia. Baseline images were carried out after injection of 10.47 mCi of technetium-99m Tetrofosmin. This was followed by 0.4 mg regadenoson and 30.2 mCi of technetium-99m Tetrofosmin for stress imaging. The electrocardiogram showed sinus rhythm at baseline. The electrocardiogram did not change significantly with the regadenoson infusion. The patient tolerated the procedure well. Review of images at rest and following stress does not indicate any significant perfusion defects consistent with myocardial ischemia or infarction. Gated images show normal global left ventricular systolic function with normal regional wall motion. Left ventricular ejection fraction is calculated to be 74%. CONCLUSIONS: 1. No evidence of any significant myocardial ischemia or infarction on this study. 2. Normal regional wall motion. 3. Normal global left ventricular systolic function with a calculated ejection fraction of 74%. Job ID: [id number] DocumentID: [id number] Dictated Date: 04/15/2019 14:12:13 Child Guidance Counselor Date: 04/15/2019 14:17:45 Dictated By: REID LOONEY MD, MA, FACP, FACC,
== END ==
LOC: CARD 08:07
PROVIDERS: ATTEND Internal Medicine Cardiovascular Disease
DX: I25.10 Atherosclerotic heart disease of native coronary artery without angina pectoris (principal); I10 Essential (primary) hypertension; E78.5 Hyperlipidemia, unspecified; I65.29 Occlusion and stenosis of unspecified carotid artery
CPT/HCPCS: 78452; 93017

== ENCOUNTER 2019-05-13 11:12 | Outpatient (CLI) | payer MEDICARE, MEDICAID ==
[~2019-05-13] VITALS: Ht 160 cm; Wt 58.2 kg
[~2019-05-13 11:12] MED LIST changes: -CATHETER FLUSH 10 ML SYR IV PRN; -REGADENOSON 0.4 MG/5 ML SYR (LEXISCAN) IV ONE
[2019-05-13 11:26] VITALS: BP 108/67
[2019-05-13 12:08] LABS: BASOPHILS % (AUTO) 0 % (0-10); EOSINOPHILS % (AUTO) 0 % (0-10); HEMATOCRIT 42 % (35-52); HEMOGLOBIN 13.6 G/DL (11.5-16.0); LYMPHOCYTES % (AUTO) 27 % (12-44); MEAN CORPUSCULAR HEMOGLOBIN 29 PG (25-34); MEAN CORPUSCULAR HGB CONC 33 G/DL (32-36); MEAN CORPUSCULAR VOLUME 90 FL (80-99); MEAN PLATELET VOLUME 10.4 FL (7.4-10.4); MONOCYTES # (AUTO) 0.6 X 10^3 (0.0-1.0); MONOCYTES % (AUTO) 9 % (0-12); NEUTROPHILS # (AUTO) 4.7 X 10^3 (1.8-7.8); NEUTROPHILS % (AUTO) 64 % (42-75); PLATELET COUNT 218 10^3/uL (130-400); RED CELL DISTRIBUTION WIDTH 14.2 % (10.0-14.5); WHITE BLOOD COUNT 7.4 10^3/uL (4.3-11.0)
[2019-05-13 12:25] LABS: BUN/CREATININE RATIO 8; CALCIUM 8.6 MG/DL (8.5-10.1); CARBON DIOXIDE 24 MMOL/L (21-32); CHLORIDE 105 MMOL/L (98-107); CREATININE SERUM 0.76 MG/DL (0.60-1.30); GFR ESTIMATED > 60; GLUCOSE 82 MG/DL (70-105); POTASSIUM 3.8 MMOL/L (3.6-5.0); SODIUM 140 MMOL/L (135-145)
[2019-05-13] MEDS ORDERED: TOPI100T11 PO (13:14)
[2019-05-13] MEDS ORDERED: ALEN70TA5 PO (13:15)
[2019-05-13] MEDS ORDERED: SUCR1TAB PO (13:15)
[2019-05-13] MEDS ORDERED: ATOR20TA66 PO (13:15)
[2019-05-13] MEDS ORDERED: DIVA500T15 PO (13:15)
[2019-05-13] MEDS ORDERED: BUPR100T15 PO (13:15)
[2019-05-13] MEDS ORDERED: HYDR-3812 PO (13:15)
[2019-05-13] MEDS ORDERED: TRAM50TA2 PO (15:30)
[2019-05-13] MEDS ORDERED: ICOS1CAP PO (15:30)
[2019-05-13] MEDS ORDERED: MELA5CAP PO (15:31)
[2019-05-13] MEDS ORDERED: ASPI-983 PO (15:31)
[2019-05-13] MEDS ORDERED: ALBU2.5V4 NEB (15:36)
== END 2019-05-13 11:55 | disposition home or self-care (01) ==
LOC: PREOP 11:12
PROVIDERS: ATTEND Orthopaedic Surgery
DX: Z01.812 Encounter for preprocedural laboratory examination (principal); M48.061 Spinal stenosis, lumbar region without neurogenic claudication; Z22.322 Carrier or suspected carrier of Methicillin resistant Staphylococcus aureus
CPT/HCPCS: 36415; 80048; 85025; 86850; 86900; 86901; 87081

== ENCOUNTER 2019-05-19 06:37 | Inpatient (IN) | payer MEDICARE, MEDICAID ==
--- NOTE | 2019-05-13 15:45 | NUR ---
CALLED THE PATIENT AND WENT OVER THE EXT MED HX WITH HER. SHE VERIFIED HOW SHE TAKES THEM. SHE STILL CAN NOT FIND HER MED LIST BUT STATES SHE GETS EVERYTHING AT [facility]. HER VASCEPA WAS FILLED #360 FOR 90 DAYS 12-25-18 - SHE STATES SHE TAKES IT BID. SHE NO LONGER TAKING HYDROCODONE, SHE ONLY TAKES TRAMADOL, SHE STATES SHE TAKES IT THREE TIMES DAILY USUALLY BUT CAN TAKE IT UP TO FOUR TIMES DAILY. SHE STATES SHE USES A NEBULIZER SOLUTION DAILY, I CALLED [facility] AND THEY VERIFIED SHE FILLED 0.083% SOLUTION OVER A YEAR AGO. THEY ALSO VERIFIED THE LYRICA HAS NOT BEEN FILLED SINCE LIKE WHAT IS SHOWN ON THE EXT MED HX, I NOTED THE PAST DUE FILL DATE ON THE MED REC. SHE TAKES THE FOLLOWING OTC: ASPIRIN 81MG DAILY MELATONIN 5MG HS SHE STATES SHE USES FLONASE NASAL SPRAY NEEDED AND HAS A VENTOLIN INHALER BUT SHE RARELY USES THESE TWO MEDICATIONS.
[2019-05-19] VITALS (12 sets, daily range): BP systolic 92–122; BP diastolic 44–66
[~2019-05-19] VITALS: Ht 165.1 cm; Wt 70.3 kg
[~2019-05-19 06:37] MED LIST changes: +ALBU2.5V4 NEB; +ALEN70TA5 PO; +ASPI-983 PO; +ATOR20TA66 PO; +BUPR100T15 PO; +DIVA500T15 PO; +HYDR-3812 PO; +ICOS1CAP PO; +MELA5CAP PO; +SUCR1TAB PO; +TRAM50TA2 PO
[2019-05-19] MEDS ORDERED: BUP/EPI 0.5% 1:200,000 (SENSORCAINE) 30 ML VIAL ONE (06:44)
[2019-05-19] MEDS ORDERED: VANCOMYCIN 1000 MG/VIAL ONE (06:44)
[2019-05-19] MEDS ORDERED: BACITRACIN OINTMENT 28 GM TUBE ONE (06:44)
[2019-05-19] MEDS ORDERED: ceFAZolin 2 GM/50 ML NS 50 ML IV ONE (06:45)
[2019-05-19] MEDS ORDERED: proPOfol 200 MG/20 ML (DIPRIVAN) VIAL IV ONE ×2 (06:53→09:21)
[2019-05-19] MEDS ORDERED: NEOSTIGMINE 3 MG/3 ML VIAL ONE ×2 (06:53→09:40)
[2019-05-19] MEDS ORDERED: DEXAMETHASONE 10 MG/ML (DECADRON) 1 ML VIAL ONE (06:53)
[2019-05-19] MEDS ORDERED: SEVOFLURANE (ULTANE) 15 ML INHAL SOLN ONE (06:53)
[2019-05-19] MEDS ORDERED: ONDANSETRON 4 MG/2 ML (SDV) Z0FRAN ONE (06:53)
[2019-05-19] MEDS ORDERED: GLYCOPYRROLATE 0.2 MG/ML (ROBINUL) 2 ML VIAL ONE ×2 (06:53→09:40)
[2019-05-19] MEDS ORDERED: SUCCINYLCHOLINE INJ 100 MG/5 ML SYR ONE (06:53)
[2019-05-19] MEDS ORDERED: LIDOCAINE PF 2% 5 ML (XYLOCAINE) VIAL ONE (06:53)
[2019-05-19] MEDS ORDERED: ROCURONIUM 10 MG/ML 5 ML SYRINGE IV ONE (06:53)
[2019-05-19] MEDS ORDERED: PROPOFOL INJECTION 50 ML IV ONE (06:54)
[2019-05-19] MEDS ORDERED: MIDAZOLAM 2 MG/2 ML (VERSED) VIAL ONE (06:54)
[2019-05-19] MEDS ORDERED: fentaNYL INJECTION 250 MCG/5 ML AMP ONE (06:54)
[2019-05-19] MEDS: LACTATED RINGERS 1,000 ML IV PRN ×4 (07:10→15:26)
[2019-05-19] MEDS ORDERED: BACITRACIN 100,000 UNIT/NS 1000 ML POUR BOTTLE IR ONE ×2 (07:45)
[2019-05-19] MEDS ORDERED: PHENYLEPHRINE 100 MCG/ML 10 ML (ANESTHESIA) SYR ONE (07:48)
--- NOTE | 2019-05-19 09:53 | Diagnostic Imaging Report ---
INDICATION: Interbody fusion. COMPARISON: None. TOTAL FLUOROSCOPY TIME: 87 seconds. TOTAL NUMBER OF FLUOROSCOPIC IMAGES SAVED: 6. FINDINGS: Multiple intraoperative image intensifier views of the lumbar spine were obtained during interbody fusion. A lateral and posterior approach is identified at the L3-L4 level. Please note, the interpreting radiologist was not present during the procedure. IMPRESSION: Fluoroscopic guidance was provided during lumbar fusion. Dictated by: Dictated on workstation # [id number]
[2019-05-19] MEDS ORDERED: CYCLOBENZAPRINE 10 MG (FLEXERIL) TAB PO PRN (10:00)
[2019-05-19] MEDS ORDERED: ACETAMINOPHEN 325 MG TABLET PO PRN (10:00)
[2019-05-19] MEDS ORDERED: SUMAtriptan 50 MG (IMITREX) TAB PO PRN (10:00)
[2019-05-19] MEDS ORDERED: RT-ALBUTEROL SULF 2.5 MG/3 ML PRE-MIX VIAL IH PRN (10:00)
[2019-05-19] MEDS ORDERED: ONDANSETRON 4 MG/2 ML (SDV) Z0FRAN IV PRN (10:00)
[2019-05-19] MEDS ORDERED: NON-FORMULARY MEDICATION 1 EA EA (Fluticasone Propionate 2 SPRAYS) NSEACH PRN (10:00)
[2019-05-19] MEDS ORDERED: ONDANSETRON 4 MG/2 ML (SDV) Z0FRAN IVP PRN (10:15)
[2019-05-19] MEDS ORDERED: HYDROmorphone 2 MG/ML VIAL (DILAUDID) IV ONE (10:15)
[2019-05-19] MEDS ORDERED: morphine INJ 10 MG/ML 1ML (SYR OR VIAL) IVP ONE (10:15)
--- NOTE | 2019-05-19 11:00 | NUR ---
JARED DUNCAN admitted to room 424-1, with an admitting diagnosis of LUMBAR FUSIONAND SPINAL FUSION, on 05/19/19 from via BED, accompanied by STAFF.JARED DUNCAN introduced to surroundings, call light, bed controls, phone, TV, temperature control, lights, meal times, smoking policy, visitor policy, side rail policy, bathrooms and showers. Patient Rights given to patient in the handbook.JARED DUNCAN verbalizes understanding that [facility] is not responsible for the loss or damage to any personal effects or valuables that are kept in the patients posession during their hospitalization. The following Patient Care Plans were discussed with the PT: Discharge Planning, PAIN CONTROL,IV THERAPY, and TESTS AND PROCEDURES. JARED DUNCAN verbalizes understanding of Interdisciplinary Patient Education. Patient and/or family were informed about the Rapid Response Team and its purpose.
[2019-05-19] MEDS ORDERED: oxyCODONE/APAP 5/325MG (PERCOCET 5) TABLET ONE (12:30)
[2019-05-19] MEDS: NICOTINE 21 MG (NICODERM) PATCH TD SCH (12:34)
[2019-05-19] MEDS: oxyCODONE/APAP 5/325MG (PERCOCET 5) TABLET PO PRN ×3 (12:35→21:20)
[2019-05-19] MEDS ORDERED: FLUTICASONE NASAL SPRAY (FLONASE) 16 GM BTL NS PRN (12:45)
[2019-05-19] MEDS: SUCRALFATE 1 GM (CARAFATE) TAB PO SCH ×2 (13:28→21:18)
[2019-05-19] MEDS: PREGABALIN 100 MG (LYRICA) CAPSULE PO SCH ×2 (13:28→21:18)
[2019-05-19] MEDS: fentaNYL INJECTION 100 MCG/2 ML AMP IVP PRN ×2 (13:33→18:07)
--- NOTE | 2019-05-19 14:36 | OPERATIVE REPORT ---
DATE OF SERVICE: 05/19/2019 SURGEON: Christopher Gomez DO HIGH LIFT MULE OPERATOR: SHAUNA Foy. This is a medically necessary procedure. Heater Operator was necessary for retraction of vital neurovascular structures. Without an budget assistant, the procedure would not be possible. PREOPERATIVE DIAGNOSES: 1. Lumbar radiculopathy. 2. Lumbar spinal stenosis (subluxation, foraminal, bony). 3. Lumbar spondylolisthesis, L3-L4. POSTOPERATIVE DIAGNOSES: 1. Lumbar radiculopathy. 2. Lumbar spinal stenosis (subluxation, foraminal, bony). 3. Lumbar spondylolisthesis, L3-L4. PROCEDURES PERFORMED: 1. L3-L4 direct lateral interbody lumbar fusion. 2. Application of titanium interbody cage, L3-L4. 3. Application of anterior instrumentation, L3-L4. 4. Revision complete right facetectomy L3-L4. 5. Application of posterior instrumentation, L3-L4. 6. Posterior spinal fusion L3-L4. 7. Use of human allograft for spine. 8. Use of local bone autograft. COMPLICATIONS: None. SPECIMEN SENT: None. DRAINS PLACED: Subfascial Hemovac. ESTIMATED BLOOD LOSS: Minimal. ANESTHESIA: General endotracheal tube anesthesia with local anesthetic. HISTORY OF PRESENT ILLNESS: The patient is a very pleasant 59-year-old female with a history of lumbar degenerative scoliosis and an L3-L4 spondylolisthesis. She did have a history of prior laminectomy at L3-L4. She now had some instability there with resultant subluxation on stenosis and significant lateral listhesis. She did wish to proceed with operative intervention. She understood the risks and benefits. OPERATION: The patient was identified by name on wrist band in the preoperative holding area. Her operative site was signed, consent was signed. SCDs were placed. Neuro monitoring was hooked up and antibiotics were started. She was taken to the operating room theater and placed under general endotracheal tube anesthesia and then transferred to the operating room table in the lateral position with the left side up. She was secured to the table with 3-inch silk tape. She was prepped and draped in the usual sterile fashion. Formal timeout was conducted. I then made a longitudinal incision over the L3-L4 disk space. I proceeded with a standard lateral retroperitoneal transpsoas approach docking a table mounted tubular Danforth retractor to the midpoint of the L3-L4 disk space. I used EMG neuro monitoring to exclude the presence of any nerves. I performed an annulotomy followed by complete diskectomy. I then sized and chose the appropriate titanium interbody cage packed with human allograft and seated in the midline position. Due to the patient's scoliosis as well as the lateral listhesis which needed reduction, I opted to place anterior instrumentation to help snug that plate up against the lateral aspect of the vertebral bodies and reduce the deformity. Therefore, I placed a plate over the midpoint. I placed that screw through the plate and into the body of L3 and another one through the plate into the body of L4, I finally tightened those screws. AP and lateral x-ray demonstrated good positioning of the implants. I irrigated, maintained hemostasis and closed the wound utilizing 0 Vicryl followed by 2-0 Vicryl followed by running 3-0 subcuticular stitch. I applied dressings and placed the patient in the prone position on a radiolucent Vlad table. I prepped and draped the patient in the usual sterile fashion. I made a midline lumbar incision over the old scar line and performed bilateral subperiosteal paraspinal muscular approach exposing the L3-L4 level. I did this through significant scar tissue, which made the remainder of the procedure quite difficult. I then used fluoroscopy to place pedicle screws bilaterally in L3 and L4. AP and lateral x-ray demonstrated good positioning of the screws and I used EMG neuro monitoring to further confirm their safe location. At this point, I performed a revision facetectomy on the right side at L3-L4 completely decompressing the exiting nerve root. I then obtained a daniel on the left daniel on the right, placed set screws. I distracted daniel the right to further open up the neural foramen. I finally tightened the set screws. I irrigated the wound, maintained hemostasis. I packed a mixture of human allograft and local bone autograft in the left and right gutter to promote posterior spinal fusion. I placed a subfascial Hemovac drain and closed the wound utilizing 0 Vicryls followed by 2-0 Vicryls followed by running 3-0 subcuticular stitch. I applied dressings and then took the patient in the supine position to the PACU where she awoke without incident. She tolerated the procedure well. PLAN: At this time is to admit the patient for IV antibiotics, IV pain control and postoperative monitoring. We will have the patient out of bed on postop day #1 with the brace on. Discontinue the drain and Reyes catheter per my protocol. Job ID: [id number] DocumentID: [id number] Dictated Date: 05/19/2019 09:51:11 Assembly Line Leader Date: 05/19/2019 14:36:05 Dictated By: CHRISTOPHER GOMEZ DO
[2019-05-19] MEDS: ceFAZolin INJECTION 1,000 MG in WATER (STERILE) FOR INJECTION 10 ML IV SCH ×2 (15:25→23:23)
--- NOTE | 2019-05-19 16:00 | NUR ---
TRUE VILLATORO NOTIFIED OF PT HAVING EDEMA TO RIGHT FLANK INC AREA WITH SL. BRUISING AND LARGE AMT RED DRAINAGE FROM BACK INC. AREA. DRESSING CHANGED TO BACK. STERI-STRIPS IN PLACE. PRESSURE DRESSING APPLIED TO BACK INC. AREA WITH 4 X 4'S. AND PRESSURE DRESSING APPLIED TO RIGHT FLANK AREA. ICE TO BOTH INC. AREA'S CONT.
--- NOTE | 2019-05-19 18:25 | NUR ---
NO ACTIVE BLEEDING AT THIS TIME TO INC. AREA'S. UP TO BSC , LUCA. WELL. VOIDED WELL.
[2019-05-19] MEDS ORDERED: NON-FORMULARY MEDICATION 1 EA EA (Topiramate 100 MG) PO SCH (21:00)
[2019-05-19] MEDS ORDERED: ESCITALOPRAM OXALATE 30 MG PO SCH (21:00)
[2019-05-19] MEDS ORDERED: NON-FORMULARY MEDICATION 1 EA EA (Melatonin 5 MG) PO SCH (21:00)
[2019-05-19] MEDS: MONTELUKAST 10 MG (SINGULAIR) TAB PO SCH (21:18)
[2019-05-19] MEDS: FAMOTIDINE 20 MG (PEPCID) TABLET PO SCH (21:19)
[2019-05-19] MEDS: MELATONIN 3 MG TABLET PO SCH (21:19)
[2019-05-19] MEDS: toPIRamate 100 MG (TOPAMAX) TAB PO SCH (21:21)
[2019-05-19] MEDS: LATANOPROST 0.005% (XALATAN) OPHTH SOLN 2.5 ML OU SCH (21:21)
[2019-05-20 00:05] VITALS: BP 89/51
[2019-05-20] MEDS: oxyCODONE/APAP 5/325MG (PERCOCET 5) TABLET PO PRN ×3 (03:19→13:28)
--- NOTE | 2019-05-20 03:30 | NUR ---
Up to bedside commode to void. Incision to medial back actively draining. Dressing changed - new folded 4x4 gauze pads applied and covered with op-site. Dressing to left side/hip area changed also - Steri-strips intact - no drainage noted; incision covered with folded 4x4 gauze and op-site applied. Pt tolerated well. Hemovac drain remains in place.
[2019-05-20 04:20] VITALS: BP 112/53
[2019-05-20 05:04] LABS: HEMOGLOBIN 12.3 G/DL (11.5-16.0); MEAN PLATELET VOLUME 10.8 FL (7.4-10.4); RED CELL DISTRIBUTION WIDTH 14.5 % (10.0-14.5); WHITE BLOOD COUNT 7.5 10^3/uL (4.3-11.0)
[2019-05-20 05:23] LABS: ALANINE AMINOTRANSFERASE 278 U/L (0-55); ALBUMIN 3.2 GM/DL (3.2-4.5); ALKALINE PHOSPHATASE 152 U/L (40-136); BILIRUBIN,TOTAL 0.2 MG/DL (0.1-1.0); BUN/CREATININE RATIO 8; CARBON DIOXIDE 24 MMOL/L (21-32); CHLORIDE 108 MMOL/L (98-107); CREATININE SERUM 0.78 MG/DL (0.60-1.30); GFR ESTIMATED > 60; GLUCOSE 99 MG/DL (70-105); POTASSIUM 3.7 MMOL/L (3.6-5.0); SODIUM 141 MMOL/L (135-145); TOTAL PROTEIN 5.2 GM/DL (6.4-8.2)
[2019-05-20] MEDS: ceFAZolin INJECTION 1,000 MG in WATER (STERILE) FOR INJECTION 10 ML IV SCH (06:27)
[2019-05-20] MEDS: MULTIVIT W/MINERALS TAB (THERAGRAN M) PO SCH (06:27)
[2019-05-20 08:00] VITALS: BP 97/49
[2019-05-20] MEDS ORDERED: RT-ADVAIR HFA 115/21 MCG PER PUFF IH SCH (08:00)
[2019-05-20] MEDS: buPROPion 100 MG (WELLBUTRIN) TAB PO SCH (08:29)
[2019-05-20] MEDS: FAMOTIDINE 20 MG (PEPCID) TABLET PO SCH ×2 (08:29→20:46)
[2019-05-20] MEDS: SUCRALFATE 1 GM (CARAFATE) TAB PO SCH ×3 (08:30→20:46)
[2019-05-20] MEDS: DIVALPROEX EXT RELEASE 500 MG (DEPAKOTE ER) TAB PO SCH (08:30)
[2019-05-20] MEDS: toPIRamate 100 MG (TOPAMAX) TAB PO SCH ×2 (08:30→20:46)
[2019-05-20] MEDS: PREGABALIN 100 MG (LYRICA) CAPSULE PO SCH ×3 (08:30→20:46)
[2019-05-20] MEDS: PANTOPRAZOLE 40 MG (PROTONIX) TAB PO SCH (08:30)
[2019-05-20] MEDS: FUROSEMIDE 20 MG (LASIX) TAB PO SCH (08:31)
[2019-05-20] MEDS: ISOSORBIDE MONONITRATE 30 MG (IMDUR) TAB PO SCH (08:38)
[2019-05-20] MEDS: NICOTINE 21 MG (NICODERM) PATCH TD SCH (08:39)
[2019-05-20] MEDS: NICOTINE PATCH REMOVAL TP SCH (08:39)
[2019-05-20] MEDS: KCL 10 MEQ TAB (MICRO K) PO SCH (08:43)
[2019-05-20] MEDS ORDERED: NON-FORMULARY MEDICATION 1 EA EA (Fluticasone/Vilanterol (Breo Ellipta 100-25 Mcg INH) 1 P IH SCH (09:00)
[2019-05-20] MEDS ORDERED: NON-FORMULARY MEDICATION 1 EA EA (Esomeprazole Magnesium 40 MG) PO SCH (09:00)
--- NOTE | 2019-05-20 09:58 | Diagnostic Imaging Report ---
INDICATION: Postop. FINDINGS: Posterior and lateral L3-L4 fusion has been performed. The hardware appears intact and well-positioned. There is mild leftward convexity lower lumbar scoliotic curvature. No anterior or posterior listhesis. IMPRESSION: Post operative change. No suspicious finding. Interval surgery is presumed to account for small amounts of pneumoperitoneum seen best on the lateral view. Dictated by: Dictated on workstation # [id number]
[2019-05-20] MEDS: RT-ALBUTEROL SULF 2.5 MG/3 ML PRE-MIX VIAL INH SCH (10:19)
[2019-05-20] MEDS: BREO ELLIPTA IH SCH (10:19)
[2019-05-20] MEDS: UMECLIDINIUM BROMIDE (INCRUSE ELLIPTA) 7'S IH SCH (10:19)
--- NOTE | 2019-05-20 10:32 | Physical Therapy Evaluation ---
PT Evaluation-General Medical Diagnosis Admission Date May 19, 2019 at 06:37 Medical Diagnosis: stenosis Onset Date: May 19, 2019 Therapy Diagnosis Therapy Diagnosis: debility Height/Weight Height (Feet): 5 Height (Inches): 5.00 Weight (Pounds): 155 Weight (Ounces): 0.0 Precautions Precautions/Isolations: Fall Prevention, Standard Precautions Weight Bear Status Right Lower Extremity: Right Full Weight Bearing Left Lower Extremity: Left Full Weight Bearing Referral Physician: Jason Reason for Referral: Evaluation/Treatment Medical History Pertinent Medical History: GERD Additional Medical History scoliosis Current History s/p L3-4 fusion Reviewed History: Yes Social History Home: Apartment Current Living Status: Alone (has caregiver) Entry Into Home: Level Entry Prior Prior Level of Function SCALE: Activities may be completed with or without assistive devices. 0-Ankzpqsaii-gylfymv completes the activity by him/herself with no assistance from a helper. 5-Set-up or Clean-up Assistance-helper sets up or cleans up; patient completes activity. [place] assists only prior to or following the activity. 4-Supervision or Touching Assistance-helper provides verbal cues and/or touching/steadying and/or contact guard assistance as patient completes activity. Assistance may be provided throughout the activity or intermittently. 3-Partial/Moderate Assistance-helper does LESS THAN HALF the effort. [place] lifts, holds or supports trunk or limbs, but provides less than half the effort. 2-Substantial/Maximal Assistance-helper does MORE THAN HALF the effort. [place] lifts or holds trunk or limbs and provides more than half the effort. 7-Rqvjhxybq-cdmfem does ALL the effort. Patient does none of the effort to complete the activity. Or, the assistance of 2 or more helpers is required for the patient to complete the activity. If activity was not attempted, code reason: 7-Patient Refused. 9-Not Applicable-not attempted and the patient did not perform the activity before the current illness, exacerbation or injury. 10-Not Attempted due to Environmental Limitations-(lack of equipment, weather restraints, etc.). 88-Not Attempted due to Medical Conditions or Safety Concerns. Bed Mobility: 6 Transfers (B,C,W/C): 6 Gait: 6 Stairs: 9 Indoor Mobility (Ambulation): Independent Stairs: Not Applicalbe Prior Devices Use: Walker (4WW) PT Evaluation-Current Subjective Patient agrees to PT. Pain Numeric Pain Scale: 5-Moderate Pain Location: Lower Location Body Site: Back Pain Description: Acute Objective Patient Orientation: Normal For Age ROM/Strength ROM Lower Extremities bilateral LE WFL Strength Lower Extremities 4-/5 grossly bilateral LE Integumentary/Posture Integumentary refer to nursing notes Bowel Incontinence: No Bladder Incontinence: No Posture WFL Neuromuscular (Tone, Coordination, Reflexes) grossly intact with all Sensory Vision: Wears Glasses Hearing: Functional Sensation Right Lower Extremit: Intact Sensation Left Lower Extremity: Intact Transfers Roll Left to Right (QC): 5 Sit to Lying (QC): 5 Lying to Sitting/Side of Bed(Q: 5 Sit to Stand (QC): 5 Chair/Ufu-mf-Kebhy Xfer(QC): 5 Car Transfer (QC): 88 Gait Does the Patient Walk?: Yes Mode of Locomotion: Walk Anticipated Mode of Locomotion: Walk Walk 10 feet (QC): 5 Walk 50 ft with 2 Turns(QC): 5 Walk 150 ft (QC): 5 Walking 10ft/uneven surface-QC: 5 Distance: 300' Gait Assistive Device: FWW Comments/Gait Description slow, steady, safe and functional Wheelchair Training Does the Pt Use a Wheelchair?: No Wheel 50 ft with 2 turns (QC): 9 Wheel 150 ft (QC): 9 Type of Wheelchair: Manual Stairs 1 Step (curb) (QC): 9 4 Steps (QC): 9 12 Steps (QC): 9 Balance Sitting Static: Normal Standing Static: Normal Standing Dynamic: Normal Picking up an Object (QC): 88 Assessment/Needs 59 y.o. female, will benefit from skilled PT to address functional strength and mobility to improve current LOF to safely return to home at maximum LOF. Rehab Potential: Good PT Shelter Goals Shelter Goals PT Rehabilitation Services Director Goals Time Frame: May 24, 2019 Roll Left & Right (QC): 6 Sit to Lying (QC): 6 Lying-Sitting on Side/Bed(QC): 6 Sit to Stand (QC): 6 Chair/Qyb-zn-Sgrci Xfer(QC): 6 Toilet Transfer (QC): 6 Car Transfer (QC): 6 Does the Patient Walk: Yes Walk 10 feet (QC): 6 Walk 50ft with 2 Turns (QC): 6 Walk 150 ft (QC): 6 Walking 10ft on Uneven Surface: 6 1 Step (curb) (QC): 9 4 Steps (QC): 9 12 Steps (QC): 9 Picking up an Object (QC): 5 Does the Pt use WC or Scooter?: No Type: N/A Type: N/A PT Plan Treatment/Plan Treatment Plan: Continue Plan of Care Treatment Plan: Bed Mobility, Education, Functional Activity Thad, Functional Strength, Gait, Safety, Therapeutic Exercise, Transfers Treatment Duration: May 24, 2019 Frequency: 11 times per week Estimated Hrs Per Day: .5 hour per day Patient and/or Family Agrees t: Yes Time/GCodes Time In: 915 Time Out: 932 Total Billed Treatment Time: 17 Total Billed Treatment 1 visit EVModC 17 min KANWAL DAVID PT May 20, 2019 10:32 POS
[2019-05-20] MEDS: fentaNYL INJECTION 100 MCG/2 ML AMP IVP PRN ×2 (10:46→18:49)
--- NOTE | 2019-05-20 11:33 | NUR ---
CM/SS: Visited with pt to discuss discharge Plan: Referral for home care services upon discharge DME: Pt request standard front wheeled walker, and possible commode Summary: Pt reports doing ok and that she would like to leave the hospital tomorrow. Pt reports that she had back surgery before and she would like home care like before. 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 Pt has determined that she would like Home care and preference for DME is [facility] as she has other medical equipment from there. Choice form to be offered and information sent to identified providers.
--- NOTE | 2019-05-20 11:49 | Physical Therapy Daily Note ---
PT Daily Note-Current Subjective Patient agrees to PT. No c/o. Pain Numeric Pain Scale: 5-Moderate Pain Location: Lower Location Body Site: Back Pain Description: Acute Mental Status Patient Orientation: Normal For Age Attachments: Drains Transfers SCALE: Activities may be completed with or without assistive devices. 4-Yjgfguggnr-gjjpbmi completes the activity by him/herself with no assistance from a helper. 5-Set-up or Clean-up Assistance-helper sets up or cleans up; patient completes activity. [place] assists only prior to or following the activity. 4-Supervision or Touching Assistance-helper provides verbal cues and/or touching/steadying and/or contact guard assistance as patient completes activity. Assistance may be provided throughout the activity or intermittently. 3-Partial/Moderate Assistance-helper does LESS THAN HALF the effort. [place] lifts, holds or supports trunk or limbs, but provides less than half the effort. 2-Substantial/Maximal Assistance-helper does MORE THAN HALF the effort. [place] lifts or holds trunk or limbs and provides more than half the effort. 7-Zoryqqldh-bhwtoa does ALL the effort. Patient does none of the effort to complete the activity. Or, the assistance of 2 or more helpers is required for the patient to complete the activity. If activity was not attempted, code reason: 7-Patient Refused. 9-Not Applicable-not attempted and the patient did not perform the activity before the current illness, exacerbation or injury. 10-Not Attempted due to Environmental Limitations-(lack of equipment, weather restraints, etc.). 88-Not Attempted due to Medical Conditions or Safety Concerns. Sit to Stand (QC): 5 Toilet Transfer (QC): 5 Weight Bearing Right Lower Extremity: Right Full Weight Bearing Left Lower Extremity: Left Full Weight Bearing Gait Training Does the Patient Walk?: Yes Distance: 400' Walk 10 feet (QC): 5 Walk 50 ft with 2 Turns(QC): 5 Walk 150 ft (QC): 5 Gait Assistive Device: FWW steady with no deviation Assessment Patient instructed to ambulate PRN in hallway with caregiver or independently with FWW with back brace in place. RN notified. PT Usp Goals Usp Goals PT Usp Goals Time Frame: May 24, 2019 Roll Left & Right (QC): 6 Sit to Lying (QC): 6 Lying-Sitting on Side/Bed(QC): 6 Sit to Stand (QC): 6 Chair/Lyg-ts-Pnblm Xfer(QC): 6 Toilet Transfer (QC): 6 Car Transfer (QC): 6 Does the Patient Walk: Yes Walk 10 feet (QC): 6 Walk 50ft with 2 Turns (QC): 6 Walk 150 ft (QC): 6 Walking 10ft on Uneven Surface: 6 1 Step (curb) (QC): 9 4 Steps (QC): 9 12 Steps (QC): 9 Picking up an Object (QC): 5 Does the Pt use WC or Scooter?: No Type: N/A Type: N/A PT Plan Treatment/Plan Treatment Plan: Continue Plan of Care Treatment Plan: Bed Mobility, Education, Functional Activity Thad, Functional Strength, Gait, Safety, Therapeutic Exercise, Transfers Treatment Duration: May 24, 2019 Frequency: 11 times per week Estimated Hrs Per Day: .5 hour per day Patient and/or Family Agrees t: Yes Time/GCodes Time In: 1125 Time Out: 1139 Total Billed Treatment Time: 14 Total Billed Treatment 1 visit FA 14 min KANWAL DAVID PT May 20, 2019 11:49 POS
[2019-05-20 12:00] VITALS: BP 89/46
[2019-05-20 16:00] VITALS: BP 109/53
--- NOTE | 2019-05-20 16:17 | D/C HH Face to Face Order ---
D/C Face to Face Orders Reconcile Patient Problems Problems Reviewed?: Yes Instructions for Patient [facility] [employer], Patient Instructions/FollowUp: follow up in clinic in 2 weeks dont bend lift twist push pull keep incisions clean and dry MAY RESUME ASPIRIN ON 05/24/2019 Physician to follow Patient: Courtney Gomez [facility], Dr Gomez [facility] 4 States Discharge Diet for Home: No Restrictions Goals for Patient: ambulation Patient Data-Allergies,Ht & Wt Patient Allergies: Coded Allergies: No Known Drug Allergies (Unverified , 10/12/09) Height (Feet): 5 Height (Inches): 5.00 Weight (Pounds): 155 Weight (Ounces): 0.0 Home Health Need/Face to Face Date of Face to Face: May 20, 2019 Clinical Findings: Generalized weakness and fatigue, Muscle weakness, Pain with ambulation, Unsteady gait I have seen Pt xntw-hc-bxpa: Yes Discharged To: Home Diagnosis/Conditions: lumbar stensosis with radiculopathy s/p lumbar fusion Patient is Homebound due to: Darren fall risk due to instabilty, Muscle weakness, Pain w/ambulation Homebound Status Due to the above stated illness, injury or surgical procedure (medical condition or diagnosis) and associated clinical findings, the patient is homebound because of his/her inability to leave home except with aid of a supportive device and/or person AND leaving the home requires a considerable and taxing effort or is medically contraindicated. Pt req the following assistanc: Walker Home Health Nursing Orders Home Health Services Order: Nursing Services, Physical Therapy-Evaluate & Treat Home Health Infusion Therapy Line Start Date: May 19, 2019 Therapy Orders Therapy Orders: Physical Therapy Therapy Specific Orders: Gait training, Increase strength/endurance nursing to evaluate and change dressings q 72 hours prn Certify Stmt I certify that this patient is under my care and that I, a nurse practitioner or a physician; a customer care assistant working with me, had a face to face encounter that - meets the physician face to face encounter requirements with this patient as dated. LIZETH DALY May 20, 2019 16:17 POS
--- NOTE | 2019-05-20 16:20 | Progress Note ---
Subjective Date Seen by a Provider: May 20, 2019 Time Seen by a Provider: 16:18 Subjective/Events-last exam POD #1 s/p L3-4 dlif, laminectomy, psif. c/o back pain and left hip/leg pain that is likely approach related. Reports + flatus, denies n/v, cp, sob. Review of Systems General: No Chills, No Night Sweats Pulmonary: No Dyspnea Cardiovascular: No: Chest Pain Gastrointestinal: No: Nausea, Vomiting Musculoskeletal: back pain, leg pain Neurological: No: Weakness, Numbness, Change in speech Objective Exam Vital Signs Date Time Temp Pulse Resp B/P (MAP) Pulse Ox O2 Delivery O2 Flow Rate FiO2 05/20/19 12:00 37.3 94 16 89/46 (60) 96 Room Air 05/20/19 10:20 95 Room Air 05/20/19 08:00 96 Room Air 05/20/19 08:00 37.2 71 18 97/49 (65) 94 Room Air 05/20/19 04:20 36.8 78 18 112/53 (72) 96 Room Air 05/20/19 00:05 37.1 68 19 89/51 (64) 94 Room Air 05/19/19 20:45 37.3 71 20 122/60 (80) 96 Room Air 05/19/19 20:10 95 Room Air 05/19/19 16:45 36.6 68 20 121/56 (77) 94 Room Air 05/19/19 16:36 Room Air I & O 05/20/19 07:00 Intake Total 5170 ml Output Total 3280 ml Balance 1890 ml Capillary Refill : General Appearance: No Apparent Distress Respiratory: No Accessory Muscle Use, No Respiratory Distress Gastrointestinal: non tender, soft Extremity: Non Tender, No Calf Tenderness Neurologic/Psychiatric: Alert, Oriented x3, No Motor/Sensory Deficits Results Lab Laboratory Tests 05/20/19 04:11: White Blood Count 7.5, Red Blood Count 4.25L, Hemoglobin 12.3, Hematocrit 38, Mean Corpuscular Volume 90, Mean Corpuscular Hemoglobin 29, Mean Corpuscular Hemoglobin Concent 32, Red Cell Distribution Width 14.5, Platelet Count 175, Mean Platelet Volume 10.8H, Sodium Level 141, Potassium Level 3.7, Chloride Level 108H, Carbon Dioxide Level 24, Anion Gap 9, Blood Urea Nitrogen 6L, Creatinine 0.78, Estimat Glomerular Filtration Rate > 60, BUN/Creatinine Ratio 8, Glucose Level 99, Calcium Level 8.0L, Corrected Calcium 8.6, Total Bilirubin 0.2, Aspartate Amino Transf (AST/SGOT) 220H, Alanine Aminotransferase (ALT/SGPT) 278H, Alkaline Phosphatase 152H, Total Protein 5.2L, Albumin 3.2 Assessment/Plan Assessment/Plan Assess & Plan/Chief Complaint s/p lumbar fusion plan back brace when oob scd for dvt prophylaxis pain control possible d/c tomorrow LIZETH DALY May 20, 2019 16:20 POS
[2019-05-20] MEDS ORDERED: WALK1EAC23 MC (16:23)
--- NOTE | 2019-05-20 16:23 | Anesthesia-General Post-Op ---
General Patient Condition Mental Status/LOC: Same as Preop Cardiovascular: Satisfactory Nausea/Vomiting: Absent Respiratory: Satisfactory Pain: Controlled Complications: Absent Post Op Complications Complications None Follow Up Care/Instructions Patient Instructions None needed. Anesthesia/Patient Condition Patient Condition Patient is doing well, C/O back pain which is to be expected, stable vital signs, no apparent adverse anesthesia problems. JUAN PABLO MONTELONGO DO May 20, 2019 16:23 POS
[2019-05-20] MEDS ORDERED: HYDR-4196 PO (16:25)
[2019-05-20 20:31] VITALS: BP 118/60
[2019-05-20] MEDS: MONTELUKAST 10 MG (SINGULAIR) TAB PO SCH (20:46)
[2019-05-20] MEDS: MELATONIN 3 MG TABLET PO SCH (20:47)
[2019-05-20] MEDS: LATANOPROST 0.005% (XALATAN) OPHTH SOLN 2.5 ML OU SCH (20:49)
[2019-05-21] MEDS: fentaNYL INJECTION 100 MCG/2 ML AMP IVP PRN (00:36)
[2019-05-21] MEDS: MULTIVIT W/MINERALS TAB (THERAGRAN M) PO SCH (06:45)
[2019-05-21] MEDS: buPROPion 100 MG (WELLBUTRIN) TAB PO SCH (09:05)
[2019-05-21] MEDS: PREGABALIN 100 MG (LYRICA) CAPSULE PO SCH ×2 (09:05→14:21)
[2019-05-21] MEDS: SUCRALFATE 1 GM (CARAFATE) TAB PO SCH ×2 (09:06→14:21)
[2019-05-21] MEDS: NICOTINE 21 MG (NICODERM) PATCH TD SCH (09:06)
[2019-05-21] MEDS: oxyCODONE/APAP 5/325MG (PERCOCET 5) TABLET PO PRN (09:06)
[2019-05-21] MEDS: FUROSEMIDE 20 MG (LASIX) TAB PO SCH (09:07)
[2019-05-21] MEDS: KCL 10 MEQ TAB (MICRO K) PO SCH (09:07)
[2019-05-21] MEDS: toPIRamate 100 MG (TOPAMAX) TAB PO SCH (09:07)
[2019-05-21] MEDS: FAMOTIDINE 20 MG (PEPCID) TABLET PO SCH (09:07)
[2019-05-21] MEDS: DIVALPROEX EXT RELEASE 500 MG (DEPAKOTE ER) TAB PO SCH (09:07)
[2019-05-21] MEDS: NICOTINE PATCH REMOVAL TP SCH (09:07)
[2019-05-21] MEDS: ISOSORBIDE MONONITRATE 30 MG (IMDUR) TAB PO SCH (09:07)
[2019-05-21] MEDS: PANTOPRAZOLE 40 MG (PROTONIX) TAB PO SCH (09:07)
--- NOTE | 2019-05-21 09:19 | Physical Therapy Daily Note ---
PT Daily Note-Current Subjective Pt agreeable to PT session, although stating she is not feeling well at all today, not sure why, states having a little bit of a hard time breathing. Respiratory to come in after PT session to give her inhalers. Pt requesting and received pain med at beginning of session. Pt insistent that she is going home today and will do fine since she will have 24 hour help. Pain Numeric Pain Scale: 4 Comment: "my back at my surgery site and my side" Appearance Pt sitting up in chair upon arrival. At end of session, pt sitting up in chair with call light, phone and bedside table within reach. Visitor in room thr oughout tx session and states she will be at home with pt to help her with everything. Mental Status Patient Orientation: Person, Place, Time, Eyes Open, Situation Attachments: Drains back support brace Transfers SCALE: Activities may be completed with or without assistive devices. 6-Kapzbprsrx-mbqnqsq completes the activity by him/herself with no assistance from a helper. 5-Set-up or Clean-up Assistance-helper sets up or cleans up; patient completes activity. [place] assists only prior to or following the activity. 4-Supervision or Touching Assistance-helper provides verbal cues and/or touching/steadying and/or contact guard assistance as patient completes activit y. Assistance may be provided throughout the activity or intermittently. 3-Partial/Moderate Assistance-helper does LESS THAN HALF the effort. [place] lifts, holds or supports trunk or limbs, but provides less than half the effort. 2-Substantial/Maximal Assistance-helper does MORE THAN HALF the effort. [place] lifts or holds trunk or limbs and provides more than half the effort. 5-Ybpcljnwx-tlowsd does ALL the effort. Patient does none of the effort to complete the activity. Or, the assistance of 2 or more helpers is required for the patient to complete the activity. If activity was not attempted, code reason: 7-Patient Refused. 9-Not Applicable-not attempted and the patient did not perform the activity before the current illness, exacerbation or injury. 10-Not Attempted due to Environmental Limitations-(lack of equipment, weather restraints, etc.). 88-Not Attempted due to Medical Conditions or Safety Concerns. Sit to Stand (QC): 4 (min skilled inst for hand placement and technique) Weight Bearing Right Lower Extremity: Right Full Weight Bearing Left Lower Extremity: Left Full Weight Bearing Gait Training Does the Patient Walk?: Yes Distance: 200 Walk 10 feet (QC): 5 Walk 50 ft with 2 Turns(QC): 5 Walk 150 ft (QC): 5 Gait Persons Needed: 1 Gait Assistive Device: FWW slow steady pace, no LOB or unsteadiness, occasional standing rest breaks, guarded posture Treatments education, safety, transfers, gait, strength, balance, activity tolerance, functional mobility, CG teaching Assessment not feeling well today, insistent upon going home today, slow steady gait without LOB or unsteadiness 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 Goals PT Longterm Goals Time Frame: May 24, 2019 Roll Left & Right (QC): 6 Sit to Lying (QC): 6 Lying-Sitting on Side/Bed(QC): 6 Sit to Stand (QC): 6 Chair/Ipx-ud-Vgkcn Xfer(QC): 6 Toilet Transfer (QC): 6 Car Transfer (QC): 6 Does the Patient Walk: Yes Walk 10 feet (QC): 6 Walk 50ft with 2 Turns (QC): 6 Walk 150 ft (QC): 6 Walking 10ft on Uneven Surface: 6 1 Step (curb) (QC): 9 4 Steps (QC): 9 12 Steps (QC): 9 Picking up an Object (QC): 5 Does the Pt use WC or Scooter?: No Type: N/A Type: N/A PT Plan Treatment/Plan Treatment Plan: Continue Plan of Care Treatment Plan: Bed Mobility, Education, Functional Activity Thad, Functional Strength, Gait, Safety, Therapeutic Exercise, Transfers Treatment Duration: May 24, 2019 Frequency: 11 times per week Estimated Hrs Per Day: .5 hour per day Patient and/or Family Agrees t: Yes Safety Risks/Education Patient Education: Gait Training, Transfer Techniques, Reviewed Precautions, Reviewed Use of Ice, Correct Positioning, Reviewed Don/Doff Brace, Safety Issues Teaching Recipient: Patient, Primary Caregiver Teaching Methods: Demonstration, Discussion Response to Teaching: Verbalize Understanding, Return Demonstration Time/GCodes Time In: 855 Time Out: 918 Total Billed Treatment Time: 23 Total Billed Treatment 1 visit, GT x13 min , FA x10 min ALEXIS HAN PTA May 21, 2019 09:19
[2019-05-21] MEDS: UMECLIDINIUM BROMIDE (INCRUSE ELLIPTA) 7'S IH SCH (09:45)
[2019-05-21] MEDS: RT-ALBUTEROL SULF 2.5 MG/3 ML PRE-MIX VIAL INH SCH (09:45)
[2019-05-21] MEDS: BREO ELLIPTA IH SCH (09:45)
--- NOTE | 2019-05-21 10:40 | NUR ---
CM/SS: Finalized discharged plan for pt Plan: Pt will be discharged today with home care services with [facility] in [place]. DME: Order given for front wheeled walker - pt does not qualify for front wheeled walker as she previously had a rollator walker - [facility] [employer] called back to clarify Summary: Pt ready to go home. Pt informed about not getting the front wheeled walker. She seemed ok with that. Pt eager to return home and wished well in her recovery.
--- NOTE | 2019-05-21 13:48 | Physical Therapy Progress Note ---
Therapy Progress Note Pt sitting up in recliner with visitor present. States she is waiting for her ride home, feels she does not need any more therapy today. States she understands that she should be up walking and exercising as she is able to tolerate. States she will be having HH services after returning home. Denies any other questions or concerns regarding PT. ALEXIS HAN MANUFACTURING OPERATIONS MANAGER May 21, 2019 13:48
[2019-05-21 15:22] VITALS: BP 118/60
--- NOTE | 2019-05-21 15:33 | NUR ---
CM/SS: Discharge Plan - Transportation Plan: Transportation arranged through [employer] - confirmation # [id number] Transportation to be here prior to 2:37pm. Transportation called back to say the pt would be picked up around 4:15pm. Pt and RN notified of the change of time for pickup.
== END 2019-05-21 15:35 | disposition home health service (06) | DRG 460 ==
LOC: 4TH 06:37 → SURG 06:38 → 4TH 11:00
PROVIDERS: ADMIT Orthopaedic Surgery; ATTEND Orthopaedic Surgery
PROC: 0ST20ZZ Resection of Lumbar Vertebral Disc, Open Approach (ICD-10-PCS; 2019-05-19)
PROC: 01NB0ZZ Release Lumbar Nerve, Open Approach (ICD-10-PCS; 2019-05-19)
PROC: 0SG00AJ Fusion of Lumbar Vertebral Joint with Interbody Fusion Device, Posterior Approach, Anterior Column, Open Approach (ICD-10-PCS; principal; 2019-05-19 07:32)
DX: M48.061 Spinal stenosis, lumbar region without neurogenic claudication (principal); M54.16 Radiculopathy, lumbar region; M43.16 Spondylolisthesis, lumbar region; M41.9 Scoliosis, unspecified
CPT/HCPCS: 36415; 72100; 80053; 85027; 86850; 86900; 86901; 94640; 94664; 94760

== ENCOUNTER → 2019-12-03 | Outpatient (CLI) | payer MEDICARE, MEDICAID ==
[~2019-12-03] MED LIST changes: +FLUT15.845 NSEACH; -FLUT15.88 NSEACH; +HOLD METFORMIN - RECEIVED CONTRAST 20 ML VIAL IV SCH; -HYDR-3812 PO; +HYDR-4196 PO; +IOHEXOL 350 MG/ML 100 ML (OMNIPAQUE 350) VIAL IV ONE; -MONT10TA24 PO; +MONT10TA26 PO; +NS 100 ML (IVPB) BAG IV ONE; -TRAM50TA2 PO; +WALK1EAC23 MC
[2019-12-03 09:27] LABS: GFR ESTIMATED > 60
[2019-12-03 09:28] LABS: BUN/CREATININE RATIO 16
--- NOTE | 2019-12-03 11:34 | Diagnostic Imaging Report ---
PROCEDURE: CT chest with contrast only. TECHNIQUE: Multiple contiguous axial images were obtained through the chest after administration of intravenous contrast. Auto Exposure Controls were utilized during the CT exam to meet ALARA standards for radiation dose reduction. INDICATION: Shortness of breath. The study compared with noncontrasted CT screening chest 02/21/2019. FINDINGS: Previous exam showed a 4 mm micronodule in the right upper lobe which today is barely perceptible and measuring smaller at 2.6 mm image 21 series 301 confirming benignity. Changes of centrilobular emphysema has background findings stable and chronic. No new or suspicious lung mass. No findings of edema or acute pneumonia. No lymphadenopathy. The aorta is patent and nonaneurysmal. There is no demonstrated central pulmonary arterial filling defect. No pleural or pericardial effusion. The visualized upper abdomen nonacute. IMPRESSION: Tiny benign micronodule right upper lobe smaller than on prior. No new or suspicious finding. Background COPD chronic. No evidence for pneumonia or other acute pathology. Dictated by: Dictated on workstation # [id number]
== END ==
LOC: RAD 08:45
PROVIDERS: ATTEND Nurse Practitioner Family
DX: J30.9 Allergic rhinitis, unspecified (principal); R91.8 Other nonspecific abnormal finding of lung field
CPT/HCPCS: 36415; 71260; 82565; 84520

== ENCOUNTER 2020-02-23 09:42 | Emergency (ER) | payer MEDICARE, MEDICAID ==
[~2020-02-23] VITALS: Ht 152 cm; Wt 55.0 kg
[~2020-02-23 09:42] MED LIST changes: +ASPI-1238 PO; -ASPI-983 PO; -HOLD METFORMIN - RECEIVED CONTRAST 20 ML VIAL IV SCH; -IOHEXOL 350 MG/ML 100 ML (OMNIPAQUE 350) VIAL IV ONE; -NS 100 ML (IVPB) BAG IV ONE
[2020-02-23] MEDS ORDERED: NS IV 1000 ML 1,000 ML IV SCH (10:00)
[2020-02-23 10:20] LABS: BILIRUBIN,URINE NEGATIVE (NEGATIVE); CLARITY,URINE CLEAR; COLOR,URINE YELLOW; GLUCOSE, URINE (UA) NEGATIVE (NEGATIVE); KETONES,URINE NEGATIVE (NEGATIVE); LEUKOCYTE ESTERASE ,URINE NEGATIVE (NEGATIVE); NITRITE,URINE NEGATIVE (NEGATIVE); PH,URINE 6.5 (5-9); PROTEIN,URINE NEGATIVE (NEGATIVE)
[2020-02-23 10:21] LABS: BACTERIA,URINE NEGATIVE /HPF; RBC,URINE 0-2 /HPF; WBC,URINE 0-2 /HPF
[2020-02-23 10:26] LABS: INR 0.9 (0.8-1.4); PROTHROMBIN TIME PATIENT 12.9 SEC (12.2-14.7)
[2020-02-23 10:29] LABS: BASOPHILS % (AUTO) 0 % (0-10); EOSINOPHILS % (AUTO) 0 % (0-10); HEMATOCRIT 43 % (35-52); HEMOGLOBIN 13.9 G/DL (11.5-16.0); LYMPHOCYTES % (AUTO) 38 % (12-44); MEAN CORPUSCULAR HEMOGLOBIN 29 PG (25-34); MEAN CORPUSCULAR HGB CONC 32 G/DL (32-36); MEAN CORPUSCULAR VOLUME 90 FL (80-99); MONOCYTES % (AUTO) 9 % (0-12); NEUTROPHILS % (AUTO) 53 % (42-75); PLATELET COUNT 219 10^3/uL (130-400); WHITE BLOOD COUNT 8.7 10^3/uL (4.3-11.0)
[2020-02-23 10:30] LABS: LYMPHOCYTES # (AUTO) 3.3 X 10^3 (1.0-4.0); MONOCYTES # (AUTO) 0.7 X 10^3 (0.0-1.0); NEUTROPHILS # (AUTO) 4.6 X 10^3 (1.8-7.8)
[2020-02-23 10:44] LABS: BUN/CREATININE RATIO 8; CARBON DIOXIDE 28 MMOL/L (21-32); CHLORIDE 101 MMOL/L (98-107); CREATININE SERUM 0.84 MG/DL (0.60-1.30); GFR ESTIMATED > 60; GLUCOSE 102 MG/DL (70-105); SODIUM 140 MMOL/L (135-145)
[2020-02-23 10:45] LABS: ALANINE AMINOTRANSFERASE 7 U/L (0-55); ALBUMIN 3.8 GM/DL (3.2-4.5); ALKALINE PHOSPHATASE 55 U/L (40-136); BILIRUBIN,TOTAL 0.3 MG/DL (0.1-1.0); CALCIUM 8.6 MG/DL (8.5-10.1); LIPASE 26 U/L (8-78); MAGNESIUM 2.1 MG/DL (1.6-2.4); TOTAL PROTEIN 6.1 GM/DL (6.4-8.2)
--- NOTE | 2020-02-23 10:49 | Diagnostic Imaging Report ---
INDICATION: WEAKNESS COMPARISON: 07/07/2014. FINDINGS: Single frontal view of the chest demonstrates normal heart size and pulmonary vascularity. The lungs are well aerated and clear. No large pleural effusion or pneumothorax is seen. The visualized osseous structures show no acute abnormalities. IMPRESSION: 1. No acute cardiopulmonary process. Dictated by: Dictated on workstation # [id number]
--- NOTE | 2020-02-23 10:51 | Diagnostic Imaging Report ---
PROCEDURE: CT head without contrast. TECHNIQUE: Multiple contiguous axial images were obtained through the brain without the use of intravenous contrast. Auto Exposure Controls were utilized during the CT exam to meet ALARA standards for radiation dose reduction. INDICATION: Weakness. Comparison is made with prior head CT from 02/20/2013. FINDINGS: The ventricles and sulci are within normal limits. No sulcal effacement or midline shift is identified. No acute intra-axial or extra-axial hemorrhage is detected. Cisterns are patent. Visualized paranasal sinuses are clear. IMPRESSION: No acute intracranial process is identified. Dictated by: Dictated on workstation # [id number]
--- NOTE | 2020-02-23 10:54 | ED General ---
General Chief Complaint: General Problems/Pain Stated Complaint: GENERAL WEAKNESS Nursing Triage Note: PT REPORTS SHE STARTED HAVING SOME WEAKNESS AND DIFFICULTY WALKING. SHE ALSO REPORTS DIFFICULTY URINATING. Nursing Sepsis Screen: No Definite Risk History of Present Illness Date Seen by Provider: Feb 23, 2020 Time Seen by Provider: 10:54 Initial Comments Patient presenting to emergency department for evaluation of multiple complaints including generalized weakness more frequent falls tremors shaking and dysuria. All the symptoms have been going on for approximately one to 2 weeks and she has arranged follow-up with her primary care provider and neurologist in [place] but all her appointments are not until March. She says she always has trouble walking and ambulates with a walker but she feels that her legs are weaker and more shaky and she has more difficulty ambulating. She denies any pain at all including no head neck chest abdomen back or other externally pain rather she just says she has painful urination. She denies any fevers chills nausea vomiting or other systemic symptoms. She has a very long medication list and says it has not changed recently. She has an obvious essential tremor but no resting tremor. She says every once in a while she feels electric jolts in her extremities and she has spasm-type movements. Allergies and Home Medications Allergies Coded Allergies: No Known Drug Allergies (Unverified , 10/12/09) Home Medications Albuterol Sulfate 1 Puff Puff, 2 PUFF IH Q4H PRN for WHEEZING, (Reported) 1 PUFF = 90 MCG Albuterol Sulfate 2.5 Mg/3 Ml Vial.neb, 2.5 MG NEB DAILY, (Reported) Alendronate Sodium 70 Mg Tablet, 70 MG PO Mo, (Reported) Aspirin 81 Mg Tablet.dr, 81 MG PO DAILY, (Reported) Atorvastatin Calcium 20 Mg Tablet, 20 MG PO HS, (Reported) Bupropion HCl 100 Mg Tablet, 100 MG PO DAILY, (Reported) Divalproex Sodium 500 Mg Tab.er.24h, 500 MG PO DAILY, (Reported) Escitalopram Oxalate 20 Mg Tablet, 30 MG PO HS, (Reported) TAKES 1 & 1/2 (20MG) TABLET Esomeprazole Magnesium 40 Mg Capsule.dr, 40 MG PO DAILY, (Reported) Fluticasone Propionate 15.8 Ml [place].susp, 2 SPRAYS NSEACH DAILY PRN for CONGESTION, (Reported) Fluticasone/Vilanterol 1 Each Blst.w.dev, 1 PUFF IH DAILY, (Reported) Furosemide 20 Mg Tablet, 20 MG PO DAILY, (Reported) LAST FILLED #90 01-29-19 Hydrocodone/Acetaminophen 1 Each Tablet, 1 TAB PO Q4H PRN for PAIN-MODERATE Prescribed by: LIZETH DALY on 05/20/19 0935 Icosapent Ethyl 1 Gm Capsule, 1 GM PO BID, (Reported) Isosorbide Mononitrate 30 Mg Tab.er.24h, 30 MG PO DAILY, (Reported) Latanoprost 2.5 Ml Drops, 1 DROP OU HS, (Reported) Melatonin 5 Mg Capsule, 5 MG PO HS, (Reported) Montelukast Sodium 10 Mg Tablet, 10 MG PO HS, (Reported) Potassium Chloride 10 Meq Tablet.er, 10 MEQ PO DAILY, (Reported) Pregabalin 100 Mg Capsule, 100 MG PO TID, (Reported) LAST FILLED #84 02-19-19 Sucralfate 1 Gm Tablet, 1 GM PO TID, (Reported) Sumatriptan Succinate 50 Mg Tablet, 50 MG PO UD PRN for MIGRAINE, (Reported) Topiramate 100 Mg Tablet, 100 MG PO BID, (Reported) Tramadol HCl 50 Mg Tablet, 50 MG PO QID PRN for PAIN-MODERATE (5-7), (Reported) Umeclidinium [place] 62.5 Mcg Blst.w.dev, 1 PUFF IH DAILY, (Reported) Patient Home Medication List Home Medication List Reviewed: Yes Review of Systems Review of Systems Constitutional: no symptoms reported EENTM: no symptoms reported Respiratory: no symptoms reported Cardiovascular: no symptoms reported Gastrointestinal: no symptoms reported Genitourinary: dysuria Musculoskeletal: muscle twitching Skin: no symptoms reported Psychiatric/Neurological: Tremors All Other Systems Reviewed Negative Unless Noted: Yes Past Nizvvsl-Ekswox-Jqogxk Hx Patient Social History Alcohol Use: Denies Use Recreational Drug Use: No Smoking Status: Current Everyday Smoker Type Used: Cigarettes, Electronic/Vapor 2nd Hand Smoke Exposure: No Recent Foreign Travel: No Contact w/Someone Who Travel: No Recent Infectious Disease Expo: No Recent Hopitalizations: No Physical Abuse: No Sexual Abuse: No Mistreated: No Fear: No Immunizations Up To Date Date of Pneumonia Vaccine: Jul 14, 2013 Date of Influenza Vaccine: Feb 11, 2019 Seasonal Allergies Seasonal Allergies: No Past Medical History Surgeries: Yes (RIGHT KNEE SCOPE) Gallbladder, Hysterectomy, Oophorectomy Respiratory: Yes COPD, Emphysema Currently Using CPAP: No Currently Using BIPAP: No Cardiac: Yes Hypertension Neurological: Yes Headaches /Migraines 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 Disorders: No Female 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 Disorders: Denies HEALTH OUTCOMES LIAISON History: Hysterectomy Sexually Transmitted Disease: No HIV/AIDS: No Genitourinary: No Gastrointestinal: Yes (hx elevated liver ennzymes) Gastroesophageal Reflux, Ulcer Musculoskeletal: Yes Degenerate Disk Disease, Arthritis, Fibromyalgia, Chronic Back Pain Endocrine: No HEENT: Yes (glasses) Glaucoma Loss of Vision: Bilateral Hearing Impairment: Denies Cancer: No Psychosocial: Yes Anxiety, Depression Integumentary: No Blood Disorders: No Adverse Reaction/Blood Tranf: No Family Medical History Dementia 19 MOTHER Physical Exam Vital Signs Vital Signs - First Documented 02/23/20 09:45 Temp 36.8 Pulse 102 Resp 18 B/P (MAP) 113/91 (98) O2 Delivery Room Air Capillary Refill : Less Than 3 Seconds Height, Weight, BMI Height: 5'5.00" Weight: 155lbs. 0.0oz. 70.587322wl; 23.00 BMI Method: General Appearance: Chronically ill HEENT: PERRL/EOMI Neck: Supple Respiratory: No Respiratory Distress Cardiovascular: Regular Rate, Rhythm Gastrointestinal: Non Tender, Soft Back: Normal Inspection Extremity: Normal Capillary Refill, No Pedal Edema Neurologic/Psychiatric: Alert, Oriented x3, No Motor/Sensory Deficits, Other (essential tremor noted with intermittent muscle twitching of the extremities. 5 out of 5 strength in all extremities.) Skin: Warm/Dry Progress/Results/Core Measures Suspected Sepsis Recent Fever Within 48 Hours: No Infection Criteria Present: None New/Unexplained Altered Menta: No Sepsis Screen: No Definite Risk SIRS Temperature: Pulse: 102 Respiratory Rate: 18 Laboratory Tests 02/23/20 09:50: White Blood Count 8.7 Blood Pressure 113 /91 Mean: 98 Laboratory Tests 02/23/20 09:50: Creatinine 0.84, INR Comment 0.9, Platelet Count 219, Total Bilirubin 0.3 Results/Orders Lab Results Laboratory Tests Test 02/23/20 09:50 02/23/20 10:08 Range/Units White Blood Count 8.7 4.3-11.0 10^3/uL Red Blood Count 4.80 4.35-5.85 10^6/uL Hemoglobin 13.9 11.5-16.0 G/DL Hematocrit 43 35-52 % Mean Corpuscular Volume 90 80-99 FL Mean Corpuscular Hemoglobin 29 25-34 PG Mean Corpuscular Hemoglobin Concent 32 32-36 G/DL Red Cell Distribution Width 14.6 H 10.0-14.5 % Platelet Count 219 130-400 10^3/uL Mean Platelet Volume 10.0 7.4-10.4 FL Immature Granulocyte % (Auto) Neutrophils (%) (Auto) 53 42-75 % Lymphocytes (%) (Auto) 38 12-44 % Monocytes (%) (Auto) 9 0-12 % Eosinophils (%) (Auto) 0 0-10 % Basophils (%) (Auto) 0 0-10 % Neutrophils # (Auto) 4.6 1.8-7.8 X 10^3 Lymphocytes # (Auto) 3.3 1.0-4.0 X 10^3 Monocytes # (Auto) 0.7 0.0-1.0 X 10^3 Eosinophils # (Auto) 0.0 0.0-0.3 10^3/uL Basophils # (Auto) 0.0 0.0-0.1 10^3/uL Prothrombin Time 12.9 12.2-14.7 SEC INR Comment 0.9 0.8-1.4 Activated Partial Thromboplast Time 26 24-35 SEC Sodium Level 140 135-145 MMOL/L Potassium Level 4.0 3.6-5.0 MMOL/L Chloride Level 101 98-107 MMOL/L Carbon Dioxide Level 28 21-32 MMOL/L Anion Gap 11 5-14 MMOL/L Blood Urea Nitrogen 7 7-18 MG/DL Creatinine 0.84 0.60-1.30 MG/DL Estimat Glomerular Filtration Rate > 60 BUN/Creatinine Ratio 8 Glucose Level 102 70-105 MG/DL Calcium Level 8.6 8.5-10.1 MG/DL Corrected Calcium 8.8 8.5-10.1 MG/DL Magnesium Level 2.1 1.6-2.4 MG/DL Total Bilirubin 0.3 0.1-1.0 MG/DL Aspartate Amino Transf (AST/SGOT) 10 5-34 U/L Alanine Aminotransferase (ALT/SGPT) 7 0-55 U/L Alkaline Phosphatase 55 40-136 U/L Troponin I < 0.30 <0.30 NG/ML Pro-B-Type Natriuretic Peptide 92.5 H <75.0 PG/ML Total Protein 6.1 L 6.4-8.2 GM/DL Albumin 3.8 3.2-4.5 GM/DL Lipase 26 8-78 U/L Urine Color YELLOW Urine Clarity CLEAR Urine pH 6.5 5-9 Urine Specific [place] 1.010 L 1.016-1.022 Urine Protein NEGATIVE NEGATIVE Urine Glucose (UA) NEGATIVE NEGATIVE Urine Ketones NEGATIVE NEGATIVE Urine Nitrite NEGATIVE NEGATIVE Urine Bilirubin NEGATIVE NEGATIVE Urine Urobilinogen 0.2 < = 1.0 MG/DL Urine Leukocyte Esterase NEGATIVE NEGATIVE Urine RBC (Auto) NEGATIVE NEGATIVE Urine RBC 0-2 /HPF Urine WBC 0-2 /HPF Urine Squamous Epithelial Cells NONE /HPF Urine Crystals NONE /LPF Urine Bacteria NEGATIVE /HPF Urine Casts NONE /LPF Urine Mucus NEGATIVE /LPF Urine Culture Indicated NO My Orders Orders - AZALEA YADAV DO Ct Head Wo (02/23/20 09:59) Iv/Invasive Line Insertion .IV start (02/23/20 09:59) Cbc With Automated Diff (02/23/20 09:59) Comprehensive Metabolic Panel (02/23/20 09:59) Lipase (02/23/20 09:59) Magnesium (02/23/20 09:59) Partial Thromboplastin Time (02/23/20 09:59) Probnp Fs (02/23/20 09:59) Protime With Inr (02/23/20 09:59) Troponin I Fs (02/23/20 09:59) Ua Culture If Indicated (02/23/20 09:59) Ekg Tracing (02/23/20 09:59) Chest 1 View Ap/Pa Only (02/23/20 09:59) Ns Iv 1000 Ml (Sodium Chloride 0.9%) (02/23/20 10:00) Vital Signs/I&O 02/23/20 09:45 Temp 36.8 Pulse 102 Resp 18 B/P (MAP) 113/91 (98) O2 Delivery Room Air Capillary Refill : Less Than 3 Seconds Blood Pressure Mean: 98 Progress Note : Progress Note I did extensive workup in the emergency room and there is no signs of acute cardiopulmonary infectious or neurologic condition causing her symptoms. I told her I do not have an exact explanation why she is having only symptoms that I told her she does have an essential tremor and that may need to be treated and she may also need to have her medications adjusted as she could suffer side effects from a multitude of the medication she is on. I asked her if she is safe at home and she feels safe ambulating in her apartment and she says she does feel safe and would like to go home and does not want to be admitted or be placed. Given patient appears well with normal vital signs benign neurologic exam and benign workup she will be discharged in stable condition told to keep her follow-up appointments and that she can come back to the emergency department any time with worsening symptoms or concerns. Departure Impression Primary Impression: Benign essential tremor Additional Impressions: General weakness Dysuria Muscle twitching Disposition: 01 HOME, SELF-CARE Condition: Stable Departure-Patient Inst. Referrals: [facility] (PCP) Primary Care Physician ALEXANDRU ALVA APRN (Family) Primary Care Physician Patient Instructions: Essential Tremor AZALEA YADAV DO Feb 23, 2020 10:54
[2020-02-23 11:18] VITALS: BP 110/70
== END 2020-02-23 11:00 | disposition home or self-care (01) ==
LOC: EDUNIT# 09:42 → ER FS 09:43
DX: G25.0 Essential tremor (principal); R53.1 Weakness; R30.0 Dysuria; G89.29 Other chronic pain; M54.9 Dorsalgia, unspecified; J44.9 Chronic obstructive pulmonary disease, unspecified; F32.9 Major depressive disorder, single episode, unspecified; F41.9 Anxiety disorder, unspecified; I10 Essential (primary) hypertension; G43.909 Migraine, unspecified, not intractable, without status migrainosus; K21.9 Gastro-esophageal reflux disease without esophagitis; H40.9 Unspecified glaucoma; F17.210 Nicotine dependence, cigarettes, uncomplicated; Z79.82 Long term (current) use of aspirin; Z79.891 Long term (current) use of opiate analgesic
CPT/HCPCS: 36415; 70450; 71045; 80053; 81000; 83690; 83735; 83880; 84484; 85025; 85610; 85730

== ENCOUNTER 2020-10-05 08:00 | Day surgery (SDC) | payer MEDICARE, MEDICAID ==
[2020-10-05] VITALS (9 sets, daily range): BP systolic 103–140; BP diastolic 55–82
[~2020-10-05] VITALS: Ht 165 cm; Wt 63.0 kg
[2020-10-05 07:49] LABS: HEMOGLOBIN 13.4 g/dL (11.5-16.0); MEAN PLATELET VOLUME 10.5 fL (9.0-12.2); WHITE BLOOD COUNT 7.8 10^3/uL (4.3-11.0)
[2020-10-05 07:56] LABS: INR 0.9 (0.8-1.4); PROTHROMBIN TIME PATIENT 12.8 SEC (12.2-14.7)
[~2020-10-05 08:00] MED LIST changes: -ALEN70TA5 PO; +ALEN70TA80 PO; +ESCI20TA39 PO; -ESCI20TA45 PO; +HEParin (CATH LAB) 2,000 ML IV ONE; -ISOS30TA3 PO; +ISOS30TA82 PO; +LIDOCAINE 1% INJ 20 ML 20 ML VIAL ONE; -MONT10TA26 PO; +MONT10TA32 PO; +NS IV 1000 ML 1,000 ML IV SCH; +NS IV 1000 ML 1,000 ML ONE; -OMEG-105 PO; +OMEG-218 PO; -OXYC-471 PO; +OXYC1TAB11 PO
[2020-10-05 08:02] LABS: ALANINE AMINOTRANSFERASE 16 U/L (0-55); ALBUMIN 4.1 GM/DL (3.2-4.5); ALKALINE PHOSPHATASE 126 U/L (40-136); BILIRUBIN,TOTAL 0.3 MG/DL (0.1-1.0); BUN/CREATININE RATIO 7; CALCIUM 8.5 MG/DL (8.5-10.1); CARBON DIOXIDE 28 MMOL/L (21-32); CHLORIDE 103 MMOL/L (98-107); CHOLESTEROL 234 MG/DL (< 200); CREATININE SERUM 0.89 MG/DL (0.60-1.30); GFR ESTIMATED > 60; GLUCOSE 88 MG/DL (70-105); HDL CHOLESTEROL 59 MG/DL (40-60); POTASSIUM 3.1 MMOL/L (3.6-5.0); SODIUM 139 MMOL/L (135-145); TRIGLYCERIDES 141 MG/DL (<150); VLDL CHOLESTEROL 28 MG/DL (5-40)
[2020-10-05] MEDS ORDERED: FLUC150T2 PO (08:12)
[2020-10-05] MEDS ORDERED: FEXO-46 PO (08:12)
[2020-10-05] MEDS ORDERED: LORA-405 PO (08:12)
[2020-10-05] MEDS ORDERED: FURO20TA4 PO (08:12)
[2020-10-05] MEDS ORDERED: OMEP20TA7 PO (08:12)
[2020-10-05] MEDS ORDERED: PRIM250T33 PO (08:12)
[2020-10-05] MEDS ORDERED: NITR0.4T39 SL (08:12)
[2020-10-05] MEDS ORDERED: PREG100C55 PO (08:12)
[2020-10-05] MEDS ORDERED: MIDAZOLAM 5 MG/5 ML (VERSED) VIAL ONE (08:38)
[2020-10-05] MEDS ORDERED: fentaNYL INJ 100 MCG/2 ML AMP ONE (08:38)
--- NOTE | 2020-10-05 09:14 | Cardiac Procedure Note-CS/ASA ---
Pre-Procedure Note Pre-Op Procedure Note H&P Reviewed The H&P was reviewed, patient examined and no changes noted. Date H&P Reviewed: October 05, 2020 Time H&P Reviewed: 08:45 Conscious Sedation Pre-Proced Time 08:45 ASA Score 3 For ASA 3 and 4: Consider anesthesia and medical clearance. Also, for patients with a history of failed moderate sedation consider anesthesia. Airway Lungs Heart ASA score ASA 1: a normal healthy patient ASA 2: a patient with a mild systemic disease (mid diabetes, controlled hypertension, obesity ASA 3: a patient with a severe systemic disease that limits activity (angina, COPD, prior Myocardial infarction) ASA 4: a patient with an incapacitating disease that is a constant threat to life (CHF, renal failure) ASA 5: a moribund patient not expected to survive 24 hrs. (ruptured aneurysm) ASA 6: a declared brain- patient whose organs are being harvested. For emergent operations, add the letter E after the classification Mallampati Classification Grade 2 Sedation Plan Analgesia, Amnesia, Plan communicated to team members, Discussed options with patient/fam, Discussed risks with patient/fam The patient is an appropriate candidate to undergo the planned procedure, sedation, and anesthesia. The patient immediately re-assessed prior to indication. REID CARDENAS MD FACP FAC CCDS October 05, 2020 09:14
[2020-10-05] MEDS ORDERED: PATIENT MAY USE OWN MEDS, ALL PO SCH (09:15)
[2020-10-05] MEDS ORDERED: NS IV 1000 ML 1,000 ML IV SCH (09:15)
--- NOTE | 2020-10-05 09:16 | Discharge Inst-Cardiology ---
Discharge Inst-Cardiac Discharge Medications Continued Medications: Albuterol Sulfate (Ventolin Hfa) 1 Puff Puff 2 PUFF IH Q4H PRN for WHEEZING, INHALER 1 PUFF = 90 MCG Albuterol Sulfate (Albuterol Sulfate) 2.5 Mg/3 Ml Vial.neb 2.5 MG NEB PRN PRN for WHEEZING, EA Alendronate Sodium (Alendronate Sodium) 70 Mg Tablet 70 MG PO Mo, TAB Aspirin (Aspirin EC) 81 Mg Tablet.dr 81 MG PO DAILY, TAB Atorvastatin Calcium (Atorvastatin Calcium) 20 Mg Tablet 20 MG PO HS, TAB Bupropion HCl (Bupropion HCl) 100 Mg Tablet 100 MG PO DAILY, TAB Escitalopram Oxalate (Escitalopram Oxalate) 20 Mg Tablet 30 MG PO HS, TAB TAKES 1 & 1/2 (20MG) TABLET Fexofenadine HCl (Fexofenadine HCl) 180 Mg Tablet 180 MG PO DAILY, TAB Fluconazole (Fluconazole) 150 Mg Tablet 150 MG PO DAILY, TAB Fluticasone Propionate (Fluticasone Propionate) 15.8 Ml [place].susp 2 SPRAYS NSEACH DAILY PRN for CONGESTION, SPRAY Fluticasone/Vilanterol (Breo Ellipta 100-25 Mcg INH) 1 Each Blst.w.dev 1 PUFF IH DAILY, INHALER Furosemide (Furosemide) 20 Mg Tablet 20 MG PO DAILY, TAB Icosapent Ethyl (Vascepa) 1 Gm Capsule 2 GM PO BID, CAP Isosorbide Mononitrate (Isosorbide Mononitrate ER) 30 Mg Tab.er.24h 30 MG PO DAILY, TAB Latanoprost (Latanoprost) 2.5 Ml Drops 1 DROP OU HS, DROPS Lorazepam (Ativan) 1 Mg Tablet 0.5 MG PO DAILY for 7 Days, TAB Montelukast Sodium (Montelukast Sodium) 10 Mg Tablet 10 MG PO HS, TAB Nitroglycerin (Nitroglycerin) 0.4 Mg Tab.subl 0.4 MG SL UD PRN for CHEST PAIN, TAB Omeprazole (Omeprazole) 20 Mg Tablet.dr 20 MG PO DAILY, TAB Potassium Chloride (Potassium Chloride) 10 Meq Tablet.er 10 MEQ PO DAILY, TAB Pregabalin (Pregabalin) 100 Mg Capsule 100 MG PO DAILY, CAP Primidone (Mysoline) 250 Mg Tablet 250 MG PO BID, TAB Sucralfate (Sucralfate) 1 Gm Tablet 1 GM PO BID, TAB Sumatriptan Succinate (Sumatriptan Succinate) 50 Mg Tablet 50 MG PO UD PRN for MIGRAINE, TAB Topiramate (Topiramate) 100 Mg Tablet 100 MG PO BID, TAB Tramadol HCl (Tramadol HCl) 50 Mg Tablet 50 MG PO TID Umeclidinium [place] (Incruse Ellipta) 62.5 Mcg Blst.w.dev 1 PUFF IH DAILY, INHALER REID CARDENAS MD FACP FAC CCDS October 05, 2020 09:16
--- NOTE | 2020-10-05 09:17 | Discharge Inst-Post CATH ---
Discharge Inst-CATH/EP Post Cardiac Cath/EP D/C Inst Follow Up/Plan F/u with Dr Looney in 2 weeks ACTIVITY * Go Home directly and rest. * Limit activity of the leg (or wrist if it was used) for 7 days including aerobics, swimming, jogging, bicycling, etc. * Restrict stair-climbing for 7 days if possible, if not, climb up with your n on-cath leg, then bring together on the same step. * Avoid lifting, pushing, pulling or excessive movement of the affected ex tremity for 7 days. * Customary sexual activity may be resumed after 2 days-use caution not to use a position that strains or causes pain to the affected extremity. * No driving for 24 hours. * NO SMOKING. * Avoid straining for bowel movements for 7 days. * Gentle walking on level ground is allowed. * Returning to work will depend on the type of procedure and the results. Your doctor will discuss this with you. CALL YOUR DOCTOR FOR ANY OF THE FOLLOWING: *If bleeding from the puncture site occurs- Apply gentle pressure to site with clean cloth and call your doctor or EMS. * If a knot or lump forms under the skin, increases in size, or causes pain. * If bruising appears to be worsening or moving further down your leg instead of disappearing. * Temperature above 101 F. CARE OF YOUR GROIN INCISION; * Bruising or purple discoloration of the skin near the puncture site is common. * You may shower only, no bathtub bathing for 5 days. Be careful to avoid slipping as your leg may feel stiff. * If a closure device was used on your femoral artery, please see the attached guide regarding care of the device and your leg. * Leave dressing on FOR 24 hours. CARE OF YOUR WRIST INCISION; * Bruising or purple discoloration of the skin near the puncture site is common. * You may shower. * DO NOT submerge wrist. * Leave dressing on FOR 24 hours. REID LOONEY MD FACP FAC CCDS October 05, 2020 09:17
--- NOTE | 2020-10-05 11:42 | CARDIAC CATHETERIZATION ---
DATE OF SERVICE: 10/05/2020 CARDIAC CATHETERIZATION REPORT INDICATION FOR PROCEDURE: The patient is a 60-year-old lady, who has multiple coronary artery disease risk factors, whose last cardiac catheterization about seven years ago, had shown mild coronary plaques. She has been experiencing increasing shortness of breath and the features are consistent with angina pectoris. Accordingly, cardiac catheterization was carried out after having obtained an informed consent. DESCRIPTION OF PROCEDURE: She was brought to the cardiac catheterization laboratory in a fasting state. Right groin was prepared and draped in the usual sterile fashion. Lidocaine 1% was used for local anesthesia. Modified Seldinger technique was used to advance a 5-Gambian sheath into the right femoral artery. A 5-Gambian JL4 catheter was used for left coronary angiography, 5-Gambian JR4 catheter was used for left heart catheterization and left ventricular angiography and then pulled back and used for angiography of the right coronary artery. The catheter was removed. Angiography of the right femoral artery was carried out through the sheath. Mynx was used to achieve hemostasis. She tolerated the procedure well. HEMODYNAMICS: Left ventricular end-diastolic pressure following coronary angiography was 14 mmHg. There was no significant pressure gradient on pullback across the aortic valve. CORONARY ANGIOGRAPHY: Coronary calcification is seen. There is mild coronary plaque involving the left coronary system. There is up to 40% stenosis in a dominant right coronary. There does not appear to be significant obstructive disease. LEFT VENTRICULAR ANGIOGRAPHY: Left ventricular angiography was carried out in the right anterior oblique projection. Global left ventricular systolic function is normal. No regional wall motion abnormality is seen. Left ventricular ejection fraction is estimated to be 60% to 65%. CONCLUSIONS: 1. Mild to moderate coronary artery disease, nonobstructive. 2. Normal global left ventricular systolic function with an ejection fraction of 65%. 3. Left ventricular end-diastolic pressure is 14 mmHg. DISCUSSION AND RECOMMENDATIONS: Based on this study, chest discomfort does not appear to be of coronary origin. Continuing risk factor modification is advised and outpatient followup is advised. Job ID: [id number] DocumentID: [id number] Dictated Date: 10/05/2020 09:21:25 Instructional Design Consultant Date: 10/05/2020 11:42:05 Dictated By: REID CARDENAS MD, MA, FACP, FACC,
[2020-10-05] MEDS ORDERED: APIXABAN 5 MG (ELIQUIS) TABLET PO SCH (21:00)
== END 2020-10-05 13:15 | disposition home or self-care (01) ==
LOC: CATH 08:00 → SDC 09:28 → CATH 13:15
PROVIDERS: ATTEND Internal Medicine Cardiovascular Disease
DX: R07.89 Other chest pain (principal); I25.118 Atherosclerotic heart disease of native coronary artery with other forms of angina pectoris; I65.29 Occlusion and stenosis of unspecified carotid artery; I77.9 Disorder of arteries and arterioles, unspecified; I34.0 Nonrheumatic mitral (valve) insufficiency; J44.9 Chronic obstructive pulmonary disease, unspecified; G47.10 Hypersomnia, unspecified; M19.90 Unspecified osteoarthritis, unspecified site; E78.5 Hyperlipidemia, unspecified; E78.2 Mixed hyperlipidemia; F41.9 Anxiety disorder, unspecified; F32.9 Major depressive disorder, single episode, unspecified; F17.290 Nicotine dependence, other tobacco product, uncomplicated; Z90.710 Acquired absence of both cervix and uterus; Z79.899 Other long term (current) drug therapy; Z79.82 Long term (current) use of aspirin; Z79.891 Long term (current) use of opiate analgesic; Z80.9 Family history of malignant neoplasm, unspecified; Z82.49 Family history of ischemic heart disease and other diseases of the circulatory system
CPT/HCPCS: 80053; 80061; 85027; 85610; 85730; 87081; 93005; 93225; 93226; 93458; C1760; C1894; 36415; 36430

== ENCOUNTER → 2020-12-14 | Outpatient (CLI) | payer MEDICARE, MEDICAID ==
[~2020-12-14] MED LIST changes: +FEXO-46 PO; +FLUC150T2 PO; -HEParin (CATH LAB) 2,000 ML IV ONE; -LIDOCAINE 1% INJ 20 ML 20 ML VIAL ONE; +LORA-405 PO; +NITR0.4T39 SL; -NS IV 1000 ML 1,000 ML IV SCH; -NS IV 1000 ML 1,000 ML ONE; +OMEP20TA7 PO; +PREG100C55 PO; +PRIM250T33 PO
--- NOTE | 2020-12-14 10:21 | Diagnostic Imaging Report ---
EXAMINATION: CT chest without contrast (lung screening). TECHNIQUE: Multiple contiguous axial images were obtained through the chest without the use of intravenous contrast according to lung cancer screening protocol. All CT scans use one or more of the following dose optimizing techniques: automated exposure control, MA and/or KvP adjustment based on patient size and exam type or iterative reconstruction. HISTORY: [id number] history of smoking. COMPARISON: 02/21/2019. FINDINGS: There is no edema or pneumonia. No pleural effusion. No pneumothorax. No suspicious nodules. There is a stable 3 mm right upper lobe pulmonary nodule. Lungs are severely emphysematous. There is no axillary or supraclavicular lymphadenopathy. There is no mediastinal lymphadenopathy. Heart size is normal. There are mild coronary artery calcifications. No pericardial effusion. Aorta is normal in caliber. Limited views of the upper abdomen show changes of cholecystectomy. There are no suspicious osseous lesions. There is a healed displaced sternal fracture. IMPRESSION: 1. No suspicious pulmonary nodules. LUNG-RADS CATEGORY: 2 MODIFIER: None. Dictated by: Dictated on workstation # [id number]
== END ==
LOC: RAD 10:15
PROVIDERS: ATTEND Nurse Practitioner Family
DX: Z12.2 Encounter for screening for malignant neoplasm of respiratory organs (principal); F17.210 Nicotine dependence, cigarettes, uncomplicated
CPT/HCPCS: 71271

== ENCOUNTER 2021-02-02 11:24 | Outpatient (CLI) | payer MEDICARE, MEDICAID ==
[~2021-02-02] VITALS: Ht 165 cm; Wt 61.4 kg
[2021-02-03] MEDS ORDERED: APIX5TAB PO (09:52)
[2021-02-04] MEDS ORDERED: NITR-65 PO (10:35)
== END 2021-02-03 10:50 ==
LOC: PREOP 11:24
PROVIDERS: ATTEND Internal Medicine
DX: Z01.818 Encounter for other preprocedural examination (principal)

== ENCOUNTER 2021-02-04 09:43 | Day surgery (SDC) | payer MEDICARE, MEDICAID ==
--- NOTE | 2021-02-02 16:52 | HISTORY AND PHYSICAL ---
DATE OF SERVICE: EGD HISTORY AND PHYSICAL HISTORY OF PRESENT ILLNESS: The patient is a 60-year-old white female referred by Dr. Mcnamara for EGD evaluation. She reports that she has had reflux symptoms for several years, but over the past 2 months, it has gotten worse with significant dysphagia to solids and at times liquids and significant pain for which she points to the mid esophagus area. She has had associated weight loss with this, she believes 6 pounds in the last month. She denies melena or bright red blood per rectum. She reports stable cough. Denies choking. 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 She also has a history of osteoporosis and has been on 70 mg of Fosamax weekly for the past several years. She has a history of hypertension and for reflux, has been taking omeprazole 40 mg daily for quite some time and Carafate 1 gram twice a day. She has a history of depression. For her COPD, she takes Singulair 10 mg daily and Incruse inhaler and Breo inhalers once daily. SOCIAL HISTORY: She is a 50+ pack year smoking history, currently smoking about half a pack of cigarettes a day. Reports no significant alcohol intake. She is disabled secondary to spinal stenosis. PAST SURGICAL HISTORY: Significant for lumbar fusion little over 2 years ago at the L3-L4 level. FAMILY HISTORY: She is not aware of any family history for GI tract malignancy. REVIEW OF SYSTEMS: CONSTITUTIONAL: She denies night sweats, chills or fever, but has had weight loss. She is fully vaccinated for COVID. PULMONARY: She reports stable dyspnea on exertion, no dyspnea at rest, intermittent wheezing with stable cough. GASTROINTESTINAL: As noted in the HPI. CARDIAC: She denies chest pressure, heaviness, syncope, presyncope. Does have chest pain, but only when eating. PHYSICAL EXAMINATION: GENERAL: Reveals a chronically ill-appearing white female appearing significantly older than her stated age. VITAL SIGNS: Blood pressure 100/70, weight 136 pounds. HEENT: Otherwise, unremarkable. Sclerae nonicteric. CHEST: Clear. CARDIOVASCULAR: Reveals a regular rate and rhythm without significant murmur, S3 or S4. ABDOMEN: Soft, supple. Epigastric pain to palpation. No mass or organomegaly noted. No evidence for abdominal distention. No bruits appreciated. EXTREMITIES: Reveal no cyanosis, clubbing or edema. ASSESSMENT AND PLAN: For significant dysphagia and odynophagia, the patient is set up for EGD evaluation this Sunday. She was told to discontinue Fosamax, but continue her other medications unchanged. Her electronic medical record was reviewed. Little over 45 minutes care time spent today. Job ID: [id number] DocumentID: [id number] Dictated Date: 02/02/2021 16:01:44 Global Program Manager Date: 02/02/2021 16:51:57 Dictated By: ELISA CARLSON MD MTDD
[~2021-02-04] VITALS: Ht 165 cm; Wt 61.4 kg
[2021-02-04] VITALS (8 sets, daily range): BP systolic 115–143; BP diastolic 58–100
[~2021-02-04 09:43] MED LIST changes: +APIX5TAB PO
[2021-02-04] MEDS ORDERED: LACTATED RINGERS 1,000 ML IV STA (09:51)
[2021-02-04] MEDS ORDERED: HURRICAINE EXT TUBE (BENZOCAINE) XX PRN (10:00)
[2021-02-04] MEDS ORDERED: LIDOCAINE JELLY 2% 6 ML SYRINGE MM PRN (10:00)
[2021-02-04] MEDS ORDERED: NITR-65 PO (10:35)
--- NOTE | 2021-02-04 10:54 | Pre-Op Note & Conscious Sedat ---
Pre-Operative Progress Note H&P Reviewed The H&P was reviewed, patient examined and no changes noted. Date H&P Reviewed: Feb 04, 2021 Time H&P Reviewed: 10:54 Conscious Sedation Pre-Proced ASA Score 3 For ASA 3 and 4: Consider anesthesia and medical clearance. Also, for patients with a history of failed moderate sedation consider anesthesia. Airway Lungs Heart ASA score ASA 1: a normal healthy patient ASA 2: a patient with a mild systemic disease (mid diabetes, controlled hypertension, obesity ASA 3: a patient with a severe systemic disease that limits activity (angina, COPD, prior Myocardial infarction) ASA 4: a patient with an incapacitating disease that is a constant threat to life (CHF, renal failure) ASA 5: a moribund patient not expected to survive 24 hrs. (ruptured aneurysm) ASA 6: a declared brain- patient whose organs are being harvested. For emergent operations, add the letter E after the classification Mallampati Classification Grade 2 Sedation Plan Analgesia, Amnesia, Plan communicated to team members, Discussed options with patient/fam, Discussed risks with patient/fam The patient is an appropriate candidate to undergo the planned procedure, sedation, and anesthesia. The patient immediately re-assessed prior to indication. ELISA CARLSON MD Feb 04, 2021 10:54
[2021-02-04] MEDS ORDERED: proPOfol 200 MG/20 ML (DIPRIVAN) VIAL IV ONE (10:57)
--- NOTE | 2021-02-04 17:02 | OPERATIVE REPORT ---
DATE OF SERVICE: EGD SUMMARY Dr. Mcnamara [facility] is the primary care physician. INDICATION FOR THE EXAMINATION: EGD is performed for evaluation of odynophagia and weight loss. DESCRIPTION OF PROCEDURE: The patient was placed in the left lateral decubitus position. The endoscope was inserted in the oral cavity and under direct visualization, the esophagus was intubated. The endoscope was passed down the esophagus through stomach and second portion of the duodenum. Careful inspection was made as the endoscope was withdrawn. FINDINGS: The posterior pharynx, epiglottis, arytenoid aperture and true and false vocal folds were unremarkable. Photographic documentation was obtained. The proximal, mid and distal esophagus were unremarkable. There was a small sliding hiatal hernia present without evidence for erosive esophagitis. There is no evidence for extrinsic compression. No evidence for Solitario's change. The cardia, fundus, antrum, pylorus, pyloric channel, duodenal bulb and second portion of duodenum were unremarkable. ASSESSMENT: Small hiatal hernia was present without evidence for erosive esophagitis. In light of the fact that the patient had recent CT chest, that just revealed severe emphysema, suspect that this is functional heartburn. It would, however, require a pH study for definitive diagnosis of functional heartburn versus gastroesophageal reflux disease with nonerosive . We did recommend the patient first increase her omeprazole to 20 mg twice daily and advised for the time being she abstain from alendronate that she is taking 70 mg weekly. Job ID: [id number] DocumentID: [id number] Dictated Date: 02/04/2021 11:33:08 Medication Specialist Date: 02/04/2021 17:01:03 Dictated By: ELISA CARLSON MD [facility]
== END 2021-02-04 12:30 | disposition home or self-care (01) ==
LOC: ENDO 09:43
PROVIDERS: ATTEND Internal Medicine
DX: K44.9 Diaphragmatic hernia without obstruction or gangrene (principal); K21.9 Gastro-esophageal reflux disease without esophagitis; J44.9 Chronic obstructive pulmonary disease, unspecified; I25.10 Atherosclerotic heart disease of native coronary artery without angina pectoris; M81.0 Age-related osteoporosis without current pathological fracture; I10 Essential (primary) hypertension; F32.9 Major depressive disorder, single episode, unspecified; F17.210 Nicotine dependence, cigarettes, uncomplicated; Z79.899 Other long term (current) drug therapy

== ENCOUNTER → 2021-08-22 | Outpatient (CLI) | payer MEDICARE, MEDICAID ==
[~2021-08-22] MED LIST changes: -FLUC150T2 PO; +FLUC150T41 PO; +MONT-40 PO; -MONT10TA32 PO; +NITR-65 PO
--- NOTE | 2021-08-22 11:54 | Diagnostic Imaging Report ---
EXAMINATION: Magnetic resonance imaging of the right knee without intravenous contrast. DATE: August 22, 2021. COMPARISON: MRI right knee April 08, 2019. Right knee radiographs March 20, 2019. INDICATION: 61-year-old female, fall with right knee injury and pain. TECHNIQUE: Multiplanar, multisequence non contrast enhanced MR imaging was accomplished. FINDINGS: MENISCI: There is an oblique tear involving the posterior horn of the medial meniscus, perhaps best demonstrated on coronal PD sequence image 18 and sagittal PD fat saturation sequence image 5. The lateral meniscus is intact. LIGAMENTS AND TENDONS: The anterior and posterior cruciate ligaments are intact. The medial collateral ligament is intact. The iliotibial band, mid third lateral capsular ligament, fibular collateral ligament, biceps femoris tendon, and conjoined tendon are intact. The quadriceps tendon and patella ligament are intact. JOINT: The articular cartilage surfaces are intact. There is no knee joint effusion, prominent synovitis, or intra-articular body. BONE: There is a T2 hyperintense lobulated lesion in the intramedullary cavity centered in the region of the distal femoral metaphysis. There is some extension of the lesion into the distal femoral epiphysis. The lesion measures 2.9 x 2.8 x 3.2 cm in size. On April 08, 2019, the lesion previously measured approximately 2.9 x 2.9 x 3.0 cm in size. This is unchanged. This is also unchanged in size dating back to April 16, 2014. There is extensive marrow edema involving the medial femoral condyle. The marrow edema is not completely surrounding the above-mentioned cartilage matrix lesion. There is a nondisplaced fracture of the lateral aspect of the distal femoral epiphysis which is perhaps best classified as a subchondral fracture with fracture line best demonstrated on coronal PD sequence image 16 and sagittal PD sequence image 7. There is also marrow edema in the medial tibial plateau without a visible fracture line. There is patchy mildly T2 hyperintense signal in the lateral tibial plateau as well. There are no pathognomonic signal changes of osteonecrosis. BURSAE AND SOFT TISSUES: There is no Tyler's cyst. IMPRESSION: . 1. Nondisplaced essentially subchondral fracture of the lateral femoral condyle with associated marrow edema. Imaging appearance suggests this is most likely a fatigue or insufficiency related fracture. 2. Low-level edema-like signal in the medial femoral condyle, most likely reflecting bone contusion or stress reaction. Patchy very low level T2 hyperintense signal in the lateral tibial plateau is also likely reflective of low-grade bone contusion or stress reaction. 3. Oblique tear of the posterior horn of the medial meniscus. Intact lateral meniscus. 4. Intact anterior and posterior cruciate ligaments. Additional ligaments and tendons are intact. 5. Cartilage matrix lesion involving the distal femur, unchanged since April 2014, most compatible with enchondroma. 6. Grossly intact articular cartilage. No knee joint effusion. 7. The report was faxed to the office of PABLO [place], by [email or web address] AM. Dictated by: Dictated on workstation # [id number]
== END ==
LOC: RAD 10:15
PROVIDERS: ATTEND Nurse Practitioner
DX: S83.241A Other tear of medial meniscus, current injury, right knee, initial encounter (principal); S72.8X1A Other fracture of right femur, initial encounter for closed fracture; X58.XXXA Exposure to other specified factors, initial encounter
CPT/HCPCS: 73721

== ENCOUNTER → 2021-11-16 | Outpatient (CLI) | payer MEDICARE, MEDICAID ==
[~2021-11-16] MED LIST changes: -FEXO-46 PO; +NF-ALLE180 PO; +OMEP20TA56 PO; -OMEP20TA7 PO
--- NOTE | 2021-11-16 14:49 | Diagnostic Imaging Report ---
INDICATION: Right wrist pain post fall. TECHNIQUE: AP, oblique, and lateral views of the right wrist are obtained. FINDINGS: There is a comminuted partially impacted fracture of the distal radius with mild displacement. There is an ulnar styloid avulsion. Carpal bones are intact. No other bony abnormality is seen. IMPRESSION: Comminuted distal radial fracture with impaction and moderate displacement. Ulnar styloid avulsion fracture. Dictated by: Dictated on workstation # [id number]
== END ==
LOC: RAD FS 11:33
PROVIDERS: ATTEND Nurse Practitioner
DX: S52.354D Nondisplaced comminuted fracture of shaft of radius, right arm, subsequent encounter for closed fracture with routine healing (principal); W19.XXXD Unspecified fall, subsequent encounter
CPT/HCPCS: 73110

== ENCOUNTER → 2021-12-06 | Outpatient (CLI) | payer MEDICARE, MEDICAID ==
--- NOTE | 2021-12-06 11:43 | Diagnostic Imaging Report ---
Indication: Right wrist fracture AP, oblique and lateral views of right wrist are obtained with comparison made to exam of 11/16/2021. Comminuted overriding and mildly angulated fracture of the distal right radius is generally stable appearance and compared to previous study with developing callus formation. There is also mildly angulated fracture of the ulnar styloid process. No new fracture or malalignment is seen. IMPRESSION: Developing callus about the comminuted overriding fracture of the distal radius with generally stable overall appearance of distal radial and ulnar fractures. Dictated by: Dictated on workstation # [id number]
== END ==
LOC: RAD FS 09:57
PROVIDERS: ATTEND Nurse Practitioner
DX: S52.354D Nondisplaced comminuted fracture of shaft of radius, right arm, subsequent encounter for closed fracture with routine healing (principal); X58.XXXD Exposure to other specified factors, subsequent encounter
CPT/HCPCS: 73100

== ENCOUNTER → 2021-12-29 | Outpatient (CLI) | payer MEDICARE, MEDICAID ==
[~2021-12-29] MED LIST changes: +RT-ALBUTEROL SULF 2.5 MG/3 ML PRE-MIX VIAL INH ONE
== END ==
LOC: RT 09:58
PROVIDERS: ATTEND Nurse Practitioner Family
DX: J44.9 Chronic obstructive pulmonary disease, unspecified (principal)
CPT/HCPCS: 94060; 94726; 94729

== ENCOUNTER → 2022-01-23 | Outpatient (CLI) | payer MEDICARE, MEDICAID ==
[~2022-01-23] MED LIST changes: -RT-ALBUTEROL SULF 2.5 MG/3 ML PRE-MIX VIAL INH ONE
--- NOTE | 2022-01-23 19:18 | Diagnostic Imaging Report ---
INDICATION: Follow-up fracture. COMPARISON: 12/06/2021 FINDINGS: Frontal and lateral radiographic views of the right wrist were obtained. Again identified is nonacute transverse oriented fracture of the distal radius. Alignment of the fracture fragments is stable. There has been interval increase in the sclerosis across the fracture line consistent with partial interval healing. Fracture line remains conspicuous. Ulnar styloid fracture also shows partial interval healing. No new acute osseous abnormality is seen. No unexpected radiopaque foreign bodies are identified. IMPRESSION: 1. Redemonstration partially healed nonacute fractures of the right wrist as above. Dictated by: Dictated on workstation # [id number]
== END ==
LOC: RAD FS 09:56
PROVIDERS: ATTEND Nurse Practitioner
DX: S52.354D Nondisplaced comminuted fracture of shaft of radius, right arm, subsequent encounter for closed fracture with routine healing (principal); X58.XXXD Exposure to other specified factors, subsequent encounter
CPT/HCPCS: 73100

== ENCOUNTER → 2022-05-22 | Outpatient (CLI) | payer MEDICARE, MEDICAID ==
--- NOTE | 2022-05-22 15:50 | Diagnostic Imaging Report ---
INDICATION: Right knee pain. COMPARISON: MRI dated 08/22/2021 and radiographs dated 03/20/2019. TECHNIQUE: Three radiographs of the right knee dated 05/22/2022. FINDINGS: Focal sclerosis is noted involving the medial femoral condyle as well as the medial tibial plateau. This is felt to relate to healing of the previously noted fractures at this location noted on prior MRI. A 2.6 x 2.8 cm sclerotic lesion with a ring and arc appearance is noted involving the distal femur, unchanged since at least 2018. No new fracture or dislocation. No destructive osseous process. Joint spaces are well-maintained. No significant osteophytosis. No knee joint effusion. No suspicious radiopaque foreign body. IMPRESSION: No new acute osseous abnormality. Sclerosis related to healing fractures which were previously identified on prior MRI involving the medial femoral condyle and medial tibial plateau. Stable sclerotic lesion within the distal femur related to an underlying low-grade chondroid lesion, particularly an enchondroma. Dictated by: Dictated on workstation # [id number]
== END ==
LOC: RAD FS 08:44
PROVIDERS: ATTEND Nurse Practitioner
DX: M25.561 Pain in right knee (principal)
CPT/HCPCS: 73562

== ENCOUNTER 2022-06-02 09:38 | Emergency (ER) | payer MEDICARE, MEDICAID ==
[2022-06-02 10:06] LABS: BASOPHILS % (AUTO) 0 % (0-10); EOSINOPHILS % (AUTO) 0 % (0-10); HEMATOCRIT 41 % (35-52); LYMPHOCYTES % (AUTO) 27 % (12-44); MEAN CORPUSCULAR HEMOGLOBIN 23 pg (25-34); MEAN CORPUSCULAR HGB CONC 32 g/dL (32-36); MEAN CORPUSCULAR VOLUME 73 fL (80-99); MEAN PLATELET VOLUME 9.8 fL (9.0-12.2); MONOCYTES # (AUTO) 0.6 10^3/uL (0.0-1.0); MONOCYTES % (AUTO) 15 % (0-12); NEUTROPHILS # (AUTO) 2.2 10^3/uL (1.8-7.8); NEUTROPHILS % (AUTO) 58 % (42-75); PLATELET COUNT 198 10^3/uL (130-400); WHITE BLOOD COUNT 3.8 10^3/uL (4.3-11.0)
--- NOTE | 2022-06-02 10:12 | Diagnostic Imaging Report ---
INDICATION: Chest pain. TECHNIQUE: Single view chest 10:01 AM. CORRELATION STUDY: 02/23/2020 FINDINGS: The heart size, mediastinal configuration and pulmonary vascularity are within normal limits. The lungs are clear with no consolidating infiltrate. There is no significant effusion or pneumothorax. Mild rightward curvature thoracic spine. Cholecystectomy clips right upper quadrant. IMPRESSION: 1. Negative appearing single view chest. Dictated by: Dictated on workstation # [id number]
--- NOTE | 2022-06-02 10:22 | ED Cough/URI ---
General Chief Complaint: Respiratory Problems Stated Complaint: CHEST PAIN Nursing Triage Note: Patient presents to the ED via EMS with c/o cough, fever, shortness of breath, and generalized weakness. States symptoms began 7 days ago. Intermittent productive cough and nausea. States she had an episode of sharp chest pain last night that lasted for just a couple seconds. Denies chest pain at this time. Source: patient Exam Limitations: no limitations History of Present Illness Date Seen by Provider: Jun 02, 2022 Time Seen by Provider: 10:00 Initial Comments Patient is a 62-year-old female with history of COPD and CAD who presents with productive cough with clear sputum for the past several days generalized weakness and episodic chest pain lasting less than 2 seconds. Patient denies active chest pain or multiple episodes over the past several days. She had a single episode of chest pain last night while resting in bed. Chest pain was s ubsternal nonradiating and not associated with shortness of breath sweats or nausea. She denies fever chills or sweats. She denies increased shortness of breath. Generalized weakness with limited activity secondary to the same. Decreased appetite for the past several days. Patient has not been evaluated for the symptoms. Patient is a current smoker. She lives by herself and does not have pets. Timing/Duration: week Severity/Quality: other Prior Episodes/Possible Cause: other Modifying Factors: Improves With Other Associated Symptoms: other Allergies and Home Medications Allergies Coded Allergies: No Known Drug Allergies (Unverified , 02/04/21) Patient Home Medication List Home Medication List Reviewed: Yes Albuterol Sulfate (Ventolin Hfa) 1 Puff Puff, 2 PUFF IH Q4H PRN for WHEEZING, (Reported) Entered as Reported by: JAXSON VARGAS on 10/16/17 1230 Albuterol Sulfate (Albuterol Sulfate) 2.5 Mg/3 Ml Vial.neb, 2.5 MG NEB PRN PRN for WHEEZING, (Reported) Entered as Reported by: AMIRA FRITZ on 05/13/19 1536 Apixaban (Eliquis) 5 Mg Tablet, 5 MG PO BID, (Reported) Entered as Reported by: SARAH HARPER on 02/03/21 0952 Atorvastatin Calcium (Atorvastatin Calcium) 20 Mg Tablet, 20 MG PO HS, (Reported) Entered as Reported by: AMIRA FRITZ on 05/13/19 1315 Bupropion HCl (Bupropion HCl) 100 Mg Tablet, 100 MG PO DAILY, (Reported) Entered as Reported by: AMIRA FRITZ on 05/13/19 1315 Escitalopram Oxalate (Escitalopram Oxalate) 20 Mg Tablet, 30 MG PO HS, (Reported) Entered as Reported by: JAXSON VARGAS on 10/16/17 1230 Fexofenadine HCl (Fexofenadine HCl) 180 Mg Tablet, 180 MG PO DAILY, (Reported) Entered as Reported by: MARII MONTILLA on 10/05/20 0812 Fluticasone Propionate (Fluticasone Propionate) 15.8 Ml [place].susp, 2 SPRAYS NSEACH DAILY PRN for CONGESTION, (Reported) Entered as Reported by: JAXSON VARGAS on 10/16/17 1319 Fluticasone/Vilanterol (Breo Ellipta 100-25 Mcg INH) 1 Each Blst.w.dev, 1 PUFF IH DAILY, (Reported) Entered as Reported by: JAXSON VARGAS on 10/16/17 1230 Furosemide (Furosemide) 20 Mg Tablet, 20 MG PO DAILY, (Reported) Entered as Reported by: MARII MONTILLA on 10/05/20 0812 Isosorbide Mononitrate (Isosorbide Mononitrate ER) 30 Mg Tab.er.24h, 30 MG PO DAILY, (Reported) Entered as Reported by: JAXSON VARGAS on 10/16/17 1230 Latanoprost (Latanoprost) 2.5 Ml Drops, 1 DROP OU HS, (Reported) Entered as Reported by: JAXSON VARGAS on 10/16/17 1319 Montelukast Sodium (Montelukast Sodium) 10 Mg Tablet, 10 MG PO HS, (Reported) Entered as Reported by: JAXSON VARGAS on 10/16/17 1319 Nitrofurantoin Monohyd/M-Cryst (Macrobid 100 mg Capsule) 100 Mg Capsule, 1 TAB PO DAILY, (Reported) Entered as Reported by: JUANJOSE TAMAYO on 02/04/21 1035 Nitroglycerin (Nitroglycerin) 0.4 Mg Tab.subl, 0.4 MG SL UD PRN for CHEST PAIN, (Reported) Entered as Reported by: MARII MONTILLA on 10/05/20 08 Omeprazole (Omeprazole) 20 Mg Tablet.dr, 20 MG PO DAILY, (Reported) Entered as Reported by: MARII MONTILLA on 10/05/20 08 Potassium Chloride (Potassium Chloride) 10 Meq Tablet.er, 10 MEQ PO DAILY, (Reported) Entered as Reported by: JAXSON VARGAS on 10/16/17 1230 Pregabalin (Pregabalin) 100 Mg Capsule, 100 MG PO DAILY, (Reported) Entered as Reported by: MARII MONTILLA on 10/05/20 08 Primidone (Mysoline) 250 Mg Tablet, 250 MG PO BID, (Reported) Entered as Reported by: MARII MONTILLA on 10/05/20811 Sucralfate (Sucralfate) 1 Gm Tablet, 1 GM PO BID, (Reported) Entered as Reported by: AMIRA FRITZ on 05/13/19 1315 Topiramate (Topiramate) 100 Mg Tablet, 100 MG PO BID, (Reported) Entered as Reported by: AMIRA FRITZ on 05/13/19 1314 Tramadol HCl (Tramadol HCl) 50 Mg Tablet, 50 MG PO TID, (Reported) Entered as Reported by: AMIRA FRITZ on 05/13/19 1530 Umeclidinium [place] (Incruse Ellipta) 62.5 Mcg Blst.w.dev, 1 PUFF IH DAILY, (Reported) Entered as Reported by: JAXSON VARGAS on 10/16/17 1233 Walker (Ultra-Light Rollator) 1 Each Each, EACH , (DME) Prescribed by: LIZETH DALY on 05/20/19 1623 Review of Systems Review of Systems Constitutional: see HPI EENTM: see HPI Respiratory: see HPI Cardiovascular: see HPI Gastrointestinal: see HPI Genitourinary: see HPI : No Musculoskeletal: see HPI Skin: see HPI Psychiatric/Neurological: See HPI Hematologic/Lymphatic: See HPI Immunological/Allergic: see HPI Past Xhjqfny-Vphwhu-Musenz Hx Patient Social History Tobacco Use?: Yes Tobacco type used: Cigarettes Smoking Status: Current Everyday Smoker Substance use?: No Alcohol Use?: No Pt feels they are or have been: No Immunizations Up To Date Influenza Vaccine Up-to-Date: Yes; Up-to-Date First/Initial COVID19 Vaccinat: 09/2020 Second COVID19 Vaccination [place]: 10/2020 Third COVID19 Vaccination Date: 02/02/2021 Seasonal Allergies Seasonal Allergies: No Past Medical History Surgery/Hospitalization HX: COPD; High Cholesterol; Anxiety; Depression; Migarines; CAD Surgeries: Yes (RIGHT KNEE SCOPE, L3-4 LAMINECTOMY) Gallbladder, Hysterectomy, Oophorectomy Respiratory: Yes COPD, Emphysema Currently Using CPAP: No Currently Using BIPAP: No Cardiac: Yes (CLOGGED ARTERIES) Hypertension Neurological: Yes Headaches /Migraines 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 Disorders: No Female 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 Disorders: Denies POLICY INTERN History: Hysterectomy Sexually Transmitted Disease: No HIV/AIDS: No Genitourinary: No Gastrointestinal: Yes (hx elevated liver ennzymes) Gastroesophageal Reflux, Ulcer Musculoskeletal: Yes Degenerate Disk Disease, Arthritis, Fibromyalgia, Chronic Back Pain Endocrine: No HEENT: Yes (glasses) Glaucoma Loss of Vision: Bilateral Hearing Impairment: Denies Cancer: No Psychosocial: Yes Anxiety, Depression Integumentary: No Blood Disorders: Yes Adverse Reaction/Blood Tranf: No Family Medical History Dementia 19 MOTHER Physical Exam Vital Signs - First Documented 06/02/22 09:38 Temp 36.5 Pulse 103 Resp 18 B/P (MAP) 123/79 (94) Pulse Ox 95 O2 Delivery Room Air Capillary Refill : Less Than 3 Seconds Height: 5'5.00" Weight: 155lbs. 0.0oz. [id number]; 22.55 BMI Method: General Appearance: WD/WN, no apparent distress Eyes: Bilateral Eye Normal Inspection, Bilateral Eye PERRL, Bilateral Eye EOMI HEENT: PERRL/EOMI, normal ENT inspection Neck: non-tender Respiratory: chest non-tender, lungs clear, decreased breath sounds Cardiovascular: normal peripheral pulses, regular rate, rhythm Gastrointestinal: non tender, soft Neurologic/Psychiatric: normal mood/affect, oriented x 3 Lymphatic: no adenopathy Focused Exam Sepsis Stage: Ruled Out Progress/Results/Core Measures Suspected Sepsis SIRS Temperature: Pulse: 103 Respiratory Rate: 18 Laboratory Tests 06/02/22 09:45: White Blood Count 3.8L Blood Pressure 123 /79 Mean: 94 Laboratory Tests 06/02/22 09:45: Creatinine 0.61, Platelet Count 198, Total Bilirubin 0.2 Results/Orders Lab Results Laboratory Tests Test 06/02/22 09:45 06/02/22 10:50 Range/Units White Blood Count 3.8 L 4.3-11.0 10^3/uL Red Blood Count 5.60 H 3.80-5.11 10^6/uL Hemoglobin 13.0 11.5-16.0 g/dL Hematocrit 41 35-52 % Mean Corpuscular Volume 73 L 80-99 fL Mean Corpuscular Hemoglobin 23 L 25-34 pg Mean Corpuscular Hemoglobin Concent 32 32-36 g/dL Red Cell Distribution Width 19.8 H 10.0-14.5 % Platelet Count 198 130-400 10^3/uL Mean Platelet Volume 9.8 9.0-12.2 fL Immature Granulocyte % (Auto) 1 % Neutrophils (%) (Auto) 58 42-75 % Lymphocytes (%) (Auto) 27 12-44 % Monocytes (%) (Auto) 15 H 0-12 % Eosinophils (%) (Auto) 0 0-10 % Basophils (%) (Auto) 0 0-10 % Neutrophils # (Auto) 2.2 1.8-7.8 10^3/uL Lymphocytes # (Auto) 1.0 1.0-4.0 10^3/uL Monocytes # (Auto) 0.6 0.0-1.0 10^3/uL Eosinophils # (Auto) 0.0 0.0-0.3 10^3/uL Basophils # (Auto) 0.0 0.0-0.1 10^3/uL Immature Granulocyte # (Auto) 0.0 0.0-0.1 10^3/uL Sodium Level 136 135-145 MMOL/L Potassium Level 3.2 L 3.6-5.0 MMOL/L Chloride Level 100 98-107 MMOL/L Carbon Dioxide Level 20 L 21-32 MMOL/L Anion Gap 16 H 5-14 MMOL/L Blood Urea Nitrogen 7 7-18 MG/DL Creatinine 0.61 0.60-1.30 MG/DL Estimat Glomerular Filtration Rate 100 BUN/Creatinine Ratio 11 Glucose Level 102 70-105 MG/DL Calcium Level 8.7 8.5-10.1 MG/DL Corrected Calcium 8.9 8.5-10.1 MG/DL Total Bilirubin 0.2 0.1-1.0 MG/DL Aspartate Amino Transf (AST/SGOT) 23 5-34 U/L Alanine Aminotransferase (ALT/SGPT) 13 0-55 U/L Alkaline Phosphatase 167 H 40-136 U/L Troponin I < 0.30 <0.30 NG/ML Pro-B-Type Natriuretic Peptide 111.9 <125.0 PG/ML Total Protein 6.9 6.4-8.2 GM/DL Albumin 3.7 3.2-4.5 GM/DL Influenza Type A (RT-PCR) Not Detected Not Detecte Influenza Type B (RT-PCR) Not Detected Not Detecte SARS-CoV-2 RNA (RT-PCR) Not Detected Not Detecte Urine Color YELLOW Urine Clarity TURBID Urine pH 6.0 5-9 Urine Specific [place] 1.025 H 1.016-1.022 Urine Protein 1+ H NEGATIVE Urine Glucose (UA) NEGATIVE NEGATIVE Urine Ketones 2+ H NEGATIVE Urine Nitrite POSITIVE H NEGATIVE Urine Bilirubin 2+ H NEGATIVE Urine Urobilinogen 1.0 < = 1.0 MG/DL Urine Leukocyte Esterase NEGATIVE NEGATIVE Urine RBC (Auto) 1+ H NEGATIVE Urine RBC NONE /HPF Urine WBC 10-25 H /HPF Urine Squamous Epithelial Cells 10-25 H /HPF Urine Crystals NONE /LPF Urine Bacteria LARGE H /HPF Urine Casts NONE /LPF Urine Mucus SMALL H /LPF Urine Culture Indicated YES My Orders Orders - SLIME GOMEZ DO Cbc With Automated Diff (06/02/22 09:56) Comprehensive Metabolic Panel (06/02/22 09:56) Troponin I Fs (06/02/22 09:56) Chest 1 View Ap/Pa Only (06/02/22 09:56) Ekg Tracing (06/02/22 09:56) Probnp Fs (06/02/22 09:56) Ua Culture If Indicated (06/02/22 10:02) Ns Iv 1000 Ml (Sodium Chloride 0.9%) (06/02/22 10:30) Covid 19 Inhouse Test (06/02/22 10:47) Influenza A And B By Pcr (06/02/22 10:47) Isolation Central Supply Req (06/02/22 10:47) Urine Culture (06/02/22 10:50) Ceftriaxone 1 Gm Pre-Mix (Rocephin 1 Gm (06/02/22 11:30) Vital Signs/I&O 06/02/22 09:38 Temp 36.5 Pulse 103 Resp 18 B/P (MAP) 123/79 (94) Pulse Ox 95 O2 Delivery Room Air Capillary Refill : Less Than 3 Seconds Blood Pressure Mean: 94 Departure Communication (Admissions) Chest x-ray: No acute cardiopulmonary disease per radiology report. EKG: Sinus tach, rate 100, ST depression with T wave abnormalities in anterior lateral leads. No reciprocal changes. Generalized weakness productive cough and noncardiac chest pain. CBC chemistry and troponin are reassuring. Chest x-ray negative. UA consistent with weakness related to urinary tract infection. No findings or signs of sepsis. IV fluids and Rocephin given recommendations are continued therapeutic and supportive care with PCP follow-up. Return precautions reviewed. Patient verbalizes understanding and agreement discharge instructions prior to departure. Impression Primary Impression: Generalized weakness Additional Impression: UTI (urinary tract infection) Disposition: HOME, SELF-CARE Condition: Against Medical Advice Departure-Patient Inst. Decision time for Depature: 11:30 Referrals: AZALEA JACOME MD (PCP) Primary Care Physician Patient Instructions: Urinary Tract Infection, Adult (DC), Generalized Weakness (DC) Add. Discharge Instructions: All discharge instructions reviewed with patient and/or family. Voiced understanding. You were evaluated in the emergency department for generalized weakness fatigue and cough. Chest x-ray EKG and lab work were obtained and are consistent with weakness due to urinary tract infection. Please increase fluids and take newly prescribed antibiotics as directed. Follow-up with your PCP for reevaluation in 3 to 5 days. Return to the ED if you develop new or worsening symptoms. Scripts Cephalexin (Cephalexin) 500 Mg Tablet 500 MG PO TID, #15 TAB Prov: SLIME GOMEZ DO 06/02/22 SLIME GOMEZ DO Jun 02, 2022 10:22
[2022-06-02 10:29] LABS: BUN/CREATININE RATIO 11; CALCIUM 8.7 MG/DL (8.5-10.1); CARBON DIOXIDE 20 MMOL/L (21-32); CHLORIDE 100 MMOL/L (98-107); CREATININE SERUM 0.61 MG/DL (0.60-1.30); GFR ESTIMATED 100; GLUCOSE 102 MG/DL (70-105); POTASSIUM 3.2 MMOL/L (3.6-5.0); SODIUM 136 MMOL/L (135-145)
[2022-06-02 10:30] LABS: ALANINE AMINOTRANSFERASE 13 U/L (0-55); ALBUMIN 3.7 GM/DL (3.2-4.5); ALKALINE PHOSPHATASE 167 U/L (40-136); BILIRUBIN,TOTAL 0.2 MG/DL (0.1-1.0); TOTAL PROTEIN 6.9 GM/DL (6.4-8.2)
[2022-06-02] MEDS ORDERED: NS IV 1000 ML 1,000 ML IV SCH (10:30)
[2022-06-02 11:02] LABS: BILIRUBIN,URINE 2+ (NEGATIVE); CLARITY,URINE TURBID; COLOR,URINE YELLOW; GLUCOSE, URINE (UA) NEGATIVE (NEGATIVE); KETONES,URINE 2+ (NEGATIVE); LEUKOCYTE ESTERASE ,URINE NEGATIVE (NEGATIVE); NITRITE,URINE POSITIVE (NEGATIVE); PROTEIN,URINE 1+ (NEGATIVE)
[2022-06-02 11:12] LABS: BACTERIA,URINE LARGE /HPF
[2022-06-02] MEDS ORDERED: cefTRIAXone 1 GM PRE-MIX 50 ML IV ONE (11:30)
[2022-06-02] MEDS ORDERED: CEPH500T PO (11:32)
[2022-06-02 11:50] VITALS: BP 142/62
== END 2022-06-02 11:50 | disposition home or self-care (01) ==
LOC: EDUNIT# 09:38 → ER FS 09:38
DX: N39.0 Urinary tract infection, site not specified (principal); F17.210 Nicotine dependence, cigarettes, uncomplicated; Z20.822 Contact with and (suspected) exposure to COVID-19
CPT/HCPCS: 36415; 71045; 80053; 81000; 83880; 84484; 85025; 87077; 87088; 87186; 87636; 93005; 96361; 96374

== ENCOUNTER 2022-06-10 19:47 | Emergency (ER) | payer MEDICARE, MEDICAID ==
[~2022-06-10] VITALS: Ht 160 cm; Wt 58.9 kg
[~2022-06-10 19:47] MED LIST changes: +CEPH500T PO
[2022-06-10] MEDS ORDERED: HYDROcodone/APAP 5 MG/325 MG (LORTAB) TAB PO ONE (20:00)
[2022-06-10 20:08] LABS: BASOPHILS % (AUTO) 0 % (0-10); EOSINOPHILS % (AUTO) 0 % (0-10); HEMATOCRIT 34 % (35-52); HEMOGLOBIN 10.9 g/dL (11.5-16.0); LYMPHOCYTES # (AUTO) 1.4 10^3/uL (1.0-4.0); LYMPHOCYTES % (AUTO) 9 % (12-44); MEAN CORPUSCULAR HEMOGLOBIN 24 pg (25-34); MEAN CORPUSCULAR HGB CONC 32 g/dL (32-36); MEAN CORPUSCULAR VOLUME 74 fL (80-99); MEAN PLATELET VOLUME 9.8 fL (9.0-12.2); MONOCYTES # (AUTO) 1.5 10^3/uL (0.0-1.0); MONOCYTES % (AUTO) 9 % (0-12); NEUTROPHILS # (AUTO) 12.8 10^3/uL (1.8-7.8); NEUTROPHILS % (AUTO) 81 % (42-75); PLATELET COUNT 333 10^3/uL (130-400); WHITE BLOOD COUNT 15.8 10^3/uL (4.3-11.0)
[2022-06-10 20:28] LABS: SODIUM 130 MMOL/L (135-145)
[2022-06-10 20:29] LABS: ALANINE AMINOTRANSFERASE 21 U/L (0-55); ALKALINE PHOSPHATASE 146 U/L (40-136); BILIRUBIN,TOTAL 0.5 MG/DL (0.1-1.0); BUN/CREATININE RATIO 10; CALCIUM 7.8 MG/DL (8.5-10.1); CARBON DIOXIDE 25 MMOL/L (21-32); CHLORIDE 92 MMOL/L (98-107); CREATININE SERUM 0.69 MG/DL (0.60-1.30); GFR ESTIMATED 97; GLUCOSE 151 MG/DL (70-105); MAGNESIUM 1.3 MG/DL (1.6-2.4); POTASSIUM 2.6 MMOL/L (3.6-5.0); TOTAL PROTEIN 5.9 GM/DL (6.4-8.2)
[2022-06-10 20:39] LABS: BILIRUBIN,URINE NEGATIVE (NEGATIVE); CLARITY,URINE CLEAR; COLOR,URINE YELLOW; GLUCOSE, URINE (UA) NEGATIVE (NEGATIVE); KETONES,URINE NEGATIVE (NEGATIVE); LEUKOCYTE ESTERASE ,URINE NEGATIVE (NEGATIVE); NITRITE,URINE NEGATIVE (NEGATIVE); PH,URINE 7.5 (5-9); PROTEIN,URINE NEGATIVE (NEGATIVE)
[2022-06-10 20:43] LABS: BACTERIA,URINE FEW /HPF; SQUAMOUS EPITHELIAL CELL,UR >50 /HPF; YEAST,URINE FEW /HPF
[2022-06-10] MEDS ORDERED: morphine INJ 10 MG/ML 1ML (SYR OR VIAL) IVP STA (20:44)
[2022-06-10] MEDS ORDERED: NS IV 1000 ML 1,000 ML IV SCH ×2 (20:45→21:45)
[2022-06-10] MEDS ORDERED: ONDANSETRON 4 MG/2 ML (SDV) Z0FRAN IVP ONE (20:45)
[2022-06-10] MEDS: POTASSIUM CL 10MEQ/50ML IVPB 50 ML IV SCH ×2 (20:53→21:31)
--- NOTE | 2022-06-10 20:56 | Diagnostic Imaging Report ---
EXAMINATION: Left elbow radiographs, 2 views. COMPARISON: None. HISTORY: 62-year-old female, trauma. Left elbow pain. FINDINGS: There is a displaced oblique fracture of the distal humeral metaphysis. The primary distal fracture fragment is medially displaced by 1.1 cm. There is posterior angulation of the distal fracture fragment. The elbow is not frankly dislocated. There is no identified radiopaque foreign body IMPRESSION: Displaced and abnormally angulated fracture of the distal humeral metaphysis. Dictated by: Dictated on workstation # [id number]
--- NOTE | 2022-06-10 20:57 | Diagnostic Imaging Report ---
EXAMINATION: Left humerus, 2 views. COMPARISON: None. HISTORY: 62-year-old female, fall. Left humerus pain. FINDINGS: There is a displaced and abnormally angulated fracture of the distal humeral metaphysis. There is no identified acute fracture of the more proximal aspect of the left humerus. The left acromioclavicular joint is normally aligned. The glenohumeral joint is unremarkable in appearance. IMPRESSION: Displaced and abnormally angulated fracture of the distal humeral metaphysis. Dictated by: Dictated on workstation # [id number]
--- NOTE | 2022-06-10 20:58 | Diagnostic Imaging Report ---
EXAMINATION: Pelvis, single view. Left hip, 2 additional views. COMPARISON: None. HISTORY: Fall. FINDINGS: The pubic symphysis and sacroiliac joints are normally aligned. The right hip is not obviously dislocated. The left hip is not dislocated. There is no identified acute fracture. There is spinal hardware noted. IMPRESSION: No identified acute bony abnormality of the pelvis or left hip. Dictated by: Dictated on workstation # [id number]
--- NOTE | 2022-06-10 20:59 | Diagnostic Imaging Report ---
PROCEDURE: CT head without contrast. TECHNIQUE: Multiple contiguous axial images were obtained through the brain without the use of intravenous contrast. Auto Exposure Controls were utilized during the CT exam to meet ALARA standards for radiation dose reduction. DATE: June 10, 2022. COMPARISON: CT head February 23, 2020. INDICATION: 62-year-old female, trauma. Headache. FINDINGS: There is opacification in both maxillary sinuses, including air-fluid levels, present. There is additional air fluid levels in the frontal sinuses and nonspecific opacification in the ethmoidal air cells, bilaterally. There is no apparent acute maxillofacial bone fracture on standard CT head protocol evaluation. The mastoid air cells and middle ears are well-aerated, bilaterally. There is no identified acute skull fracture. The ventricles and additional CSF spaces are normal in size and configuration for patient age. There is no identified abnormal extra-axial fluid collection. There is no evidence of acute intracranial hemorrhage. There is no mass effect or midline shift. IMPRESSION: 1. No identified acute intracranial abnormality. 2. Paranasal sinus opacification raising concern for acute sinusitis. Dictated by: Dictated on workstation # [id number]
--- NOTE | 2022-06-10 21:27 | ED Upper Extremity ---
General Chief Complaint: Upper Extremity Stated Complaint: FALL Nursing Triage Note: FALL FROM SAME NEETA. HIT HEAD AND LEFT ARM ON WALL. NOTICABLE ABRASION ON RT ARM. Source: patient History of Present Illness Date Seen by Provider: Jun 10, 2022 Time Seen by Provider: 20:00 Initial Comments Patient is a 62-year-old female with history of COPD, home O2 dependent who presents left elbow injury with accidental fall from standing. Patient states she felt weak and lost balance. Patient is on Eliquis and did strike her head on the wall as she fell to the ground. She landed on her left elbow and hip.. She denies loss of consciousness headache neck pain. She reports left elbow pain. Patient was on the ground for approximately 90 minutes before being able being able to contact EMS. No other injuries or pain complaint. Onset: just prior to arrival Severity: moderate Pain/Injury Location: left forearm Method of Injury: other Modifying Factors: Improves With Other Allergies and Home Medications Allergies Coded Allergies: No Known Drug Allergies (Unverified , 02/04/21) Patient Home Medication List Home Medication List Reviewed: Yes Albuterol Sulfate (Ventolin Hfa) 1 Puff Puff, 2 PUFF IH Q4H PRN for WHEEZING, (Reported) Entered as Reported by: JAXSON VARGAS on 10/16/17 1230 Albuterol Sulfate (Albuterol Sulfate) 2.5 Mg/3 Ml Vial.neb, 2.5 MG NEB PRN PRN for WHEEZING, (Reported) Entered as Reported by: AMIRA FRITZ on 05/13/19 1536 Apixaban (Eliquis) 5 Mg Tablet, 5 MG PO BID, (Reported) Entered as Reported by: SARAH HARPER on 02/03/21 0952 Atorvastatin Calcium (Atorvastatin Calcium) 20 Mg Tablet, 20 MG PO HS, (Reported) Entered as Reported by: AMIRA FRITZ on 05/13/19 1315 Bupropion HCl (Bupropion HCl) 100 Mg Tablet, 100 MG PO DAILY, (Reported) Entered as Reported by: AMIRA FRITZ on 05/13/19 1315 Cephalexin (Cephalexin) 500 Mg Tablet, 500 MG PO TID Prescribed by: SILME GOMEZ on 06/02/22 1132 Escitalopram Oxalate (Escitalopram Oxalate) 20 Mg Tablet, 30 MG PO HS, (Reported) Entered as Reported by: JAXSON VARGAS on 10/16/17 1230 Fexofenadine HCl (Fexofenadine HCl) 180 Mg Tablet, 180 MG PO DAILY, (Reported) Entered as Reported by: MARII MONTILLA on 10/05/20 0812 Fluticasone Propionate (Fluticasone Propionate) 15.8 Ml [place].susp, 2 SPRAYS NSEACH DAILY PRN for CONGESTION, (Reported) Entered as Reported by: JAXSON VARGAS on 10/16/17 1319 Fluticasone/Vilanterol (Breo Ellipta 100-25 Mcg INH) 1 Each Blst.w.dev, 1 PUFF IH DAILY, (Reported) Entered as Reported by: JAXSON VARGAS on 10/16/17 1230 Furosemide (Furosemide) 20 Mg Tablet, 20 MG PO DAILY, (Reported) Entered as Reported by: MARII MONTILLA on 10/05/20 08 Isosorbide Mononitrate (Isosorbide Mononitrate ER) 30 Mg Tab.er.24h, 30 MG PO DAILY, (Reported) Entered as Reported by: JAXSON VARGAS on 10/16/17 1230 Latanoprost (Latanoprost) 2.5 Ml Drops, 1 DROP OU HS, (Reported) Entered as Reported by: JAXSON VARGAS on 10/16/17 1319 Montelukast Sodium (Montelukast Sodium) 10 Mg Tablet, 10 MG PO HS, (Reported) Entered as Reported by: JAXSON VARGAS on 10/16/17 1319 Nitrofurantoin Monohyd/M-Cryst (Macrobid 100 mg Capsule) 100 Mg Capsule, 1 TAB PO DAILY, (Reported) Entered as Reported by: JUANJOSE TAMAYO on 02/04/21 1035 Nitroglycerin (Nitroglycerin) 0.4 Mg Tab.subl, 0.4 MG SL UD PRN for CHEST PAIN, (Reported) Entered as Reported by: MARII MONTILLA on 10/05/20 0812 Omeprazole (Omeprazole) 20 Mg Tablet.dr, 20 MG PO DAILY, (Reported) Entered as Reported by: MARII MONTILLA on 10/05/20 08 Potassium Chloride (Potassium Chloride) 10 Meq Tablet.er, 10 MEQ PO DAILY, (Reported) Entered as Reported by: JAXSON VARGAS on 10/16/17 1230 Pregabalin (Pregabalin) 100 Mg Capsule, 100 MG PO DAILY, (Reported) Entered as Reported by: MARII MONTILLA on 10/05/20 0812 Primidone (Mysoline) 250 Mg Tablet, 250 MG PO BID, (Reported) Entered as Reported by: MARII MONTILLA on 10/05/20 0812 Sucralfate (Sucralfate) 1 Gm Tablet, 1 GM PO BID, (Reported) Entered as Reported by: AMIRA FRITZ on 05/13/19 1315 Topiramate (Topiramate) 100 Mg Tablet, 100 MG PO BID, (Reported) Entered as Reported by: AMIRA FRITZ on 05/13/19 1314 Tramadol HCl (Tramadol HCl) 50 Mg Tablet, 50 MG PO TID, (Reported) Entered as Reported by: AMIRA FRITZ on 05/13/19 1530 Umeclidinium [place] (Incruse Ellipta) 62.5 Mcg Blst.w.dev, 1 PUFF IH DAILY, (Reported) Entered as Reported by: JAXSON VARGAS on 10/16/17 1233 Walker (Ultra-Light Rollator) 1 Each Each, EACH MC, (DME) Prescribed by: LIZETH DALY on 05/20/19 1623 Review of Systems Constitutional: see HPI EENTM: see HPI Respiratory: see HPI Cardiovascular: see HPI Gastrointestinal: see HPI Genitourinary: see HPI Musculoskeletal: see HPI Skin: see HPI Psychiatric/Neurological: See HPI All Other Systems Reviewed Negative Unless Noted: No Past Yjmuypv-Wdgkew-Vndecq Hx Patient Social History Tobacco Use?: Yes Tobacco type used: Cigarettes Smoking Status: Current Everyday Smoker Immunizations Up To Date Influenza Vaccine Up-to-Date: Yes; Up-to-Date First/Initial COVID19 Vaccinat: 09/2020 Second COVID19 Vaccination [place]: 10/2020 Third COVID19 Vaccination Date: 02/02/2021 Seasonal Allergies Seasonal Allergies: No Past Medical History Surgery/Hospitalization HX: COPD; High Cholesterol; Anxiety; Depression; Migarines; CAD Surgeries: Yes (RIGHT KNEE SCOPE, L3-4 LAMINECTOMY) Gallbladder, Hysterectomy, Oophorectomy Respiratory: Yes COPD, Emphysema Currently Using CPAP: No Currently Using BIPAP: No Cardiac: Yes (CLOGGED ARTERIES) Hypertension Neurological: Yes Headaches /Migraines 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 Disorders: No Female 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 Disorders: Denies 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 Sexually Transmitted Disease: No HIV/AIDS: No Genitourinary: No Gastrointestinal: Yes (hx elevated liver ennzymes) Gastroesophageal Reflux, Ulcer Musculoskeletal: Yes Degenerate Disk Disease, Arthritis, Fibromyalgia, Chronic Back Pain Endocrine: No HEENT: Yes (glasses) Glaucoma Loss of Vision: Bilateral Hearing Impairment: Denies Cancer: No Psychosocial: Yes Anxiety, Depression Integumentary: No Blood Disorders: Yes Adverse Reaction/Blood Tranf: No Family Medical History Dementia 19 MOTHER Physical Exam Vital Signs Vital Signs - First Documented 06/10/22 06/10/22 19:48 21:01 Temp 36.9 Pulse 114 Resp 20 B/P (MAP) 118/61 (80) Pulse Ox 99 O2 Delivery Room Air O2 Flow Rate 2.00 Capillary Refill : Less Than 3 Seconds Height, Weight, BMI Height: 5'5.00" Weight: 155lbs. 0.0oz. [id number]; 23.00 BMI Method: General Appearance: WD/WN, mild distress (Secondary to pain) HEENT: PERRL/EOMI, normal ENT inspection Neck: non-tender, full range of motion Cardiovascular: normal peripheral pulses, regular rate, rhythm Respiratory: lungs clear Gastrointestinal: non tender, soft Shoulder: non-tender, no evidence of injury, bone tenderness, pain, soft tissue tenderness Elbow/Forearm: Left, bone tenderness, limited ROM, soft tissue tenderness, swelling Wrist: Yes normal inspection, Yes non-tender Hand: non-tender, Left Neurologic/Psychiatric: no motor/sensory deficits, alert, oriented x 3 Progress/Results/Core Measures Results/Orders Lab Results Laboratory Tests Test 06/10/22 20:05 06/10/22 20:10 06/10/22 20:50 Range/Units White Blood Count 15.8 H 4.3-11.0 10^3/uL Red Blood Count 4.63 3.80-5.11 10^6/uL Hemoglobin 10.9 L 11.5-16.0 g/dL Hematocrit 34 L 35-52 % Mean Corpuscular Volume 74 L 80-99 fL Mean Corpuscular Hemoglobin 24 L 25-34 pg Mean Corpuscular Hemoglobin Concent 32 32-36 g/dL Red Cell Distribution Width 18.8 H 10.0-14.5 % Platelet Count 333 130-400 10^3/uL Mean Platelet Volume 9.8 9.0-12.2 fL Immature Granulocyte % (Auto) 1 % Neutrophils (%) (Auto) 81 H 42-75 % Lymphocytes (%) (Auto) 9 L 12-44 % Monocytes (%) (Auto) 9 0-12 % Eosinophils (%) (Auto) 0 0-10 % Basophils (%) (Auto) 0 0-10 % Neutrophils # (Auto) 12.8 H 1.8-7.8 10^3/uL Lymphocytes # (Auto) 1.4 1.0-4.0 10^3/uL Monocytes # (Auto) 1.5 H 0.0-1.0 10^3/uL Eosinophils # (Auto) 0.0 0.0-0.3 10^3/uL Basophils # (Auto) 0.0 0.0-0.1 10^3/uL Immature Granulocyte # (Auto) 0.1 0.0-0.1 10^3/uL Sodium Level 130 L 135-145 MMOL/L Potassium Level 2.6 L 3.6-5.0 MMOL/L Chloride Level 92 L 98-107 MMOL/L Carbon Dioxide Level 25 21-32 MMOL/L Anion Gap 13 5-14 MMOL/L Blood Urea Nitrogen 7 7-18 MG/DL Creatinine 0.69 0.60-1.30 MG/DL Estimat Glomerular Filtration Rate 97 BUN/Creatinine Ratio 10 Glucose Level 151 H 70-105 MG/DL Calcium Level 7.8 L 8.5-10.1 MG/DL Corrected Calcium 8.6 8.5-10.1 MG/DL Magnesium Level 1.3 L 1.6-2.4 MG/DL Total Bilirubin 0.5 0.1-1.0 MG/DL Aspartate Amino Transf (AST/SGOT) 28 5-34 U/L Alanine Aminotransferase (ALT/SGPT) 21 0-55 U/L Alkaline Phosphatase 146 H 40-136 U/L Troponin I < 0.30 <0.30 NG/ML Total Protein 5.9 L 6.4-8.2 GM/DL Albumin 3.0 L 3.2-4.5 GM/DL Urine Color YELLOW Urine Clarity CLEAR Urine pH 7.5 5-9 Urine Specific [place] 1.010 L 1.016-1.022 Urine Protein NEGATIVE NEGATIVE Urine Glucose (UA) NEGATIVE NEGATIVE Urine Ketones NEGATIVE NEGATIVE Urine Nitrite NEGATIVE NEGATIVE Urine Bilirubin NEGATIVE NEGATIVE Urine Urobilinogen 0.2 < = 1.0 MG/DL Urine Leukocyte Esterase NEGATIVE NEGATIVE Urine RBC (Auto) NEGATIVE NEGATIVE Urine RBC 5-10 H /HPF Urine WBC 2-5 /HPF Urine Squamous Epithelial Cells >50 H /HPF Urine Crystals NONE /LPF Urine Bacteria FEW H /HPF Urine Casts NONE /LPF Urine Mucus NEGATIVE /LPF Urine Yeast FEW H /HPF Urine Culture Indicated NO Lactic Acid Level 2.39 *H 0.50-2.00 MMOL/L My Orders Orders - SLIME GOMEZ DO Ct Head Wo (06/10/22 19:57) Humerus 2 View Left (06/10/22 19:57) Elbow 3 View Left (06/10/22 19:57) Cbc With Automated Diff (06/10/22 19:57) Comprehensive Metabolic Panel (06/10/22 19:57) Troponin I Fs (06/10/22 19:57) Ua Culture If Indicated (06/10/22 19:57) Magnesium (06/10/22 19:57) Hydrocodone/Apap 5/325 Tablet (Lortab 5 (06/10/22 20:00) Manual Differential (06/10/22 20:05) Pelvis With Left Hip 2-3 View (06/10/22 20:35) Potassium Cl 10meq/50ml Ivpb (Kcl 10 Meq (06/10/22 20:45) Ns Iv 1000 Ml (Sodium Chloride 0.9%) (06/10/22 20:45) Lactic Acid Analyzer (06/10/22 20:40) Covid 19 Inhouse Test (06/10/22 20:40) Influenza A And B By Pcr (06/10/22 20:40) Isolation Central Supply Req (06/10/22 20:40) Blood Culture (06/10/22 20:40) Morphine Injection (Morphine Injection (06/10/22 20:44) Ondansetron Injection (Zofran Injectio (06/10/22 20:45) Orthopedic Equiment (06/10/22 20:44) Blood Culture (06/10/22 20:55) Ns Iv 1000 Ml (Sodium Chloride 0.9%) (06/10/22 21:45) Medications Given in ED Current Medications Medications Dose Ordered Sig/Pasquale Route Start Time Stop Time Status Last Admin Dose Admin Acetaminophen/ Hydrocodone Bitart 1 ea ONCE ONCE PO 06/10/22 20:00 06/10/22 20:01 DC 06/10/22 20:04 1 EA Ondansetron HCl 4 mg ONCE ONCE IVP 06/10/22 20:45 06/10/22 20:46 DC 06/10/22 20:56 4 MG Vital Signs/I&O 06/10/22 06/10/22 06/10/22 06/10/22 19:48 21:01 21:16 21:33 Temp 36.9 Pulse 114 108 107 Resp 20 22 19 B/P (MAP) 118/61 (80) 112/62 (79) 112/62 Pulse Ox 99 86 85 97 O2 Delivery Room Air Nasal Cannula Nasal Cannula Nasal Cannula O2 Flow Rate 2.00 2.00 2.00 Blood Pressure Mean: 79 Departure Communication (Admissions) CT head: No acute findings per radiology report Left humerus/elbow, displaced angulated distal humerus fracture per radiology report Pelvis/hip: No obvious displaced fracture per radiology report Patient with accidental fall from standing due to weakness. Head injury without evidence of intracranial injury. Left elbow injury with closed displaced angulated fracture. Left limb is neurovascularly intact. Patient placed splinted in position of comfort and given IV narcotic pain medication. Case discussed with Dr. Marino on-call for Ortho at [facility]. Dr. MARINO does not have expertise in fracture types and recommends [facility]. Patient accepted to [facility] ER, Dr. Garza. Hypokalemia and hyponatremia likely contributing to weakness resulting in fall. Oral and IV potassium given and sodium replaced. Normal saline given Elevated white blood cell count lactic Acid level was left shift. Patient afebrile with stable vital signs. UA, COVID and influenza are negative. COPD cough, with chest xr pending. IV Rocephin and 30 cc/kg fluid bolus given. Blood pressure remained stable Patient's vital signs stable throughout ED stay. [facility] to transfer patient to [facility] ER. Impression Primary Impression: Left humeral fracture Additional Impressions: Hyponatremia Hypokalemia Severe sepsis Disposition: SHT-TRM HOSP Condition: Stable Transfer Transfer Reason: Exceeds level of care Time Spoke to Accepting Phy: 21:00 Transfer Progress Notes Patient with stable vital signs at time of transfer and accepted to [place] emergency department by Dr. Garza. Method of Transfer: EMS Departure-Patient Inst. Decision time for Depature: 21:36 Referrals: AZALEA JACOME MD (PCP/Family) Primary Care Physician SLIME GOMEZ DO Jun 10, 2022 21:27
[2022-06-10 21:33] VITALS: BP 112/62
[2022-06-10 21:52] LABS: LYMPHOCYTES % (MANUAL) 8 %; MONOCYTES % (MANUAL) 9 %; NEUTROPHILS % (MANUAL) 83 %
== END 2022-06-10 21:35 | disposition short-term general hospital (02) ==
LOC: EDUNIT# 19:47 → ER FS 19:51
DX: S42.402A Unspecified fracture of lower end of left humerus, initial encounter for closed fracture (principal); E87.1 Hypo-osmolality and hyponatremia; E87.6 Hypokalemia; R65.20 Severe sepsis without septic shock; J43.9 Emphysema, unspecified; F17.210 Nicotine dependence, cigarettes, uncomplicated; Z99.81 Dependence on supplemental oxygen; Z79.01 Long term (current) use of anticoagulants; W01.198A Fall on same level from slipping, tripping and stumbling with subsequent striking against other object, initial encounter
CPT/HCPCS: 29105; 36415; 70450; 73060; 73080; 73502; 80053; 81000; 83605; 83735; 84484; 85007; 85027; 87040; 93041

== ENCOUNTER → 2022-07-28 | Outpatient (CLI) | payer MEDICARE, MEDICAID ==
[2022-07-28 12:00] LABS: BILIRUBIN,URINE NEGATIVE (NEGATIVE); CLARITY,URINE CLOUDY; COLOR,URINE YELLOW; GLUCOSE, URINE (UA) NEGATIVE (NEGATIVE); KETONES,URINE TRACE (NEGATIVE); LEUKOCYTE ESTERASE ,URINE NEGATIVE (NEGATIVE); NITRITE,URINE NEGATIVE (NEGATIVE); PH,URINE 5.5 (5-9); PROTEIN,URINE NEGATIVE (NEGATIVE)
[2022-07-28 12:08] LABS: BACTERIA,URINE FEW /HPF; CALCIUM OXALATE CRYSTALS,UR MODERATE /LPF
== END ==
LOC: IHC 11:42
PROVIDERS: ATTEND Internal Medicine
DX: R82.71 Bacteriuria (principal)
CPT/HCPCS: 81000

== ENCOUNTER 2023-01-02 00:17 | Emergency (ER) | payer MEDICARE, MEDICAID ==
[~2023-01-02] VITALS: Ht 157.4 cm; Wt 58.9 kg
[2023-01-02 00:17] VITALS: BP 113/68
--- NOTE | 2023-01-02 00:26 | ED Fall/Injury ---
General Stated Complaint: FALL Source: patient Exam Limitations: no limitations History of Present Illness Date Seen by Provider: Jan 02, 2023 Time Seen by Provider: 00:20 Initial Comments 62-year-old female coming in after a ground-level fall tripping landing on her right side on her right elbow and right hip. Had immediate right hip pain and called 911. Did not hit her head or pass out. No neck or back pain. No weakness or numbness. EMS gave 50 mcg of fentanyl. Otherwise denying any other acute complaints. Tetanus is UTD within the past 10 years. Allergies and Home Medications Allergies Coded Allergies: No Known Drug Allergies (Unverified , 02/04/21) Patient Home Medication List Home Medication List Reviewed: Yes Albuterol Sulfate (Ventolin Hfa) 1 Puff Puff, 2 PUFF IH Q4H PRN for WHEEZING, (Reported) Entered as Reported by: JAXSON VARGAS on 10/16/17 1230 Albuterol Sulfate (Albuterol Sulfate) 2.5 Mg/3 Ml Vial.neb, 2.5 MG NEB PRN PRN for WHEEZING, (Reported) Entered as Reported by: AMIRA FRITZ on 05/13/19 1536 Apixaban (Eliquis) 5 Mg Tablet, 5 MG PO BID, (Reported) Entered as Reported by: SARAH HARPER on 02/03/21 0952 Atorvastatin Calcium (Atorvastatin Calcium) 20 Mg Tablet, 20 MG PO HS, (Reported) Entered as Reported by: AMIRA FRITZ on 05/13/19 1315 Bupropion HCl (Bupropion HCl) 100 Mg Tablet, 100 MG PO DAILY, (Reported) Entered as Reported by: AMIRA FRITZ on 05/13/19 1315 Cephalexin (Cephalexin) 500 Mg Tablet, 500 MG PO TID Prescribed by: SLIME GOMEZ on 06/02/22 1132 Escitalopram Oxalate (Escitalopram Oxalate) 20 Mg Tablet, 30 MG PO HS, (Reported) Entered as Reported by: JAXSON VARGAS on 10/16/17 1230 Fexofenadine HCl (Fexofenadine HCl) 180 Mg Tablet, 180 MG PO DAILY, (Reported) Entered as Reported by: MARII MONTILLA on 10/05/20 0812 Fluticasone Propionate (Fluticasone Propionate) 15.8 Ml [place].susp, 2 SPRAYS NSEACH DAILY PRN for CONGESTION, (Reported) Entered as Reported by: JAXSON VARGAS on 10/16/17 1319 Fluticasone/Vilanterol (Breo Ellipta 100-25 Mcg INH) 1 Each Blst.w.dev, 1 PUFF IH DAILY, (Reported) Entered as Reported by: JAXSON VARGAS on 10/16/17 1230 Furosemide (Furosemide) 20 Mg Tablet, 20 MG PO DAILY, (Reported) Entered as Reported by: MARII MONTILLA on 10/05/20 08 Isosorbide Mononitrate (Isosorbide Mononitrate ER) 30 Mg Tab.er.24h, 30 MG PO DAILY, (Reported) Entered as Reported by: JAXSON VARGAS on 10/16/17 1230 Latanoprost (Latanoprost) 2.5 Ml Drops, 1 DROP OU HS, (Reported) Entered as Reported by: JAXSON VARGAS on 10/16/17 131 Montelukast Sodium (Montelukast Sodium) 10 Mg Tablet, 10 MG PO HS, (Reported) Entered as Reported by: JAXSON VARGAS on 10/16/17 1319 Nitrofurantoin Monohyd/M-Cryst (Macrobid 100 mg Capsule) 100 Mg Capsule, 1 TAB PO DAILY, (Reported) Entered as Reported by: JUANJOSE TAMAYO on 02/04/21 1035 Nitroglycerin (Nitroglycerin) 0.4 Mg Tab.subl, 0.4 MG SL UD PRN for CHEST PAIN, (Reported) Entered as Reported by: MARII MONTILLA on 10/05/20 08 Omeprazole (Omeprazole) 20 Mg Tablet.dr, 20 MG PO DAILY, (Reported) Entered as Reported by: MARII MONTILLA on 10/05/20 08 Potassium Chloride (Potassium Chloride) 10 Meq Tablet.er, 10 MEQ PO DAILY, (Reported) Entered as Reported by: JAXSON VARGAS on 10/16/17 1230 Pregabalin (Pregabalin) 100 Mg Capsule, 100 MG PO DAILY, (Reported) Entered as Reported by: MARII MONTILLA on 10/05/20 08 Primidone (Mysoline) 250 Mg Tablet, 250 MG PO BID, (Reported) Entered as Reported by: MARII MONTILLA on 10/05/20 0812 Sucralfate (Sucralfate) 1 Gm Tablet, 1 GM PO BID, (Reported) Entered as Reported by: AMIRA FRITZ on 05/13/19 1315 Topiramate (Topiramate) 100 Mg Tablet, 100 MG PO BID, (Reported) Entered as Reported by: AMIRA FRITZ on 05/13/19 1314 Tramadol HCl (Tramadol HCl) 50 Mg Tablet, 50 MG PO TID, (Reported) Entered as Reported by: AMIRA FRITZ on 05/13/19 1530 Umeclidinium [place] (Incruse Ellipta) 62.5 Mcg Blst.w.dev, 1 PUFF IH DAILY, (Reported) Entered as Reported by: JAXSON VARGAS on 10/16/17 1233 Walker (Ultra-Light Rollator) 1 Each Each, EACH MC, (DME) Prescribed by: LIZETH DALY on 05/20/19 1623 Review of Systems Review of Systems Constitutional: No fever Eyes: No Symptoms Reported Ears, Nose, Mouth, Throat: no symptoms reported Respiratory: no symptoms reported Cardiovascular: no symptoms reported Gastrointestinal: no symptoms reported Genitourinary: no symptoms reported Musculoskeletal: see HPI Skin: no symptoms reported Psychiatric/Neurological: No Symptoms Reported Past Upscanz-Fetnck-Hmhwra Hx Patient Social History Substance use?: No Immunizations Up To Date First/Initial COVID19 Vaccinat: 09/2020 Second COVID19 Vaccination [place]: 10/2020 Third COVID19 Vaccination Date: 02/02/2021 Seasonal Allergies Seasonal Allergies: No Past Medical History Surgery/Hospitalization HX: COPD; High Cholesterol; Anxiety; Depression; Migarines; CAD Surgeries: Yes (RIGHT KNEE SCOPE, L3-4 LAMINECTOMY) Gallbladder, Hysterectomy, Oophorectomy Respiratory: Yes COPD, Emphysema Currently Using CPAP: No Currently Using BIPAP: No Cardiac: Yes (CLOGGED ARTERIES) Hypertension Neurological: Yes Headaches /Migraines 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 Disorders: No Female 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 Disorders: 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 Sexually Transmitted Disease: No HIV/AIDS: No Genitourinary: No Gastrointestinal: Yes (hx elevated liver ennzymes) Gastroesophageal Reflux, Ulcer Musculoskeletal: Yes Degenerate Disk Disease, Arthritis, Fibromyalgia, Chronic Back Pain Endocrine: No HEENT: Yes (glasses) Glaucoma Loss of Vision: Bilateral Hearing Impairment: Denies Cancer: No Psychosocial: Yes Anxiety, Depression Integumentary: No Blood Disorders: Yes Adverse Reaction/Blood Tranf: No Family Medical History Dementia 19 MOTHER Physical Exam Vital Signs Vital Signs - First Documented Capillary Refill : Height, Weight, BMI Height: 5'5.00" Weight: 155lbs. 0.0oz. 70.700015ie; 23.00 BMI Method: General Appearance: WD/WN, no apparent distress HEENT: PERRL/EOMI, normal ENT inspection, pharynx normal Neck: non-tender, full range of motion, supple, normal inspection Cardiovascular: regular rate, rhythm, no edema, no murmur Respiratory: chest non-tender, lungs clear, normal breath sounds, no respiratory distress, no accessory muscle use Gastrointestinal: normal bowel sounds, non tender, soft; No distended, No guarding, No rebound Back: normal inspection, no CVA tenderness, no vertebral tenderness Extremities: no pedal edema, no calf tenderness, normal capillary refill, other (Skin tear to the right elbow and right knee, right hip with pain to palpation and with range of motion) Neurologic/Psychiatric: no motor/sensory deficits, alert, normal mood/affect, oriented x 3 Skin: normal color, warm/dry Phillip Coma Score Best Eye Response: (4) Open Spontaneously Best Verbal Response: (5) Oriented Best Motor Response: (6) Obeys Commands Progress/Results/Core Measures Results/Orders Lab Results Laboratory Tests Test 01/02/23 00:18 Range/Units White Blood Count 8.4 4.3-11.0 10^3/uL Red Blood Count 4.51 3.80-5.11 10^6/uL Hemoglobin 9.7 L 11.5-16.0 g/dL Hematocrit 34 L 35-52 % Mean Corpuscular Volume 75 L 80-99 fL Mean Corpuscular Hemoglobin 22 L 25-34 pg Mean Corpuscular Hemoglobin Concent 29 L 32-36 g/dL Red Cell Distribution Width 20.5 H 10.0-14.5 % Platelet Count 239 130-400 10^3/uL Mean Platelet Volume 10.3 9.0-12.2 fL Immature Granulocyte % (Auto) 1 % Neutrophils (%) (Auto) 56 42-75 % Lymphocytes (%) (Auto) 35 12-44 % Monocytes (%) (Auto) 7 0-12 % Eosinophils (%) (Auto) 1 0-10 % Basophils (%) (Auto) 1 0-10 % Neutrophils # (Auto) 4.7 1.8-7.8 10^3/uL Lymphocytes # (Auto) 2.9 1.0-4.0 10^3/uL Monocytes # (Auto) 0.6 0.0-1.0 10^3/uL Eosinophils # (Auto) 0.1 0.0-0.3 10^3/uL Basophils # (Auto) 0.1 0.0-0.1 10^3/uL Immature Granulocyte # (Auto) 0.1 0.0-0.1 10^3/uL My Orders Orders - ANAHY MCDOWELL MD Pelvis With Right Hip 2-3 View (01/02/23 00:22) Cbc With Automated Diff (01/02/23 00:32) Comprehensive Metabolic Panel (01/02/23 00:32) Protime With Inr (01/02/23 00:32) Partial Thromboplastin Time (01/02/23 00:32) Morphine Injection (Morphine Injection (01/02/23 00:33) Vital Signs/I&O 01/02/23 01/02/23 00:17 00:17 Temp 36.9 36.9 Pulse 86 86 Resp 18 18 B/P (MAP) 113/68 (83) 113/68 (83) Pulse Ox 98 98 O2 Delivery Room Air Room Air Progress Progress Note : Progress Note 62-year-old female with above history coming in after mechanical ground-level fall with right hip pain. ABCs were intact and vitals were stable on presentation. Physical exam with right hip tenderness, neurovascularly intact otherwise. X-ray of the pelvis and right hip ordered and interpreted by me showing a right proximal femur fracture. 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 The patient was given IV morphine for pain control here. Did not hit her head, did not pass out, no neck or back pain. We will hold off on CT imaging at this time. I contacted [facility], and Dr. Corrales accepted the patient as a trauma. Diagnostic Imaging Diagonstic Imaging: Xray (pelvis and right hip) Departure Impression Primary Impression: Fracture of proximal end of right femur Qualified Codes: S72.001A - Fracture of unspecified part of neck of right femur, initial encounter for closed fracture Disposition: XFER SHT-TRM HOSP Condition: Stable Admissions Decision to Admit/Date: Jan 02, 2023 Time/Decision to Admit Time: 00:30 Transfer Medically Cleared for Xfer: Yes Transfer Reason: Exceeds level of care (needs ortho transportation department supervisor) Transfer Progress Notes Accepted by Dr. Corrales Transfer Facility: [place] Method of Transfer: EMS Departure-Patient Inst. Referrals: AZALEA JACOME MD (PCP) Primary Care Physician ANAHY MCDOWELL MD Jan 02, 2023 00:26
[2023-01-02] MEDS ORDERED: morphine INJ 10 MG/ML 1ML (SYR OR VIAL) IVP STA (00:33)
[2023-01-02 00:38] LABS: BASOPHILS # (AUTO) 0.1 10^3/uL (0.0-0.1); BASOPHILS % (AUTO) 1 % (0-10); EOSINOPHILS # (AUTO) 0.1 10^3/uL (0.0-0.3); EOSINOPHILS % (AUTO) 1 % (0-10); HEMATOCRIT 34 % (35-52); HEMOGLOBIN 9.7 g/dL (11.5-16.0); LYMPHOCYTES # (AUTO) 2.9 10^3/uL (1.0-4.0); LYMPHOCYTES % (AUTO) 35 % (12-44); MEAN CORPUSCULAR HEMOGLOBIN 22 pg (25-34); MEAN CORPUSCULAR HGB CONC 29 g/dL (32-36); MEAN CORPUSCULAR VOLUME 75 fL (80-99); MEAN PLATELET VOLUME 10.3 fL (9.0-12.2); MONOCYTES # (AUTO) 0.6 10^3/uL (0.0-1.0); MONOCYTES % (AUTO) 7 % (0-12); NEUTROPHILS # (AUTO) 4.7 10^3/uL (1.8-7.8); NEUTROPHILS % (AUTO) 56 % (42-75); PLATELET COUNT 239 10^3/uL (130-400); WHITE BLOOD COUNT 8.4 10^3/uL (4.3-11.0)
[2023-01-02 01:00] LABS: ALBUMIN 3.6 GM/DL (3.2-4.5); BILIRUBIN,TOTAL 0.2 MG/DL (0.1-1.0); CALCIUM 8.8 MG/DL (8.5-10.1); CREATININE SERUM 0.77 MG/DL (0.60-1.30); POTASSIUM 3.8 MMOL/L (3.6-5.0)
[2023-01-02 01:10] LABS: INR 0.9 (0.8-1.4); PROTHROMBIN TIME PATIENT 12.3 SEC (12.2-14.7)
--- NOTE | 2023-01-02 07:39 | Diagnostic Imaging Report ---
INDICATION: Pain, fall COMPARISON: 06/10/2022 TECHNIQUE: 3 radiographs of the pelvis and right hip are obtained dated 01/02/2023 FINDINGS: Postsurgical changes within the lower lumbar spine are partially visualized. Transitional lumbosacral vertebral body. Transversely oriented fracture involving the right femoral neck is noted with slight lateral displacement and overriding. A healing left inferior pubic ramus fracture is noted with mild periosteal reaction noted. No additional fracture or dislocation. The sacroiliac joints are intact. No suspicious radiopaque foreign body. IMPRESSION: Recent appearing mildly displaced and overriding right femoral neck fracture. Healing nondisplaced left inferior pubic ramus fracture. Additional postsurgical and chronic findings as above. Dictated by: Dictated on workstation # [id number]
== END 2023-01-02 01:21 | disposition short-term general hospital (02) ==
LOC: EDUNIT# 00:17 → ER FS 00:18
DX: S72.001A Fracture of unspecified part of neck of right femur, initial encounter for closed fracture (principal); S51.011A Laceration without foreign body of right elbow, initial encounter; S81.011A Laceration without foreign body, right knee, initial encounter; W01.0XXA Fall on same level from slipping, tripping and stumbling without subsequent striking against object, initial encounter
CPT/HCPCS: 36415; 73502; 80053; 85025; 85610; 85730

== ENCOUNTER → 2023-05-01 | Outpatient (CLI) | payer MEDICARE ==
[~2023-05-01] MED LIST changes: +CATHETER FLUSH 10 ML SYR IVP PRN; -PREG100C55 PO; +PREG100C56 PO; +REGADENOSON 0.4 MG/5 ML SYR IV ONE
[2023-05-01 09:15] VITALS: BP 161/88
--- NOTE | 2023-05-03 12:06 | STRESS TEST ---
DATE OF SERVICE: 05/01/2023 RESTING AND POST REGADENOSON TECHNETIUM-99M TETROFOSMIN SPECT CT IMAGING ORDERING PHYSICIAN: Medina Grimm APRN. PRIMARY PHYSICIAN: [facility]. CLINICAL DIAGNOSIS: Coronary artery disease. Baseline images were carried out after injection of 10.97 mCi of technetium-99m tetrofosmin. This was followed by 0.4 mg regadenoson and 31.7 mCi of technetium-99m tetrofosmin for stress imaging. The electrocardiogram showed sinus rhythm at baseline. It did not change significantly with regadenoson infusion. The patient complains of some nausea and shortness of breath following regadenoson infusion, which resolved in a few minutes. Review of images at rest and following stress does not indicate any significant perfusion defects consistent with myocardial ischemia or infarction. Gated images show normal global left ventricular systolic function with normal regional wall motion. Left ventricular ejection fraction is calculated to be 75%. CONCLUSIONS: 1. No evidence of any significant myocardial ischemia or infarction on this study. 2. Normal regional wall motion. 3. Normal global left ventricular systolic function with a calculated ejection fraction of 75%. Job ID: [id number] DocumentID: [id number] Dictated Date: 05/03/2023 09:31:45 Casualty Claim Adjuster Date: 05/03/2023 12:04:00 Dictated By: REID CARDENAS MD; SOL; FACP; FACC;
== END ==
LOC: CARD 07:06
PROVIDERS: ATTEND Nurse Practitioner Family
DX: I34.0 Nonrheumatic mitral (valve) insufficiency (principal); I25.10 Atherosclerotic heart disease of native coronary artery without angina pectoris
CPT/HCPCS: 78452; 93017; A9502